=== PATIENT | female | born 1940 | race Caucasian/White ===

== ENCOUNTER → 2020-06-26 11:37 | Outpatient (BNVA) | payer MEDICARE, SELFPAY | PROVIDERS: PCP Internal Medicine; Referring Provider Internal Medicine; Visit Provider Nurse Practitioner | DX: K58.0 Irritable bowel syndrome with diarrhea (principal); K21.9 Gastro-esophageal reflux disease without esophagitis; K80.20 Calculus of gallbladder without cholecystitis without obstruction; Z79.899 Other long term (current) drug therapy | CPT/HCPCS: 99213 ==

== ENCOUNTER → 2020-07-02 09:11 | Outpatient (BNVA) | payer MEDICARE, SELFPAY | PROVIDERS: PCP Internal Medicine; Referring Provider Internal Medicine; Visit Provider Internal Medicine | DX: J44.9 Chronic obstructive pulmonary disease, unspecified (principal); E66.9 Obesity, unspecified; Z68.41 Body mass index [BMI] 40.0-44.9, adult; Z79.899 Other long term (current) drug therapy | CPT/HCPCS: 99213 ==

== ENCOUNTER 2020-08-20 16:17 | Outpatient (REF) | payer MEDICARE, SELFPAY ==
[2020-08-20 17:27] LABS: Alanine Aminotransferase 16 U/L (0-31); Albumin Level 3.9 g/dL (3.5-5.0); Alkaline Phosphatase 97 U/L (39-117); Anion Gap 13 (12-20); Aspartate Amino Transferase 26 U/L (5-31); Bilirubin Total 0.5 mg/dL (0.0-1.0); Blood Urea Nitrogen 18 mg/dL (9-16); Calcium 9.8 mg/dL (8.4-10.2); Carbon Dioxide 29 mmol/L (22-29); Chloride 105 mmol/L (96-108); Estimated Glomerular Filt Rate 37; Glucose Random 116 mg/dL (60-115); Potassium 4.2 mmol/l (3.3-5.1); Sodium 143 mmol/L (135-145); Total Protein 7.4 g/dL (6.5-8.0)
[2020-08-20 17:48] LABS: Free T4 (Free Thyroxine) 0.99 ng/dL (0.71-1.85); Thyroid Stimulating Hormone 3.31 uIU/mL (0.32-4.0); Vitamin D 25-OH Total 64.8 ng/mL (>30)
== END 2020-08-20 16:18 | disposition home or self-care (01) ==
LOC: HO.LAB 16:17
PROVIDERS: PCP Internal Medicine; Visit Provider Internal Medicine
DX: J44.9 Chronic obstructive pulmonary disease, unspecified (principal); N18.9 Chronic kidney disease, unspecified; E03.9 Hypothyroidism, unspecified; M85.89 Other specified disorders of bone density and structure, multiple sites
CPT/HCPCS: 80053; 82306; 84439; 84443

== ENCOUNTER 2020-10-09 11:24 | Outpatient (REF) | payer MEDICARE, SELFPAY ==
--- NOTE | 2020-10-09 | MM_ITS ---
EXAMINATION: MM SCREENING DIGITAL BREAST TOMOSYNTHESIS, BILATERAL CLINICAL INFORMATION: Screening. Asymptomatic. Prior history left lumpectomy for breast cancer 2014. COMPARISON: Mammography: 09/28/2018, 02/22/2018, 02/07/2017, 02/04/2016 TECHNIQUE: Digital breast tomosynthesis is performed in both the craniocaudal and mediolateral oblique views along with computer-aided detection (CAD). Synthesized 2D images are generated from the tomosynthesis. Additional exaggerated left CC view is provided. FINDINGS: There are scattered areas of fibroglandular density (ACR BI-RADS breast composition Category b). There are post therapy changes on left with mild reduced breast size and old scarring upper outer quadrant. Neither breast shows interval mass or architectural abnormality or abnormal calcifications. There are no significant changes. MM/MM tomosynthesis screening BI IMPRESSION: No mammographic evidence of malignancy. Post therapy changes left breast. ASSESSMENT: BI-RADS 2: Benign RECOMMENDATION: Routine annual mammography screening. This patient's information was entered into a reminder system with a target due date for their next mammogram.
== END 2020-10-09 11:25 | disposition home or self-care (01) ==
LOC: HO.MAMMO 11:24
PROVIDERS: Visit Provider Internal Medicine
DX: Z12.31 Encounter for screening mammogram for malignant neoplasm of breast (principal)
CPT/HCPCS: 77063; 77067

== ENCOUNTER 2020-10-21 16:49 | Outpatient (REF) | payer MEDICARE, SELFPAY ==
[2020-10-21 18:25] LABS: Anion Gap 14 (12-20); Blood Urea Nitrogen 21 mg/dL (9-16); Carbon Dioxide 30 mmol/L (22-29); Chloride 103 mmol/L (96-108); Estimated Glomerular Filt Rate 37; Potassium 4.6 mmol/L (3.3-5.1); Sodium 142 mmol/L (135-145)
== END 2020-10-21 16:50 | disposition home or self-care (01) ==
LOC: HO.LAB 16:49
PROVIDERS: PCP Internal Medicine; Visit Provider Internal Medicine Hypertension Specialist
DX: R31.9 Hematuria, unspecified (principal); I12.9 Hypertensive chronic kidney disease with stage 1 through stage 4 chronic kidney disease, or unspecified chronic kidney disease; N18.9 Chronic kidney disease, unspecified
CPT/HCPCS: 36415; 80051; 82565; 84520

== ENCOUNTER → 2020-11-04 09:32 | Outpatient (BNVA) | payer MEDICARE, SELFPAY | PROVIDERS: Visit Provider Internal Medicine | DX: E66.9 Obesity, unspecified (principal); J45.909 Unspecified asthma, uncomplicated; J44.9 Chronic obstructive pulmonary disease, unspecified | CPT/HCPCS: 99212 ==

== ENCOUNTER → 2020-11-23 08:04 | Outpatient (BNV) | payer MEDICARE, SELFPAY | PROVIDERS: PCP Internal Medicine; Visit Provider Internal Medicine | DX: R92.1 Mammographic calcification found on diagnostic imaging of breast (principal); Z85.3 Personal history of malignant neoplasm of breast; M81.0 Age-related osteoporosis without current pathological fracture | CPT/HCPCS: 99213; 99214 ==

== ENCOUNTER → 2020-12-02 08:46 | Outpatient (BNVA) | payer MEDICARE, SELFPAY | PROVIDERS: PCP Internal Medicine; Visit Provider Surgery | DX: C50.919 Malignant neoplasm of unspecified site of unspecified female breast (principal) | CPT/HCPCS: 99212 ==

== ENCOUNTER 2020-12-02 11:04 | Outpatient (REF) | payer MEDICARE, SELFPAY ==
--- NOTE | ~2020-12-02 | XR_ITS ---
EXAMINATION: XR CERVICAL SPINE CLINICAL INFORMATION: Pain. COMPARISON: None TECHNIQUE: 3 views of the cervical spine FINDINGS: There is curvature of the mid cervical spine to the left and lower cervical and upper thoracic spine to the right. Bone alignment is otherwise normal. There is degenerative spondylosis and degenerative disc disease at C4-C5 C5-C6 and C6-C7. Prevertebral soft tissues are normal. XR/XR cervical spine min 6V IMPRESSION: Degenerative spondylosis and degenerative disc disease from C4-C5 to C6-C7.
[2020-12-02 13:52] LABS: MANUAL DIFF FLAG NO
[2020-12-02 14:12] LABS: Basophils Absolute Auto 0.1 X10*3/uL (0.0-0.2); Basophils Percent Auto 1.1 % (0-2); Eosinophils Absolute Auto 0.3 X10*3/uL (0.0-0.4); Eosinophils Percent Auto 4.4 % (0-4); Hematocrit 39.5 % (37-47); Hemoglobin 12.6 g/dl (12.0-16.0); Imm Gran Abs Auto 0.03 X10*3/uL (0.00-0.03); Imm Gran Pct Auto 0.4 % (0.0-0.4); Lymphocytes Absolute Auto 2.2 X10*3/uL (1.2-4.9); Lymphocytes Percent Auto 30.8 % (20-40); Mean Corpuscular HGB Conc 31.9 g/dl (31.0-35.0); Mean Corpuscular Hemoglobin 32.1 pg (27.0-33.0); Mean Corpuscular Volume 100.5 fL (80-98); Mean Platelet Volume 10.5 fL (9.4-12.3); Monocytes Absolute Auto 0.7 X10*3/uL (0.1-1.2); Monocytes Percent Auto 10.2 % (2-11); Neutrophils Absolute Auto 3.8 X10*3/uL (2.0-8.3); Neutrophils Percent Auto 53.1 % (45-73); Platelet Count 249 X10*3/uL (160-400); Red Blood Count 3.93 X10*6/uL (4.20-5.50); Red Cell Distribution Width 12.7 % (11.0-16.0); White Blood Count 7.2 X10*3/uL (4.8-10.8)
[2020-12-02 14:26] LABS: Alanine Aminotransferase 13 U/L (0-31); Albumin Level 3.8 g/dL (3.5-5.0); Alkaline Phosphatase 76 U/L (39-117); Anion Gap 14 (12-20); Aspartate Amino Transferase 22 U/L (5-31); Bilirubin Total 0.8 mg/dL (0.0-1.0); Blood Urea Nitrogen 23 mg/dL (9-16); C Reactive Protein 0.32 mg/dL (< or = 0.50); Calcium 9.7 mg/dL (8.4-10.2); Carbon Dioxide 28 mmol/L (22-29); Chloride 104 mmol/L (96-108); Estimated Glomerular Filt Rate 42; Glucose Random 87 mg/dL (60-115); Potassium 3.7 mmol/L (3.3-5.1); Sodium 142 mmol/L (135-145); Total Protein 7.2 g/dL (6.5-8.0)
[2020-12-02 14:43] LABS: Free T4 (Free Thyroxine) 0.84 ng/dL (0.71-1.85); Thyroid Stimulating Hormone 2.02 uIU/mL (0.32-4.0)
== END 2020-12-02 11:05 | disposition home or self-care (01) ==
LOC: HO.10HDL 11:04
PROVIDERS: Visit Provider Internal Medicine
DX: M54.2 Cervicalgia (principal); I12.9 Hypertensive chronic kidney disease with stage 1 through stage 4 chronic kidney disease, or unspecified chronic kidney disease; N18.9 Chronic kidney disease, unspecified; E03.9 Hypothyroidism, unspecified
CPT/HCPCS: 36415; 72052; 80053; 84439; 84443; 85025; 86140; 99212

== ENCOUNTER 2020-12-08 10:14 | Outpatient (REF) | payer MEDICARE, SELFPAY ==
--- NOTE | ~2020-12-08 | MR_ITS ---
EXAMINATION: MR CERVICAL SPINE WITHOUT CONTRAST CLINICAL INFORMATION: 80-year-old with neck pain and right arm radiculopathy. COMPARISON: 12/02/2020 x-rays showed degenerative changes. TECHNIQUE: MRI of the cervical spine was obtained using routine sequences without contrast. FINDINGS: Alignment: There is lordotic loss with straightening of the cervical spine which is nonspecific but could be partly positional in nature. Minimal anterolisthesis at T2-T3 and T3-T4 is noted with trace anterolisthesis at C3-C4. Craniocervical Junction/C1-C2 Articulations:?Intact and aligned. Visualized Intracranial Structures: Mild diffuse generalized volume loss. 5 mm patchy T2 hyperintensity noted in the left peritrigonal white matter, likely chronic ischemic change. Vertebral Bodies: Normal height. Bone Marrow: Degenerative endplate changes at C4-C5 and C5-C6. Otherwise, no suspicious marrow replacing process or focally aggressive osseous lesion. Paraspinal Soft Tissues: There are bilateral parotid masses involving the superficial lobes of both parotid glands, which measure approximately 2.5 cm in maximum dimension on the right and 1.9 cm maximum dimension on the left. The bilaterality suggests the possibility of Warthin's tumors. No obvious cervical lymphadenopathy. C2-C3: Disc space height is well maintained without disc herniation, spondylosis, DJD, canal or neural foraminal stenosis. C3-C4: Disc space height is well maintained with minimal anterolisthesis and a tiny central disc protrusion with minimal indentation of the ventral thecal sac without cord impingement. There is minor facet arthrosis bilaterally without significant canal or neural foraminal stenosis. C4-C5: Moderate loss of disc space height is noted with disc desiccation and degenerative marrow signal changes along the endplates with moderate anterior marginal spondylosis. There is broad-based posterior disc osteophyte complex, with flattening of the dural sac without cord compression. There is ksij-li-odfecupc central spinal canal stenosis, and there is bilateral uncovertebral spurring with facet hypertrophic change, with moderate right-sided and mild left-sided neural foraminal stenosis. C5-C6: Moderate loss of disc space height and disc desiccation are noted with degenerative marrow signal changes along the endplates and moderate anterior marginal spondylosis. Posterior disc osteophyte complex is noted with effacement of the dural sac asymmetric to the left, with flattening of the ventral aspect of the spinal cord on the left associated with cord impingement. Some degree of spinal cord volume loss is suspected suggesting some degree of spondylitic myelomalacia. There is bilateral uncovertebral spurring with moderate right-sided and mild left-sided neural foraminal stenosis, and there is moderate central spinal canal stenosis asymmetric to the left. C6-C7: Moderate loss of disc space height is noted with anterior marginal spondylosis and disc desiccation. Mild posterior disc osteophyte complex is noted with mild flattening of the dural sac without cord impingement. There is mild spinal canal stenosis. There is bilateral uncovertebral spurring, left more than right, with moderate left-sided neural foraminal stenosis. C7-T1: Disc space height is well maintained. Minor spondylosis noted. No disc herniation, significant DJD, canal or neural foraminal stenosis. The cervical and visualized upper thoracic spinal cord is normal in signal intensity throughout, without focal lesion, edema or syrinx formation. Possible mild spinal cord volume loss at C5-C6. MR/MR cervical spine wo con IMPRESSION: 1. Lordotic loss, with multilevel subluxations. Multilevel DDD, spondylosis and DJD with posterior disc osteophyte complexes are noted. 2. 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 3. Multilevel bilateral neural foraminal stenosis, mostly [id number] in degree, as detailed above. 4. BILATERAL PAROTID MASSES ARE SUSPECTED. THIS COULD REFLECT WARTHIN'S TUMORS. CT OF THE NECK WITH CONTRAST IS RECOMMENDED TO FURTHER ASSESS. 5. Small patchy zone of T2 hyperintensity in the left peritrigonal white matter is noted likely reflecting minimal chronic microvascular ischemic white matter change. The [facility] staff will call to confirm receipt of this report with acknowledgment of the findings and recommendations.
== END 2020-12-08 10:15 | disposition home or self-care (01) ==
LOC: HO.MRI 10:14
PROVIDERS: Visit Provider Internal Medicine
DX: M54.12 Radiculopathy, cervical region (principal); M54.9 Dorsalgia, unspecified; R93.7 Abnormal findings on diagnostic imaging of other parts of musculoskeletal system
CPT/HCPCS: 72141

== ENCOUNTER → 2021-01-14 11:12 | Outpatient (BNVA) | payer MEDICARE, SELFPAY | PROVIDERS: PCP Internal Medicine; Visit Provider Nurse Practitioner | DX: Z13.89 Encounter for screening for other disorder (principal) | CPT/HCPCS: Q3014 ==

== ENCOUNTER 2021-03-11 05:15 | Emergency (ER) | payer MEDICARE, SELFPAY ==
--- NOTE | ~2021-03-11 | XR_ITS ---
EXAMINATION: XR CHEST CLINICAL INFORMATION: Cough. COMPARISON: None TECHNIQUE: Frontal view of the chest was obtained. FINDINGS: The lungs are hypoexpanded without acute pneumonic process. Heart size is enlarged. The pulmonary vascularity is normal. No gross bony abnormality seen. XR/XR chest 1V IMPRESSION: Mild cardiomegaly. No acute process seen
--- NOTE | ~2021-03-11 | CT_ITS ---
EXAMINATION: CT SOFT TISSUE NECK WITHOUT CONTRAST CLINICAL INFORMATION: Evaluate abscess right side. COMPARISON: CT scan of the thoracic spine 09/19/2019. TECHNIQUE: Helical imaging was performed in the axial plane with generation of coronal and sagittal reformatted images. This CT examination was performed using dose optimization techniques as appropriate, variously including the following: *Automated exposure control *Adjustment of mA and/or kV according to patient size (this includes techniques or standardized protocols for targeted exams where dose is matched to indication/reason for exam; i.e. extremities or head) *Use of iterative reconstruction technique DLP: 815 mGy-cm FINDINGS: The diagnostic accuracy of this examination is limited due to the absence of intravenous contrast. At the site of the palpable tissue marker placed over the right parotid gland and there is a well marginated intraparotid mass that measures up to 2.2 cm in maximal transaxial dimension. A similar soft tissue mass is visualized within the tail of the left parotid gland. No pathologically enlarged cervical lymph nodes. No mediastinal or axillary adenopathy is visualized within the [id number]-mydl of this examination. Pharyngeal mucosal spaces are symmetric. Parapharyngeal and retromaxillary fat is preserved. Business Executive spaces are symmetric. Submandibular glands are normal. The tongue base and epiglottis are normal. Preepiglottic fat is preserved. Glottic and subglottic airways are widely patent. Scattered atherosclerotic calcification involves the aortic arch apex. Carotid spaces are unremarkable. Visualized lung apices are clear. There is a stable compression deformity of the T7 vertebral body that is included within the fnkrg-[id number]-umhl of this examination with impaction of the lower endplate resulting in approximately 40% vertebral height loss centrally and slight anterior wedging. Otherwise no acute osseous finding. CT/CT soft tissue neck wo con IMPRESSION: There are well marginated soft tissue masses involving both parotid glands. Given the bilaterality, these findings may represent Warthin's tumors or perhaps pleomorphic adenomas. The possibility of enlarged intraparotid lymph nodes can also be considered. No worrisome soft tissue mass or adenopathy is visualized elsewhere within the [id number] of this examination. A compression deformity of the T7 vertebral body has remained stable when compared to CT imaging from 09/19/2019.
[2021-03-11 05:55] VITALS: BP 197/91; RESP 20; TEMP 35.7; O2SAT 96; BMI 30.2
--- NOTE | 2021-03-11 07:05 | ED_ITS ---
HPI - General Adult General Chief complaint: General Medical Stated complaint: swollen neck/face Time Seen by Provider: 03/11/21 07:04 Source: patient Mode of arrival: ambulatory Limitations: no limitations History of Present Illness HPI narrative: 80 yo female with hx of COPD, chronic pain issues, IBS, GERD, breast cancer comes in with 2 days of overall feeling unwell as well as swelling and redness of her parotid gland areas post biopsy 03/01 she is not on antibiotics, tried tramadol and oxycodone without relief, worried they are infected, from waiting room to treatment room the walk also triggered her COPD a nd she is wheezing MD complaint: facial pain Onset (ago): day(s) (2) Location: face Severity: severe Quality: aching, crushing and dull Pain Consistency: constant Relieving factors: none Exacerbating factors: none Associated symptoms: cough, headaches, loss of appetite, malaise and shortness of breath Treatments prior to arrival: other (tried oxycodone and tramadol without relief) Related Data Home Medications Medication Instructions Recorded Confirmed alprazolam 0.25 mg tablet 0.25 mg PO BID 06/15/20 03/11/21 cholecalciferol (vitamin D3) 25 25 mcg PO DAILY 06/15/20 03/11/21 mcg (1,000 unit) capsule hydrochlorothiazide 25 mg tablet 25 mg PO DAILY 06/15/20 03/11/21 levothyroxine 50 mcg tablet 50 mcg PO DAILY 06/15/20 03/11/21 metoprolol succinate 50 mg 50 mg PO DAILY 06/15/20 03/11/21 tablet,extended release 24 hr omeprazole 40 mg capsule,delayed 40 mg PO DAILY 06/15/20 03/11/21 release oxycodone 5 mg tablet 5 mg PO QID PRN 06/15/20 03/11/21 tiotropium bromide 18 mcg capsule 18 mcg INHALATION DAILY 06/15/20 03/11/21 with inhalation device tramadol 50 mg tablet 50 mg PO BID PRN 06/15/20 03/11/21 albuterol sulfate 2.5 mg INHALATION Q4H PRN 03/11/21 03/11/21 aspirin [Aspir-81] 81 mg PO DAILY 03/11/21 03/11/21 fluticasone propion-salmeterol 1 inh INHALATION BID 03/11/21 03/11/21 [Advair Diskus] Previous Rx's Medication Instructions Recorded Ventolin HFA 90 mcg/actuation 2 puff INHALATION Q6H PRN #18 g NS 07/30/20 aerosol inhaler imipramine HCl 10 mg tablet 10 mg PO BEDTIME #90 tab 11/24/20 doxycycline hyclate 100 mg PO BID 7 Days #14 cap 03/11/21 prednisone 40 mg PO DAILY 5 Days #10 tab 03/11/21 Allergies Allergy/AdvReac Type Severity Reaction Status Date / Time adhesive [ADHESIVE] Allergy Unknown UNKNOWN Verified 03/11/21 05:55 codeine [CODEINE] Allergy Unknown UNKNOWN, Verified 03/11/21 05:55 rash fish derived [FISH] Allergy Unknown HIVES Verified 03/11/21 05:55 gabapentin Allergy Unknown severe Verified 03/11/21 05:55 urinary incont. hydrocodone [Vicodin] Allergy Unknown Unknown Verified 03/11/21 05:55 Iodinated Contrast Media Allergy Unknown HIVES Verified 03/11/21 05:55 [IV Dye, Iodine Containing] nitrofurantoin Allergy Unknown HIVES Verified 03/11/21 05:55 [Nitrofurantoin] Penicillins [PENICILLINS] Allergy Unknown RASH Verified 03/11/21 05:55 Sulfa (Sulfonamide Allergy Unknown RASH Verified 03/11/21 05:55 Antibiotics) [SULFA (SULFONAMIDE ANTIBIOTICS)] valsartan [From DIOVAN] Allergy Unknown HIVES Verified 03/11/21 05:55 vancomycin [VANCOMYCIN] Allergy Unknown RASH Verified 03/11/21 05:55 ibuprofen [IBUPROFEN] AdvReac Unknown UNKNOWN Verified 03/11/21 05:55 Review of Systems Review of Systems: Constitutional : No Weight loss, No Fever, pos Chills, pos Fatigue, No Malaise ENT/Mouth : No sore throat, No Rhinorrhea Eyes: No Eye Pain, No Swelling, No Redness Cardiovascular : No Chest Pain, pos SOB, No Dyspnea on Exertion, No Orthopnea, No Edema, No Palpitations Respiratory : No Cough, No Sputum, No Wheezing Gastrointestinal : No Nausea, No Vomiting, No Diarrhea, No Constipation, No abdominal Pain, No Hematochezia, No Melena Genitourinary : No Dysuria, No Urinary Frequency, No Hematuria, Musculoskeletal : pos joint pain, pos Myalgias, No Joint Swelling Skin : pos Skin Lesions, No rash Neuro : pos Weakness, No Numbness, No Dizziness, No Headache Psych : No Anxiety/Panic, No Depression Heme/Lymph: No Bruising, No Bleeding,No Lymphadenopathy Endocrine : No Polyuria, No Polydipsia All other systems reviewed and are negative [facility] Past Medical History Attestation statement: The following information was validated with the patient. Medical History Asthma Breast cancer C. difficile colitis COPD (chronic obstructive pulmonary disease) Fusion of toes of right foot Obesity Ovarian cancer Right humeral fracture Surgical History H/O colonoscopy H/O hysterectomy for benign disease H/O kyphoplasty H/O lymph node biopsy History of tonsillectomy and adenoidectomy History of total bilateral knee replacement Hx of cataract surgery Family History Family History Father No problems noted. Mother Breast cancer Sister Breast cancer Social History Social History (Updated 03/11/21 @ 07:20 by Jacey Thomason DO) Alcohol intake: never Patient Tobacco Use Status: Former Tobacco user Smoked in Last 30 Days: No Use of substances other than those prescribed or required for medical reasons: No Substance Use Type: Marijuana Advance Directives: No Advance Directives Information Provided: No Physical Exam Vital Signs: Vital Signs: Last Vital Signs Temp 96.3 F L 03/11/21 05:55 Pulse 88 03/11/21 12:36 Resp 18 03/11/21 12:36 BP 162/76 H 03/11/21 12:36 Pulse Ox 96 03/11/21 12:36 Body Mass Index 30.2 Appearance: Alert. Oriented X3. anxious in pain mild acute distress. Eyes: Pupils equal, round and reactive to light. ENT: Pharynx normal R bilateral mild swelling, warmth, erythema over mandibles no submandibular swelling noted, no swelling into the neck Neck: Normal inspection. Neck supple. CVS: Normal heart rate and rhythm. Pulses normal. Respiratory: No respiratory distress. Breath sounds audible diffuse end exp wheezes Abdomen: Soft and nontender. Skin: Skin warm and dry. Normal skin color. Normal skin turgor. Extremities: No lower extremity edema. No calf ttp Neuro: Oriented X 3. No motor deficit. No sensory deficit. Course Course Course Narrative: feels much better, resp status improved, R gland is more swollen now but she feels better - CT scan for abscess ordered no discrete abscess will refer to her ENT and start on doxy for possible infection - NO PROGRESSION OF SWELLING AT THIS TIME ON RECHECK Medical Decision Making MDM Narrative Medical decision making narrative: 80 yo female with hx of COPD, chronic pain issues, IBS, GERD, breast cancer comes in with 2 days of overall feeling unwell as well as swelling and redness of her parotid gland areas post biopsy 03/01 she is not on antibiotics, tried tramadol and oxycodone without relief, worried they are infected, from waiting room to treatment room the walk also triggered her COPD and she is wheezing she will need nebs, steroids for her COPD flare but given her swelling in the area of biopsy which appears newly infected - labs, cultures, IV morphine for pain, start levofloxacin given her sig allergies to medications, dispo per results and findings, swelling is not severe at the biopsy sites they are soft doubt abscess Lab Data Result diagrams: 03/11/21 07:35 03/11/21 07:35 Labs: Lab Results 03/11/21 03/11/21 03/11/21 Range/Units 07:35 07:35 07:35 WBC 10.9 H (4.8-10.8) X10*3/uL RBC 4.22 (4.20-5.50) X10*6/uL Hgb 13.8 (12.0-16.0) g/dl Hct 41.4 (37-47) % MCV 98.1 H (80-98) fL MCH 32.7 (27.0-33.0) pg MCHC 33.3 (31.0-35.0) g/dl RDW 12.4 (11.0-16.0) % Plt Count 262 (160-400) X10*3/uL MPV 10.1 (9.4-12.3) fL Immature Gran % (Auto) 0.5 H (0.0-0.4) % Neut % (Auto) 69.7 (45-73) % Lymph % (Auto) 19.1 L (20-40) % [place] % (Auto) 8.1 (2-11) % Eos % (Auto) 2.1 (0-4) % Baso % (Auto) 0.5 (0-2) % Lymph # (Auto) 2.1 (1.2-4.9) X10*3/uL [place] # (Auto) 0.9 (0.1-1.2) X10*3/uL Eos # (Auto) 0.2 (0.0-0.4) X10*3/uL Baso # (Auto) 0.1 (0.0-0.2) X10*3/uL Abs Immat Gran (auto) 0.06 H (0.00-0.03) X10*3/uL Absolute Neuts (auto) 7.6 (2.0-8.3) X10*3/uL Absolute Nucleated RBC 0.000 (0.0-0.012) X10*3/uL Nucleated RBC % (auto) 0.0 (0.0-0.2) /100WBC Sodium 138 (135-145) mmol/L Potassium 3.8 (3.3-5.1) mmol/L Chloride 102 (96-108) mmol/L Carbon Dioxide 28 (22-29) mmol/L Anion Gap 12 (12-20) BUN 13 (9-16) mg/dL Creatinine 1.21 (0.5-1.4) mg/dL Estim Creat Clear Calc 31.0 Estimated GFR 43 Random Glucose 110 (60-115) mg/dL Lactic Acid (0.5-2.0) mmol/L Calcium 10.3 H D (8.4-10.2) mg/dL Magnesium 1.4 L* (1.6-2.6) mg/dL Total Bilirubin 1.0 (0.0-1.0) mg/dL Direct Bilirubin 0.5 (0.0-0.5) mg/dL AST 24 (5-31) U/L ALT 13 (0-31) U/L Alkaline Phosphatase 74 (39-117) U/L Total Protein 7.6 (6.5-8.0) g/dL Albumin 4.0 (3.5-5.0) g/dL COVID-19 ([facility]) Negative (Negative) COVID-19 Clin Com See Note 03/11/21 Range/Units 07:35 WBC (4.8-10.8) X10*3/uL RBC (4.20-5.50) X10*6/uL Hgb (12.0-16.0) g/dl Hct (37-47) % MCV (80-98) fL MCH (27.0-33.0) pg MCHC (31.0-35.0) g/dl RDW (11.0-16.0) % Plt Count (160-400) X10*3/uL MPV (9.4-12.3) fL Immature Gran % (Auto) (0.0-0.4) % Neut % (Auto) (45-73) % Lymph % (Auto) (20-40) % [place] % (Auto) (2-11) % Eos % (Auto) (0-4) % Baso % (Auto) (0-2) % Lymph # (Auto) (1.2-4.9) X10*3/uL [place] # (Auto) (0.1-1.2) X10*3/uL Eos # (Auto) (0.0-0.4) X10*3/uL Baso # (Auto) (0.0-0.2) X10*3/uL Abs Immat Gran (auto) (0.00-0.03) X10*3/uL Absolute Neuts (auto) (2.0-8.3) X10*3/uL Absolute Nucleated RBC (0.0-0.012) X10*3/uL Nucleated RBC % (auto) (0.0-0.2) /100WBC Sodium (135-145) mmol/L Potassium (3.3-5.1) mmol/L Chloride (96-108) mmol/L Carbon Dioxide (22-29) mmol/L Anion Gap (12-20) BUN (9-16) mg/dL Creatinine (0.5-1.4) mg/dL Estim Creat Clear Calc Estimated GFR Random Glucose (60-115) mg/dL Lactic Acid 1.7 (0.5-2.0) mmol/L Calcium (8.4-10.2) mg/dL Magnesium (1.6-2.6) mg/dL Total Bilirubin (0.0-1.0) mg/dL Direct Bilirubin (0.0-0.5) mg/dL AST (5-31) U/L ALT (0-31) U/L Alkaline Phosphatase (39-117) U/L Total Protein (6.5-8.0) g/dL Albumin (3.5-5.0) g/dL COVID-19 ([facility]) (Negative) COVID-19 Clin Com ECG Data Attestation: I personally reviewed and interpreted this ECG as follows: Interpretation: Rate: 87 Rhythm: NSR [place]: normal Normal P waves. Normal BRAD. Normal QRS complex. ST T wave : nonspecific, no NAA, q waves inf leads qTC: normal prior studies: no acute ischemia The study has been interpreted contemporaneously by me. . Discharge Plan Discharge Clinical Impression: Hypomagnesemia COPD (chronic obstructive pulmonary disease) Qualifiers: COPD type: COPD with acute exacerbation Qualified Code(s): J44.1 - Chronic obstructive pulmonary disease with (acute) exacerbation Cellulitis Qualifiers: Site of cellulitis: face Qualified Code(s): L03.211 - Cellulitis of face Patient Disposition: Home, Self-Care Instructions: COPD (Chronic Obstructive Pulmonary Disease) (ED), Hypomagnesemia (ED) Additional Instructions: return to ED for any worsening symptoms or concerns PLEASE CALL YOUR ENT DOCTOR TODAY Prescriptions: New doxycycline hyclate 100 mg capsule 100 mg PO BID 7 Days Qty: 14 RF: 0 prednisone 20 mg tablet 40 mg PO DAILY 5 Days Qty: 10 RF: 0 No Action albuterol sulfate [Ventolin HFA] 90 mcg/actuation HFA aerosol inhaler 2 puff inhalation Q6H PRN (Reason: shortness of breath or wheezing) Qty: 18 RF: 3 imipramine HCl 10 mg tablet 10 mg PO BEDTIME Qty: 90 RF: 3 aspirin [Aspir-81] 81 mg Tablet,Delayed Release (Dr/Ec) 81 mg PO DAILY RF: 0 albuterol sulfate 2.5 mg /3 mL (0.083 %) Solution For Nebulization 2.5 mg INHALATION Q4H PRN (Reason: Wheezing) RF: 0 fluticasone propion-salmeterol [Advair Diskus] 500-50 mcg/dose Blister With Device 1 inh INHALATION BID RF: 0 oxycodone 5 mg tablet 5 mg PO QID PRN (Reason: Pain) RF: 0 Spiriva with HandiHaler 18 mcg capsule, w/inhalation device 18 mcg inhalation DAILY RF: 0 tramadol 50 mg tablet 50 mg PO BID PRN (Reason: Pain) RF: 0 alprazolam 0.25 mg tablet 0.25 mg PO BID RF: 0 metoprolol succinate 50 mg tablet extended release 24 hr 50 mg PO DAILY RF: 0 hydrochlorothiazide 25 mg tablet 25 mg PO DAILY RF: 0 levothyroxine 50 mcg tablet 50 mcg PO DAILY RF: 0 omeprazole 40 mg capsule,delayed release(DR/EC) 40 mg PO DAILY RF: 0 cholecalciferol (vitamin D3) 25 mcg (1,000 unit) capsule 25 mcg PO DAILY RF: 0 Interventions: ED Discharge Assessment Last Done: 03/11/21 12:33 Discharge Date/Time: 03/11/21 12:36
--- NOTE | 2021-03-11 07:14 | ECG_ITS ---
Test Reason : SHORT OF BREATH Blood Pressure : / mmHG Vent. Rate : 087 BPM Atrial Rate : 087 BPM P-R Int : 162 ms QRS Dur : 082 ms QT Int : 376 ms P-R-T Axes : 062 021 066 degrees QTc Int : 452 ms Normal sinus rhythm Inferior infarct (cited on or before 25-AUG-2019) Abnormal ECG When compared with ECG of 25-AUG-2019 03:51, Nonspecific T wave abnormality, worse in Anterior leads Referred By: Jacey Thomason Electronically Signed By:Star Jama
[2021-03-11] MEDS: Albuterol Sulfate (0.083%) 2.5 MG/3 ML VIAL.NEB 5 MG INHALE (07:17)
[2021-03-11 07:18] VITALS: PULSE 78; O2SAT 98
[2021-03-11] MEDS: ondansetron HCL 4 MG/2 ML VIAL IVPUSH (07:42)
[2021-03-11] MEDS: methylPREDNISolone Sod Succ 125 MG/2 ML VIAL IVPUSH (07:42)
[2021-03-11] MEDS: levoFLOXacin/D5W 500 MG/100 ML PIGGYBACK 100 MG IV (07:42)
[2021-03-11] MEDS: Morphine Sulfate 4 MG/ML CARTRIDGE IVPUSH ×2 (07:42→10:56)
[2021-03-11 07:43] LABS: MANUAL DIFF FLAG NO
[2021-03-11 07:45] LABS: Basophils Absolute Auto 0.1 X10*3/uL (0.0-0.2); Basophils Percent Auto 0.5 % (0-2); Eosinophils Absolute Auto 0.2 X10*3/uL (0.0-0.4); Eosinophils Percent Auto 2.1 % (0-4); Hematocrit 41.4 % (37-47); Hemoglobin 13.8 g/dl (12.0-16.0); Imm Gran Abs Auto 0.06 X10*3/uL (0.00-0.03); Imm Gran Pct Auto 0.5 % (0.0-0.4); Lymphocytes Absolute Auto 2.1 X10*3/uL (1.2-4.9); Lymphocytes Percent Auto 19.1 % (20-40); Mean Corpuscular HGB Conc 33.3 g/dl (31.0-35.0); Mean Corpuscular Hemoglobin 32.7 pg (27.0-33.0); Mean Corpuscular Volume 98.1 fL (80-98); Mean Platelet Volume 10.1 fL (9.4-12.3); Monocytes Absolute Auto 0.9 X10*3/uL (0.1-1.2); Monocytes Percent Auto 8.1 % (2-11); Neutrophils Absolute Auto 7.6 X10*3/uL (2.0-8.3); Neutrophils Percent Auto 69.7 % (45-73); Platelet Count 262 X10*3/uL (160-400); Red Blood Count 4.22 X10*6/uL (4.20-5.50); Red Cell Distribution Width 12.4 % (11.0-16.0); White Blood Count 10.9 X10*3/uL (4.8-10.8)
[2021-03-11 08:00] LABS: COVID-19 Test Negative (Negative)
[2021-03-11 08:02] LABS: Lactic Acid 1.7 mmol/L (0.5-2.0)
--- NOTE | 2021-03-11 08:08 | PHA.MEDREC ---
Pharmacy Consult ? Medication Reconciliation Pharmacy has completed the medication reconciliation. Patient reports a new inhaler that was recently prescribed that is purple and is 500 and 50. This description match Advair Diskus 500-50, however patient has no claim history for this medication. Glo Oleary, PharmD
[2021-03-11 08:27] LABS: Alanine Aminotransferase 13 U/L (0-31); Alkaline Phosphatase 74 U/L (39-117); Anion Gap 12 (12-20); Aspartate Amino Transferase 24 U/L (5-31); Bilirubin Direct 0.5 mg/dL (0.0-0.5); Blood Urea Nitrogen 13 mg/dL (9-16); Carbon Dioxide 28 mmol/L (22-29); Chloride 102 mmol/L (96-108); Estimated Glomerular Filt Rate 43; Glucose Random 110 mg/dL (60-115); Magnesium 1.4 mg/dL (1.6-2.6); Potassium 3.8 mmol/L (3.3-5.1); Sodium 138 mmol/L (135-145); Total Protein 7.6 g/dL (6.5-8.0)
[2021-03-11 08:32] LABS: Calcium 10.3 mg/dL (8.4-10.2)
[2021-03-11] MEDS: Magnesium Sulfate/H2O 2 GM/50 ML PIGGYBACK IV (08:59)
[2021-03-11 09:01] VITALS: BP 136/77; PULSE 93; RESP 20; O2SAT 97
[2021-03-11 10:57] VITALS: BP 164/88; PULSE 97; RESP 18; O2SAT 96
[2021-03-11 12:36] VITALS: BP 162/76; PULSE 88; RESP 18; O2SAT 96
== END 2021-03-11 12:36 | disposition home or self-care (01) ==
PROVIDERS: Emergency Provider Emergency Medicine; PCP Internal Medicine
DX: L03.211 Cellulitis of face (principal); J44.1 Chronic obstructive pulmonary disease with (acute) exacerbation; E83.42 Hypomagnesemia; Z79.899 Other long term (current) drug therapy; Z20.822 Contact with and (suspected) exposure to COVID-19
CPT/HCPCS: 36415; 70490; 71045; 80048; 80076; 83605; 83735; 85025; 87040; 87635; 93005; 94640; 96365; 96366; 96368; 96375; 99284; 99285; J1956; J2270; J2405; J2930; J3475

== ENCOUNTER → 2021-03-17 09:39 | Outpatient (BNVA) | payer MEDICARE, SELFPAY | PROVIDERS: PCP Internal Medicine; Visit Provider Internal Medicine | DX: J45.909 Unspecified asthma, uncomplicated (principal); J44.1 Chronic obstructive pulmonary disease with (acute) exacerbation; E66.9 Obesity, unspecified; R59.0 Localized enlarged lymph nodes | CPT/HCPCS: 99212 ==

== ENCOUNTER → 2021-04-05 09:22 | Outpatient (BNVA) | payer MEDICARE, SELFPAY | PROVIDERS: PCP Internal Medicine; Visit Provider Internal Medicine | DX: J45.909 Unspecified asthma, uncomplicated (principal); J44.1 Chronic obstructive pulmonary disease with (acute) exacerbation; R59.0 Localized enlarged lymph nodes | CPT/HCPCS: 99212 ==

== ENCOUNTER 2021-05-11 16:36 | Outpatient (REF) | payer MEDICARE, SELFPAY ==
[2021-05-11 17:41] LABS: Estimated Average Glucose 97 mg/dL
[2021-05-11 17:45] LABS: Alanine Aminotransferase 14 U/L (0-31); Albumin Level 3.9 g/dL (3.5-5.0); Alkaline Phosphatase 81 U/L (39-117); Anion Gap 15 (12-20); Aspartate Amino Transferase 26 U/L (5-31); Bilirubin Total 0.7 mg/dL (0.0-1.0); Blood Urea Nitrogen 14 mg/dL (9-16); Calcium 10.1 mg/dL (8.4-10.2); Carbon Dioxide 27 mmol/L (22-29); Chloride 104 mmol/L (96-108); Estimated Glomerular Filt Rate 39; Glucose Random 94 mg/dL (60-115); Iron 54 mcg/dL (30-160); Potassium 3.9 mmol/L (3.3-5.1); Sodium 142 mmol/L (135-145)
[2021-05-12 14:58] LABS: Percent Iron Saturation 15 % (15-50); Total Iron Binding Capacity 363 mcg/dL (228-428); Unsaturated Iron Binding 309 ug/dL
== END 2021-05-11 16:37 | disposition home or self-care (01) ==
LOC: HO.LAB 16:36
PROVIDERS: PCP Internal Medicine; Visit Provider Internal Medicine Hypertension Specialist
DX: I12.9 Hypertensive chronic kidney disease with stage 1 through stage 4 chronic kidney disease, or unspecified chronic kidney disease (principal); N18.31 Chronic kidney disease, stage 3a
CPT/HCPCS: 36415; 80053; 83036; 83540

== ENCOUNTER 2021-05-31 04:37 | Emergency (ER) | payer MEDICARE, SELFPAY ==
--- NOTE | ~2021-05-31 | XR_ITS ---
EXAMINATION: XR CHEST CLINICAL INFORMATION: Dyspnea COMPARISON: 03/11/2021 TECHNIQUE: Frontal view of the chest was obtained. FINDINGS: Left lower lobe streaky opacity. Right lung clear. No large pleural effusion. No pneumothorax. Normal heart size and pulmonary vascularity. No acute or suspicious osseous abnormalities. XR/XR chest 1V IMPRESSION: Left lower lobe streaky opacity could represent subsegmental atelectasis or infiltrate.
--- NOTE | ~2021-05-31 | US_ITS ---
EXAMINATION: US VENOUS ULTRASOUND WITH DOPPLER LOWER EXTREMITY, LEFT CLINICAL INFORMATION: Pain left lower extremity. Assess for occult DVT. COMPARISON: None TECHNIQUE: Ultrasound of the deep veins is performed from the hip to the calf with compression sonography and color and pulse Doppler assessment. Spectral analysis with color-flow imaging is performed. FINDINGS: There is normal venous compression and respiratory variation and augmented flow. The visualized common femoral vein, superficial femoral vein, profunda femoral vein, popliteal vein, and the trifurcation region shows no evidence of deep venous thrombosis. No popliteal fossa cyst. US/US venous duplex LE LT IMPRESSION: No DVT demonstrated in the left lower extremity.
[2021-05-31 05:03] VITALS: BP 123/69; BP 190/100; PULSE 82; PULSE 89; RESP 22; TEMP 36.6; O2SAT 96; O2SAT 97; BMI 35.3
--- NOTE | 2021-05-31 05:42 | ECG_ITS ---
Test Reason : WEAKNESS Blood Pressure : / mmHG Vent. Rate : 088 BPM Atrial Rate : 088 BPM P-R Int : 166 ms QRS Dur : 078 ms QT Int : 360 ms P-R-T Axes : 068 021 056 degrees QTc Int : 435 ms Normal sinus rhythm Possible Inferior infarct (cited on or before 25-AUG-2019) Abnormal ECG When compared with ECG of 11-MAR-2021 08:12, Nonspecific T wave abnormality no longer evident in Anterior leads Referred By: Generic ED Physician Electronically Signed By:GLORIA PETER
[2021-05-31 06:07] LABS: MANUAL DIFF FLAG NO
[2021-05-31 06:08] LABS: Basophils Absolute Auto 0.1 X10*3/uL (0.0-0.2); Basophils Percent Auto 0.7 % (0-2); Eosinophils Absolute Auto 0.2 X10*3/uL (0.0-0.4); Eosinophils Percent Auto 1.9 % (0-4); Hematocrit 40.9 % (37-47); Hemoglobin 13.4 g/dl (12.0-16.0); Imm Gran Abs Auto 0.08 X10*3/uL (0.00-0.03); Imm Gran Pct Auto 0.8 % (0.0-0.4); Lymphocytes Absolute Auto 1.9 X10*3/uL (1.2-4.9); Lymphocytes Percent Auto 18.2 % (20-40); Mean Corpuscular HGB Conc 32.8 g/dl (31.0-35.0); Mean Corpuscular Volume 97.6 fL (80-98); Mean Platelet Volume 10.3 fL (9.4-12.3); Monocytes Percent Auto 9.7 % (2-11); Neutrophils Absolute Auto 7.1 X10*3/uL (2.0-8.3); Neutrophils Percent Auto 68.7 % (45-73); Platelet Count 254 X10*3/uL (160-400); Red Blood Count 4.19 X10*6/uL (4.20-5.50); Red Cell Distribution Width 13.2 % (11.0-16.0); White Blood Count 10.3 X10*3/uL (4.8-10.8)
--- NOTE | 2021-05-31 06:11 | PC.NURSE ---
20 gauge IV inserted into PT's left forearm. Labs draw. PT is complaining of 10/10 leg pain.
[2021-05-31 06:36] LABS: Anion Gap 14 (12-20); Blood Urea Nitrogen 16 mg/dL (9-16); Calcium 10.4 mg/dL (8.4-10.2); Carbon Dioxide 29 mmol/L (22-29); Chloride 101 mmol/L (96-108); Creatinine Clr Calc Pharmacy 31.1; Estimated Glomerular Filt Rate 39; Glucose Random 104 mg/dL (60-115); Potassium 3.9 mmol/L (3.3-5.1); Sodium 140 mmol/L (135-145)
[2021-05-31 06:41] LABS: B Type Natriuretic Peptide 79 pg/mL (<100); Troponin-I High Sensitivity 4.3 ng/L (<3.5-17.0)
[2021-05-31 06:49] VITALS: BP 161/74; PULSE 97; RESP 16; O2SAT 95
--- NOTE | 2021-05-31 07:30 | ED.GENADULT ---
HPI - General Adult General Chief complaint: General Medical Stated complaint: BILLOW LEG SWELLING,HIGH BP 190/100 Time Seen by Provider: 05/31/21 07:17 Source: patient Mode of arrival: ambulatory Limitations: no limitations History of Present Illness HPI narrative: Patient comes to the emergency room complaining of left lower extremity pain and swelling especially in the dorsum of the foot. Patient denies any trauma. The redness has been present for approximately 3 days. Patient states that the pain radiates from her foot all the way up to her groin area. Patient denies fever or chills. Related Data Home Medications Medication Instructions Recorded Confirmed alprazolam 0.25 mg tablet 0.25 mg PO BID 06/15/20 03/11/21 cholecalciferol (vitamin D3) 25 25 mcg PO DAILY 06/15/20 03/11/21 mcg (1,000 unit) capsule hydrochlorothiazide 25 mg tablet 25 mg PO DAILY 06/15/20 03/11/21 levothyroxine 50 mcg tablet 50 mcg PO DAILY 06/15/20 03/11/21 metoprolol succinate 50 mg 50 mg PO DAILY 06/15/20 03/11/21 tablet,extended release 24 hr omeprazole 40 mg capsule,delayed 40 mg PO DAILY 06/15/20 03/11/21 release oxycodone 5 mg tablet 5 mg PO QID PRN 06/15/20 03/11/21 tiotropium bromide 18 mcg capsule 18 mcg INHALATION DAILY 06/15/20 03/11/21 with inhalation device tramadol 50 mg tablet 50 mg PO BID PRN 06/15/20 03/11/21 albuterol sulfate 2.5 mg INHALATION Q4H PRN 03/11/21 03/11/21 aspirin 81 mg tablet,delayed 81 mg PO DAILY 03/11/21 03/11/21 release fluticasone 500 mcg-salmeterol 50 1 inh INHALATION BID 03/11/21 03/11/21 mcg/dose blistr powdr for inhalation (Advair Diskus) Previous Rx's Medication Instructions Recorded imipramine HCl 10 mg tablet 10 mg PO BEDTIME #90 tab 05/25/21 cephalexin 750 mg capsule (Keflex) 750 mg PO BID #14 cap 05/31/21 doxycycline hyclate 100 mg capsule 100 mg PO BID #14 cap 05/31/21 Allergies Allergy/AdvReac Type Severity Reaction Status Date / Time adhesive [ADHESIVE] Allergy Unknown UNKNOWN Verified 04/05/21 09:45 codeine [CODEINE] Allergy Unknown UNKNOWN, Verified 04/05/21 09:45 rash fish derived [FISH] Allergy Unknown HIVES Verified 04/05/21 09:45 gabapentin Allergy Unknown severe Verified 04/05/21 09:45 urinary incont. hydrocodone [Vicodin] Allergy Unknown Unknown Verified 04/05/21 09:45 Iodinated Contrast Media Allergy Unknown HIVES Verified 04/05/21 09:45 [IV Dye, Iodine Containing] nitrofurantoin Allergy Unknown HIVES Verified 04/05/21 09:45 [Nitrofurantoin] Penicillins [PENICILLINS] Allergy Unknown RASH Verified 04/05/21 09:45 Sulfa (Sulfonamide Allergy Unknown RASH Verified 04/05/21 09:45 Antibiotics) [SULFA (SULFONAMIDE ANTIBIOTICS)] valsartan [From DIOVAN] Allergy Unknown HIVES Verified 04/05/21 09:45 vancomycin [VANCOMYCIN] Allergy Unknown RASH Verified 04/05/21 09:45 ibuprofen [IBUPROFEN] AdvReac Unknown UNKNOWN Verified 04/05/21 09:45 Review of Systems Review of Systems: Constitutional : No Weight loss, No Fever, No Chills, No Night Sweats, No Fatigue, No Malaise ENT/Mouth : No Hearing loss, No Ear Pain, No Nasal Congestion, No Sinus Pain, No Hoarseness, No sore throat, No Rhinorrhea, No Swallowing Difficulty Eyes: No Eye Pain, No Swelling, No Redness, No Foreign Body, No Discharge, No Vision Changes Cardiovascular : No Chest Pain, No SOB, No Dyspnea on Exertion, No Orthopnea, no palpitations Respiratory : No Cough, No Sputum, No Wheezing, No Smoke Exposure, No Dyspnea Gastrointestinal : No Nausea, No Vomiting, No Diarrhea, No Constipation, No abdominal Pain, No Hematochezia, No Melena Genitourinary : no irregular bleeding, No Dysuria, No Urinary Frequency, No Hematuria, No Urinary Incontinence, No Urgency, No Flank Pain, No Urinary Flow Changes, No Hesitancy Musculoskeletal : No joint pain, No Myalgias, No Joint Swelling, complaining of lower extremity swelling and redness Skin : No Skin Lesions, No rash, redness in the dorsum of the left foot Neuro : No Weakness, No Numbness, No Paresthesias, No Loss of Consciousness, No Dizziness, No Headache Psych : No Anxiety/Panic, No Depression, No SI/HI/AH/VH, No Social Issues, Heme/Lymph: No Bruising, No Bleeding,No Lymphadenopathy Endocrine : No Polyuria, No Polydipsia, No Temperature Intolerance [facility] Past Medical History Medical History Asthma Breast cancer C. difficile colitis COPD (chronic obstructive pulmonary disease) Fusion of toes of right foot Lymphadenopathy, cervical Obesity Ovarian cancer Right humeral fracture Surgical History H/O colonoscopy H/O hysterectomy for benign disease H/O kyphoplasty H/O lymph node biopsy History of tonsillectomy and adenoidectomy History of total bilateral knee replacement Hx of cataract surgery Family History Family History Father No problems noted. Mother Breast cancer Sister Breast cancer Social History Social History Alcohol intake: never Patient Tobacco Use Status: Former Tobacco user Substance Use Type: Marijuana Advance Directives: No Physical Exam Vital Signs: Vital Signs: Last Vital Signs Temp 97.8 F 05/31/21 05:03 Pulse 97 05/31/21 06:49 Resp 16 05/31/21 06:49 BP 161/74 H 05/31/21 06:49 Pulse Ox 95 05/31/21 06:49 Body Mass Index 35.3 Const: Other: Appearance: Alert. Oriented X3. No acute distress. Eyes: Pupils equal, round and reactive to light. ENT: Pharynx normal. Neck: Normal inspection. Neck supple. No lymph nodes noted. No crepitus CVS: Normal heart rate and rhythm. Pulses normal. Normal S1 and S2 Respiratory: No respiratory distress. Breath sounds normal. No Wheezing. No rales Abdomen: Soft and nontender. No rigidity. No distention. good BS x4 Skin: Skin warm and dry. Erythema over the dorsum of the left foot, additional warmth, painful to palpation, mild swelling up to the ankle Extremities: Trace nonpitting edema No Lacerations. No Rash Neuro: Oriented X 3. No motor deficit. No sensory deficit. Moving all extermities. No slurred speech. Course Course Course Narrative: Patient's white blood cell count within normal limits, BNP normal, ultrasound negative. Patient's finding consistent with cellulitis. Medical Decision Making Lab Data Result diagrams: 05/31/21 05:48 05/31/21 05:48 Labs: Lab Results 05/31/21 05/31/21 05/31/21 Range/Units 05:48 05:48 05:48 WBC 10.3 (4.8-10.8) X10*3/uL RBC 4.19 L (4.20-5.50) X10*6/uL Hgb 13.4 (12.0-16.0) g/dl Hct 40.9 (37-47) % MCV 97.6 (80-98) fL MCH 32.0 (27.0-33.0) pg MCHC 32.8 (31.0-35.0) g/dl RDW 13.2 (11.0-16.0) % Plt Count 254 (160-400) X10*3/uL MPV 10.3 (9.4-12.3) fL Immature Gran % (Auto) 0.8 H (0.0-0.4) % Neut % (Auto) 68.7 (45-73) % Lymph % (Auto) 18.2 L (20-40) % [place] % (Auto) 9.7 (2-11) % Eos % (Auto) 1.9 (0-4) % Baso % (Auto) 0.7 (0-2) % Lymph # (Auto) 1.9 (1.2-4.9) X10*3/uL [place] # (Auto) 1.0 (0.1-1.2) X10*3/uL Eos # (Auto) 0.2 (0.0-0.4) X10*3/uL Baso # (Auto) 0.1 (0.0-0.2) X10*3/uL Abs Immat Gran (auto) 0.08 H (0.00-0.03) X10*3/uL Absolute Neuts (auto) 7.1 (2.0-8.3) X10*3/uL Absolute Nucleated RBC 0.000 (0.0-0.012) X10*3/uL Nucleated RBC % (auto) 0.0 (0.0-0.2) /100WBC Sodium 140 (135-145) mmol/L Potassium 3.9 (3.3-5.1) mmol/L Chloride 101 (96-108) mmol/L Carbon Dioxide 29 (22-29) mmol/L Anion Gap 14 (12-20) BUN 16 (9-16) mg/dL Creatinine 1.31 (0.5-1.4) mg/dL Estim Creat Clear Calc 31.1 Estimated GFR 39 Random Glucose 104 (60-115) mg/dL Calcium 10.4 H (8.4-10.2) mg/dL Troponin I High Sens 4.3 (<3.5-17.0) ng/L B-Natriuretic Peptide 79 (<100) pg/mL Urine Color Urine Appearance Urine pH (5.0-8.0) Ur Specific [place] (1.005-1.025) Urine Protein (NEG-TRACE) MG/DL Urine Glucose (UA) (NEG) MG/DL Urine Ketones (NEG) MG/DL Urine Blood (NEG) Urine Nitrite (NEG) Ur Leukocyte Esterase (NEG) 05/31/21 Range/Units 07:06 WBC (4.8-10.8) X10*3/uL RBC (4.20-5.50) X10*6/uL Hgb (12.0-16.0) g/dl Hct (37-47) % MCV (80-98) fL MCH (27.0-33.0) pg MCHC (31.0-35.0) g/dl RDW (11.0-16.0) % Plt Count (160-400) X10*3/uL MPV (9.4-12.3) fL Immature Gran % (Auto) (0.0-0.4) % Neut % (Auto) (45-73) % Lymph % (Auto) (20-40) % [place] % (Auto) (2-11) % Eos % (Auto) (0-4) % Baso % (Auto) (0-2) % Lymph # (Auto) (1.2-4.9) X10*3/uL [place] # (Auto) (0.1-1.2) X10*3/uL Eos # (Auto) (0.0-0.4) X10*3/uL Baso # (Auto) (0.0-0.2) X10*3/uL Abs Immat Gran (auto) (0.00-0.03) X10*3/uL Absolute Neuts (auto) (2.0-8.3) X10*3/uL Absolute Nucleated RBC (0.0-0.012) X10*3/uL Nucleated RBC % (auto) (0.0-0.2) /100WBC Sodium (135-145) mmol/L Potassium (3.3-5.1) mmol/L Chloride (96-108) mmol/L Carbon Dioxide (22-29) mmol/L Anion Gap (12-20) BUN (9-16) mg/dL Creatinine (0.5-1.4) mg/dL Estim Creat Clear Calc Estimated GFR Random Glucose (60-115) mg/dL Calcium (8.4-10.2) mg/dL Troponin I High Sens (<3.5-17.0) ng/L B-Natriuretic Peptide (<100) pg/mL Urine Color YELLOW Urine Appearance CLEAR Urine pH 6.0 (5.0-8.0) Ur Specific [place] 1.010 (1.005-1.025) Urine Protein NEG (NEG-TRACE) MG/DL Urine Glucose (UA) NEG (NEG) MG/DL Urine Ketones NEG (NEG) MG/DL Urine Blood NEG (NEG) Urine Nitrite NEG (NEG) Ur Leukocyte Esterase NEG (NEG) Imaging Data Lower extremity ultrasound: Radiologist's impression: TECHNIQUE: Ultrasound of the deep veins is performed from the hip to the calf with compression sonography and color and pulse Doppler assessment. Spectral analysis with color-flow imaging is performed. FINDINGS: There is normal venous compression and respiratory variation and augmented flow. The visualized common femoral vein, superficial femoral vein, profunda femoral vein, popliteal vein, and the trifurcation region shows no evidence of deep venous thrombosis. ? No popliteal fossa cyst. US/US venous duplex LE IMPRESSION: No DVT demonstrated in the left lower extremity. Discharge Plan Discharge Clinical Impression: Cellulitis Patient Disposition: Home, Self-Care Instructions: Cellulitis (ED) Additional Instructions: Please follow-up with your primary care physician tomorrow. If you have any worsening or new symptoms, please return to the emergency room or call 911 Prescriptions: New cephalexin [Keflex] 750 mg capsule 750 mg PO BID Qty: 14 RF: 0 doxycycline hyclate 100 mg capsule 100 mg PO BID Qty: 14 RF: 0 No Action imipramine HCl 10 mg tablet 10 mg PO BEDTIME Qty: 90 RF: 1 aspirin [Aspir-81] 81 mg Tablet,Delayed Release (Dr/Ec) 81 mg PO DAILY RF: 0 albuterol sulfate 2.5 mg /3 mL (0.083 %) Solution For Nebulization 2.5 mg INHALATION Q4H PRN (Reason: Wheezing) RF: 0 fluticasone propion-salmeterol [Advair Diskus] 500-50 mcg/dose Blister With Device 1 inh INHALATION BID RF: 0 oxycodone 5 mg tablet 5 mg PO QID PRN (Reason: Pain) RF: 0 Spiriva with HandiHaler 18 mcg capsule, w/inhalation device 18 mcg inhalation DAILY RF: 0 tramadol 50 mg tablet 50 mg PO BID PRN (Reason: Pain) RF: 0 alprazolam 0.25 mg tablet 0.25 mg PO BID RF: 0 metoprolol succinate 50 mg tablet extended release 24 hr 50 mg PO DAILY RF: 0 hydrochlorothiazide 25 mg tablet 25 mg PO DAILY RF: 0 levothyroxine 50 mcg tablet 50 mcg PO DAILY RF: 0 omeprazole 40 mg capsule,delayed release(DR/EC) 40 mg PO DAILY RF: 0 cholecalciferol (vitamin D3) 25 mcg (1,000 unit) capsule 25 mcg PO DAILY RF: 0
[2021-05-31 07:32] LABS: Appearance Urine CLEAR; Color Urine YELLOW; Glucose Urine UA NEG (NEG); Leukocyte Esterase Urine NEG (NEG); Nitrite Urine NEG (NEG); Urine Blood NEG (NEG); Urine Ketones NEG (NEG); Urine Protein NEG (NEG-TRACE)
[2021-05-31] MEDS: traMADoL HCL 50 MG TABLET PO (07:47)
[2021-05-31] MEDS: cephALEXin 500 MG CAPSULE PO (09:52)
== END 2021-05-31 11:09 | disposition home or self-care (01) ==
PROVIDERS: Emergency Provider Emergency Medicine; PCP Internal Medicine
DX: L03.116 Cellulitis of left lower limb (principal); R10.30 Lower abdominal pain, unspecified; R60.0 Localized edema; R06.02 Shortness of breath; Z79.899 Other long term (current) drug therapy
CPT/HCPCS: 36415; 71045; 80048; 81003; 83880; 84484; 85025; 93005; 93971; 99284

== ENCOUNTER → 2021-07-19 10:02 | Outpatient (BNVA) | payer MEDICARE, SELFPAY | PROVIDERS: PCP Internal Medicine; Referring Provider Internal Medicine; Visit Provider Nurse Practitioner | DX: J44.1 Chronic obstructive pulmonary disease with (acute) exacerbation (principal); J45.909 Unspecified asthma, uncomplicated; E66.9 Obesity, unspecified; R59.0 Localized enlarged lymph nodes | CPT/HCPCS: 99212 ==

== ENCOUNTER → 2021-09-16 10:16 | Outpatient (BNVA) | payer MEDICARE, SELFPAY | PROVIDERS: PCP Internal Medicine; Referring Provider Internal Medicine; Visit Provider Surgery | DX: Z85.3 Personal history of malignant neoplasm of breast (principal) | CPT/HCPCS: 99212 ==

== ENCOUNTER 2021-10-11 10:52 | Outpatient (REF) | payer MEDICARE, SELFPAY ==
--- NOTE | ~2021-10-11 | MM_ITS ---
EXAMINATION: MM SCREENING DIGITAL BREAST TOMOSYNTHESIS, BILATERAL CLINICAL INFORMATION: Left lumpectomy for breast cancer, 2015. Due for yearly. COMPARISON: Mammography: 10/09/2020, 03/28/2019, 02/22/2018 TECHNIQUE: Digital breast tomosynthesis is performed in both the craniocaudal and mediolateral oblique views along with computer-aided detection (CAD). Synthesized 2D images are generated from the tomosynthesis. FINDINGS: There are scattered areas of fibroglandular density (ACR BI-RADS breast composition Category b). Left breast post therapy changes are present with old scarring and mild reduced breast size. There is some interval dystrophic benign calcification in the scar. Neither breast shows interval mass or architectural abnormality or abnormal calcifications. Right breast unremarkable. The axilla are unremarkable. No significant changes. MM/MM tomosynthesis screening BI IMPRESSION: No significant changes from prior studies. ASSESSMENT: BI-RADS 2: Benign RECOMMENDATION: Routine annual mammography screening. This patient's information was entered into a reminder system with a target due date for their next mammogram.
== END 2021-10-11 10:53 | disposition home or self-care (01) ==
LOC: HO.MAMMO 10:52
PROVIDERS: Visit Provider Internal Medicine
DX: Z12.31 Encounter for screening mammogram for malignant neoplasm of breast (principal)
CPT/HCPCS: 77063; 77067

== ENCOUNTER → 2021-11-16 10:07 | Outpatient (BNVA) | payer MEDICARE, SELFPAY | PROVIDERS: PCP Internal Medicine; Visit Provider Internal Medicine | DX: J44.1 Chronic obstructive pulmonary disease with (acute) exacerbation (principal); J45.909 Unspecified asthma, uncomplicated; Z79.899 Other long term (current) drug therapy | CPT/HCPCS: 99212 ==

== ENCOUNTER 2021-11-26 09:36 | Outpatient (REF) | payer MEDICARE, SELFPAY ==
[2021-11-26 11:05] LABS: Hematocrit 44.8 % (37.0-47.0); Hemoglobin 14.1 g/dl (12.0-16.0); Mean Corpuscular HGB Conc 31.5 g/dl (31.0-35.0); Mean Corpuscular Hemoglobin 30.5 pg (27.0-33.0); Mean Platelet Volume 10.2 fL (9.4-12.3); Platelet Count 295 X10*3/uL (160-400); Red Blood Count 4.62 X10*6/uL (4.20-5.50); Red Cell Distribution Width 13.6 % (11.0-16.0); White Blood Count 8.6 X10*3/uL (4.8-10.8)
[2021-11-26 11:39] LABS: Anion Gap 13 (12-20); Blood Urea Nitrogen 22 mg/dL (9-16); Calcium 10.9 mg/dL (8.4-10.2); Carbon Dioxide 31 mmol/L (22-29); Chloride 101 mmol/L (96-108); Estimated Glomerular Filt Rate 39; Glucose Random 91 mg/dL (60-115); Potassium 4.1 mmol/L (3.3-5.1); Sodium 141 mmol/L (135-145)
[2021-11-29 16:41] LABS: Calcium (PTHI) 10.8 mg/dL (8.6-10.4); PTHI 18 pg/mL (14-64)
== END 2021-11-26 09:37 | disposition home or self-care (01) ==
LOC: HO.LAB 09:36
PROVIDERS: PCP Internal Medicine; Visit Provider Internal Medicine Hypertension Specialist
DX: I12.9 Hypertensive chronic kidney disease with stage 1 through stage 4 chronic kidney disease, or unspecified chronic kidney disease (principal); N18.9 Chronic kidney disease, unspecified
CPT/HCPCS: 36415; 80048; 83970; 85027

== ENCOUNTER 2021-12-16 13:25 | Outpatient (REF) | payer MEDICARE, SELFPAY ==
[2021-12-16 14:07] LABS: Appearance Urine CLEAR; Color Urine YELLOW; Glucose Urine UA NEG (NEG); Leukocyte Esterase Urine 1+ (NEG); Nitrite Urine NEG (NEG); PH 5.5 (5.0-8.0); Specific Gravity - Urine 1.025 (1.005-1.025); Urine Blood NEG (NEG); Urine Ketones NEG (NEG); Urine Protein TRACE MG/DL (NEG-TRACE)
[2021-12-16 14:33] LABS: RBC Urine 0 /HPF (0); Squamous Epithelial Cell Urine TRACE /LPF
[2021-12-16 14:34] LABS: Bacteria Urine 3+ /LPF
== END 2021-12-16 13:26 | disposition home or self-care (01) ==
LOC: HO.LAB 13:25
PROVIDERS: PCP Internal Medicine; Visit Provider Internal Medicine Hypertension Specialist
DX: N18.32 Chronic kidney disease, stage 3b (principal); N39.0 Urinary tract infection, site not specified
CPT/HCPCS: 81001; 87086; 87088

== ENCOUNTER 2022-01-13 09:42 | Outpatient (REF) | payer MEDICARE, SELFPAY ==
--- NOTE | ~2022-01-13 | US_ITS ---
EXAMINATION: US RETROPERITONEAL LIMITED (RENAL ONLY) CLINICAL INFORMATION: Chronic kidney disease. COMPARISON: CT abdomen pelvis 02/06/2019 TECHNIQUE: Real-time imaging of the kidneys. FINDINGS: RIGHT KIDNEY: 10.0 x 4.4 x 5.0 cm (SAG x AP x TRV). The kidney is normal in size, contour, and echogenicity. Renal cortical thickness is normal. No renal calculi or hydronephrosis. Benign-appearing renal cysts measuring up to 5.2 cm, no routine imaging follow-up recommended. LEFT KIDNEY: 10.6 x 4.4 x 4.1 cm (SAG x AP x TRV). The kidney is normal in size, contour, and echogenicity. Renal cortical thickness is normal. No renal calculi or hydronephrosis. Benign-appearing 1.5 cm renal cyst, no routine imaging follow-up recommended. US/US renal BI IMPRESSION: Benign-appearing bilateral renal cysts measuring up to 5.2 cm for which no routine follow up imaging is recommended. Otherwise unremarkable renal ultrasound.
== END 2022-01-13 09:43 | disposition home or self-care (01) ==
LOC: HO.US 09:42
PROVIDERS: Visit Provider Internal Medicine Hypertension Specialist
DX: N18.32 Chronic kidney disease, stage 3b (principal)
CPT/HCPCS: 76775

== ENCOUNTER → 2022-01-18 09:56 | Outpatient (BNVA) | payer MEDICARE, SELFPAY | PROVIDERS: PCP Internal Medicine; Referring Provider Internal Medicine; Visit Provider Nurse Practitioner | DX: K58.0 Irritable bowel syndrome with diarrhea (principal); K21.9 Gastro-esophageal reflux disease without esophagitis; K80.20 Calculus of gallbladder without cholecystitis without obstruction | CPT/HCPCS: 99212 ==

== ENCOUNTER 2022-01-31 10:44 | Outpatient (REF) | payer MEDICARE, SELFPAY ==
[2022-01-31 10:57] LABS: MANUAL DIFF FLAG NO
[2022-01-31 11:17] LABS: Basophils Absolute Auto 0.1 X10*3/uL (0.0-0.2); Basophils Percent Auto 0.9 % (0-2); Eosinophils Absolute Auto 0.2 X10*3/uL (0.0-0.4); Hematocrit 43.5 % (37.0-47.0); Imm Gran Abs Auto 0.04 X10*3/uL (0.00-0.03); Imm Gran Pct Auto 0.5 % (0.0-0.4); Lymphocytes Absolute Auto 1.9 X10*3/uL (1.2-4.9); Lymphocytes Percent Auto 24.3 % (20-40); Mean Corpuscular HGB Conc 32.2 g/dl (31.0-35.0); Mean Corpuscular Hemoglobin 30.6 pg (27.0-33.0); Mean Corpuscular Volume 95.2 fL (80.0-98.0); Mean Platelet Volume 10.6 fL (9.4-12.3); Monocytes Absolute Auto 0.7 X10*3/uL (0.1-1.2); Monocytes Percent Auto 8.8 % (2-11); Neutrophils Percent Auto 62.5 % (45-73); Platelet Count 132 X10*3/uL (160-400); Red Blood Count 4.57 X10*6/uL (4.20-5.50); Red Cell Distribution Width 13.3 % (11.0-16.0); White Blood Count 7.9 X10*3/uL (4.8-10.8)
[2022-01-31 11:30] LABS: Alanine Aminotransferase 16 U/L (0-31); Albumin Level 3.8 g/dL (3.5-5.0); Alkaline Phosphatase 86 U/L (39-117); Anion Gap 13 (12-20); Aspartate Amino Transferase 21 U/L (5-31); Bilirubin Total 0.8 mg/dL (0.0-1.0); Blood Urea Nitrogen 20 mg/dL (9-16); Calcium 10.3 mg/dL (8.4-10.2); Carbon Dioxide 29 mmol/L (22-29); Chloride 102 mmol/L (96-108); Cholesterol 170 mg/dL; Estimated Glomerular Filt Rate 39; Glucose Random 109 mg/dL (60-115); Potassium 4.1 mmol/L (3.3-5.1); Sodium 140 mmol/L (135-145); Total Protein 7.3 g/dL (6.5-8.0)
[2022-01-31 11:54] LABS: Free T4 (Free Thyroxine) 1.07 ng/dL (0.71-1.85); Thyroid Stimulating Hormone 1.09 uIU/mL (0.32-4.0); Vitamin D 25-OH Total 49.1 ng/mL (>30)
[2022-01-31 11:59] LABS: Appearance Urine HAZY; Color Urine YELLOW; Glucose Urine UA NEG (NEG); Leukocyte Esterase Urine 1+ (NEG); Nitrite Urine POS (NEG); Specific Gravity - Urine 1.025 (1.005-1.025); UACC Culture Trigger YES; Urine Blood NEG (NEG); Urine Ketones NEG (NEG); Urine Protein TRACE MG/DL (NEG-TRACE)
[2022-01-31 13:24] LABS: Bacteria Urine 4+ /LPF; Squamous Epithelial Cell Urine 3+ /LPF
== END 2022-01-31 10:45 | disposition home or self-care (01) ==
LOC: HO.LAB 10:44
PROVIDERS: PCP Internal Medicine; Visit Provider Internal Medicine
DX: J44.9 Chronic obstructive pulmonary disease, unspecified (principal); N18.9 Chronic kidney disease, unspecified; E03.9 Hypothyroidism, unspecified; R30.0 Dysuria; M81.0 Age-related osteoporosis without current pathological fracture
CPT/HCPCS: 36415; 80053; 81001; 81003; 82306; 82465; 84439; 84443; 85025; 87086; 87088

== ENCOUNTER → 2022-03-17 10:10 | Outpatient (BNVA) | payer MEDICARE, SELFPAY | PROVIDERS: PCP Internal Medicine; Visit Provider Surgery | DX: Z85.3 Personal history of malignant neoplasm of breast (principal); Z92.3 Personal history of irradiation | CPT/HCPCS: 99212 ==

== ENCOUNTER → 2022-03-31 11:28 | Outpatient (BNVA) | payer MEDICARE, SELFPAY | PROVIDERS: PCP Internal Medicine; Visit Provider Internal Medicine | DX: J44.1 Chronic obstructive pulmonary disease with (acute) exacerbation (principal); J45.909 Unspecified asthma, uncomplicated; E66.9 Obesity, unspecified; Z68.37 Body mass index [BMI] 37.0-37.9, adult | CPT/HCPCS: 99212 ==

== ENCOUNTER 2022-05-09 10:54 | Outpatient (REF) | payer MEDICARE, SELFPAY ==
[2022-05-09 13:34] LABS: MANUAL DIFF FLAG NO
[2022-05-09 13:36] LABS: Basophils Absolute Auto 0.1 X10*3/uL (0.0-0.2); Basophils Percent Auto 1.2 % (0-2); Eosinophils Absolute Auto 0.4 X10*3/uL (0.0-0.4); Eosinophils Percent Auto 5.4 % (0-4); Hematocrit 42.8 % (37.0-47.0); Hemoglobin 13.9 g/dl (12.0-16.0); Imm Gran Abs Auto 0.04 X10*3/uL (0.00-0.03); Imm Gran Pct Auto 0.5 % (0.0-0.4); Lymphocytes Absolute Auto 2.2 X10*3/uL (1.2-4.9); Lymphocytes Percent Auto 28.5 % (20-40); Mean Corpuscular HGB Conc 32.5 g/dl (31.0-35.0); Mean Corpuscular Hemoglobin 31.9 pg (27.0-33.0); Mean Corpuscular Volume 98.2 fL (80.0-98.0); Mean Platelet Volume 10.8 fL (9.4-12.3); Monocytes Absolute Auto 0.8 X10*3/uL (0.1-1.2); Monocytes Percent Auto 10.8 % (2-11); Neutrophils Absolute Auto 4.2 x10*3/uL (2.0-8.3); Neutrophils Percent Auto 53.6 % (45-73); Platelet Count 278 X10*3/uL (160-400); Red Blood Count 4.36 X10*6/uL (4.20-5.50); Red Cell Distribution Width 13.4 % (11.0-16.0); White Blood Count 7.8 X10*3/uL (4.8-10.8)
[2022-05-09 13:51] LABS: Alanine Aminotransferase 13 U/L (0-31); Albumin Level 3.9 g/dL (3.5-5.0); Alkaline Phosphatase 83 U/L (39-117); Anion Gap 16 (12-20); Aspartate Amino Transferase 22 U/L (5-31); Bilirubin Total 0.8 mg/dL (0.0-1.0); Blood Urea Nitrogen 24 mg/dL (9-16); Carbon Dioxide 28 mmol/L (22-29); Chloride 99 mmol/L (96-108); Estimated Glomerular Filt Rate 33; Glucose Random 74 mg/dL (60-115); Magnesium 1.7 mg/dL (1.6-2.6); Potassium 4.3 mmol/L (3.3-5.1); Sodium 139 mmol/L (135-145); Total Protein 7.6 g/dL (6.5-8.0)
[2022-05-09 14:12] LABS: Free T4 (Free Thyroxine) 0.98 ng/dL (0.71-1.85); Thyroid Stimulating Hormone 4.67 uIU/mL (0.32-4.0)
== END 2022-05-09 10:55 | disposition home or self-care (01) ==
LOC: HO.10HDL 10:54
PROVIDERS: Visit Provider Internal Medicine
DX: I12.9 Hypertensive chronic kidney disease with stage 1 through stage 4 chronic kidney disease, or unspecified chronic kidney disease (principal); J44.9 Chronic obstructive pulmonary disease, unspecified; N18.9 Chronic kidney disease, unspecified; E03.9 Hypothyroidism, unspecified; R25.2 Cramp and spasm
CPT/HCPCS: 36415; 80053; 83735; 84439; 84443; 85025

== ENCOUNTER → 2022-07-28 08:10 | Outpatient (BNVA) | payer MEDICARE, SELFPAY | PROVIDERS: PCP Internal Medicine; Visit Provider Nurse Practitioner | DX: K58.0 Irritable bowel syndrome with diarrhea (principal); K21.9 Gastro-esophageal reflux disease without esophagitis; K80.20 Calculus of gallbladder without cholecystitis without obstruction | CPT/HCPCS: 99212 ==

== ENCOUNTER 2022-08-15 09:58 | Outpatient (REF) | payer MEDICARE, SELFPAY ==
[2022-08-15 11:16] LABS: MANUAL DIFF FLAG NO
[2022-08-15 11:24] LABS: Basophils Absolute Auto 0.1 X10*3/uL (0.0-0.2); Basophils Percent Auto 0.9 % (0-2); Eosinophils Absolute Auto 0.4 X10*3/uL (0.0-0.4); Eosinophils Percent Auto 4.6 % (0-4); Hematocrit 43.1 % (37.0-47.0); Hemoglobin 13.8 g/dl (12.0-16.0); Imm Gran Abs Auto 0.03 X10*3/uL (0.00-0.03); Imm Gran Pct Auto 0.4 % (0.0-0.4); Lymphocytes Absolute Auto 2.1 X10*3/uL (1.2-4.9); Lymphocytes Percent Auto 25.2 % (20-40); Mean Corpuscular Hemoglobin 31.9 pg (27.0-33.0); Mean Corpuscular Volume 99.5 fL (80.0-98.0); Mean Platelet Volume 10.7 fL (9.4-12.3); Monocytes Absolute Auto 0.7 X10*3/uL (0.1-1.2); Neutrophils Percent Auto 60.9 % (45-73); Platelet Count 245 X10*3/uL (160-400); Red Blood Count 4.33 X10*6/uL (4.20-5.50); White Blood Count 8.2 X10*3/uL (4.8-10.8)
[2022-08-15 13:07] LABS: Alanine Aminotransferase 14 U/L (0-31); Albumin Level 3.8 g/dL (3.5-5.0); Alkaline Phosphatase 96 U/L (39-117); Anion Gap 13 (12-20); Aspartate Amino Transferase 19 U/L (5-31); Bilirubin Total 0.7 mg/dL (0.0-1.0); Blood Urea Nitrogen 25 mg/dL (9-16); Calcium 10.3 mg/dL (8.4-10.2); Carbon Dioxide 28 mmol/L (22-29); Chloride 101 mmol/L (96-108); Estimated Glomerular Filt Rate 41; Glucose Random 95 mg/dL (60-115); Potassium 4.1 mmol/L (3.3-5.1); Sodium 138 mmol/L (135-145); Thyroid Stimulating Hormone 5.38 uIU/mL (0.32-4.0); Total Protein 7.3 g/dL (6.5-8.0)
== END 2022-08-15 09:59 | disposition home or self-care (01) ==
LOC: HO.10HDL 09:58
PROVIDERS: Visit Provider Internal Medicine
DX: J44.9 Chronic obstructive pulmonary disease, unspecified (principal); I12.9 Hypertensive chronic kidney disease with stage 1 through stage 4 chronic kidney disease, or unspecified chronic kidney disease; N18.9 Chronic kidney disease, unspecified; E03.9 Hypothyroidism, unspecified
CPT/HCPCS: 36415; 80053; 84439; 84443; 85025

== ENCOUNTER → 2022-09-15 10:40 | Outpatient (BNVA) | payer MEDICARE, SELFPAY | PROVIDERS: PCP Internal Medicine; Visit Provider Internal Medicine | DX: J44.9 Chronic obstructive pulmonary disease, unspecified (principal) | CPT/HCPCS: 99212 ==

== ENCOUNTER → 2022-10-06 09:54 | Outpatient (BNVA) | payer MEDICARE, SELFPAY | PROVIDERS: PCP Internal Medicine; Visit Provider Surgery | DX: R59.1 Generalized enlarged lymph nodes (principal); C50.412 Malignant neoplasm of upper-outer quadrant of left female breast; Z17.0 Estrogen receptor positive status [ER+]; Z79.810 Long term (current) use of selective estrogen receptor modulators (SERMs) | CPT/HCPCS: 99212 ==

== ENCOUNTER 2022-10-19 07:56 | Outpatient (REF) | payer MEDICARE, SELFPAY ==
--- NOTE | ~2022-10-19 | MM_ITS ---
EXAMINATION: MM DIAGNOSTIC DIGITAL BREAST TOMOSYNTHESIS, BILATERAL US DIAGNOSTIC ULTRASOUND BREAST, RIGHT CLINICAL INFORMATION: Palpable nodule noted by patient right axilla. History left lumpectomy for breast cancer, 2015. Due for yearly. COMPARISON: Mammography: 10/11/2021, 10/09/2020, 03/28/2019 TECHNIQUE: Digital breast tomosynthesis is performed in both the craniocaudal and mediolateral oblique views along with computer-aided detection (CAD). Synthesized 2D images are generated from the tomosynthesis. Additional left MLO view is provided. Ultrasound right breast/axilla is targeted to the area of patient's clinical concern. Patient is able to point to the area time of imaging. Grayscale imaging and color Doppler are performed without and with harmonics. FINDINGS: There are scattered areas of fibroglandular density (ACR BI-RADS breast composition Category b). There are post therapy changes on the left with mild reduced breast size and stable scarring. Neither breast shows interval mass or architectural abnormality or abnormal calcifications. No visible axillary adenopathy. The skin contours are smooth. No significant changes. Ultrasound demonstrates no cystic or solid mass, architectural abnormality, or lymphadenopathy. There are a few incidental axillary nodes seen with normal gian architecture. No skin thickening or edema. The right axillary vein is compressible and shows intraluminal flow on color Doppler. Results are discussed with the patient at time of visit. MM/MM tomosynthesis diagnostic BI IMPRESSION: 1. No mammographic evidence of malignancy or inflammatory changes. 2. Unremarkable right breast/axillary ultrasound. ASSESSMENT: BI-RADS 2: Benign RECOMMENDATION: 1. Patient should be managed based on the clinical impression. 2. Otherwise, routine annual screening mammography. This patient's information was entered into a reminder system with a target due date for their next mammogram.
== END 2022-10-19 07:57 | disposition home or self-care (01) ==
LOC: HO.MAMMO 07:56
PROVIDERS: Visit Provider Internal Medicine
DX: N63.31 Unspecified lump in axillary tail of the right breast (principal); R59.1 Generalized enlarged lymph nodes; Z85.3 Personal history of malignant neoplasm of breast; Z98.890 Other specified postprocedural states
CPT/HCPCS: 76642; 77062; 77066

== ENCOUNTER → 2023-01-12 09:54 | Outpatient (BNVA) | payer MEDICARE, SELFPAY | PROVIDERS: PCP Internal Medicine; Visit Provider Internal Medicine | DX: J44.9 Chronic obstructive pulmonary disease, unspecified (principal); G89.29 Other chronic pain; M54.50 Low back pain, unspecified; M25.562 Pain in left knee; M25.561 Pain in right knee; E66.9 Obesity, unspecified; Z68.39 Body mass index [BMI] 39.0-39.9, adult; Z96.653 Presence of artificial knee joint, bilateral; Z79.82 Long term (current) use of aspirin; Z79.891 Long term (current) use of opiate analgesic; Z79.899 Other long term (current) drug therapy | CPT/HCPCS: 99212 ==

== ENCOUNTER 2023-01-26 11:17 | Outpatient (REF) | payer MEDICARE, SELFPAY ==
[2023-01-26 14:31] LABS: Creatinine Urine 101.01 mg/dL; Microalbum/Creatinine Ratio Ur 112.8 ug/mg cr
== END 2023-01-26 11:18 | disposition home or self-care (01) ==
LOC: HO.10HDL 11:17
PROVIDERS: Visit Provider Internal Medicine
DX: J44.9 Chronic obstructive pulmonary disease, unspecified (principal); E78.00 Pure hypercholesterolemia, unspecified; N18.9 Chronic kidney disease, unspecified; E03.9 Hypothyroidism, unspecified; M81.0 Age-related osteoporosis without current pathological fracture
CPT/HCPCS: 82043

== ENCOUNTER 2023-01-28 08:29 | Outpatient (REF) | payer MEDICARE, SELFPAY ==
[2023-01-28 09:00] LABS: MANUAL DIFF FLAG NO
[2023-01-28 10:33] LABS: Basophils Absolute Auto 0.1 X10*3/uL (0.0-0.2); Basophils Percent Auto 0.9 % (0-2); Eosinophils Absolute Auto 0.4 X10*3/uL (0.0-0.4); Eosinophils Percent Auto 4.1 % (0-4); Hematocrit 43.5 % (37.0-47.0); Hemoglobin 13.9 g/dl (12.0-16.0); Imm Gran Abs Auto 0.05 X10*3/uL (0.00-0.03); Imm Gran Pct Auto 0.6 % (0.0-0.4); Lymphocytes Absolute Auto 2.2 X10*3/uL (1.2-4.9); Lymphocytes Percent Auto 25.5 % (20-40); Mean Corpuscular Hemoglobin 31.3 pg (27.0-33.0); Mean Platelet Volume 10.5 fL (9.4-12.3); Monocytes Absolute Auto 0.8 X10*3/uL (0.1-1.2); Monocytes Percent Auto 9.1 % (2-11); Neutrophils Absolute Auto 5.2 x10*3/uL (2.0-8.3); Neutrophils Percent Auto 59.8 % (45-73); Platelet Count 269 X10*3/uL (160-400); Red Blood Count 4.44 X10*6/uL (4.20-5.50); Red Cell Distribution Width 13.3 % (11.0-16.0); White Blood Count 8.7 X10*3/uL (4.8-10.8)
[2023-01-28 11:31] LABS: Alanine Aminotransferase 15 U/L (0-31); Albumin Level 3.8 g/dL (3.5-5.0); Alkaline Phosphatase 88 U/L (39-117); Anion Gap 16 (12-20); Aspartate Amino Transferase 18 U/L (5-31); Bilirubin Total 0.9 mg/dL (0.0-1.0); Blood Urea Nitrogen 23 mg/dL (9-16); Calcium 10.1 mg/dL (8.4-10.2); Carbon Dioxide 28 mmol/L (22-29); Chloride 103 mmol/L (96-108); Cholesterol 167 mg/dL; Estimated Glomerular Filt Rate 34; Glucose Fasting 88 mg/dL (60-99); HDL Cholesterol 33 mg/dL; LDL Cholesterol Calculated 110 mg/dl; Potassium 4.4 mmol/L (3.3-5.1); Sodium 143 mmol/L (135-145); Triglycerides 123 mg/dL
[2023-01-28 11:40] LABS: Free T4 (Free Thyroxine) 0.98 ng/dL (0.71-1.85); Thyroid Stimulating Hormone 2.94 uIU/mL (0.32-4.0)
== END 2023-01-28 08:30 | disposition home or self-care (01) ==
LOC: HO.LAB 08:29
PROVIDERS: PCP Internal Medicine; Visit Provider Internal Medicine
DX: J44.9 Chronic obstructive pulmonary disease, unspecified (principal); N18.9 Chronic kidney disease, unspecified; E78.00 Pure hypercholesterolemia, unspecified; M10.9 Gout, unspecified; M81.0 Age-related osteoporosis without current pathological fracture; E03.9 Hypothyroidism, unspecified
CPT/HCPCS: 36415; 80053; 80061; 82306; 84439; 84443; 85025

== ENCOUNTER 2023-02-07 16:42 | Outpatient (REF) | payer MEDICARE, SELFPAY ==
[2023-02-07 19:07] LABS: Anion Gap 13 (12-20); Blood Urea Nitrogen 20 mg/dL (9-16); Carbon Dioxide 29 mmol/L (22-29); Chloride 102 mmol/L (96-108); Estimated Glomerular Filt Rate 39; Glucose Random 84 mg/dL (60-115); Potassium 4.8 mmol/L (3.3-5.1); Sodium 139 mmol/L (135-145)
== END 2023-02-07 16:43 | disposition home or self-care (01) ==
LOC: HO.LAB 16:42
PROVIDERS: PCP Internal Medicine; Visit Provider Internal Medicine Hypertension Specialist
DX: N18.31 Chronic kidney disease, stage 3a (principal)
CPT/HCPCS: 36415; 80048

== ENCOUNTER 2023-02-14 05:28 | Emergency (ER) | payer MEDICARE, SELFPAY ==
--- NOTE | 2023-02-14 | ECG_ITS ---
Test Reason : SOB Blood Pressure : / mmHG Vent. Rate : 069 BPM Atrial Rate : 069 BPM P-R Int : 164 ms QRS Dur : 082 ms QT Int : 416 ms P-R-T Axes : 069 027 065 degrees QTc Int : 445 ms Normal sinus rhythm Cannot rule out Inferior infarct (cited on or before 25-AUG-2019) Abnormal ECG When compared with ECG of 31-MAY-2021 05:52, No significant change was found Referred By: Omero Bey Electronically Signed By:JOSE M GONZALEZ MD
--- NOTE | ~2023-02-14 | XR_ITS ---
EXAMINATION: XR LUMBOSACRAL SPINE CLINICAL INFORMATION: Low back pain COMPARISON: 09/19/2019 TECHNIQUE: Three views of the lumbosacral spine. FINDINGS: There is grade 1 anterolisthesis of L3 on L4 and L4 on L5 which appears similar to prior. Redemonstrated vertebral body cement in L3. Moderate compression deformity of L4 appears similar to prior. Remaining vertebral body heights are relatively well-preserved. No acute fracture is seen. Moderate disc space narrowing at L5-S1. Mild disc space narrowing at the remaining intervertebral levels. There is extensive lower lumbar facet arthropathy. Sacroiliac joints appear intact. There is extensive calcification along the aorta. XR/XR lumbar spine 2-3V IMPRESSION: No acute findings identified. Chronic/degenerative changes as described above.
[2023-02-14 05:34] VITALS: BP 119/96; PULSE 77; RESP 16; TEMP 36.4; O2SAT 95; BMI 36.4
[2023-02-14 05:46] VITALS: BP 119/96; PULSE 77; RESP 16; TEMP 36.4; O2SAT 95
--- NOTE | 2023-02-14 05:48 | PC.NURSE ---
Pt presents to ER complaining of pain in the low back, right hip, knee, shoulder starting Monday. Pt also reports N/V/D on Monday that has resolved at this time. Pt takes 5mg oxycodone and 50 mg tramadol for pain with brief relief. Last dose was oxycodone at 1:30 AM today. Pt is A&Ox4, GCS 15, with warm, dry skin. Pt states she has some numbness in her toes, but the numbness is normally there. Pt normally walks with a cane. Pt has increased trouble breathing on exertion since the pain has began.
--- NOTE | 2023-02-14 05:55 | ED.GENADULT ---
HPI - General Adult General Chief complaint: Back Pain/Injury Stated complaint: Shoulder/Back/Hip/Leg pain -No Inj Time Seen by Provider: 02/14/23 05:54 Source: patient Mode of arrival: ambulatory Limitations: no limitations History of Present Illness HPI narrative: Patient chronic low back pain secondary to lumbar spinal stenosis on oxycodone and tramadol comes here for increased pain for last 3 days in spite of taking her medication no recent trauma or fall no bladder or bowel incontinence no loss of sensation to the back Related Data Home Medications Medication Instructions Recorded Confirmed alprazolam 0.25 mg tablet 0.25 mg PO BID 06/15/20 11/28/22 cholecalciferol (vitamin D3) 25 25 mcg PO DAILY 06/15/20 11/28/22 mcg (1,000 unit) capsule hydrochlorothiazide 25 mg tablet 25 mg PO DAILY 06/15/20 11/28/22 levothyroxine 50 mcg tablet 50 mcg PO DAILY 06/15/20 11/28/22 metoprolol succinate 50 mg 50 mg PO DAILY 06/15/20 11/28/22 tablet,extended release 24 hr tiotropium bromide 18 mcg capsule 18 mcg inhalation DAILY 06/15/20 11/28/22 with inhalation device aspirin 81 mg tablet,delayed 81 mg PO DAILY 03/11/21 11/28/22 release oxycodone 5 mg tablet 5 mg PO QID PRN Pain 11/16/21 11/28/22 tramadol 50 mg tablet 50 mg PO BID PRN Pain 11/16/21 11/28/22 Previous Rx's Medication Instructions Recorded fluticasone 250 mcg-salmeterol 50 1 inh inhalation BID sob AND 03/31/22 mcg/dose blistr powdr for wheezing 30 days #60 ea inhalation (Advair Diskus) Ventolin HFA 90 mcg/actuation 2 puff inhalation Q6H PRN 06/20/22 aerosol inhaler (albuterol sulfate) shortness of breath or wheezing #18 grams albuterol sulfate 2.5 mg/3 mL 4.1667 mg (5 mL) inhalation Q4H 07/26/22 (0.083 %) solution for nebulization PRN for wheezing #150 mL imipramine HCl 10 mg tablet 20 mg PO DAILY #60 tabs 07/28/22 omeprazole 40 mg capsule,delayed 40 mg PO DAILY #30 caps 07/28/22 release sucralfate 1 gram tablet 1 g PO BID #60 tabs 07/28/22 Allergies Allergy/AdvReac Type Severity Reaction Status Date / Time adhesive [ADHESIVE] Allergy Unknown UNKNOWN Verified 01/12/23 11:10 codeine [CODEINE] Allergy Unknown UNKNOWN, Verified 01/12/23 11:10 rash fish derived [FISH] Allergy Unknown HIVES Verified 01/12/23 11:10 gabapentin Allergy Unknown severe Verified 01/12/23 11:10 urinary incont. hydrocodone [Vicodin] Allergy Unknown Unknown Verified 01/12/23 11:10 Iodinated Contrast Media Allergy Unknown HIVES Verified 01/12/23 11:10 [IV Dye, Iodine Containing] nitrofurantoin Allergy Unknown HIVES Verified 01/12/23 11:10 [Nitrofurantoin] Penicillins [PENICILLINS] Allergy Unknown RASH Verified 01/12/23 11:10 Sulfa (Sulfonamide Allergy Unknown RASH Verified 01/12/23 11:10 Antibiotics) [SULFA (SULFONAMIDE ANTIBIOTICS)] valsartan [From DIOVAN] Allergy Unknown HIVES Verified 01/12/23 11:10 vancomycin [VANCOMYCIN] Allergy Unknown RASH Verified 01/12/23 11:10 ibuprofen [IBUPROFEN] AdvReac Unknown UNKNOWN Verified 01/12/23 11:10 Review of Systems Review of Systems: Yes all other systems are reviewed and are negative PMFSH Past Medical History Medical History Asthma Asthma-COPD overlap syndrome Breast cancer C. difficile colitis COPD (chronic obstructive pulmonary disease) Fusion of toes of right foot Gout attack Lymphadenopathy, cervical Obesity Ovarian cancer Right humeral fracture Surgical History H/O colonoscopy H/O hysterectomy for benign disease H/O kyphoplasty H/O lymph node biopsy History of tonsillectomy and adenoidectomy History of total bilateral knee replacement Hx of cataract surgery Family History Family History Father No problems noted. Mother Breast cancer Sister Breast cancer Social History Social History Household Members: Children Housing: House Alcohol intake: never Patient Tobacco Use Status: Former Tobacco user Smoked in Last 30 Days: No Use of substances other than those prescribed or required for medical reasons: No Substance Use Type: Marijuana Advance Directives: No Advance Directives Information Provided: Yes service: No Current occupational status: retired Physical Exam ED Vital Signs: Vital Signs - 24 hr 02/14/23 05:34 02/14/23 05:46 02/14/23 06:23 Temperature 97.5 F 97.5 F Pulse Rate 77 77 77 Respiratory Rate 16 16 16 Blood Pressure 119/96 H 119/96 H Pulse Oximetry 95 95 Oxygen Delivery Method Room Air Room Air BMI result Body Mass Index 36.4 Appearance: Alert. Oriented X3. In moderate distress. Eyes: PERRLA, No Nystagmus ENT: Pharynx normal. Oral Mucosa moist Neck: Normal inspection. Neck supple. CVS: Normal heart rate and rhythm. Pulses normal. Respiratory: No respiratory distress. Bilateral prolonged expiration with wheezing, Abdomen: Soft and nontender. Bowel sounds are present, no mass palpable, no CVA tenderness back diffuse tenderness lower back SLR negative bilaterally sacral sensation intact Skin: Skin warm and dry. Normal skin color. Normal skin turgor. Extremities: No lower extremity edema. No calf tenderness Neuro: Oriented X 3. No motor deficit. Medications Administered Discontinued Medications Generic Name Dose Route Start Last Admin Trade Name Freq PRN Reason Stop Dose Admin Albuterol Sulfate 2.5 mg/ 0 mg 02/14/23 06:02 02/14/23 06:19 Albuterol/Ipratropium 3 ml INHALE 02/14/23 06:03 1 each ONCE ONE Administration Dexamethasone 10 mg 02/14/23 06:03 02/14/23 06:18 Dexamethasone 2 Mg Tablet PO 02/14/23 06:04 10 mg ONCE ONE Administration Morphine Sulfate 4 mg 02/14/23 06:02 02/14/23 06:18 Morphine Sulfate 4 Mg/Ml Cartridge IM 02/14/23 06:03 4 mg ONCE ONE Administration Protocol Medical Decision Making Independent Interpretation I performed an independent interpretation of an: EKG Interpretation: Normal sinus rhythm with heart rate 69 beats per minute normal interval normal axis no acute ST changes no acute ischemia Discharge Plan Discharge Clinical Impression: Lumbar spinal stenosis, Compression fracture of lumbar vertebra Patient Disposition: Home, Self-Care Instructions: Vertebral Compression Fracture (ED), Lumbar Spinal Stenosis (ED) Additional Instructions: Continue pain medication and follow with radiologist for possible vertebroplasty Prescriptions: No Action albuterol sulfate [Ventolin HFA] 90 mcg/actuation HFA aerosol inhaler 2 puff inhalation Q6H PRN (Reason: shortness of breath or wheezing) Qty: 18 3RF albuterol sulfate 2.5 mg /3 mL (0.083 %) solution for nebulization 4.1667 mg inhalation Q4H PRN (Reason: for wheezing) Qty: 150 0RF aspirin [Aspir-81] 81 mg Tablet,Delayed Release (Dr/Ec) 81 mg PO DAILY Spiriva with HandiHaler 18 mcg capsule, w/inhalation device 18 mcg inhalation DAILY alprazolam 0.25 mg tablet 0.25 mg PO BID metoprolol succinate 50 mg tablet extended release 24 hr 50 mg PO DAILY hydrochlorothiazide 25 mg tablet 25 mg PO DAILY levothyroxine 50 mcg tablet 50 mcg PO DAILY cholecalciferol (vitamin D3) 25 mcg (1,000 unit) capsule 25 mcg PO DAILY oxycodone 5 mg tablet 5 mg PO QID PRN (Reason: Pain) tramadol 50 mg tablet 50 mg PO BID PRN (Reason: Pain) imipramine HCl 10 mg tablet 20 mg PO DAILY Qty: 60 6RF sucralfate 1 gram tablet 1 g PO BID Qty: 60 6RF omeprazole 40 mg capsule,delayed release(DR/EC) 40 mg PO DAILY Qty: 30 6RF fluticasone propion-salmeterol [Advair Diskus] 250-50 mcg/dose blister with device 1 inh inhalation BID MDD SOB AND WJEEZING 30 Days Qty: 60 5RF Referrals: Kanu Aldridge MD [Physician] - 1 week (Lumbar compression fracture for vertebroplasty)
[2023-02-14] MEDS: Morphine Sulfate 4 MG/ML CARTRIDGE IM (06:18)
[2023-02-14] MEDS: dexAMETHasone 2 MG TABLET 10 MG PO (06:18)
[2023-02-14 06:23] VITALS: PULSE 77; RESP 16; O2SAT 95
== END 2023-02-14 06:58 | disposition home or self-care (01) ==
PROVIDERS: Emergency Provider Internal Medicine; PCP Internal Medicine
DX: M48.061 Spinal stenosis, lumbar region without neurogenic claudication (principal); M48.56XA Collapsed vertebra, not elsewhere classified, lumbar region, initial encounter for fracture; Z87.891 Personal history of nicotine dependence; Z79.899 Other long term (current) drug therapy
CPT/HCPCS: 72100; 93005; 94640; 99284; 99285; J2270; J8540

== ENCOUNTER 2023-02-16 13:49 | Emergency (ER) | payer MEDICARE, SELFPAY ==
[2023-02-16 13:57] VITALS: BP 152/90; PULSE 80; O2SAT 99
[2023-02-16 14:00] VITALS: BP 189/84; PULSE 59; RESP 16; TEMP 36.8; O2SAT 98
[2023-02-16 14:11] VITALS: BP 189/84; PULSE 59; RESP 20; TEMP 36.9; O2SAT 96; BMI 38.2
--- NOTE | 2023-02-16 14:39 | ED_ITS ---
HPI - General Adult General Chief complaint: General Medical Stated complaint: FLU LIKE SYMPTOMS PER EMS Time Seen by Provider: 02/16/23 14:39 History of Present Illness HPI narrative: Patient complains of diarrhea with 15+ episodes of very watery loose stool every day for past week, she has diarrhea after everything she eats, she is able to drink she has no nausea or vomiting no abdominal pain She has no dizziness no confusion she denies any dysuria Related Data Home Medications Medication Instructions Recorded Confirmed alprazolam 0.25 mg tablet 0.25 mg PO BID 06/15/20 11/28/22 cholecalciferol (vitamin D3) 25 25 mcg PO DAILY 06/15/20 11/28/22 mcg (1,000 unit) capsule hydrochlorothiazide 25 mg tablet 25 mg PO DAILY 06/15/20 11/28/22 levothyroxine 50 mcg tablet 50 mcg PO DAILY 06/15/20 11/28/22 metoprolol succinate 50 mg 50 mg PO DAILY 06/15/20 11/28/22 tablet,extended release 24 hr tiotropium bromide 18 mcg capsule 18 mcg inhalation DAILY 06/15/20 11/28/22 with inhalation device aspirin 81 mg tablet,delayed 81 mg PO DAILY 03/11/21 11/28/22 release oxycodone 5 mg tablet 5 mg PO QID PRN Pain 11/16/21 11/28/22 tramadol 50 mg tablet 50 mg PO BID PRN Pain 11/16/21 11/28/22 Previous Rx's Medication Instructions Recorded fluticasone 250 mcg-salmeterol 50 1 inh inhalation BID sob AND 03/31/22 mcg/dose blistr powdr for wheezing 30 days #60 ea inhalation (Advair Diskus) Ventolin HFA 90 mcg/actuation 2 puff inhalation Q6H PRN 06/20/22 aerosol inhaler (albuterol sulfate) shortness of breath or wheezing #18 grams albuterol sulfate 2.5 mg/3 mL 4.1667 mg (5 mL) inhalation Q4H 07/26/22 (0.083 %) solution for nebulization PRN for wheezing #150 mL imipramine HCl 10 mg tablet 20 mg PO DAILY #60 tabs 07/28/22 omeprazole 40 mg capsule,delayed 40 mg PO DAILY #30 caps 07/28/22 release sucralfate 1 gram tablet 1 g PO BID #60 tabs 07/28/22 metronidazole 500 mg tablet 500 mg PO BID 7 days #14 tabs 02/16/23 Allergies Allergy/AdvReac Type Severity Reaction Status Date / Time adhesive [ADHESIVE] Allergy Unknown UNKNOWN Verified 01/12/23 11:10 codeine [CODEINE] Allergy Unknown UNKNOWN, Verified 01/12/23 11:10 rash fish derived [FISH] Allergy Unknown HIVES Verified 01/12/23 11:10 gabapentin Allergy Unknown severe Verified 01/12/23 11:10 urinary incont. hydrocodone [Vicodin] Allergy Unknown Unknown Verified 01/12/23 11:10 Iodinated Contrast Media Allergy Unknown HIVES Verified 01/12/23 11:10 [IV Dye, Iodine Containing] nitrofurantoin Allergy Unknown HIVES Verified 01/12/23 11:10 [Nitrofurantoin] Penicillins [PENICILLINS] Allergy Unknown RASH Verified 01/12/23 11:10 Sulfa (Sulfonamide Allergy Unknown RASH Verified 01/12/23 11:10 Antibiotics) [SULFA (SULFONAMIDE ANTIBIOTICS)] valsartan [From DIOVAN] Allergy Unknown HIVES Verified 01/12/23 11:10 vancomycin [VANCOMYCIN] Allergy Unknown RASH Verified 01/12/23 11:10 ibuprofen [IBUPROFEN] AdvReac Unknown UNKNOWN Verified 01/12/23 11:10 [facility] Past Medical History Source: nursing notes reviewed Medical History Asthma Asthma-COPD overlap syndrome Breast cancer C. difficile colitis COPD (chronic obstructive pulmonary disease) Fusion of toes of right foot Gout attack Lymphadenopathy, cervical Obesity Ovarian cancer Right humeral fracture Surgical History H/O colonoscopy H/O hysterectomy for benign disease H/O kyphoplasty H/O lymph node biopsy History of tonsillectomy and adenoidectomy History of total bilateral knee replacement Hx of cataract surgery Family History Family History Father No problems noted. Mother Breast cancer Sister Breast cancer Social History Social History Household Members: Children Housing: House Alcohol intake: never Patient Tobacco Use Status: Former Tobacco user Substance Use Type: Marijuana service: No Current occupational status: retired Physical Exam ED Vital Signs: Vital Signs - 24 hr 02/16/23 14:00 02/16/23 14:11 Temperature 98.2 F 98.4 F Pulse Rate 59 59 Respiratory Rate 16 20 Blood Pressure 189/84 H 189/84 H Pulse Oximetry 98 96 Oxygen Delivery Method Room Air Room Air BMI result Body Mass Index 38.2 General appearance no acute distress The pharynx is clear with moist mucous membranes Neck is supple Respiratory no distress Chest clear to auscultation bilateral Heart no murmur Abdomen soft nontender The skin had normal turgor Gait and balance were normal, interaction comprehension and expression were normal Course Course Course Narrative: Patient had normal CBC Chemistry showed BUN creatinine 30/1.58, likely from mild dehydration and was treated with a L of fluids COVID testing was negative Patient could not provide a stool sample here so was advised to follow with her doctor She was tolerating p.o. easily and remained comfortable throughout her visit and patient was discharged from the ER stable comfortable to follow with her doctor Medications Administered Discontinued Medications Generic Name Dose Route Start Last Admin Trade Name Freq PRN Reason Stop Dose Admin Sodium Chloride 1,000 mls @ 999 mls/hr 02/16/23 17:30 02/16/23 18:50 Ns IVCONT 02/16/23 18:30 Infused .Q1H1M DEVANG Infusion Metronidazole 500 mg 02/16/23 19:00 02/16/23 19:08 Metronidazole 500 Mg Tablet PO 02/16/23 19:01 500 mg ONCE ONE Administration Medical Decision Making Lab Data [facility] Lab Attestation statement: I reviewed the patient's lab results. 02/16/23 16:41 02/16/23 16:41 Labs: Lab Results 02/16/23 02/16/23 Range/Units 16:41 16:41 WBC 12.3 H (4.8-10.8) X10*3/uL RBC 4.84 (4.20-5.50) X10*6/uL Hgb 15.2 (12.0-16.0) g/dl Hct 46.8 (37.0-47.0) % MCV 96.7 (80.0-98.0) fL MCH 31.4 (27.0-33.0) pg MCHC 32.5 (31.0-35.0) g/dl RDW 13.5 (11.0-16.0) % Plt Count 307 (160-400) X10*3/uL MPV 10.1 (9.4-12.3) fL Immature Gran % (Auto) 0.8 H (0.0-0.4) % Neut % (Auto) 63.4 (45-73) % Lymph % (Auto) 25.1 (20-40) % Harper % (Auto) 8.8 (2-11) % Eos % (Auto) 1.4 (0-4) % Baso % (Auto) 0.5 (0-2) % Lymph # (Auto) 3.1 (1.2-4.9) X10*3/uL Harper # (Auto) 1.1 (0.1-1.2) X10*3/uL Eos # (Auto) 0.2 (0.0-0.4) X10*3/uL Baso # (Auto) 0.1 (0.0-0.2) X10*3/uL Abs Immat Gran (auto) 0.10 H (0.00-0.03) X10*3/uL Absolute Neuts (auto) 7.8 (2.0-8.3) x10*3/uL Absolute Nucleated RBC 0.000 (0.0-0.012) X10*3/uL Nucleated RBC % (auto) 0.0 (0.0-0.2) /100WBC Sodium 138 (135-145) mmol/L Potassium 3.7 D (3.3-5.1) mmol/L Chloride 99 (96-108) mmol/L Carbon Dioxide 28 (22-29) mmol/L Anion Gap 15 (12-20) BUN 30 H (9-16) mg/dL Creatinine 1.58 H (0.5-1.4) mg/dL Estim Creat Clear Calc 26.0 Estimated GFR 31 Random Glucose 91 (60-115) mg/dL Calcium 10.7 H D (8.4-10.2) mg/dL Magnesium 1.6 (1.6-2.6) mg/dL Total Bilirubin 0.9 (0.0-1.0) mg/dL Direct Bilirubin 0.3 (0.0-0.5) mg/dL AST 24 (5-31) U/L ALT 15 (0-31) U/L Alkaline Phosphatase 93 (39-117) U/L Total Protein 8.2 H (6.5-8.0) g/dL Albumin 4.3 (3.5-5.0) g/dL Discharge Plan Discharge Clinical Impression: Diarrhea Patient Disposition: Home, Self-Care Additional Instructions: As you have had diarrhea 15 times a day for a week and it is not improving we are starting Flagyl antibiotic which covers some types but not all of diarrhea Best plan would be to get a stool sample but you were not able to give us 1 today So call your primary doctor's office tomorrow to both make an appointment and to get them to order a stool sample a specially to check for C difficile, which can sometimes happen to people who use omeprazole Even if you can see the doctor try to get what you need to get a stool sample for the lab from her doctor's office and you could follow-up with an appointment Return to ER any time for dizziness weakness dehydration, passing blood, fever, , vomiting, abdominal pain, any worse condition or concerns Prescriptions: New metronidazole 500 mg tablet 500 mg PO BID 7 Days Qty: 14 0RF No Action albuterol sulfate [Ventolin HFA] 90 mcg/actuation HFA aerosol inhaler 2 puff inhalation Q6H PRN (Reason: shortness of breath or wheezing) Qty: 18 3RF albuterol sulfate 2.5 mg /3 mL (0.083 %) solution for nebulization 4.1667 mg inhalation Q4H PRN (Reason: for wheezing) Qty: 150 0RF aspirin [Aspir-81] 81 mg Tablet,Delayed Release (Dr/Ec) 81 mg PO DAILY Spiriva with HandiHaler 18 mcg capsule, w/inhalation device 18 mcg inhalation DAILY alprazolam 0.25 mg tablet 0.25 mg PO BID metoprolol succinate 50 mg tablet extended release 24 hr 50 mg PO DAILY hydrochlorothiazide 25 mg tablet 25 mg PO DAILY levothyroxine 50 mcg tablet 50 mcg PO DAILY cholecalciferol (vitamin D3) 25 mcg (1,000 unit) capsule 25 mcg PO DAILY oxycodone 5 mg tablet 5 mg PO QID PRN (Reason: Pain) tramadol 50 mg tablet 50 mg PO BID PRN (Reason: Pain) imipramine HCl 10 mg tablet 20 mg PO DAILY Qty: 60 6RF sucralfate 1 gram tablet 1 g PO BID Qty: 60 6RF omeprazole 40 mg capsule,delayed release(DR/EC) 40 mg PO DAILY Qty: 30 6RF fluticasone propion-salmeterol [Advair Diskus] 250-50 mcg/dose blister with device 1 inh inhalation BID MDD SOB AND WJEEZING 30 Days Qty: 60 5RF Interventions: ED Discharge Assessment Last Done: 02/16/23 19:12 Discharge Date/Time: 02/16/23 19:28
[2023-02-16 16:45] LABS: MANUAL DIFF FLAG NO
[2023-02-16 16:47] LABS: Basophils Absolute Auto 0.1 X10*3/uL (0.0-0.2); Basophils Percent Auto 0.5 % (0-2); Eosinophils Absolute Auto 0.2 X10*3/uL (0.0-0.4); Eosinophils Percent Auto 1.4 % (0-4); Hematocrit 46.8 % (37.0-47.0); Hemoglobin 15.2 g/dl (12.0-16.0); Imm Gran Pct Auto 0.8 % (0.0-0.4); Lymphocytes Absolute Auto 3.1 X10*3/uL (1.2-4.9); Lymphocytes Percent Auto 25.1 % (20-40); Mean Corpuscular HGB Conc 32.5 g/dl (31.0-35.0); Mean Corpuscular Hemoglobin 31.4 pg (27.0-33.0); Mean Corpuscular Volume 96.7 fL (80.0-98.0); Mean Platelet Volume 10.1 fL (9.4-12.3); Monocytes Absolute Auto 1.1 X10*3/uL (0.1-1.2); Monocytes Percent Auto 8.8 % (2-11); Neutrophils Absolute Auto 7.8 x10*3/uL (2.0-8.3); Neutrophils Percent Auto 63.4 % (45-73); Platelet Count 307 X10*3/uL (160-400); Red Blood Count 4.84 X10*6/uL (4.20-5.50); Red Cell Distribution Width 13.5 % (11.0-16.0); White Blood Count 12.3 X10*3/uL (4.8-10.8)
[2023-02-16 16:58] VITALS: BP 153/89; PULSE 68; RESP 14; TEMP 36.9; O2SAT 94
[2023-02-16 17:09] LABS: Alanine Aminotransferase 15 U/L (0-31); Albumin Level 4.3 g/dL (3.5-5.0); Alkaline Phosphatase 93 U/L (39-117); Anion Gap 15 (12-20); Aspartate Amino Transferase 24 U/L (5-31); Bilirubin Direct 0.3 mg/dL (0.0-0.5); Bilirubin Total 0.9 mg/dL (0.0-1.0); Blood Urea Nitrogen 30 mg/dL (9-16); Calcium 10.7 mg/dL (8.4-10.2); Carbon Dioxide 28 mmol/L (22-29); Chloride 99 mmol/L (96-108); Estimated Glomerular Filt Rate 31; Glucose Random 91 mg/dL (60-115); Magnesium 1.6 mg/dL (1.6-2.6); Potassium 3.7 mmol/L (3.3-5.1); Sodium 138 mmol/L (135-145); Total Protein 8.2 g/dL (6.5-8.0)
[2023-02-16] MEDS: 0.9 % Sodium Chloride 1,000 ML 999 ML IVCONT (17:33)
[2023-02-16] MEDS: metroNIDAZOLE 500 MG TABLET PO (19:08)
== END 2023-02-16 19:28 | disposition home or self-care (01) ==
PROVIDERS: Physician Assistant Medical; Emergency Provider Emergency Medicine; PCP Internal Medicine
DX: R19.7 Diarrhea, unspecified (principal); Z79.899 Other long term (current) drug therapy; Z87.891 Personal history of nicotine dependence
CPT/HCPCS: 36415; 80048; 80076; 83735; 85025; 96360; 99284

== ENCOUNTER 2023-02-17 12:28 | Outpatient (REF) | payer MEDICARE, SELFPAY | END 2023-02-17 12:29 | disposition home or self-care (01) | LOC: HO.LNP 12:28 | PROVIDERS: Visit Provider Internal Medicine | DX: Z13.89 Encounter for screening for other disorder (principal) | CPT/HCPCS: 87507 ==

== ENCOUNTER 2023-03-30 08:46 | Outpatient (AMB) | payer MEDICARE, SELFPAY ==
--- NOTE | 2023-03-30 08:57 | MHC.OFFVIS ---
Intake Vital Signs 03/30/23 08:59 Height 4 ft 11 in Weight 195 lb 6 oz BMI 39.5 BP 190/81 H Blood Pressure Location Lt brachial Position Sitting Pulse 76 Intake Visit Reasons: Breast exam, 6 month follow up Intake Note: Patient is seen in office for 6 month follow up visit, breast exam. Patient c/o: continued sore and tender in the right breast near the axilla Comic Artist Required: No Rental Counter Clerk: Rental Counter Clerk Present Accompanied by: Self / Same As Patient Allergies adhesive [ADHESIVE] Allergy (Unknown, Verified 03/30/23 08:58) UNKNOWN codeine [CODEINE] Allergy (Unknown, Verified 03/30/23 08:58) UNKNOWN, rash fish derived [FISH] Allergy (Unknown, Verified 03/30/23 08:58) HIVES gabapentin Allergy (Unknown, Verified 03/30/23 08:58) severe urinary incont. hydrocodone [Vicodin] Allergy (Unknown, Verified 03/30/23 08:58) Unknown Iodinated Contrast Media [IV Dye, Iodine Containing] Allergy (Unknown, Verified 03/30/23 08:58) HIVES nitrofurantoin [Nitrofurantoin] Allergy (Unknown, Verified 03/30/23 08:58) HIVES Penicillins [PENICILLINS] Allergy (Unknown, Verified 03/30/23 08:58) RASH Sulfa (Sulfonamide Antibiotics) [SULFA (SULFONAMIDE ANTIBIOTICS)] Allergy (Unknown, Verified 03/30/23 08:58) RASH valsartan [From DIOVAN] Allergy (Unknown, Verified 03/30/23 08:58) HIVES vancomycin [VANCOMYCIN] Allergy (Unknown, Verified 03/30/23 08:58) RASH ibuprofen [IBUPROFEN] Adverse Reaction (Unknown, Verified 03/30/23 08:58) UNKNOWN HPI HPI Comments History of Present Illness Details Joelle Keller returns today for follow-up visit following an invasive ductal carcinoma of the left breast. 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 She subsequently underwent a lumpectomy with needle localization on 06/01/2015, the results of which revealed a 1.2 cm invasive ductal carcinoma with a single focus of invasive tumor, grade 1, ER/MN positive, HER2 Nancy inconclusive, with DCIS, negative margins. A sentinel node biopsy on 06/26/2015 was then performed which produced two lymph nodes negative for carcinoma ([id number]). She completed radiation therapy in August 2015 and took 5 years of tamoxifen.? She stopped her tamoxifen in September 2020. ? She reports right neck pain extending down the shoulder into the fingers. 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 This is being watched as she is not considered a good candidate for surgery.? She denies any right breast symptoms or discharge.? Routine mammography obtained on 10/11/2021 revealed no new suspicious findings, (BI-RADS 2: benign). She reported a mass in the right axilla which is painful to the touch there for a diagnostic mammogram and ultrasound was performed. This revealed no mammographic or sonographic evidence of malignancy (BI-RADS 2). [facility] Medical History Asthma Asthma-COPD overlap syndrome Breast cancer C. difficile colitis COPD (chronic obstructive pulmonary disease) Fusion of toes of right foot Gout attack Lymphadenopathy, cervical Obesity Ovarian cancer Right humeral fracture Surgical History H/O colonoscopy H/O hysterectomy for benign disease H/O kyphoplasty H/O lymph node biopsy History of tonsillectomy and adenoidectomy History of total bilateral knee replacement Hx of cataract surgery Family History Father No problems noted. Mother Breast cancer Sister Breast cancer Social History Household Members: Children Housing: House Alcohol intake: never Patient Tobacco Use Status: Former Tobacco user Substance Use Type: Marijuana service: No Current occupational status: retired Review of Systems Const All systems reviewed & are unremarkable except as noted in HPI and below Eyes Reports no additional complaints ENT Reports no additional complaints Card Denies chest pain, Denies irregular heart rhythm and Denies leg edema Resp Reports as per HPI GI Reports no additional complaints Reports no additional complaints and Denies nipple discharge Musc Details: Shoulder pain as noted in HPI Reports abnormal gait (Needs the walker to ambulate) and Reports back pain Skin/Breast Reports system reviewed and no additional complaints, except as documented, Denies breast swelling, Denies breast skin changes, Denies breast pain, Denies breast mass and Denies nipple discharge Neuro Reports abnormal gait (Needs the walker to ambulate) Psych Reports no additional complaints Endo Reports no additional complaints Physical Exam Const General: cooperative, healthy appearing, comfortable, no acute distress, well developed, alert and awake HEENT Head: Yes normocephalic and Yes atraumatic Chest Other: Left breast: No skin change, well-healed incision in the upper outer quadrant, no nipple retraction, no nipple discharge, no palpable mass, no enlarged lymph nodes. Right breast: No skin change, no nipple retraction, no nipple discharge, no palpable mass, no enlarged lymph nodes Chest/axillae images: 1. Left breast incision 2. Left axillary incision 3. Possible mild lymphedema, no palpable mass or nodes appreciated in right axilla Resp Effort & Inspection: normal respiratory effort, no cough and no stridor GI Inspection: Yes normal to inspection Skin General skin exam: no rashes or lesions noted Extrem Other: No arm edema Assessment & Plan Assessment & Plan (1) Breast cancer: Code(s): C50.919 - Malignant neoplasm of unspecified site of unspecified female breast Plan: 82-year-old female patient with a previous history of left breast lumpectomy and sentinel node biopsy for invasive ductal carcinoma, P T1 a N0 M0, ER/MN positive, now with 7.5 years following surgery. Examination today revealed no new suspicious findings in either breast with no evidence of recurrent disease. Her most recent mammogram of 10/19/2022 revealed no mammographic evidence of malignancy (BI-RADS 2). I recommended follow-up examination in 1 year and yearly mammogram in October 2023. She is welcome to call sooner for any new concerns. Coding Level of Care Code Est Pt Level 3 (44081) Diagnoses Breast cancer C50.919
[2023-03-30 08:59] VITALS: BP 190/81; PULSE 76; BMI 39.5
== END 2023-03-30 09:14 | disposition home or self-care (01) ==
PROVIDERS: PCP Internal Medicine; Visit Provider Surgery
DX: Z85.3 Personal history of malignant neoplasm of breast (principal)
CPT/HCPCS: 99213

== ENCOUNTER → 2023-03-30 08:46 | Outpatient (BNVA) | payer MEDICARE, SELFPAY | PROVIDERS: PCP Internal Medicine; Visit Provider Surgery | DX: C50.919 Malignant neoplasm of unspecified site of unspecified female breast (principal) | CPT/HCPCS: 99212 ==

== ENCOUNTER 2023-04-04 09:28 | Outpatient (AMB) | payer MEDICARE, SELFPAY ==
--- NOTE | 2023-04-04 09:32 | A.OFFVIS_ITS ---
Intake Vital Signs 04/04/23 09:48 Height 4 ft 11 in Weight 194 lb 0.108 oz BMI 39.2 BP 143/71 H Blood Pressure Location Rt brachial Position Sitting Pulse 80 Intake Visit Reasons: 6 months follow up Intake Note: Patient presents to in office visit today in 6 months follow up of IBS. CC: Patient states she has been doing not too great . She states she stopped the Sucralfate tablets because it was causing her constipation. She states she was having rectal irritation and is now going every 4-5 days. She states when she goes it comes out without control . Also reports occasional abdominal pain, and nausea in the morning. Washroom Cleaner Required: No Accompanied by: Self / Same As Patient Allergies adhesive [ADHESIVE] Allergy (Unknown, Verified 04/04/23 09:53) UNKNOWN codeine [CODEINE] Allergy (Unknown, Verified 04/04/23 09:53) UNKNOWN, rash fish derived [FISH] Allergy (Unknown, Verified 04/04/23 09:53) HIVES gabapentin Allergy (Unknown, Verified 04/04/23 09:53) severe urinary incont. hydrocodone [Vicodin] Allergy (Unknown, Verified 04/04/23 09:53) Unknown Iodinated Contrast Media [IV Dye, Iodine Containing] Allergy (Unknown, Verified 04/04/23 09:53) HIVES nitrofurantoin [Nitrofurantoin] Allergy (Unknown, Verified 04/04/23 09:53) HIVES Penicillins [PENICILLINS] Allergy (Unknown, Verified 04/04/23 09:53) RASH Sulfa (Sulfonamide Antibiotics) [SULFA (SULFONAMIDE ANTIBIOTICS)] Allergy (Unknown, Verified 04/04/23 09:53) RASH valsartan [From DIOVAN] Allergy (Unknown, Verified 04/04/23 09:53) HIVES vancomycin [VANCOMYCIN] Allergy (Unknown, Verified 04/04/23 09:53) RASH ibuprofen [IBUPROFEN] Adverse Reaction (Unknown, Verified 04/04/23 09:53) UNKNOWN HPI 6 months follow up HPI Details Assessment & Plan (1) Irritable bowel syndrome with diarrhea: ?Code(s): K58.0 - Irritable bowel syndrome with diarrhea ?Plan: She is now doing well!! She has had no accidents, and she credits the imipramine. She also continues her carafate 1 tab bid and her omeprazole and now feels her GI conditions are controlled. She is having a very dry mouth and this sometimes causes trouble swallowing. She will be seeing an ENT about this - she also had a very severe reaction to the COVID vaccine with facial swelling and swollen area behind the ears. ROV 6 mos. (2) GERD (gastroesophageal reflux disease): ?Code(s): K21.9 - Gastro-esophageal reflux disease without esophagitis (3) Gallstones: ?Comment: ?negative HIDA scan ?Code(s): K80.20 - Calculus of gallbladder without cholecystitis without obstruction ? ? ? Medications: New sucralfate 1 g PO BID 60 tabs 6RF ? ? Refilled imipramine HCl 20 mg (2 x 10 mg) PO DAILY 60 tabs 6 RF K58.0 - Irritable bowel syndrome wit h diarrhea ? omeprazole 40 mg PO DAILY 30 caps 6RF K58.0 - Irritable bowel syndrome wit h diarrhea ? TODAY'S VISIT She does not want any more pills, she does not want the sucralfate anymore and stopped it. She is very frustrated with the lack of progress in her bowel condition and many of her other medical conditions. She feels that none of the problems are getting solved, and she is tired of taking medications. She has a poor understanding of the fact that we can not reverse the process of aging and there are many disorders that need to be treated with chronic mediations. She thinks that all her doctors should get together in a room and discuss my conditions to find out what is wrong. Which is not a practical approach. She also has problems with chronic pain and is frustrated that her opioid medications can not be increased. So, I will have her follow with her PCP for all further care and refills of her omeprazole and she can return to our service if she wishes. [facility], [facility] Medical History Asthma Asthma-COPD overlap syndrome Breast cancer C. difficile colitis COPD (chronic obstructive pulmonary disease) Fusion of toes of right foot Gout attack Lymphadenopathy, cervical Obesity Ovarian cancer Right humeral fracture Surgical History H/O colonoscopy H/O hysterectomy for benign disease H/O kyphoplasty H/O lymph node biopsy History of tonsillectomy and adenoidectomy History of total bilateral knee replacement Hx of cataract surgery Family History Father No problems noted. Mother Breast cancer Sister Breast cancer Social History Household Members: Children Housing: House Alcohol intake: never Patient Tobacco Use Status: Former Tobacco user Substance Use Type: Marijuana service: No Current occupational status: retired Review of Systems Const Denies fatigue, Denies fever(s), Denies night sweats, Denies poor appetite and Denies weight loss Eyes Details: glasses Reports requires corrective lenses ENT Reports Normal hearing present, Denies dental pain, Denies dysphagia, Denies hearing loss, Denies mouth pain, Denies odynophagia, Denies throat swelling, Denies tongue swelling and Reports other (Dentition adequate) Card Reports no additional complaints Resp Reports no additional complaints GI Denies abdominal pain, Denies melena, Denies bloating, Denies hematochezia, Denies constipation, Denies GI cramping, Denies dysphagia, Denies excessive flatus, Denies early satiety, Reports heartburn, Reports diarrhea, Denies nausea, Denies odynophagia, Denies vomiting and Denies hematemesis Skin/Breast Denies pruritus, Denies lesions, Denies rash and Denies jaundice Neuro Reports Normal hearing present and Denies Abnormal speech present Endo Denies fatigue Aller/Immun Denies throat swelling and Denies tongue swelling Physical Exam Vital Signs: Last Vital Signs Pulse 80 04/04/23 09:48 BP 143/71 H 04/04/23 09:48 BMI result Body Mass Index 39.2 Const General: cooperative, no acute distress, well developed and well groomed Nutritional Appearance: well nourished and obese Orientation/consciousness: oriented to person, oriented to place and oriented to time Limitations: No language barrier and ambulation with walker HEENT Head: Yes normocephalic and Yes atraumatic Eyes General: appearance normal, both eyes and all related structures Pupils: Equal, round and reactive pupils present Neck Neck: Yes normal visual inspection and Yes no lymphadenopathy Thyroid: Thyroid normal Resp Effort & Inspection: normal respiratory effort and able to speak in complete sentences Auscultation: clear to auscultation bilaterally Cardio Rate: regular rate Rhythm: regular rhythm Heart sounds: Normal, physiologic split S2 sound present Peripheral pulses: radial pulses present and posterior tibial pulses present GI Inspection: No distended, Yes Abdominal panniculus present and Yes obesity Palpation (GI): Soft to palpation, nontender, no guarding, not rigid and No hepatosplenomegaly present Percussion: Yes normal to percussion Auscultation: normal bowel sounds Rectal Exam - Female: deferred Skin General skin exam: no rashes or lesions noted, turgor normal, skin not dry, no jaundice, No spider nevi and no striae Rashes: no rashes Nails: normal Neuro General: oriented to person, oriented to place and oriented to time Cranial nerves: Yes Equal, round and reactive pupils present and Yes Normal hearing present Speech: No Abnormal speech present Extrem General: Yes normal to inspection, No clubbing, No cyanosis and No edema Psych Appearance: grossly normal and well kempt Mental Status: mental status grossly normal Speech and movement: Normal speech and movement present Affect: normal affect Attitude: cooperative Thought process: Normal thought process present and not confabulating Thought content: Normal thought content present Insight: Poor insight present (Psych) Judgement: Poor judgement present (Psych) Assessment & Plan Assessment & Plan (1) Irritable bowel syndrome with diarrhea: Code(s): K58.0 - Irritable bowel syndrome with diarrhea Plan: She does not want any more pills, she does not want the sucralfate anymore and stopped it. She is very frustrated with the lack of progress in her bowel condition and many of her other medical conditions. She feels that none of the problems are getting solved, and she is tired of taking medications. She has a poor understanding of the fact that we can not reverse the process of aging and there are many disorders that need to be treated with chronic mediations. She thinks that all her doctors should get together in a room and discuss my conditions to find out what is wrong. Which is not a practical approach. She also has problems with chronic pain and is frustrated that her opioid medications can not be increased. So, I will have her follow with her PCP for all further care and refills of her omeprazole and she can return to our service if she wishes. (2) GERD (gastroesophageal reflux disease): Code(s): K21.9 - Gastro-esophageal reflux disease without esophagitis (3) Gallstones: Comment: negative HIDA scan Code(s): K80.20 - Calculus of gallbladder without cholecystitis without obstruction Coding Level of Care Code Est Pt Level 3 (98602) Diagnoses Irritable bowel syndrome with diarrhea K58.0 GERD (gastroesophageal reflux disease) K21.9 Gallstones K80.20
[2023-04-04 09:48] VITALS: BP 143/71; PULSE 80; BMI 39.2
== END 2023-04-04 10:18 | disposition home or self-care (01) ==
PROVIDERS: PCP Internal Medicine; Visit Provider Nurse Practitioner
DX: K58.0 Irritable bowel syndrome with diarrhea (principal); K21.9 Gastro-esophageal reflux disease without esophagitis; K80.20 Calculus of gallbladder without cholecystitis without obstruction
CPT/HCPCS: 99213

== ENCOUNTER → 2023-04-04 09:28 | Outpatient (BNVA) | payer MEDICARE, SELFPAY | PROVIDERS: PCP Internal Medicine; Visit Provider Nurse Practitioner | DX: K58.0 Irritable bowel syndrome with diarrhea (principal); K21.9 Gastro-esophageal reflux disease without esophagitis; K80.20 Calculus of gallbladder without cholecystitis without obstruction | CPT/HCPCS: 99212 ==

== ENCOUNTER 2023-04-27 10:39 | Outpatient (REF) | payer MEDICARE, SELFPAY ==
--- NOTE | ~2023-04-27 | US_ITS ---
EXAMINATION: US VENOUS WITH DOPPLER UPPER EXTREMITY, RIGHT CLINICAL INFORMATION: Right arm swelling and edema COMPARISON: None available. TECHNIQUE: Ultrasound of the upper extremity is performed using compression sonography and color and pulse Doppler flow with assessment of augmentation of flow. There is also imaging and Doppler assessment of the jugular and subclavian veins. Spectral analysis with color-flow imaging is performed. FINDINGS: Respiratory variation, normal compression, and augmented flow are noted throughout the upper extremity including the axillary, brachial, cubital, and radial and ulnar veins. There is normal flow in the internal jugular and subclavian veins. There is no visible deep or superficial thrombophlebitis. If the patient's symptoms progress, a followup ultrasound in 5 -7 days might be of value to exclude proximal propagation from a nonvisualized distal arm vein. US/US venous duplex UE RT IMPRESSION: No DVT demonstrated in the right upper extremity
== END 2023-04-27 10:40 | disposition home or self-care (01) ==
LOC: HO.US 10:39
PROVIDERS: PCP Internal Medicine; Visit Provider Internal Medicine
DX: R22.31 Localized swelling, mass and lump, right upper limb (principal); Z86.718 Personal history of other venous thrombosis and embolism
CPT/HCPCS: 93971

== ENCOUNTER 2023-05-18 10:07 | Outpatient (AMB) | payer MEDICARE, SELFPAY ==
[2023-05-18 10:25] VITALS: BP 146/72; PULSE 80; O2SAT 96
--- NOTE | 2023-05-18 10:25 | A.OFFVIS_ITS ---
Intake Vital Signs 05/18/23 10:25 Height 4 ft 11 in BMI Reason not done Patient refused/unable BP 146/72 H Blood Pressure Location Lt brachial Position Sitting Pulse 80 Pulse Source Pulse Oximeter Pulse Oximetry (%) 96 Oxygen Delivery Method Room Air Intake Visit Reasons: COPD Claim Professional Required: No Accompanied by: Self / Same As Patient Allergies adhesive [ADHESIVE] Allergy (Unknown, Verified 05/18/23 10:35) UNKNOWN codeine [CODEINE] Allergy (Unknown, Verified 05/18/23 10:35) UNKNOWN, rash fish derived [FISH] Allergy (Unknown, Verified 05/18/23 10:35) HIVES gabapentin Allergy (Unknown, Verified 05/18/23 10:35) severe urinary incont. hydrocodone [Vicodin] Allergy (Unknown, Verified 05/18/23 10:35) Unknown Iodinated Contrast Media [IV Dye, Iodine Containing] Allergy (Unknown, Verified 05/18/23 10:35) HIVES nitrofurantoin [Nitrofurantoin] Allergy (Unknown, Verified 05/18/23 10:35) HIVES Penicillins [PENICILLINS] Allergy (Unknown, Verified 05/18/23 10:35) RASH Sulfa (Sulfonamide Antibiotics) [SULFA (SULFONAMIDE ANTIBIOTICS)] Allergy (Unknown, Verified 05/18/23 10:35) RASH valsartan [From DIOVAN] Allergy (Unknown, Verified 05/18/23 10:35) HIVES vancomycin [VANCOMYCIN] Allergy (Unknown, Verified 05/18/23 10:35) RASH ibuprofen [IBUPROFEN] Adverse Reaction (Unknown, Verified 05/18/23 10:35) UNKNOWN Medication List - Last Reconciled 05/18/23 by Caro Dobson MD albuterol sulfate 4.1667 mg (5 mL) inhalation Q4H PRN alprazolam 0.25 mg PO BID aspirin 81 mg PO DAILY cholecalciferol (vitamin D3) 25 mcg PO DAILY fluticasone propion-salmeterol 250-50 mcg/dose (Advair Diskus) 1 inh inhalation BID 30 days MDD SOB AND WJEEZING hydrochlorothiazide 25 mg PO DAILY imipramine HCl 20 mg (2 x 10 mg) PO DAILY levothyroxine 50 mcg PO DAILY metoprolol succinate ER 50 mg PO DAILY omeprazole 40 mg PO DAILY oxycodone 5 mg PO QID PRN tiotropium bromide 18 mcg inhalation DAILY tramadol 50 mg PO BID PRN Ventolin HFA 90 mcg/actuation (albuterol sulfate) 2 puffs inhalation Q6H PRN NS Do you need a note to return to daycare/school/sports/work: No HPI COPD HPI Details TELLO, 82 YEARS OLD VERY PLEASANT FEMALE IS HERE FOR HER 4 MONTHS FOLLOW-UP. BREATHING SPARKS HAS BEEN VERY STABLE. SHE HAS HAD NO ACUTE EXACERBATIONS. GETS SHORT OF BREATH ON WALKING AROUND EVEN WITH THE WALKER AND HAS TO SIT DOWN FREQUENTLY. SHE HAS ONLY OCCASIONAL COUGH AND WHEEZING REQUIRING USE OF THE ALBUTEROL INHALER OR UPDRAFTS. THESE ACUTE SYMPTOMS ARE ONLY WHEN IT IS HOT AND HUMID, OR IF SHE HAS ACUTE VIRAL ILLNESS. MAINLY USING HER ADVAIR B.I.D. AND SPIRIVA HANDIHALER ONCE A DAY. [facility] Medical History Asthma Asthma-COPD overlap syndrome Breast cancer C. difficile colitis COPD (chronic obstructive pulmonary disease) Fusion of toes of right foot Gout attack Lymphadenopathy, cervical Obesity Ovarian cancer Right humeral fracture Surgical History H/O colonoscopy H/O hysterectomy for benign disease H/O kyphoplasty H/O lymph node biopsy History of tonsillectomy and adenoidectomy History of total bilateral knee replacement Hx of cataract surgery Family History Father No problems noted. Mother Breast cancer Sister Breast cancer Social History Household Members: Children Housing: House Alcohol intake: never Patient Tobacco Use Status: Former Tobacco user Substance Use Type: Marijuana service: No Current occupational status: retired Review of Systems Const All systems reviewed & are unremarkable except as noted in HPI and below Eyes Reports no additional complaints ENT Reports no additional complaints Card Denies chest pain, Denies irregular heart rhythm and Denies leg edema Resp Reports as per HPI GI Reports no additional complaints Reports no additional complaints Musc Reports abnormal gait (Needs the walker to ambulate) and Reports back pain Skin/Breast Reports system reviewed and no additional complaints, except as documented Neuro Reports abnormal gait (Needs the walker to ambulate) Psych Reports no additional complaints Endo Reports no additional complaints Physical Exam Vital Signs: Last Vital Signs Pulse 80 05/18/23 10:25 BP 146/72 H 05/18/23 10:25 Pulse Ox 96 05/18/23 10:25 Oxygen Delivery Method Room Air 05/18/23 10:25 Const Other: Grossly overweight General: comfortable, no acute distress, alert and awake Orientation/consciousness: patient oriented x3 HEENT Head: Yes normal to inspection General nose exam: No nasal polyps present and No nasal discharge present Face and sinus: Yes sinuses nontender Mouth: oropharynx normal Throat: Yes posterior oropharynx normal Eyes General: appearance normal, both eyes and all related structures Neck Neck: Yes normal visual inspection, Yes no lymphadenopathy (And no submandibular adenitis), Yes trachea midline and Yes no JVD Thyroid: Thyroid normal Chest Chest palpation & inspection: normal inspection of the chest, normal palpation of entire chest wall and no tenderness Resp Other: Percussion note is resonant, breath sounds are very distant with prolonged expiratory phase. No active wheezes or crepitations are heard today. Cardio Palpation: normal PMI Rate: regular rate Rhythm: regular rhythm Heart sounds: no gallops and no murmurs GI Palpation (GI): Soft to palpation, Tenderness to palpation present (GI), No hepatosplenomegaly present, Palpable mass present and Other GI palpation findings present (Abdomen is obese and somewhat protuberant) Auscultation: normal bowel sounds Back/Spine/Pelvis Thoracic/Lumbar Spine: thoracic and lumbar spine normal to inspection and thoraco-lumbar ROM limited Skin General skin exam: no rashes or lesions noted Neuro General: patient oriented x3, No gait normal (Gait unstable ,uses walker) and no focal motor deficits Cranial nerves: Yes CN's II-XII intact bilaterally Extrem General: Yes normal to inspection, Yes no clubbing, cyanosis or edema and Yes no calf tenderness Psych Appearance: grossly normal and well kempt Speech and movement: Normal speech and movement present Assessment & Plan Assessment & Plan (1) Asthma-COPD overlap syndrome: Comment: She is doing very well on the current regimen and will continue the same. Advair 250-50 1 inhalation b.i.d. Spiriva Handi Haler 18 mcg 1 inhalation daily Albuterol solution why a nebulizer Q 4-6 hours p.r.n.. For outdoors she can use Ventolin HFA 2 puffs Q 4-6 hours p.r.n. Code(s): J44.9 - Chronic obstructive pulmonary disease, unspecified (2) Obesity: Comment: SHE IS AWARE OF THE FACT THAT SHE IS QUITE OVERWEIGHT. SHE WOULD TRY TO RESTRICT THE CALORIES INTAKE AND CONTINUE WALKING OUTDOORS MUCH SHE CAN. Code(s): E66.9 - Obesity, unspecified Coding Level of Care Code Est Pt Level 3 (17503) Diagnoses Asthma-COPD overlap syndrome J44.9 Obesity E66.9
== END 2023-05-18 10:47 | disposition home or self-care (01) ==
PROVIDERS: PCP Internal Medicine; Visit Provider Internal Medicine
DX: J44.9 Chronic obstructive pulmonary disease, unspecified (principal); E66.9 Obesity, unspecified
CPT/HCPCS: 99213

== ENCOUNTER → 2023-05-18 10:07 | Outpatient (BNVA) | payer MEDICARE, SELFPAY | PROVIDERS: PCP Internal Medicine; Visit Provider Internal Medicine | DX: J44.9 Chronic obstructive pulmonary disease, unspecified (principal); E66.9 Obesity, unspecified | CPT/HCPCS: 99212 ==

== ENCOUNTER 2023-06-29 12:36 | Outpatient (REF) | payer MEDICARE, SELFPAY ==
[2023-06-29 13:14] LABS: MANUAL DIFF FLAG NO
[2023-06-29 13:22] LABS: Basophils Absolute Auto 0.1 X10*3/uL (0.0-0.2); Basophils Percent Auto 0.9 % (0-2); Eosinophils Absolute Auto 0.4 X10*3/uL (0.0-0.4); Eosinophils Percent Auto 3.8 % (0-4); Hematocrit 43.7 % (37.0-47.0); Hemoglobin 13.9 g/dl (12.0-16.0); Imm Gran Abs Auto 0.08 X10*3/uL (0.00-0.03); Imm Gran Pct Auto 0.8 % (0.0-0.4); Lymphocytes Absolute Auto 2.3 X10*3/uL (1.2-4.9); Lymphocytes Percent Auto 22.7 % (20-40); Mean Corpuscular HGB Conc 31.8 g/dl (31.0-35.0); Mean Corpuscular Hemoglobin 31.7 pg (27.0-33.0); Mean Corpuscular Volume 99.8 fL (80.0-98.0); Mean Platelet Volume 10.2 fL (9.4-12.3); Monocytes Absolute Auto 0.9 X10*3/uL (0.1-1.2); Neutrophils Absolute Auto 6.4 x10*3/uL (2.0-8.3); Neutrophils Percent Auto 62.8 % (45-73); Platelet Count 293 X10*3/uL (160-400); Red Blood Count 4.38 X10*6/uL (4.20-5.50); Red Cell Distribution Width 13.2 % (11.0-16.0); White Blood Count 10.1 X10*3/uL (4.8-10.8)
[2023-06-29 14:25] LABS: Alanine Aminotransferase 12 U/L (0-31); Alkaline Phosphatase 91 U/L (39-117); Anion Gap 15 (12-20); Aspartate Amino Transferase 19 U/L (5-31); Bilirubin Total 0.5 mg/dL (0.0-1.0); Blood Urea Nitrogen 23 mg/dL (9-16); Calcium 10.6 mg/dL (8.4-10.2); Carbon Dioxide 28 mmol/L (22-29); Chloride 102 mmol/L (96-108); Estimated Glomerular Filt Rate 39; Free T4 (Free Thyroxine) 0.89 ng/dL (0.71-1.85); Glucose Random 89 mg/dL (60-115); Potassium 3.9 mmol/L (3.3-5.1); Sodium 141 mmol/L (135-145); Total Protein 7.9 g/dL (6.5-8.0)
== END 2023-06-29 12:37 | disposition home or self-care (01) ==
LOC: HO.10HDL 12:36
PROVIDERS: Visit Provider Internal Medicine
DX: I12.9 Hypertensive chronic kidney disease with stage 1 through stage 4 chronic kidney disease, or unspecified chronic kidney disease (principal); J44.9 Chronic obstructive pulmonary disease, unspecified; N18.9 Chronic kidney disease, unspecified; E03.9 Hypothyroidism, unspecified
CPT/HCPCS: 36415; 80053; 84439; 84443; 85025

== ENCOUNTER 2023-09-04 10:23 | Outpatient (AMB) | payer MEDICARE, SELFPAY ==
[2023-09-04 10:23] VITALS: BMI 38.4
--- NOTE | 2023-09-04 10:23 | HO.NEPHOV ---
HPI HPI Comments History of Present Illness Details Elderly woman with a history of longstanding hypertension and CKD along with COPD. She continues have shortness or breath and uses inhalers. PFSH Medical History Asthma-COPD overlap syndrome Gout attack Lymphadenopathy, cervical Obesity Asthma COPD (chronic obstructive pulmonary disease) Fusion of toes of right foot Right humeral fracture Ovarian cancer C. difficile colitis Breast cancer Surgical History H/O colonoscopy H/O lymph node biopsy Hx of cataract surgery History of tonsillectomy and adenoidectomy H/O hysterectomy for benign disease History of total bilateral knee replacement H/O kyphoplasty Family History Father No problems noted. Mother Breast cancer Sister Breast cancer Social History Household Members: Children Housing: House Alcohol intake: never Patient Tobacco Use Status: Former Tobacco user Substance Use Type: Marijuana service: No Current occupational status: retired Vital Signs 09/04/23 10:23 Height 4 ft 11 in Weight 190 lb BMI 38.4 Physical Exam Vital Signs: BMI result Body Mass Index 38.4 Assessment & Plan Assessment & Plan (1) CKD (chronic kidney disease): Code(s): N18.9 - Chronic kidney disease, unspecified Plan: CKD in a setting of longstanding hypertension. Repeat renal panel ordered. (2) Asthma-COPD overlap syndrome: Code(s): J44.9 - Chronic obstructive pulmonary disease, unspecified Plan: Follow-up with Pulmonary (3) Hypertension: Code(s): I10 - Essential (primary) hypertension Plan: Blood pressure has been acceptable. Increase her to check blood pressure at home if possible. Continue with low-salt diet. (4) Hypercalcemia: Code(s): E83.52 - Hypercalcemia Plan: Repeat calcium moderate along with intact PTH and SPEP Orders: Orders Blood Urea Nitrogen Today I10 - Essential (primary) hypertension, N18.9 - Chronic kidney disease, unspecified Complete Blood Count no Diff Today I10 - Essential (primary) hypertension, N18.9 - Chronic kidney disease, unspecified Immunofixation Pnl, Serum Today E83.52 - Hypercalcemia, N18.9 - Chronic kidney disease, unspecified Protein Electrophoresis, Serum Today E83.52 - Hypercalcemia, N18.9 - Chronic kidney disease, unspecified Electrolytes Today I10 - Essential (primary) hypertension, N18.9 - Chronic kidney disease, unspecified Creatinine Today I10 - Essential (primary) hypertension, N18.9 - Chronic kidney disease, unspecified Calcium Today I10 - Essential (primary) hypertension, N18.9 - Chronic kidney disease, unspecified UA and rflx microscopic Today I10 - Essential (primary) hypertension, N18.9 - Chronic kidney disease, unspecified Phosphorus Today E83.52 - Hypercalcemia, N18.9 - Chronic kidney disease, unspecified Parathyroid Hormone Intact Today E83.52 - Hypercalcemia, N18.9 - Chronic kidney disease, unspecified Telehealth Telehealth Location of provider rendering services: practice address Location of patient: address on file Patient Identification confirmed using: Name, : Yes Telehealth method: voice only Patient verbally consented to treatment: Yes Minutes spent on Phone/Video with Pt.: 13 Coding Level of Care Code Tele Est Pt Level 2 (26101) Diagnoses CKD (chronic kidney disease) N18.9 Asthma-COPD overlap syndrome J44.9 Hypertension I10 Hypercalcemia E83.52 Results Reviewed Nephrology Results: Hgb 13.9 g/dl (12.0-16.0) 06/29/23 WBC 10.1 X10*3/uL (4.8-10.8) 06/29/23 Plt Count 293 X10*3/uL (160-400) 06/29/23 Sodium 141 mmol/L (135-145) 06/29/23 Potassium 3.9 mmol/L (3.3-5.1) 06/29/23 Chloride 102 mmol/L (96-108) 06/29/23 Carbon Dioxide 28 mmol/L (22-29) 06/29/23 BUN 23 mg/dL (9-16) H 06/29/23 Creatinine 1.32 mg/dL (0.5-1.4) 06/29/23 Calcium 10.6 mg/dL (8.4-10.2) H 06/29/23
== END 2023-09-05 09:57 | disposition home or self-care (01) ==
PROVIDERS: PCP Internal Medicine; Visit Provider Internal Medicine Hypertension Specialist
DX: I12.9 Hypertensive chronic kidney disease with stage 1 through stage 4 chronic kidney disease, or unspecified chronic kidney disease (principal); N18.9 Chronic kidney disease, unspecified; J44.9 Chronic obstructive pulmonary disease, unspecified; E83.52 Hypercalcemia
CPT/HCPCS: 99442

== ENCOUNTER → 2023-09-04 10:23 | Outpatient (BNVA) | payer MEDICARE, SELFPAY | PROVIDERS: PCP Internal Medicine; Visit Provider Internal Medicine Hypertension Specialist ==

== ENCOUNTER 2023-09-26 09:16 | Outpatient (REF) | payer MEDICARE, SELFPAY ==
[2023-09-26 10:53] LABS: Hematocrit 43.5 % (37.0-47.0); Hemoglobin 13.6 g/dl (12.0-16.0); Mean Corpuscular HGB Conc 31.3 g/dl (31.0-35.0); Mean Corpuscular Hemoglobin 31.6 pg (27.0-33.0); Mean Corpuscular Volume 100.9 fL (80.0-98.0); Mean Platelet Volume 10.8 fL (9.4-12.3); Platelet Count 294 X10*3/uL (160-400); Red Blood Count 4.31 X10*6/uL (4.20-5.50); Red Cell Distribution Width 13.3 % (11.0-16.0)
[2023-09-26 11:26] LABS: Appearance Urine Cloudy; Color Urine Yellow; Glucose Urine UA Negative (Negative); Leukocyte Esterase Urine Small (1+) (Negative); Nitrite Urine Negative (Negative); PH 6.5 (5.0-9.0); UMIC TRIGGER UA YES; Urine Blood Negative (Negative); Urine Ketones Negative (Negative); Urine Protein 30 (1+) mg/dL (Neg-Trace)
[2023-09-26 11:37] LABS: Parathyroid Hormone Intact 55.7 pg/mL (8.7-77.1)
[2023-09-26 11:49] LABS: Anion Gap 13 (12-20); Blood Urea Nitrogen 24 mg/dL (9-16); Calcium 10.6 mg/dL (8.4-10.2); Carbon Dioxide 29 mmol/L (22-29); Chloride 104 mmol/L (96-108); Estimated Glomerular Filt Rate 40; Phosphorus 2.3 mg/dL (2.7-4.5); Sodium 142 mmol/L (135-145)
[2023-09-26 11:49] LABS: Bacteria Urine 1+ (None Seen); Hyaline Casts Urine 0-2 /LPF (0-2); RBC Urine 0-2 /HPF (0-2); Squamous Epithelial Cell Urine >20 /HPF (0-2)
[2023-09-28 11:03] LABS: Prot Elec - Albumin 3.6 g/dL (3.8-4.8); Prot Elec - Alpha1 0.3 g/dL (0.2-0.3); Prot Elec - Alpha2 0.9 g/dL (0.5-0.9); Prot Elec - Beta 1 0.5 g/dL (0.4-0.6); Prot Elec - Beta 2 0.5 g/dL (0.2-0.5); Prot Elec - Gamma 1.3 g/dL (0.8-1.7); Prot Elec - Total Protein 7.1 g/dL (6.1-8.1)
[2023-09-29 10:34] LABS: IgA 349 mg/dL (70-320); IgG 1332 mg/dL (600-1540); IgM 274 mg/dL (50-300)
== END 2023-09-26 09:17 | disposition home or self-care (01) ==
LOC: HO.LAB 09:16
PROVIDERS: PCP Internal Medicine; Visit Provider Internal Medicine Hypertension Specialist
DX: I12.9 Hypertensive chronic kidney disease with stage 1 through stage 4 chronic kidney disease, or unspecified chronic kidney disease (principal); N18.9 Chronic kidney disease, unspecified; E83.52 Hypercalcemia
CPT/HCPCS: 36415; 80051; 81001; 81003; 82310; 82565; 82784; 83970; 84100; 84165; 84520; 85027; 86334

== ENCOUNTER 2023-09-29 10:47 | Outpatient (REF) | payer MEDICARE, SELFPAY ==
[2023-09-29 14:09] LABS: Alanine Aminotransferase 16 U/L (0-31); Albumin Level 3.9 g/dL (3.5-5.0); Alkaline Phosphatase 93 U/L (39-117); Anion Gap 13 (12-20); Aspartate Amino Transferase 19 U/L (5-31); Bilirubin Total 0.5 mg/dL (0.0-1.0); Blood Urea Nitrogen 26 mg/dL (9-16); Calcium 10.3 mg/dL (8.4-10.2); Carbon Dioxide 28 mmol/L (22-29); Chloride 104 mmol/L (96-108); Estimated Glomerular Filt Rate 42; Glucose Random 90 mg/dL (60-115); Potassium 4.5 mmol/L (3.3-5.1); Sodium 140 mmol/L (135-145); Total Protein 7.8 g/dL (6.5-8.0)
[2023-09-29 14:13] LABS: Thyroid Stimulating Hormone 2.81 uIU/mL (0.32-4.0); Vitamin D 25-OH Total 47.3 ng/mL (>30)
== END 2023-09-29 10:48 | disposition home or self-care (01) ==
LOC: HO.10HDL 10:47
PROVIDERS: Visit Provider Internal Medicine
DX: J44.9 Chronic obstructive pulmonary disease, unspecified (principal); N18.9 Chronic kidney disease, unspecified; E03.9 Hypothyroidism, unspecified; M81.0 Age-related osteoporosis without current pathological fracture
CPT/HCPCS: 36415; 80053; 82306; 84439; 84443

== ENCOUNTER 2023-10-03 10:15 | Outpatient (AMB) | payer MEDICARE, SELFPAY ==
[2023-10-03 10:41] VITALS: BP 142/78; PULSE 75; O2SAT 97; BMI 39.9
--- NOTE | 2023-10-03 10:41 | HO.NEPHOV ---
HPI HPI Comments History of Present Illness Details Elderly woman with a history of longstanding hypertension and CKD along with COPD. She continues have shortness or breath and uses inhalers. 10/03/23; Has increased urine output PFSH Medical History Asthma-COPD overlap syndrome Gout attack Lymphadenopathy, cervical Obesity Asthma COPD (chronic obstructive pulmonary disease) Fusion of toes of right foot Right humeral fracture Ovarian cancer C. difficile colitis Breast cancer Surgical History H/O colonoscopy H/O lymph node biopsy Hx of cataract surgery History of tonsillectomy and adenoidectomy H/O hysterectomy for benign disease History of total bilateral knee replacement H/O kyphoplasty Family History Father No problems noted. Mother Breast cancer Sister Breast cancer Social History Household Members: Children Housing: House Alcohol intake: never Patient Tobacco Use Status: Former Tobacco user Substance Use Type: Marijuana service: No Current occupational status: retired Vital Signs 10/03/23 10:41 Height 4 ft 11 in Weight 197 lb 8 oz BMI 39.9 BP 142/78 H Blood Pressure Location Lt brachial Position Sitting Pulse 75 Pulse Source Pulse Oximeter Pulse Oximetry (%) 97 Oxygen Delivery Method Room Air Physical Exam Vital Signs: Last Vital Signs Pulse 75 10/03/23 10:41 BP 142/78 H 10/03/23 10:41 Pulse Ox 97 10/03/23 10:41 Oxygen Delivery Method Room Air 10/03/23 10:41 BMI result Body Mass Index 39.9 Const General: comfortable Nutritional Appearance: well nourished Orientation/consciousness: patient oriented x3 HEENT Head: No normal to inspection Mouth: moist mucous membranes Neck Neck: Yes supple and Yes no JVD Resp Auscultation: clear to auscultation bilaterally, no rales and rub present Cardio Jugular venous distension: no JVD Palpation: no palpable S3 and no palpable S4 Heart sounds: no rubs GI Palpation (GI): Soft to palpation and nontender Percussion: No Fluid wave present General: Yes no CVA tenderness Back/Spine/Pelvis Back: no CVA tenderness Skin General skin exam: no rashes or lesions noted Neuro General: patient oriented x3 Extrem General: Yes no pedal edema and No clubbing Assessment & Plan Assessment & Plan (1) CKD (chronic kidney disease): Code(s): N18.9 - Chronic kidney disease, unspecified Plan: CKD in a setting of longstanding hypertension. Cr is better at 1.23 (2) Hypercalcemia: Code(s): E83.52 - Hypercalcemia Plan: Repeat calcium is better SPEP - NO MCGP DC Vit D supplement (3) Hypertension: Code(s): I10 - Essential (primary) hypertension Plan: Blood pressure has been acceptable. check blood pressure at home if possible. Continue with low-salt diet. (4) Asthma-COPD overlap syndrome: Code(s): J44.9 - Chronic obstructive pulmonary disease, unspecified Plan: Follow-up with Pulmonary Coding Level of Care Code Est Pt Level 3 (83406) Diagnoses CKD (chronic kidney disease) N18.9 Hypercalcemia E83.52 Hypertension I10 Asthma-COPD overlap syndrome J44.9 Results Reviewed Nephrology Results: Hgb 13.6 g/dl (12.0-16.0) 09/26/23 WBC 9.0 X10*3/uL (4.8-10.8) 09/26/23 Plt Count 294 X10*3/uL (160-400) 09/26/23 Sodium 140 mmol/L (135-145) 09/29/23 Potassium 4.5 mmol/L (3.3-5.1) 09/29/23 Chloride 104 mmol/L (96-108) 09/29/23 Carbon Dioxide 28 mmol/L (22-29) 09/29/23 BUN 26 mg/dL (9-16) H 09/29/23 Creatinine 1.23 mg/dL (0.5-1.4) 09/29/23 Calcium 10.3 mg/dL (8.4-10.2) H 09/29/23 Phosphorus 2.3 mg/dL (2.7-4.5) L 09/26/23 PTH Intact 55.7 pg/mL (8.7-77.1) 09/26/23 Urine Protein 30 (1+) mg/dL (Neg-Trace) H 09/26/23
== END 2023-10-03 11:02 | disposition home or self-care (01) ==
PROVIDERS: PCP Internal Medicine; Visit Provider Internal Medicine Hypertension Specialist
DX: I12.9 Hypertensive chronic kidney disease with stage 1 through stage 4 chronic kidney disease, or unspecified chronic kidney disease (principal); N18.9 Chronic kidney disease, unspecified; E83.52 Hypercalcemia; J44.9 Chronic obstructive pulmonary disease, unspecified
CPT/HCPCS: 99213

== ENCOUNTER → 2023-10-03 10:15 | Outpatient (BNVA) | payer MEDICARE, SELFPAY | PROVIDERS: PCP Internal Medicine; Visit Provider Internal Medicine Hypertension Specialist | DX: I12.9 Hypertensive chronic kidney disease with stage 1 through stage 4 chronic kidney disease, or unspecified chronic kidney disease (principal); N18.9 Chronic kidney disease, unspecified; E83.52 Hypercalcemia; J44.9 Chronic obstructive pulmonary disease, unspecified | CPT/HCPCS: 99212 ==

== ENCOUNTER → 2023-10-25 08:15 | Outpatient (BNV) | payer MEDICARE, SELFPAY | PROVIDERS: PCP Internal Medicine; Visit Provider Radiology Diagnostic Radiology | DX: Z12.31 Encounter for screening mammogram for malignant neoplasm of breast (principal) | CPT/HCPCS: 77063; 77067 ==

== ENCOUNTER 2023-10-25 08:22 | Outpatient (REF) | payer MEDICARE, SELFPAY ==
--- NOTE | ~2023-10-25 | MM_ITS ---
EXAMINATION: MM SCREENING DIGITAL BREAST TOMOSYNTHESIS, BILATERAL CLINICAL INFORMATION: Screening. Asymptomatic. The patient has a history of conservatively treated left breast cancer. COMPARISON: Mammography: This study is compared with prior exams dating back to 2019. TECHNIQUE: Digital breast tomosynthesis is performed in both the craniocaudal and mediolateral oblique views along with computer-aided detection (CAD). Synthesized 2D images are generated from the tomosynthesis. FINDINGS: There are scattered areas of fibroglandular density (ACR BI-RADS breast composition Category b). There are architectural changes in the upper outer quadrant of the left breast from prior surgery for cancer. There are associated coarse, dystrophic calcifications in the surgical bed. There are some additional calcifications which are smaller and in the same region as the coarse calcifications. Additional mammographic imaging of the upper outer quadrant of the left breast with magnification is advised. In the right breast, there are no significant masses, abnormal calcifications, or other abnormalities. There are a few, unchanged, benign secretory calcifications in the right breast. MM/MM tomosynthesis screening BI IMPRESSION: Calcifications in the upper outer quadrant of the left breast warrant additional mammographic imaging with magnification. No mammographic signs of malignancy right breast. ASSESSMENT: BI-RADS BI-RADS 0 - Incomplete: Needs additional Imaging. RECOMMENDATION: Additional views of the left breast. Radiology department staff will contact the patient for additional imaging. Additional Imaging required This examination should not preclude the clinical evaluation of a suspicious palpable abnormality. This patient's information was entered into a reminder system with a target due date for their next mammogram.
== END 2023-10-25 08:23 | disposition home or self-care (01) ==
LOC: HO.MAMMO 08:22
PROVIDERS: PCP Internal Medicine; Visit Provider Internal Medicine
DX: Z12.31 Encounter for screening mammogram for malignant neoplasm of breast (principal)
CPT/HCPCS: 77063; 77067

== ENCOUNTER 2023-11-23 09:33 | Outpatient (AMB) | payer MEDICARE, SELFPAY ==
--- NOTE | 2023-11-23 09:36 | A.OFFVIS_ITS ---
Intake Vital Signs 11/23/23 09:39 Height 4 ft 11 in Weight 198 lb BMI 40.0 BP 136/67 Blood Pressure Location Lt brachial Position Sitting Pulse 85 Pulse Source Doppler Pulse Oximetry (%) 95 Oxygen Delivery Method Room Air Intake Visit Reasons: COPD Allergies adhesive [ADHESIVE] Allergy (Unknown, Verified 11/23/23 12:10) UNKNOWN codeine [CODEINE] Allergy (Unknown, Verified 11/23/23 12:10) UNKNOWN, rash fish derived [FISH] Allergy (Unknown, Verified 11/23/23 12:10) HIVES gabapentin Allergy (Unknown, Verified 11/23/23 12:10) severe urinary incont. hydrocodone [Vicodin] Allergy (Unknown, Verified 11/23/23 12:10) Unknown Iodinated Contrast Media [IV Dye, Iodine Containing] Allergy (Unknown, Verified 11/23/23 12:10) HIVES nitrofurantoin [Nitrofurantoin] Allergy (Unknown, Verified 11/23/23 12:10) HIVES Penicillins [PENICILLINS] Allergy (Unknown, Verified 11/23/23 12:10) RASH Sulfa (Sulfonamide Antibiotics) [SULFA (SULFONAMIDE ANTIBIOTICS)] Allergy (Unknown, Verified 11/23/23 12:10) RASH valsartan [From DIOVAN] Allergy (Unknown, Verified 11/23/23 12:10) HIVES vancomycin [VANCOMYCIN] Allergy (Unknown, Verified 11/23/23 12:10) RASH ibuprofen [IBUPROFEN] Adverse Reaction (Unknown, Verified 11/23/23 12:10) UNKNOWN Medication List - Last Reconciled 11/23/23 by Caro Dobson MD albuterol sulfate 4.1667 mg (5 mL) inhalation Q4H PRN alprazolam 0.25 mg PO BID aspirin 81 mg PO DAILY fluticasone propion-salmeterol 250-50 mcg/dose (Advair Diskus) 1 inh inhalation BID 30 days MDD SOB AND WJEEZING hydrochlorothiazide 25 mg PO DAILY imipramine HCl 20 mg (2 x 10 mg) PO DAILY levothyroxine 50 mcg PO DAILY metoprolol succinate ER 50 mg PO DAILY omeprazole 40 mg PO DAILY oxycodone 5 mg PO QID PRN tiotropium bromide 18 mcg inhalation DAILY tramadol 50 mg PO BID PRN Ventolin HFA 90 mcg/actuation (albuterol sulfate) 2 puffs inhalation Q6H PRN NS Do you need a note to return to daycare/school/sports/work: No HPI COPD HPI Details Joelle is 83 years old female morbidly obese , with chronic obstructive pulmonary disease , She is being treated with combination of Spiriva HandiHaler and Advair 250-50 . Breathing francis has been well except that she gets short of breath on minimal exertion., . With mild intermittent cough She is ex smoker, claims that she did not improve as much as she expected after quitting smoking. Anyway she does get around with Rollator walker, Does not have much need to use the rescue inhaler. And also she does not need to use any oxygen. Her main problem is that she is having difficulty in using Spiriva device , still using 1 capsule a day but the dispensation with the crushing device ( LUPION ) is difficult. It was easy for her to use Spiriva in the HandiHaler, device. [facility] Medical History Asthma-COPD overlap syndrome Gout attack Lymphadenopathy, cervical Obesity Asthma COPD (chronic obstructive pulmonary disease) Fusion of toes of right foot Right humeral fracture Ovarian cancer C. difficile colitis Breast cancer Surgical History H/O colonoscopy H/O lymph node biopsy Hx of cataract surgery History of tonsillectomy and adenoidectomy H/O hysterectomy for benign disease History of total bilateral knee replacement H/O kyphoplasty Family History Father No problems noted. Mother Breast cancer Sister Breast cancer Social History Household Members: Children Housing: House Alcohol intake: never Patient Tobacco Use Status: Former Tobacco user Substance Use Type: Marijuana service: No Current occupational status: retired Review of Systems Const All systems reviewed & are unremarkable except as noted in HPI and below Eyes Reports no additional complaints ENT Reports no additional complaints Card Denies chest pain, Denies irregular heart rhythm and Denies leg edema Resp Reports as per HPI GI Reports no additional complaints Reports no additional complaints Musc Reports abnormal gait (Needs the walker to ambulate) and Reports back pain Skin/Breast Reports system reviewed and no additional complaints, except as documented Neuro Reports abnormal gait (Needs the walker to ambulate) Psych Reports no additional complaints Endo Reports no additional complaints Physical Exam Vital Signs: Last Vital Signs Pulse 85 11/23/23 09:39 BP 136/67 11/23/23 09:39 Pulse Ox 95 11/23/23 09:39 Oxygen Delivery Method Room Air 11/23/23 09:39 BMI result Body Mass Index 40.0 Const Other: Grossly overweight General: comfortable, no acute distress, alert and awake Orientation/consciousness: patient oriented x3 HEENT Head: Yes normal to inspection General nose exam: No nasal polyps present and No nasal discharge present Face and sinus: Yes sinuses nontender Mouth: oropharynx normal Throat: Yes posterior oropharynx normal Eyes General: appearance normal, both eyes and all related structures Neck Neck: Yes normal visual inspection, Yes no lymphadenopathy (And no submandibular adenitis), Yes trachea midline and Yes no JVD Thyroid: Thyroid normal Chest Chest palpation & inspection: normal inspection of the chest, normal palpation of entire chest wall and no tenderness Resp Other: Percussion note is resonant, breath sounds are very distant with prolonged expiratory phase. No active wheezes or crepitations are heard today. Cardio Palpation: normal PMI Rate: regular rate Rhythm: regular rhythm Heart sounds: no gallops and no murmurs GI Palpation (GI): Soft to palpation, Tenderness to palpation present (GI), No hepatosplenomegaly present, Palpable mass present and Other GI palpation findings present (Abdomen is obese and somewhat protuberant) Auscultation: normal bowel sounds Back/Spine/Pelvis Thoracic/Lumbar Spine: thoracic and lumbar spine normal to inspection and thoraco-lumbar ROM limited Skin General skin exam: no rashes or lesions noted Neuro General: patient oriented x3, No gait normal (Gait unstable ,uses walker) and no focal motor deficits Cranial nerves: Yes CN's II-XII intact bilaterally Extrem General: Yes normal to inspection, Yes no clubbing, cyanosis or edema and Yes no calf tenderness Psych Appearance: grossly normal and well kempt Speech and movement: Normal speech and movement present Assessment & Plan Assessment & Plan (1) COPD (chronic obstructive pulmonary disease): Comment: KNOWN CASE OF ADVANCED CHRONIC OBSTRUCTIVE PULMONARY DISEASE WITH ASTHMATIC COMPONENT, ( ACOS ) STAYING STABLE AND WELL CONTROLLED. Code(s): J44.9 - Chronic obstructive pulmonary disease, unspecified Qualifiers: COPD type: COPD with acute exacerbation Qualified Code(s): J44.1 - Chronic obstructive pulmonary disease with (acute) exacerbation Plan: [place] ADVAIR 250 -50 ONE INH BID SPIRIVA HANDIHALER ONE INH DAILY VENTOLIN 2 PUFFS Q 4-6 HRS PRN * will send a note to pharmacy to provide her HANDIHALOR device instead of LUPION , for spiriva (2) Asthma: Comment: PATIENT HAS ACOS( OVERLAP SYNDROME ) STABLE AND CONTROLLED . TREATMENT DESCRIBED ABOVE UNDER COPD. Code(s): J45.909 - Unspecified asthma, uncomplicated Plan: as under COPD (3) Obesity: Comment: SHE IS AWARE OF THE FACT THAT SHE IS QUITE OVERWEIGHT. SHE WOULD TRY TO RESTRICT THE CALORIES INTAKE AND CONTINUE WALKING OUTDOORS MUCH SHE CAN. Code(s): E66.9 - Obesity, unspecified Plan: as above Coding Level of Care Code Est Pt Level 3 (96457) Diagnoses COPD (chronic obstructive pulmonary disease) J44.1 COPD type: COPD with acute exacerbation Asthma J45.909 Obesity E66.9
[2023-11-23 09:39] VITALS: BP 136/67; PULSE 85; O2SAT 95; BMI 40.0
== END 2023-11-23 10:07 | disposition home or self-care (01) ==
PROVIDERS: PCP Internal Medicine; Visit Provider Internal Medicine
DX: J44.1 Chronic obstructive pulmonary disease with (acute) exacerbation (principal); J45.909 Unspecified asthma, uncomplicated; E66.9 Obesity, unspecified
CPT/HCPCS: 99213

== ENCOUNTER → 2023-11-23 09:33 | Outpatient (BNVA) | payer MEDICARE, SELFPAY | PROVIDERS: PCP Internal Medicine; Visit Provider Internal Medicine | DX: J44.1 Chronic obstructive pulmonary disease with (acute) exacerbation (principal); J45.909 Unspecified asthma, uncomplicated; E66.9 Obesity, unspecified; Z68.41 Body mass index [BMI] 40.0-44.9, adult | CPT/HCPCS: 99212 ==

== ENCOUNTER 2023-12-05 12:32 | Outpatient (REF) | payer MEDICARE, SELFPAY ==
--- NOTE | ~2023-12-05 | MM_ITS ---
EXAMINATION: MM DIAGNOSTIC DIGITAL MAMMOGRAPHY, LEFT CLINICAL INFORMATION: Diagnostic for follow-up and evaluate new left breast calcifications at the upper outer lumpectomy site left breast abutting the most anterior dystrophic calcification. History left lumpectomy for breast cancer, 2014. COMPARISON: Mammography: 10/25/2023, 10/19/2022, 10/11/2021, 10/09/2020, and exams dating back to 2013. TECHNIQUE: Digital mammography is performed in the following views: 2-D spot magnification views left CC x2 and left ML x2. FINDINGS: There are scattered areas of fibroglandular density (ACR BI-RADS breast composition Category b). There are approximately 5 calcifications abutting the most anterior dystrophic calcification, which are minimally pleomorphic, however mostly similar size and morphology. There location and appearance abutting a large dystrophic calcification favors them to be the same etiology. These are probably benign, and six-month interval follow-up recommended to ensure stability. Results are provided to the patient at time of visit by the technologist. MM/MM added views LT IMPRESSION: Probably benign calcifications abutting the most anterior large dystrophic calcification at the lumpectomy site left breast upper outer quadrant. Recommend six-month interval follow-up left diagnostic mammography to include standard magnification views to ensure stability, and assess for expected evolution. ASSESSMENT: BI-RADS BI-RADS 3 - Probably benign finding(s) - 12 month follow-up suggested RECOMMENDATION: 6 Month F/U This patient's information was entered into a reminder system with a target due date for their next mammogram.
== END 2023-12-05 12:33 | disposition home or self-care (01) ==
LOC: HO.MAMMO 12:32
PROVIDERS: PCP Internal Medicine; Visit Provider Internal Medicine
DX: R92.1 Mammographic calcification found on diagnostic imaging of breast (principal)
CPT/HCPCS: 77065

== ENCOUNTER → 2023-12-05 13:00 | Outpatient (BNV) | payer MEDICARE, SELFPAY | PROVIDERS: PCP Internal Medicine; Visit Provider Radiology Diagnostic Radiology | DX: R92.1 Mammographic calcification found on diagnostic imaging of breast (principal) | CPT/HCPCS: 77065 ==

== ENCOUNTER 2023-12-21 09:34 | Outpatient (REF) | payer MEDICARE, SELFPAY | END 2023-12-21 09:35 | disposition home or self-care (01) | LOC: HO.XRAY 09:34 | PROVIDERS: PCP Internal Medicine; Visit Provider Otolaryngology | DX: Z13.89 Encounter for screening for other disorder (principal) ==

== ENCOUNTER 2024-02-19 08:38 | Outpatient (REF) | payer MEDICARE, SELFPAY ==
--- NOTE | ~2024-02-19 | FL_ITS ---
EXAMINATION: XR FLUOROSCOPY UPPER GI WITH AIR CLINICAL INFORMATION: Dysphagia COMPARISON: None TECHNIQUE: Fluoroscopic air contrast upper GI examination was performed utilizing standard techniques with thin and thick barium and effervescent granules. Numerous spot images were obtained. FINDINGS: Lateral cine images of the oropharynx and hypopharynx demonstrate normal swallow mechanism with normal epiglottic inversion and soft palate elevation. No tracheal penetration, glottic or subglottic aspiration identified. No nasopharyngeal reflux present. Hypopharyngeal structures appear normal without evidence of mass or diverticulum. 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 Dual and single contrast images of the esophagus demonstrate a corkscrew appearance. No masses or ulcerations are seen. Esophageal peristalsis is highly disorganized. There is mild narrowing of the GE junction. No evidence of hiatus hernia identified. No significant gastroesophageal reflux was seen during the course of the examination and on reflux views. Dual contrast and single contrast images of the stomach demonstrated a normal contour. Evaluation of the gastric mucosa is limited due to lack of distention from poor tolerance of the effervescent granules. No obvious masses or ulcerations are seen. Contrast freely passed into the gastric antrum and duodenal bulb without delay. Single and air-contrast images of the duodenal bulb demonstrate no abnormality. The duodenal sweep has a normal appearance, course, and mucosal fold appearance. The imaged proximal jejunum has a normal fold pattern and caliber. FLUOROSCOPY TIME: 4 minutes 5 seconds Number of Spot Images: 7 Number of Cine: 13 DOSE AREA PRODUCT: 1928 uGy-m2 (microgray-meter squared) FL/FL barium swallow with air IMPRESSION: 1. Moderate severe cricopharyngeal achalasia 2. 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 3. Corkscrew appearance of the esophagus with highly disorganized esophageal peristalsis consistent with severe esophageal dysmotility. 4. Mild narrowing of the GE junction likely due to achalasia or a benign stricture. Recommend correlation with EGD. 5. Limited evaluation of the gastric mucosa due to lack of distention of the stomach from poor tolerance of the effervescent granules. This procedure was performed by Emeterio Garrett PA-C, and supervised by Dr. Palm
== END 2024-02-19 08:39 | disposition home or self-care (01) ==
LOC: HO.XRAY 08:38
PROVIDERS: PCP Internal Medicine; Visit Provider Otolaryngology
DX: R13.13 Dysphagia, pharyngeal phase (principal)
CPT/HCPCS: 74221

== ENCOUNTER → 2024-02-19 08:45 | Outpatient (BNV) | payer MEDICARE, SELFPAY | PROVIDERS: PCP Internal Medicine; Visit Provider Physician Assistant Surgical | DX: R13.10 Dysphagia, unspecified (principal) | CPT/HCPCS: 74246 ==

== ENCOUNTER 2024-02-26 08:10 | Outpatient (REF) | payer MEDICARE, SELFPAY ==
[2024-02-26 09:16] LABS: Appearance Urine Cloudy; Color Urine Yellow; Glucose Urine UA Negative (Negative); Leukocyte Esterase Urine Small (1+) (Negative); Nitrite Urine Negative (Negative); UMIC TRIGGER UA YES; Urine Blood Negative (Negative); Urine Ketones Trace mg/dL (Negative); Urine Protein Trace mg/dL (Neg-Trace)
[2024-02-26 09:19] LABS: Bacteria Urine 2+ (None Seen); Hyaline Casts Urine 0-2 /LPF (0-2); RBC Urine 0-2 /HPF (0-2); Squamous Epithelial Cell Urine >20 /HPF (0-2)
== END 2024-02-26 08:11 | disposition home or self-care (01) ==
LOC: HO.LAB 08:10
PROVIDERS: PCP Internal Medicine; Visit Provider Internal Medicine Hypertension Specialist
DX: I12.9 Hypertensive chronic kidney disease with stage 1 through stage 4 chronic kidney disease, or unspecified chronic kidney disease (principal); N18.9 Chronic kidney disease, unspecified
CPT/HCPCS: 81001

== ENCOUNTER 2024-03-04 10:36 | Outpatient (AMB) | payer MEDICARE, SELFPAY ==
[2024-03-04 10:35] VITALS: BP 122/72; PULSE 86; O2SAT 92; BMI 39.6
--- NOTE | 2024-03-04 10:35 | HO.NEPHOV ---
Vital Signs 03/04/24 10:35 Height 4 ft 11 in Weight 196 lb BMI 39.6 BP 122/72 Blood Pressure Location Lt brachial Position Sitting Pulse 86 Pulse Source Pulse Oximeter Pulse Oximetry (%) 92 Oxygen Delivery Method Room Air Intake Visit Reasons: COPD follow-up/ Conf Shadow Graph Weight Operator Required: No Accompanied by: Self / Same As Patient Allergies adhesive [ADHESIVE] Allergy (Unknown, Verified 03/04/24 10:36) UNKNOWN codeine [CODEINE] Allergy (Unknown, Verified 03/04/24 10:36) UNKNOWN, rash fish derived [FISH] Allergy (Unknown, Verified 03/04/24 10:36) HIVES gabapentin Allergy (Unknown, Verified 03/04/24 10:36) severe urinary incont. hydrocodone [Vicodin] Allergy (Unknown, Verified 03/04/24 10:36) Unknown Iodinated Contrast Media [IV Dye, Iodine Containing] Allergy (Unknown, Verified 03/04/24 10:36) HIVES nitrofurantoin [Nitrofurantoin] Allergy (Unknown, Verified 03/04/24 10:36) HIVES Penicillins [PENICILLINS] Allergy (Unknown, Verified 03/04/24 10:36) RASH Sulfa (Sulfonamide Antibiotics) [SULFA (SULFONAMIDE ANTIBIOTICS)] Allergy (Unknown, Verified 03/04/24 10:36) RASH valsartan [From DIOVAN] Allergy (Unknown, Verified 03/04/24 10:36) HIVES vancomycin [VANCOMYCIN] Allergy (Unknown, Verified 03/04/24 10:36) RASH ibuprofen [IBUPROFEN] Adverse Reaction (Unknown, Verified 03/04/24 10:36) UNKNOWN Medication List - Last Reconciled 03/04/24 by Nicolas Powell MD albuterol sulfate 4.1667 mg (5 mL) inhalation Q4H PRN alprazolam 0.25 mg PO BID aspirin 81 mg PO DAILY fluticasone propion-salmeterol 250-50 mcg/dose (Advair Diskus) 1 inh inhalation BID 30 days MDD SOB AND WJEEZING hydrochlorothiazide 25 mg PO DAILY imipramine HCl 20 mg (2 x 10 mg) PO DAILY levothyroxine 50 mcg PO DAILY metoprolol succinate ER 50 mg PO DAILY omeprazole 40 mg PO Q OTHER DAY oxycodone 5 mg PO QID PRN tiotropium bromide 18 mcg inhalation DAILY 30 days tramadol 50 mg PO BID PRN Ventolin HFA 90 mcg/actuation (albuterol sulfate) 2 puffs inhalation Q6H PRN NS HPI Comments Details: Elderly woman with a history of longstanding hypertension and CKD along with COPD. She continues have shortness or breath and uses inhalers. 10/03/23; Has increased urine output 03/04/2024. No new renal issues today. She has had difficulty swallowing and underwent barium swallow. [facility] Medical History Asthma-COPD overlap syndrome Gout attack Lymphadenopathy, cervical Obesity Asthma COPD (chronic obstructive pulmonary disease) Fusion of toes of right foot Right humeral fracture Ovarian cancer C. difficile colitis Breast cancer Surgical History H/O colonoscopy H/O lymph node biopsy Hx of cataract surgery History of tonsillectomy and adenoidectomy H/O hysterectomy for benign disease History of total bilateral knee replacement H/O kyphoplasty Family History Father No problems noted. Mother Breast cancer Sister Breast cancer Social History Household Members: Children Housing: House Alcohol intake: never Patient Tobacco Use Status: Former Tobacco user Substance Use Type: Marijuana service: No Current occupational status: retired Physical Exam Vital Signs: Last Vital Signs Pulse 86 03/04/24 10:35 BP 122/72 03/04/24 10:35 Pulse Ox 92 03/04/24 10:35 Oxygen Delivery Method Room Air 03/04/24 10:35 BMI result Body Mass Index 39.6 Const General: comfortable; No acute distress Orientation/consciousness: patient oriented x3 Eyes General: appearance normal, both eyes and all related structures Visual Dukes: normal visual dukes by confrontation Neck Neck: Yes supple and Yes no JVD Resp Effort & Inspection: normal respiratory effort and respiratory effort not decreased Auscultation: rhonchi Cardio Palpation: no palpable S3 and no palpable S4 Heart sounds: no rubs GI Inspection: Yes normal to inspection Palpation (GI): Soft to palpation Percussion: Yes normal to percussion Auscultation: normal bowel sounds General: Yes no CVA tenderness Back/Spine/Pelvis Back: no CVA tenderness Skin General skin exam: no petechiae and no purpura Neuro General: patient oriented x3 and no focal motor deficits Extrem General: No clubbing and No edema Results Reviewed Nephrology Results: Hgb 12.8 g/dl (12.0-16.0) 11/23/20 WBC 7.1 X10*3/uL (4.8-10.8) 11/23/20 Plt Count 239 X10*3/uL (160-400) 11/23/20 Sodium 140 mmol/L (135-145) 11/23/20 Potassium 4.1 mmol/L (3.3-5.1) 11/23/20 Chloride 104 mmol/L (96-108) 11/23/20 Carbon Dioxide 29 mmol/L (22-29) 11/23/20 BUN 22 mg/dL (9-16) H 11/23/20 Creatinine 1.58 mg/dL (0.5-1.4) H 11/23/20 Calcium 9.2 mg/dL (8.4-10.2) 11/23/20 Urine Protein Trace mg/dL (Neg-Trace) 02/26/24 Assessment & Plan Assessment & Plan (1) CKD (chronic kidney disease): Code(s): N18.9 - Chronic kidney disease, unspecified Category: Medical Plan: CKD in a setting of longstanding hypertension. Cr is better at 1.23 Renal function remains stable (2) Hypercalcemia: Code(s): E83.52 - Hypercalcemia Category: Medical Plan: Repeat calcium is better SPEP - NO MCGP DC Vit D supplement (3) Hypertension: Code(s): I10 - Essential (primary) hypertension Category: Medical Plan: Blood pressure has been acceptable. check blood pressure at home if possible. Continue with low-salt diet. (4) Asthma-COPD overlap syndrome: Code(s): J44.9 - Chronic obstructive pulmonary disease, unspecified Category: Medical Plan: Follow-up with Pulmonary Plan Dysphagia. Is GI follow-up Orders: Orders Complete Blood Count no Diff Today E83.52 - Hypercalcemia, N18.9 - Chronic kidney disease, unspecified Urine Culture Today E83.52 - Hypercalcemia, N18.9 - Chronic kidney disease, unspecified Parathyroid Hormone Intact Today E83.52 - Hypercalcemia Comprehensive Met. Panel Today E83.52 - Hypercalcemia, N18.9 - Chronic kidney disease, unspecified Coding Level of Care Code Est Pt Level 4 (56378) Diagnoses CKD (chronic kidney disease) N18.9 Hypercalcemia E83.52 Hypertension I10 Asthma-COPD overlap syndrome J44.9
== END 2024-03-04 11:03 | disposition home or self-care (01) ==
PROVIDERS: PCP Internal Medicine; Visit Provider Internal Medicine Hypertension Specialist
DX: I12.9 Hypertensive chronic kidney disease with stage 1 through stage 4 chronic kidney disease, or unspecified chronic kidney disease (principal); N18.9 Chronic kidney disease, unspecified; E83.52 Hypercalcemia; J44.9 Chronic obstructive pulmonary disease, unspecified
CPT/HCPCS: 99214

== ENCOUNTER → 2024-03-04 10:36 | Outpatient (BNVA) | payer MEDICARE, SELFPAY | PROVIDERS: PCP Internal Medicine; Visit Provider Internal Medicine Hypertension Specialist | DX: I12.9 Hypertensive chronic kidney disease with stage 1 through stage 4 chronic kidney disease, or unspecified chronic kidney disease (principal); N18.9 Chronic kidney disease, unspecified; E83.52 Hypercalcemia; J44.9 Chronic obstructive pulmonary disease, unspecified | CPT/HCPCS: 99212 ==

== ENCOUNTER 2024-03-13 11:55 | Outpatient (AMB) | payer MEDICARE, SELFPAY ==
[2024-03-13 12:05] VITALS: BP 147/89; PULSE 83; BMI 38.7
--- NOTE | 2024-03-13 12:05 | A.OFFVIS_ITS ---
Vital Signs 3 03/13/24 12:05 Height 4 ft 11 in Weight 191 lb 12.835 oz BMI 38.7 BP 147/89 H Blood Pressure Location Lt brachial Position Sitting Pulse 83 Intake Visit Reasons: follow up Allergies adhesive [ADHESIVE] Allergy (Unknown, Verified 04/12/24 11:06) UNKNOWN codeine [CODEINE] Allergy (Unknown, Verified 04/12/24 11:06) UNKNOWN, rash fish derived [FISH] Allergy (Unknown, Verified 04/12/24 11:06) HIVES gabapentin Allergy (Unknown, Verified 04/12/24 11:06) severe urinary incont. hydrocodone [Vicodin] Allergy (Unknown, Verified 04/12/24 11:06) Unknown Iodinated Contrast Media [IV Dye, Iodine Containing] Allergy (Unknown, Verified 04/12/24 11:06) HIVES nitrofurantoin [Nitrofurantoin] Allergy (Unknown, Verified 04/12/24 11:06) HIVES Penicillins [PENICILLINS] Allergy (Unknown, Verified 04/12/24 11:06) RASH Sulfa (Sulfonamide Antibiotics) [SULFA (SULFONAMIDE ANTIBIOTICS)] Allergy (Unknown, Verified 04/12/24 11:06) RASH valsartan [From DIOVAN] Allergy (Unknown, Verified 04/12/24 11:06) HIVES vancomycin [VANCOMYCIN] Allergy (Unknown, Verified 04/12/24 11:06) RASH ibuprofen [IBUPROFEN] Adverse Reaction (Unknown, Verified 04/12/24 11:06) UNKNOWN HPI HPI follow up: Details: Assessment & Plan (1) Irritable bowel syndrome with diarrhea: Code(s): K58.0 - Irritable bowel syndrome with diarrhea Plan: She does not want any more pills, she does not want the sucralfate anymore and stopped it. She is very frustrated with the lack of progress in her bowel condition and many of her other medical conditions. She feels that none of the problems are getting solved, and she is tired of taking medications. She has a poor understanding of the fact that we can not reverse the process of aging and there are many disorders that need to be treated with chronic mediations. She thinks that all her doctors should get together in a room and discuss my conditions to find out what is wrong. Which is not a practical approach. She also has problems with chronic pain and is frustrated that her opioid medications can not be increased. So, I will have her follow with her PCP for all further care and refills of her omeprazole and she can return to our service if she wishes. (2) GERD (gastroesophageal reflux disease): Code(s): K21.9 - Gastro-esophageal reflux disease without esophagitis (3) Gallstones: Comment: negative HIDA scan Code(s): K80.20 - Calculus of gallbladder without cholecystitis without obstruction TODAY'S VISIT She is here today with her son, Mehdi who is supportive. She is having a lot of issues. Her bowel irritability continues although it has not as bad as it was in the past. She is to have to wear a full diaper now she can get away with a pad although she still has episodes of diarrhea and fecal urgency. She really does not want to take a bunch of pills, and she has no longer taking the imipramine. She continues to have abdominal pain across the upper abdomen that is sometimes relieved with defecation but sometimes not. 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 This really does point towards under controlled GERD. Her primary care provider had reduced her to 1 omeprazole every other day, and I disagree with this treatment since she is obviously showing sequelae of poorly treated GERD and could be at risk for esophageal cancer. Because of the bowel problems I am going to switch her to pantoprazole to get away from the possible diarrheal class affective omeprazole. We are going to get an EGD since she likely needs dilation although it also shows very disorganized peristalsis on the barium swallow. It is hard to say if this is a primary dysfunction or whether this is secondary to poorly controlled GERD that is driving the disorganization. We will certainly find out if better control of the GERD improves her swallowing. She does have a lot of trouble with nausea and belching up gas. She is taking prochlorperazine right now for this. She also has a very dry mouth and throat, likely r/t medication s/e. Will get an EGD to see if dilation will help and for further diagnostic reasons. I will see her after the EGD. [facility] Medical History Asthma-COPD overlap syndrome Gout attack Lymphadenopathy, cervical Obesity Asthma COPD (chronic obstructive pulmonary disease) Fusion of toes of right foot Right humeral fracture Ovarian cancer C. difficile colitis Breast cancer Surgical History H/O colonoscopy H/O lymph node biopsy Hx of cataract surgery History of tonsillectomy and adenoidectomy H/O hysterectomy for benign disease History of total bilateral knee replacement H/O kyphoplasty Family History Father No problems noted. Mother Breast cancer Sister Breast cancer Social History Household Members: Children Housing: House Alcohol intake: never Patient Tobacco Use Status: Former Tobacco user Substance Use Type: Marijuana service: No Current occupational status: retired Review of Systems Const Denies fatigue, Denies fever(s), Denies night sweats, Denies poor appetite and Denies weight loss ENT Reports Normal hearing present, Reports dysphagia, Denies odynophagia, Denies throat swelling and Denies tongue swelling Card Reports no additional complaints Resp Reports no additional complaints GI Details: Reports abdominal pain, Denies melena, Denies bloating, Denies hematochezia, Denies constipation, Denies GI cramping, Reports dysphagia, Denies excessive flatus, Denies early satiety, Reports heartburn, Reports diarrhea, Denies nausea, Denies odynophagia, Denies vomiting and Denies hematemesis Musc Reports abnormal gait and Reports back pain Skin/Breast Denies pruritus, Denies lesions, Denies rash and Denies jaundice Neuro Reports Normal hearing present, Denies Abnormal speech present and Reports abnormal gait Psych Reports anxiety Endo Denies fatigue Aller/Immun Denies throat swelling and Denies tongue swelling Physical Exam Vital Signs: Last Vital Signs Pulse 83 03/13/24 12:05 BP 147/89 H 03/13/24 12:05 BMI result Body Mass Index 38.7 Const General: cooperative, no acute distress, well developed and well groomed Nutritional Appearance: well nourished and obese Orientation/consciousness: oriented to person, oriented to place and oriented to time Limitations: No language barrier and ambulation with walker HEENT Head: Yes normocephalic and Yes atraumatic Eyes General: appearance normal, both eyes and all related structures Pupils: Equal, round and reactive pupils present Neck Neck: Yes normal visual inspection and Yes no lymphadenopathy Thyroid: Thyroid normal Resp Effort & Inspection: normal respiratory effort and able to speak in complete sentences Auscultation: clear to auscultation bilaterally Cardio Rate: regular rate Rhythm: regular rhythm Heart sounds: Normal, physiologic split S2 sound present Peripheral pulses: radial pulses present and posterior tibial pulses present GI Inspection: No distended, Yes Abdominal panniculus present and Yes obesity Palpation (GI): Soft to palpation, nontender, no guarding, not rigid and No hepatosplenomegaly present Percussion: Yes normal to percussion Auscultation: normal bowel sounds Rectal Exam - Female: deferred Abdomen image: 2 1. surgical scar Skin General skin exam: no rashes or lesions noted, turgor normal, dry skin, no jaundice, No spider nevi and no striae Rashes: no rashes Nails: normal Neuro General: oriented to person, oriented to place and oriented to time Cranial nerves: Yes Equal, round and reactive pupils present and Yes Normal hearing present Speech: No Abnormal speech present Extrem General: Yes normal to inspection, No clubbing, No cyanosis and No edema Psych Appearance: grossly normal and well kempt Mental Status: mental status grossly normal Speech and movement: Normal speech and movement present Affect: normal affect Attitude: cooperative Thought process: Normal thought process present and not confabulating Thought content: Normal thought content present Insight: Limited insight present (Psych) Judgement: Limited judgement present (Psych) Results Reviewed Results Reviewed: Laboratory Tests 09/26/23 03/25/24 09:36 11:15 WBC 9.0 Hgb 13.6 Hct 43.5 MCV 100.9 H MCH 31.6 MCHC 31.3 Plt Count 294 Estimated GFR 32 Total Bilirubin 0.5 AST 20 ALT 15 Alkaline Phosphatase 93 TSH 2.21 Assessment & Plan Assessment & Plan (1) GERD (gastroesophageal reflux disease): Code(s): K21.9 - Gastro-esophageal reflux disease without esophagitis Category: Medical (2) Dysphagia: Code(s): R13.10 - Dysphagia, unspecified Category: Medical Plan She is here today with her son, Mehdi who is supportive. She is having a lot of issues. Her bowel irritability continues although it has not as bad as it was in the past. She is to have to wear a full diaper now she can get away with a pad although she still has episodes of diarrhea and fecal urgency. She really does not want to take a bunch of pills, and she has no longer taking the imipramine. She continues to have abdominal pain across the upper abdomen that is sometimes relieved with defecation but sometimes not. 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 This really does point towards under controlled GERD. Her primary care provider had reduced her to 1 omeprazole every other day, and I disagree with this treatment since she is obviously showing sequelae of poorly treated GERD and could be at risk for esophageal cancer. Because of the bowel problems I am going to switch her to pantoprazole to get away from the possible diarrheal class affective omeprazole. We are going to get an EGD since she likely needs dilation although it also shows very disorganized peristalsis on the barium swallow. It is hard to say if this is a primary dysfunction or whether this is secondary to poorly controlled GERD that is driving the disorganization. We will certainly find out if better control of the GERD improves her swallowing. She does have a lot of trouble with nausea and belching up gas. She is taking prochlorperazine right now for this. She also has a very dry mouth and throat, likely r/t medication s/e. Will get an EGD to see if dilation will help and for further diagnostic reasons. I will see her after the EGD. Orders: Orders 2 EGD with Yee - GI Use Only 03/13/24 R13.10 - Dysphagia, unspecified, K21.9 - Gastro-esophageal reflux disease without esophagitis Medications: New 2 pantoprazole (Protonix) 40 mg PO DAILY 30 tabs 6RF 30 days Discontinued 2 imipramine HCl Discontinued Reason: Doctor's Order 20 mg (2 x 10 mg) PO DAILY 60 tabs 6RF K58.0 - Irritable bowel syndrome with diarrhea Coding Level of Care Code Est Pt Level 3 (78522) Diagnoses GERD (gastroesophageal reflux disease) K21.9 Dysphagia R13.10
--- NOTE | 2024-03-13 12:05 | MHC.OFFVIS ---
Vital Signs 03/13/24 12:05 Height 4 ft 11 in Weight 191 lb 12.835 oz BMI 38.7 BP 147/89 H Blood Pressure Location Lt brachial Position Sitting Pulse 83 Intake Visit Reasons: follow up Intake Note: Joelle presents to in office visit today in follow up of IBS. CC: Patient states that she is having a hard time swallowing and her breathing. She also c/o nausea, gagging, chocking on water, dry throat. Per patient she sometimes gets abd pain when she needs to moves her BM. Also she reports heartburn, she is taking Omeprazole every other day and a Tums with it to alleviate symptoms. Per patient there are sometimes traces of blood when she wipes. Allergies adhesive [ADHESIVE] Allergy (Unknown, Verified 03/13/24 12:11) UNKNOWN codeine [CODEINE] Allergy (Unknown, Verified 03/13/24 12:11) UNKNOWN, rash fish derived [FISH] Allergy (Unknown, Verified 03/13/24 12:11) HIVES gabapentin Allergy (Unknown, Verified 03/13/24 12:11) severe urinary incont. hydrocodone [Vicodin] Allergy (Unknown, Verified 03/13/24 12:11) Unknown Iodinated Contrast Media [IV Dye, Iodine Containing] Allergy (Unknown, Verified 03/13/24 12:11) HIVES nitrofurantoin [Nitrofurantoin] Allergy (Unknown, Verified 03/13/24 12:11) HIVES Penicillins [PENICILLINS] Allergy (Unknown, Verified 03/13/24 12:11) RASH Sulfa (Sulfonamide Antibiotics) [SULFA (SULFONAMIDE ANTIBIOTICS)] Allergy (Unknown, Verified 03/13/24 12:11) RASH valsartan [From DIOVAN] Allergy (Unknown, Verified 03/13/24 12:11) HIVES vancomycin [VANCOMYCIN] Allergy (Unknown, Verified 03/13/24 12:11) RASH ibuprofen [IBUPROFEN] Adverse Reaction (Unknown, Verified 03/13/24 12:11) UNKNOWN [facility] Medical History Asthma-COPD overlap syndrome Gout attack Lymphadenopathy, cervical Obesity Asthma COPD (chronic obstructive pulmonary disease) Fusion of toes of right foot Right humeral fracture Ovarian cancer C. difficile colitis Breast cancer Surgical History H/O colonoscopy H/O lymph node biopsy Hx of cataract surgery History of tonsillectomy and adenoidectomy H/O hysterectomy for benign disease History of total bilateral knee replacement H/O kyphoplasty Family History Father No problems noted. Mother Breast cancer Sister Breast cancer Social History Household Members: Children Housing: House Alcohol intake: never Patient Tobacco Use Status: Former Tobacco user Substance Use Type: Marijuana service: No Current occupational status: retired Physical Exam Vital Signs: Last Vital Signs Pulse 83 03/13/24 12:05 BP 147/89 H 03/13/24 12:05 BMI result Body Mass Index 38.7 Coding
== END 2024-03-13 12:55 | disposition home or self-care (01) ==
PROVIDERS: PCP Internal Medicine; Visit Provider Nurse Practitioner
DX: K21.9 Gastro-esophageal reflux disease without esophagitis (principal); R13.10 Dysphagia, unspecified
CPT/HCPCS: 99213

== ENCOUNTER → 2024-03-13 11:55 | Outpatient (BNVA) | payer MEDICARE, SELFPAY | PROVIDERS: PCP Internal Medicine; Visit Provider Nurse Practitioner | DX: K21.9 Gastro-esophageal reflux disease without esophagitis (principal); R13.10 Dysphagia, unspecified | CPT/HCPCS: 99212 ==

== ENCOUNTER 2024-03-20 10:52 | Outpatient (REF) | payer MEDICARE, SELFPAY ==
[2024-03-20 13:02] LABS: C Reactive Protein 0.46 mg/dL (< or = 0.50)
[2024-03-30 19:33] LABS: Calprotectin, Fecal 412 mcg/g
== END 2024-03-20 10:53 | disposition home or self-care (01) ==
LOC: HO.LAB 10:52
PROVIDERS: PCP Internal Medicine; Visit Provider Nurse Practitioner
DX: R13.10 Dysphagia, unspecified (principal); K21.9 Gastro-esophageal reflux disease without esophagitis; K22.10 Ulcer of esophagus without bleeding; K52.9 Noninfective gastroenteritis and colitis, unspecified
CPT/HCPCS: 36415; 83993; 86140; 99212

== ENCOUNTER 2024-03-20 10:52 | Outpatient (AMB) | payer MEDICARE, SELFPAY ==
--- NOTE | 2024-03-20 10:54 | MHC.OFFVIS ---
Vital Signs 03/20/24 11:02 Height 4 ft 11 in Weight 194 lb 0.108 oz BMI 39.2 BP 144/83 H Blood Pressure Location Rt brachial Position Sitting Intake Visit Reasons: Discuss EGD Intake Note: Joelle returns to in office visit today to discuss EGD. CC: Patient states that she has some questions before the EGD about medications and some other concerns. She c/o heartburn and nausea. Director Surface Transportation Required: No Accompanied by: Self / Same As Patient Allergies adhesive [ADHESIVE] Allergy (Unknown, Verified 03/20/24 11:08) UNKNOWN codeine [CODEINE] Allergy (Unknown, Verified 03/20/24 11:08) UNKNOWN, rash fish derived [FISH] Allergy (Unknown, Verified 03/20/24 11:08) HIVES gabapentin Allergy (Unknown, Verified 03/20/24 11:08) severe urinary incont. hydrocodone [Vicodin] Allergy (Unknown, Verified 03/20/24 11:08) Unknown Iodinated Contrast Media [IV Dye, Iodine Containing] Allergy (Unknown, Verified 03/20/24 11:08) HIVES nitrofurantoin [Nitrofurantoin] Allergy (Unknown, Verified 03/20/24 11:08) HIVES Penicillins [PENICILLINS] Allergy (Unknown, Verified 03/20/24 11:08) RASH Sulfa (Sulfonamide Antibiotics) [SULFA (SULFONAMIDE ANTIBIOTICS)] Allergy (Unknown, Verified 03/20/24 11:08) RASH valsartan [From DIOVAN] Allergy (Unknown, Verified 03/20/24 11:08) HIVES vancomycin [VANCOMYCIN] Allergy (Unknown, Verified 03/20/24 11:08) RASH ibuprofen [IBUPROFEN] Adverse Reaction (Unknown, Verified 03/20/24 11:08) UNKNOWN HPI HPI Discuss EGD: Details: Assessment & Plan (1) Irritable bowel syndrome with diarrhea: Code(s): K58.0 - Irritable bowel syndrome with diarrhea Plan: She does not want any more pills, she does not want the sucralfate anymore and stopped it. She is very frustrated with the lack of progress in her bowel condition and many of her other medical conditions. She feels that none of the problems are getting solved, and she is tired of taking medications. She has a poor understanding of the fact that we can not reverse the process of aging and there are many disorders that need to be treated with chronic mediations. She thinks that all her doctors should get together in a room and discuss my conditions to find out what is wrong. Which is not a practical approach. She also has problems with chronic pain and is frustrated that her opioid medications can not be increased. So, I will have her follow with her PCP for all further care and refills of her omeprazole and she can return to our service if she wishes. (2) GERD (gastroesophageal reflux disease): Code(s): K21.9 - Gastro-esophageal reflux disease without esophagitis (3) Gallstones: Comment: negative HIDA scan Code(s): K80.20 - Calculus of gallbladder without cholecystitis without obstruction TODAY'S VISIT Pt here to discuss EGD that was ordered for dysphagia, cervical web and cricopharyngeal narrowing. She is not having sufficient HB relief with pantoprazole 4mg qd, but her diarrhea and fecal incontinence is improved. she still has some rectal leakage. 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 So far she has pleased with the resolution of the rectal incontinence so now we need to strike a balance to get her heartburn better controlled. Because she does have a history of right-sided colitis of indeterminate origin at her last colonoscopy done by Dr. Harper, with an inconclusive biopsy, I think will get a CT enterography to see if this any reason to suspect inflammatory bowel disease. She did have C diff at that time, but I am uncertain whether this may have just represented colonization since we were not the service treating her at this time many years ago. Return office visit in 6 weeks [facility] Medical History Asthma-COPD overlap syndrome Gout attack Lymphadenopathy, cervical Obesity Asthma COPD (chronic obstructive pulmonary disease) Fusion of toes of right foot Right humeral fracture Ovarian cancer C. difficile colitis Breast cancer Surgical History H/O colonoscopy H/O lymph node biopsy Hx of cataract surgery History of tonsillectomy and adenoidectomy H/O hysterectomy for benign disease History of total bilateral knee replacement H/O kyphoplasty Family History Father No problems noted. Mother Breast cancer Sister Breast cancer Social History Household Members: Children Housing: House Alcohol intake: never Patient Tobacco Use Status: Former Tobacco user Substance Use Type: Marijuana service: No Current occupational status: retired Review of Systems Const Denies fatigue, Denies fever(s), Denies night sweats, Denies poor appetite and Denies weight loss Eyes Details: glasses Reports requires corrective lenses ENT Reports Normal hearing present, Denies dental pain, Reports dysphagia, Denies hearing loss, Denies mouth pain, Denies odynophagia, Denies throat swelling, Denies tongue swelling and Reports other (Dentition adequate) Card Reports no additional complaints and Reports dyspnea on exertion Resp Reports dyspnea on exertion GI Details: Denies abdominal pain, Denies melena, Reports bloating, Denies hematochezia, Denies constipation, Reports GI cramping, Reports dysphagia, Denies excessive flatus, Denies early satiety, Reports heartburn, Reports diarrhea, Denies nausea, Denies odynophagia, Denies vomiting and Denies hematemesis Reports urinary incontinence and Reports urinary urgency Musc Reports abnormal gait and Reports arthralgias Skin/Breast Denies pruritus, Denies lesions, Denies rash and Denies jaundice Neuro Reports Normal hearing present, Denies Abnormal speech present and Reports abnormal gait Psych Reports anxiety Endo Denies fatigue Aller/Immun Denies throat swelling and Denies tongue swelling Physical Exam Vital Signs: Last Vital Signs BP 144/83 H 03/20/24 11:02 BMI result Body Mass Index 39.2 Const General: cooperative, no acute distress, well developed and well groomed Nutritional Appearance: well nourished and obese Orientation/consciousness: oriented to person, oriented to place and oriented to time Limitations: No language barrier, ambulation with cane and ambulation with walker HEENT Head: Yes normocephalic and Yes atraumatic Eyes General: appearance normal, both eyes and all related structures Pupils: Equal, round and reactive pupils present Neck Neck: Yes normal visual inspection and Yes no lymphadenopathy Thyroid: Thyroid normal Resp Effort & Inspection: normal respiratory effort and able to speak in complete sentences Auscultation: clear to auscultation bilaterally Cardio Rate: regular rate Rhythm: regular rhythm Heart sounds: Normal, physiologic split S2 sound present Peripheral pulses: radial pulses present and posterior tibial pulses present GI Inspection: No distended, Yes Abdominal panniculus present and Yes obesity Palpation (GI): Soft to palpation, nontender, no guarding, not rigid and No hepatosplenomegaly present Percussion: Yes normal to percussion Auscultation: normal bowel sounds Rectal Exam - Female: deferred Skin General skin exam: no rashes or lesions noted, turgor normal, skin not dry, no jaundice, No spider nevi and no striae Rashes: no rashes Nails: normal Neuro General: oriented to person, oriented to place and oriented to time Cranial nerves: Yes Equal, round and reactive pupils present and Yes Normal hearing present Speech: No Abnormal speech present Extrem General: Yes normal to inspection, No clubbing, No cyanosis and No edema Psych Appearance: grossly normal and well kempt Mental Status: mental status grossly normal Speech and movement: Normal speech and movement present Affect: normal affect Attitude: cooperative Thought process: Normal thought process present and not confabulating Thought content: Normal thought content present Insight: Limited insight present (Psych) and Poor insight present (Psych) Judgement: Limited judgement present (Psych) and Poor judgement present (Psych) Assessment & Plan Assessment & Plan (1) Dysphagia: Code(s): R13.10 - Dysphagia, unspecified Category: Medical (2) GERD (gastroesophageal reflux disease): Code(s): K21.9 - Gastro-esophageal reflux disease without esophagitis Category: Medical (3) Erosive esophagitis: Code(s): K22.10 - Ulcer of esophagus without bleeding Category: Medical (4) Diarrhea: Code(s): R19.7 - Diarrhea, unspecified Category: Medical (5) Colitis: Code(s): K52.9 - Noninfective gastroenteritis and colitis, unspecified Category: Medical Plan Pt here to discuss EGD that was ordered for dysphagia, cervical web and cricopharyngeal narrowing. She is not having sufficient HB relief with pantoprazole 4mg qd, but her diarrhea and fecal incontinence is improved. she still has some rectal leakage. 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 So far she has pleased with the resolution of the rectal incontinence so now we need to strike a balance to get her heartburn better controlled. Because she does have a history of right-sided colitis of indeterminate origin at her last colonoscopy done by Dr. Harper, with an inconclusive biopsy, I think will get a CT enterography to see if this any reason to suspect inflammatory bowel disease. She did have C diff at that time, but I am uncertain whether this may have just represented colonization since we were not the service treating her at this time many years ago. Return office visit in 6 weeks Orders: Orders Calprotectin, Fecal Today K52.9 - Noninfective gastroenteritis and colitis, unspecified, R19.7 - Diarrhea, unspecified CT enterography Today K52.9 - Noninfective gastroenteritis and colitis, unspecified, R19.7 - Diarrhea, unspecified C Reactive Protein Today K52.9 - Noninfective gastroenteritis and colitis, unspecified, R19.7 - Diarrhea, unspecified Medications: New rabeprazole (AcipHex) 20 mg PO DAILY 30 tabs 6RF K21.9 - Gastro-esophageal reflux disease without esophagitis, K22.10 - Ulcer of esophagus without bleeding, R13.10 - Dysphagia, unspecified Discontinued pantoprazole (Protonix) Discontinued Reason: Doctor's Order 40 mg PO DAILY 30 days 30 tabs 6RF Coding Level of Care Code Est Pt Level 3 (83295) Diagnoses Dysphagia R13.10 GERD (gastroesophageal reflux disease) K21.9 Erosive esophagitis K22.10 Diarrhea R19.7 Colitis K52.9
[2024-03-20 11:02] VITALS: BP 144/83; BMI 39.2
== END 2024-03-20 11:51 | disposition home or self-care (01) ==
PROVIDERS: PCP Internal Medicine; Visit Provider Nurse Practitioner
DX: R13.10 Dysphagia, unspecified (principal); K21.9 Gastro-esophageal reflux disease without esophagitis; K22.10 Ulcer of esophagus without bleeding; K52.9 Noninfective gastroenteritis and colitis, unspecified
CPT/HCPCS: 99213

== ENCOUNTER 2024-03-25 09:50 | Outpatient (REF) | payer MEDICARE, SELFPAY ==
[2024-03-25 12:42] LABS: Alanine Aminotransferase 15 U/L (0-31); Albumin Level 3.9 g/dL (3.5-5.0); Alkaline Phosphatase 93 U/L (39-117); Anion Gap 14 (12-20); Aspartate Amino Transferase 20 U/L (5-31); Bilirubin Total 0.5 mg/dL (0.0-1.0); Blood Urea Nitrogen 25 mg/dL (9-16); C Reactive Protein 0.52 mg/dL (< or = 0.50); Calcium 10.3 mg/dL (8.4-10.2); Carbon Dioxide 30 mmol/L (22-29); Chloride 100 mmol/L (96-108); Estimated Glomerular Filt Rate 32; Glucose Random 117 mg/dL (60-115); Potassium 4.2 mmol/L (3.3-5.1); Sodium 140 mmol/L (135-145)
[2024-03-25 13:05] LABS: Free T4 (Free Thyroxine) 0.99 ng/dL (0.71-1.85); Thyroid Stimulating Hormone 2.21 uIU/mL (0.32-4.0)
== END 2024-03-25 09:51 | disposition home or self-care (01) ==
LOC: HO.LAB 09:50
PROVIDERS: Absent Provider Internal Medicine; PCP Internal Medicine; Visit Provider Internal Medicine
DX: J44.9 Chronic obstructive pulmonary disease, unspecified (principal); I12.9 Hypertensive chronic kidney disease with stage 1 through stage 4 chronic kidney disease, or unspecified chronic kidney disease; N18.9 Chronic kidney disease, unspecified; E03.9 Hypothyroidism, unspecified
CPT/HCPCS: 36415; 80053; 84439; 84443; 86140; 94010; 99212

== ENCOUNTER 2024-03-25 09:50 | Outpatient (AMB) | payer MEDICARE, SELFPAY ==
--- NOTE | 2024-03-25 10:03 | MHC.OFFVIS ---
Vital Signs 03/25/24 10:04 Height 4 ft 11 in Weight 195 lb 1.745 oz BMI 39.4 BP 130/78 Blood Pressure Location Lt brachial Position Sitting Pulse 83 Pulse Source Pulse Oximeter Pulse Oximetry (%) 95 Oxygen Delivery Method Room Air Intake Visit Reasons: COPD Intake Note: pt is here for follow up and states she is statng she is having a lot of problems, will be having upper endoscopy on , please note if cleared. she is coughing. Undercoat Sprayer Required: No Allergies adhesive [ADHESIVE] Allergy (Unknown, Verified 03/25/24 10:11) UNKNOWN codeine [CODEINE] Allergy (Unknown, Verified 03/25/24 10:11) UNKNOWN, rash fish derived [FISH] Allergy (Unknown, Verified 03/25/24 10:11) HIVES gabapentin Allergy (Unknown, Verified 03/25/24 10:11) severe urinary incont. hydrocodone [Vicodin] Allergy (Unknown, Verified 03/25/24 10:11) Unknown Iodinated Contrast Media [IV Dye, Iodine Containing] Allergy (Unknown, Verified 03/25/24 10:11) HIVES nitrofurantoin [Nitrofurantoin] Allergy (Unknown, Verified 03/25/24 10:11) HIVES Penicillins [PENICILLINS] Allergy (Unknown, Verified 03/25/24 10:11) RASH Sulfa (Sulfonamide Antibiotics) [SULFA (SULFONAMIDE ANTIBIOTICS)] Allergy (Unknown, Verified 03/25/24 10:11) RASH valsartan [From DIOVAN] Allergy (Unknown, Verified 03/25/24 10:11) HIVES vancomycin [VANCOMYCIN] Allergy (Unknown, Verified 03/25/24 10:11) RASH ibuprofen [IBUPROFEN] Adverse Reaction (Unknown, Verified 03/25/24 10:11) UNKNOWN Medication List - Last Reconciled 03/25/24 by Caro Dobson MD albuterol sulfate 2.5 mg inhalation Q4H PRN aspirin 81 mg PO DAILY fluticasone propion-salmeterol 250-50 mcg/dose (Advair Diskus) 1 inh inhalation BID 30 days MDD SOB AND WJEEZING hydrochlorothiazide 25 mg PO DAILY levothyroxine 50 mcg PO DAILY metoprolol succinate ER 50 mg PO DAILY oxycodone 5 mg PO QID PRN prochlorperazine maleate mg PO rabeprazole (AcipHex) 20 mg PO DAILY tiotropium bromide 18 mcg inhalation DAILY 30 days tramadol 50 mg PO BID PRN Ventolin HFA 90 mcg/actuation (albuterol sulfate) 2 puffs inhalation Q6H PRN NS Do you need a note to return to daycare/school/sports/work: No HPI HPI COPD: Details: TELLO IS 83 YEARS OLD FEMALE, COMES AFTER 4 MONTHS FOR FOLLOW-UP FOR HER ASTHMA/COPD OVERLAP SYNDROME. SHE HAS BEEN DOING VERY WELL IN THE LAST 4 MONTHS WITHOUT ANY ACUTE INFECTION OR EXACERBATION. SHE CAN USE THE SPIRIVA HANDIHALER VERY EASILY NOW WITHOUT ANY PROBLEM. ALSO USES ADVAIR TWICE A DAY. SHE HARDLY NEEDS TO USE. THE RESCUE INHALER WALKS WITH A WALKER SO HER GAIT IS SLOW AND SHE DENIES ANY SHORTNESS OF BREATH ON WALKING. ON LICENSE OF [facility] Medical History Asthma-COPD overlap syndrome Gout attack Lymphadenopathy, cervical Obesity Asthma COPD (chronic obstructive pulmonary disease) Fusion of toes of right foot Right humeral fracture Ovarian cancer C. difficile colitis Breast cancer Surgical History H/O colonoscopy H/O lymph node biopsy Hx of cataract surgery History of tonsillectomy and adenoidectomy H/O hysterectomy for benign disease History of total bilateral knee replacement H/O kyphoplasty Family History Father No problems noted. Mother Breast cancer Sister Breast cancer Social History Household Members: Children Housing: House Alcohol intake: never Patient Tobacco Use Status: Former Tobacco user Substance Use Type: Marijuana service: No Current occupational status: retired Review of Systems Const All systems reviewed & are unremarkable except as noted in HPI and below Eyes Reports no additional complaints ENT Reports no additional complaints Card Denies chest pain, Denies irregular heart rhythm and Denies leg edema Resp Reports as per HPI GI Reports no additional complaints Reports no additional complaints Musc Reports abnormal gait (Needs the walker to ambulate) and Reports back pain Skin/Breast Reports system reviewed and no additional complaints, except as documented Neuro Reports abnormal gait (Needs the walker to ambulate) Psych Reports no additional complaints Endo Reports no additional complaints Physical Exam Vital Signs: Last Vital Signs Pulse 83 03/25/24 10:04 BP 130/78 03/25/24 10:04 Pulse Ox 95 03/25/24 10:04 Oxygen Delivery Method Room Air 03/25/24 10:04 BMI result Body Mass Index 39.4 Const Other: Grossly overweight General: comfortable, no acute distress, alert and awake Orientation/consciousness: patient oriented x3 HEENT Head: Yes normal to inspection General nose exam: No nasal polyps present and No nasal discharge present Face and sinus: Yes sinuses nontender Mouth: oropharynx normal Throat: Yes posterior oropharynx normal Eyes General: appearance normal, both eyes and all related structures Neck Neck: Yes normal visual inspection, Yes no lymphadenopathy (And no submandibular adenitis), Yes trachea midline and Yes no JVD Thyroid: Thyroid normal Chest Chest palpation & inspection: normal inspection of the chest, normal palpation of entire chest wall and no tenderness Resp Other: Percussion note is resonant, breath sounds are very distant with prolonged expiratory phase. No active wheezes or crepitations are heard today. Cardio Palpation: normal PMI Rate: regular rate Rhythm: regular rhythm Heart sounds: no gallops and no murmurs GI Palpation (GI): Soft to palpation, Tenderness to palpation present (GI), No hepatosplenomegaly present, Palpable mass present and Other GI palpation findings present (Abdomen is obese and somewhat protuberant) Auscultation: normal bowel sounds Back/Spine/Pelvis Thoracic/Lumbar Spine: thoracic and lumbar spine normal to inspection and thoraco-lumbar ROM limited Skin General skin exam: no rashes or lesions noted Neuro General: patient oriented x3, No gait normal (Gait unstable ,uses walker) and no focal motor deficits Cranial nerves: Yes CN's II-XII intact bilaterally Extrem General: Yes normal to inspection, Yes no clubbing, cyanosis or edema and Yes no calf tenderness Psych Appearance: grossly normal and well kempt Speech and movement: Normal speech and movement present Office Procedures Spirometry Testing Spirometry Comments: Spirometry done in the office, Dr. Dobson has the results results scanned to her chart. 55796- Spirometry Results Reviewed Results Reviewed: SPIROMETRY FVC= 54 % FEV1= 43 % FEV1/FVC= 60 FEF 25-75 = 20 % C/W SEVERE OBSTRUCTIVE AIRWAYS DISORDER Assessment & Plan Assessment & Plan (1) Asthma-COPD overlap syndrome: Comment: 83 YEARS OLD FEMALE IS A KNOWN CASE OF ADVANCED CHRONIC OBSTRUCTIVE PULMONARY DISEASE, WITH ELEMENT OF REVERSIBLE COMPONENT. PER SPIROMETRY IT IS QUITE SEVERE, BUT CLINICALLY IT IS REMAINING STABLE. THE GOAL IS TO KEEP IT STABLE AND FREE OF ANY ACUTE EXACERBATIONS. Code(s): J44.9 - Chronic obstructive pulmonary disease, unspecified Category: Medical Plan: CONTINUE ADVAIR 250-51 INHALATION B.I.D. SPIRIVA HANDIHALER 1 INHALATION DAILY ALBUTEROL HFA 2 PUFFS Q 4-6 HOURS P.R.N. AND ALTERNATIVELY ALBUTEROL 2.5 MG SOLUTION INHALATION Q 4-6 HOURS P.R.N.. DO DEEP BREATHING EXERCISES WITH PURSED LIP TECHNIQUE AT LEAST 3 TIMES A DAY. (2) Obesity: Comment: SHE IS AWARE OF THE FACT THAT SHE IS QUITE OVERWEIGHT. SHE WOULD TRY TO RESTRICT THE CALORIES INTAKE AND CONTINUE WALKING OUTDOORS MUCH SHE CAN. Code(s): E66.9 - Obesity, unspecified Category: Medical Plan: HER PAST SLEEP STUDY HAS BEEN NEGATIVE FOR SLEEP APNEA. STILL ADVISED TO KEEP HER WEIGHT UNDER CONTROL MUCH POSSIBLE. Plan * NOTE : PATIENT TOLD ME THAT SHE WOULD BE UNDERGOING UPPER ENDOSCOPIC EXAMINATION AND IF IT IS OKAY. EVEN THOUGH SHE DOES HAVE SEVERE COPD IT IS QUITE STABLE AT THIS TIME AND THERE IS NO CONTRAINDICATION TO UNDERGOING ENDOSCOPIC PROCEDURE. Orders: Orders AMB Spirometry Testing Today J44.9 - Chronic obstructive pulmonary disease, unspecified Medications: Changed From albuterol sulfate 4.1667 mg (5 mL) inhalation Q4H PRN 150 mL 0RF for wheezing J44.9 - Chronic obstructive pulmonary disease, unspecified To albuterol sulfate 2.5 mg inhalation Q4H PRN for wheezing J44.9 - Chronic obstructive pulmonary disease, unspecified Coding Level of Care Code Est Pt Level 3 (67196) Diagnoses Asthma-COPD overlap syndrome J44.9 Obesity E66.9 CPT Codes Spirometry - CPT: 86844- Spirometry ([id number])
[2024-03-25 10:04] VITALS: BP 130/78; PULSE 83; O2SAT 95; BMI 39.4
== END 2024-03-25 10:34 | disposition home or self-care (01) ==
PROVIDERS: PCP Internal Medicine; Visit Provider Internal Medicine
DX: J44.9 Chronic obstructive pulmonary disease, unspecified (principal); E66.9 Obesity, unspecified
CPT/HCPCS: 94010; 99213

== ENCOUNTER 2024-04-03 09:47 | Outpatient (REF) | payer MEDICARE, SELFPAY ==
--- NOTE | ~2024-04-03 | XR_ITS ---
EXAMINATION: X-RAY CERVICAL SPINE X-RAY RIGHT SHOULDER CLINICAL INFORMATION: Patient states neck pain, no injury, chronic pain for years, neck and right shoulder pain. COMPARISON: MR cervical spine of 12/08/2020. X-ray cervical spine 12/02/2020. Right shoulder of 05/13/2015. TECHNIQUE: 4 views of the right shoulder. 6 views of the cervical spine. FINDINGS: Cervical spine: Diffuse demineralization. Degenerative changes between the anterior arch of C1 and the odontoid. Marked degenerative changes with hypertrophic change and loss of disc space height at C4-C5, C5-C6, and C6-C7. Straightening of the normal cervical lordosis. Bilateral facet hypertrophy with neural foraminal encroachment most notable at C5-C6 levels. Right shoulder: Diffuse demineralization. Degenerative changes with possible thoracic vertebral body compression deformity on the views of the upper thoracic spine. Severe degenerative changes with subchondral sclerosis and remodeling in the glenohumeral joint. Mild degenerative changes in the acromioclavicular joint. Severe deformity and angulation of right humeral head is compatible with healing of proximal right humeral fracture noted on 05/13/2015, 04/01/2015 and 03/02/2015. Narrowing of the subacromial space with subacromial spur formation. XR/XR cervical spine 5V IMPRESSION: 1. Marked degenerative changes at C4-C7. 2. Severe degenerative changes right glenohumeral joint. 3. Severe deformity and angulation of right humeral head is compatible with healing of proximal right humeral fracture noted on 05/13/2015, 04/01/2015 and 03/02/2015. 4. Degenerative changes with possible thoracic vertebral body compression deformity on the views of the upper thoracic spine. Dedicated views of the thoracic spine recommended. This study was presented today April 03, 2024 for interpretation. Stat results provided at this time as requested by referring provider.
--- NOTE | ~2024-04-03 | XR_ITS ---
EXAMINATION: X-RAY CERVICAL SPINE X-RAY RIGHT SHOULDER CLINICAL INFORMATION: Patient states neck pain, no injury, chronic pain for years, neck and right shoulder pain. COMPARISON: MR cervical spine of 12/08/2020. X-ray cervical spine 12/02/2020. Right shoulder of 05/13/2015. TECHNIQUE: 4 views of the right shoulder. 6 views of the cervical spine. FINDINGS: Cervical spine: Diffuse demineralization. Degenerative changes between the anterior arch of C1 and the odontoid. Marked degenerative changes with hypertrophic change and loss of disc space height at C4-C5, C5-C6, and C6-C7. Straightening of the normal cervical lordosis. Bilateral facet hypertrophy with neural foraminal encroachment most notable at C5-C6 levels. Right shoulder: Diffuse demineralization. Degenerative changes with possible thoracic vertebral body compression deformity on the views of the upper thoracic spine. Severe degenerative changes with subchondral sclerosis and remodeling in the glenohumeral joint. Mild degenerative changes in the acromioclavicular joint. Severe deformity and angulation of right humeral head is compatible with healing of proximal right humeral fracture noted on 05/13/2015, 04/01/2015 and 03/02/2015. Narrowing of the subacromial space with subacromial spur formation. XR/XR shoulder RT min 2V IMPRESSION: 1. Marked degenerative changes at C4-C7. 2. Severe degenerative changes right glenohumeral joint. 3. Severe deformity and angulation of right humeral head is compatible with healing of proximal right humeral fracture noted on 05/13/2015, 04/01/2015 and 03/02/2015. 4. Degenerative changes with possible thoracic vertebral body compression deformity on the views of the upper thoracic spine. Dedicated views of the thoracic spine recommended. This study was presented today April 03, 2024 for interpretation. Stat results provided at this time as requested by referring provider.
== END 2024-04-03 09:48 | disposition home or self-care (01) ==
LOC: HO.XRAY 09:47
PROVIDERS: PCP Internal Medicine; Visit Provider Internal Medicine
DX: M54.2 Cervicalgia (principal); M25.511 Pain in right shoulder
CPT/HCPCS: 72050; 73030

== ENCOUNTER 2024-04-12 11:04 | Outpatient (AMB) | payer MEDICARE, SELFPAY ==
--- NOTE | 2024-04-12 11:05 | A.OFFVIS_ITS ---
Vital Signs 3 04/12/24 11:14 Height 4 ft 11 in Weight 195 lb 5.273 oz BMI 39.4 Pulse 80 Intake Visit Reasons: yearly breast exam Intake Note: Patient is seen in office for 6 month follow up visit, breast exam. Patient c/o:continued left breast discharge, no pain, lump or redness,on the right side had xrays due to neck lump causes pain all the way down to the left axilla, has upcoming surgery planned for 05/2024 stomach surgery mm:12/05/23 Cloth Picker Required: No Workcell Operator: Workcell Operator Present Accompanied by: Self / Same As Patient Allergies adhesive [ADHESIVE] Allergy (Unknown, Verified 04/12/24 11:06) UNKNOWN codeine [CODEINE] Allergy (Unknown, Verified 04/12/24 11:06) UNKNOWN, rash fish derived [FISH] Allergy (Unknown, Verified 04/12/24 11:06) HIVES gabapentin Allergy (Unknown, Verified 04/12/24 11:06) severe urinary incont. hydrocodone [Vicodin] Allergy (Unknown, Verified 04/12/24 11:06) Unknown Iodinated Contrast Media [IV Dye, Iodine Containing] Allergy (Unknown, Verified 04/12/24 11:06) HIVES nitrofurantoin [Nitrofurantoin] Allergy (Unknown, Verified 04/12/24 11:06) HIVES Penicillins [PENICILLINS] Allergy (Unknown, Verified 04/12/24 11:06) RASH Sulfa (Sulfonamide Antibiotics) [SULFA (SULFONAMIDE ANTIBIOTICS)] Allergy (Unknown, Verified 04/12/24 11:06) RASH valsartan [From DIOVAN] Allergy (Unknown, Verified 04/12/24 11:06) HIVES vancomycin [VANCOMYCIN] Allergy (Unknown, Verified 04/12/24 11:06) RASH ibuprofen [IBUPROFEN] Adverse Reaction (Unknown, Verified 04/12/24 11:06) UNKNOWN Medication List - Last Reconciled 04/12/24 by Shon Marmolejo MD albuterol sulfate 2.5 mg inhalation Q4H PRN aspirin 81 mg PO DAILY fluticasone propion-salmeterol 250-50 mcg/dose (Advair Diskus) 1 inh inhalation BID 30 days MDD SOB AND WJEEZING hydrochlorothiazide 25 mg PO DAILY levothyroxine 50 mcg PO DAILY metoprolol succinate ER 50 mg PO DAILY oxycodone 5 mg PO QID PRN prochlorperazine maleate mg PO rabeprazole (AcipHex) 20 mg PO DAILY tiotropium bromide 18 mcg inhalation DAILY 30 days tramadol 50 mg PO BID PRN Ventolin HFA 90 mcg/actuation (albuterol sulfate) 2 puffs inhalation Q6H PRN NS HPI Comments Details: Joelle Keller returns today for follow-up visit following an invasive ductal carcinoma of the left breast. 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 She subsequently underwent a lumpectomy with needle localization on 06/01/2015, the results of which revealed a 1.2 cm invasive ductal carcinoma with a single focus of invasive tumor, grade 1, ER/NC positive, HER2 Nancy inconclusive, with DCIS, negative margins. A sentinel node biopsy on 06/26/2015 was then performed which produced two lymph nodes negative for carcinoma ([id number]). She completed radiation therapy in August 2015 and took 5 years of tamoxifen.? She stopped her tamoxifen in September 2020. ? She reports right neck pain extending down the shoulder into the fingers. 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 This is being watched as she is not considered a good candidate for surgery.? Screening mammogram of 10/25/2023 with additional images of the left breast on 12/05/2023 revealed probably benign calcifications at the lumpectomy site left breast (BI-RADS 3). Follow-up mammogram in 6 months was recommended and [facility]. [facility] Medical History Asthma-COPD overlap syndrome Gout attack Lymphadenopathy, cervical Obesity Asthma COPD (chronic obstructive pulmonary disease) Fusion of toes of right foot Right humeral fracture Ovarian cancer C. difficile colitis Breast cancer Surgical History H/O colonoscopy H/O lymph node biopsy Hx of cataract surgery History of tonsillectomy and adenoidectomy H/O hysterectomy for benign disease History of total bilateral knee replacement H/O kyphoplasty Family History Father No problems noted. Mother Breast cancer Sister Breast cancer Social History Household Members: Children Housing: House Alcohol intake: never Patient Tobacco Use Status: Former Tobacco user Substance Use Type: Marijuana service: No Current occupational status: retired Review of Systems Const All systems reviewed & are unremarkable except as noted in HPI and below Eyes Reports no additional complaints ENT Reports no additional complaints Card Denies chest pain, Denies irregular heart rhythm and Denies leg edema Resp Reports as per HPI GI Reports no additional complaints Reports no additional complaints and Denies nipple discharge Musc Details: Shoulder pain as noted in HPI Reports abnormal gait (Needs the walker to ambulate) and Reports back pain Skin/Breast Reports system reviewed and no additional complaints, except as documented, Denies breast swelling, Denies breast skin changes, Denies breast pain, Denies breast mass and Denies nipple discharge Neuro Reports abnormal gait (Needs the walker to ambulate) Psych Reports no additional complaints Endo Reports no additional complaints Physical Exam Vital Signs: Last Vital Signs Pulse 80 04/12/24 11:14 BMI result Body Mass Index 39.4 Const General: cooperative, healthy appearing, comfortable, no acute distress, well developed, alert and awake HEENT Head: Yes normocephalic and Yes atraumatic Chest Other: Left breast: No skin change, well-healed incision in the upper outer quadrant, no nipple retraction, no nipple discharge, no palpable mass, no enlarged lymph nodes. Right breast: No skin change, no nipple retraction, no nipple discharge, no palpable mass, no enlarged lymph nodes Chest/axillae images: 2 1. Residual scar tissue upper outer quadrant left breast, no palpable mass and no enlarged lymph nodes Resp Effort & Inspection: normal respiratory effort, no cough and no stridor GI Inspection: Yes normal to inspection Skin General skin exam: no rashes or lesions noted Extrem Other: No arm edema Assessment & Plan Assessment & Plan (1) Breast cancer: Code(s): C50.919 - Malignant neoplasm of unspecified site of unspecified female breast Category: Medical Qualifiers: Breast location: upper outer quadrant of breast Estrogen receptor status: positive Laterality: left Patient sex: female Qualified Code(s): C 50.412 - Malignant neoplasm of upper-outer quadrant of left female breast; Z17.0 - Estrogen receptor positive status [ER+] Plan: 83-year-old female patient with a previous history of left breast lumpectomy and sentinel node biopsy for invasive ductal carcinoma, P T1 a N0 M0, ER/NC positive, now with 9 years following surgery. Examination today revealed no new suspicious findings in either breast with no evidence of recurrent disease. 10/25/2023 with additional images of the left breast on 12/05/2023 revealed several new calcifications near the previous biopsy site in the left breast. These were felt to be probably benign calcifications and repeat images in 6 months was recommended (BI-RADS 3). She is scheduled for the follow-up mammogram on 06/03/2024. I recommended follow-up examination in 1 year sooner p.r.n.. Coding Level of Care Code Est Pt Level 3 (29656) Diagnoses Malignant neoplasm of upper-outer quadrant of left breast in female, estrogen receptor positive C50.412; Z17.0 Breast location: upper outer quadrant of breast Estrogen receptor status: positive Laterality: left Patient sex: female
[2024-04-12 11:14] VITALS: PULSE 80; BMI 39.4
== END 2024-04-12 11:32 | disposition home or self-care (01) ==
PROVIDERS: PCP Internal Medicine; Visit Provider Surgery
DX: R92.1 Mammographic calcification found on diagnostic imaging of breast (principal); Z17.0 Estrogen receptor positive status [ER+]
CPT/HCPCS: 99213

== ENCOUNTER → 2024-04-12 11:04 | Outpatient (BNVA) | payer MEDICARE, SELFPAY | PROVIDERS: PCP Internal Medicine; Visit Provider Surgery | DX: Z85.3 Personal history of malignant neoplasm of breast (principal); Z17.0 Estrogen receptor positive status [ER+]; Z92.3 Personal history of irradiation | CPT/HCPCS: 99212 ==

== ENCOUNTER 2024-05-01 09:11 | Outpatient (REF) | payer MEDICARE, SELFPAY ==
--- NOTE | ~2024-05-01 | XR_ITS ---
EXAMINATION: XR THORACIC SPINE CLINICAL INFORMATION: Back pain. COMPARISON: Radiographs of cervical spine from 04/03/2024 and lumbar spine from 02/14/2023. CT images of the spine from 09/19/2019. TECHNIQUE: 3 views of the thoracic spine were obtained. FINDINGS: Bone density is diffusely decreased from osteopenia or osteoporosis. Chronic multilevel degenerative loss of disc heights and multilevel osteophyte formation of the visualized cervical and thoracic spine. Chronic mild hyperkyphosis of the degenerated thoracic spine. Old T7 anterior compression fracture resulting in approximately 35% anterior vertebral body height loss, similar compared to 09/19/2019. No new compression fractures. The alignment of the thoracic vertebra is well preserved. There is chronic mild dextroscoliosis of the thoracic spine. No radiographic evidence of paraspinal soft tissue mass. There is atherosclerotic calcification of the aorta. XR/XR thoracic spine 3V IMPRESSION: * Chronic multilevel discovertebral degenerative change of the visualized cervical and thoracic spine. * Chronic hyperkyphosis and mild dextroscoliosis of the thoracic spine. * There is an old compression fracture of the T7 vertebral body. No new fractures.
[2024-05-01 10:49] LABS: Hematocrit 42.3 % (37.0-47.0); Hemoglobin 13.8 g/dl (12.0-16.0); Mean Corpuscular HGB Conc 32.6 g/dl (31.0-35.0); Mean Corpuscular Hemoglobin 31.7 pg (27.0-33.0); Mean Platelet Volume 9.9 fL (9.4-12.3); Platelet Count 286 X10*3/uL (160-400); Red Blood Count 4.36 X10*6/uL (4.20-5.50); Red Cell Distribution Width 13.4 % (11.0-16.0); White Blood Count 8.1 X10*3/uL (4.8-10.8)
[2024-05-01 11:19] LABS: Alanine Aminotransferase 11 U/L (0-31); Albumin Level 3.8 g/dL (3.5-5.0); Alkaline Phosphatase 81 U/L (39-117); Anion Gap 11 (12-20); Aspartate Amino Transferase 19 U/L (5-31); Bilirubin Total 0.7 mg/dL (0.0-1.0); Blood Urea Nitrogen 22 mg/dL (9-16); Calcium 9.8 mg/dL (8.4-10.2); Carbon Dioxide 29 mmol/L (22-29); Chloride 101 mmol/L (96-108); Estimated Glomerular Filt Rate 36; Glucose Random 97 mg/dL (60-115); Potassium 3.8 mmol/L (3.3-5.1); Sodium 137 mmol/L (135-145); Total Protein 7.7 g/dL (6.5-8.0)
[2024-05-01 11:20] LABS: Parathyroid Hormone Intact 103.4 pg/mL (8.7-77.1)
[2024-05-01 11:25] LABS: Blood Urea Nitrogen 22 mg/dL (9-16); Estimated Glomerular Filt Rate 34
== END 2024-05-01 09:12 | disposition home or self-care (01) ==
LOC: HO.XRAY 09:11
PROVIDERS: Absent Provider Nurse Practitioner; PCP Internal Medicine; Referring Provider Internal Medicine Hypertension Specialist; Visit Provider Internal Medicine
DX: M54.6 Pain in thoracic spine (principal); R19.5 Other fecal abnormalities; R79.82 Elevated C-reactive protein (CRP); K52.9 Noninfective gastroenteritis and colitis, unspecified; N18.9 Chronic kidney disease, unspecified; E83.52 Hypercalcemia; Z91.09 Other allergy status, other than to drugs and biological substances; R19.7 Diarrhea, unspecified
CPT/HCPCS: 36415; 72072; 80053; 81335; 81405; 81479; 82397; 82565; 83520; 83970; 84520; 85027; 86003; 86140; 88346; 88350; 99212

== ENCOUNTER 2024-05-01 09:21 | Outpatient (AMB) | payer MEDICARE, SELFPAY ==
--- NOTE | 2024-05-01 09:30 | A.OFFVIS_ITS ---
Intake Visit Reasons: 6 week follow up Allergies adhesive [ADHESIVE] Allergy (Unknown, Verified 04/12/24 11:06) UNKNOWN codeine [CODEINE] Allergy (Unknown, Verified 04/12/24 11:06) UNKNOWN, rash fish derived [FISH] Allergy (Unknown, Verified 04/12/24 11:06) HIVES gabapentin Allergy (Unknown, Verified 04/12/24 11:06) severe urinary incont. hydrocodone [Vicodin] Allergy (Unknown, Verified 04/12/24 11:06) Unknown Iodinated Contrast Media [IV Dye, Iodine Containing] Allergy (Unknown, Verified 04/12/24 11:06) HIVES nitrofurantoin [Nitrofurantoin] Allergy (Unknown, Verified 04/12/24 11:06) HIVES Penicillins [PENICILLINS] Allergy (Unknown, Verified 04/12/24 11:06) RASH Sulfa (Sulfonamide Antibiotics) [SULFA (SULFONAMIDE ANTIBIOTICS)] Allergy (Unknown, Verified 04/12/24 11:06) RASH valsartan [From DIOVAN] Allergy (Unknown, Verified 04/12/24 11:06) HIVES vancomycin [VANCOMYCIN] Allergy (Unknown, Verified 04/12/24 11:06) RASH ibuprofen [IBUPROFEN] Adverse Reaction (Unknown, Verified 04/12/24 11:06) UNKNOWN HPI HPI 6 week follow up: Details: Assessment & Plan (1) Dysphagia: Code(s): R13.10 - Dysphagia, unspecified Category: Medical (2) GERD (gastroesophageal reflux disease): Code(s): K21.9 - Gastro-esophageal reflux disease without esophagitis Category: Medical (3) Erosive esophagitis: Code(s): K22.10 - Ulcer of esophagus without bleeding Category: Medical (4) Diarrhea: Code(s): R19.7 - Diarrhea, unspecified Category: Medical (5) Colitis: Code(s): K52.9 - Noninfective gastroenteritis and colitis, unspecified Category: Medical Plan Pt here to discuss EGD that was ordered for dysphagia, cervical web and cricopharyngeal narrowing. She is not having sufficient HB relief with pantoprazole 4mg qd, but her diarrhea and fecal incontinence is improved. she still has some rectal leakage. 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 So far she has pleased with the resolution of the rectal incontinence so now we need to strike a balance to get her heartburn better controlled. Because she does have a history of right-sided colitis of indeterminate origin at her last colonoscopy done by Dr. Harper, with an inconclusive biopsy, I think will get a CT enterography to see if this any reason to suspect inflammatory bowel disease. She did have C diff at that time, but I am uncertain whether this may have just represented colonization since we were not the service treating her at this time many years ago. Return office visit in 6 weeks Orders: Orders Calprotectin, Fecal Today K52.9 - Noninfective gastroenteritis and colitis, unspecified, R19.7 - Diarrhea, unspecified CT enterography Today K52.9 - Noninfective gastroenteritis and colitis, unspecified, R19.7 - Diarrhea, unspecified C Reactive Protein Today K52.9 - Noninfective gastroenteritis and colitis, unspecified, R19.7 - Diarrhea, unspecified Medications: New rabeprazole (AcipHex) 20 mg PO DAILY 30 tabs 6RF K21.9 - Gastro-esophageal reflux disease without esophagitis, K22.10 - Ulcer of esophagus without bleeding, R13.10 - Dysphagia, unspecified Discontinued pantoprazole (Protonix) Discontinued Reason: Doctor's Order 40 mg PO DAILY 30 days 30 tabs 6RF LABS: Laboratory Tests 03/20/24 03/25/24 20:30 11:15 C-Reactive Protein 0.52 H Stool Calprotectin [address] ENTEROGRAPHY 05/15/2024 CORRESPONDENCE On 03/20/24 @ 11:39 Russell Kellogg Wrote To [place] Per pharmacist the medications is covered by insurance. On 03/20/24 @ 11:33 AreliTara Wrote To Russell Kellogg She has failed omeprazole, famotidine, pantoprazole please see if PA needed for rabeprazole 20mg qd TODAY'S VISIT DDX ? IBD vs food allergies vs micrscopic colitis. Get genetic labs start Etocort at 6mg qam ROV 5 weeks - has CT enterogram upcoming. last scope [place] [facility] [place] records if possible; but I am unable to find any record of a colonoscopy in the past 5 years in [facility] record system. All the results were explained to the patient Return office visit in 5 weeks to go over labs and evaluate her response to Entocort. At that time we should probably consider scheduling a repeat colonoscopy for diagnostic purposes. I am also looking forward to see what the CT and tear g shows. This may help if we feel like she has to differentiate between Crohn's disease and ulcerative colitis. [facility] Medical History Asthma-COPD overlap syndrome Gout attack Lymphadenopathy, cervical Obesity Asthma COPD (chronic obstructive pulmonary disease) Fusion of toes of right foot Right humeral fracture Ovarian cancer C. difficile colitis Breast cancer Surgical History H/O colonoscopy H/O lymph node biopsy Hx of cataract surgery History of tonsillectomy and adenoidectomy H/O hysterectomy for benign disease History of total bilateral knee replacement H/O kyphoplasty Family History Father No problems noted. Mother Breast cancer Sister Breast cancer Social History Household Members: Children Housing: House Alcohol intake: never Patient Tobacco Use Status: Former Tobacco user Substance Use Type: Marijuana service: No Current occupational status: retired Review of Systems Const Denies fatigue, Denies fever(s), Denies night sweats, Denies poor appetite and Denies weight loss ENT Reports Normal hearing present, Denies dysphagia, Denies odynophagia, Denies throat swelling and Denies tongue swelling Card Reports no additional complaints Resp Reports no additional complaints GI Details: Denies abdominal pain, Denies melena, Denies bloating, Denies hematochezia, Denies constipation, Denies GI cramping, Denies dysphagia, Denies excessive fla tus, Denies early satiety, Reports heartburn, Reports diarrhea, Denies nausea, Denies odynophagia, Denies vomiting and Denies hematemesis Musc Reports abnormal gait and Reports back pain Skin/Breast Denies pruritus, Denies lesions, Denies rash and Denies jaundice Neuro Reports Normal hearing present, Denies Abnormal speech present and Reports abnormal gait Endo Denies fatigue Aller/Immun Denies throat swelling and Denies tongue swelling Physical Exam Const General: cooperative, no acute distress, well developed and well groomed Nutritional Appearance: well nourished and obese Orientation/consciousness: oriented to person, oriented to place and oriented to time Limitations: No language barrier and ambulation with walker HEENT Head: Yes normocephalic and Yes atraumatic Eyes General: appearance normal, both eyes and all related structures Pupils: Equal, round and reactive pupils present Neck Neck: Yes normal visual inspection and Yes no lymphadenopathy Thyroid: Thyroid normal Resp Effort & Inspection: normal respiratory effort and able to speak in complete sentences Auscultation: clear to auscultation bilaterally Cardio Rate: regular rate Rhythm: regular rhythm Heart sounds: Normal, physiologic split S2 sound present Peripheral pulses: radial pulses present and posterior tibial pulses present GI Inspection: No distended, No Abdominal panniculus present and Yes obesity Palpation (GI): Soft to palpation, nontender, no guarding, not rigid and No he patosplenomegaly present Percussion: Yes normal to percussion Auscultation: normal bowel sounds Rectal Exam - Female: deferred Skin General skin exam: no rashes or lesions noted, turgor normal, skin not dry, no jaundice, No spider nevi and no striae Rashes: no rashes Nails: normal Neuro General: oriented to person, oriented to place and oriented to time Cranial nerves: Yes Equal, round and reactive pupils present and Yes Normal hearing present Speech: No Abnormal speech present Extrem General: Yes normal to inspection, No clubbing, No cyanosis and No edema Psych Appearance: grossly normal and well kempt Mental Status: mental status grossly normal Speech and movement: Normal speech and movement present Affect: normal affect Attitude: cooperative Thought process: Normal thought process present and not confabulating Thought content: Normal thought content present Insight: Fair insight present (Psych) Judgement: Fair judgement present (Psych) Assessment & Plan Assessment & Plan (1) Colitis: Code(s): K52.9 - Noninfective gastroenteritis and colitis, unspecified Category: Medical (2) Elevated C-reactive protein (CRP): Code(s): R79.82 - Elevated C-reactive protein (CRP) Category: Medical (3) Elevated fecal calprotectin: Code(s): R19.5 - Other fecal abnormalities Category: Medical Plan DDX ? IBD vs food allergies vs micrscopic colitis. Get genetic labs start Etocort at 6mg qam ROV 5 weeks - has CT enterogram upcoming. last scope [place] [facility] [place] records if possible; but I am unable to find any record of a colonoscopy in the past 5 years in [facility] record system. All the results were explained to the patient Return office visit in 5 weeks to go over labs and evaluate her response to Entocort. At that time we should probably consider scheduling a repeat colonoscopy for diagnostic purposes. I am also looking forward to see what the CT and tear g shows. This may help if we feel like she has to differentiate between Crohn's disease and ulcerative colitis. Orders: Orders Rast Allergen Today K52.9 - Noninfective gastroenteritis and colitis, unspecified, R19.5 - Other fecal abnormalities, R79.82 - Elevated C-reactive protein (CRP) [facility] [employer] Today K52.9 - Noninfective gastroenteritis and colitis, unspecified, R19.5 - Other fecal abnormalities, R79.82 - Elevated C- reactive protein (CRP) [facility] IBD SGI Today K52.9 - Noninfective gastroenteritis and colitis, unspecified, R19.5 - Other fecal abnormalities, R79.82 - Elevated C-reactive protein (CRP) Medications: New budesonide DR-ER 6 mg (2 x 3 mg) PO QAM 60 ea 6RF K52.9 - Noninfective gastroenteritis and colitis, unspecified, R19.5 - Other fecal abnormalities, R79.82 - Elevated C-reactive protein (CRP) Coding Level of Care Code Est Pt Level 3 (50462) Diagnoses Colitis K52.9 Elevated C-reactive protein (CRP) R79.82 Elevated fecal calprotectin R19.5
== END 2024-05-01 09:55 | disposition home or self-care (01) ==
PROVIDERS: PCP Internal Medicine; Visit Provider Nurse Practitioner
DX: K52.9 Noninfective gastroenteritis and colitis, unspecified (principal); R79.82 Elevated C-reactive protein (CRP); R19.5 Other fecal abnormalities
CPT/HCPCS: 99213

== ENCOUNTER 2024-05-15 09:24 | Outpatient (REF) | payer MEDICARE, SELFPAY | END 2024-05-15 09:25 | disposition home or self-care (01) | LOC: HO.CT 09:24 | PROVIDERS: PCP Internal Medicine; Visit Provider Nurse Practitioner | DX: Z13.89 Encounter for screening for other disorder (principal) ==

== ENCOUNTER 2024-05-28 10:17 | Outpatient (REF) | payer MEDICARE, SELFPAY ==
--- NOTE | ~2024-05-28 | CT_ITS ---
EXAMINATION: CT ENTEROGRAPHY ABDOMEN AND PELVIS WITH CONTRAST CLINICAL INFORMATION: Noninfective gastroenteritis and colitis, unspecified. COMPARISON: CT abdomen and pelvis dated February 06, 2019. TECHNIQUE: Study performed with oral VoLumen (1500 mL) and 480 mL of water to distend the abdomen. The patient was injected with 85 mL Omnipaque 350 intravenous contrast which was administered without adverse effect. Coronal and sagittal reformatted images were obtained at the technologist's workstation. This CT examination was performed using dose optimization techniques as appropriate, variously including the following: *Automated exposure control *Adjustment of mA and/or kV according to patient size (this includes techniques or standardized protocols for targeted exams where dose is matched to indication/reason for exam; i.e. extremities or head) *Use of iterative reconstruction technique DLP: 666 mGy-cm FINDINGS: Submitted for interpretation on August 19, 2024. GASTROINTESTINAL FINDINGS: Stomach: Well-distended. No gross soft tissue lesion. There is likely peristalsis at the antrum of the stomach. Small intestine: Poorly distended degenerative lobes. Segmental areas of peristalsis versus lack of distention. Duodenum diverticula, second portion and third portion. Large intestine: Abundant stool. Numerous diverticula in the sigmoid colon and to a lesser extent descending colon. No pericolonic edema pattern. No intestinal obstruction pattern. No pneumatosis intestinalis. I do not see the appendix. No pericecal edema pattern. Additional findings: No abnormal enhancement of the vasa recta or significant mesenteric or retroperitoneal lymphadenopathy is seen. No abdominal abscess or fistulous tract demonstrated. ABDOMINAL AND PELVIC CT FINDINGS: Liver, gallbladder, biliary tract: Liver measures 13 cm. Nodular surface. Prominent caudate lobe. Portal veins and hepatic veins are patent. No intrahepatic biliary ductal dilatation. Intraluminal hyperdensity within the gallbladder. No pericholecystic fluid collection or gallbladder wall thickening. Common bile duct measures 5 m. Pancreas: Fatty density throughout the body, head and uncinate process. No focal mass. No main pancreatic ductal dilatation. No peripancreatic fluid collection. Spleen: 8 cm. No focal mass. Adrenal glands and kidneys: No nodular lesions in the adrenal glands. Multifocal, different sizes exophytic and corticomedullary junction nonenhancing fluid density lesions throughout the kidneys, the largest measures 5.7 cm on the right kidney. No hydronephrosis in either kidney. No focal renal mass. Ureters and bladder: Fluid-filled bladder. Nondistended ureters. Lymphovascular structures: No lymphadenopathy. Calcified plaques throughout the descending thoracic aorta, abdominal aorta, iliac arteries, mesenteric arteries, origin of the main renal arteries. Descending thoracic aorta diameter is 3.6 cm. No dissection in the abdominal aorta. Small fat-containing umbilical hernia and diastases abdominal rectus muscles. Bones: Old compression deformities of the vertebral bodies in the lumbar spine the most conspicuous at L4 resulting in 70% volume loss. Status post kyphoplasty/vertebroplasty procedure at L3. Multilevel thoracolumbar spondylosis. Grade 1 anterolisthesis L3-4, L4-5 and L5-S1 levels on a degenerative basis and most conspicuous at L3-4. Sclerotic abnormality in the right femoral head. Degenerative changes in the sacroiliac joints. Lung bases: No acute airspace disease in the included lung bases. CT/CT enterography IMPRESSION: No gross inflammatory bowel disease. Diverticular disease, sigmoid colon. Concerning cirrhosis without ascites. Cholelithiasis. Bilateral renal cysts. Atherosclerosis disease. 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 Pancreatic lipomatosis. Osteopenia versus osteoporosis. Multilevel thoracolumbar spondylosis. Electronically signed by: Price Hyde MD 08/19/2024 12:46 PM EST
[2024-05-28] MEDS: iohexoL 350 MG/ML 100 ML INFUS..BTL 85 ML IV (12:37)
[2024-05-28] MEDS: Sorbitol/Mannit/Xanth Imaging 500 ML LIQUID 1500 ML PO (12:39)
== END 2024-05-28 10:18 | disposition home or self-care (01) ==
LOC: HO.CT 10:17
PROVIDERS: PCP Internal Medicine; Visit Provider Nurse Practitioner
DX: K52.9 Noninfective gastroenteritis and colitis, unspecified (principal)
CPT/HCPCS: 74177; Q9967

== ENCOUNTER → 2024-05-28 10:22 | Outpatient (BNV) | payer MEDICARE, SELFPAY | PROVIDERS: PCP Internal Medicine; Visit Provider Radiology Diagnostic Radiology | DX: K52.9 Noninfective gastroenteritis and colitis, unspecified (principal) | CPT/HCPCS: 74177 ==

== ENCOUNTER 2024-06-03 10:11 | Outpatient (REF) | payer MEDICARE, SELFPAY ==
--- NOTE | ~2024-06-03 | MM_ITS ---
EXAMINATION: MM DIAGNOSTIC DIGITAL MAMMOGRAPHY, LEFT CLINICAL INFORMATION: 6 month follow-up (first) for probably benign, probably dystrophic calcifications upper outer left breast, middle one third, subjacent to lumpectomy scarring. COMPARISON: Mammography: 12/05/2023, 10/25/2023 (BI-RADS 0), 10/19/2022, 10/11/2021, 10/09/2020, and exams dating back to 2013. TECHNIQUE: Digital mammography is performed in the following views: 2-D Spot magnification left CC x2 and MLO x1 views. Computer-aided diagnosis was used for this study. FINDINGS: There are scattered areas of fibroglandular density (ACR BI-RADS breast composition Category b). Once again, there are several calcifications abutting and just inferior to the most anterior large dystrophic calcification along the lumpectomy scar, which have undergone interval evolution as would be expected for dystrophic calcification. There are a few more calcifications, appearing coarse and starting to blend with the other calcifications. These remain probably benign, and if they continue to evolve in this manner, one more follow-up would be sufficient to ensure stability. No additional suspicious findings in the upper outer left breast. MM/MM diagnostic mammo unilat LT IMPRESSION: No findings suspicious for malignancy left breast. Expected evolution of calcifications as detailed upper outer quadrant, abutting large dystrophic calcification, also likely dystrophic. 6 month interval follow-up magnification views recommended when the patient is due for bilateral screening. ASSESSMENT: BI-RADS BI-RADS 3 - Probably benign finding(s) - 6 month follow-up suggested RECOMMENDATION: 6 Month F/U This patient's information was entered into a reminder system with a target due date for their next mammogram. Electronically signed by: Michael Palm MD 06/03/2024 11:59 AM EDT
== END 2024-06-03 10:12 | disposition home or self-care (01) ==
LOC: HO.MAMMO 10:11
PROVIDERS: PCP Internal Medicine; Visit Provider Internal Medicine
DX: R92.1 Mammographic calcification found on diagnostic imaging of breast (principal)
CPT/HCPCS: 77062; 77065

== ENCOUNTER → 2024-06-03 11:00 | Outpatient (BNV) | payer MEDICARE, SELFPAY | PROVIDERS: PCP Internal Medicine; Visit Provider Radiology Diagnostic Radiology | DX: R92.1 Mammographic calcification found on diagnostic imaging of breast (principal) | CPT/HCPCS: 77065 ==

== ENCOUNTER 2024-06-05 09:53 | Outpatient (AMB) | payer MEDICARE, SELFPAY ==
[2024-06-05 11:22] VITALS: BP 141/67; BMI 38.3
--- NOTE | 2024-06-05 11:22 | MHC.OFFVIS ---
Vital Signs 06/05/24 11:22 Height 4 ft 11 in Weight 189 lb 9.561 oz BMI 38.3 BP 141/67 H Blood Pressure Location Lt brachial Position Sitting Intake Visit Reasons: 5 week follow up Intake Note: Joelle presents to in office follow up of labs. CC: Patient states that her acid reflux and heartburn is excruciating almost that she feel like she is having a heart attack. Per patient she is not sure why she is not taking the budesonide and also states that Dr. Thao added Omeprazole 20 mg every other day. Data Processor Required: No Accompanied by: Self / Same As Patient Allergies gabapentin Allergy (Severe, Verified 06/10/24 14:57) severe urinary incont. codeine [CODEINE] Allergy (Intermediate, Verified 06/10/24 14:57) Rash fish derived [FISH] Allergy (Intermediate, Verified 06/10/24 14:57) HIVES Iodinated Contrast Media [IV Dye, Iodine Containing] Allergy (Intermediate, Verified 06/10/24 14:57) HIVES nitrofurantoin [Nitrofurantoin] Allergy (Intermediate, Verified 06/10/24 14:57) HIVES Sulfa (Sulfonamide Antibiotics) [SULFA (SULFONAMIDE ANTIBIOTICS)] Allergy (Intermediate, Verified 06/10/24 14:57) RASH valsartan [From DIOVAN] Allergy (Intermediate, Verified 06/10/24 14:57) HIVES vancomycin [VANCOMYCIN] Allergy (Intermediate, Verified 06/10/24 14:57) RASH Penicillins [PENICILLINS] Allergy (Mild, Verified 06/10/24 14:57) RASH adhesive [ADHESIVE] Allergy (Unknown, Verified 06/05/24 11:28) UNKNOWN hydrocodone [Vicodin] Allergy (Unknown, Verified 06/05/24 11:28) Unknown ibuprofen [IBUPROFEN] Adverse Reaction (Unknown, Verified 06/05/24 11:28) UNKNOWN HPI HPI 5 week follow up: Details: Assessment & Plan (1) Colitis: Code(s): K52.9 - Noninfective gastroenteritis and colitis, unspecified Category: Medical (2) Elevated C-reactive protein (CRP): Code(s): R79.82 - Elevated C-reactive protein (CRP) Category: Medical (3) Elevated fecal calprotectin: Code(s): R19.5 - Other fecal abnormalities Category: Medical Plan DDX ? IBD vs food allergies vs micrscopic colitis. Get genetic labs start Etocort at 6mg qam ROV 5 weeks - has CT enterogram upcoming. last scope Pleet [facility] should get records if possible; but I am unable to find any record of a colonoscopy in the past 5 years in [facility] record system. All the results were explained to the patient Return office visit in 5 weeks to go over labs and evaluate her response to Entocort. At that time we should probably consider scheduling a repeat colonoscopy for diagnostic purposes. I am also looking forward to see what the CT and tear g shows. This may help if we feel like she has to differentiate between Crohn's disease and ulcerative colitis. Orders: Orders Rast Allergen Today K52.9 - Noninfective gastroenteritis and colitis, unspecified, R19.5 - Other fecal abnormalities, R79.82 - Elevated C-reactive protein (CRP) [facility] Today K52.9 - Noninfective gastroenteritis and colitis, unspecified, R19.5 - Other fecal abnormalities, R79.82 - Elevated C-reactive protein (CRP) [facility] Today K52.9 - Noninfective gastroenteritis and colitis, unspecified, R19.5 - Other fecal abnormalities, R79.82 - Elevated C-reactive protein (CRP) Medications: New budesonide DR-ER 6 mg (2 x 3 mg) PO QAM 60 ea 6RF K52.9 - Noninfective gastroenteritis and colitis, unspecified, R19.5 - Other fecal abnormalities, R79.82 - Elevated C-reactive protein (CRP) LABS [facility] is C/W CROHNS RAST shows food allergies to Egg whites, cows milk, wheat, shrimp, and sesame seeds CT ENTEROGRAM not read at time of this note. TODAYS VISIT There was confusion because the budesonide does not appear on her list and she is uncertain if she was told to stop taking it. She says the same of her rabeprazole saying she thinks someone told her there was an interaction with her other medications, but this is not so. Also adding to the confusion her primary care provider told her to take omeprazole every other day and clearly is not cognizant of the fact that this condition is being managed by Gastroenterology. With too many cooks in the kitchen it is no wonder that the patient is confused. She has an EGD upcoming next week and a follow up with me 06/26/2024 She has a LOT of medical confusion. She thought someone told her there was a shadow on her intestine, and that she had a hole in her esophagus. These things are not so. Her last colonoscopy was with Dr. Raygoza in the [facility] system - but I can't find the record - it was in the . Will decide if colonoscopy is needed depending on the CT enterogram. She is having worse GERD and dysphagia with pills sticking at the GE jxn. Her diarrhea has been somewhat better recently but she still has to wear a pad for incontinence. Tanya is C/W CROHNS RAST shows food allergies to Egg whites, cows milk, wheat, shrimp, and sesame seeds At point she will keep her 07/06 appointment after the EGD [facility] Medical History Asthma-COPD overlap syndrome Gout attack Lymphadenopathy, cervical Obesity Asthma COPD (chronic obstructive pulmonary disease) Fusion of toes of right foot Right humeral fracture Ovarian cancer C. difficile colitis Breast cancer Surgical History H/O colonoscopy H/O lymph node biopsy Hx of cataract surgery History of tonsillectomy and adenoidectomy H/O hysterectomy for benign disease History of total bilateral knee replacement H/O kyphoplasty Family History Father No problems noted. Mother Breast cancer Sister Breast cancer Social History Household Members: Children Housing: House Are you a primary medicare sales executive to a significant other at home: No Do you presently have visiting nurse or other home services: No Alcohol intake: never Patient Tobacco Use Status: Former Tobacco user Substance Use Type: Marijuana service: No Current occupational status: retired Review of Systems Const Denies fatigue, Denies fever(s), Denies night sweats, Denies poor appetite and Denies weight loss ENT Reports Normal hearing present, Denies dental pain, Reports dysphagia, Denies hearing loss, Denies mouth pain, Denies odynophagia, Denies throat swelling, Denies tongue swelling and Reports other (Dentition adequate) Card Reports no additional complaints Resp Reports no additional complaints GI Details: Fecal incontinence Denies abdominal pain, Denies melena, Reports bloating, Denies hematochezia, Denies constipation, Denies GI cramping, Reports dysphagia, Denies excessive flatus, Denies early satiety, Reports heartburn, Reports diarrhea, Denies nausea, Denies odynophagia, Denies vomiting and Denies hematemesis Musc Reports abnormal gait, Reports back pain, Reports joint swelling and Reports muscle weakness Skin/Breast Denies pruritus, Denies lesions, Denies rash and Denies jaundice Neuro Reports Normal hearing present, Denies Abnormal speech present, Reports abnormal gait and Reports memory loss Psych Reports memory loss Endo Denies fatigue Aller/Immun Denies throat swelling and Denies tongue swelling Physical Exam Vital Signs: Last Vital Signs BP 141/67 H 06/05/24 11:22 BMI result Body Mass Index 38.3 Const General: cooperative, no acute distress, well developed and well groomed Nutritional Appearance: well nourished and obese Orientation/consciousness: oriented to person, oriented to place and oriented to time Limitations: No language barrier and ambulation with walker HEENT Head: Yes normocephalic and Yes atraumatic Eyes General: appearance normal, both eyes and all related structures Pupils: Equal, round and reactive pupils present Neck Neck: Yes normal visual inspection and Yes no lymphadenopathy Thyroid: Thyroid normal Resp Effort & Inspection: normal respiratory effort and able to speak in complete sentences Auscultation: clear to auscultation bilaterally Cardio Rate: regular rate Rhythm: regular rhythm Heart sounds: Normal, physiologic split S2 sound present Peripheral pulses: radial pulses present and posterior tibial pulses present GI Inspection: No distended, Yes Abdominal panniculus present and Yes obesity Palpation (GI): Soft to palpation, nontender, no guarding, not rigid and No hepatosplenomegaly present Percussion: Yes normal to percussion Auscultation: normal bowel sounds Rectal Exam - Female: deferred Skin General skin exam: no rashes or lesions noted, turgor normal, skin not dry, no jaundice, No spider nevi and no striae Rashes: no rashes Nails: normal Neuro General: oriented to person, oriented to place and oriented to time Cranial nerves: Yes Equal, round and reactive pupils present and Yes Normal hearing present Speech: No Abnormal speech present Extrem General: Yes normal to inspection, No clubbing, No cyanosis and No edema Psych Appearance: grossly normal and well kempt Mental Status: mental status grossly normal Speech and movement: Normal speech and movement present Affect: normal affect Attitude: cooperative Thought process: Circumstantial thought process present and not confabulating Thought content: Normal thought content present Insight: Limited insight present (Psych) and Poor insight present (Psych) Judgement: Limited judgement present (Psych) and Poor judgement present (Psych) Assessment & Plan Assessment & Plan (1) Elevated C-reactive protein (CRP): Code(s): R79.82 - Elevated C-reactive protein (CRP) Category: Medical (2) Elevated fecal calprotectin: Code(s): R19.5 - Other fecal abnormalities Category: Medical (3) Colitis: Code(s): K52.9 - Noninfective gastroenteritis and colitis, unspecified Category: Medical (4) Multiple food allergies: Comment: RAST shows food allergies to Egg whites, cows milk, wheat, shrimp, and sesame seeds Code(s): Z91.018 - Allergy to other foods Category: Medical (5) GERD (gastroesophageal reflux disease): Code(s): K21.9 - Gastro-esophageal reflux disease without esophagitis Category: Medical (6) Dysphagia: Code(s): R13.10 - Dysphagia, unspecified Category: Medical (7) Erosive esophagitis: Code(s): K22.10 - Ulcer of esophagus without bleeding Category: Medical Plan There was confusion because the budesonide does not appear on her list and she is uncertain if she was told to stop taking it. She says the same of her rabeprazole saying she thinks someone told her there was an interaction with her other medications, but this is not so. Also adding to the confusion her primary care provider told her to take omeprazole every other day and clearly is not cognizant of the fact that this condition is being managed by Gastroenterology. (also omeprazole can cause/worsened diarrhea as a class affect) With too many cooks in the kitchen it is no wonder that the patient is confused. She has an EGD upcoming next week and a follow up with me 06/26/2024 She has a LOT of medical confusion. She thought someone told her there was a shadow on her intestine, and that she had a hole in her esophagus. These things are not so. Her last colonoscopy was with Dr. Raygoza in the [facility] system - but I can't find the record - it was in the 1989's. Will decide if colonoscopy is needed depending on the CT enterogram. She is having worse GERD and dysphagia with pills sticking at the GE jxn. Her diarrhea has been somewhat better recently but she still has to wear a pad for incontinence. Tanya is C/W CROHNS RAST shows food allergies to Egg whites, cows milk, wheat, shrimp, and sesame seeds At point she will keep her 07/06 appointment after the EGD Coding Level of Care Code Est Pt Level 4 (47179) Diagnoses Elevated C-reactive protein (CRP) R79.82 Elevated fecal calprotectin R19.5 Colitis K52.9 Multiple food allergies Z91.018 GERD (gastroesophageal reflux disease) K21.9 Dysphagia R13.10 Erosive esophagitis K22.10 Time Spent (min) 41
== END 2024-06-05 12:33 | disposition home or self-care (01) ==
PROVIDERS: PCP Internal Medicine; Visit Provider Nurse Practitioner
DX: R79.82 Elevated C-reactive protein (CRP) (principal); R19.5 Other fecal abnormalities; K52.9 Noninfective gastroenteritis and colitis, unspecified; Z91.018 Allergy to other foods; K21.9 Gastro-esophageal reflux disease without esophagitis; R13.10 Dysphagia, unspecified; K22.10 Ulcer of esophagus without bleeding
CPT/HCPCS: 99214

== ENCOUNTER → 2024-06-05 09:53 | Outpatient (BNVA) | payer MEDICARE, SELFPAY | PROVIDERS: PCP Internal Medicine; Visit Provider Nurse Practitioner | DX: K21.9 Gastro-esophageal reflux disease without esophagitis (principal); K22.10 Ulcer of esophagus without bleeding; R79.82 Elevated C-reactive protein (CRP); K52.9 Noninfective gastroenteritis and colitis, unspecified; R19.5 Other fecal abnormalities; R13.10 Dysphagia, unspecified; Z91.018 Allergy to other foods | CPT/HCPCS: 99212 ==

== ENCOUNTER 2024-06-12 06:59 | Day surgery (SDC) | payer MEDICARE, SELFPAY ==
[2024-06-10 14:49] VITALS: BMI 38.3
--- NOTE | 2024-06-11 09:00 | P.CONAN_ITS ---
Documented by User: Tomasa Cooper NP 06/11/24 09:01 HPI - Anesthesia Eval Consult details Narrative: 83yo F for Upper Endoscopy PMFSH Active Problems Active Problems: All Active Problems Multiple food allergies (Acute) Contrast media allergy (Acute) Elevated fecal calprotectin (Acute) Elevated C-reactive protein (CRP) (Acute) Colitis (Acute) Erosive esophagitis (Acute) Dysphagia (Acute) Hypercalcemia (Acute) CKD (chronic kidney disease) (Acute) Lymphadenopathy (Acute) Asthma-COPD overlap syndrome (Acute) Lymphadenopathy, cervical (Acute) Breast cancer (Chronic) Obesity (Acute) Asthma (Acute) COPD (chronic obstructive pulmonary disease) (Acute) 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 (Acute) Compression fracture of C1 vertebra (Acute) 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 difficile colitis Breast cancer Family History Family History Father No problems noted. Mother Breast cancer Sister Breast cancer Surgical History Surgical History H/O colonoscopy H/O lymph node biopsy Hx of cataract surgery History of tonsillectomy and adenoidectomy H/O hysterectomy for benign disease History of total bilateral knee replacement H/O kyphoplasty Social History Social History Household Members: Children Housing: House Are you a primary daytime caregiver to a significant other at home: No Do you presently have visiting nurse or other home services: No Alcohol intake: never Patient Tobacco Use Status: Former Tobacco user Use of substances other than those prescribed or required for medical reasons: No Substance Use Type: Marijuana Have you been hit, kicked, punched, or otherwise hurt by someone within the past year? If so, by whom?: No Are you DNR?: No Advance Directives: No Advance Directives Information Provided: Yes Recently lost weight without trying: No Nutrition Risks: No Nutritional Risk service: No Current occupational status: retired Meds Allergies Allergy/AdvReac Type Severity Reaction Status Date / Time gabapentin Allergy Severe severe Verified 06/10/24 14:57 urinary incont. codeine [CODEINE] Allergy Intermediate Rash Verified 06/10/24 14:57 fish derived [FISH] Allergy Intermediate HIVES Verified 06/10/24 14:57 Iodinated Contrast Media Allergy Intermediate HIVES Verified 06/10/24 14:57 [IV Dye, Iodine Containing] nitrofurantoin Allergy Intermediate HIVES Verified 06/10/24 14:57 [Nitrofurantoin] Sulfa (Sulfonamide Allergy Intermediate RASH Verified 06/10/24 14:57 Antibiotics) [SULFA (SULFONAMIDE ANTIBIOTICS)] valsartan [From DIOVAN] Allergy Intermediate HIVES Verified 06/10/24 14:57 vancomycin [VANCOMYCIN] Allergy Intermediate RASH Verified 06/10/24 14:57 Penicillins [PENICILLINS] Allergy Mild RASH Verified 06/10/24 14:57 adhesive [ADHESIVE] Allergy Unknown UNKNOWN Verified 06/05/24 11:28 hydrocodone [Vicodin] Allergy Unknown Unknown Verified 06/05/24 11:28 ibuprofen [IBUPROFEN] AdvReac Unknown UNKNOWN Verified 06/05/24 11:28 Home Medications ?Medication ?Instructions ?Recorded ?Confirmed ?Last Taken ?Type hydrochlorothiazide 25 mg tablet 25 mg PO DAILY 06/15/20 06/10/24 03/10/21 History levothyroxine 50 mcg tablet 50 mcg PO DAILY 06/15/20 06/10/24 03/10/21 History metoprolol succinate 50 mg 50 mg PO DAILY 06/15/20 06/10/24 03/10/21 History tablet,extended release 24 hr aspirin 81 mg tablet,delayed 81 mg PO DAILY 03/11/21 06/12/24 06/08/24 History release oxycodone 5 mg tablet 5 mg PO QID PRN Pain 11/16/21 06/10/24 Unknown History tramadol 50 mg tablet 50 mg PO BID PRN Pain 11/16/21 06/12/24 06/12/24 06:30 History prochlorperazine maleate 10 mg 10 mg PO BID PRN Nausea And 03/13/24 06/10/24 Unknown History tablet Vomiting albuterol sulfate 2.5 mg/3 mL 2.5 mg inhalation Q4H PRN for 03/25/24 06/10/24 Unknown History (0.083 %) solution for nebulization wheezing acetaminophen 500 mg tablet 1,000 mg PO ONCE PRN pain 06/05/24 06/10/24 Unknown History (Tylenol Extra Strength) albuterol sulfate 90 mcg/actuation 2 puff inhalation Q6H PRN 06/05/24 06/10/24 Unknown History aerosol inhaler Shortness Of Breath Or Wheezing fluticasone 250 mcg-salmeterol 50 1 inh inhalation BID 06/05/24 06/10/24 Unknown History mcg/dose blistr powdr for inhalation (Wixela Inhub) imipramine HCl 10 mg tablet 10 mg PO DAILY 06/05/24 06/10/24 Unknown History Exam Height,Weight and Vital Signs: Height 4 ft 11 in Weight 86 kg Assessment and Plan Assessment Anesthesia Assessment: Chart Reviewed Documented by User: Amparo Henriquez MD 06/12/24 08:18 PMFSH Past Medical History Medical History Asthma-COPD overlap syndrome Gout attack Lymphadenopathy, cervical Obesity Asthma COPD (chronic obstructive pulmonary disease) Fusion of toes of right foot Right humeral fracture Ovarian cancer C. difficile colitis Breast cancer Family History Family History Father No problems noted. Mother Breast cancer Sister Breast cancer Surgical History Surgical History H/O colonoscopy H/O lymph node biopsy Hx of cataract surgery History of tonsillectomy and adenoidectomy H/O hysterectomy for benign disease History of total bilateral knee replacement H/O kyphoplasty History of Problems with Anesthesia: No Social History Social History Household Members: Children Housing: House Are you a primary daytime caregiver to a significant other at home: No Do you presently have visiting nurse or other home services: No Alcohol intake: never Patient Tobacco Use Status: Former Tobacco user Use of substances other than those prescribed or required for medical reasons: No Substance Use Type: Marijuana Have you been hit, kicked, punched, or otherwise hurt by someone within the past year? If so, by whom?: No Are you DNR?: No Advance Directives: No Advance Directives Information Provided: Yes Recently lost weight without trying: No Nutrition Risks: No Nutritional Risk service: No Current occupational status: retired Meds Allergies Allergy/AdvReac Type Severity Reaction Status Date / Time gabapentin Allergy Severe severe Verified 06/10/24 14:57 urinary incont. codeine [CODEINE] Allergy Intermediate Rash Verified 06/10/24 14:57 fish derived [FISH] Allergy Intermediate HIVES Verified 06/10/24 14:57 Iodinated Contrast Media Allergy Intermediate HIVES Verified 06/10/24 14:57 [IV Dye, Iodine Containing] nitrofurantoin Allergy Intermediate HIVES Verified 06/10/24 14:57 [Nitrofurantoin] Sulfa (Sulfonamide Allergy Intermediate RASH Verified 06/10/24 14:57 Antibiotics) [SULFA (SULFONAMIDE ANTIBIOTICS)] valsartan [From DIOVAN] Allergy Intermediate HIVES Verified 06/10/24 14:57 vancomycin [VANCOMYCIN] Allergy Intermediate RASH Verified 06/10/24 14:57 Penicillins [PENICILLINS] Allergy Mild RASH Verified 06/10/24 14:57 adhesive [ADHESIVE] Allergy Unknown UNKNOWN Verified 06/05/24 11:28 hydrocodone [Vicodin] Allergy Unknown Unknown Verified 06/05/24 11:28 ibuprofen [IBUPROFEN] AdvReac Unknown UNKNOWN Verified 06/05/24 11:28 Home Medications ?Medication ?Instructions ?Recorded ?Confirmed ?Last Taken ?Type hydrochlorothiazide 25 mg tablet 25 mg PO DAILY 06/15/20 06/10/24 03/10/21 History levothyroxine 50 mcg tablet 50 mcg PO DAILY 06/15/20 06/10/24 03/10/21 History metoprolol succinate 50 mg 50 mg PO DAILY 06/15/20 06/10/24 03/10/21 History tablet,extended release 24 hr aspirin 81 mg tablet,delayed 81 mg PO DAILY 03/11/21 06/12/24 06/08/24 History release oxycodone 5 mg tablet 5 mg PO QID PRN Pain 11/16/21 06/10/24 Unknown History tramadol 50 mg tablet 50 mg PO BID PRN Pain 11/16/21 06/12/24 06/12/24 06:30 History prochlorperazine maleate 10 mg 10 mg PO BID PRN Nausea And 03/13/24 06/10/24 Unknown History tablet Vomiting albuterol sulfate 2.5 mg/3 mL 2.5 mg inhalation Q4H PRN for 03/25/24 06/10/24 Unknown History (0.083 %) solution for nebulization wheezing acetaminophen 500 mg tablet 1,000 mg PO ONCE PRN pain 06/05/24 06/10/24 Unknown History (Tylenol Extra Strength) albuterol sulfate 90 mcg/actuation 2 puff inhalation Q6H PRN 06/05/24 06/10/24 Unknown History aerosol inhaler Shortness Of Breath Or Wheezing fluticasone 250 mcg-salmeterol 50 1 inh inhalation BID 06/05/24 06/10/24 Unknown History mcg/dose blistr powdr for inhalation (Wixela Inhub) imipramine HCl 10 mg tablet 10 mg PO DAILY 06/05/24 06/10/24 Unknown History Exam Airway Mallampati Class: III (edentulous) TM Dist: >3cm Neck ROM: Limited Denture: Upper and Lower Loose/Missing/Broken Teeth: Yes, Upper and Lower Heart: RRR Lungs: CTA Assessment and Plan Assessment Anesthesia Assessment: Anesthesia Plan Discussed Final Anesthetic Review History of Problems with Anesthesia: No NPO: Yes ASA Class: III Final Preanesthetic Review: Meds/Allgs Chart Reviewed, Consent Obtained/Reviewed and Anes Risks/Benef Reviewed Patient Risk: Intermediate Procedure Risk: Intermediate Anesthetic Plan Anesthetic Plan: MAC: Disposition: Standard PACU
[2024-06-12] VITALS (8 sets, daily range): BP systolic 101–173; BP diastolic 61–89; PULSE 70–82; RESP 15–18; TEMP 36.3–36.4; O2SAT 97–100; BMI 40.0
--- NOTE | 2024-06-12 07:39 | MHC.SHP ---
Pre-Procedural Eval Section A - 24 Hr Update-Section A only Date of Service: 06/12/24 Section B - Complete if H&P > 30 days Chief Complaint: dysphagia,gerd, Relevant Family History (Specify if Yes): No Relevant Social History: None Present Medications: see Short Stay Collaborative assessment Medical History: Significant History (Asthma-COPD overlap syndrome Gout attack Lymphadenopathy, cervical Obesity Asthma COPD (chronic obstructive pulmonary disease) Fusion of toes of right foot Right humeral fracture Ovarian cancer C. difficile colitis Breast cancer) History of Previous Operations: Relevant previous surgery/procedure and date(s) (H/O colonoscopy H/O lymph node biopsy Hx of cataract surgery History of tonsillectomy and adenoidectomy H/O hysterectomy for benign disease History of total bilateral knee replacement H/O kyphoplasty) Allergies: Allergies Allergy/AdvReac Type Severity Reaction Status Date / Time gabapentin Allergy Severe severe Verified 06/10/24 14:57 urinary incont. codeine [CODEINE] Allergy Intermediate Rash Verified 06/10/24 14:57 fish derived [FISH] Allergy Intermediate HIVES Verified 06/10/24 14:57 Iodinated Contrast Media Allergy Intermediate HIVES Verified 06/10/24 14:57 [IV Dye, Iodine Containing] nitrofurantoin Allergy Intermediate HIVES Verified 06/10/24 14:57 [Nitrofurantoin] Sulfa (Sulfonamide Allergy Intermediate RASH Verified 06/10/24 14:57 Antibiotics) [SULFA (SULFONAMIDE ANTIBIOTICS)] valsartan [From DIOVAN] Allergy Intermediate HIVES Verified 06/10/24 14:57 vancomycin [VANCOMYCIN] Allergy Intermediate RASH Verified 06/10/24 14:57 Penicillins [PENICILLINS] Allergy Mild RASH Verified 06/10/24 14:57 adhesive [ADHESIVE] Allergy Unknown UNKNOWN Verified 06/05/24 11:28 hydrocodone [Vicodin] Allergy Unknown Unknown Verified 06/05/24 11:28 ibuprofen [IBUPROFEN] AdvReac Unknown UNKNOWN Verified 06/05/24 11:28 Review of Systems Sugical H&P ROS: Negative: Constitution, Cardiovascular, Respiratory, Neurological, Psychiatric, Hem-Onc, Allergic/Immunologic, Gastrointestinal, Genitourinary, Musculoskeletal, Integumentary, Endocrine and Eyes/Ears/Nose/Throat Exam Surgical H&P Exam: Normal: HEENT, Normal: Heart, Normal: Lungs, Normal: Extremities, Normal: Abdomen, Normal: Skin and Normal: Neurological Plan Diagnosis/Plan: Unchanged I have reviewed the history and physical and performed a pertinent physical examination on my patient. No changes have occurred unless specified. Time Spent With Patient Time: Total time managing care of this patient today ____ minutes.
[2024-06-12] MEDS: Lactated Ringers 1,000 ML 100 ML IVCONT (07:41)
--- NOTE | 2024-06-12 08:55 | W.PM.OPN ---
Operative Note Operative Note Date of Service: 06/12/24 Narrative: Procedure Description: EGD Indication: dysphagia Anesthesia: MAC FLEXIBLE TRANSORAL UPPER GASTROINTESTINAL ENDOSCOPY UPPER ENDOSCOPY Consent: Indications for the procedure and potential complications of bleeding, perforation, reaction to medications and missed diagnosis were discussed with the patient and informed consent was obtained. Instrument: Olympus GIF H 190 J mid size upper endoscope Monitoring: Vital signs and clinical assessment, continuous EKG monitoring, Pulse oximetry, Carbon Dioxide monitoring and blood pressure monitoring were done throughout the procedure. Procedure: The patient was placed in the left lateral decubitis position and pre-procedure medications were administered and a bite block was placed. The endoscope was inserted into the mouth and advanced under direct vision to the third part of duodenum. A careful inspection was made as the upper endoscope was withdrawn including a retroflexed examination of the proximal stomach; Findings and interventions are described below. Findings: Larynx:normal Esophagus: GE junction at 37 cm, diaphragm hiatus at 37 cm, balloon dilation to 20 mm at LES , no tear, then 19 mm dilation at UES with tear noted, bx taken from distal and proximal esophagus , tertiary contractions noted Stomach: Patchy erythema . Biopsies were obtained. Grade 2 flap valve on retroflexed examination of the cardia. Duodenum: Normal bulb and descending duodenum, Intervention: Biopsies as noted above, balloon dilation Impression/Findings: gastritis esophageal stricture tertiary contractions PLAN: soft diet today -advance as tolerated tomorrow magic mouthwash and tylenol as needed GERD precautions
[2024-06-12] MEDS: Acetaminophen 325 MG TABLET 975 MG PO (09:17)
[2024-06-12] MEDS: Mag&Al/Sim/Diphenhyd/Lidocaine 10 ML ORAL.SUSP PO (09:19)
--- NOTE | 2024-06-12 09:31 | PC.NURSE ---
Patient having difficulty swallowing tylenol. States she feels as if pill is stuck. Spitting up small amount of blood. Dr. Perkins made aware.
== END 2024-06-12 11:00 | disposition home or self-care (01) ==
PROVIDERS: PCP Internal Medicine; Visit Provider Internal Medicine Gastroenterology
PROC: 0DJ08ZZ Inspection of Upper Intestinal Tract, Via Natural or Artificial Opening Endoscopic (ICD-10-PCS; CPT 43235; principal; 2024-06-12 08:30)
DX: R13.10 Dysphagia, unspecified (principal); K21.9 Gastro-esophageal reflux disease without esophagitis; K22.2 Esophageal obstruction; K29.50 Unspecified chronic gastritis without bleeding; K22.4 Dyskinesia of esophagus; K44.9 Diaphragmatic hernia without obstruction or gangrene; K52.9 Noninfective gastroenteritis and colitis, unspecified; R19.5 Other fecal abnormalities; R79.82 Elevated C-reactive protein (CRP); J44.9 Chronic obstructive pulmonary disease, unspecified; Z79.899 Other long term (current) drug therapy; L23.1 Allergic contact dermatitis due to adhesives; Z88.0 Allergy status to penicillin; Z88.2 Allergy status to sulfonamides; Z88.5 Allergy status to narcotic agent; Z88.8 Allergy status to other drugs, medicaments and biological substances; Z91.018 Allergy to other foods; Z91.041 Radiographic dye allergy status; Z87.891 Personal history of nicotine dependence
CPT/HCPCS: 43249; 43239; 88305; 88313; 88342; C1726; J1596; J2704

== ENCOUNTER → 2024-06-12 06:59 | Outpatient (BNV) | payer MEDICARE, SELFPAY | PROVIDERS: PCP Internal Medicine; Visit Provider Internal Medicine Gastroenterology | DX: K22.2 Esophageal obstruction (principal); K29.70 Gastritis, unspecified, without bleeding; K22.4 Dyskinesia of esophagus | CPT/HCPCS: 43239; 43249 ==

== ENCOUNTER 2024-06-26 10:36 | Outpatient (AMB) | payer MEDICARE, SELFPAY ==
[2024-06-26 10:38] VITALS: BP 146/73; PULSE 82; BMI 39.2
--- NOTE | 2024-06-26 10:38 | MHC.OFFVIS ---
Vital Signs 06/26/24 10:38 Height 4 ft 11 in Weight 194 lb 0.108 oz BMI 39.2 BP 146/73 H Blood Pressure Location Lt brachial Position Sitting Pulse 82 Intake Visit Reasons: s/p egd dilation Intake Note: Joelle returns to in office follow up s/p EGD with dilation. CC: Patient reports doing well and denies having any GI concern today. 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 codeine [CODEINE] Allergy (Intermediate, Verified 06/26/24 10:43) Rash fish derived [FISH] Allergy (Intermediate, Verified 06/26/24 10:43) HIVES Iodinated Contrast Media [IV Dye, Iodine Containing] Allergy (Intermediate, Verified 06/26/24 10:43) HIVES nitrofurantoin [Nitrofurantoin] Allergy (Intermediate, Verified 06/26/24 10:43) HIVES Sulfa (Sulfonamide Antibiotics) [SULFA (SULFONAMIDE ANTIBIOTICS)] Allergy (Intermediate, Verified 06/26/24 10:43) RASH valsartan [From DIOVAN] Allergy (Intermediate, Verified 06/26/24 10:43) HIVES vancomycin [VANCOMYCIN] Allergy (Intermediate, Verified 06/26/24 10:43) RASH Penicillins [PENICILLINS] Allergy (Mild, Verified 06/26/24 10:43) RASH adhesive [ADHESIVE] Allergy (Unknown, Verified 06/26/24 10:43) UNKNOWN hydrocodone [Vicodin] Allergy (Unknown, Verified 06/26/24 10:43) Unknown ibuprofen [IBUPROFEN] Adverse Reaction (Unknown, Verified 06/26/24 10:43) UNKNOWN HPI HPI s/p egd dilation: Details: Assessment & Plan (1) Elevated C-reactive protein (CRP): Code(s): R79.82 - Elevated C-reactive protein (CRP) Category: Medical (2) Elevated fecal calprotectin: Code(s): R19.5 - Other fecal abnormalities Category: Medical (3) Colitis: Code(s): K52.9 - Noninfective gastroenteritis and colitis, unspecified Category: Medical (4) Multiple food allergies: Comment: RAST shows food allergies to Egg whites, cows milk, wheat, shrimp, and sesame seeds Code(s): Z91.018 - Allergy to other foods Category: Medical (5) GERD (gastroesophageal reflux disease): Code(s): K21.9 - Gastro-esophageal reflux disease without esophagitis Category: Medical (6) Dysphagia: Code(s): R13.10 - Dysphagia, unspecified Category: Medical (7) Erosive esophagitis: Code(s): K22.10 - Ulcer of esophagus without bleeding Category: Medical Plan There was confusion because the budesonide does not appear on her list and she is uncertain if she was told to stop taking it. She says the same of her rabeprazole saying she thinks someone told her there was an interaction with her other medications, but this is not so. Also adding to the confusion her primary care provider told her to take omeprazole every other day and clearly is not cognizant of the fact that this condition is being managed by Gastroenterology. (also omeprazole can cause/worsened diarrhea as a class affect) With too many cooks in the kitchen it is no wonder that the patient is confused. She has an EGD upcoming next week and a follow up with me 06/26/2024 She has a LOT of medical confusion. She thought someone told her there was a shadow on her intestine, and that she had a hole in her esophagus. These things are not so. Her last colonoscopy was with Dr. Raygoza in the [facility] system - but I can't find the record - it was in the 1989's. Will decide if colonoscopy is needed depending on the CT enterogram. She is having worse GERD and dysphagia with pills sticking at the GE jxn. Her diarrhea has been somewhat better recently but she still has to wear a pad for incontinence. Tanya is C/W CR[employer] RAST shows food allergies to Egg whites, cows milk, wheat, shrimp, and sesame seeds At point she will keep her 07/06 appointment after the EGD CT ENTEROGRAPHY EGD/COLONOSCOPY 06/12/24 Findings: Larynx:normal Esophagus: GE junction at 37 cm, diaphragm hiatus at 37 cm, balloon dilation to 20 mm at LES , no tear, then 19 mm dilation at UES with tear noted, bx taken from distal and proximal esophagus , tertiary contractions noted Stomach: Patchy erythema . Biopsies were obtained. Grade 2 flap valve on retroflexed examination of the cardia. Duodenum: Normal bulb and descending duodenum, Intervention: Biopsies as noted above, balloon dilation BIOPSY Received: 06/12/24 Diagnosis A. Stomach, biopsy: Gastric antral mucosa with mild chronic inactive gastritis and intestinal metaplasia; negative for Helicobacter pylori and dysplasia. B. Esophagus, distal, biopsy: Squamous mucosa within normal limits; negative for inflammation (including intraepithelial eosinophils), fungal organisms, intestinal metaplasia and dysplasia. C. Esophagus, proximal, biopsy: Squamous mucosa within normal limits; negative for inflammation (including intraepithelial eosinophils), fungal organisms, intestinal metaplasia and dysplasia TODAY'S VISIT She is here today with her son who is supportive. She did have an improvement in her swallowing with the dilation. She still has some diarrhea breakthrough, but we are still waiting for her CT enterogram to see if IBD is in the ddx. She is taking the budesonide 2 caps a day. However, her diarrhea has improved since we started working on it as well as HB. She DOES have multiple food allergies. SHe continues on rabeprazole, imipramine 20mg and budesonide. 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 difficile colitis Breast cancer Surgical History History of esophagogastroduodenoscopy (EGD) H/O colonoscopy H/O lymph node biopsy Hx of cataract surgery History of tonsillectomy and adenoidectomy H/O hysterectomy for benign disease History of total bilateral knee replacement H/O kyphoplasty Family History Father No problems noted. Mother Breast cancer Sister Breast cancer Social History Household Members: Children Housing: House Are you a primary rn home care to a significant other at home: No Do you presently have visiting nurse or other home services: No Alcohol intake: never Patient Tobacco Use Status: Former Tobacco user Substance Use Type: Marijuana service: No Current occupational status: retired Review of Systems Const Denies fatigue, Denies fever(s), Denies night sweats, Denies poor appetite and Denies weight loss ENT Reports Normal hearing present, Denies dental pain, Denies dysphagia, Denies hearing loss, Denies mouth pain, Denies odynophagia, Denies throat swelling, Denies tongue swelling and Reports other (Dentition adequate) Card Reports no additional complaints Resp Reports no additional complaints GI Details: Denies abdominal pain, Denies melena, Denies bloating, Denies hematochezia, Denies constipation, Denies GI cramping, Denies dysphagia, Denies excessive flatus, Denies early satiety, Reports heartburn, Reports diarrhea, Denies nausea, Denies odynophagia, Denies vomiting and Denies hematemesis Musc Reports abnormal gait, Reports back pain and Reports arthralgias Skin/Breast Denies pruritus, Denies lesions, Denies rash and Denies jaundice Neuro Reports Normal hearing present, Denies Abnormal speech present and Reports abnormal gait Endo Denies fatigue Aller/Immun Denies throat swelling and Denies tongue swelling Physical Exam Vital Signs: Last Vital Signs Pulse 82 06/26/24 10:38 BP 146/73 H 06/26/24 10:38 BMI result Body Mass Index 39.2 Const General: cooperative, no acute distress, well developed and well groomed Nutritional Appearance: well nourished and obese Orientation/consciousness: oriented to person, oriented to place and oriented to time Limitations: No language barrier and ambulation with walker HEENT Head: Yes normocephalic and Yes atraumatic Eyes General: appearance normal, both eyes and all related structures Pupils: Equal, round and reactive pupils present Neck Neck: Yes normal visual inspection and Yes no lymphadenopathy Thyroid: Thyroid normal Resp Effort & Inspection: normal respiratory effort and able to speak in complete sentences Auscultation: clear to auscultation bilaterally Cardio Rate: regular rate Rhythm: regular rhythm Heart sounds: Normal, physiologic split S2 sound present Peripheral pulses: radial pulses present and posterior tibial pulses present GI Inspection: No distended, Yes Abdominal panniculus present and Yes obesity Palpation (GI): Soft to palpation, nontender, no guarding, not rigid and No hepatosplenomegaly present Percussion: Yes normal to percussion Auscultation: normal bowel sounds Rectal Exam - Female: deferred Skin General skin exam: no rashes or lesions noted, turgor normal, skin not dry, no jaundice, No spider nevi and no striae Rashes: no rashes Nails: normal Neuro General: oriented to person, oriented to place and oriented to time Cranial nerves: Yes Equal, round and reactive pupils present and Yes Normal hearing present Speech: No Abnormal speech present Extrem General: Yes normal to inspection, No clubbing, No cyanosis and No edema Psych Appearance: grossly normal and well kempt Mental Status: mental status grossly normal Speech and movement: Normal speech and movement present Affect: normal affect Attitude: cooperative Thought process: Normal thought process present and not confabulating Thought content: Normal thought content present Insight: Limited insight present (Psych) Judgement: Limited judgement present (Psych) Assessment & Plan Assessment & Plan (1) Dysphagia: Code(s): R13.10 - Dysphagia, unspecified Category: Medical (2) Multiple food allergies: Comment: RAST shows food allergies to Egg whites, cows milk, wheat, shrimp, and sesame seeds Code(s): Z91.018 - Allergy to other foods Category: Medical (3) Erosive esophagitis: Code(s): K22.10 - Ulcer of esophagus without bleeding Category: Medical (4) Elevated fecal calprotectin: Code(s): R19.5 - Other fecal abnormalities Category: Medical (5) Colitis: Code(s): K52.9 - Noninfective gastroenteritis and colitis, unspecified Category: Medical Plan She is here today with her son who is supportive. She did have an improvement in her swallowing with the dilation. She still has some diarrhea breakthrough, but we are still waiting for her CT enterogram to see if IBD is in the ddx. She is taking the budesonide 2 caps a day. However, her diarrhea has improved since we started working on it as well as HB. She DOES have multiple food allergies. SHe continues on rabeprazole, imipramine 20mg and budesonide. ROV 3 mos Medications: Changed From imipramine HCl 10 mg PO DAILY To imipramine HCl 20 mg (2 x 10 mg) PO DAILY 60 tabs 6RF Refilled rabeprazole (AcipHex) 20 mg PO DAILY 90 tabs 3RF K21.9 - Gastro-esophageal reflux disease without esophagitis, K22.10 - Ulcer of esophagus without bleeding, R13.10 - Dysphagia, unspecified Coding Level of Care Code Est Pt Level 3 (70298) Diagnoses Dysphagia R13.10 Multiple food allergies Z91.018 Erosive esophagitis K22.10 Elevated fecal calprotectin R19.5 Colitis K52.9
== END 2024-06-26 11:14 | disposition home or self-care (01) ==
PROVIDERS: PCP Internal Medicine; Visit Provider Nurse Practitioner
DX: R13.10 Dysphagia, unspecified (principal); Z91.018 Allergy to other foods; K22.10 Ulcer of esophagus without bleeding; R19.5 Other fecal abnormalities; K52.9 Noninfective gastroenteritis and colitis, unspecified
CPT/HCPCS: 99213

== ENCOUNTER → 2024-06-26 10:36 | Outpatient (BNVA) | payer MEDICARE, SELFPAY | PROVIDERS: PCP Internal Medicine; Visit Provider Nurse Practitioner | DX: K52.9 Noninfective gastroenteritis and colitis, unspecified (principal); K22.10 Ulcer of esophagus without bleeding; K21.9 Gastro-esophageal reflux disease without esophagitis; R13.10 Dysphagia, unspecified; R19.5 Other fecal abnormalities; Z91.018 Allergy to other foods; Z79.899 Other long term (current) drug therapy | CPT/HCPCS: 99212 ==

== ENCOUNTER 2024-06-27 09:40 | Outpatient (REF) | payer MEDICARE, SELFPAY ==
[2024-06-27 10:48] LABS: MANUAL DIFF FLAG NO
[2024-06-27 10:57] LABS: Appearance Urine Cloudy; Color Urine Yellow; Glucose Urine UA Negative (Negative); Leukocyte Esterase Urine Trace (Negative); Nitrite Urine Negative (Negative); Specific Gravity - Urine 1.015 (1.005-1.025); UMIC TRIGGER UACC YES; Urine Blood Negative (Negative); Urine Ketones Negative (Negative); Urine Protein 30 (1+) mg/dL (Neg-Trace)
[2024-06-27 11:01] LABS: Basophils Absolute Auto 0.1 X10*3/uL (0.0-0.2); Basophils Percent Auto 0.8 % (0-2); Eosinophils Absolute Auto 0.3 X10*3/uL (0.0-0.4); Hematocrit 44.7 % (37.0-47.0); Hemoglobin 14.2 g/dl (12.0-16.0); Lymphocytes Absolute Auto 2.2 X10*3/uL (1.2-4.9); Lymphocytes Percent Auto 21.1 % (20-40); Mean Corpuscular HGB Conc 31.8 g/dl (31.0-35.0); Mean Corpuscular Hemoglobin 31.4 pg (27.0-33.0); Mean Corpuscular Volume 98.9 fL (80.0-98.0); Mean Platelet Volume 9.9 fL (9.4-12.3); Monocytes Percent Auto 9.2 % (2-11); Neutrophils Absolute Auto 6.8 x10*3/uL (2.0-8.3); Neutrophils Percent Auto 64.9 % (45-73); Platelet Count 311 X10*3/uL (160-400); Red Blood Count 4.52 X10*6/uL (4.20-5.50); Red Cell Distribution Width 13.2 % (11.0-16.0); White Blood Count 10.5 X10*3/uL (4.8-10.8)
[2024-06-27 11:13] LABS: Alanine Aminotransferase 13 U/L (0-31); Albumin Level 3.9 g/dL (3.5-5.0); Alkaline Phosphatase 93 U/L (39-117); Anion Gap 13 (12-20); Aspartate Amino Transferase 19 U/L (5-31); Bilirubin Total 0.6 mg/dL (0.0-1.0); Blood Urea Nitrogen 19 mg/dL (9-16); Calcium 10.8 mg/dL (8.4-10.2); Carbon Dioxide 30 mmol/L (22-29); Chloride 101 mmol/L (96-108); Estimated Glomerular Filt Rate 37; Glucose Random 108 mg/dL (60-115); Potassium 3.8 mmol/L (3.3-5.1); Sodium 140 mmol/L (135-145); Total Protein 7.8 g/dL (6.5-8.0)
[2024-06-27 11:15] LABS: Estimated Average Glucose 108 mg/dL; Hemoglobin A1C 129.4033 umol/L; Hemoglobin A1c % 5.4 % (<6.0); Total Hemoglobin (HGBA1C) 3684.1233 umol/L
[2024-06-27 11:29] LABS: Bacteria Urine 1+ (None Seen); Hyaline Casts Urine 0-2 /LPF (0-2); RBC Urine 0-2 /HPF (0-2); Squamous Epithelial Cell Urine >20 /HPF (0-2); WBC Urine 0-5 /HPF (0-5)
== END 2024-06-27 09:41 | disposition home or self-care (01) ==
LOC: HO.10HDL 09:40
PROVIDERS: Visit Provider Internal Medicine
DX: J44.9 Chronic obstructive pulmonary disease, unspecified (principal); I12.9 Hypertensive chronic kidney disease with stage 1 through stage 4 chronic kidney disease, or unspecified chronic kidney disease; N18.9 Chronic kidney disease, unspecified; R73.03 Prediabetes
CPT/HCPCS: 36415; 80053; 81001; 83036; 85025; 87086

== ENCOUNTER 2024-08-01 09:44 | Outpatient (AMB) | payer MEDICARE, SELFPAY ==
--- NOTE | 2024-08-01 09:50 | A.OFFVIS_ITS ---
Vital Signs 08/01/24 09:51 Height 4 ft 11 in Weight 192 lb 14.472 oz BMI 39.0 BP 130/70 Blood Pressure Location Lt brachial Position Sitting Pulse 80 Pulse Source Pulse Oximeter Pulse Oximetry (%) 96 Oxygen Delivery Method Room Air Intake Visit Reasons: COPD Intake Note: pt is here for follow up and states her breathing has good days and bad days, distance is always an issue. 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 codeine [CODEINE] Allergy (Intermediate, Verified 08/01/24 10:07) Rash fish derived [FISH] Allergy (Intermediate, Verified 08/01/24 10:07) HIVES Iodinated Contrast Media [IV Dye, Iodine Containing] Allergy (Intermediate, Verified 08/01/24 10:07) HIVES nitrofurantoin [Nitrofurantoin] Allergy (Intermediate, Verified 08/01/24 10:07) HIVES Sulfa (Sulfonamide Antibiotics) [SULFA (SULFONAMIDE ANTIBIOTICS)] Allergy (Inter mediate, Verified 08/01/24 10:07) RASH valsartan [From DIOVAN] Allergy (Intermediate, Verified 08/01/24 10:07) HIVES vancomycin [VANCOMYCIN] Allergy (Intermediate, Verified 08/01/24 10:07) RASH Penicillins [PENICILLINS] Allergy (Mild, Verified 08/01/24 10:07) RASH adhesive [ADHESIVE] Allergy (Unknown, Verified 08/01/24 10:07) UNKNOWN hydrocodone [Vicodin] Allergy (Unknown, Verified 08/01/24 10:07) Unknown ibuprofen [IBUPROFEN] Adverse Reaction (Unknown, Verified 08/01/24 10:07) UNKNOWN Medication List - Last Reconciled 08/01/24 by Caro Dobson MD acetaminophen (Tylenol Extra Strength) 1,000 mg PO ONCE PRN albuterol sulfate 90 mcg/actuation 2 puffs inhalation Q6H PRN albuterol sulfate 2.5 mg inhalation Q4H PRN aspirin 81 mg PO DAILY budesonide DR-ER 6 mg (2 x 3 mg) PO QAM fluticasone propion-salmeterol 250-50 mcg/dose (Wixela Inhub) 1 inh inhalation BID hydrochlorothiazide 25 mg PO DAILY imipramine HCl 20 mg (2 x 10 mg) PO DAILY levothyroxine 50 mcg PO DAILY metoprolol succinate ER 50 mg PO DAILY oxycodone 5 mg PO QID PRN prochlorperazine maleate 10 mg PO BID PRN rabeprazole (AcipHex) 20 mg PO DAILY tiotropium bromide 18 mcg inhalation DAILY 90 days tramadol 50 mg PO BID PRN Do you need a note to return to daycare/school/sports/work: No HPI HPI COPD: Details: This 84 years old very pleasant female, grossly obese , with history of asthma/COPD overlap syndrome, and multiple other comorbidities, Is here today for 4 months follow-up. Since her last visit she underwent upper endoscopy without any complications. Breathing has been stable except for the fact that she gets short of breath on minimal walking. She uses wheeled walker and her gait is slow. Luckily she has had no respiratory infections. Has very little cough or wheezing. 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 difficile colitis Breast cancer Surgical History History of esophagogastroduodenoscopy (EGD) H/O colonoscopy H/O lymph node biopsy Hx of cataract surgery History of tonsillectomy and adenoidectomy H/O hysterectomy for benign disease History of total bilateral knee replacement H/O kyphoplasty Family History Father No problems noted. Mother Breast cancer Sister Breast cancer Social History Household Members: Children Housing: House Are you a primary ocular care technician to a significant other at home: No Do you presently have visiting nurse or other home services: No Alcohol intake: never Patient Tobacco Use Status: Former Tobacco user Substance Use Type: Marijuana service: No Current occupational status: retired Review of Systems Const All systems reviewed & are unremarkable except as noted in HPI and below Eyes Reports no additional complaints ENT Reports no additional complaints Card Denies chest pain, Denies irregular heart rhythm and Denies leg edema Resp Reports as per HPI GI Reports no additional complaints Reports no additional complaints Musc Reports abnormal gait (Needs the walker to ambulate) and Reports back pain Skin/Breast Reports system reviewed and no additional complaints, except as documented Neuro Reports abnormal gait (Needs the walker to ambulate) Psych Reports no additional complaints Endo Reports no additional complaints Physical Exam Const Other: Grossly overweight General: comfortable, no acute distress, alert and awake Orientation/consciousness: patient oriented x3 HEENT Head: Yes normal to inspection General nose exam: No nasal polyps present and No nasal discharge present Face and sinus: Yes sinuses nontender Mouth: oropharynx normal Throat: Yes posterior oropharynx normal Eyes General: appearance normal, both eyes and all related structures Neck Neck: Yes normal visual inspection, Yes no lymphadenopathy (And no submandibular adenitis), Yes trachea midline and Yes no JVD Thyroid: Thyroid normal Chest Chest palpation & inspection: normal inspection of the chest, normal palpation of entire chest wall and no tenderness Resp Other: Percussion note is resonant, breath sounds are very distant with prolonged expiratory phase. No active wheezes or crepitations are heard today. Cardio Palpation: normal PMI Rate: regular rate Rhythm: regular rhythm Heart sounds: no gallops and no murmurs GI Palpation (GI): Soft to palpation, Tenderness to palpation present (GI), No hepatosplenomegaly present, Palpable mass present and Other GI palpation findings present (Abdomen is obese and somewhat protuberant) Auscultation: normal bowel sounds Back/Spine/Pelvis Thoracic/Lumbar Spine: thoracic and lumbar spine normal to inspection and thoraco-lumbar ROM limited Skin General skin exam: no rashes or lesions noted Neuro General: patient oriented x3, No gait normal (Gait unstable ,uses walker) and no focal motor deficits Cranial nerves: Yes CN's II-XII intact bilaterally Extrem General: Yes normal to inspection, Yes no clubbing, cyanosis or edema and Yes no calf tenderness Psych Appearance: grossly normal and well kempt Speech and movement: Normal speech and movement present Assessment & Plan Assessment & Plan (1) Asthma-COPD overlap syndrome: Comment: 84 YEARS OLD FEMALE IS A KNOWN CASE OF ADVANCED CHRONIC OBSTRUCTIVE PULMONARY DISEASE, WITH ELEMENT OF REVERSIBLE COMPONENT. SHE HAS BEEN DOING WELL WITHOUT ANY ACUTE INFECTION OR EXACERBATION. SHE HAS CONSIDERABLE DYSPNEA ON EXERTION EXPECTED, BUT USUALLY NO DISTRESS AT REST. THE GOAL IS TO KEEP IT STABLE AND FREE OF ANY ACUTE EXACERBATIONS. Code(s): J44.9 - Chronic obstructive pulmonary disease, unspecified Category: Medical Plan: CONTINUE WIXELA 250-51 INHALATION B.I.D. AN SPIRIVA HANDIHALER 1 INHALATION DAILY. ALBUTEROL HFA 2 PUFFS Q 6 HOURS P.R.N. WHEN OUTDOORS. AT HOME SHE MAY USE ALBUTEROL SOLUTION IN THE NEBULIZER AND USE Q 6 HOURS P.R.N. FOR ACUTE DISTRESS. (2) Obesity: Comment: SHE IS AWARE OF THE FACT THAT SHE IS QUITE OVERWEIGHT. IT IS DIFFICULT FOR HER TO LOSE ANY WEIGHT. Code(s): E66.9 - Obesity, unspecified Category: Medical Plan: ONCE AGAIN DISCUSSED ABOUT KEEPING THE CALORIES INTAKE IN CONTROLLED. JUST IN THE HOUSE TRY TO BE PHYSICALLY ACTIVE MUCH POSSIBLE. Coding Level of Care Code Est Pt Level 3 (74138) Diagnoses Asthma-COPD overlap syndrome J44.9 Obesity E66.9
[2024-08-01 09:51] VITALS: BP 130/70; PULSE 80; O2SAT 96; BMI 39.0
== END 2024-08-01 10:08 | disposition home or self-care (01) ==
PROVIDERS: PCP Internal Medicine; Visit Provider Internal Medicine
DX: J44.9 Chronic obstructive pulmonary disease, unspecified (principal); E66.9 Obesity, unspecified
CPT/HCPCS: 99213

== ENCOUNTER → 2024-08-01 09:44 | Outpatient (BNVA) | payer MEDICARE, SELFPAY | PROVIDERS: PCP Internal Medicine; Visit Provider Internal Medicine | DX: J44.9 Chronic obstructive pulmonary disease, unspecified (principal); E66.09 Other obesity due to excess calories; Z68.39 Body mass index [BMI] 39.0-39.9, adult | CPT/HCPCS: 99212 ==

== ENCOUNTER 2024-09-16 12:59 | Outpatient (AMB) | payer MEDICARE, SELFPAY ==
[2024-09-16 13:06] VITALS: BP 150/90; BMI 39.5
--- NOTE | 2024-09-16 13:06 | HO.NEPHOV_ITS ---
Vital Signs 09/16/24 13:06 Height 4 ft 11 in Weight 195 lb 8 oz BMI 39.5 BP 150/90 H Blood Pressure Location Lt brachial Position Sitting Intake Visit Reasons: 6 mon follow up/ Conf Breast Trimmer Required: No Accompanied by: Self / Same As Patient Allergies gabapentin Allergy (Severe, Verified 09/16/24 13:06) severe urinary incont. codeine [CODEINE] Allergy (Intermediate, Verified 09/16/24 13:06) Rash fish derived [FISH] Allergy (Intermediate, Verified 09/16/24 13:06) HIVES Iodinated Contrast Media [IV Dye, Iodine Containing] Allergy (Intermediate, Verified 09/16/24 13:06) HIVES nitrofurantoin [Nitrofurantoin] Allergy (Intermediate, Verified 09/16/24 13:06) HIVES Sulfa (Sulfonamide Antibiotics) [SULFA (SULFONAMIDE ANTIBIOTICS)] Allergy (Intermediate, Verified 09/16/24 13:06) RASH valsartan [From DIOVAN] Allergy (Intermediate, Verified 09/16/24 13:06) HIVES vancomycin [VANCOMYCIN] Allergy (Intermediate, Verified 09/16/24 13:06) RASH Penicillins [PENICILLINS] Allergy (Mild, Verified 09/16/24 13:06) RASH adhesive [ADHESIVE] Allergy (Unknown, Verified 09/16/24 13:06) UNKNOWN hydrocodone [Vicodin] Allergy (Unknown, Verified 09/16/24 13:06) Unknown ibuprofen [IBUPROFEN] Adverse Reaction (Unknown, Verified 09/16/24 13:06) UNKNOWN Medication List - Last Reconciled 09/16/24 by Nicolas Powell MD acetaminophen (Tylenol Extra Strength) 1,000 mg PO ONCE PRN albuterol sulfate 90 mcg/actuation 2 puffs inhalation Q6H PRN albuterol sulfate 2.5 mg inhalation Q4H PRN aspirin 81 mg PO DAILY budesonide DR-ER 6 mg (2 x 3 mg) PO QAM fluticasone propion-salmeterol 250-50 mcg/dose (Wixela Inhub) 1 inh inhalation BID hydrochlorothiazide 25 mg PO DAILY imipramine HCl 20 mg (2 x 10 mg) PO DAILY levothyroxine 50 mcg PO DAILY metoprolol succinate ER 50 mg PO DAILY oxycodone 5 mg PO QID PRN prochlorperazine maleate 10 mg PO BID PRN rabeprazole (AcipHex) 20 mg PO DAILY tiotropium bromide 18 mcg inhalation DAILY 90 days tramadol 50 mg PO BID PRN HPI Comments Details: Elderly woman with a history of longstanding hypertension and CKD along with COPD. She continues have shortness or breath and uses inhalers. 10/03/23; Has increased urine output 03/04/2024. No new renal issues today. She has had difficulty swallowing and underwent barium swallow. 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 difficile colitis Breast cancer Surgical History History of esophagogastroduodenoscopy (EGD) H/O colonoscopy H/O lymph node biopsy Hx of cataract surgery History of tonsillectomy and adenoidectomy H/O hysterectomy for benign disease History of total bilateral knee replacement H/O kyphoplasty Family History Father No problems noted. Mother Breast cancer Sister Breast cancer Social History Household Members: Children Housing: House Are you a primary acute care physical therapist to a significant other at home: No Do you presently have visiting nurse or other home services: No Alcohol intake: never Patient Tobacco Use Status: Former Tobacco user Substance Use Type: Marijuana service: No Current occupational status: retired Physical Exam Vital Signs: Last Vital Signs BP 150/90 H 09/16/24 13:06 BMI result Body Mass Index 39.5 Const General: comfortable; No acute distress Orientation/consciousness: patient oriented x3 Eyes General: appearance normal, both eyes and all related structures Visual Dukes: normal visual dukes by confrontation Neck Neck: Yes supple and Yes no JVD Resp Effort & Inspection: normal respiratory effort and respiratory effort not de creased Auscultation: rhonchi Cardio Palpation: no palpable S3 and no palpable S4 Heart sounds: no rubs GI Inspection: Yes normal to inspection Palpation (GI): Soft to palpation Percussion: Yes normal to percussion Auscultation: normal bowel sounds General: Yes no CVA tenderness Back/Spine/Pelvis Back: no CVA tenderness Skin General skin exam: no petechiae and no purpura Neuro General: patient oriented x3 and no focal motor deficits Extrem General: No clubbing and No edema Results Reviewed Nephrology Results: Hgb 14.2 g/dl (12.0-16.0) 06/27/24 WBC 10.5 X10*3/uL (4.8-10.8) 06/27/24 Plt Count 311 X10*3/uL (160-400) 06/27/24 Sodium 140 mmol/L (135-145) 06/27/24 Potassium 3.8 mmol/L (3.3-5.1) 06/27/24 Chloride 101 mmol/L (96-108) 06/27/24 Carbon Dioxide 30 mmol/L (22-29) H 06/27/24 BUN 19 mg/dL (9-16) H 06/27/24 Creatinine 1.35 mg/dL (0.5-1.4) 06/27/24 Calcium 10.8 mg/dL (8.4-10.2) H 06/27/24 Urine Protein 30 (1+) mg/dL (Neg-Trace) H 06/27/24 Assessment & Plan Assessment & Plan (1) CKD (chronic kidney disease): Code(s): N18.9 - Chronic kidney disease, unspecified Category: Medical Plan: CKD in a setting of longstanding hypertension. Cr is better at 1.23 Renal function remains stable (2) Hypercalcemia: Code(s): E83.52 - Hypercalcemia Category: Medical Plan: Repeat calcium is better SPEP - NO MCGP DC Vit D supplement (3) Hypertension: Code(s): I10 - Essential (primary) hypertension Category: Medical Plan: Blood pressure has been acceptable. check blood pressure at home if possible. Continue with low-salt diet. (4) Asthma-COPD overlap syndrome: Code(s): J44.9 - Chronic obstructive pulmonary disease, unspecified Category: Medical Plan: Follow-up with Pulmonary Plan Dysphagia. Diarrhea Has GI follow-up Coding Level of Care Code Est Pt Level 4 (70434) Diagnoses CKD (chronic kidney disease) N18.9 Hypercalcemia E83.52 Hypertension I10 Asthma-COPD overlap syndrome J44.9
== END 2024-09-16 13:21 | disposition home or self-care (01) ==
PROVIDERS: PCP Internal Medicine; Visit Provider Internal Medicine Hypertension Specialist
DX: I12.9 Hypertensive chronic kidney disease with stage 1 through stage 4 chronic kidney disease, or unspecified chronic kidney disease (principal); N18.9 Chronic kidney disease, unspecified; E83.52 Hypercalcemia; J44.9 Chronic obstructive pulmonary disease, unspecified
CPT/HCPCS: 99214

== ENCOUNTER → 2024-09-16 12:59 | Outpatient (BNVA) | payer MEDICARE, SELFPAY | PROVIDERS: PCP Internal Medicine; Visit Provider Internal Medicine Hypertension Specialist | DX: I12.9 Hypertensive chronic kidney disease with stage 1 through stage 4 chronic kidney disease, or unspecified chronic kidney disease (principal); N18.9 Chronic kidney disease, unspecified; E83.52 Hypercalcemia; J44.9 Chronic obstructive pulmonary disease, unspecified | CPT/HCPCS: 99212 ==

== ENCOUNTER 2024-09-23 10:42 | Outpatient (REF) | payer MEDICARE, SELFPAY ==
[2024-09-23 12:58] LABS: MANUAL DIFF FLAG NO
[2024-09-23 13:06] LABS: Basophils Absolute Auto 0.1 X10*3/uL (0.0-0.2); Basophils Percent Auto 0.6 % (0-2); Eosinophils Absolute Auto 0.1 X10*3/uL (0.0-0.4); Eosinophils Percent Auto 1.3 % (0-4); Hematocrit 43.4 % (37.0-47.0); Hemoglobin 13.8 g/dl (12.0-16.0); Imm Gran Abs Auto 0.06 X10*3/uL (0.00-0.03); Imm Gran Pct Auto 0.6 % (0.0-0.4); Lymphocytes Absolute Auto 1.3 X10*3/uL (1.2-4.9); Lymphocytes Percent Auto 12.9 % (20-40); Mean Corpuscular HGB Conc 31.8 g/dl (31.0-35.0); Mean Corpuscular Hemoglobin 31.6 pg (27.0-33.0); Mean Corpuscular Volume 99.3 fL (80.0-98.0); Mean Platelet Volume 10.2 fL (9.4-12.3); Monocytes Absolute Auto 0.8 X10*3/uL (0.1-1.2); Monocytes Percent Auto 8.1 % (2-11); Neutrophils Absolute Auto 7.9 x10*3/uL (2.0-8.3); Neutrophils Percent Auto 76.5 % (45-73); Platelet Count 294 X10*3/uL (160-400); Red Blood Count 4.37 X10*6/uL (4.20-5.50); Red Cell Distribution Width 13.1 % (11.0-16.0); White Blood Count 10.3 X10*3/uL (4.8-10.8)
[2024-09-23 13:32] LABS: Alanine Aminotransferase 12 U/L (0-31); Albumin Level 3.8 g/dL (3.5-5.0); Alkaline Phosphatase 94 U/L (39-117); Anion Gap 9 (12-20); Aspartate Amino Transferase 20 U/L (5-31); Bilirubin Total 0.5 mg/dL (0.0-1.0); Blood Urea Nitrogen 21 mg/dL (9-16); Calcium 10.1 mg/dL (8.4-10.2); Carbon Dioxide 29 mmol/L (22-29); Chloride 105 mmol/L (96-108); Estimated Glomerular Filt Rate 38; Glucose Random 83 mg/dL (60-115); Lipase 14 U/L (8-78); Potassium 3.4 mmol/L (3.3-5.1); Sodium 140 mmol/L (135-145); Total Protein 7.4 g/dL (6.5-8.0)
== END 2024-09-23 10:43 | disposition home or self-care (01) ==
LOC: HO.10HDL 10:42
PROVIDERS: Visit Provider Internal Medicine
DX: J44.9 Chronic obstructive pulmonary disease, unspecified (principal); K21.9 Gastro-esophageal reflux disease without esophagitis; N18.9 Chronic kidney disease, unspecified
CPT/HCPCS: 36415; 80053; 83690; 85025

== ENCOUNTER 2024-09-25 01:59 | Emergency (ER) | payer MEDICARE, SELFPAY ==
--- NOTE | 2024-09-25 | ECG_ITS ---
Test Reason : SOB Blood Pressure : */* mmHG Vent. 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
--- NOTE | ~2024-09-25 | XR_ITS ---
CLINICAL HISTORY: sob 1 view chest x-ray Comparison: CR - XR CHEST 1V - 05/31/21 05:58 EDT Findings: Streaky basilar subsegmental atelectasis or infiltrates. Heart size is normal. No acute fracture. IMPRESSION: Streaky basilar subsegmental atelectasis or infiltrates. This document has been electronically signed by: Ervin Sorenson MD, PHD on 09/25/2024 03:36:47
[2024-09-25 02:07] VITALS: PULSE 70; RESP 20; TEMP 36.3; O2SAT 95; BMI 38.8
[2024-09-25 02:16] VITALS: BP 194/77; PULSE 69; RESP 20; O2SAT 95
[2024-09-25 02:22] LABS: VBG Base Excess 4.6 mmol/L; VBG HCO3 29 mmol/L (22-26); VBG pCO2 41 mmHg; VBG pH 7.45 (7.32-7.43); VBG pO2 34 mmHg
[2024-09-25 02:24] LABS: MANUAL DIFF FLAG NO
--- NOTE | 2024-09-25 02:26 | MHC.EDTECH ---
Patient BIBA,changed into hospital attire,vitals taken,BP is elevated,RN at bedside,EKG taken per order,signed by provider,labs/sars/flu/rsv obtained and sent to lab,call sanchez in reach
[2024-09-25 02:27] LABS: Basophils Percent Auto 0.5 % (0-2); Eosinophils Absolute Auto 0.1 X10*3/uL (0.0-0.4); Eosinophils Percent Auto 1.6 % (0-4); Imm Gran Abs Auto 0.06 X10*3/uL (0.00-0.03); Imm Gran Pct Auto 0.8 % (0.0-0.4); Lymphocytes Absolute Auto 0.7 X10*3/uL (1.2-4.9); Lymphocytes Percent Auto 8.9 % (20-40); Mean Corpuscular HGB Conc 33.3 g/dl (31.0-35.0); Mean Corpuscular Hemoglobin 31.5 pg (27.0-33.0); Mean Corpuscular Volume 94.6 fL (80.0-98.0); Mean Platelet Volume 9.7 fL (9.4-12.3); Monocytes Absolute Auto 0.8 X10*3/uL (0.1-1.2); Monocytes Percent Auto 9.5 % (2-11); Neutrophils Absolute Auto 6.3 x10*3/uL (2.0-8.3); Neutrophils Percent Auto 78.7 % (45-73); Platelet Count 268 X10*3/uL (160-400); Red Blood Count 4.44 X10*6/uL (4.20-5.50)
[2024-09-25 02:47] LABS: Venous Blood Gas Refer to POC result
[2024-09-25 02:48] LABS: Troponin-I High Sensitivity 9.3 ng/L (<3.5-17.0)
[2024-09-25 02:50] LABS: Alanine Aminotransferase 18 U/L (0-31); Albumin Level 3.7 g/dL (3.5-5.0); Anion Gap 12 (12-20); Aspartate Amino Transferase 25 U/L (5-31); Bilirubin Direct 0.3 mg/dL (0.0-0.5); Bilirubin Total 0.9 mg/dL (0.0-1.0); Blood Urea Nitrogen 18 mg/dL (9-16); Calcium 10.4 mg/dL (8.4-10.2); Carbon Dioxide 26 mmol/L (22-29); Chloride 101 mmol/L (96-108); Creatinine Clr Calc Pharmacy 31.4; Estimated Glomerular Filt Rate 40; Glucose Random 122 mg/dL (60-115); Magnesium 1.5 mg/dL (1.6-2.6); Potassium 3.9 mmol/L (3.3-5.1); Sodium 135 mmol/L (135-145); Total Protein 7.6 g/dL (6.5-8.0)
--- NOTE | 2024-09-25 03:00 | ED_ITS ---
HPI - General Adult General Chief complaint: General Medical Stated complaint: Nausea/Headache Time Seen by Provider: 09/25/24 03:00 Source: patient Mode of arrival: ambulatory Limitations: no limitations History of Present Illness ED Provider: HPI narrative: Patient's history of COPD not on home oxygen been sick for last 1 week with nausea and cough and diarrhea patient has resolved seen PCP swabs were done which was negative was given Zofran for the nausea comes here for increased weakness and nausea and weakness overall saturating 95% at room air Related Data Home Medications ?Medication ?Instructions ?Recorded ?Confirmed hydrochlorothiazide 25 mg tablet 25 mg PO DAILY 06/15/20 09/16/24 levothyroxine 50 mcg tablet 50 mcg PO DAILY 06/15/20 09/16/24 metoprolol succinate 50 mg 50 mg PO DAILY 06/15/20 09/16/24 tablet,extended release 24 hr aspirin 81 mg tablet,delayed 81 mg PO DAILY 03/11/21 09/16/24 release oxycodone 5 mg tablet 5 mg PO QID PRN Pain 11/16/21 09/16/24 tramadol 50 mg tablet 50 mg PO BID PRN Pain 11/16/21 09/16/24 prochlorperazine maleate 10 mg 10 mg PO BID PRN Nausea And 03/13/24 09/16/24 tablet Vomiting albuterol sulfate 2.5 mg/3 mL 2.5 mg inhalation Q4H PRN for 03/25/24 09/16/24 (0.083 %) solution for nebulization wheezing acetaminophen 500 mg tablet 1,000 mg PO ONCE PRN pain 06/05/24 09/16/24 (Tylenol Extra Strength) albuterol sulfate 90 mcg/actuation 2 puff inhalation Q6H PRN 06/05/24 09/16/24 aerosol inhaler Shortness Of Breath Or Wheezing fluticasone 250 mcg-salmeterol 50 1 inh inhalation BID 06/05/24 09/16/24 mcg/dose blistr powdr for inhalation (Wixela Inhub) Previous Rx's ?Medication ?Instructions ?Recorded budesonide 3 mg 6 mg (2 x 3 mg) PO QAM #180 ea 06/04/24 capsule,delayed,extended release imipramine HCl 10 mg tablet 20 mg (2 x 10 mg) PO DAILY #60 tabs 06/26/24 rabeprazole 20 mg tablet,delayed 20 mg PO DAILY #90 tabs 06/26/24 release (AcipHex) tiotropium bromide 18 mcg capsule 18 mcg inhalation DAILY copd 90 07/15/24 with inhalation device days #90 inhalations benzonatate 200 mg capsule 200 mg PO TID PRN cough #30 caps 09/25/24 prednisone 20 mg tablet 40 mg (2 x 20 mg) PO DAILY #10 tabs 09/25/24 Allergies Allergy/AdvReac Type Severity Reaction Status Date / Time gabapentin Allergy Severe severe Verified 09/25/24 02:09 urinary incont. codeine [CODEINE] Allergy Intermediate Rash Verified 09/25/24 02:09 fish derived [FISH] Allergy Intermediate HIVES Verified 09/25/24 02:09 Iodinated Contrast Media Allergy Intermediate HIVES Verified 09/25/24 02:09 [IV Dye, Iodine Containing] nitrofurantoin Allergy Intermediate HIVES Verified 09/25/24 02:09 [Nitrofurantoin] Sulfa (Sulfonamide Allergy Intermediate RASH Verified 09/25/24 02:09 Antibiotics) [SULFA (SULFONAMIDE ANTIBIOTICS)] valsartan [From DIOVAN] Allergy Intermediate HIVES Verified 09/25/24 02:09 vancomycin [VANCOMYCIN] Allergy Intermediate RASH Verified 09/25/24 02:09 Penicillins [PENICILLINS] Allergy Mild RASH Verified 09/25/24 02:09 adhesive [ADHESIVE] Allergy Unknown UNKNOWN Verified 09/25/24 02:09 hydrocodone [Vicodin] Allergy Unknown Unknown Verified 09/25/24 02:09 ibuprofen [IBUPROFEN] AdvReac Unknown UNKNOWN Verified 09/25/24 02:09 Review of Systems 2 Review of Systems: Yes all other systems are reviewed and are negative [facility] Past Medical History Medical History Neuropathy of left ulnar nerve at wrist Compression fracture of C1 vertebra 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 difficile colitis Breast cancer Surgical History History of esophagogastroduodenoscopy (EGD) H/O colonoscopy H/O lymph node biopsy Hx of cataract surgery History of tonsillectomy and adenoidectomy H/O hysterectomy for benign disease History of total bilateral knee replacement H/O kyphoplasty Family History Family History Father No problems noted. Mother Breast cancer Sister Breast cancer Social History Social History Household Members: Children Housing: House Are you a primary healthcare administration intern to a significant other at home: No Do you presently have visiting nurse or other home services: No Alcohol intake: never Patient Tobacco Use Status: Former Tobacco user Smoked in Last 30 Days: No Use of substances other than those prescribed or required for medical reasons: No Substance Use Type: Marijuana Advance Directives: No Advance Directives Information Provided: Yes Do you have a plan to hurt others: No Plan service: No Current occupational status: retired Physical Exam ED Vital Signs: Vital Signs - 24 hr 09/25/24 02:07 09/25/24 02:16 09/25/24 03:14 Temperature 97.4 F 97.5 F Pulse Rate 70 69 65 Respiratory Rate 20 20 20 Blood Pressure 194/77 H 167/68 H Pulse Oximetry 95 95 97 Oxygen Delivery Method Room Air Room Air Room Air BMI result Body Mass Index 38.8 Appearance: Alert. Oriented X3. No acute distress. Eyes: PERRLA, No Nystagmus ENT: Pharynx normal. Oral Mucosa moist Neck: Normal inspection. Neck supple. CVS: Normal heart rate and rhythm. Pulses normal. Respiratory: No respiratory distress. Equal air entry bilateral, bilateral wheezing Abdomen: Soft and nontender. Bowel sounds are present, no mass palpable, no CVA tenderness Skin: Skin warm and dry. Normal skin color. Normal skin turgor. Extremities: No lower extremity edema. No calf tenderness Neuro: Oriented X 3. No motor deficit. No sensory deficit.No cerebellar signs , cranial nerves II-XII intact Medications Administered Discontinued Medications Generic Name Dose Route Start Last Admin Trade Name Freq PRN Reason Stop Dose Admin Albuterol Sulfate 2.5 mg/ 0 mg 09/25/24 05:32 09/25/24 05:58 Albuterol/Ipratropium 3 ml INHALE 09/25/24 05:33 1 dose ONCE ONE Administration Magnesium Sulfate 2 gm in 50 mls @ 150 mls/hr 09/25/24 03:14 09/25/24 03:45 Magnesium Sulfate/H2o IV 09/25/24 03:33 Infused ONCE ONE Infusion Sodium Chloride 1,000 mls @ 999 mls/hr 09/25/24 03:19 09/25/24 04:49 Ns IV 09/25/24 04:19 Infused .Q1H1M ONE Infusion Methylprednisolone Sodium Succinate 125 mg 09/25/24 05:34 09/25/24 06:16 Methylprednisolone Sod Succ 125 Mg/2 Ml Vial IVPUSH 09/25/24 05:35 125 mg ONCE ONE Administration Morphine Sulfate 4 mg 09/25/24 03:19 09/25/24 03:25 Morphine Sulfate 4 Mg/Ml Cartridge IVPUSH 09/25/24 03:20 4 mg ONCE ONE Administration Protocol Ondansetron HCl 4 mg 09/25/24 03:19 09/25/24 03:25 Ondansetron Hcl 4 Mg/2 Ml Vial IVPUSH 09/25/24 03:20 4 mg ONCE ONE Administration Medical Decision Making Medical Decision Making MDM Narrative: Patient's COPD stable vitals noted to be positive for COVID likely the cause for increased weakness and nausea patient has received patient has received IV fluids DuoNeb treatment magnesium and prednisone feeling much better will discharge patient home advised to follow with PCP Differential Diagnosis Differential Diagnoses: The differential diagnosis associated with the presentation includes Admission/Observation Consideration of admission/observation: Escalation of care including admission/observation considered Lab Data [facility] Lab Attestation statement: I reviewed the patient's lab results. 09/25/24 02:15 09/25/24 02:16 Labs: Lab Results 09/25/24 09/25/24 09/25/24 Range/Units 02:15 02:16 02:17 WBC 8.0 (4.8-10.8) X10*3/uL RBC 4.44 (4.20-5.50) X10*6/uL Hgb 14.0 (12.0-16.0) g/dl Hct 42.0 (37.0-47.0) % MCV 94.6 (80.0-98.0) fL MCH 31.5 (27.0-33.0) pg MCHC 33.3 (31.0-35.0) g/dl RDW 13.0 (11.0-16.0) % Plt Count 268 (160-400) X10*3/uL MPV 9.7 (9.4-12.3) fL Immature Gran % (Auto) 0.8 H (0.0-0.4) % Neut % (Auto) 78.7 H (45-73) % Lymph % (Auto) 8.9 L (20-40) % [place] % (Auto) 9.5 (2-11) % Eos % (Auto) 1.6 (0-4) % Baso % (Auto) 0.5 (0-2) % Lymph # (Auto) 0.7 L (1.2-4.9) X10*3/uL [place] # (Auto) 0.8 (0.1-1.2) X10*3/uL Eos # (Auto) 0.1 (0.0-0.4) X10*3/uL Baso # (Auto) 0.0 (0.0-0.2) X10*3/uL Abs Immat Gran (auto) 0.06 H (0.00-0.03) X10*3/uL Absolute Neuts (auto) 6.3 (2.0-8.3) x10*3/uL Absolute Nucleated RBC 0.000 (0.0-0.012) X10*3/uL Nucleated RBC % (auto) 0.0 (0.0-0.2) /100WBC Hold Purple Top SEE NOTE VBG pH 7.45 H (7.32-7.43) VBG pCO2 41 mmHg VBG pO2 34 mmHg VBG HCO3 29 H (22-26) mmol/L VBG O2 Saturation 61.0 % VBG Base Excess 4.6 mmol/L Sodium 135 (135-145) mmol/L Potassium 3.9 (3.3-5.1) mmol/L Chloride 101 (96-108) mmol/L Carbon Dioxide 26 (22-29) mmol/L Anion Gap 12 (12-20) BUN 18 H (9-16) mg/dL Creatinine 1.28 (0.5-1.4) mg/dL Estim Creat Clear Calc 31.4 Estimated GFR 40 Random Glucose 122 H (60-115) mg/dL Calcium 10.4 H (8.4-10.2) mg/dL Magnesium 1.5 L (1.6-2.6) mg/dL Total Bilirubin 0.9 (0.0-1.0) mg/dL Direct Bilirubin 0.3 (0.0-0.5) mg/dL AST 25 (5-31) U/L ALT 18 (0-31) U/L Alkaline Phosphatase 90 (39-117) U/L Troponin I High Sens 9.3 (<3.5-17.0) ng/L Total Protein 7.6 (6.5-8.0) g/dL Albumin 3.7 (3.5-5.0) g/dL Influenza Type A (PCR) NEGATIVE (Negative) Influenza Type B (PCR) NEGATIVE (Negative) RSV RNA Qual (PCR) NEGATIVE (Negative) SARS-CoV-2 RNA (RT-PCR) POSITIVE A (Negative) Independent Interpretation I performed an independent interpretation of an: Plain X-Ray Interpretation: No acute Radiology Impression Discussion of test interpretation with radiology: I have reviewed the radiologist's reading. Discharge Plan Discharge Clinical Impression: COVID-19, COPD (chronic obstructive pulmonary disease) Patient Disposition: Home, Self-Care Instructions: COPD (Chronic Obstructive Pulmonary Disease) (DC), COVID-19 (Coronavirus Disease 2019) (ED) Additional Instructions: Continue your nebulizer and inhaler and other medications Cough drops as prescribed Take the course of prednisone as prescribed Eat and drink well Report to the ER if increased shortness a breath Prescriptions: New benzonatate 200 mg capsule 200 mg PO TID PRN (Reason: cough) Qty: 30 0RF prednisone 20 mg tablet 40 mg PO DAILY Qty: 10 0RF No Action budesonide 3 mg capsule,delayed,extend.release 6 mg PO QAM Qty: 180 1RF tiotropium bromide 18 mcg capsule, w/inhalation device 18 mcg inhalation DAILY 90 Days Qty: 90 3RF Rx Instructions: pt. needs the inhalation device used for Handihalor aspirin [Aspir-81] 81 mg Tablet,Delayed Release (Dr/Ec) 81 mg PO DAILY metoprolol succinate 50 mg tablet extended release 24 hr 50 mg PO DAILY hydrochlorothiazide 25 mg tablet 25 mg PO DAILY levothyroxine 50 mcg tablet 50 mcg PO DAILY oxycodone 5 mg tablet 5 mg PO QID PRN (Reason: Pain) tramadol 50 mg tablet 50 mg PO BID PRN (Reason: Pain) prochlorperazine maleate 10 mg tablet 10 mg PO BID PRN (Reason: Nausea And Vomiting) fluticasone propion-salmeterol [Wixela Inhub] 250-50 mcg/dose blister with device 1 inh inhalation BID acetaminophen [Tylenol Extra Strength] 500 mg tablet 1,000 mg PO ONCE PRN (Reason: pain) albuterol sulfate 90 mcg/actuation HFA aerosol inhaler 2 puff inhalation Q6H PRN (Reason: Shortness Of Breath Or Wheezing) albuterol sulfate 2.5 mg /3 mL (0.083 %) solution for nebulization 2.5 mg inhalation Q4H PRN (Reason: for wheezing) imipramine HCl 10 mg tablet 20 mg PO DAILY Qty: 60 6RF rabeprazole [AcipHex] 20 mg tablet,delayed release (DR/EC) 20 mg PO DAILY Qty: 90 3RF Interventions: ED Discharge Assessment Last Done: 09/25/24 06:34 Discharge Date/Time: 09/25/24 06:36 Print Language: Belgian
[2024-09-25 03:03] LABS: Influenza A PCR NEGATIVE (Negative); Influenza B PCR NEGATIVE (Negative); Resp Syncy Virus RNA Qual PCR NEGATIVE (Negative); SARS COV2 PCR INHOUSE POSITIVE (Negative)
[2024-09-25 03:09] LABS: Alkaline Phosphatase 90 U/L (39-117)
[2024-09-25 03:14] VITALS: BP 167/68; PULSE 65; RESP 20; TEMP 36.4; O2SAT 97
[2024-09-25] MEDS: ondansetron HCL 4 MG/2 ML VIAL IVPUSH (03:25)
[2024-09-25] MEDS: Magnesium Sulfate/H2O 2 GM/50 ML PIGGYBACK IV (03:25)
[2024-09-25] MEDS: Morphine Sulfate 4 MG/ML CARTRIDGE IVPUSH (03:25)
[2024-09-25] MEDS: 0.9 % Sodium Chloride 1,000 ML 999 ML IV (03:26)
[2024-09-25 05:36] VITALS: BP 155/72; PULSE 77; RESP 16; TEMP 36.6; O2SAT 97
--- NOTE | 2024-09-25 05:36 | MHC.EDTECH ---
Rounds and vitals completed,patient is resting quietly,call sanchez in reach
[2024-09-25] MEDS: Albuterol Sulfate 2.5 MG, Albuterol/Iprat 2.5/0.5MG 3 ML 3 ML INHALE (05:58)
[2024-09-25 06:02] VITALS: PULSE 73; RESP 16; O2SAT 95
[2024-09-25] MEDS: methylPREDNISolone Sod Succ 125 MG/2 ML VIAL IVPUSH (06:16)
--- NOTE | 2024-09-25 06:22 | PC.NURSE ---
PT AMBULATED WITH THIS RN TO AND FROM BATHROOM
[2024-09-25 06:34] VITALS: BP 147/63; PULSE 73; RESP 16; TEMP 36.6; O2SAT 96
== END 2024-09-25 06:36 | disposition home or self-care (01) ==
PROVIDERS: Emergency Provider Internal Medicine
DX: U07.1 COVID-19 (principal); J44.9 Chronic obstructive pulmonary disease, unspecified; R11.2 Nausea with vomiting, unspecified; R06.02 Shortness of breath; R94.31 Abnormal electrocardiogram [ECG] [EKG]; R05.9 Cough, unspecified; R51.9 Headache, unspecified; Z87.891 Personal history of nicotine dependence; Z79.899 Other long term (current) drug therapy
CPT/HCPCS: 0241U; 36415; 71045; 80053; 80076; 82248; 82803; 83735; 84484; 85025; 93005; 94640; 96361; 96365; 96375; 99284; 99285; J2270; J2405; J2919; J3475

== ENCOUNTER → 2024-09-25 02:21 | Outpatient (BNV) | payer MEDICARE, SELFPAY | PROVIDERS: Emergency Provider Internal Medicine; Visit Provider Internal Medicine | DX: R06.02 Shortness of breath (principal); R94.31 Abnormal electrocardiogram [ECG] [EKG] | CPT/HCPCS: 93010 ==

== ENCOUNTER → 2024-09-25 02:25 | Outpatient (BNV) | payer MEDICARE, SELFPAY | PROVIDERS: Emergency Provider Internal Medicine; Visit Provider General Practice | DX: R06.02 Shortness of breath (principal) | CPT/HCPCS: 71045 ==

== ENCOUNTER 2024-11-11 06:54 | Emergency (ER) | payer MEDICARE, SELFPAY ==
--- NOTE | ~2024-11-11 | XR_ITS ---
EXAMINATION: XR CHEST CLINICAL INFORMATION: SOB COMPARISON: 09/25/2024. TECHNIQUE: 2 views of the chest were obtained. FINDINGS: The cardiac, hilar, and mediastinal contours are normal. The lungs are diffusely hyperaerated, however clear bilaterally. There is no pneumothorax or pleural effusion. No soft tissue abnormality aside from vascular calcification. Osteopenia. Old fracture right proximal humerus. Chronic appearing wedge compression deformity mid thoracic spine. XR/XR chest 2V IMPRESSION: 1. COPD, with no active pulmonary disease. Electronically signed by: Michael Palm MD 11/11/2024 08:19 AM EST
--- NOTE | 2024-11-11 07:21 | ECG_ITS ---
Test Reason : cp Blood Pressure : */* mmHG Vent. Rate : 63 BPM Atrial Rate : 63 BPM P-R Int : 158 ms QRS Dur : 72 ms QT Int : 430 ms P-R-T Axes : 58 22 84 degrees QTcB Int : 440 ms Normal sinus rhythm Possible Inferior infarct (cited on or before 25-Aug-2019) Abnormal ECG When compared with ECG of 25-Sep-2024 02:21, No significant change was found Referred By: [place] Electronically Signed By: BREE PAIGE
[2024-11-11 07:23] VITALS: BP 124/75; PULSE 66; RESP 12; TEMP 36.7; O2SAT 94; BMI 39.3
--- NOTE | 2024-11-11 07:25 | ED_ITS ---
HPI - SOB/Dyspnea General Chief Complaint: Dyspnea Stated Complaint: COPD Time Seen by Provider: 11/11/24 07:11 Source: patient Mode of arrival: ambulatory Limitations: no limitations History of Present Illness HPI Narrative: This is a shira 84 years old patient with a history of COPD presented to the emergency department ambulatory with a chief complaint of shortness of breath for about a week. Denies any fever chills. Says she feels congested. MD elicited complaint: shortness of breath Pertinent past history: COPD Onset (ago): week(s) (1) Timing: intermittent Severity: moderate Exacerbating factors: nothing Relieving factors: nothing Known history of: COPD Associated symptoms: denies other symptoms Related Data Home oxygen amount: none Home Medications ?Medication ?Instructions ?Recorded ?Confirmed hydrochlorothiazide 25 mg tablet 25 mg PO DAILY 06/15/20 09/16/24 levothyroxine 50 mcg tablet 50 mcg PO DAILY 06/15/20 09/16/24 metoprolol succinate 50 mg 50 mg PO DAILY 06/15/20 09/16/24 tablet,extended release 24 hr aspirin 81 mg tablet,delayed 81 mg PO DAILY 03/11/21 09/16/24 release oxycodone 5 mg tablet 5 mg PO QID PRN Pain 11/16/21 09/16/24 tramadol 50 mg tablet 50 mg PO BID PRN Pain 11/16/21 09/16/24 prochlorperazine maleate 10 mg 10 mg PO BID PRN Nausea And 03/13/24 09/16/24 tablet Vomiting albuterol sulfate 2.5 mg/3 mL 2.5 mg inhalation Q4H PRN for 03/25/24 09/16/24 (0.083 %) solution for nebulization wheezing acetaminophen 500 mg tablet 1,000 mg PO ONCE PRN pain 06/05/24 09/16/24 (Tylenol Extra Strength) albuterol sulfate 90 mcg/actuation 2 puff inhalation Q6H PRN 06/05/24 09/16/24 aerosol inhaler Shortness Of Breath Or Wheezing fluticasone 250 mcg-salmeterol 50 1 inh inhalation BID 06/05/24 09/16/24 mcg/dose blistr powdr for inhalation (Wixela Inhub) Previous Rx's ?Medication ?Instructions ?Recorded budesonide 3 mg 6 mg (2 x 3 mg) PO QAM #180 ea 06/04/24 capsule,delayed,extended release imipramine HCl 10 mg tablet 20 mg (2 x 10 mg) PO DAILY #60 tabs 06/26/24 rabeprazole 20 mg tablet,delayed 20 mg PO DAILY #90 tabs 06/26/24 release (AcipHex) tiotropium bromide 18 mcg capsule 18 mcg inhalation DAILY copd 90 07/15/24 with inhalation device days #90 inhalations benzonatate 200 mg capsule 200 mg PO TID PRN cough #30 caps 09/25/24 prednisone 20 mg tablet 40 mg (2 x 20 mg) PO DAILY #10 tabs 09/25/24 prednisone 20 mg tablet 60 mg (3 x 20 mg) PO DAILY #12 tabs 11/11/24 Allergies Allergy/AdvReac Type Severity Reaction Status Date / Time gabapentin Allergy Severe severe Verified 11/11/24 07:24 urinary incont. codeine [CODEINE] Allergy Intermediate Rash Verified 11/11/24 07:24 fish derived [FISH] Allergy Intermediate HIVES Verified 11/11/24 07:24 Iodinated Contrast Media Allergy Intermediate HIVES Verified 11/11/24 07:24 [IV Dye, Iodine Containing] nitrofurantoin Allergy Intermediate HIVES Verified 11/11/24 07:24 [Nitrofurantoin] Sulfa (Sulfonamide Allergy Intermediate RASH Verified 11/11/24 07:24 Antibiotics) [SULFA (SULFONAMIDE ANTIBIOTICS)] valsartan [From DIOVAN] Allergy Intermediate HIVES Verified 11/11/24 07:24 vancomycin [VANCOMYCIN] Allergy Intermediate RASH Verified 11/11/24 07:24 Penicillins [PENICILLINS] Allergy Mild RASH Verified 11/11/24 07:24 adhesive [ADHESIVE] Allergy Unknown UNKNOWN Verified 11/11/24 07:24 hydrocodone [Vicodin] Allergy Unknown Unknown Verified 11/11/24 07:24 ibuprofen [IBUPROFEN] AdvReac Unknown UNKNOWN Verified 11/11/24 07:24 Review of Systems 2 Cardiovascular: Cardiovascular: Reports no additional cardiovascular complaints and Reports dyspnea Respiratory: Respiratory: Reports dyspnea PMFSH Past Medical History Attestation statement: The following information was validated with the patient. 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 difficile colitis Breast cancer Surgical History History of esophagogastroduodenoscopy (EGD) H/O colonoscopy H/O lymph node biopsy Hx of cataract surgery History of tonsillectomy and adenoidectomy H/O hysterectomy for benign disease History of total bilateral knee replacement H/O kyphoplasty Family History Family History Father No problems noted. Mother Breast cancer Sister Breast cancer Social History Social History Household Members: Children Housing: House Are you a primary caregiver services home to a significant other at home: No Do you presently have visiting nurse or other home services: No Alcohol intake: never Patient Tobacco Use Status: Former Tobacco user Substance Use Type: Marijuana Advance Directives: No Advance Directives Information Provided: Yes service: No Current occupational status: retired Physical Exam 2 Vital Signs: Vital Signs: Last Vital Signs Temp 98.1 F 11/11/24 07:23 Pulse 72 11/11/24 08:25 Resp 18 11/11/24 08:25 BP 160/76 H 11/11/24 08:25 Pulse Ox 96 11/11/24 08:25 O2 Del Method Room Air 11/11/24 08:25 BMI result Body Mass Index 39.3 No acute distress Const: General: cooperative Nutritional Appearance: well nourished O rientation/consciousness: patient oriented x3 HEENT: Head: Yes normal to inspection Mouth: Normal oral and palatal mucosa present Neck: Neck: Yes normal visual inspection, Yes full ROM and Yes no lymphadenopathy Chest: Chest palpation & inspection: normal inspection of the chest Resp: Auscultation: rhonchi Cardio: Jugular venous distension: no JVD Rate: regular rate Rhythm: r egular rhythm GI: Inspection: Yes normal to inspection Palpation (GI): Soft to palpation, not firm, nontender and no guarding Skin: General skin exam: no rashes or lesions noted and elasticity normal L esions: no lesions Rashes: no rashes Neuro: General: patient oriented x3 Cranial nerves: Yes CN's II-XII intact bilaterally Course Reevaluation(s) Reevaluation #1: Re-examination she is feeling better, chest x-ray normal, labs okay anticipate discharge Medications Administered Discontinued Medications Generic Name Dose Route Start Last Admin Trade Name Freq PRN Reason Stop Dose Admin Albuterol Sulfate 2.5 mg/ 0 mg 11/11/24 07:30 11/11/24 07:35 Albuterol/Ipratropium 3 ml INHALE 11/11/24 07:31 5 dose ONCE ONE Administration Methylprednisolone Sodium Succinate 125 mg 11/11/24 07:22 11/11/24 07:38 Methylprednisolone Sod Succ 125 Mg/2 Ml Vial IVPUSH 11/11/24 07:23 125 mg ONCE ONE Administration Medical Decision Making Medical Decision Making [facility] Narrative: Patient presented to the emergency department with shortness of breath we will obtain a chest x-ray labs Differential Diagnosis Differential Diagnoses: The differential diagnosis associated with the presentation includes COPD exacerbation/pneumonia/CHF Admission/Observation Consideration of admission/observation: Escalation of care including admission/observation considered Lab Data [facility] Lab Attestation statement: I reviewed the patient's lab results. 11/11/24 07:34 11/11/24 08:30 Labs: Lab Results 11/11/24 11/11/24 11/11/24 Range/Units 07:34 07:42 08:30 WBC 9.8 (4.8-10.8) X10*3/uL RBC 4.54 (4.20-5.50) X10*6/uL Hgb 14.3 (12.0-16.0) g/dl Hct 43.4 (37.0-47.0) % MCV 95.6 (80.0-98.0) fL MCH 31.5 (27.0-33.0) pg MCHC 32.9 (31.0-35.0) g/dl RDW 13.6 (11.0-16.0) % Plt Count 311 (160-400) X10*3/uL MPV 9.9 (9.4-12.3) fL Immature Gran % (Auto) 0.9 H (0.0-0.4) % Neut % (Auto) 73.4 H (45-73) % Lymph % (Auto) 15.4 L (20-40) % Lares % (Auto) 7.1 (2-11) % Eos % (Auto) 2.5 (0-4) % Baso % (Auto) 0.7 (0-2) % Lymph # (Auto) 1.5 (1.2-4.9) X10*3/uL Lares # (Auto) 0.7 (0.1-1.2) X10*3/uL Eos # (Auto) 0.2 (0.0-0.4) X10*3/uL Baso # (Auto) 0.1 (0.0-0.2) X10*3/uL Abs Immat Gran (auto) 0.09 H (0.00-0.03) X10*3/uL Absolute Neuts (auto) 7.2 (2.0-8.3) x10*3/uL Absolute Nucleated RBC 0.000 (0.0-0.012) X10*3/uL Nucleated RBC % (auto) 0.0 (0.0-0.2) /100WBC Sodium 140 (135-145) mmol/L Potassium 3.7 (3.3-5.1) mmol/L Chloride 103 (96-108) mmol/L Carbon Dioxide 27 (22-29) mmol/L Anion Gap 14 (12-20) BUN 26 H (9-16) mg/dL Creatinine 1.35 (0.5-1.4) mg/dL Estim Creat Clear Calc 29.9 Estimated GFR 37 Random Glucose 103 (60-115) mg/dL Calcium 10.3 H (8.4-10.2) mg/dL Total Bilirubin 0.7 (0.0-1.0) mg/dL AST 31 (5-31) U/L ALT 16 (0-31) U/L Alkaline Phosphatase 87 (39-117) U/L Troponin I High Sens 5.0 (<3.5-17.0) ng/L B-Natriuretic Peptide 98 (<100) pg/mL Total Protein 8.2 H (6.5-8.0) g/dL Albumin 3.9 (3.5-5.0) g/dL Influenza Type A (PCR) NEGATIVE (Negative) Influenza Type B (PCR) NEGATIVE (Negative) RSV RNA Qual (PCR) NEGATIVE (Negative) SARS-CoV-2 RNA (RT-PCR) NEGATIVE (Negative) Independent Interpretation I performed an independent interpretation of an: Plain X-Ray Interpretation: NAD Radiology Impression Discussion of test interpretation with radiology: I have reviewed the radiologist's reading. Radiologist Impression: COPD NAD External Record Review External record reviewed: Inpatient record Chronic Conditions Patient?s care impacted by: Other (copd) Discharge Plan Discharge Clinical Impression: Chronic obstructive pulmonary disease with (acute) exacerbation Patient Disposition: Home, Self-Care Instructions: COPD (Chronic Obstructive Pulmonary Disease) (DC) Additional Instructions: Follow-up with your primary care physician return to the emergency room if you worse your chest x-ray was normal no pneumonia viral panel negative including negative flu ,negative COVID Prescriptions: New prednisone 20 mg tablet 60 mg PO DAILY Qty: 12 0RF Rx Instructions: start tomorrow No Action budesonide 3 mg capsule,delayed,extend.release 6 mg PO QAM Qty: 180 1RF tiotropium bromide 18 mcg capsule, w/inhalation device 18 mcg inhalation DAILY 90 Days Qty: 90 3RF Rx Instructions: pt. needs the inhalation device used for Handihalor aspirin [Aspir-81] 81 mg Tablet,Delayed Release (Dr/Ec) 81 mg PO DAILY benzonatate 200 mg capsule 200 mg PO TID PRN (Reason: cough) Qty: 30 0RF prednisone 20 mg tablet 40 mg PO DAILY Qty: 10 0RF metoprolol succinate 50 mg tablet extended release 24 hr 50 mg PO DAILY hydrochlorothiazide 25 mg tablet 25 mg PO DAILY levothyroxine 50 mcg tablet 50 mcg PO DAILY oxycodone 5 mg tablet 5 mg PO QID PRN (Reason: Pain) tramadol 50 mg tablet 50 mg PO BID PRN (Reason: Pain) prochlorperazine maleate 10 mg tablet 10 mg PO BID PRN (Reason: Nausea And Vomiting) fluticasone propion-salmeterol [Wixela Inhub] 250-50 mcg/dose blister with device 1 inh inhalation BID acetaminophen [Tylenol Extra Strength] 500 mg tablet 1,000 mg PO ONCE PRN (Reason: pain) albuterol sulfate 90 mcg/actuation HFA aerosol inhaler 2 puff inhalation Q6H PRN (Reason: Shortness Of Breath Or Wheezing) albuterol sulfate 2.5 mg /3 mL (0.083 %) solution for nebulization 2.5 mg inhalation Q4H PRN (Reason: for wheezing) imipramine HCl 10 mg tablet 20 mg PO DAILY Qty: 60 6RF rabeprazole [AcipHex] 20 mg tablet,delayed release (DR/EC) 20 mg PO DAILY Qty: 90 3RF Referrals: John Thao MD [Primary Care Provider] - 2 days Print Language: Paraguayan
[2024-11-11 07:30] VITALS: PULSE 76; RESP 21; O2SAT 95
[2024-11-11] MEDS: Albuterol Sulfate 2.5 MG, Albuterol/Iprat 2.5/0.5MG 3 ML 3 ML INHALE (07:35)
[2024-11-11] MEDS: methylPREDNISolone Sod Succ 125 MG/2 ML VIAL IVPUSH (07:38)
[2024-11-11 07:45] LABS: MANUAL DIFF FLAG NO
[2024-11-11 07:50] LABS: Basophils Absolute Auto 0.1 X10*3/uL (0.0-0.2); Basophils Percent Auto 0.7 % (0-2); Eosinophils Absolute Auto 0.2 X10*3/uL (0.0-0.4); Eosinophils Percent Auto 2.5 % (0-4); Hematocrit 43.4 % (37.0-47.0); Hemoglobin 14.3 g/dl (12.0-16.0); Imm Gran Abs Auto 0.09 X10*3/uL (0.00-0.03); Imm Gran Pct Auto 0.9 % (0.0-0.4); Lymphocytes Absolute Auto 1.5 X10*3/uL (1.2-4.9); Lymphocytes Percent Auto 15.4 % (20-40); Mean Corpuscular HGB Conc 32.9 g/dl (31.0-35.0); Mean Corpuscular Hemoglobin 31.5 pg (27.0-33.0); Mean Corpuscular Volume 95.6 fL (80.0-98.0); Mean Platelet Volume 9.9 fL (9.4-12.3); Monocytes Absolute Auto 0.7 X10*3/uL (0.1-1.2); Monocytes Percent Auto 7.1 % (2-11); Neutrophils Absolute Auto 7.2 x10*3/uL (2.0-8.3); Neutrophils Percent Auto 73.4 % (45-73); Platelet Count 311 X10*3/uL (160-400); Red Blood Count 4.54 X10*6/uL (4.20-5.50); Red Cell Distribution Width 13.6 % (11.0-16.0); White Blood Count 9.8 X10*3/uL (4.8-10.8)
--- OUTSIDE RECORDS SUMMARY | 2024-11-11 07:56 | XMS_ITS | Clinical Summary ---
Author Organization [facility] Address [address] [place] [address] Phone Care Team Providers Care [employer] As[employer]er [employer] Gluer Name Role Phone John Thao MD Primary Care Provider [phone] Allergies Active Allergy Reactions Criticality Noted Date Comments Penicillins 07/14/2022 Sulfa Antibiotics 07/14/2022 Valsartan 07/14/2022 Vancomycin 07/14/2022 Medications aspirin (ST STEVEN) 81 MG EC tablet Take 1 tablet by mouth 1 (one) time each day Active fluticasone-anais meterol (ADVAIR DISKUS) 500-50 MCG/DOSE diskus inhaler Active hydroCHLOROthia zide (HYDRODIURIL) 25 MG tablet Comments: Filled Date: May 24 2018 1:29PM Patient Notes: TAKE 1 TABLET BY MOUTH EVERY DAY Duration: 30 8 Active levothyroxine (SYNTHROID, LEVOTHROID) 50 MCG tablet Take 1 tablet by mouth 1 (one) time each day Active omeprazole (PriLOSEC) [address] capsule Take 1 capsule by mouth 1 (one) time each day Active oxyCODONE (OXY-IR) 5 MG immediate release capsule Comments: Patient Notes: prn Active traMADol (ULTRAM) 50 MG tablet Take 1 tablet by mouth 2 (two) times a day Active imipramine (TOFRANIL) 10 MG tablet Take 10 mg by mouth at bed time 1 Active Spiriva HandiHaler 18 MCG per inhalation capsule INHALE 1 PUFF BY MOUTH VIA HANDIHANDLER DAILY 1 Active D3-1000 25 MCG (1000 UT) capsule Take 1,000 Units by mouth 1 (one) time each day 2 Active metoprolol succinate XL (TOPROL XL) 50 MG 24 hr tablet Take 50 mg by mouth 1 (one) time each day 3 Active Active Problems Problem Noted Date Diagnosed Date Hypertensive chronic kidney disease, unspecified, with chronic kidney disease stage I through stage IV, or unspecified 10/29/2020 Stage 3a chronic kidney disease 10/29/2020 Blood in urine 10/28/2020 Resolved Problems Problem Noted Date Diagnosed Date Resolved Date Chronic kidney disease stage 1 10/28/2020 10/29/2020 Immunizations Name Administration Dates Next Due Influenza, Recombinant, Quadrivalent, Pf 020 Pfizer SARS-COV-2 11/24/2020,11/03/2020 Pneumococcal Conjugate 13-Valent 09/07/2017 Family History Medical History Relation Comments Diabetes Father Heart disease Father Hypertension Father Cancer Mother lung Hypertension Mother Cancer Sibling 1 Heart disease Sibling 2 Relation Status Comments Father Mother Sibling 1 Sibling 2 Social History Tobacco Use Types Packs/Day Years Used Date Smoking Tobacco: Former Smokeless Tobacco: Never Tobacco Cessation:Counseling Given: Not Answered Alcohol Use Standard Drinks/Week Comments Yes 0 (1 standard drink = 0.6 oz pure alcohol) Alcoholic Drinks/day: Occasional social drink Comments Unknown Sex and Gender Information Value Date Recorded Sex Assigned at Not on file Legal Sex Female 5:12 PM EST Gender Identity Not on file Sexual Orientation Not on file Last Filed Vital Signs Vital Sign Reading Time Taken Comments Blood Pressure 132/82 05/15/2023 1:42 PM EDT Pulse 89 05/15/2023 1:42 PM EDT Temperature - - Respiratory Rate - - Oxygen Saturation 97% 05/15/2023 1:42 PM EDT Inhaled Oxygen Concentration - - Weight 88.5 kg (195 lb) 05/15/2023 1:42 PM EDT Height 149.9 cm (4' 11 ) 11/21/2019 12:00 PM EST Body Mass Index 39.39 11/21/2019 12:00 PM EST Plan of Treatment Health Maintenance Due Date Last Done Comments Pneumococcal Vaccine: 65+ Ye ars (2 of 2 - PPSV23 or PCV20) 11/02/2017 09/07/2017 Influenza Vaccine (#1) 2024 06/15/2020 Hepatitis B Vaccine Aged Out No longe r eligible based on patient's age to complete this topic Insurance [facility] MEDICARE MEDICAID [place] [facility] [place] Care Teams [employer]inated [employer]er And Gluer Relationship Specialty Start Date End Date John Thao MD [address] [place] PCP - General 09/28/20
--- OUTSIDE RECORDS SUMMARY | 2024-11-11 07:56 | XMS_ITS | Clinical Summary ---
Author Organization [facility] Address [id number] [place] [id number] Care Team Providers Care Senior Medical Billing Specialist Name Role Phone John Thao MD Primary Care Provider [phone] Social History Tobacco Use Types Packs/Day Years Used Date Smoking Tobacco: Never Assessed Comments Unknown Sex and Gender Information Value Date Recorded Sex Assigned at Not on file Legal Sex Female 4:24 PM EST Gender Identity Not on file Sexual Orientation Not on file Plan of Treatment Health Maintenance Due Date Last Done Comments DTaP,Tdap,and Td Vaccines (1 - Tdap) 1959 Pneumococcal Vaccine: 50+ Ye ars (1 of 1 - PCV) 1990 Zoster Vaccines (1 of 2) 1990 RSV Immunization Patients 60 + Years Old (1 - 1-dose 75+ series) 2015 COVID-19 Vaccine (2023-2 5 season) 2024 Influenza Vaccine (#1) 2024 HIB Vaccines Aged Out No longer eligi ble based on patient's age to complete this topic HPV Vaccines Aged Out No longer eligi ble based on patient's age to complete this topic Hepatitis A Vaccines Aged Out No long er eligible based on patient's age to complete this topic Hepatitis B Vaccines Aged Out No long er eligible based on patient's age to complete this topic IPV Vaccines Aged Out No longer eligi ble based on patient's age to complete this topic MMR Vaccines Aged Out No longer eligi ble based on patient's age to complete this topic Meningococcal ACWY Vaccine Aged Out N o longer eligible based on patient's age to complete this topic Meningococcal B Vacine Aged Out No lo nger eligible based on patient's age to complete this topic RSV Immunization Patients Un earl 20 months Aged Out No longer eligible b ased on patient's age to complete this topic Varicella Vaccines Aged Out No longer eligible based on patient's age to complete this topic Care Teams Senior Medical Billing Specialist Relationship Specialty Start Date End Date John Thao MD [address] [place] [address] [place] PCP - [employer] 10/31/18
[2024-11-11 08:11] LABS: B Type Natriuretic Peptide 98 pg/mL (<100)
[2024-11-11 08:24] LABS: Influenza A PCR NEGATIVE (Negative); Influenza B PCR NEGATIVE (Negative); Resp Syncy Virus RNA Qual PCR NEGATIVE (Negative); SARS COV2 PCR INHOUSE NEGATIVE (Negative)
[2024-11-11 08:25] VITALS: BP 160/76; PULSE 72; RESP 18; O2SAT 96
[2024-11-11 08:59] LABS: Anion Gap 14 (12-20)
[2024-11-11 09:08] LABS: Alanine Aminotransferase 16 U/L (0-31); Albumin Level 3.9 g/dL (3.5-5.0); Alkaline Phosphatase 87 U/L (39-117); Aspartate Amino Transferase 31 U/L (5-31); Bilirubin Total 0.7 mg/dL (0.0-1.0); Blood Urea Nitrogen 26 mg/dL (9-16); Calcium 10.3 mg/dL (8.4-10.2); Carbon Dioxide 27 mmol/L (22-29); Chloride 103 mmol/L (96-108); Creatinine Clr Calc Pharmacy 29.9; Estimated Glomerular Filt Rate 37; Glucose Random 103 mg/dL (60-115); Potassium 3.7 mmol/L (3.3-5.1); Sodium 140 mmol/L (135-145); Total Protein 8.2 g/dL (6.5-8.0)
[2024-11-11 09:35] VITALS: BP 160/76; PULSE 72; RESP 18; TEMP 36.7; O2SAT 96
== END 2024-11-11 09:36 | disposition home or self-care (01) ==
PROVIDERS: Emergency Provider Emergency Medicine; PCP Internal Medicine
DX: J44.1 Chronic obstructive pulmonary disease with (acute) exacerbation (principal); R06.02 Shortness of breath; R07.89 Other chest pain; R94.31 Abnormal electrocardiogram [ECG] [EKG]; Z79.899 Other long term (current) drug therapy; Z03.818 Encounter for observation for suspected exposure to other biological agents ruled out
CPT/HCPCS: 0241U; 71046; 80053; 83880; 84484; 85025; 93005; 94640; 96374; 99284; J2919

== ENCOUNTER → 2024-11-11 07:21 | Outpatient (BNV) | payer MEDICARE, SELFPAY | PROVIDERS: Emergency Provider Emergency Medicine; PCP Internal Medicine; Visit Provider Internal Medicine | DX: R07.9 Chest pain, unspecified (principal); R94.31 Abnormal electrocardiogram [ECG] [EKG] | CPT/HCPCS: 93010 ==

== ENCOUNTER → 2024-11-11 07:24 | Outpatient (BNV) | payer MEDICARE, SELFPAY | PROVIDERS: Emergency Provider Emergency Medicine; PCP Internal Medicine; Visit Provider Radiology Diagnostic Radiology | DX: J44.9 Chronic obstructive pulmonary disease, unspecified (principal) | CPT/HCPCS: 71046 ==

== ENCOUNTER 2024-11-13 10:03 | Outpatient (AMB) | payer MEDICARE, SELFPAY ==
[2024-11-13 10:16] VITALS: BP 130/84; PULSE 87; O2SAT 96; BMI 39.0
--- NOTE | 2024-11-13 10:16 | MHC.OFFVIS ---
Vital Signs 11/13/24 10:16 Height 4 ft 11 in Weight 192 lb 14.472 oz BMI 39.0 BP 130/84 Blood Pressure Location Lt brachial Position Sitting Pulse 87 Pulse Source Pulse Oximeter Pulse Oximetry (%) 96 Oxygen Delivery Method Room Air Intake Visit Reasons: copd Intake Note: pt is here for follow up of ER and states she is still short of breath exertion and with speaking, heavy in chest and unable to breath in nose, and she has nose bleeds. 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 codeine [CODEINE] Allergy (Intermediate, Verified 11/13/24 10:34) Rash fish derived [FISH] Allergy (Intermediate, Verified 11/13/24 10:34) HIVES Iodinated Contrast Media [IV Dye, Iodine Containing] Allergy (Intermediate, Verified 11/13/24 10:34) HIVES nitrofurantoin [Nitrofurantoin] Allergy (Intermediate, Verified 11/13/24 10:34) HIVES Sulfa (Sulfonamide Antibiotics) [SULFA (SULFONAMIDE ANTIBIOTICS)] Allergy (Intermediate, Verified 11/13/24 10:34) RASH valsartan [From DIOVAN] Allergy (Intermediate, Verified 11/13/24 10:34) HIVES vancomycin [VANCOMYCIN] Allergy (Intermediate, Verified 11/13/24 10:34) RASH Penicillins [PENICILLINS] Allergy (Mild, Verified 11/13/24 10:34) RASH adhesive [ADHESIVE] Allergy (Unknown, Verified 11/13/24 10:34) UNKNOWN hydrocodone [Vicodin] Allergy (Unknown, Verified 11/13/24 10:34) Unknown ibuprofen [IBUPROFEN] Adverse Reaction (Unknown, Verified 11/13/24 10:34) UNKNOWN Medication List - Last Reconciled 11/13/24 by Caro Dobson MD acetaminophen (Tylenol Extra Strength) 1,000 mg PO ONCE PRN albuterol sulfate 90 mcg/actuation 2 puffs inhalation Q6H PRN albuterol sulfate 2.5 mg inhalation Q4H PRN aspirin 81 mg PO DAILY benzonatate 200 mg PO TID PRN budesonide DR-ER 6 mg (2 x 3 mg) PO QAM fluticasone propion-salmeterol 250-50 mcg/dose (Wixela Inhub) 1 inh inhalation BID hydrochlorothiazide 25 mg PO DAILY imipramine HCl 20 mg (2 x 10 mg) PO DAILY levothyroxine 50 mcg PO DAILY metoprolol succinate ER 50 mg PO DAILY oxycodone 5 mg PO QID PRN prednisone 60 mg (3 x 20 mg) PO DAILY prochlorperazine maleate 10 mg PO BID PRN rabeprazole (AcipHex) 20 mg PO DAILY tiotropium bromide 18 mcg inhalation DAILY 90 days tramadol 50 mg PO BID PRN Do you need a note to return to daycare/school/sports/work: No HPI HPI copd: Details: TELLO IS 84 YEARS OLD FEMALE WITH MODERATELY ADVANCED CHRONIC OBSTRUCTIVE PULMONARY DISEASE, SHE WAS SEEN IN THE EMERGENCY ROOM ABOUT 6 WEEKS AGO AND THEN 2 DAYS AGO, WITH THE CHIEF COMPLAINT OF HAVING DIFFICULTY IN BREATHING. SHE DENIES ANY FEVER OR CHILLS. .HAS BEEN MORE ANXIOUS THAN USUAL FEELS MORE CONGESTED IN THE NOSE AND SINUSES . WHEN SEEN IN THE EMERGENCY ROOM ON 11/11, JUST 2 DAYS AGO, SHE DID NOT HAVE ANY EVIDENCE OF CHEST INFECTION, CHEST X-RAY WAS UNREMARKABLE. SHE WAS STARTED ON PREDNISONE 20 MG T.I.D. TO BE TAKEN FOR 3 DAYS, AND ADVISED TO CONTINUE HER PREVIOUS INHALERS, SHE ALSO HAS NEBULIZER AT HOME BUT HAS NOT USED IT FOR QUITE A FEW YEARS. TODAY DURING CONVERSATION, IT SEEMS THAT SHE IS QUITE ANXIOUS AND AFRAID THAT SHE MAY LOSE HER BREATH. I THINK IT SEEMS TO BE MORE ANXIETY THAN ANYTHING ELSE . 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 difficile colitis Breast cancer Surgical History History of esophagogastroduodenoscopy (EGD) H/O colonoscopy H/O lymph node biopsy Hx of cataract surgery History of tonsillectomy and adenoidectomy H/O hysterectomy for benign disease History of total bilateral knee replacement H/O kyphoplasty Family History Father No problems noted. Mother Breast cancer Sister Breast cancer Social History Household Members: Children Housing: House Are you a primary respiratory care practitioner to a significant other at home: No Do you presently have visiting nurse or other home services: No Alcohol intake: never Patient Tobacco Use Status: Former Tobacco user Substance Use Type: Marijuana service: No Current occupational status: retired Review of Systems Const All systems reviewed & are unremarkable except as noted in HPI and below Eyes Reports no additional complaints ENT Reports no additional complaints Card Denies chest pain, Denies irregular heart rhythm and Denies leg edema Resp Reports as per HPI GI Reports no additional complaints Reports no additional complaints Musc Reports abnormal gait (Needs the walker to ambulate) and Reports back pain Skin/Breast Reports system reviewed and no additional complaints, except as documented Neuro Reports abnormal gait (Needs the walker to ambulate) Psych Reports no additional complaints Endo Reports no additional complaints Physical Exam Vital Signs: Last Vital Signs Pulse 87 11/13/24 10:16 BP 130/84 11/13/24 10:16 Pulse Ox 96 11/13/24 10:16 Oxygen Delivery Method Room Air 11/13/24 10:16 BMI result Body Mass Index 39.0 Const Other: Grossly overweight General: comfortable, no acute distress, alert and awake Orientation/consciousness: patient oriented x3 HEENT Head: Yes normal to inspection General nose exam: No nasal polyps present and No nasal discharge present Face and sinus: Yes sinuses nontender Mouth: oropharynx normal Throat: Yes posterior oropharynx normal Eyes General: appearance normal, both eyes and all related structures Neck Neck: Yes normal visual inspection, Yes no lymphadenopathy (And no submandibular adenitis), Yes trachea midline and Yes no JVD Thyroid: Thyroid normal Chest Chest palpation & inspection: normal inspection of the chest, normal palpation of entire chest wall and no tenderness Resp Other: Percussion note is resonant, breath sounds are very distant with prolonged expiratory phase. No active wheezes or crepitations are heard today. Cardio Palpation: normal PMI Rate: regular rate Rhythm: regular rhythm Heart sounds: no gallops and no murmurs GI Palpation (GI): Soft to palpation, Tenderness to palpation present (GI), No hepatosplenomegaly present, Palpable mass present and Other GI palpation findings present (Abdomen is obese and somewhat protuberant) Auscultation: normal bowel sounds Back/Spine/Pelvis Thoracic/Lumbar Spine: thoracic and lumbar spine normal to inspection and thoraco-lumbar ROM limited Skin General skin exam: no rashes or lesions noted Neuro General: patient oriented x3, No gait normal (Gait unstable ,uses walker) and no focal motor deficits Cranial nerves: Yes CN's II-XII intact bilaterally Extrem General: Yes normal to inspection, Yes no clubbing, cyanosis or edema and Yes no calf tenderness Psych Appearance: grossly normal and well kempt Speech and movement: Normal speech and movement present Assessment & Plan Assessment & Plan (1) Asthma-COPD overlap syndrome: Comment: PATIENT DOES HAVE MODERATELY ADVANCED ASTHMA COPD SYNDROME, IT HAS BEEN STABLE AND CONTROLLED WITH HER CURRENT REGIMEN. HER FEELING OF MORE SHORT OF BREATH AND, CHEST CONGESTION SEEMS TO BE AGGRAVATED BY ANXIETY. Code(s): J44.9 - Chronic obstructive pulmonary disease, unspecified Category: Medical Plan: I TRY TO REASSURE HER AND TOLD HER THAT HER RESPIRATORY STATUS IS STABLE EXPECTED. HER SYMPTOMS MAINLY BECAUSE OF SOME NASAL CONGESTION, AND AGGRAVATED BY ANXIETY. ADVISED HER TO CONTINUE USING WIXELA 250-51 INHALATION B.I.D. AND SPIRIVA HANDIHALER 1 INHALATION DAILY, ALONG WITH ALBUTEROL 2 PUFFS Q 6 HOURS P.R.N.. PREDNISONE 20 MG B.I.D. FOR 2 DAYS THEN ONCE A DAY FOR 2 MORE DAYS. (2) Acute anxiety: Comment: PATIENT LIVES ALONE, HER LOCOMOTION IS SOMEWHAT IMPAIRED. SHE GETS VERY AND SHE WAS SENT PANICKY WHEN SHE HAS INCREASED SHORTNESS OF BREATH. THAT IS WHAT SEEMS TO BE GOING ON NOW. Code(s): F41.9 - Anxiety disorder, unspecified Category: Medical Plan: I HAVE TALKED TO HER IN DETAIL AND TRY TO REASSURE HER. ADVISE HER TO DO DEEP BREATHING EXERCISES WITH BREATH HOLDING AND PURSED LIP BREATHING TECHNIQUE TO OVERCOME ANY ACUTE ANXIETY. SHE WAS ASKING FOR AND ANXIOLYTIC MED OR FOR A SLEEP MED BUT I HAVE TRIED TO EXPLAINED TO HER THAT SHE CAN DO WITHOUT THEM FOR HER CONTINUED REASSURANCE I WOULD SEE HER BACK IN ABOUT 10 DAYS. Coding Level of Care Code Est Pt Level 3 (05774) Diagnoses Asthma-COPD overlap syndrome J44.9 Acute anxiety F41.9
--- OUTSIDE RECORDS SUMMARY | 2024-11-13 12:04 | XMS_ITS | Clinical Summary ---
Author Organization [facility] Address [address] [place] [address] Phone Care Team Providers Care Book Trimmer Name Role Phone John Thao MD Primary Care Provider [phone] Allergies Active Allergy Reactions Criticality Noted Date [...] patient's age to complete this topic Insurance [facility] MEDICARE [place] [facility] [place] Care Teams Book Trimmer Relationship Specialty Start Date End Date John Thao MD [id number] [place] PCP - General 09/28/20
--- OUTSIDE RECORDS SUMMARY | 2024-11-13 12:04 | XMS_ITS | Clinical Summary ---
Author Organization [facility] it[facility] Address [id number] [place] [id number] Care Team Providers Care Application Specialist Name Role Phone John Thao MD Primary Care Provider [phone] Social History Tobacco Use Types Packs/Day Years [...] age to complete this topic Care Teams Application Specialist Relationship Specialty Start Date End Date John Thao MD [address] [place] [address] Dr [place] PCP - General Box Blank Machine Operator 10/31/18
== END 2024-11-13 10:35 | disposition home or self-care (01) ==
PROVIDERS: PCP Internal Medicine; Visit Provider Internal Medicine
DX: J44.9 Chronic obstructive pulmonary disease, unspecified (principal); F41.9 Anxiety disorder, unspecified
CPT/HCPCS: 99213

== ENCOUNTER → 2024-11-13 10:03 | Outpatient (BNVA) | payer MEDICARE, SELFPAY | PROVIDERS: PCP Internal Medicine; Visit Provider Internal Medicine | DX: J44.9 Chronic obstructive pulmonary disease, unspecified (principal); F41.9 Anxiety disorder, unspecified | CPT/HCPCS: 99212 ==

== ENCOUNTER 2024-11-18 19:20 | Emergency (ER) | payer MEDICARE, SELFPAY ==
--- NOTE | 2024-11-18 | ECG_ITS ---
Test Reason : CP Blood Pressure : */* mmHG Vent. 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
--- NOTE | ~2024-11-18 | XR_ITS ---
CLINICAL HISTORY: chest pain, shortness of breath 1 view chest x-ray Comparison: 11/11/2024 Findings: Lungs are clear without acute infiltrates. Stable chronic bibasilar scarring. No pneumothorax. Heart size enlarged. No acute bony abnormalities. Impression: No acute processes This document has been electronically signed by: Mike Hilliard MD on 11/18/2024 22:02:39
[2024-11-18 19:39] VITALS: BP 140/91; BP 142/73; PULSE 71; PULSE 80; RESP 20; TEMP 36.3; O2SAT 98; BMI 41.8
--- NOTE | 2024-11-18 19:40 | ED_ITS ---
HPI - Chest Pain General Chief Complaint: Chest Pain Stated Complaint: hypertension 194/105, chest pain Time Seen by Provider: 11/18/24 19:27 Source: patient and EMS Mode of arrival: EMS Limitations: no limitations History of Present Illness ED Provider: Kellen Henderson NP HPI narrative: patient is an 84-year-old female with past medical history of asthma - COPD overlap, gout, obesity, breast cancer, ovarian cancer, lumbar spinal stenosis, hypothyroidism, hypertension who presents emergency department for evaluation of shortness of breath and chest pain. Reports that she awoke this morning feeling short of breath with chest pain described as a heaviness in the middle of her chest. She states that she thought things would get better throughout the day, she took her regular medication, she tried drinking some cranberry juice, she even applied her son's oxygen all of which provided her with no relief. Ultimately this evening she decided to call EMS for transport to the ED. the pain has been constant with varying intensity. Over the past couple of hours has developed nausea but no vomiting. She denies radiation of the pain. Related Data Home Medications ?Medication ?Instructions ?Recorded ?Confirmed hydrochlorothiazide 25 mg tablet 25 mg PO DAILY 06/15/20 11/13/24 levothyroxine 50 mcg tablet 50 mcg PO DAILY 06/15/20 11/13/24 metoprolol succinate 50 mg 50 mg PO DAILY 06/15/20 11/13/24 tablet,extended release 24 hr aspirin 81 mg tablet,delayed 81 mg PO DAILY 03/11/21 11/13/24 release oxycodone 5 mg tablet 5 mg PO QID PRN Pain 11/16/21 11/13/24 tramadol 50 mg tablet 50 mg PO BID PRN Pain 11/16/21 11/13/24 prochlorperazine maleate 10 mg 10 mg PO BID PRN Nausea And 03/13/24 11/13/24 tablet Vomiting albuterol sulfate 2.5 mg/3 mL 2.5 mg inhalation Q4H PRN for 03/25/24 11/13/24 (0.083 %) solution for nebulization wheezing acetaminophen 500 mg tablet 1,000 mg PO ONCE PRN pain 06/05/24 11/13/24 (Tylenol Extra Strength) albuterol sulfate 90 mcg/actuation 2 puff inhalation Q6H PRN 06/05/24 11/13/24 aerosol inhaler Shortness Of Breath Or Wheezing fluticasone 250 mcg-salmeterol 50 1 inh inhalation BID 06/05/24 11/13/24 mcg/dose blistr powdr for inhalation (Hasmukh Armasub) Previous Rx's ?Medication ?Instructions ?Recorded budesonide 3 mg 6 mg (2 x 3 mg) PO QAM #180 ea 06/04/24 capsule,delayed,extended release imipramine HCl 10 mg tablet 20 mg (2 x 10 mg) PO DAILY #60 tabs 06/26/24 rabeprazole 20 mg tablet,delayed 20 mg PO DAILY #90 tabs 06/26/24 release (AcipHex) tiotropium bromide 18 mcg capsule 18 mcg inhalation DAILY copd 90 07/15/24 with inhalation device days #90 inhalations benzonatate 200 mg capsule 200 mg PO TID PRN cough #30 caps 09/25/24 prednisone 20 mg tablet 60 mg (3 x 20 mg) PO DAILY #12 tabs 11/11/24 Allergies Allergy/AdvReac Type Severity Reaction Status Date / Time gabapentin Allergy Severe severe Verified 11/18/24 19:44 urinary incont. codeine [CODEINE] Allergy Intermediate Rash Verified 11/18/24 19:44 fish derived [FISH] Allergy Intermediate HIVES Verified 11/18/24 19:44 Iodinated Contrast Media Allergy Intermediate HIVES Verified 11/18/24 19:44 [IV Dye, Iodine Containing] nitrofurantoin Allergy Intermediate HIVES Verified 11/18/24 19:44 [Nitrofurantoin] Sulfa (Sulfonamide Allergy Intermediate RASH Verified 11/18/24 19:44 Antibiotics) [SULFA (SULFONAMIDE ANTIBIOTICS)] valsartan [From DIOVAN] Allergy Intermediate HIVES Verified 11/18/24 19:44 vancomycin [VANCOMYCIN] Allergy Intermediate RASH Verified 11/18/24 19:44 Penicillins [PENICILLINS] Allergy Mild RASH Verified 11/18/24 19:44 adhesive [ADHESIVE] Allergy Unknown UNKNOWN Verified 11/18/24 19:44 hydrocodone [Vicodin] Allergy Unknown Unknown Verified 11/13/24 10:34 ibuprofen [IBUPROFEN] AdvReac Unknown UNKNOWN Verified 11/13/24 10:34 Review of Systems 2 Review of Systems: Yes all other systems are reviewed and are negative PMFSH Past Medical History Attestation statement: The following information was validated with the patient. 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 difficile colitis Breast cancer Surgical History History of esophagogastroduodenoscopy (EGD) H/O colonoscopy H/O lymph node biopsy Hx of cataract surgery History of tonsillectomy and adenoidectomy H/O hysterectomy for benign disease History of total bilateral knee replacement H/O kyphoplasty Family History Family History Father No problems noted. Mother Breast cancer Sister Breast cancer Social History Social History Household Members: Children Housing: House Are you a primary manager wound care to a significant other at home: No Do you presently have visiting nurse or other home services: No Alcohol intake: never Patient Tobacco Use Status: Former Tobacco user Substance Use Type: Marijuana Advance Directives: No Advance Directives Information Provided: Yes Do you have a plan to hurt others: No Plan service: No Current occupational status: retired Physical Exam 2 Vital Signs: Vital Signs: Last Vital Signs Temp 97.4 F 11/18/24 19:39 Pulse 74 11/18/24 23:02 Resp 18 11/18/24 23:02 BP 156/100 H 11/18/24 23:02 Pulse Ox 95 11/18/24 23:02 O2 Del Method Room Air 11/18/24 23:02 BMI result Body Mass Index 41.8 Appearance: Alert.?Oriented to person, place and time. No acute distress.?Normal affect. Eyes: Pupils equal, round and reactive to light.? ENT: Pharynx normal.?? Neck: Normal inspection.? Neck supple.??No JVD. CVS: Heart sounds normal. Normal heart rate and rhythm.? Pulses normal.?? Chest: Tenderness upon palpation over the lower midsternal region pain reproducible to palpation Respiratory: No respiratory distress.? Lung sounds Mild expiratory wheezing, no hypoxia. Abdomen: Soft and non-tender. Normoactive bowel sounds. No pulsatile mass.?? Skin: Skin warm and dry.? Normal skin color.? ?? Extremities: No lower extremity edema.? No calf ttp? Neuro: Moves all extremities spontaneously. Sensation intact bilaterally. CN II- XII intact. No focal neuro deficits. Ambulates with normal steady gait. Course Reevaluation(s) Reevaluation #1: CBC reveals leukocytosis of 14,400 with left shift, no anemia or thrombocytopenia. No electrolyte derangement. LFTs unremarkable. High sensitive troponin within normal range, EKG nonischemic, given age and risk factors will obtain delta troponin.. BNP 65 clinically without signs of volume overload/CHF. Viral serologies are negative. Reevaluation #2: delta troponin is negative. About 30 minutes after arrival to emergency department pain had resolved and has remained pain-free over the past 5 hours. Patient states that she had leaves her symptoms were due to anxiety, she states it felt different than her COPD that she has experienced in the past. She is ambulatory with a steady gait, no shortness of breath or dyspnea on exertion. At this time feel that she is stable for discharge home, discussed strict return precautions. All questions answered Medications Administered Discontinued Medications Generic Name Dose Route Start Last Admin Trade Name Freq PRN Reason Stop Dose Admin Albuterol/Ipratropium 3 ml 11/18/24 20:09 11/18/24 22:04 Albuterol/Iprat 2.5/0.5mg 3 Ml Ampul.Neb INHALE 11/18/24 20:10 3 ml ONCE ONE Administration Aspirin 243 mg 11/18/24 20:00 11/18/24 20:08 Aspirin 81 Mg Tab.Chew PO 11/18/24 20:01 243 mg ONCE ONE Administration Methylprednisolone Sodium Succinate 80 mg 11/18/24 20:09 11/18/24 20:45 Methylprednisolone Sod Succ 125 Mg/2 Ml Vial IVPUSH 11/18/24 20:10 80 mg ONCE ONE Administration Medical Decision Making Medical Decision Making MDM Narrative: patient is an 84-year-old female with past medical history of asthma - COPD overlap, gout, obesity, breast cancer, ovarian cancer, lumbar spinal stenosis, hypothyroidism, hypertension who presents emergency department for evaluation of chest pain and shortness of breath as per HPI. She appears a bit anxious at the time of my evaluation but is easily calmed with verbal redirection. Her pain to the lower midsternal region is reproducible to palpation. EKG reveals normal sinus rhythm with ventricular rate of 77, QTC 475, normal BRAD, no ST elevation, no ST depression. lower suspicion for pulmonary embolism, will score low risk, no tachypnea hypoxia or tachycardia. Recent trauma or injury, unlikely pneumothorax. Denies recent URI symptoms to suggest viral illness /pneumonia. No associated abdominal tenderness to suggest acute hepatobiliary etiology or pancreatitis. Denies GERD symptoms, lower suspicion for gastritis, and no hematemesis to favor PUD. Overall, ACS is being considered given higher risk features. Will obtain CBC to evaluate for leukocytosis/ anemia, CMP and lipase to evaluate for abnormal electrolytes /abnormal renal function/ abnormal hepatic/biliary function, EKG and troponin to evaluate for ischemia/ACS. Chest x-ray to evaluate for consolidation/ infiltrate/ mass/ pulmonary congestion, ASA, pain control and reassessment. she received 2 of nitro pre-hospital. At this time she does endorse improvement in her pain, currently 2/10. Differential Diagnosis Differential Diagnoses: The differential diagnosis associated with the presentation includes (See narrative above) Admission/Observation Consideration of admission/observation: Escalation of care including admission/observation considered (See narrative above and course narrative for further detail) Lab Data MDM Lab Attestation statement: I reviewed the patient's lab results. 11/18/24 20:14 11/18/24 20:15 Labs: Lab Results 11/18/24 11/18/24 11/18/24 Range/Units 20:14 20:15 23:02 WBC 14.4 H (4.8-10.8) X10*3/uL RBC 4.78 (4.20-5.50) X10*6/uL Hgb 14.9 (12.0-16.0) g/dl Hct 46.0 (37.0-47.0) % MCV 96.2 (80.0-98.0) fL MCH 31.2 (27.0-33.0) pg MCHC 32.4 (31.0-35.0) g/dl RDW 13.6 (11.0-16.0) % Plt Count 304 (160-400) X10*3/uL MPV 10.1 (9.4-12.3) fL Immature Gran % (Auto) 3.7 H (0.0-0.4) % Neut % (Auto) 70.5 (45-73) % Lymph % (Auto) 17.3 L (20-40) % [place] % (Auto) 6.4 (2-11) % Eos % (Auto) 1.7 (0-4) % Baso % (Auto) 0.4 (0-2) % Lymph # (Auto) 2.5 (1.2-4.9) X10*3/uL [place] # (Auto) 0.9 (0.1-1.2) X10*3/uL Eos # (Auto) 0.3 (0.0-0.4) X10*3/uL Baso # (Auto) 0.1 (0.0-0.2) X10*3/uL Abs Immat Gran (auto) 0.53 H (0.00-0.03) X10*3/uL Absolute Neuts (auto) 10.1 H (2.0-8.3) x10*3/uL Absolute Nucleated RBC 0.000 (0.0-0.012) X10*3/uL Nucleated RBC % (auto) 0.0 (0.0-0.2) /100WBC PT 11.4 (10.9-12.4) SEC INR 1.0 (0.9-1.1) Sodium 140 (135-145) mmol/L Potassium 3.5 (3.3-5.1) mmol/L Chloride 101 (96-108) mmol/L Carbon Dioxide 28 (22-29) mmol/L Anion Gap 15 (12-20) BUN 36 H (9-16) mg/dL Creatinine 1.49 H (0.5-1.4) mg/dL Estim Creat Clear Calc 28.1 Estimated GFR 33 Random Glucose 182 H (60-115) mg/dL Calcium 9.4 D (8.4-10.2) mg/dL Magnesium 1.8 (1.6-2.6) mg/dL Total Bilirubin 0.5 (0.0-1.0) mg/dL AST 18 (5-31) U/L ALT 14 (0-31) U/L Alkaline Phosphatase 101 (39-117) U/L Troponin I High Sens 5.6 8.4 (<3.5-17.0) ng/L B-Natriuretic Peptide 65 (<100) pg/mL Total Protein 7.1 (6.5-8.0) g/dL Albumin 3.5 (3.5-5.0) g/dL Lipase 24 (8-78) U/L Influenza Type A (PCR) NEGATIVE (Negative) Influenza Type B (PCR) NEGATIVE (Negative) RSV RNA Qual (PCR) NEGATIVE (Negative) SARS-CoV-2 RNA (RT-PCR) NEGATIVE (Negative) Independent Interpretation I performed an independent interpretation of an: EKG ( See narrative above) Radiology Impression Discussion of test interpretation with radiology: I have reviewed the radiologist's reading. Radiologist Impression: 1 view chest x-ray Comparison: 11/11/2024 Findings: Lungs are clear without acute infiltrates. Stable chronic bibasilar scarring. No pneumothorax. Heart size enlarged. No acute bony abnormalities. Impression: No acute processes Independent Historian Clinical information obtained from an independent historian. History obtained from or confirmed by: EMS External Record Review External record reviewed: Outpatient record Chronic Conditions Patient?s care impacted by: Other ( see narrative above) Discharge Plan Discharge Clinical Impression: Atypical chest pain Patient Disposition: Home, Self-Care Additional Instructions: as discussed, your workup today was very reassuring, no signs of pneumonia on your x-ray, viral tests are negative, her breathing has been normal, your chest pain had resolved. Please follow-up closely with your primary care doctor. Return with any new or worsening symptoms or concerns Prescriptions: No Action budesonide 3 mg capsule,delayed,extend.release 6 mg PO QAM Qty: 180 1RF tiotropium bromide 18 mcg capsule, w/inhalation device 18 mcg inhalation DAILY 90 Days Qty: 90 3RF Rx Instructions: pt. needs the inhalation device used for Handihalor aspirin [Aspir-81] 81 mg Tablet,Delayed Release (Dr/Ec) 81 mg PO DAILY benzonatate 200 mg capsule 200 mg PO TID PRN (Reason: cough) Qty: 30 0RF prednisone 20 mg tablet 60 mg PO DAILY Qty: 12 0RF Rx Instructions: start tomorrow metoprolol succinate 50 mg tablet extended release 24 hr 50 mg PO DAILY hydrochlorothiazide 25 mg tablet 25 mg PO DAILY levothyroxine 50 mcg tablet 50 mcg PO DAILY oxycodone 5 mg tablet 5 mg PO QID PRN (Reason: Pain) tramadol 50 mg tablet 50 mg PO BID PRN (Reason: Pain) prochlorperazine maleate 10 mg tablet 10 mg PO BID PRN (Reason: Nausea And Vomiting) fluticasone propion-salmeterol [Wixela Inhub] 250-50 mcg/dose blister with device 1 inh inhalation BID acetaminophen [Tylenol Extra Strength] 500 mg tablet 1,000 mg PO ONCE PRN (Reason: pain) albuterol sulfate 90 mcg/actuation HFA aerosol inhaler 2 puff inhalation Q6H PRN (Reason: Shortness Of Breath Or Wheezing) albuterol sulfate 2.5 mg /3 mL (0.083 %) solution for nebulization 2.5 mg inhalation Q4H PRN (Reason: for wheezing) imipramine HCl 10 mg tablet 20 mg PO DAILY Qty: 60 6RF rabeprazole [AcipHex] 20 mg tablet,delayed release (DR/EC) 20 mg PO DAILY Qty: 90 3RF Referrals: John Thao MD [Primary Care Provider] - Print Language: [place]
[2024-11-18] MEDS: Aspirin 81 MG TAB.CHEW 243 MG PO (20:08)
[2024-11-18 20:21] LABS: MANUAL DIFF FLAG NO
--- OUTSIDE RECORDS SUMMARY | 2024-11-18 20:23 | XMS_ITS | Clinical Summary ---
Author Organization [facility] ity Address [id number] [place] [id number] Care Team Providers Care Armor Reconnaissance Vehicle Crewman Name Role Phone John Thao MD Primary Care Provider [phone] Social History Tobacco Use Types Packs/Day Years [...] age to complete this topic Care Teams Armor Reconnaissance Vehicle Crewman Relationship Specialty Start Date End Date John Thao MD [address] [place] [address] Dr Vernon MA PCP - General Boring Machine Operator Vertical 10/31/18
[2024-11-18 20:30] LABS: Basophils Absolute Auto 0.1 X10*3/uL (0.0-0.2); Basophils Percent Auto 0.4 % (0-2); Eosinophils Absolute Auto 0.3 X10*3/uL (0.0-0.4); Eosinophils Percent Auto 1.7 % (0-4); Hemoglobin 14.9 g/dl (12.0-16.0); Imm Gran Abs Auto 0.53 X10*3/uL (0.00-0.03); Imm Gran Pct Auto 3.7 % (0.0-0.4); Lymphocytes Absolute Auto 2.5 X10*3/uL (1.2-4.9); Lymphocytes Percent Auto 17.3 % (20-40); Mean Corpuscular HGB Conc 32.4 g/dl (31.0-35.0); Mean Corpuscular Hemoglobin 31.2 pg (27.0-33.0); Mean Corpuscular Volume 96.2 fL (80.0-98.0); Mean Platelet Volume 10.1 fL (9.4-12.3); Monocytes Absolute Auto 0.9 X10*3/uL (0.1-1.2); Monocytes Percent Auto 6.4 % (2-11); Neutrophils Absolute Auto 10.1 x10*3/uL (2.0-8.3); Neutrophils Percent Auto 70.5 % (45-73); Platelet Count 304 X10*3/uL (160-400); Red Blood Count 4.78 X10*6/uL (4.20-5.50); Red Cell Distribution Width 13.6 % (11.0-16.0); White Blood Count 14.4 X10*3/uL (4.8-10.8)
[2024-11-18 20:38] LABS: Prothrombin Time 11.4 SEC (10.9-12.4)
[2024-11-18] MEDS: methylPREDNISolone Sod Succ 125 MG/2 ML VIAL 80 MG IVPUSH (20:45)
[2024-11-18 20:46] LABS: Alanine Aminotransferase 14 U/L (0-31); Albumin Level 3.5 g/dL (3.5-5.0); Alkaline Phosphatase 101 U/L (39-117); Anion Gap 15 (12-20); Aspartate Amino Transferase 18 U/L (5-31); Bilirubin Total 0.5 mg/dL (0.0-1.0); Blood Urea Nitrogen 36 mg/dL (9-16); Calcium 9.4 mg/dL (8.4-10.2); Carbon Dioxide 28 mmol/L (22-29); Chloride 101 mmol/L (96-108); Creatinine Clr Calc Pharmacy 28.1; Estimated Glomerular Filt Rate 33; Glucose Random 182 mg/dL (60-115); Lipase 24 U/L (8-78); Magnesium 1.8 mg/dL (1.6-2.6); Potassium 3.5 mmol/L (3.3-5.1); Sodium 140 mmol/L (135-145); Total Protein 7.1 g/dL (6.5-8.0)
[2024-11-18 20:46] LABS: Troponin-I High Sensitivity 5.6 ng/L (<3.5-17.0)
[2024-11-18 20:51] LABS: B Type Natriuretic Peptide 65 pg/mL (<100)
[2024-11-18 21:01] LABS: Influenza A PCR NEGATIVE (Negative); Influenza B PCR NEGATIVE (Negative); Resp Syncy Virus RNA Qual PCR NEGATIVE (Negative); SARS COV2 PCR INHOUSE NEGATIVE (Negative)
[2024-11-18] MEDS: Albuterol/Iprat 2.5/0.5MG 3 ML AMPUL.NEB INHALE (22:04)
[2024-11-18 22:06] VITALS: PULSE 64; RESP 18; O2SAT 97
[2024-11-18 23:02] VITALS: BP 156/100; PULSE 74; RESP 18; O2SAT 95
[2024-11-18 23:28] LABS: Troponin-I High Sensitivity 8.4 ng/L (<3.5-17.0)
== END 2024-11-19 06:23 | disposition home or self-care (01) ==
PROVIDERS: Nurse Practitioner Family; Emergency Provider Emergency Medicine Emergency Medical Services; PCP Internal Medicine
DX: R07.89 Other chest pain (principal); R06.02 Shortness of breath; J44.9 Chronic obstructive pulmonary disease, unspecified; I10 Essential (primary) hypertension
CPT/HCPCS: 0241U; 36415; 71045; 80053; 83690; 83735; 83880; 84484; 85025; 85610; 93005; 94640; 96374; 99284; J2919

== ENCOUNTER → 2024-11-18 19:27 | Outpatient (BNV) | payer MEDICARE, SELFPAY | PROVIDERS: Emergency Provider Emergency Medicine Emergency Medical Services; PCP Internal Medicine; Visit Provider Internal Medicine Cardiovascular Disease | DX: R07.9 Chest pain, unspecified (principal); R94.31 Abnormal electrocardiogram [ECG] [EKG] | CPT/HCPCS: 93010 ==

== ENCOUNTER → 2024-11-18 20:01 | Outpatient (BNV) | payer MEDICARE, SELFPAY | PROVIDERS: Emergency Provider Emergency Medicine Emergency Medical Services; PCP Internal Medicine; Visit Provider Radiology Diagnostic Radiology | DX: R07.9 Chest pain, unspecified (principal); R06.02 Shortness of breath | CPT/HCPCS: 71045 ==

== ENCOUNTER 2024-11-28 09:18 | Outpatient (AMB) | payer MEDICARE, SELFPAY ==
[2024-11-28 09:25] VITALS: BP 130/70; PULSE 74; O2SAT 97; BMI 39.8
--- NOTE | 2024-11-28 09:25 | MHC.OFFVIS ---
Vital Signs 11/28/24 09:25 Height 4 ft 11 in Weight 197 lb 5.019 oz BMI 39.8 BP 130/70 Blood Pressure Location Lt brachial Position Sitting Pulse 74 Pulse Source Pulse Oximeter Pulse Oximetry (%) 97 Oxygen Delivery Method Room Air Intake Visit Reasons: COPD Intake Note: pt is here for follow up of ER and states her breathing is not back to baseline, still weak, copd exh. 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 codeine [CODEINE] Allergy (Intermediate, Verified 11/28/24 11:56) Rash fish derived [FISH] Allergy (Intermediate, Verified 11/28/24 11:56) HIVES Iodinated Contrast Media [IV Dye, Iodine Containing] Allergy (Intermediate, Verified 11/28/24 11:56) HIVES nitrofurantoin [Nitrofurantoin] Allergy (Intermediate, Verified 11/28/24 11:56) HIVES Sulfa (Sulfonamide Antibiotics) [SULFA (SULFONAMIDE ANTIBIOTICS)] Allergy (Intermediate, Verified 11/28/24 11:56) RASH valsartan [From DIOVAN] Allergy (Intermediate, Verified 11/28/24 11:56) HIVES vancomycin [VANCOMYCIN] Allergy (Intermediate, Verified 11/28/24 11:56) RASH Penicillins [PENICILLINS] Allergy (Mild, Verified 11/28/24 11:56) RASH adhesive [ADHESIVE] Allergy (Unknown, Verified 11/28/24 11:56) UNKNOWN hydrocodone [Vicodin] Allergy (Unknown, Verified 11/28/24 11:56) Unknown ibuprofen [IBUPROFEN] Adverse Reaction (Unknown, Verified 11/28/24 11:56) UNKNOWN Medication List - Last Reconciled 11/28/24 by Caro Dobson MD acetaminophen (Tylenol Extra Strength) 1,000 mg PO ONCE PRN albuterol sulfate 90 mcg/actuation 2 puffs inhalation Q6H PRN albuterol sulfate 2.5 mg inhalation Q4H PRN aspirin 81 mg PO DAILY benzonatate 200 mg PO TID PRN budesonide DR-ER 6 mg (2 x 3 mg) PO QAM fluticasone propion-salmeterol 250-50 mcg/dose (Wixela Inhub) 1 inh inhalation BID hydrochlorothiazide 25 mg PO DAILY imipramine HCl 20 mg (2 x 10 mg) PO DAILY levothyroxine 50 mcg PO DAILY metoprolol succinate ER 50 mg PO DAILY oxycodone 5 mg PO QID PRN prochlorperazine maleate 10 mg PO BID PRN rabeprazole (AcipHex) 20 mg PO DAILY tiotropium bromide 18 mcg inhalation DAILY 90 days tramadol 50 mg PO BID PRN Do you need a note to return to daycare/school/sports/work: No HPI HPI COPD: Details: TELLO IS HERE FOR FOLLOW-UP AFTER A SHORT PERIOD. CONTINUES TO HAVE INTERMITTENT CHEST CONGESTION AND SOME WHEEZING. SHE HAS HAD NO ACUTE RESPIRATORY INFECTION . AFTER HER LAST VISIT 6 WEEKS AGO SHE ENDED UP IN THE EMERGENCY ROOM WITH NONSPECIFIC CHEST PAIN AND IT WAS RELIEVED JUST WITH 1 SUBLINGUAL NITROGLYCERIN TABLET. SHE REMAINS ANXIOUS, AND AGAIN STATES THAT SHE HAS HARD TIME IN FALLING ASLEEP. SO SHE WAKES UP TIRED. AT PRESENT SHE DOES NOT HAVE ANY ACUTE INFECTION. 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 difficile colitis Breast cancer Surgical History History of esophagogastroduodenoscopy (EGD) H/O colonoscopy H/O lymph node biopsy Hx of cataract surgery History of tonsillectomy and adenoidectomy H/O hysterectomy for benign disease History of total bilateral knee replacement H/O kyphoplasty Family History Father No problems noted. Mother Breast cancer Sister Breast cancer Social History Household Members: Children Housing: House Are you a primary care center manager to a significant other at home: No Do you presently have visiting nurse or other home services: No Alcohol intake: never Patient Tobacco Use Status: Former Tobacco user Substance Use Type: Marijuana service: No Current occupational status: retired Review of Systems Const All systems reviewed & are unremarkable except as noted in HPI and below Eyes Reports no additional complaints ENT Reports no additional complaints Card Denies chest pain, Denies irregular heart rhythm and Denies leg edema Resp Reports as per HPI GI Reports no additional complaints Reports no additional complaints Musc Reports abnormal gait (Needs the walker to ambulate) and Reports back pain Skin/Breast Reports system reviewed and no additional complaints, except as documented Neuro Reports abnormal gait (Needs the walker to ambulate) Psych Reports no additional complaints Endo Reports no additional complaints Physical Exam Vital Signs: Last Vital Signs Pulse 74 11/28/24 09:25 BP 130/70 11/28/24 09:25 Pulse Ox 97 11/28/24 09:25 Oxygen Delivery Method Room Air 11/28/24 09:25 BMI result Body Mass Index 39.8 Const Other: Grossly overweight General: comfortable, no acute distress, alert and awake Orientation/consciousness: patient oriented x3 HEENT Head: Yes normal to inspection General nose exam: No nasal polyps present and No nasal discharge present Face and sinus: Yes sinuses nontender Mouth: oropharynx normal Throat: Yes posterior oropharynx normal Eyes General: appearance normal, both eyes and all related structures Neck Neck: Yes normal visual inspection, Yes no lymphadenopathy (And no submandibular adenitis), Yes trachea midline and Yes no JVD Thyroid: Thyroid normal Chest Chest palpation & inspection: normal inspection of the chest, normal palpation of entire chest wall and no tenderness Resp Other: Percussion note is resonant, breath sounds are very distant with prolonged expiratory phase. No active wheezes or crepitations are heard today. Cardio Palpation: normal PMI Rate: regular rate Rhythm: regular rhythm Heart sounds: no gallops and no murmurs GI Palpation (GI): Soft to palpation, Tenderness to palpation present (GI), No hepatosplenomegaly present, Palpable mass present and Other GI palpation findings present (Abdomen is obese and somewhat protuberant) Auscultation: normal bowel sounds Back/Spine/Pelvis Thoracic/Lumbar Spine: thoracic and lumbar spine normal to inspection and thoraco-lumbar ROM limited Skin General skin exam: no rashes or lesions noted Neuro General: patient oriented x3, No gait normal (Gait unstable ,uses walker) and no focal motor deficits Cranial nerves: Yes CN's II-XII intact bilaterally Extrem General: Yes normal to inspection, Yes no clubbing, cyanosis or edema and Yes no calf tenderness Psych Appearance: grossly normal and well kempt Speech and movement: Normal speech and movement present Assessment & Plan Assessment & Plan (1) Asthma-COPD overlap syndrome: Comment: PATIENT DOES HAVE MODERATELY ADVANCED ASTHMA COPD SYNDROME, IT HAS BEEN STABLE AND CONTROLLED WITH HER CURRENT REGIMEN. SHE CONTINUES WITH THE FEELING OF MORE SHORT OF BREATH AND CHEST CONGESTION . THIS MAY BE DUE TO CONTINUED ANXIETY/PANIC SYNDROME, AND ALSO INCREASED LOAD OF ALLERGIES Code(s): J44.9 - Chronic obstructive pulmonary disease, unspecified Category: Medical Plan: REASSURED. SIMPLIFIED HER REGIMEN FOLLOWS. JUST USE BUDESONIDE 0.5 MG SOLUTION IN THE NEBULIZER B.I.D.. AND USE IPRATROPIUM-ALBUTEROL 3 MALE SOLUTION IN THE NEBULIZER T.I.D. REGULARLY. USE ALBUTEROL HFA 2 PUFFS Q 6 HOURS P.R.N. WHEN OUTDOORS. STOP USING WIXELA AND SPIRIVA. (2) Acute anxiety: Comment: PATIENT LIVES ALONE, HER LOCOMOTION IS SOMEWHAT IMPAIRED. SHE GETS VERY PANICKY WHEN SHE HAS INCREASED SHORTNESS OF BREATH. THAT IS WHAT SEEMS TO BE GOING ON NOW. SHE IS NOT ABLE TO FALL ASLEEP AT NIGHT, AND IS NOT GETTING GOOD AMOUNT OF SLEEP. WE HAVE TRIED TO NURSING PROJECT COORDINATOR HER ADVISE DOING DEEP BREATHING EXERCISES BEFORE SLEEP, BUT IT HAS NOT WORK Code(s): F41.9 - Anxiety disorder, unspecified Category: Medical Plan: A MILD DOSE OF LORAZEPAM TO TAKE AT BEDTIME ( 0.5 MG) IS PRESCRIBED, AND SHE IS ADVISED TO TAKE IT CAUTIOUSLY. SHE WILL BE SEEN WITHIN 1 MONTH TO, MONITOR THE FACT OF THIS MEDICINE. Medications: New lorazepam (Ativan) 0.5 mg PO BEDTIME 30 days PRN 30 tabs 2RF anxiety/INSOMNIA ipratropium-albuterol 0.5 mg-3 mg(2.5 mg base)/3 mL 3 mL inhalation Q6H 30 days PRN 360 mL 3RF wheezing/COPD Coding Level of Care Code Est Pt Level 3 (79705) Diagnoses Asthma-COPD overlap syndrome J44.9 Acute anxiety F41.9
--- OUTSIDE RECORDS SUMMARY | 2024-11-28 10:51 | XMS_ITS | Clinical Summary ---
Author Organization [facility] ity Address [id number] [place] [id number] Care Team Providers Care Baseball Glove Shaper Name Role Phone John Thao MD Primary Care Provider [phone] Social History Tobacco Use Types Packs/Day Years [...] age to complete this topic Care Teams Baseball Glove Shaper Relationship Specialty Start Date End Date John Thao MD [address] [place] [address] Dr Vernon MA PCP - General Commercial Administrator 10/31/18
== END 2024-11-28 09:44 | disposition home or self-care (01) ==
LOC: HO.HPS 09:19
PROVIDERS: PCP Internal Medicine; Visit Provider Internal Medicine
DX: J44.9 Chronic obstructive pulmonary disease, unspecified (principal); F41.9 Anxiety disorder, unspecified
CPT/HCPCS: 99213

== ENCOUNTER → 2024-11-28 09:18 | Outpatient (BNVA) | payer MEDICARE, SELFPAY | PROVIDERS: PCP Internal Medicine; Visit Provider Internal Medicine | DX: J44.9 Chronic obstructive pulmonary disease, unspecified (principal); F41.9 Anxiety disorder, unspecified | CPT/HCPCS: 99212 ==

== ENCOUNTER 2024-12-11 12:03 | Outpatient (REF) | payer MEDICARE, SELFPAY ==
--- NOTE | ~2024-12-11 | MM_ITS ---
EXAMINATION: MM DIAGNOSTIC DIGITAL BREAST TOMOSYNTHESIS, BILATERAL CLINICAL INFORMATION: 1 year follow-up for grouped calcifications in the upper outer left breast. History of left breast cancer status post lumpectomy. COMPARISON: Mammography: Comparison is made with relevant prior exams. TECHNIQUE: Digital breast mammography with tomosynthesis is performed in both the craniocaudal and mediolateral oblique views along with computer-aided detection (CAD). FINDINGS: There are scattered areas of fibroglandular density (ACR BI-RADS breast composition Category b). There are a few punctate calcifications in the upper outer quadrant with surrounding dystrophic calcifications which are unchanged on magnification views dating back for one year. No suspicious masses or other abnormal findings. Post lumpectomy changes are stable. Results are provided to the patient at time of visit by the technologist. MM/MM tomosynthesis diagnostic BI IMPRESSION: Status post left lumpectomy changes are stable. Grouped punctate calcifications in the upper outer quadrant are not significantly changed from magnification views dating back for one year. Recommend one-year follow-up with magnification views when the patient is due for bilateral mammography to demonstrate 2 years of stability. ASSESSMENT: BI-RADS BI-RADS 3 - Probably benign finding(s) - 12 month follow-up suggested RECOMMENDATION: 12 month diagnostic follow up This patient's information was entered into a reminder system with a target due date for their next mammogram. Electronically signed by: Greer Ricketts DO 12/11/2024 01:09 PM EDT Workstation: [id number]
--- OUTSIDE RECORDS SUMMARY | 2024-12-11 14:28 | XMS_ITS | Clinical Summary ---
Author Organization [facility] ity Address [id number] [place] [id number] Care Team Providers Care Cpr Ambulance Driver Name Role Phone John Thao MD Primary Care Provider [phone] Social History Tobacco Use Types Packs/Day Years [...] age to complete this topic Care Teams Cpr Ambulance Driver Relationship Specialty Start Date End Date John Thao MD [address] [place] [address] Dr Vernon [place] PCP - General Hat And Cap Drying Room Attendant 10/31/18
--- OUTSIDE RECORDS SUMMARY | 2024-12-11 14:28 | XMS_ITS | Clinical Summary ---
Author Organization [facility] Address [address] [place] [phone] Phone Care Team Providers Care Product Applications Engineer Name Role Phone John Thao MD Primary Care Provider [phone] Allergies Active Allergy Reactions Criticality Noted Date [...] patient's age to complete this topic Insurance [facility] MEDICARE MEDICAID [place] [facility] [place] Care Teams Product Applications Engineer Relationship Specialty Start Date End Date John Thao MD [id number] [place] PCP - General 09/28/20
== END 2024-12-11 12:04 | disposition home or self-care (01) ==
LOC: HO.MAMMO 12:03
PROVIDERS: Visit Provider Internal Medicine
DX: R92.1 Mammographic calcification found on diagnostic imaging of breast (principal)
CPT/HCPCS: 77062; 77066

== ENCOUNTER → 2024-12-11 13:00 | Outpatient (BNV) | payer MEDICARE, SELFPAY | PROVIDERS: Visit Provider Internal Medicine | DX: R92.1 Mammographic calcification found on diagnostic imaging of breast (principal) | CPT/HCPCS: 77066; G0279 ==

== ENCOUNTER 2024-12-25 10:07 | Outpatient (AMB) | payer MEDICARE, SELFPAY ==
[2024-12-25 10:24] VITALS: BP 128/74; PULSE 83; TEMP 36.6; O2SAT 99; BMI 39.6
--- NOTE | 2024-12-25 10:24 | A.OFFPC_ITS ---
Vital Signs 12/25/24 10:24 Height 4 ft 11 in Weight 196 lb BMI 39.6 BP 128/74 Blood Pressure Location Lt brachial Position Sitting Pulse 83 Pulse Source Pulse Oximeter Temp 97.8 F Temp Source Axillary Pulse Oximetry (%) 99 Oxygen Delivery Method Room Air Intake Visit Reasons: Routine Automation Engineering Manager Required: No Accompanied by: Self / Same As Patient Allergies gabapentin Allergy (Severe, Verified 12/25/24 10:25) severe urinary incont. codeine [CODEINE] Allergy (Intermediate, Verified 12/25/24 10:25) Rash fish derived [FISH] Allergy (Intermediate, Verified 12/25/24 10:25) HIVES Iodinated Contrast Media [IV Dye, Iodine Containing] Allergy (Intermediate, Verified 12/25/24 10:25) HIVES nitrofurantoin [Nitrofurantoin] Allergy (Intermediate, Verified 12/25/24 10:25) HIVES Sulfa (Sulfonamide Antibiotics) [SULFA (SULFONAMIDE ANTIBIOTICS)] Allergy (Intermediate, Verified 12/25/24 10:25) RASH valsartan [From DIOVAN] Allergy (Intermediate, Verified 12/25/24 10:25) HIVES vancomycin [VANCOMYCIN] Allergy (Intermediate, Verified 12/25/24 10:25) RASH Penicillins [PENICILLINS] Allergy (Mild, Verified 12/25/24 10:25) RASH adhesive [ADHESIVE] Allergy (Unknown, Verified 12/25/24 10:25) UNKNOWN hydrocodone [Vicodin] Allergy (Unknown, Verified 12/25/24 10:25) Unknown ibuprofen [IBUPROFEN] Adverse Reaction (Unknown, Verified 12/25/24 10:25) UNKNOWN Tobacco use date assessed: 12/25/24 Fall risk assessment: 1 Fall in past year Last assessed Fall Risk: 12/25/24 Dental Screening Dental Screen Date: 12/25/24 Did you have a dental visit in the last 12 months?: No Did you have a dental problem in the last 6 months where you did not have access to dental care?: No [facility] History Acute anxiety Neuropathy of left ulnar nerve at wrist Compression fracture of C1 vertebra 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 difficile colitis Breast cancer Surgical History History of esophagogastroduodenoscopy (EGD) H/O colonoscopy H/O lymph node biopsy Hx of cataract surgery History of tonsillectomy and adenoidectomy H/O hysterectomy for benign disease History of total bilateral knee replacement H/O kyphoplasty Family History Father No problems noted. Mother Breast cancer Sister Breast cancer Social History Household Members: Children Housing: House Are you a primary primary health care nurse to a significant other at home: No Do you presently have visiting nurse or other home services: No Alcohol intake: never Patient Tobacco Use Status: Former Tobacco user Substance Use Type: Marijuana service: No Current occupational status: retired Cognitive needs: No Hearing needs: No Vision needs: Yes (rx glasses) Questionnaire PHQ-9 Over the last 2 weeks, how often have you been bothered by any of the following problems? 1. Little interest or pleasure in doing things: several days 2. Feeling down, depressed, or hopeless: not at all 3. Trouble falling or staying asleep, or sleeping too much: not at all 4. Feeling tired or having little energy: not at all 5. Poor appetite or overeating: not at all 6. Feeling bad about yourself - or that you are a failure or have let yourself or your family down: not at all 7. Trouble concentrating on things, such as reading the newspaper or watching television: not at all 8. Moving or speaking so slowly that other people could have noticed. Or the opposite - being so fidgety or restless that you have been moving around a lot more than usual: not at all 9. Thoughts that you would be better off or of hurting yourself in some way: not at all Total score: 1 Source: Developed by Drs. Julian Martinez, Daya Jose, Jossue Izaguirre and colleagues, with an educational venkatesh from [employer]. Thrive Questionnaire Date Thrive assessed: 12/25/24 I am a: Patient Within the past 12 months, did the food you bought not last and you didn't have the money to get more?: Never true Within the past 12 months, did you worry whether your food would run out before you got money to buy more?: Never true Do you have trouble paying for medicines?: No Do you have trouble getting transportation to medical appointments?: No Do you have trouble paying your heating and electricity bill?: No Do you have trouble taking care of your child, family member or friend?: No Do you have trouble with day-to-day activities such as bathing, preparing meals, shopping, managing finances, etc.?: No Are you currently unemployed and looking for a job?: No Are you interested in more education?: No THRIVE Score: 0 AUDIT C Alcohol Use Questionnaire (AUDIT-C) 1. How often do you have a drink containing alcohol?: Never 3. How often do you have six or more drinks on one occasion?: Never Total Score: 0 ALLI-7 AMB Questionnaire ALLI-7 Date ALLI - 7 assessed: 12/25/24 Feeling nervous, anxious, or on edge: 0 = Not at all Not being able to stop or control worryin = Not at all Worrying too much about different things: 0 = Not at all Trouble relaxin = Not at all Being so restless that it is hard to sit still: 0 = Not at all Becoming easily annoyed or irritable: 0 = Not at all Feeling afraid as if something awful might happen: 0 = Not at all Total ALLI-7 score (0-4 normal; 5-9 mild; 10-14 moderate; 15-21 severe): 0 Source: Developed by Drs. Julian Martinez, Daya Jose, Jossue Izaguirre and colleagues, with an educational venkatesh from [employer]. Physical exam (Primary Care) Vital Signs: Last Vital Signs Temp 97.8 F 12/25/24 10:24 Pulse 83 12/25/24 10:24 BP 128/74 12/25/24 10:24 Pulse Ox 99 12/25/24 10:24 Oxygen Delivery Method Room Air 12/25/24 10:24 BMI result Body Mass Index 39.6 Tobacco/Smoking Status: Tobacco use Status Tobacco use date assessed 04/09/25 04/09/25 10:27 Patient Tobacco Use Status Former Tobacco user 12/25/24 10:27 PHQ-9: PHQ-9 Score PHQ-9: Total score 1 12/25/24 10:57 Thrive Assessment: Date of Thrive Assessment Date Thrive assessed 12/25/24 12/25/24 10:27 Coding Level of Care Code New Pt Level 4 (65758) Complex EM visit Add On G2211 Diagnoses 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 Patient has chronic pain and symptoms are reasonable controlled on the current dosage of opiates. In addtion to these she gets benzodiazepines from her lung doctor. Will discuss the case with pain management. (2) Asthma-COPD overlap syndrome: Comment: PATIENT DOES HAVE MODERATELY ADVANCED ASTHMA COPD SYNDROME, IT HAS BEEN STABLE AND CONTROLLED WITH HER CURRENT REGIMEN. SHE CONTINUES WITH THE FEELING OF MORE SHORT OF BREATH AND CHEST CONGESTION . THIS MAY BE DUE TO CONTINUED ANXIETY/PANIC SYNDROME, AND ALSO INCREASED LOAD OF ALLERGIES Code(s): J44.9 - Chronic obstructive pulmonary disease, unspecified Category: Medical Plan: Continue current management. Plan History of Present Illness The patient is an 84-year-old female presenting for medication management related to chronic pain and COPD. She has endured debilitating back pain for over five years, which significantly restricts her movement. Despite evaluations by other medical sociologist, such as the [facility] at [facility], no surgical options could resolve her condition, cementing her dependency on pharmacological solutions. She has been consistently using oxycodone and tramadol daily for over five years to manage her back pain and is reluctant to alter the current regimen due to its effectiveness. A lapse in tramadol use led to exacerbated pain in her hip and back, prompting her to increase her consumption of oxycodone. Despite this, she encounters challenges in maintaining a consistent medication supply, impacting her pain levels. Her history of COPD has seen varying degrees of management success, with exacerbations prompting hospital admissions. While on prednisone intermittently in the past, she has ongoing cough issues attributed to COPD. She is concurrently under the care of Dr. Dobson, who has prescribed alprazolam for sleep disturbances. The patient understands the potential dangers of her medication regimen but relies on its efficacy. Social History - Lives with her son. - Transported to visits by van. - Stopped smoking 15-20 years ago. Review of Systems - Respiratory: Reports chronic cough, worsening in absence of medication. - Musculoskeletal: Reports chronic back pain with radiation to the hip. - Neurological: Reports no current symptoms. Physical Exam General: Cooperative and healthy appearing Nutritional Appearance: Well nourished Orientation/consciousness: Patient oriented x3 Limitations: No limitations Head: Normal to inspection General: Appearance normal, both eyes and all related structures Neck: Normal visual inspection Chest: Normal palpation of entire chest wall Respiratory: COPD ormal respiratory effort Neurology: Patient oriented x3 Results Plan The patient?s existing long-standing medication regimen for chronic pain will be continued to ensure effective management, given recent exacerbations. A prednisone course is prescribed as part of her COPD management strategy to reduce inflammation and cough symptoms. Ongoing monitoring of her medication use is emphasized, with a follow-up scheduled to reassess her situation and medication effectiveness. Patient was informed and verbally consented to the use of an ambient scribe for clinic note documentation during this visit. Discussion Notes The patient and I discussed the continuation of her existing pain management regimen due to its current efficacy. We reviewed the risks associated with her long-term use of opioids and the interconnections with her COPD management. I informed her of the plan to resume prednisone to address worsening cough symptoms and potentially facilitate better respiratory health. Concerns regarding payment continuity, potential dependency issues, and managing exacerbations were explicitly discussed, aligning with her ongoing care plan. I advised timing, refills, and monitoring her condition with future assessments. Patient Instructions - Continue taking your current medications as discussed. - Start the course of prednisone as instructed to manage cough symptoms. - Notice any exacerbation in symptoms or side-effects and contact us if they occur. - Follow up in three months for detailed medication and health review. - Keep maintaining appointments with healthcare providers involved in your care management. Medications: New oxycodone 5 mg PO QID PRN 120 tabs 0RF Pain Changed From tramadol Take 1 tab by mouth twice a day 50 mg PO BEDTIME To tramadol Take 1 tab by mouth twice a day 50 mg PO BID 60 tabs 0RF
--- OUTSIDE RECORDS SUMMARY | 2024-12-25 11:23 | XMS_ITS | Clinical Summary ---
Author Organization [facility] Address [address] [place] [phone] Phone Care Team Providers Care Top Screw Name Role Phone John Thao MD Primary Care Provider [phone] Allergies Active Allergy Reactions Criticality Noted Date [...] PPSV23 or PCV20) 11/02/2017 09/07/2017 Influenza Vaccine (Season Ended) 2025 06/15/20 20 Hepatitis B Vaccine Aged Out No longe r eligible based on patient's age to complete this topic Insurance [facility] MEDICARE [place]ICAID [place] MEDICARE [facility] [place] Care Teams Top Screw Relationship Specialty Start Date End Date John Thao MD [address] [place], [place] PCP - General 09/28/20
--- OUTSIDE RECORDS SUMMARY | 2024-12-25 11:23 | XMS_ITS | Clinical Summary ---
Author Organization [facility] ity Address [address] [place] [phone] Care Team Providers Care Middleware Solutions Architect Name Role Phone John Thao MD Primary Care Provider Social History Tobacco Use Types Packs/Day Years [...] Vaccines (1 of 2) 1990 RSV Immunization Adult Patie nts (1 - 1-dose 75+ series) 2015 COVID-19 [...] age to complete this topic Meningococcal B Vaccine Aged Out No l onger eligible based on patient's age to complete this topic RSV Immunization Patients Un earl 20 months Aged Out No longer eligible b ased on patient's age to complete this topic Varicella Vaccines Aged Out No longer eligible based on patient's age to complete this topic Care Teams Middleware Solutions Architect Relationship Specialty Start Date End Date John Thao MD [address] [place] [address] Dr Vernon [place] PCP - General Gem Setter 10/31/18
== END 2024-12-25 11:14 | disposition home or self-care (01) ==
LOC: HO.HMCHD 10:08
PROVIDERS: PCP Internal Medicine; Visit Provider Internal Medicine
DX: M47.816 Spondylosis without myelopathy or radiculopathy, lumbar region (principal); J44.9 Chronic obstructive pulmonary disease, unspecified

== ENCOUNTER → 2024-12-25 10:07 | Outpatient (BNVA) | payer MEDICARE, SELFPAY | PROVIDERS: PCP Internal Medicine; Visit Provider Internal Medicine | DX: M47.816 Spondylosis without myelopathy or radiculopathy, lumbar region (principal); J44.9 Chronic obstructive pulmonary disease, unspecified; G89.29 Other chronic pain | CPT/HCPCS: 96127; 99202 ==

== ENCOUNTER 2025-01-02 08:37 | Outpatient (AMB) | payer MEDICARE, SELFPAY ==
--- OUTSIDE RECORDS SUMMARY | 2025-01-02 09:09 | XMS_ITS | Clinical Summary ---
Author Organization [facility] Address [address] [address] Phone Care Team Providers Care Software Configuration Engineer Name Role Phone John Thao MD Primary Care Provider [phone] Allergies Active Allergy Reactions Criticality Noted Date [...] kidney disease stage 1 10/28/2020 10/29/2020 Immunizations Immunization Administration Dates Next Due Influenza, Recombinant, Quadrivalent, [...] Due Date Last Done Comments Pneumococcal Vaccine: 50+ Ye ars (2 of 2 - PPSV23) 11/02/2017 09/07/2017 Influenza Vaccine (Season Ended) 2025 06/15/20 20 Pneumococcal Vaccine: Peds ( 0 to 5 Years) and At-Risk Patients (6 to 49 Years) Discontinued 09/07/2017 Hepatitis B Vaccine Aged Out No longe r eligible based on patient's age to complete this topic Insurance [facility] Medicare Medicaid [place] Medicare [facility] Medicaid [place] Care Teams Software Configuration Engineer Relationship Specialty Start Date End Date John Thao MD [address] [place], [place] PCP - General 09/28/20
--- OUTSIDE RECORDS SUMMARY | 2025-01-02 09:09 | XMS_ITS | Clinical Summary ---
Author Organization [facility] ity Address [address] [place] [phone] Care Team Providers Care Ocular Care Technician Name Role Phone John Thao MD Primary Care Provider [phone] Social History Tobacco Use Types Packs/Day Years [...] Vaccine (2023-2 5 season) 2024 Influenza Vaccine (Season Ended) 2025 HIB Vaccines Aged Out No longer eligi [...] age to complete this topic Care Teams Ocular Care Technician Relationship Specialty Start Date End Date John Thao MD [address] [place] [address] Dr Vernon [place] PCP - General [place] Wheeler 10/31/18
[2025-01-02 09:10] VITALS: BP 148/80; PULSE 72; O2SAT 95; BMI 40.2
--- NOTE | 2025-01-02 09:10 | MHC.OFFVIS ---
Vital Signs 01/02/25 09:10 Height 4 ft 11 in Weight 199 lb BMI 40.2 BP 148/80 H Blood Pressure Location Lt brachial Position Sitting Pulse 72 Pulse Source Doppler Pulse Oximetry (%) 95 Oxygen Delivery Method Room Air Intake Visit Reasons: COPD Intake Note: Patient is here for a follow up on COPD, no complaints Allergies gabapentin Allergy (Severe, Verified 01/02/25 09:23) severe urinary incont. codeine [CODEINE] Allergy (Intermediate, Verified 01/02/25 09:23) Rash fish derived [FISH] Allergy (Intermediate, Verified 01/02/25 09:23) HIVES Iodinated Contrast Media [IV Dye, Iodine Containing] Allergy (Intermediate, Verified 01/02/25 09:23) HIVES nitrofurantoin [Nitrofurantoin] Allergy (Intermediate, Verified 01/02/25 09:23) HIVES Sulfa (Sulfonamide Antibiotics) [SULFA (SULFONAMIDE ANTIBIOTICS)] Allergy (Intermediate, Verified 01/02/25 09:23) RASH valsartan [From DIOVAN] Allergy (Intermediate, Verified 01/02/25 09:23) HIVES vancomycin [VANCOMYCIN] Allergy (Intermediate, Verified 01/02/25 09:23) RASH Penicillins [PENICILLINS] Allergy (Mild, Verified 01/02/25 09:23) RASH adhesive [ADHESIVE] Allergy (Unknown, Verified 01/02/25 09:23) UNKNOWN hydrocodone [Vicodin] Allergy (Unknown, Verified 01/02/25 09:23) Unknown ibuprofen [IBUPROFEN] Adverse Reaction (Unknown, Verified 01/02/25 09:23) UNKNOWN Medication List - Last Reconciled 01/02/25 by Caro Dobson MD albuterol sulfate 90 mcg/actuation 2 puffs inhalation Q6H PRN albuterol sulfate 2.5 mg inhalation Q4H PRN benzonatate 200 mg PO TID PRN budesonide DR-ER 6 mg (2 x 3 mg) PO QAM hydrochlorothiazide 25 mg PO DAILY ipratropium-albuterol 0.5 mg-3 mg(2.5 mg base)/3 mL 3 mL inhalation Q6H PRN 30 days levothyroxine 50 mcg PO DAILY lorazepam (Ativan) 0.5 mg PO BEDTIME PRN 30 days metoprolol succinate ER 50 mg PO DAILY ondansetron HCl 4 mg PO DAILY PRN oxycodone 5 mg PO QID PRN rabeprazole (AcipHex) 20 mg PO DAILY tramadol 50 mg PO BID Do you need a note to return to daycare/school/sports/work: No HPI HPI COPD: Details: This 84 years old very pleasant female is here for a short-term follow-up, as on her last visit I had prescribed lorazepam 0.5 mg to take at bedtime. As far as COPD is concerned it has remained very well controlled and stable with the current medical regimen. Her medical regimen has been made simple by just using the DuoNeb updrafts and budesonide, and no inhalers. Her main issue was that she was unable to sleep and was becoming anxious and panicky . Lorazepam 0.5 mg at bedtime has helped her a lot. She claims that she never had such a good sleep before. She wakes up without any mental fog, and also during the daytime she remains alert. 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 difficile colitis Breast cancer Surgical History History of esophagogastroduodenoscopy (EGD) H/O colonoscopy H/O lymph node biopsy Hx of cataract surgery History of tonsillectomy and adenoidectomy H/O hysterectomy for benign disease History of total bilateral knee replacement H/O kyphoplasty Family History Father No problems noted. Mother Breast cancer Sister Breast cancer Social History Household Members: Children Housing: House Are you a primary critical care physician to a significant other at home: No Do you presently have visiting nurse or other home services: No Alcohol intake: never Patient Tobacco Use Status: Former Tobacco user Substance Use Type: Marijuana service: No Current occupational status: retired Cognitive needs: No Hearing needs: No Vision needs: Yes (rx glasses) Review of Systems Const All systems reviewed & are unremarkable except as noted in HPI and below Eyes Reports no additional complaints ENT Reports no additional complaints Card Denies chest pain, Denies irregular heart rhythm and Denies leg edema Resp Reports as per HPI GI Reports no additional complaints Reports no additional complaints Musc Reports abnormal gait (Needs the walker to ambulate) and Reports back pain Skin/Breast Reports system reviewed and no additional complaints, except as documented Neuro Reports abnormal gait (Needs the walker to ambulate) Psych Reports no additional complaints Endo Reports no additional complaints Physical Exam Vital Signs: BMI result Body Mass Index 40.2 Const Other: Grossly overweight General: comfortable, no acute distress, alert and awake Orientation/consciousness: patient oriented x3 HEENT Head: Yes normal to inspection General nose exam: No nasal polyps present and No nasal discharge present Face and sinus: Yes sinuses nontender Mouth: oropharynx normal Throat: Yes posterior oropharynx normal Eyes General: appearance normal, both eyes and all related structures Neck Neck: Yes normal visual inspection, Yes no lymphadenopathy (And no submandibular adenitis), Yes trachea midline and Yes no JVD Thyroid: Thyroid normal Chest Chest palpation & inspection: normal inspection of the chest, normal palpation of entire chest wall and no tenderness Resp Other: Percussion note is resonant, breath sounds are very distant with prolonged expiratory phase. No active wheezes or crepitations are heard today. Cardio Palpation: normal PMI Rate: regular rate Rhythm: regular rhythm Heart sounds: no gallops and no murmurs GI Palpation (GI): Soft to palpation, Tenderness to palpation present (GI), No hepatosplenomegaly present, Palpable mass present and Other GI palpation findings present (Abdomen is obese and somewhat protuberant) Auscultation: normal bowel sounds Back/Spine/Pelvis Thoracic/Lumbar Spine: thoracic and lumbar spine normal to inspection and thoraco-lumbar ROM limited Skin General skin exam: no rashes or lesions noted Neuro General: patient oriented x3, No gait normal (Gait unstable ,uses walker) and no focal motor deficits Cranial nerves: Yes CN's II-XII intact bilaterally Extrem General: Yes normal to inspection, Yes no clubbing, cyanosis or edema and Yes no calf tenderness Psych Appearance: grossly normal and well kempt Speech and movement: Normal speech and movement present Assessment & Plan Assessment & Plan (1) Asthma-COPD overlap syndrome: Comment: PATIENT DOES HAVE MODERATELY ADVANCED ASTHMA COPD SYNDROME, IT HAS BEEN STABLE AND CONTROLLED WITH HER CURRENT REGIMEN. THE FEELING OF CHEST CONGESTION AND INCREASED SHORTNESS OF BREATH, WAS MAINLY RELATED BY ANXIETY ESPECIALLY AT NIGHT. THAT HAS MUCH IMPROVED , AND ALSO SIMPLIFICATION OF HER MEDICAL REGIMEN HAS HELPED. Code(s): J44.9 - Chronic obstructive pulmonary disease, unspecified Category: Medical Plan: IPRATROPIUM-ALBUTEROL SOLUTION IN THE NEBULIZER Q 6 HOURS WHILE AWAKE BUDESONIDE 0.5 MG SOLUTION IN THE NEBULIZER B.I.D. (2) Acute anxiety: Comment: PATIENT LIVES ALONE, HER LOCOMOTION IS SOMEWHAT IMPAIRED. SHE GETS VERY PANICKY WHEN SHE HAS INCREASED SHORTNESS OF BREATH. THAT IS WHAT SEEMS TO BE GOING ON NOW. NOW WITH THE USE OF LORAZEPAM 0.5 MG AT BEDTIME, SHE IS HAVING VERY GOOD SLEEP. SHE DENIES ANY ON TO WORD EFFECTS . SHE ALWAYS USES HER WALKER TO WALK AROUND SO THERE HAS BEEN NO PROBLEM WITH THE BALANCE. Code(s): F41.9 - Anxiety disorder, unspecified Category: Medical Plan: IS OKAY TO CONTINUE USING LORAZEPAM 0.5 MG AT BEDTIME. ME TRY TO CUT DOWN THAT TO HALF PILL AND SEE IF SHE CAN SLEEP GOOD. ADVISED TO BE VERY CAUTIOUS WHEN MOVING AROUND. Coding Level of Care Code Est Pt Level 3 (16486) Diagnoses Asthma-COPD overlap syndrome J44.9 Acute anxiety F41.9
== END 2025-01-02 09:24 | disposition home or self-care (01) ==
LOC: HO.HPS 08:37
PROVIDERS: PCP Internal Medicine; Visit Provider Internal Medicine
DX: J44.9 Chronic obstructive pulmonary disease, unspecified (principal); F41.9 Anxiety disorder, unspecified
CPT/HCPCS: 99213

== ENCOUNTER → 2025-01-02 08:37 | Outpatient (BNVA) | payer MEDICARE, SELFPAY | PROVIDERS: PCP Internal Medicine; Visit Provider Internal Medicine | DX: J44.9 Chronic obstructive pulmonary disease, unspecified (principal); F41.9 Anxiety disorder, unspecified | CPT/HCPCS: 99212 ==

== ENCOUNTER 2025-02-03 07:06 | Emergency (ER) | payer MEDICARE, SELFPAY ==
--- NOTE | ~2025-02-03 | CT_ITS ---
EXAMINATION: CT ABDOMEN AND PELVIS WITH CONTRAST CLINICAL INFORMATION: Right lower quadrant abdominal pain COMPARISON: May 28, 2024. TECHNIQUE: Multidetector volumetric images were obtained from the superior aspect of the liver through the pubic symphysis following administration 85 mL of Omnipaque 350 intravenous contrast. Sagittal and coronal reformatted images were obtained on the technologist's workstation. Oral contrast: No This CT examination was performed using dose optimization techniques as appropriate, variously including the following: *Automated exposure control *Adjustment of mA and/or kV according to patient size (this includes techniques or standardized protocols for targeted exams where dose is matched to indication/reason for exam; i.e. extremities or head) *Use of iterative reconstruction technique DLP: 751 mGy centimeter. FINDINGS: LUNG BASES: No gross acute airspace disease. Subcentimeter broad-based noncalcified nodules, left lower hemithorax and posteriorly on the right lung base. LIVER, GALLBLADDER, AND BILIARY TREE: Liver measures 15 cm with nodular surface. Subcentimeter hypodensity too small to be fully characterized. No gross focal mass. Portal veins and hepatic veins and intrahepatic portion of the IVC are grossly patent. Hyperdensities within the gallbladder lumen. No pericholecystic fluid collection or gallbladder wall thickening. Common bile duct measures 8 mm tapers at the junction with the duodenum. PANCREAS: Decrease volume without focal mass. No peripancreatic fluid collection. No main pancreatic ductal dilatation. SPLEEN: 8 cm. No focal mass. ADRENAL GLANDS: No nodular lesions. KIDNEYS AND URETERS: No gross hydronephrosis or nephrolithiasis. Multifocal exophytic and cortical medullary junction hypodensities throughout the renal parenchyma, the largest measures 6.4 cm in the right kidney. BLADDER: Fluid-filled GASTROINTESTINAL TRACT: I do not see the appendix. Numerous diverticula, left hemicolon mostly in the sigmoid colon. Abundant stool throughout the large intestine. Subsegmental areas of wall thickening in the mid transverse colon with a narrowed lumen. Fecal appearance of the distal ileal loops. No intestinal obstruction pattern. Scattered diverticula in the distal ileal loops. Probable diverticula in the second portion of the third portion of the duodenum. No pneumatosis intestinalis. No pneumoperitoneum. No ascites. No peripheral enhancing fluid collection in the peritoneal cavity. ABDOMINAL WALL: Fat-containing umbilical hernia and diastases abdominal rectus muscles in the periumbilical region. LYMPH NODES: Not enlarged lymph nodes in the mesenteric or retroperitoneal. VASCULAR: There is an thoracic aorta caliber 3.6 cm with a mixed plaques. Irregular shaped mixed plaques throughout the abdominal aorta and iliac arteries without aneurysm or dissection. PELVIC VISCERA: Multiple vascular clips in the presacral region. The uterus is absent. OSSEOUS STRUCTURES: Status post kyphoplasty/vertebroplasty procedure at L3. Old compression deformity, L4 and representing 80% volume loss. Grade 1 anterolisthesis L3-4 and L4-5 on a degenerative basis resulting in bilateral neuroforamina stenosis and central spinal canal stenosis. 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 CT/CT abdomen pelvis w IV con IMPRESSION: Diverticular disease versus diverticulosis and questionable superimposed noncomplicated diverticulitis in the sigmoid colon. Subsegmental wall thickening transverse colon suggesting acute to subacute inflammatory process/colitis. Hepatocellular disease/cirrhosis. Cholelithiasis. Stricture at the sphincter of Oddi should be considered. Atherosclerosis disease. Ectatic descending thoracic aorta. Bilateral renal cysts. Fat-containing umbilical hernia. Osteoporosis. Grade 1 anterolisthesis L3-4 and L4-5 resulting in central spinal canal and bilateral neuroforamina stenosis. Fleischner guidelines were followed. Electronically signed by: Price Hyde MD 02/03/2025 09:41 AM EDT
[2025-02-03 07:17] VITALS: BP 159/80; PULSE 72; RESP 18; TEMP 36; O2SAT 96; BMI 38.8
--- OUTSIDE RECORDS SUMMARY | 2025-02-03 07:32 | XMS_ITS | Clinical Summary ---
Author Organization [facility] Address [address] [place] [id number] Phone Care Team Providers Care Carbon Setter Name Role Phone John Thao MD Primary Care Provider [phone] Allergies Active Allergy Reactions Criticality Noted Date [...] 50+ Ye ars (2 of 2 - PPSV23, PCV20, or PCV21) 11/02/2017 09/07/2017 Influenza Vaccine (Season Ended) 2025 06/15/20 20 Pneumococcal Vaccine: Peds ( 0 to 5 Years) and At-Risk Patients (6 to 49 Years) Discontinued 09/07/2017 Hepatitis B Vaccine Aged Out No longe r eligible based on patient's age to complete this topic Insurance [facility] Medicare Medicaid [place] Medicare [facility] Medicaid [place] Care Teams Carbon Setter Relationship Specialty Start Date End Date John Thao MD [address] [place] [address] [id number] [place], [place] PCP - General 09/28/20
--- OUTSIDE RECORDS SUMMARY | 2025-02-03 07:32 | XMS_ITS | Clinical Summary ---
Author Organization [facility] it[facility] Address [address] [place] [id number] Care Team Providers Care Set Decorator Name Role Phone John Thao MD Primary Care Provider [phone] Social History Tobacco Use Types Packs/Day Years [...] age to complete this topic Care Teams Set Decorator Relationship Specialty Start Date End Date John Thao MD [address] [place] [address] Dr [place] PCP - General Mailroom Clerk 10/31/18
--- NOTE | 2025-02-03 07:40 | ED_ITS ---
HPI - General Adult General Chief complaint: Abdominal Pain Stated complaint: bowel obstruction Time Seen by Provider: 02/03/25 07:27 History of Present Illness ED Provider: Dr. Lunsford HPI narrative: 84 y/o F patient; PMH CKD, obesity, GERD, HTN, hypothyroidism, asthma/COPD overlap, HLD; presents from home with report of severe constipation. She states she has no had a normal bowel movement in approx 10 days. She has been trying manual disimpaction, OTC stool softeners, laxatives and prone juice without bowel movement. She reports associated right-side lower abdominal pain, nausea, and generalized non-focal headache. She has a history of hysterectomy and a tumor removal in her abdomen. Related Data Home Medications ?Medication ?Instructions ?Recorded ?Confirmed hydrochlorothiazide 25 mg tablet 25 mg PO DAILY 06/15/20 01/02/25 levothyroxine 50 mcg tablet 50 mcg PO DAILY 06/15/20 01/02/25 metoprolol succinate 50 mg 50 mg PO DAILY 06/15/20 01/02/25 tablet,extended release 24 hr albuterol sulfate 2.5 mg/3 mL 2.5 mg inhalation Q4H PRN for 03/25/24 01/02/25 (0.083 %) solution for nebulization wheezing ondansetron HCl 4 mg tablet 4 mg PO DAILY PRN 12/25/24 01/02/25 Previous Rx's ?Medication ?Instructions ?Recorded budesonide 3 mg 6 mg (2 x 3 mg) PO QAM #180 ea 06/04/24 capsule,delayed,extended release rabeprazole 20 mg tablet,delayed 20 mg PO DAILY #90 tabs 06/26/24 release (AcipHex) benzonatate 200 mg capsule 200 mg PO TID PRN cough #30 caps 09/25/24 lorazepam 0.5 mg tablet (Ativan) 0.5 mg PO BEDTIME PRN 11/28/24 anxiety/INSOMNIA 30 days #30 tabs ipratropium 0.5 mg-albuterol 3 mg 3 ml inhalation Q6H PRN 12/06/24 (2.5 mg base)/3 mL nebulization wheezing/COPD 30 days #360 mL soln albuterol sulfate 90 mcg/actuation 2 puff inhalation Q6H PRN 12/24/24 aerosol inhaler Shortness Of Breath Or Wheezing #1 ea oxycodone 5 mg tablet 5 mg PO QID PRN Pain #120 tabs 12/25/24 tramadol 50 mg tablet 50 mg PO BID #30 tabs 01/24/25 levofloxacin 500 mg tablet 500 mg PO DAILY 7 days #7 tabs 02/03/25 metronidazole 500 mg tablet 500 mg PO BID 7 days #14 tabs 02/03/25 Allergies Allergy/AdvReac Type Severity Reaction Status Date / Time gabapentin Allergy Severe severe Verified 02/03/25 07:23 urinary incont. codeine [CODEINE] Allergy Intermediate Rash Verified 02/03/25 07:23 fish derived [FISH] Allergy Intermediate HIVES Verified 02/03/25 07:23 Iodinated Contrast Media Allergy Intermediate HIVES Verified 02/03/25 07:23 [IV Dye, Iodine Containing] nitrofurantoin Allergy Intermediate HIVES Verified 02/03/25 07:23 [Nitrofurantoin] Sulfa (Sulfonamide Allergy Intermediate RASH Verified 02/03/25 07:23 Antibiotics) [SULFA (SULFONAMIDE ANTIBIOTICS)] valsartan [From DIOVAN] Allergy Intermediate HIVES Verified 02/03/25 07:23 vancomycin [VANCOMYCIN] Allergy Intermediate RASH Verified 02/03/25 07:23 Penicillins [PENICILLINS] Allergy Mild RASH Verified 02/03/25 07:23 adhesive [ADHESIVE] Allergy Unknown UNKNOWN Verified 02/03/25 07:23 hydrocodone [Vicodin] Allergy Unknown Unknown Verified 02/03/25 07:23 ibuprofen [IBUPROFEN] AdvReac Unknown UNKNOWN Verified 02/03/25 07:23 Review of Systems 2 Review of Systems: Yes all other systems are reviewed and are negative [facility] Past Medical History Attestation statement: The following information was validated with the patient. 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 difficile colitis Breast cancer Surgical History History of esophagogastroduodenoscopy (EGD) H/O colonoscopy H/O lymph node biopsy Hx of cataract surgery History of tonsillectomy and adenoidectomy H/O hysterectomy for benign disease History of total bilateral knee replacement H/O kyphoplasty Family History Family History Father No problems noted. Mother Breast cancer Sister Breast cancer Social History Social History Household Members: Children Housing: House Are you a primary care technician to a significant other at home: No Do you presently have visiting nurse or other home services: No Alcohol intake: never Patient Tobacco Use Status: Former Tobacco user Substance Use Type: Marijuana Advance Directives: Yes Advance Directives Information Provided: Yes Advance Directives on File: No service: No Current occupational status: retired Cognitive needs: No Hearing needs: No Vision needs: Yes (rx glasses) Physical Exam ED Vital Signs: Vital Signs - 24 hr 02/03/25 07:17 02/03/25 07:54 02/03/25 10:10 Temperature 96.8 F 96.7 F L Pulse Rate 72 65 71 Respiratory Rate 18 16 25 H Blood Pressure 159/80 H 126/67 149/74 H Pulse Oximetry 96 94 96 Oxygen Delivery Method Room Air Room Air Room Air Oxymizer BMI result Body Mass Index 38.8 Patient is afebrile and hemodynamically stable. Const General: cooperative Orientation/consciousness: patient oriented x3 HENMT Head: Yes normal to inspection and Yes atraumatic Eyes General: appearance normal, both eyes and all related structures Pupils: Equal, round and reactive pupils present EOM: EOMs intact bilaterally Neck Neck: Yes normal visual inspection, Yes full ROM, Yes supple and No tender Chest Chest palpation & inspection: normal inspection of the chest and normal palpation of entire chest wall Resp Effort & Inspection: normal respiratory effort, able to speak in complete sentences, no cough and no respiratory distress Auscultation: clear to auscultation bilaterally Cardio Rate: regular rate Rhythm: regular rhythm Peripheral pulses: Peripheral pulses 2+ throughout GI Other: No tenderness, distended and generally firm Inspection: Yes normal to inspection, No Abdominal wall edema and Yes distended Palpation (GI): Soft to palpation, Firmness to palpation present (GI), nontender, no guarding and not rigid Auscultation: normal bowel sounds Back/Spine/Pelvis Back: No back tenderness Neuro General: patient oriented x3 Cranial nerves: Yes Equal, round and reactive pupils present Course Course Course Narrative: Patient is afebrile and hemodynamically stable. Will obtain CT Abdomen/Pelvis, abdominal labs. Will provide 1L IVF and Zofran 4mg IV for antiemetic. Labs reviewed. No significant leukocytosis or anemia. Lipase 1.5. CT reviewed. Significant amount of stool noted in large and small intestine. Possible noncomplicated sigmoid diverticulitis. Will proceed with constipation management. Providing lactulose 20mL and glycerin suppository for hyperosmolar agents, provided 1L IVF, provided milk of magnesia for saline laxative. Plan for soap suds enema if needed 30min after glycerin suppository. Will treat diverticulitis with Flagyl and Levofloxacin due to PCN Allergy. Patient had a moderate bowel movement in the emergency department. I reviewed home management with her and her family at bedside. Recommended for daily Colace and Miralax with PRN 2-in-1 Colace with Senna. Plan: Discharge to home with PCP follow up Return precautions given Medications Administered Discontinued Medications Generic Name Dose Route Start Last Admin Trade Name Freq PRN Reason Stop Dose Admin Glycerin 1 supp 02/03/25 09:53 02/03/25 10:46 Glycerin Adult Supp.Rect PA 02/03/25 09:54 1 supp ONCE ONE Administration Sodium Chloride 1,000 mls @ 999 mls/hr 02/03/25 08:00 02/03/25 08:53 Ns IV 02/03/25 09:00 Infused .Q1H1M DEVANG Infusion Sodium Chloride 1,000 mls @ 999 mls/hr 02/03/25 10:00 02/03/25 11:06 Ns IV 02/03/25 11:00 Infused .Q1H1M DEVANG Infusion Iohexol 85 ml 02/03/25 09:21 02/03/25 09:22 Iohexol 350 Mg/Ml 100 Ml Infus..Btl IV 02/03/25 09:22 85 ml ONCE ONE Administration Lactulose 20 gm 02/03/25 09:51 02/03/25 10:05 Lactulose 20 Gm/30 Ml Solution PO 02/03/25 09:52 20 gm ONCE ONE Administration Levofloxacin 750 mg 02/03/25 10:05 02/03/25 10:46 Levofloxacin 750 Mg Tablet PO 02/03/25 10:06 750 mg ONCE ONE Administration Magnesium Hydroxide 30 ml 02/03/25 09:55 02/03/25 10:05 Milk Of Magnesia 30 Ml Oral.Susp PO 02/03/25 09:56 30 ml ONCE ONE Administration Metronidazole 500 mg 02/03/25 10:05 02/03/25 10:46 Metronidazole 500 Mg Tablet PO 02/03/25 10:06 500 mg ONCE ONE Administration Ondansetron HCl 4 mg 02/03/25 08:24 02/03/25 08:37 Ondansetron Hcl 4 Mg/2 Ml Vial IVPUSH 02/03/25 08:25 4 mg ONCE ONE Administration Ondansetron HCl 4 mg 02/03/25 11:09 02/03/25 11:33 Ondansetron Hcl 4 Mg/2 Ml Vial IVPUSH 02/03/25 11:10 4 mg ONCE ONE Administration Medical Decision Making Lab Data 02/03/25 07:44 02/03/25 07:44 Labs: Lab Results 02/03/25 02/03/25 Range/Units 07:44 08:21 WBC 10.4 (4.8-10.8) X10*3/uL RBC 4.36 (4.20-5.50) X10*6/uL Hgb 13.7 (12.0-16.0) g/dl Hct 41.4 (37.0-47.0) % MCV 95.0 (80.0-98.0) fL MCH 31.4 (27.0-33.0) pg MCHC 33.1 (31.0-35.0) g/dl RDW 13.7 (11.0-16.0) % Plt Count 301 (160-400) X10*3/uL MPV 9.6 (9.4-12.3) fL Immature Gran % (Auto) 0.7 H (0.0-0.4) % Neut % (Auto) 77.3 H (45-73) % Lymph % (Auto) 11.2 L (20-40) % Crane % (Auto) 6.9 (2-11) % Eos % (Auto) 3.3 (0-4) % Baso % (Auto) 0.6 (0-2) % Lymph # (Auto) 1.2 (1.2-4.9) X10*3/uL Crane # (Auto) 0.7 (0.1-1.2) X10*3/uL Eos # (Auto) 0.3 (0.0-0.4) X10*3/uL Baso # (Auto) 0.1 (0.0-0.2) X10*3/uL Abs Immat Gran (auto) 0.07 H (0.00-0.03) X10*3/uL Absolute Neuts (auto) 8.0 (2.0-8.3) x10*3/uL Absolute Nucleated RBC 0.000 (0.0-0.012) X10*3/uL Nucleated RBC % (auto) 0.0 (0.0-0.2) /100WBC Sodium 138 (135-145) mmol/L Potassium 3.9 (3.3-5.1) mmol/L Chloride 103 (96-108) mmol/L Carbon Dioxide 26 (22-29) mmol/L Anion Gap 13 (12-20) BUN 17 H (9-16) mg/dL Creatinine 1.30 (0.5-1.4) mg/dL Estim Creat Clear Calc 30.9 Estimated GFR 39 Random Glucose 87 (60-115) mg/dL Lactic Acid 1.5 (0.5-2.0) mmol/L Calcium 10.0 D (8.4-10.2) mg/dL Total Bilirubin 1.0 (0.0-1.0) mg/dL AST 20 (5-31) U/L ALT 16 (0-31) U/L Alkaline Phosphatase 95 (39-117) U/L Total Protein 7.5 (6.5-8.0) g/dL Albumin 3.8 (3.5-5.0) g/dL Lipase 13 (8-78) U/L Radiology Impression Discussion of test interpretation with radiology: I have reviewed the radiologist's reading. Radiologist Impression: Report Number: [id number]: Total DLP = 751.00 mGy-cm EXAMINATION: CT ABDOMEN AND PELVIS WITH CONTRAST CLINICAL INFORMATION: Right lower quadrant abdominal pain COMPARISON: May 28, 2024. TECHNIQUE: Multidetector volumetric images were obtained from the superior aspect of the liver through the pubic symphysis following administration 85 mL of Omnipaque 350 intravenous contrast. Sagittal and coronal reformatted images were obtained on the technologist's workstation. Oral contrast: No This CT examination was performed using dose optimization techniques as appropriate, variously including the following: *Automated exposure control *Adjustment of mA and/or kV according to patient size (this includes techniques or standardized protocols for targeted exams where dose is matched to indication/reason for exam; i.e. extremities or head) *Use of iterative reconstruction technique DLP: 751 mGy centimeter. FINDINGS: LUNG BASES: No gross acute airspace disease. Subcentimeter broad-based noncalcified nodules, left lower hemithorax and posteriorly on the right lung base. LIVER, GALLBLADDER, AND BILIARY TREE: Liver measures 15 cm with nodular surface. Subcentimeter hypodensity too small to be fully characterized. No gross focal mass. Portal veins and hepatic veins and intrahepatic portion of the IVC are grossly patent. Hyperdensities within the gallbladder lumen. No pericholecystic fluid collection or gallbladder wall thickening. Common bile duct measures 8 mm tapers at the junction with the duodenum. PANCREAS: Decrease volume without focal mass. No peripancreatic fluid collection. No main pancreatic ductal dilatation. SPLEEN: 8 cm. No focal mass. ADRENAL GLANDS: No nodular lesions. KIDNEYS AND URETERS: No gross hydronephrosis or nephrolithiasis. Multifocal exophytic and cortical medullary junction hypodensities throughout the renal parenchyma, the largest measures 6.4 cm in the right kidney. BLADDER: Fluid-filled GASTROINTESTINAL TRACT: I do not see the appendix. Numerous diverticula, left hemicolon mostly in the sigmoid colon. Abundant stool throughout the large intestine. Subsegmental areas of wall thickening in the mid transverse colon with a narrowed lumen. Fecal appearance of the distal ileal loops. No intestinal obstruction pattern. Scattered diverticula in the distal ileal loops. Probable diverticula in the second portion of the third portion of the duodenum. No pneumatosis intestinalis. No pneumoperitoneum. No ascites. No peripheral enhancing fluid collection in the peritoneal cavity. ABDOMINAL WALL: Fat-containing umbilical hernia and diastases abdominal rectus muscles in the periumbilical region. LYMPH NODES: Not enlarged lymph nodes in the mesenteric or retroperitoneal. VASCULAR: There is an thoracic aorta caliber 3.6 cm with a mixed plaques. Irregular shaped mixed plaques throughout the abdominal aorta and iliac arteries without aneurysm or dissection. PELVIC VISCERA: Multiple vascular clips in the presacral region. The uterus is absent. OSSEOUS STRUCTURES: Status post kyphoplasty/vertebroplasty procedure at L3. Old compression deformity, L4 and representing 80% volume loss. Grade 1 anterolisthesis L3-4 and L4-5 on a degenerative basis resulting in bilateral neuroforamina stenosis and central spinal canal stenosis. 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 CT/CT abdomen pelvis w IV con IMPRESSION: Diverticular disease versus diverticulosis and questionable superimposed noncomplicated diverticulitis in the sigmoid colon. Subsegmental wall thickening transverse colon suggesting acute to subacute inflammatory process/colitis. Hepatocellular disease/cirrhosis. Cholelithiasis. Stricture at the sphincter of Oddi should be considered. Atherosclerosis disease. Ectatic descending thoracic aorta. Bilateral renal cysts. Fat-containing umbilical hernia. Osteoporosis. Grade 1 anterolisthesis L3-4 and L4-5 resulting in central spinal canal and bilateral neuroforamina stenosis. Fleischner guidelines were followed. Electronically signed by: Price Hyde MD 02/03/2025 09:41 AM EDT Discharge Plan Discharge Clinical Impression: Diverticulitis, Constipation Patient Disposition: Home, Self-Care Instructions: Diverticulitis (DC), Constipation (DC) Additional Instructions: You were diagnosed with diverticulitis and constipation today. You are to completed 7 days of twice a day Flagyl/Metronidzole and once a day Levofloxacin. I want you to take Colace 2-in-1 twice a day for the next 3 days or until you're having multiple soft bowel movements in the day. Then change to the Colace and Miralax twice a day. Follow up with your PCP within the next 1 - 2 days for a re-evaluation and to discuss your recent emergency department visit. Return to the emergency department with any concerns! Prescriptions: New metronidazole 500 mg tablet 500 mg PO BID 7 Days Qty: 14 0RF levofloxacin 500 mg tablet 500 mg PO DAILY 7 Days Qty: 7 0RF No Action budesonide 3 mg capsule,delayed,extend.release 6 mg PO QAM Qty: 180 1RF ipratropium-albuterol 0.5 mg-3 mg(2.5 mg base)/3 mL solution for nebulization 3 ml inhalation Q6H PRN (Reason: wheezing/COPD) 30 Days Qty: 360 11RF albuterol sulfate 90 mcg/actuation HFA aerosol inhaler 2 puff inhalation Q6H PRN (Reason: Shortness Of Breath Or Wheezing) Qty: 1 3RF tramadol 50 mg tablet 50 mg PO BID Qty: 30 0RF benzonatate 200 mg capsule 200 mg PO TID PRN (Reason: cough) Qty: 30 0RF metoprolol succinate 50 mg tablet extended release 24 hr 50 mg PO DAILY hydrochlorothiazide 25 mg tablet 25 mg PO DAILY levothyroxine 50 mcg tablet 50 mcg PO DAILY albuterol sulfate 2.5 mg /3 mL (0.083 %) solution for nebulization 2.5 mg inhalation Q4H PRN (Reason: for wheezing) rabeprazole [AcipHex] 20 mg tablet,delayed release (DR/EC) 20 mg PO DAILY Qty: 90 3RF lorazepam [Ativan] 0.5 mg tablet 0.5 mg PO BEDTIME PRN (Reason: anxiety/INSOMNIA) 30 Days Qty: 30 2RF ondansetron HCl 4 mg tablet 4 mg PO DAILY PRN oxycodone 5 mg tablet 5 mg PO QID PRN (Reason: Pain) Qty: 120 0RF Print Language: Vietnamese
[2025-02-03 07:50] LABS: MANUAL DIFF FLAG NO
[2025-02-03 07:51] LABS: Basophils Absolute Auto 0.1 X10*3/uL (0.0-0.2); Basophils Percent Auto 0.6 % (0-2); Eosinophils Absolute Auto 0.3 X10*3/uL (0.0-0.4); Eosinophils Percent Auto 3.3 % (0-4); Hematocrit 41.4 % (37.0-47.0); Hemoglobin 13.7 g/dl (12.0-16.0); Imm Gran Abs Auto 0.07 X10*3/uL (0.00-0.03); Imm Gran Pct Auto 0.7 % (0.0-0.4); Lymphocytes Absolute Auto 1.2 X10*3/uL (1.2-4.9); Lymphocytes Percent Auto 11.2 % (20-40); Mean Corpuscular HGB Conc 33.1 g/dl (31.0-35.0); Mean Corpuscular Hemoglobin 31.4 pg (27.0-33.0); Mean Platelet Volume 9.6 fL (9.4-12.3); Monocytes Absolute Auto 0.7 X10*3/uL (0.1-1.2); Monocytes Percent Auto 6.9 % (2-11); Neutrophils Percent Auto 77.3 % (45-73); Platelet Count 301 X10*3/uL (160-400); Red Blood Count 4.36 X10*6/uL (4.20-5.50); Red Cell Distribution Width 13.7 % (11.0-16.0); White Blood Count 10.4 X10*3/uL (4.8-10.8)
[2025-02-03] MEDS: 0.9 % Sodium Chloride 1,000 ML 999 ML IV ×2 (07:53→10:05)
[2025-02-03 07:54] VITALS: BP 126/67; PULSE 65; RESP 16; O2SAT 94
[2025-02-03 08:08] LABS: Alanine Aminotransferase 16 U/L (0-31); Albumin Level 3.8 g/dL (3.5-5.0); Alkaline Phosphatase 95 U/L (39-117); Anion Gap 13 (12-20); Aspartate Amino Transferase 20 U/L (5-31); Blood Urea Nitrogen 17 mg/dL (9-16); Carbon Dioxide 26 mmol/L (22-29); Chloride 103 mmol/L (96-108); Creatinine Clr Calc Pharmacy 30.9; Estimated Glomerular Filt Rate 39; Glucose Random 87 mg/dL (60-115); Lipase 13 U/L (8-78); Potassium 3.9 mmol/L (3.3-5.1); Sodium 138 mmol/L (135-145); Total Protein 7.5 g/dL (6.5-8.0)
[2025-02-03] MEDS: ondansetron HCL 4 MG/2 ML VIAL IVPUSH ×2 (08:37→11:33)
[2025-02-03 08:48] LABS: Lactic Acid 1.5 mmol/L (0.5-2.0)
[2025-02-03] MEDS: iohexoL 350 MG/ML 100 ML INFUS..BTL 85 ML IV (09:22)
[2025-02-03] MEDS: Milk of Magnesia 30 ML ORAL.SUSP PO (10:05)
[2025-02-03] MEDS: Lactulose 20 GM/30 ML SOLUTION PO (10:05)
[2025-02-03 10:10] VITALS: BP 149/74; PULSE 71; RESP 25; TEMP 35.9; O2SAT 96
[2025-02-03] MEDS: metroNIDAZOLE 500 MG TABLET PO (10:46)
[2025-02-03] MEDS: levoFLOXacin 750 MG TABLET PO (10:46)
[2025-02-03] MEDS: Glycerin Adult SUPP.RECT 1 SUPP PR (10:46)
--- NOTE | 2025-02-03 12:11 | PC.NURSE ---
soap suds enema being administered at this time. patient tolerating well
--- NOTE | 2025-02-03 12:26 | PC.NURSE ---
attempting to have bowel movement on commode at this time
[2025-02-03 12:41] VITALS: BP 135/68; PULSE 64; RESP 16; TEMP 36.3; O2SAT 96
[2025-02-03 13:06] VITALS: BP 135/68; PULSE 64; RESP 16; TEMP 36.3; O2SAT 96
== END 2025-02-03 13:06 | disposition home or self-care (01) ==
PROVIDERS: Emergency Provider Emergency Medicine; PCP Internal Medicine
DX: K57.32 Diverticulitis of large intestine without perforation or abscess without bleeding (principal); K59.00 Constipation, unspecified; J45.909 Unspecified asthma, uncomplicated; I10 Essential (primary) hypertension; E78.5 Hyperlipidemia, unspecified; Z87.891 Personal history of nicotine dependence; Z79.899 Other long term (current) drug therapy
CPT/HCPCS: 36415; 74177; 80053; 83605; 83690; 85025; 96361; 96374; 96376; 99284; 99285; J2405; Q9967

== ENCOUNTER → 2025-02-03 07:45 | Outpatient (BNV) | payer MEDICARE, SELFPAY | PROVIDERS: Emergency Provider Emergency Medicine; PCP Internal Medicine; Visit Provider Radiology Diagnostic Radiology | DX: K80.21 Calculus of gallbladder without cholecystitis with obstruction (principal) | CPT/HCPCS: 74177 ==

== ENCOUNTER 2025-02-04 09:45 | Observation (INO) | payer MEDICARE, SELFPAY ==
[2025-02-04] VITALS (8 sets, daily range): BP systolic 121–167; BP diastolic 61–78; PULSE 68–88; RESP 16–25; TEMP 36.2–36.6; O2SAT 93–99; BMI 39.5
--- NOTE | ~2025-02-04 | XR_ITS ---
EXAMINATION: XR CHEST CLINICAL INFORMATION: wheezing COMPARISON: None available. TECHNIQUE: Frontal view of the chest was obtained. FINDINGS: Mild prominence of the interstitial markings. Haziness in the mid to lower hemithorax is. Decreased opacity shadow the left breast. Cardiomediastinal silhouette margins are indistinct. Calcified plaque aortic arch. Old traumatic deformity with volume loss, right humeral head and glenoid right scapula. Osteopenia versus osteoporosis. Patient's large body habitus. XR/XR chest 1V IMPRESSION: Probable mild interstitial lung edema with questionable bilateral small pleural effusions. Electronically signed by: Price Hyde MD 02/04/2025 12:22 PM EDT
--- NOTE | ~2025-02-04 | CT_ITS ---
EXAMINATION: CT SOFT TISSUE NECK WITH CONTRAST CLINICAL INFORMATION: Difficulty swallowing. Swelling uvula. COMPARISON: March 11, 2021. TECHNIQUE: Following the intravenous administration of 75 mL of Omnipaque 350 intravenous contrast, helical imaging was performed in the axial plane with generation of coronal and sagittal reformatted images. This CT examination was performed using dose optimization techniques as appropriate, variously including the following: *Automated exposure control *Adjustment of mA and/or kV according to patient size (this includes techniques or standardized protocols for targeted exams where dose is matched to indication/reason for exam; i.e. extremities or head) *Use of iterative reconstruction technique DLP: 383 mGy centimeter. FINDINGS: Skull base, nasopharynx, retropharynx, oropharynx, hypopharynx and larynx demonstrated nodularity and the lingual tonsils with secretions into the vallecula. There is retropharyngeal trajectory of the ICAs, bilaterally. Growth Hacker spaces, parapharyngeal spaces and carotid spaces demonstrated no gross masses or fluid collections. Salivary glands demonstrated a predominantly solid enhancing nodules, the largest measures 1.5 cm in the posterior inferior superficial right parotid gland. There is an heterogeneous nodular morphology of the submandibular glands with mild prominent ducts/ascini. No sialolithiasis. Calcified plaques in the carotid bulbs and proximal ICAs. There is normal patency of the vessels. Calcified plaques in the aortic arch and its main entities. The thyroid gland is not enlarged with a dominant right thyroid lobe. No gross lymphadenopathy. Edentulous. There is a large Nasal septum defect. No masses or fluid collections in the intraconal or extraconal compartments of the orbits. Pulmonary mosaic pattern, bilaterally. Tympanic cavities and mastoid cells are aerated. No air-fluid levels in the paranasal sinuses. Multilevel spondylosis, C4 C7.. 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 Inflammatory versus infectious processes versus autoimmune disorders versus immunocompromised disorders of the submandibular glands. Inflammatory versus infectious process, lingual tonsils. Electronically signed by: Price Hyde MD 02/04/2025 02:19 PM EDT
--- NOTE | 2025-02-04 10:47 | PC.NURSE ---
Pt is able to speak in full sentences. is SOB at rest in bed with diminished LS and exp wheeze. last updraft was last noc. Skin pwd. uvula is reddnes and only sligtly swollen but dry looking. pt states she's unable to handle secretions but appears to be doing so w/o diff. SNR on monitor. awaits provider. son at bedside.
[2025-02-04 10:51] LABS: Basophils Absolute Auto 0.1 X10*3/uL (0.0-0.2); Basophils Percent Auto 0.8 % (0-2); Eosinophils Absolute Auto 0.4 X10*3/uL (0.0-0.4); Eosinophils Percent Auto 4.5 % (0-4); Hematocrit 40.6 % (37.0-47.0); Hemoglobin 13.1 g/dl (12.0-16.0); Imm Gran Abs Auto 0.12 X10*3/uL (0.00-0.03); Imm Gran Pct Auto 1.3 % (0.0-0.4); Lymphocytes Absolute Auto 1.2 X10*3/uL (1.2-4.9); Lymphocytes Percent Auto 13.2 % (20-40); MANUAL DIFF FLAG NO; Mean Corpuscular HGB Conc 32.3 g/dl (31.0-35.0); Mean Platelet Volume 9.7 fL (9.4-12.3); Monocytes Absolute Auto 0.8 X10*3/uL (0.1-1.2); Monocytes Percent Auto 8.3 % (2-11); Neutrophils Absolute Auto 6.5 x10*3/uL (2.0-8.3); Neutrophils Percent Auto 71.9 % (45-73); Platelet Count 284 X10*3/uL (160-400); Red Blood Count 4.23 X10*6/uL (4.20-5.50); Red Cell Distribution Width 13.8 % (11.0-16.0); White Blood Count 9.1 X10*3/uL (4.8-10.8)
[2025-02-04 11:04] LABS: IDNOW Serial# 55D5AD1C; Strep A Nucleic Acid Negative (Negative)
[2025-02-04 11:06] LABS: Alanine Aminotransferase 16 U/L (0-31); Albumin Level 3.7 g/dL (3.5-5.0); Alkaline Phosphatase 87 U/L (39-117); Anion Gap 13 (12-20); Aspartate Amino Transferase 25 U/L (5-31); Blood Urea Nitrogen 13 mg/dL (9-16); C Reactive Protein 1.81 mg/dL (< or = 0.50); Carbon Dioxide 25 mmol/L (22-29); Chloride 104 mmol/L (96-108); Creatinine Clr Calc Pharmacy 31.5; Estimated Glomerular Filt Rate 39; Glucose Random 86 mg/dL (60-115); Magnesium 1.9 mg/dL (1.6-2.6); Potassium 4.1 mmol/L (3.3-5.1); Sodium 138 mmol/L (135-145); Total Protein 7.2 g/dL (6.5-8.0)
[2025-02-04 11:28] LABS: Erythrocyte Sedimentation Rate 49 MM/HR (0-20)
[2025-02-04 11:30] LABS: Influenza A PCR NEGATIVE (Negative); Influenza B PCR NEGATIVE (Negative); Resp Syncy Virus RNA Qual PCR NEGATIVE (Negative); SARS COV2 PCR INHOUSE NEGATIVE (Negative)
[2025-02-04] MEDS: dexAMETHasone sod phosphate 4 MG/ML VIAL 8 MG IVPUSH (11:47)
[2025-02-04] MEDS: diphenhydrAMINE HCL 50 MG/ML VIAL 25 MG IVPUSH (11:48)
--- OUTSIDE RECORDS SUMMARY | 2025-02-04 12:10 | XMS_ITS | Clinical Summary ---
Author Organization [facility] ity Address [id number] [place] [id number] Care Team Providers Care Hot Frame Tender Name Role Phone John Thao MD Primary Care Provider [phone] Social History Tobacco Use Types Packs/Day Years [...] age to complete this topic Care Teams Hot Frame Tender Relationship Specialty Start Date End Date John Thao MD [address] [place] [address] Dr [place] PCP - General Database Security Expert 10/31/18
--- OUTSIDE RECORDS SUMMARY | 2025-02-04 12:10 | XMS_ITS | Clinical Summary ---
Author Organization [facility] Address [address] [place] [id number] Phone Care Team Providers Care Esthetician Name Role Phone John Thao MD Primary Care Provider [phone] Allergies Active Allergy Reactions Criticality Noted Date [...] complete this topic Insurance [facility] [place] [facility] [place] Care Teams Esthetician Relationship Specialty Start Date End Date John Thao MD [address] [place] [address] [id number] [place], [place] PCP - General 09/28/20
--- NOTE | 2025-02-04 12:21 | ED.ALLEREA ---
HPI - Allergic Reaction General Chief complaint: Allergic Reaction Stated complaint: Reaction from meds Time Seen by Provider: 02/04/25 11:35 Source: patient, RN notes reviewed and old records reviewed Mode of arrival: ambulatory Limitations: no limitations History of Present Illness ED Provider: Reva Dean PA-C HPI narrative: 84 yo female with history of COPD/asthma, breast cancer, CKD, HLD, osteoporosis, irritable bowel syndrome, HTN, hx bilateral parotid tumors s/p resection, hx breast cancer, hx thyroid cancer who presents to the ER for evaluation of an allergic reaction. She was seen here yesterday and diagnosed with diverticulitis and constipation, discharged on levofloxacin and flagyl. She reports shortly after she took the antibiotics last night she developed sensation of throat closing and neck swelling. She states her throat feels dry and swollen. She feels difficultly swallowing. This also endorses SOB and wheezing that she reports were present prior to the antibiotics and she suffers from chronic SOB with her COPD. She denies any associated rashes. She reports with all of her other allergic reactions she got hives. She denies any associated fever, chills, vomiting, abdominal pain, or chest pain. Her abdominal pain is overall improved and she was having bowel movements after an enema last night. MD complaint: allergic reaction Onset (ago): hour(s) Exposure: medication Symptoms: difficulty swallowing, difficulty breathing and other (neck swelling) Treatment prior to arrival: none Previous Allergic Reaction History: prior ED visit(s) Related Data Home Medications ?Medication ?Instructions ?Recorded ?Confirmed hydrochlorothiazide 25 mg tablet 25 mg PO DAILY 06/15/20 01/02/25 levothyroxine 50 mcg tablet 50 mcg PO DAILY 06/15/20 01/02/25 metoprolol succinate 50 mg 50 mg PO DAILY 06/15/20 01/02/25 tablet,extended release 24 hr albuterol sulfate 2.5 mg/3 mL 2.5 mg inhalation Q4H PRN for 03/25/24 01/02/25 (0.083 %) solution for nebulization wheezing ondansetron HCl 4 mg tablet 4 mg PO DAILY PRN 12/25/24 01/02/25 fluticasone 250 mcg-salmeterol 50 inhalation BID 02/04/25 02/04/25 mcg/dose blistr powdr for inhalation (Wixela Inhub) Previous Rx's ?Medication ?Instructions ?Recorded budesonide 3 mg 6 mg (2 x 3 mg) PO QAM #180 ea 06/04/24 capsule,delayed,extended release rabeprazole 20 mg tablet,delayed 20 mg PO DAILY #90 tabs 06/26/24 release (AcipHex) benzonatate 200 mg capsule 200 mg PO TID PRN cough #30 caps 09/25/24 lorazepam 0.5 mg tablet (Ativan) 0.5 mg PO BEDTIME PRN 11/28/24 anxiety/INSOMNIA 30 days #30 tabs ipratropium 0.5 mg-albuterol 3 mg 3 ml inhalation Q6H PRN 12/06/24 (2.5 mg base)/3 mL nebulization wheezing/COPD 30 days #360 mL soln albuterol sulfate 90 mcg/actuation 2 puff inhalation Q6H PRN 12/24/24 aerosol inhaler Shortness Of Breath Or Wheezing #1 ea oxycodone 5 mg tablet 5 mg PO QID PRN Pain #120 tabs 12/25/24 tramadol 50 mg tablet 50 mg PO BID #30 tabs 01/24/25 levofloxacin 500 mg tablet 500 mg PO DAILY 7 days #7 tabs 02/03/25 metronidazole 500 mg tablet 500 mg PO BID 7 days #14 tabs 02/03/25 Allergies Allergy/AdvReac Type Severity Reaction Status Date / Time gabapentin Allergy Severe severe Verified 02/04/25 10:23 urinary incont. codeine [CODEINE] Allergy Intermediate Rash Verified 02/04/25 10:23 fish derived [FISH] Allergy Intermediate HIVES Verified 02/04/25 10:23 Iodinated Contrast Media Allergy Intermediate HIVES Verified 02/04/25 10:23 [IV Dye, Iodine Containing] nitrofurantoin Allergy Intermediate HIVES Verified 02/04/25 10:23 [Nitrofurantoin] Sulfa (Sulfonamide Allergy Intermediate RASH Verified 02/04/25 10:23 Antibiotics) [SULFA (SULFONAMIDE ANTIBIOTICS)] valsartan [From DIOVAN] Allergy Intermediate HIVES Verified 02/04/25 10:23 vancomycin [VANCOMYCIN] Allergy Intermediate RASH Verified 02/04/25 10:23 Penicillins [PENICILLINS] Allergy Mild RASH Verified 02/04/25 10:23 adhesive [ADHESIVE] Allergy Unknown UNKNOWN Verified 02/04/25 10:23 hydrocodone [Vicodin] Allergy Unknown Unknown Verified 02/04/25 10:23 ibuprofen [IBUPROFEN] AdvReac Unknown UNKNOWN Verified 02/04/25 10:23 Review of Systems Review of Systems: Yes all other systems are reviewed and are negative [facility] Past Medical History Medical History Acute anxiety Neuropathy of left ulnar nerve at wrist Compression fracture of C1 vertebra 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 difficile colitis Breast cancer Surgical History History of esophagogastroduodenoscopy (EGD) H/O colonoscopy H/O lymph node biopsy Hx of cataract surgery History of tonsillectomy and adenoidectomy H/O hysterectomy for benign disease History of total bilateral knee replacement H/O kyphoplasty Family History Family History Father No problems noted. Mother Breast cancer Sister Breast cancer Social History Social History Household Members: Children Housing: House Are you a primary restorative care technician to a significant other at home: No Do you presently have visiting nurse or other home services: No Alcohol intake: never Patient Tobacco Use Status: Former Tobacco user Smoked in Last 30 Days: No Use of substances other than those prescribed or required for medical reasons: No Substance Use Type: Marijuana Advance Directives: Yes Advance Directives Information Provided: No Advance Directives on File: No service: No Current occupational status: retired Cognitive needs: No Hearing needs: No Vision needs: Yes (rx glasses) Physical Exam ED Vital Signs: Vital Signs - 24 hr 02/04/25 10:22 02/04/25 10:45 02/04/25 12:38 Temperature 97.1 F Pulse Rate 71 68 70 Respiratory Rate 16 22 H 20 Blood Pressure 167/70 H 155/78 H Pulse Oximetry 96 99 Oxygen Delivery Method Room Air Room Air 02/04/25 15:11 02/04/25 15:24 02/04/25 15:48 Temperature 97.9 F Pulse Rate 88 84 Respiratory Rate 16 22 H 18 Blood Pressure 121/61 Pulse Oximetry 93 Oxygen Delivery Method Room Air BMI result Body Mass Index 39.5 Appearance: Alert. Oriented X3. Mild respiratory distress. Head: normocephalic, atraumatic. Eyes: Pupils equal, round and reactive to light. ENT: Pharynx with dry mucus membranes. Uvula edematous, erythematous and dry, touching the tongue. No tonsilar swelling or exudate. Neck: Normal inspection, difficult to assess for swelling. tender soft tissues in the submandibular areas bilaterally. CVS: Normal heart rate and rhythm. Pulses normal. Respiratory: No respiratory distress. Breath sounds normal. Abdomen: Soft and nontender. +BS x4 Skin: Skin warm and dry. Normal skin color. Normal skin turgor. No rashes. Extremities: No lower extremity edema. No joint swelling. Neuro/psych: Oriented X 3. No motor deficit. No sensory deficit. CN II-XII intact. Normal speech and cognition. Medications Administered Discontinued Medications Generic Name Dose Route Start Last Admin Trade Name Freq PRN Reason Stop Dose Admin Albuterol/Ipratropium 3 ml 02/04/25 15:00 02/04/25 15:46 Albuterol/Iprat 2.5/0.5mg 3 Ml Ampul.Neb INHALE 02/04/25 15:01 3 ml ONCE ONE Administration Ceftriaxone Sodium 1 gm 02/04/25 13:25 02/04/25 14:26 Ceftriaxone Sodium 1 Gm Vial IVPUSH 02/04/25 13:26 1 gm ONCE ONE Administration Albuterol Sulfate 2.5 mg/ 0 mg 02/04/25 12:32 02/04/25 12:36 Albuterol/Ipratropium 3 ml INHALE 02/04/25 12:33 5 dose ONCE ONE Administration Dexamethasone Sodium Phosphate 8 mg 02/04/25 11:35 02/04/25 11:47 Dexamethasone Sod Phosphate 4 Mg/Ml Vial IVPUSH 02/04/25 11:36 8 mg ONCE ONE Administration Diphenhydramine HCl 25 mg 02/04/25 11:35 02/04/25 11:48 Diphenhydramine Hcl 50 Mg/Ml Vial IVPUSH 02/04/25 11:36 25 mg ONCE ONE Administration Azithromycin 500 mg/ Sodium 250 mls @ 125 mls/hr 02/04/25 13:25 02/04/25 14:26 Chloride IV 02/04/25 15:24 125 mls/hr ONCE ONE Administration Iohexol 100 ml 02/04/25 14:00 02/04/25 14:00 Iohexol 350 Mg/Ml 100 Ml Infus..Btl IV 02/04/25 14:01 60 ml ONCE ONE Administration Morphine Sulfate 4 mg 02/04/25 15:00 02/04/25 15:24 Morphine Sulfate 4 Mg/Ml Cartridge IVPUSH 02/04/25 15:01 4 mg ONCE ONE Administration Protocol Ondansetron HCl 4 mg 02/04/25 15:00 02/04/25 15:24 Ondansetron Hcl 4 Mg/2 Ml Vial IVPUSH 02/04/25 15:01 4 mg ONCE ONE Administration Medical Decision Making Medical Decision Making MDM Narrative: 84 yo female with history of COPD/asthma, breast cancer, CKD, HLD, osteoporosis, irritable bowel syndrome, HTN, hx bilateral parotid tumors s/p resection, hx breast cancer, hx thyroid cancer who presents to the ER for evaluation of an allergic reaction. She has obvious uvula swelling. she is dyspneic and wheezing. IV established and given IV decadron and benadryl along with ED bronchodilator protocol labs showing no leukocytosis. CXR with interstitial edema and small effusions. BNP 148. no hx CHF 13:20 - patient reassessed after meds and nebs. she continues to be wheezy, SOB and c/o difficultly swallowing. CT soft tissue of the neck ordered. concern for possible viral vs bacterial cause of her swollen uvula and SOB. empiric azithromycin and rocephin ordered. 14:35 - CT scan with inflammed submandibular glands and lingual tonsils. 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 another neb ordered. will plan for admission, close airway monitoring. Differential Diagnosis Differential Diagnoses: The differential diagnosis associated with the presentation includes allergic reaction, uvulitis, COPD exacerbation, CHF exacerbation, anaphylaxis, epiglottitis Admission/Observation Consideration of admission/observation: Escalation of care including admission/observation considered Consult Healthcare Provider Management of the patient was discussed with: Hospitalist Dr. Brown Lab Data [facility] Lab Attestation statement: I reviewed the patient's lab results. 02/04/25 10:44 02/04/25 10:44 Labs: Lab Results 02/04/25 02/04/25 02/04/25 Range/Units 10:42 10:44 14:10 WBC 9.1 (4.8-10.8) X10*3/uL RBC 4.23 (4.20-5.50) X10*6/uL Hgb 13.1 (12.0-16.0) g/dl Hct 40.6 (37.0-47.0) % MCV 96.0 (80.0-98.0) fL MCH 31.0 (27.0-33.0) pg MCHC 32.3 (31.0-35.0) g/dl RDW 13.8 (11.0-16.0) % Plt Count 284 (160-400) X10*3/uL MPV 9.7 (9.4-12.3) fL Immature Gran % (Auto) 1.3 H (0.0-0.4) % Neut % (Auto) 71.9 (45-73) % Lymph % (Auto) 13.2 L (20-40) % [place] % (Auto) 8.3 (2-11) % Eos % (Auto) 4.5 H (0-4) % Baso % (Auto) 0.8 (0-2) % Lymph # (Auto) 1.2 (1.2-4.9) X10*3/uL [place] # (Auto) 0.8 (0.1-1.2) X10*3/uL Eos # (Auto) 0.4 (0.0-0.4) X10*3/uL Baso # (Auto) 0.1 (0.0-0.2) X10*3/uL Abs Immat Gran (auto) 0.12 H (0.00-0.03) X10*3/uL Absolute Neuts (auto) 6.5 (2.0-8.3) x10*3/uL Absolute Nucleated RBC 0.000 (0.0-0.012) X10*3/uL Nucleated RBC % (auto) 0.0 (0.0-0.2) /100WBC ESR 49 H (0-20) MM/HR Sodium 138 (135-145) mmol/L Potassium 4.1 (3.3-5.1) mmol/L Chloride 104 (96-108) mmol/L Carbon Dioxide 25 (22-29) mmol/L Anion Gap 13 (12-20) BUN 13 (9-16) mg/dL Creatinine 1.29 (0.5-1.4) mg/dL Estim Creat Clear Calc 31.5 Estimated GFR 39 Random Glucose 86 (60-115) mg/dL Lactic Acid 1.7 (0.5-2.0) mmol/L Calcium 10.0 (8.4-10.2) mg/dL Magnesium 1.9 (1.6-2.6) mg/dL Total Bilirubin 1.0 (0.0-1.0) mg/dL AST 25 (5-31) U/L ALT 16 (0-31) U/L Alkaline Phosphatase 87 (39-117) U/L C-Reactive Protein 1.81 H (< or = 0.50) mg/dL B-Natriuretic Peptide 148 H (<100) pg/mL Total Protein 7.2 (6.5-8.0) g/dL Albumin 3.7 (3.5-5.0) g/dL Influenza Type A (PCR) NEGATIVE (Negative) Influenza Type B (PCR) NEGATIVE (Negative) RSV RNA Qual (PCR) NEGATIVE (Negative) SARS-CoV-2 RNA (RT-PCR) NEGATIVE (Negative) S. pyogenes GrpA ABISAI Negative (Negative) Independent Interpretation I performed an independent interpretation of an: EKG, Plain X-Ray and CT Scan Interpretation: cxr with increased markings CT scan with airway narrowing below the cords, large uvula and inflammed LN ekg with normal sinus rhythm, HR 85 bpm, artifact present, no ST segment elevations Radiology Impression Discussion of test interpretation with radiology: I have reviewed the radiologist's reading. Independent Historian Clinical information obtained from an independent historian. History obtained from or confirmed by: Other (adult child at the bedside) External Record Review External record reviewed: Inpatient record, Office record, Outpatient record, Prior outpatient labs and Prior outpatient radiology Prescription Management I considered prescription management with: Pain Medication and Antibiotic Chronic Conditions Patient?s care impacted by: Other (COPD) Critical Care Time Critical Care Time Critical Care Time: Yes Total Critical Care Time: 45 Attestation: I have personally provided critical care time exclusive of time spent on separately billable procedures. Time includes review of lab data, radiology results, discussion with consultants, and monitoring for potential decompensation. Intervention performed as documented. Discharge Plan Discharge Clinical Impression: Uvulitis, COPD exacerbation Patient Disposition: Admitted As Inpatient Print Language: Portuguese
[2025-02-04] MEDS: Albuterol Sulfate 2.5 MG, Albuterol/Iprat 2.5/0.5MG 3 ML 3 ML INHALE (12:36)
[2025-02-04 12:59] LABS: B Type Natriuretic Peptide 148 pg/mL (<100)
[2025-02-04] MEDS: iohexoL 350 MG/ML 100 ML INFUS..BTL IV (14:00)
[2025-02-04] MEDS: Azithromycin 500 MG in 0.9 % Sodium Chloride 250 ML 125 MG IV (14:26)
[2025-02-04] MEDS: cefTRIAXone sodium 1 GM VIAL IVPUSH (14:26)
[2025-02-04 15:02] LABS: Lactic Acid 1.7 mmol/L (0.5-2.0)
[2025-02-04] MEDS: Morphine Sulfate 4 MG/ML CARTRIDGE IVPUSH (15:24)
[2025-02-04] MEDS: ondansetron HCL 4 MG/2 ML VIAL IVPUSH (15:24)
--- NOTE | 2025-02-04 15:28 | ECG_ITS ---
Test Reason : sob Blood Pressure : */* mmHG Vent. 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
[2025-02-04] MEDS: Albuterol/Iprat 2.5/0.5MG 3 ML AMPUL.NEB INHALE (15:46)
--- NOTE | 2025-02-04 15:47 | PM.IMHP ---
History of Present Illness Date of Service: 02/04/25 Chief Complaint: sore throate, swelling An 84 years old lady with PMH of COPD\Asthma, CKD, HLD, osteoporosis, irritable bowel syndrome, HTN, hx bilateral parotid tumors s/p resection, hx breast cancer, hx thyroid cancer presenting to ED with throat swelling. The patient was discharted on LEvaquin and Flagyl from ED yesterday for reported Diverticulitis. received the medicaitons in hospital prior to discharge with no reported issues. She took medicaitons last night at home and had this worsening feeling of swelling in neck and throat closing associated with wheezing and SOB this morning. no skin rash or hives. No chest pain, palpitations, SOB, nausea, vomiting, diarrhea or urinary symptoms, no fever or chills. Abdominal pain improved and she had bowel movement. In ED recieved steroids IV , Benadryl, Ceftriaxone and Azitrhomycin along with nebulizers with fair response. admit for further monitoring. 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 difficile colitis Breast cancer Family History Father No problems noted. Mother Breast cancer Sister Breast cancer Surgical History History of esophagogastroduodenoscopy (EGD) H/O colonoscopy H/O lymph node biopsy Hx of cataract surgery History of tonsillectomy and adenoidectomy H/O hysterectomy for benign disease History of total bilateral knee replacement H/O kyphoplasty Social History Household Members: Children Housing: House Are you a primary wound care nurse to a significant other at home: No Do you presently have visiting nurse or other home services: No Alcohol intake: never Patient Tobacco Use Status: Former Tobacco user Smoked in Last 30 Days: No Use of substances other than those prescribed or required for medical reasons: No Substance Use Type: Marijuana Advance Directives: Yes Advance Directives Information Provided: No Advance Directives on File: No service: No Current occupational status: retired Cognitive needs: No Hearing needs: No Vision needs: Yes (rx glasses) Meds Allergies Allergy/AdvReac Type Severity Reaction Status Date / Time gabapentin Allergy Severe severe Verified 02/04/25 10:23 urinary incont. codeine [CODEINE] Allergy Intermediate Rash Verified 02/04/25 10:23 fish derived [FISH] Allergy Intermediate HIVES Verified 02/04/25 10:23 Iodinated Contrast Media Allergy Intermediate HIVES Verified 02/04/25 10:23 [IV Dye, Iodine Containing] nitrofurantoin Allergy Intermediate HIVES Verified 02/04/25 10:23 [Nitrofurantoin] Sulfa (Sulfonamide Allergy Intermediate RASH Verified 02/04/25 10:23 Antibiotics) [SULFA (SULFONAMIDE ANTIBIOTICS)] valsartan [From DIOVAN] Allergy Intermediate HIVES Verified 02/04/25 10:23 vancomycin [VANCOMYCIN] Allergy Intermediate RASH Verified 02/04/25 10:23 Penicillins [PENICILLINS] Allergy Mild RASH Verified 02/04/25 10:23 adhesive [ADHESIVE] Allergy Unknown UNKNOWN Verified 02/04/25 10:23 hydrocodone [Vicodin] Allergy Unknown Unknown Verified 02/04/25 10:23 ibuprofen [IBUPROFEN] AdvReac Unknown UNKNOWN Verified 02/04/25 10:23 Home Medications ?Medication ?Instructions ?Recorded ?Confirmed ?Last Taken ?Type hydrochlorothiazide 25 mg tablet 25 mg PO DAILY 06/15/20 02/04/25 02/04/25 History levothyroxine 50 mcg tablet 50 mcg PO DAILY@0600 06/15/20 02/04/25 02/04/25 History metoprolol succinate 50 mg 50 mg PO DAILY 06/15/20 02/04/25 02/04/25 History tablet,extended release 24 hr albuterol sulfate 2.5 mg/3 mL 2.5 mg inhalation Q4H PRN for 03/25/24 02/04/25 Unknown History (0.083 %) solution for nebulization wheezing ondansetron HCl 4 mg tablet 4 mg PO DAILY PRN Nausea And 12/25/24 02/04/25 Unknown History Vomiting budesonide 3 mg 6 mg PO DAILY 02/04/25 02/04/25 02/04/25 History capsule,delayed,extended release Physical Exam Vital Signs and Narrative: Vital Signs: Last Vital Signs Temp 97.9 F 02/04/25 15:11 Pulse 88 02/04/25 15:11 Resp 22 H 02/04/25 15:24 BP 121/61 02/04/25 15:11 Pulse Ox 93 02/04/25 15:11 O2 Del Method Room Air 02/04/25 15:11 BMI result Body Mass Index 39.5 Const: Other: Constitutional : Awake, interactive, not in distress Neck : Normal inspection, Supple, throat clear with no significant swelling\erythema Cardiovascular : RRR, no JVP, no lower extremity edema Respiratory : good bilateral air entry, no crackles, wheezes or rhonchi Gastrointestinal: soft, lax, Normal bowel sounds, Non tender Skin : Warm, Dry Neurological : Alert & oriented x3, No focal deficit Results Labs 02/04/25 10:44 02/04/25 10:44 Labs: Laboratory Results - last 24 hr 02/04/25 02/04/25 02/04/25 10:42 10:44 14:10 MCV 96.0 MCH 31.0 MCHC 32.3 RDW 13.8 Plt Count 284 MPV 9.7 Immature Gran % (Auto) 1.3 H Neut % (Auto) 71.9 Lymph % (Auto) 13.2 L [place] % (Auto) 8.3 Eos % (Auto) 4.5 H Baso % (Auto) 0.8 Lymph # (Auto) 1.2 [place] # (Auto) 0.8 Eos # (Auto) 0.4 Baso # (Auto) 0.1 Abs Immat Gran (auto) 0.12 H Absolute Neuts (auto) 6.5 Absolute Nucleated RBC 0.000 Nucleated RBC % (auto) 0.0 ESR 49 H Anion Gap 13 Estim Creat Clear Calc 31.5 Estimated GFR 39 Random Glucose 86 Lactic Acid 1.7 Calcium 10.0 Magnesium 1.9 Total Bilirubin 1.0 AST 25 ALT 16 Alkaline Phosphatase 87 C-Reactive Protein 1.81 H B-Natriuretic Peptide 148 H Total Protein 7.2 Albumin 3.7 Influenza Type A (PCR) NEGATIVE Influenza Type B (PCR) NEGATIVE RSV RNA Qual (PCR) NEGATIVE SARS-CoV-2 RNA (RT-PCR) NEGATIVE S. pyogenes GrpA ABISAI Negative Imaging Radiologist's Impressions: Impressions Chest X-Ray 02/04/25 11:36 IMPRESSION: Probable mild interstitial lung edema with questionable bilateral small pleural effusions. Electronically signed by: Price Hyde MD 02/04/2025 12:22 PM EDT RP Soft Tissue Neck CT 02/04/25 13:18 IMPRESSION: Residual/recurrent benign mixed tumor versus markings tumor, right parotid gland. Inflammatory versus infectious processes versus autoimmune disorders versus immunocompromised disorders of the submandibular glands. Inflammatory versus infectious process, lingual tonsils. Electronically signed by: Price Hyde MD 02/04/2025 02:19 PM EDT RP Assessment and Plan (1) COPD exacerbation: Status: Acute (2) Colitis: Status: Acute (3) Allergic reaction: Status: Acute Plan An 84 years old lady with PMH of COPD\Asthma, CKD, HLD, osteoporosis, irritable bowel syndrome, HTN, hx bilateral parotid tumors s/p resection, hx breast cancer, hx thyroid cancer presenting to ED with throat swelling. Throat swelling likely allergic reaction\viral infection Steroids H1\H2 blockers Benadryl PRN monitoring colitis\Diverticulitis Ceftriaxone and Flagyl COPD exacerbation steroids NEbulizers pending med rec DVT PPx Lovenox Quality Stroke Does the patient have a stroke diagnosis?: No VTE Prior VTE?: No VTE Risk Level:: Medical - moderate - high VTE Device Contraindication: Treatment Not Indicated VTE Drug Contraindication: N/A - Med Ordered
--- NOTE | 2025-02-04 16:31 | PHA.MEDREC ---
Addendum entered by Ivette Alejandra [facility] 02/04/25 16:56: REVIEWED Original Note: Pharmacy Consult ? Medication Reconciliation Pharmacy has completed the medication reconciliation. Spoke to patient and at bedside to confirm med list. had a list of patient medications. Patient states she is no longer taking Wixela , spiriva. Patient states she is using her nebulizer.
[2025-02-04] MEDS: LORazepam 0.5 MG TABLET PO (21:11)
[2025-02-04] MEDS: Melatonin 3 MG TABLET 6 MG PO (21:11)
[2025-02-04] MEDS: traMADoL HCL 50 MG TABLET PO (21:11)
[2025-02-04] MEDS: Famotidine 20 MG TABLET PO (21:11)
[2025-02-04] MEDS: metroNIDAZOLE 250 MG TABLET PO (23:00)
--- NOTE | 2025-02-04 23:54 | PC.NURSE ---
took over care at 23:00, Admission report submitted prior to my shift.
[2025-02-05 00:37] VITALS: BMI 39.3
[2025-02-05] MEDS: 0.9 % Sodium Chloride Flush 3 ML SYRINGE IVFLUSH ×2 (00:44→07:37)
[2025-02-05] MEDS: oxyCODONE HCl Immed Release 5 MG TABLET PO ×3 (00:47→11:33)
[2025-02-05 00:53] VITALS: BP 146/68; PULSE 74; RESP 18; TEMP 36.2; O2SAT 98
[2025-02-05 04:00] VITALS: BP 133/70; PULSE 67; RESP 18; TEMP 36.3; O2SAT 96
[2025-02-05 06:39] LABS: MANUAL DIFF FLAG NO
[2025-02-05] MEDS: Levothyroxine Sodium 50 MCG TABLET PO (06:39)
[2025-02-05 07:02] LABS: Anion Gap 16 (12-20); Blood Urea Nitrogen 20 mg/dL (9-16); Calcium 10.1 mg/dL (8.4-10.2); Carbon Dioxide 25 mmol/L (22-29); Chloride 104 mmol/L (96-108); Creatinine Clr Calc Pharmacy 26.4; Estimated Glomerular Filt Rate 32; Glucose Random 106 mg/dL (60-115); Potassium 4.5 mmol/L (3.3-5.1); Sodium 140 mmol/L (135-145)
[2025-02-05 07:25] VITALS: BP 145/67; PULSE 72; RESP 16; TEMP 36.2; O2SAT 97
[2025-02-05 07:30] LABS: Basophils Absolute Auto 0.1 X10*3/uL (0.0-0.2); Basophils Percent Auto 0.5 % (0-2); Eosinophils Percent Auto 0.1 % (0-4); Hematocrit 38.7 % (37.0-47.0); Hemoglobin 12.5 g/dl (12.0-16.0); Imm Gran Pct Auto 1.1 % (0.0-0.4); Lymphocytes Absolute Auto 0.9 X10*3/uL (1.2-4.9); Lymphocytes Percent Auto 10.1 % (20-40); Mean Corpuscular HGB Conc 32.3 g/dl (31.0-35.0); Mean Corpuscular Hemoglobin 30.9 pg (27.0-33.0); Mean Corpuscular Volume 95.8 fL (80.0-98.0); Mean Platelet Volume 10.1 fL (9.4-12.3); Monocytes Absolute Auto 0.5 X10*3/uL (0.1-1.2); Monocytes Percent Auto 5.7 % (2-11); Neutrophils Absolute Auto 7.5 x10*3/uL (2.0-8.3); Neutrophils Percent Auto 82.5 % (45-73); Platelet Count 285 X10*3/uL (160-400); Red Blood Count 4.04 X10*6/uL (4.20-5.50); Red Cell Distribution Width 13.7 % (11.0-16.0); White Blood Count 9.1 X10*3/uL (4.8-10.8)
[2025-02-05] MEDS: hydroCHLOROthiazide 25 MG TABLET PO (07:37)
[2025-02-05] MEDS: methylPREDNISolone Sod Succ 40 MG/ML VIAL IVPUSH (07:37)
[2025-02-05] MEDS: Metoprolol Succinate ER 50 MG TAB.ER.24H PO (07:37)
[2025-02-05] MEDS: traMADoL HCL 50 MG TABLET PO (07:38)
[2025-02-05] MEDS: Famotidine 20 MG TABLET PO (07:38)
[2025-02-05] MEDS: Loratadine 10 MG TABLET PO (07:44)
[2025-02-05] MEDS: metroNIDAZOLE 250 MG TABLET PO (07:44)
[2025-02-05] MEDS: Budesonide DR 3 MG Capsule 6 MG PO (07:45)
--- NOTE | 2025-02-05 09:29 | MHC.CM.PN ---
Addendum entered by Brook Gil 02/05/25 10:43: Patient is medically cleared to discharge today. Home self care. She has arranged for her son to provide transportation home. Original Note: GARCÍA 02/05/25 Complaint: Sore throat + Ab pain DX COPD Exacerbation Patient's son lives with her. A HCP is on file. DME Cane/inside + Walker/outside DP Home self care. One of her sons will transport home.
--- NOTE | 2025-02-05 10:24 | P.DS_ITS ---
DS: Providers Provider Date of Service: 02/05/25 Date of admission: 02/04/25 15:43 Date of discharge: 02/05/25 Primary care physician: Nghia Jc MD DS: Diagnosis Discharge Diagnosis (1) COPD exacerbation: Status: Acute (2) Colitis: Status: Acute (3) Allergic reaction: Status: Acute DS: Summary Hospital Course Hospital Course: from initial hpi: 84 years old lady with PMH of COPD\Asthma, CKD, HLD, osteoporosis, irritable bowel syndrome, HTN, hx bilateral parotid tumors s/p resection, hx breast cancer, hx thyroid cancer presenting to ED with throat swelling. The patient was discharted on LEvaquin and Flagyl from ED yesterday for reported Diverticulitis. received the medicaitons in hospital prior to discharge with no reported issues. She took medicaitons last night at home and had this worsening feeling of swelling in neck and throat closing associated with wheezing and SOB this morning. no skin rash or hives. No chest pain, palpitations, SOB, nausea, vomiting, diarrhea or urinary symptoms, no fever or chills. Abdominal pain improved and she had bowel movement. In ED recieved steroids IV , Benadryl, Ceftriaxone and Azitrhomycin along with nebulizers with fair response. admit for further monitoring. hospital course: Patient was admitted for throat swelling/tonsillitis due to possible allergic reaction versus infection. Was treated with steroids, antihistamines and symptoms significantly improved. For recent colitis/diverticulitis was continued on ceftriaxone and Flagyl on discharge will continue 5 more days of Ceftin. For COPD with acute decompensation was started on IV steroids and we will continue 5 more days of prednisone. Also given nebulizers. Patient is feeling better will be discharged home. She should follow up with ENT. Time Attestation Discharge Coordination Time (in mins): 32 Quality: Safe Use of Opioids Does Pt have an Active Cancer Diagnosis on the Problem List?: No Quality: Stroke Does the patient have a stroke diagnosis?: No Physical Exam Vital Signs: Vital Signs: Last Vital Signs Temp 97.1 F 02/05/25 07:25 Pulse 72 02/05/25 07:25 Resp 16 02/05/25 07:25 BP 145/67 H 02/05/25 07:25 Pulse Ox 97 02/05/25 07:25 O2 Del Method Room Air 02/05/25 07:25 BMI result Body Mass Index 39.3 General: AO X 3, no acute distress Resp: CTA bilateral, no accessory muscles used CVS: S1,S2,RRR GI: soft, non tender, non distended Neuro: motor grossly intact, alert Psych: appropriate affect, appropriate insight DS: Data Data Completed and Pending Labs on day of discharge: Laboratory Results - last 24 hr 02/04/25 02/04/25 02/04/25 10:42 10:44 14:10 WBC 9.1 RBC 4.23 Hgb 13.1 Hct 40.6 MCV 96.0 MCH 31.0 MCHC 32.3 RDW 13.8 Plt Count 284 MPV 9.7 Immature Gran % (Auto) 1.3 H Neut % (Auto) 71.9 Lymph % (Auto) 13.2 L [place] % (Auto) 8.3 Eos % (Auto) 4.5 H Baso % (Auto) 0.8 Lymph # (Auto) 1.2 [place] # (Auto) 0.8 Eos # (Auto) 0.4 Baso # (Auto) 0.1 Abs Immat Gran (auto) 0.12 H Absolute Neuts (auto) 6.5 Absolute Nucleated RBC 0.000 Nucleated RBC % (auto) 0.0 ESR 49 H Sodium 138 Potassium 4.1 Chloride 104 Carbon Dioxide 25 Anion Gap 13 BUN 13 Creatinine 1.29 Estim Creat Clear Calc 31.5 Estimated GFR 39 Random Glucose 86 Lactic Acid 1.7 Calcium 10.0 Magnesium 1.9 Total Bilirubin 1.0 AST 25 ALT 16 Alkaline Phosphatase 87 C-Reactive Protein 1.81 H B-Natriuretic Peptide 148 H Total Protein 7.2 Albumin 3.7 Influenza Type A (PCR) NEGATIVE Influenza Type B (PCR) NEGATIVE RSV RNA Qual (PCR) NEGATIVE SARS-CoV-2 RNA (RT-PCR) NEGATIVE S. pyogenes GrpA ABISAI Negative 02/05/25 05:45 WBC 9.1 RBC 4.04 L Hgb 12.5 Hct 38.7 MCV 95.8 MCH 30.9 MCHC 32.3 RDW 13.7 Plt Count 285 MPV 10.1 Immature Gran % (Auto) 1.1 H Neut % (Auto) 82.5 H Lymph % (Auto) 10.1 L [place] % (Auto) 5.7 Eos % (Auto) 0.1 Baso % (Auto) 0.5 Lymph # (Auto) 0.9 L [place] # (Auto) 0.5 Eos # (Auto) 0.0 Baso # (Auto) 0.1 Abs Immat Gran (auto) 0.10 H Absolute Neuts (auto) 7.5 Absolute Nucleated RBC 0.000 Nucleated RBC % (auto) 0.0 ESR Sodium 140 Potassium 4.5 Chloride 104 Carbon Dioxide 25 Anion Gap 16 BUN 20 H Creatinine 1.53 H Estim Creat Clear Calc 26.4 Estimated GFR 32 Random Glucose 106 Lactic Acid Calcium 10.1 Magnesium Total Bilirubin AST ALT Alkaline Phosphatase C-Reactive Protein B-Natriuretic Peptide Total Protein Albumin Influenza Type A (PCR) Influenza Type B (PCR) RSV RNA Qual (PCR) SARS-CoV-2 RNA (RT-PCR) S. pyogenes GrpA ABISAI Discharge Plan Discharge Anticipated Discharge Date/Time: 02/05/25 10:21 Patient Disposition: Home, Self-Care Discharge Diagnosis: copd, allergy vs infection Referrals: Nghia Jc MD [Primary Care Provider] - 1 Week Discharge Medications: New cefuroxime axetil 500 mg tablet 500 mg PO BID Qty: 10 0RF prednisone 20 mg tablet 40 mg PO DAILY Qty: 10 0RF Continued ipratropium-albuterol 0.5 mg-3 mg(2.5 mg base)/3 mL solution for nebulization 3 ml inhalation Q6H PRN (Reason: wheezing/COPD) 30 Days Qty: 360 11RF albuterol sulfate 90 mcg/actuation HFA aerosol inhaler 2 puff inhalation Q6H PRN (Reason: Shortness Of Breath Or Wheezing) Qty: 1 3RF tramadol 50 mg tablet 50 mg PO BID Qty: 60 0RF budesonide 3 mg capsule,delayed,extend.release 6 mg PO DAILY metoprolol succinate 50 mg tablet extended release 24 hr 50 mg PO DAILY hydrochlorothiazide 25 mg tablet 25 mg PO DAILY levothyroxine 50 mcg tablet 50 mcg PO DAILY@0600 albuterol sulfate 2.5 mg /3 mL (0.083 %) solution for nebulization 2.5 mg inhalation Q4H PRN (Reason: for wheezing) rabeprazole [AcipHex] 20 mg tablet,delayed release (DR/EC) 20 mg PO DAILY Qty: 90 3RF lorazepam [Ativan] 0.5 mg tablet 0.5 mg PO BEDTIME PRN (Reason: anxiety/INSOMNIA) 30 Days Qty: 30 2RF ondansetron HCl 4 mg tablet 4 mg PO DAILY PRN (Reason: Nausea And Vomiting) oxycodone 5 mg tablet 5 mg PO QID PRN (Reason: Pain) Qty: 120 0RF Discharge Orders: Discharge Order (Routine); Ordered 02/05/25 Ordered By: Cedrick Peguero Diet: Advance to usual diet Activity on Discharge: As tolerated Stand Alone Forms: Patient Portal Discharge page Print Language: [place] Island[place] Care Plan Goals: recovery Health Concerns: tonsilitis, diverticulitis, copd Plan of Treatment: 5 days ceftin and prednisone follow up with ENT Assessment: see above
[2025-02-05 11:26] VITALS: BP 112/53; PULSE 76; RESP 16; TEMP 36.2; O2SAT 96
== END 2025-02-05 11:58 | disposition home or self-care (01) ==
LOC: HO.ED 14:10 → HO.EDOVER 16:25 → HO.S3 23:34
PROVIDERS: Physician Assistant; Physician Assistant Medical; Admitting Provider Student in an Organized Health Care Education/Training Program; Emergency Provider Emergency Medicine; PCP Internal Medicine; Visit Provider Internal Medicine
DX: J44.1 Chronic obstructive pulmonary disease with (acute) exacerbation (principal); K12.2 Cellulitis and abscess of mouth; I12.9 Hypertensive chronic kidney disease with stage 1 through stage 4 chronic kidney disease, or unspecified chronic kidney disease; N18.9 Chronic kidney disease, unspecified; R06.02 Shortness of breath; K52.9 Noninfective gastroenteritis and colitis, unspecified; K59.00 Constipation, unspecified; K57.92 Diverticulitis of intestine, part unspecified, without perforation or abscess without bleeding; R13.10 Dysphagia, unspecified; Z03.818 Encounter for observation for suspected exposure to other biological agents ruled out; Z79.899 Other long term (current) drug therapy
CPT/HCPCS: 0241U; 36415; 70491; 71045; 80048; 80053; 83605; 83735; 83880; 85025; 85652; 86140; 87040; 87651; 93005; 94640; 96365; 96366; 96375; 99221; 99285; J0456; J0696; J1100; J1200; J2270; J2405; J2919; Q9967

== ENCOUNTER → 2025-02-04 11:36 | Outpatient (BNV) | payer MEDICARE, SELFPAY | PROVIDERS: Emergency Provider Emergency Medicine; PCP Internal Medicine; Visit Provider Radiology Diagnostic Radiology | DX: R13.10 Dysphagia, unspecified (principal); K12.2 Cellulitis and abscess of mouth; R06.2 Wheezing | CPT/HCPCS: 70491; 71045 ==

== ENCOUNTER → 2025-02-04 15:43 | Outpatient (BNV) | payer MEDICARE, SELFPAY | PROVIDERS: Admitting Provider Student in an Organized Health Care Education/Training Program; Emergency Provider Emergency Medicine; PCP Internal Medicine; Visit Provider Student in an Organized Health Care Education/Training Program | DX: J44.1 Chronic obstructive pulmonary disease with (acute) exacerbation (principal); K52.9 Noninfective gastroenteritis and colitis, unspecified; T78.40XA Allergy, unspecified, initial encounter | CPT/HCPCS: 99222; 99239 ==

== ENCOUNTER 2025-02-17 10:27 | Outpatient (AMB) | payer MEDICARE, SELFPAY ==
--- NOTE | 2025-02-17 10:25 | A.OFFPC_ITS ---
Vital Signs 02/17/25 10:29 Height 4 ft 11 in Weight 87.997 kg BMI 39.2 BP 122/78 Respiration 20 Pulse 64 Pulse Source Pulse Oximeter Temp 97.4 F Temp Source Temporal Artery Scan Pulse Oximetry (%) 98 Oxygen Delivery Method Room Air Intake Visit Reasons: ED F/U Patient Safety Coordinator Required: No Accompanied by: Self / Same As Patient Allergies gabapentin Allergy (Severe, Verified 02/17/25 10:30) severe urinary incont. codeine [CODEINE] Allergy (Intermediate, Verified 02/17/25 10:30) Rash fish derived [FISH] Allergy (Intermediate, Verified 02/17/25 10:30) HIVES Iodinated Contrast Media [IV Dye, Iodine Containing] Allergy (Intermediate, Verified 02/17/25 10:30) HIVES nitrofurantoin [Nitrofurantoin] Allergy (Intermediate, Verified 02/17/25 10:30) HIVES Sulfa (Sulfonamide Antibiotics) [SULFA (SULFONAMIDE ANTIBIOTICS)] Allergy (Intermediate, Verified 02/17/25 10:30) RASH valsartan [From DIOVAN] Allergy (Intermediate, Verified 02/17/25 10:30) HIVES vancomycin [VANCOMYCIN] Allergy (Intermediate, Verified 02/17/25 10:30) RASH Penicillins [PENICILLINS] Allergy (Mild, Verified 02/17/25 10:30) RASH adhesive [ADHESIVE] Allergy (Unknown, Verified 02/17/25 10:30) UNKNOWN hydrocodone [Vicodin] Allergy (Unknown, Verified 02/17/25 10:30) Unknown ibuprofen [IBUPROFEN] Adverse Reaction (Unknown, Verified 02/17/25 10:30) UNKNOWN Tobacco use date assessed: 12/25/24 Dental Screening Dental Screen Date: 12/25/24 HPI HPI Comments History of Present Illness Details 84-year-old female with history of asthm a-COPD overlap, hypertension, breast cancer among others presents to the office today for hospital discharge follow- up. She initially had presented to [facility] ED on 02/03 with reports of severe constipation. CT of the abdomen/pelvis at that time showed questionable superimposed uncomplicated diverticulitis of the sigmoid colon as well as sub segmental wall thickening of the transverse colon suggestive of acute versus subacute inflammatory process such as colitis. She was discharged with stool softeners, ondansetron, Levaquin, and Flagyl. The following day, she returned to the ED as she began experiencing wheezing, difficulty breathing, and throat swelling. Soft tissue neck CT with relevant findings of inflammatory versus infectious processes versus autoimmune disorders of the submandibular glands as well as inflammatory versus infectious process of the lingual tonsils. She was subsequently received IV steroids, Benadryl, ceftriaxone and azithromycin as well as scheduled nebulizers with fair response and was admitted for further management. She was treated with ongoing steroids, antihistamines with significant improvement in symptoms. For the colitis/diverticulitis she was diagnosed with on the day prior to arrival she was given ceftriaxone and Flagyl and discharged on 5 more days of Ceftin. She was also continued on 5 additional days of prednisone. Despite this, the patient has continued with significant wheezing, dyspnea on exertion, and shortness of breath at rest. She has been using her nebulizers 3 times a daily with limited response. No cough, fevers, chills. She also tells me that she has also been experiencing nausea but no vomiting. She tells me that she has been using ?laxatives?. Appears she has been double dosing docusate as well as senna. She is now moving her bowels regularly but she reports fecal urgency. No ongoing abdominal pain. ROS: General: No fevers, malaise, unintentional weight loss HEENT: No blurred vision, diplopia. No sore throat, nasal congestion, rhinorrhea, sinus pain, ear pain Cardiovascular: No chest pain, palpitations, or leg edema Respiratory: +sob, +RUSSO, +wheezing. no cough GI: +nausea, ugency. No abdominal pain, vomiting, diarrhea, constipation MSK: +chronic diffuse pain Neuro: No headaches, weakness, paresthesias Skin: No rashes or lesions EXAM: Constitutional - Awake and Alert, No apparent distress Eyes - PERRLA, EOMI ENT- airway patent with mild erythema, but no tonsillar edema/exudate Cardiovascular - S1S2, RRR, No edema Respiratory - Normal lung expansion, increased WOB, mild respiratory distress, audible wheezing, diminished lung sounds Gastrointestinal - NT / ND; +BS; No rebound or guarding Extremities - no calf tenderness bilaterally, no swelling Skin - Warm/Dry Neurological - Alert & oriented x3 Psychological - Appropriate affect [facility] Medical History Acute anxiety Neuropathy of left ulnar nerve at wrist Compression fracture of C1 vertebra 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 difficile colitis Breast cancer Surgical History History of esophagogastroduodenoscopy (EGD) H/O colonoscopy H/O lymph node biopsy Hx of cataract surgery History of tonsillectomy and adenoidectomy H/O hysterectomy for benign disease History of total bilateral knee replacement H/O kyphoplasty Family History Father No problems noted. Mother Breast cancer Sister Breast cancer Social History Household Members: Children Housing: House Are you a primary career guidance technician to a significant other at home: No Do you presently have visiting nurse or other home services: No Alcohol intake: never Patient Tobacco Use Status: Former Tobacco user Substance Use Type: Marijuana Advance Directives Date on File: 02/05/25 service: No Current occupational status: retired Cognitive needs: No Hearing needs: No Vision needs: Yes (rx glasses) Questionnaire Thrive Questionnaire Date Thrive assessed: 02/05/25 ALLI-7 AMB Questionnaire ALLI-7 Date ALLI - 7 assessed: 12/25/24 Source: Developed by Drs. Julian Martinez, Daya Jose, Jossue Izaguirre and colleagues, with an educational venkatesh from [facility]. Physical exam (Primary Care) Vital Signs: Last Vital Signs Temp 97.4 F 02/17/25 10:29 Pulse 64 02/17/25 10:29 Resp 20 02/17/25 10:29 BP 122/78 02/17/25 10:29 Pulse Ox 98 02/17/25 10:29 Oxygen Delivery Method Room Air 02/17/25 10:29 BMI result Body Mass Index 39.2 Tobacco/Smoking Status: Tobacco use Status Tobacco use date assessed 12/25/24 02/17/25 10:33 Patient Tobacco Use Status Former Tobacco user 02/17/25 10:33 Thrive Assessment: Date of Thrive Assessment Date Thrive assessed 02/05/25 02/17/25 10:33 Coding Level of Care Code Est Pt Level 5 (86227) Diagnoses Wheezing R06.2 Hypertension I10 High cholesterol E78.00 Asthma-COPD overlap syndrome J44.9 Assessment & Plan Assessment & Plan (1) Wheezing: Code(s): R06.2 - Wheezing Category: Medical Plan: With associated increased work of breathing. There is no hypoxia. Given her distress, she is recommended to present to the ED for further evaluation and management. She is initially refusing transfer, but is educated on risk of respiratory failure or even and is agreeable. Patient is wheeled across the street to [facility] ED. expect call is placed to ED provider. Vital signs are stable. No fevers or hypoxia. (2) Hypertension: Code(s): I10 - Essential (primary) hypertension Category: Medical Plan: Controlled BP 122/78. Continue home medications (3) High cholesterol: Code(s): E78.00 - Pure hypercholesterolemia, unspecified Category: Medical (4) Asthma-COPD overlap syndrome: Comment: PATIENT DOES HAVE MODERATELY ADVANCED ASTHMA COPD SYNDROME, IT HAS BEEN STABLE AND CONTROLLED WITH HER CURRENT REGIMEN. THE FEELING OF CHEST CONGESTION AND INCREASED SHORTNESS OF BREATH, WAS MAINLY RELATED BY ANXIETY ESPECIALLY AT NIGHT. THAT HAS MUCH IMPROVED , AND ALSO SIMPLIFICATION OF HER MEDICAL REGIMEN HAS HELPED. Code(s): J44.9 - Chronic obstructive pulmonary disease, unspecified Category: Medical Plan: Uncontrolled with audible wheezing. Sent to the ER for further evaluation. Plan Presents to the ED for further evaluation.
[2025-02-17 10:29] VITALS: BP 122/78; PULSE 64; RESP 20; TEMP 36.3; O2SAT 98; BMI 39.2
--- OUTSIDE RECORDS SUMMARY | 2025-02-17 11:32 | XMS_ITS | Clinical Summary ---
Author Organization [facility] Address [address] [place] [address] Phone Care Team Providers Care Relief Pharmacist Name Role Phone John Thao MD Primary Care Provider [phone] Allergies Active Allergy Reactions Criticality Noted Date [...] [facility] Medicaid [place] Care Teams Relief Pharmacist Relationship Specialty Start Date End Date John Thao MD [address] [place] [address] [address] [place], [place] PCP - General 09/28/20
== END 2025-02-17 11:43 | disposition home or self-care (01) ==
LOC: HO.HMCHD 10:28
PROVIDERS: PCP Internal Medicine; Visit Provider Physician Assistant
DX: R06.2 Wheezing (principal); I10 Essential (primary) hypertension; E78.00 Pure hypercholesterolemia, unspecified; J44.9 Chronic obstructive pulmonary disease, unspecified

== ENCOUNTER → 2025-02-17 10:27 | Outpatient (BNVA) | payer MEDICARE, SELFPAY | PROVIDERS: PCP Internal Medicine; Visit Provider Physician Assistant ==

== ENCOUNTER 2025-02-17 11:21 | Emergency (ER) | payer MEDICARE, SELFPAY ==
[2025-02-17] VITALS (7 sets, daily range): BP systolic 130–147; BP diastolic 64–77; PULSE 56–77; RESP 17–26; TEMP 36.2–36.7; O2SAT 94–99; BMI 39.0
--- NOTE | ~2025-02-17 | XR_ITS ---
EXAMINATION: XR CHEST CLINICAL INFORMATION: SOB COMPARISON: None available. TECHNIQUE: 2 views of the chest were obtained. FINDINGS: There is cardiac enlargement. Mediastinal and hilar contours appear normal. Aortic mural calcifications. Lungs are diffusely hyperaerated, with mildly flattened hemidiaphragms, although otherwise clear. No consolidation or effusion. No evidence of interstitial edema. There is no pneumothorax. Severe arthrosis right glenohumeral joint, possibly posttraumatic. There is a compression deformity in the midthoracic spine, chronic. There are spinal degenerative changes. XR/XR chest 2V IMPRESSION: 1. COPD. 2. Cardiomegaly. 3. No active superimposed disease. Electronically signed by: Michael Palm MD 02/17/2025 12:39 PM EDT
--- NOTE | 2025-02-17 11:23 | ED_ITS ---
HPI - SOB/Dyspnea General Chief Complaint: Dyspnea Stated Complaint: SOB Time Seen by Provider: 02/17/25 12:04 Source: patient, RN notes reviewed and old records reviewed Mode of arrival: ambulatory History of Present Illness ED Provider: Vanessa Muir PA-C HPI Narrative: 84 years old lady with PMH of COPD/Asthma, CKD, HLD, osteoporosis, irritable bowel syndrome, HTN, hx bilateral parotid tumors s/p resection, hx breast cancer, hx thyroid cancer presenting to ED c/o worsening SOB x this morning. Patient was sent in by PCPs office. Patient was recently discharged from our facility on 02/05/2025 for COPD exacerbation/allergic reaction and colitis. Denies cough, chest pain, pedal edema, abdominal pain, nausea, vomiting, travel Related Data Home Medications ?Medication ?Instructions ?Recorded ?Confirmed hydrochlorothiazide 25 mg tablet 25 mg PO DAILY 06/15/20 02/06/25 levothyroxine 50 mcg tablet 50 mcg PO DAILY@0600 06/15/20 02/06/25 metoprolol succinate 50 mg 50 mg PO DAILY 06/15/20 02/06/25 tablet,extended release 24 hr albuterol sulfate 2.5 mg/3 mL 2.5 mg inhalation Q4H PRN for 03/25/24 02/06/25 (0.083 %) solution for nebulization wheezing ondansetron HCl 4 mg tablet 4 mg PO DAILY PRN Nausea And 12/25/24 02/06/25 Vomiting Previous Rx's ?Medication ?Instructions ?Recorded rabeprazole 20 mg tablet,delayed 20 mg PO DAILY #90 tabs 06/26/24 release (AcipHex) lorazepam 0.5 mg tablet (Ativan) 0.5 mg PO BEDTIME PRN 11/28/24 anxiety/INSOMNIA 30 days #30 tabs ipratropium 0.5 mg-albuterol 3 mg 3 ml inhalation Q6H PRN 12/06/24 (2.5 mg base)/3 mL nebulization wheezing/COPD 30 days #360 mL soln albuterol sulfate 90 mcg/actuation 2 puff inhalation Q6H PRN 12/24/24 aerosol inhaler Shortness Of Breath Or Wheezing #1 ea tramadol 50 mg tablet 50 mg PO BID #60 tabs 02/05/25 oxycodone 5 mg tablet 5 mg PO QID PRN Pain #120 tabs 02/11/25 budesonide 3 mg 6 mg (2 x 3 mg) PO DAILY #30 ea 02/13/25 capsule,delayed,extended release prednisone 20 mg tablet 40 mg (2 x 20 mg) PO DAILY 5 days 02/17/25 #10 tabs Allergies Allergy/AdvReac Type Severity Reaction Status Date / Time gabapentin Allergy Severe severe Verified 02/17/25 11:25 urinary incont. codeine [CODEINE] Allergy Intermediate Rash Verified 02/17/25 11:25 fish derived [FISH] Allergy Intermediate HIVES Verified 02/17/25 11:25 Iodinated Contrast Media Allergy Intermediate HIVES Verified 02/17/25 11:25 [IV Dye, Iodine Containing] nitrofurantoin Allergy Intermediate HIVES Verified 02/17/25 11:25 [Nitrofurantoin] Sulfa (Sulfonamide Allergy Intermediate RASH Verified 02/17/25 11:25 Antibiotics) [SULFA (SULFONAMIDE ANTIBIOTICS)] valsartan [From DIOVAN] Allergy Intermediate HIVES Verified 02/17/25 11:25 vancomycin [VANCOMYCIN] Allergy Intermediate RASH Verified 02/17/25 11:25 Penicillins [PENICILLINS] Allergy Mild RASH Verified 02/17/25 11:25 adhesive [ADHESIVE] Allergy Unknown UNKNOWN Verified 02/17/25 11:25 hydrocodone [Vicodin] Allergy Unknown Unknown Verified 02/17/25 11:25 ibuprofen [IBUPROFEN] AdvReac Unknown UNKNOWN Verified 02/17/25 11:25 Review of Systems 2 Review of Systems: Yes all other systems are reviewed and are negative Constitutional: Constitutional: Reports as per [facility] Past Medical History Attestation statement: The following information was validated with the patient. 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 difficile colitis Breast cancer Surgical History History of esophagogastroduodenoscopy (EGD) H/O colonoscopy H/O lymph node biopsy Hx of cataract surgery History of tonsillectomy and adenoidectomy H/O hysterectomy for benign disease History of total bilateral knee replacement H/O kyphoplasty Family History Family History Father No problems noted. Mother Breast cancer Sister Breast cancer Social History Social History Household Members: Children Housing: House Are you a primary anesthesiologist and critical care to a significant other at home: No Do you presently have visiting nurse or other home services: No Alcohol intake: never Patient Tobacco Use Status: Former Tobacco user Substance Use Type: Marijuana Advance Directives: Yes Advance Directives on File: Yes Advance Directives Date on File: 02/05/25 Do you have a plan to hurt others: No Plan service: No Current occupational status: retired Cognitive needs: No Hearing needs: No Vision needs: Yes (rx glasses) Physical Exam 2 Vital Signs: Vital Signs: Last Vital Signs Temp 98.1 F 02/17/25 16:37 Pulse 77 02/17/25 16:37 Resp 26 H 02/17/25 16:37 BP 147/77 H 02/17/25 16:37 Pulse Ox 97 02/17/25 16:37 O2 Del Method Room Air 02/17/25 16:37 BMI result Body Mass Index 39.0 Const: General: cooperative, healthy appearing and no acute distress O rientation/consciousness: patient oriented x3 Limitations: no limitations HEENT: Head: Yes normal to inspection and Yes atraumatic Ears: hearing grossly normal bilaterally General nose exam: Normal external nose present Face and sinus: Yes normal facial exam Eyes: General: appearance normal, both eyes and all related structures EOM: EOMs intact bilaterally Neck: Neck: Yes normal visual inspection and Yes no meningeal signs Resp: Effort & Inspection: labored, no respiratory distress, no stridor and tachypneic Auscultation: wheezes expiratory wheezes and inspiratory wheezes and diminished lung sounds diffuse Cardio: Rate: regular rate Heart sounds: S1 normal heart sound present and S2 normal heart sound present GI: Inspection: Yes normal to inspection Palpation (GI): Soft to palpation, nontender, no guarding and not rigid Skin: Rashes: no rashes Wounds: no wounds Neuro: General: patient oriented x3, tone normal and no meningeal signs C ranial nerves: Yes CN's II-XII intact bilaterally Gait exam (Neuro): Normal gait present Extrem: General: Yes normal to inspection and Yes no pedal edema Course Course Course Narrative: This is an RME: Additional HPI, ROS, PE not included below will be deferred to primary provider. RME assessment and note performed by: Ml Brown PA-C This is a 84 y/o F, with hx of PMH of COPD\Asthma, CKD, HLD, osteoporosis, irritable bowel syndrome, HTN, hx bilateral parotid tumors s/p resection, hx breast cancer, hx thyroid cancer presenting to ED with concerns for SOB since this morning. Pt sent in as an expect from PCP's office. Increased OSB this AM. audible wheezes and increased work of breathing. Tight, inspiratory and expiratory wheezes throughout all lung cyr. 2 word sentences Recently admitted to the ED on 02/04 due to ?allergic reaction to levaquin and flagyl for diverticulitis flare and COPD exacerbation. Pt to be brought back to the main ED for further eval. Plan: Labs, EKG, CXR, viral swabs, further ER eval needed -1430-- leukocytosis of 13.8 > likely from recent steroid use rather than severe sepsis. Renal function at patient's baseline. troponin negative. BNP 224 XR chest 2V IMPRESSION: 1. COPD. 2. Cardiomegaly. 3. No active superimposed disease. > 1623- on re-evaluation after multiple DuoNebs and IV Solu-Medrol patient reports symptomatic improvement. Lungs now CTA. Also ambulated patient with pulse ox and maintain saturation of 96% or greater on room air. Would like to be discharged home at this time. Plan to discharge home with p.o. prednisone and close PCP follow up. Patient comfortable with plan Results discussed with patient including worrisome signs and symptoms and strict return precautions, and when to return to the emergency department. They verbalized understanding and feel safe for discharge at this time. Medications Administered Discontinued Medications Generic Name Dose Route Start Last Admin Trade Name Freq PRN Reason Stop Dose Admin Albuterol Sulfate 5 mg/ 0 mg 02/17/25 11:54 02/17/25 12:06 Albuterol/Ipratropium 3 ml INHALE 02/17/25 11:55 1 each ONCE ONE Administration Albuterol Sulfate 2.5 mg/ 0 mg 02/17/25 15:56 02/17/25 15:58 Albuterol/Ipratropium 3 ml INHALE 02/17/25 15:57 1 dose ONCE ONE Administration Lidocaine/Diphenhydr/Alum/Mg/Simeth 10 ml 02/17/25 15:04 02/17/25 15:16 Mag&Al/Sim/Diphenhyd/Lidocaine 10 Ml Oral.Susp PO 02/17/25 15:05 10 ml ONCE ONE Administration Protocol Methylprednisolone Sodium Succinate 60 mg 02/17/25 12:23 02/17/25 12:42 Methylprednisolone Sod Succ 125 Mg Vial IVPUSH 02/17/25 12:24 60 mg ONCE ONE Administration Oxycodone HCl 5 mg 02/17/25 12:45 02/17/25 12:49 Oxycodone Hcl Immed Release 5 Mg Tablet PO 02/17/25 12:46 5 mg ONCE ONE Administration Medical Decision Making Medical Decision Making MDM Narrative: 84 years old lady with PMH of COPD/Asthma, CKD, HLD, osteoporosis, irritable bowel syndrome, HTN, hx bilateral parotid tumors s/p resection, hx breast cancer, hx thyroid cancer presenting to ED c/o worsening SOB x this morning. on exam tachypneic, talking in short sentences, diffuse inspiratory and expiratory wheezes appreciated with diminished lung sounds throughout. No appreciable pedal edema. Concern for COPD exacerbation. Rule out viral illness and pneumonia. Lower suspicion for acute CHF or ACS Plan: EKG, labs, CXR, viral testing, ED bronch protocol, IV Solu-Medrol, +/- admission Please refer to course for remaining clinical decision making, interpretation of labs/imaging results, and discussions with consultants and/or family members. Differential Diagnosis Differential Diagnoses: The differential diagnosis associated with the presentation includes As above Admission/Observation Consideration of admission/observation: Escalation of care including admission/observation considered Lab Data [facility] Lab Attestation statement: I reviewed the patient's lab results. 02/17/25 11:47 02/17/25 11:47 Labs: Lab Results 02/17/25 Range/Units 11:47 WBC 13.8 H (4.8-10.8) X10*3/uL RBC 4.44 (4.20-5.50) X10*6/uL Hgb 13.9 (12.0-16.0) g/dl Hct 42.2 (37.0-47.0) % MCV 95.0 (80.0-98.0) fL MCH 31.3 (27.0-33.0) pg MCHC 32.9 (31.0-35.0) g/dl RDW 13.5 (11.0-16.0) % Plt Count 295 (160-400) X10*3/uL MPV 9.8 (9.4-12.3) fL Immature Gran % (Auto) 1.2 H (0.0-0.4) % Neut % (Auto) 76.2 H (45-73) % Lymph % (Auto) 13.2 L (20-40) % [place] % (Auto) 6.7 (2-11) % Eos % (Auto) 2.1 (0-4) % Baso % (Auto) 0.6 (0-2) % Lymph # (Auto) 1.8 (1.2-4.9) X10*3/uL [place] # (Auto) 0.9 (0.1-1.2) X10*3/uL Eos # (Auto) 0.3 (0.0-0.4) X10*3/uL Baso # (Auto) 0.1 (0.0-0.2) X10*3/uL Abs Immat Gran (auto) 0.16 H (0.00-0.03) X10*3/uL Absolute Neuts (auto) 10.5 H (2.0-8.3) x10*3/uL Absolute Nucleated RBC 0.000 (0.0-0.012) X10*3/uL Nucleated RBC % (auto) 0.0 (0.0-0.2) /100WBC Sodium 140 (135-145) mmol/L Potassium 4.1 (3.3-5.1) mmol/L Chloride 103 (96-108) mmol/L Carbon Dioxide 28 (22-29) mmol/L Anion Gap 13 (12-20) BUN 28 H (9-16) mg/dL Creatinine 1.44 H (0.5-1.4) mg/dL Estim Creat Clear Calc 28.0 Estimated GFR 35 Random Glucose 92 (60-115) mg/dL Calcium 10.2 (8.4-10.2) mg/dL Magnesium 1.7 (1.6-2.6) mg/dL Total Bilirubin 1.0 (0.0-1.0) mg/dL Direct Bilirubin 0.4 (0.0-0.5) mg/dL AST 19 (5-31) U/L ALT 15 (0-31) U/L Alkaline Phosphatase 80 (39-117) U/L Troponin I High Sens < 2.7 D (<3.5-17.0) ng/L B-Natriuretic Peptide 224 H (<100) pg/mL Total Protein 7.3 (6.5-8.0) g/dL Albumin 3.9 (3.5-5.0) g/dL Influenza Type A (PCR) NEGATIVE (Negative) Influenza Type B (PCR) NEGATIVE (Negative) RSV RNA Qual (PCR) NEGATIVE (Negative) SARS-CoV-2 RNA (RT-PCR) NEGATIVE (Negative) Independent Interpretation I performed an independent interpretation of an: EKG and Plain X-Ray Radiology Impression Discussion of test interpretation with radiology: I have reviewed the radiologist's reading. External Record Review External record reviewed: Inpatient record, Office record, Outpatient record, Prior outpatient labs, Prior outpatient radiology, Primary care record and Outside ED record Tests considered The following testing was considered but not selected: As above Prescription Management I considered prescription management with: Other Chronic Conditions Patient?s care impacted by: Other ( COPD) Social Determinants Patient?s care significantly limited by Social Determinants of Health including: Other Social Determinant of Health Critical Care Time Critical Care Time Critical Care Time: Yes Total Critical Care Time: 45 Attestation: I have personally provided critical care time exclusive of time spent on separately billable procedures. Time includes review of lab data, radiology results, discussion with consultants, and monitoring for potential decompensation. Intervention performed as documented. Discharge Plan Discharge Clinical Impression: COPD exacerbation Patient Disposition: Home, Self-Care Instructions: COPD (Chronic Obstructive Pulmonary Disease) (DC) Additional Instructions: your blood work and chest x-ray are reassuring You tested negative for COVID, flu, RSV Continue to use your neb machine and inhalers at home In addition take prednisone as prescribed until completion If her symptoms persist or worsen you have constant worsening chest pain, shortness of breath, fever, swelling in your legs return to the emergency department Prescriptions: New prednisone 20 mg tablet 40 mg PO DAILY 5 Days Qty: 10 0RF No Action ipratropium-albuterol 0.5 mg-3 mg(2.5 mg base)/3 mL solution for nebulization 3 ml inhalation Q6H PRN (Reason: wheezing/COPD) 30 Days Qty: 360 11RF albuterol sulfate 90 mcg/actuation HFA aerosol inhaler 2 puff inhalation Q6H PRN (Reason: Shortness Of Breath Or Wheezing) Qty: 1 3RF tramadol 50 mg tablet 50 mg PO BID Qty: 60 0RF oxycodone 5 mg tablet 5 mg PO QID PRN (Reason: Pain) Qty: 120 0RF budesonide 3 mg capsule,delayed,extend.release 6 mg PO DAILY Qty: 30 6RF metoprolol succinate 50 mg tablet extended release 24 hr 50 mg PO DAILY hydrochlorothiazide 25 mg tablet 25 mg PO DAILY levothyroxine 50 mcg tablet 50 mcg PO DAILY@0600 albuterol sulfate 2.5 mg /3 mL (0.083 %) solution for nebulization 2.5 mg inhalation Q4H PRN (Reason: for wheezing) rabeprazole [AcipHex] 20 mg tablet,delayed release (DR/EC) 20 mg PO DAILY Qty: 90 3RF lorazepam [Ativan] 0.5 mg tablet 0.5 mg PO BEDTIME PRN (Reason: anxiety/INSOMNIA) 30 Days Qty: 30 2RF ondansetron HCl 4 mg tablet 4 mg PO DAILY PRN (Reason: Nausea And Vomiting) Referrals: Physician,Unknown J [Primary Care Provider] - 5 days Interventions: ED Discharge Assessment Last Done: 02/17/25 16:37 Discharge Date/Time: 02/17/25 16:38 Print Language: Austrian
--- NOTE | 2025-02-17 11:26 | ECG_ITS ---
Test Reason : SOB Blood Pressure : */* mmHG Vent. 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 rate has decreased by 31 bpm QT has shortened Referred By: Ml Brown Electronically Signed By: BREE PAIGE
[2025-02-17 11:55] LABS: MANUAL DIFF FLAG NO
[2025-02-17 11:57] LABS: Basophils Absolute Auto 0.1 X10*3/uL (0.0-0.2); Basophils Percent Auto 0.6 % (0-2); Eosinophils Absolute Auto 0.3 X10*3/uL (0.0-0.4); Eosinophils Percent Auto 2.1 % (0-4); Hematocrit 42.2 % (37.0-47.0); Hemoglobin 13.9 g/dl (12.0-16.0); Imm Gran Abs Auto 0.16 X10*3/uL (0.00-0.03); Imm Gran Pct Auto 1.2 % (0.0-0.4); Lymphocytes Absolute Auto 1.8 X10*3/uL (1.2-4.9); Lymphocytes Percent Auto 13.2 % (20-40); Mean Corpuscular HGB Conc 32.9 g/dl (31.0-35.0); Mean Corpuscular Hemoglobin 31.3 pg (27.0-33.0); Mean Platelet Volume 9.8 fL (9.4-12.3); Monocytes Absolute Auto 0.9 X10*3/uL (0.1-1.2); Monocytes Percent Auto 6.7 % (2-11); Neutrophils Absolute Auto 10.5 x10*3/uL (2.0-8.3); Neutrophils Percent Auto 76.2 % (45-73); Platelet Count 295 X10*3/uL (160-400); Red Blood Count 4.44 X10*6/uL (4.20-5.50); Red Cell Distribution Width 13.5 % (11.0-16.0); White Blood Count 13.8 X10*3/uL (4.8-10.8)
[2025-02-17] MEDS: Albuterol Sulfate 5 MG, Albuterol/Iprat 2.5/0.5MG 3 ML 3 ML INHALE (12:06)
[2025-02-17 12:11] LABS: Alanine Aminotransferase 15 U/L (0-31); Albumin Level 3.9 g/dL (3.5-5.0); Alkaline Phosphatase 80 U/L (39-117); Anion Gap 13 (12-20); Aspartate Amino Transferase 19 U/L (5-31); Bilirubin Direct 0.4 mg/dL (0.0-0.5); Blood Urea Nitrogen 28 mg/dL (9-16); Calcium 10.2 mg/dL (8.4-10.2); Carbon Dioxide 28 mmol/L (22-29); Chloride 103 mmol/L (96-108); Estimated Glomerular Filt Rate 35; Glucose Random 92 mg/dL (60-115); Magnesium 1.7 mg/dL (1.6-2.6); Potassium 4.1 mmol/L (3.3-5.1); Sodium 140 mmol/L (135-145); Total Protein 7.3 g/dL (6.5-8.0)
[2025-02-17 12:15] LABS: B Type Natriuretic Peptide 224 pg/mL (<100)
[2025-02-17 12:31] LABS: Troponin-I High Sensitivity < 2.7 ng/L (<3.5-17.0)
[2025-02-17 12:34] LABS: Influenza A PCR NEGATIVE (Negative); Influenza B PCR NEGATIVE (Negative); Resp Syncy Virus RNA Qual PCR NEGATIVE (Negative); SARS COV2 PCR INHOUSE NEGATIVE (Negative)
[2025-02-17] MEDS: oxyCODONE HCl Immed Release 5 MG TABLET PO (12:49)
--- NOTE | 2025-02-17 14:16 | PC.NURSE ---
patient reports improvements in symptoms. work of breathing has greatly improved, able to speak in full clear sentences at this time.
[2025-02-17] MEDS: Mag&Al/Sim/Diphenhyd/Lidocaine 10 ML ORAL.SUSP PO (15:16)
[2025-02-17] MEDS: Albuterol Sulfate 2.5 MG, Albuterol/Iprat 2.5/0.5MG 3 ML 3 ML INHALE (15:58)
== END 2025-02-17 16:38 | disposition home or self-care (01) ==
PROVIDERS: Physician Assistant Medical; Emergency Provider Emergency Medicine Emergency Medical Services
DX: J44.1 Chronic obstructive pulmonary disease with (acute) exacerbation (principal); R06.02 Shortness of breath; Z03.818 Encounter for observation for suspected exposure to other biological agents ruled out; Z79.899 Other long term (current) drug therapy
CPT/HCPCS: 0241U; 36415; 71046; 80048; 80076; 83735; 83880; 84484; 85025; 93005; 94640; 96374; 99212; 99284; 99285; J2919

== ENCOUNTER → 2025-02-17 11:26 | Outpatient (BNV) | payer MEDICARE, SELFPAY | PROVIDERS: Emergency Provider Emergency Medicine Emergency Medical Services; Visit Provider Internal Medicine | DX: R00.1 Bradycardia, unspecified (principal); I25.2 Old myocardial infarction | CPT/HCPCS: 93010 ==

== ENCOUNTER → 2025-02-17 11:26 | Outpatient (BNV) | payer MEDICARE, SELFPAY | PROVIDERS: Visit Provider Radiology Diagnostic Radiology | DX: J44.9 Chronic obstructive pulmonary disease, unspecified (principal) | CPT/HCPCS: 71046 ==

== ENCOUNTER 2025-02-24 12:58 | Outpatient (AMB) | payer MEDICARE, SELFPAY ==
--- NOTE | 2025-02-24 13:01 | MHC.PC.OV ---
Vital Signs 02/24/25 13:05 Height 4 ft 11 in Weight 88.451 kg BMI 39.4 BP 130/70 Respiration 20 Pulse 64 Pulse Source Pulse Oximeter Temp 98.0 F Temp Source Temporal Artery Scan Pulse Oximetry (%) 98 Oxygen Delivery Method Room Air Intake Visit Reasons: ED F/U [employer] Field Technician Required: No Accompanied by: Self / Same As Patient Allergies gabapentin Allergy (Severe, Verified 02/24/25 13:02) severe urinary incont. codeine [CODEINE] Allergy (Intermediate, Verified 02/24/25 13:02) Rash fish derived [FISH] Allergy (Intermediate, Verified 02/24/25 13:02) HIVES Iodinated Contrast Media [IV Dye, Iodine Containing] Allergy (Intermediate, Verified 02/24/25 13:02) HIVES nitrofurantoin [Nitrofurantoin] Allergy (Intermediate, Verified 02/24/25 13:02) HIVES Sulfa (Sulfonamide Antibiotics) [SULFA (SULFONAMIDE ANTIBIOTICS)] Allergy (Intermediate, Verified 02/24/25 13:02) RASH valsartan [From DIOVAN] Allergy (Intermediate, Verified 02/24/25 13:02) HIVES vancomycin [VANCOMYCIN] Allergy (Intermediate, Verified 02/24/25 13:02) RASH Penicillins [PENICILLINS] Allergy (Mild, Verified 02/24/25 13:02) RASH adhesive [ADHESIVE] Allergy (Unknown, Verified 02/24/25 13:02) UNKNOWN hydrocodone [Vicodin] Allergy (Unknown, Verified 02/24/25 13:02) Unknown ibuprofen [IBUPROFEN] Adverse Reaction (Unknown, Verified 02/24/25 13:02) UNKNOWN Tobacco use date assessed: 12/25/24 Dental Screening Dental Screen Date: 12/25/24 HPI HPI Comments History of Present Illness Details 84 year old female with history of asthma-copd overlap, htn, hypothyroidism presents to the office today for post ER evaluation. During last OV patient was noted to be tachyneic with mild distress and increased WOB. She was referred to the ED where CXR showed COPD, cardiomegaly but no acute cardiopulmonary abnormality. Mild leukocytosis likely 2/2 steroid use. Other labs unremarkable. Received IV steroids and nebulizers with good improvement in symptoms. Discharged on prednisone which she completed yesterday. Reports breathing efforts are baseliine. Has some swelling in the LE following prednisone use.Compliant with nebulizers as prescribed by pulm. Has upcoming appt in 2 weeks with them. She is concerned about her thyroid. Has hx of thyroid eye disease. Has enforcement officer and will schedule appt. No longer following with endocrinology. Reports itchy watery eyes and light sensitivity. She needs to use magnifying glass when reading. ROS: General: No fevers, malaise, unintentional weight loss HEENT: see hpi Cardiovascular: No chest pain, palpitations. see hpi Respiratory: No shortness of breath, wheezing, cough. see hpi Neuro: No headaches, weakness, paresthesias Skin: No rashes or lesions EXAM: Constitutional - Awake and Alert, No apparent distress Eyes - PERRL, no eyelid swelling noted Neck - no adenopathy, thyroid is symmetric without palpable nodules Cardiovascular - S1S2, RRR, No edema Respiratory - Normal lung expansion, Normal respiratory effort, No respiratory distress, audible wheezes, scattered expiratory wheezes on auscultation Extremities - no calf tenderness bilaterally, no swelling Skin - Warm/Dry Neurological - Alert & oriented x3 Psychological - Appropriate affect [facility] Medical History Acute anxiety Neuropathy of left ulnar nerve at wrist Compression fracture of C1 vertebra 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 difficile colitis Breast cancer Surgical History History of esophagogastroduodenoscopy (EGD) H/O colonoscopy H/O lymph node biopsy Hx of cataract surgery History of tonsillectomy and adenoidectomy H/O hysterectomy for benign disease History of total bilateral knee replacement H/O kyphoplasty Family History Father No problems noted. Mother Breast cancer Sister Breast cancer Social History Household Members: Children Housing: House Are you a primary hourly caregiver to a significant other at home: No Do you presently have visiting nurse or other home services: No Alcohol intake: never Patient Tobacco Use Status: Former Tobacco user Substance Use Type: Marijuana Advance Directives Date on File: 02/05/25 service: No Current occupational status: retired Cognitive needs: No Hearing needs: No Vision needs: Yes (rx glasses) Questionnaire Thrive Questionnaire Date Thrive assessed: 02/05/25 ALLI-7 AMB Questionnaire LALI-7 Date ALLI - 7 assessed: 12/25/24 Source: Developed by Drs. Julian Martinez, Daya Jose, Jossue Izaguirre and colleagues, with an educational venkatesh from [employer]. Physical exam (Primary Care) Tobacco/Smoking Status: Tobacco use Status Tobacco use date assessed 12/25/24 02/17/25 10:33 Patient Tobacco Use Status Former Tobacco user 02/17/25 12:10 Thrive Assessment: Date of Thrive Assessment Date Thrive assessed 02/05/25 02/17/25 10:33 Coding Level of Care Code Est Pt Level 4 (14015) Complex EM visit Add On G2211 Diagnoses COPD exacerbation J44.1 Hypothyroidism E03.9 Hypertension I10 Assessment & Plan Assessment & Plan (1) COPD exacerbation: Code(s): J44.1 - Chronic obstructive pulmonary disease with (acute) exacerbation Category: Medical Plan: ED provider notes, cxr, labs reviewed. COPD now controlled. Continue duonebs and budesonide nebs as prescribed. Albuterol inhaler prn. Reviewed last pulmnology report. Advised to schedule follow up with pulmonology given multiple exacerbations since OV with them (2) Hypothyroidism: Code(s): E03.9 - Hypothyroidism, unspecified Category: Medical Plan: TSH w reflex free t4 ordered. Continue levothyroxine. Schedule eye exam. Lubricating eye drops recommended. Can consider referral to endo (3) Hypertension: Code(s): I10 - Essential (primary) hypertension Category: Medical Plan: Controlled. Continue hctz, metoprolol. Low sodium diet. Reviewed last renal function and lytes which were normal. Plan Follow up next month as scheduled. TSH ordered for today Orders: Orders TSH reflex Free T4 Today E03.9 - Hypothyroidism, unspecified, I10 - Essential (primary) hypertension
[2025-02-24 13:05] VITALS: BP 130/70; PULSE 64; RESP 20; TEMP 36.7; O2SAT 98; BMI 39.4
--- OUTSIDE RECORDS SUMMARY | 2025-02-24 14:38 | XMS_ITS | Clinical Summary ---
Author Organization [facility] Address [address] [place] [address] Phone Care Team Providers Care Dinkey Motor Operator Name Role Phone John Thao MD Primary Care Provider [phone] Allergies Active Allergy Reactions Criticality Noted Date [...] patient's age to complete this topic Insurance [facility] Medicare Medicaid [place] Medicare [facility] Medicaid [place] Care Teams Dinkey Motor Operator Relationship Specialty Start Date End Date John Thao MD [address] [place] [address] [address] [place], [place] PCP - General 09/28/20
== END 2025-02-24 13:53 | disposition home or self-care (01) ==
LOC: HO.HMCHD 12:58
PROVIDERS: Visit Provider Physician Assistant
DX: J44.1 Chronic obstructive pulmonary disease with (acute) exacerbation (principal); E03.9 Hypothyroidism, unspecified; I10 Essential (primary) hypertension

== ENCOUNTER 2025-02-24 12:58 | Outpatient (REF) | payer MEDICARE, SELFPAY ==
[2025-02-24 14:37] LABS: Appearance Urine Clear; Color Urine Yellow; Glucose Urine UA Negative (Negative); Leukocyte Esterase Urine Trace (Negative); Nitrite Urine Negative (Negative); Specific Gravity - Urine 1.015 (1.005-1.025); UMIC TRIGGER UA YES; Urine Blood Negative (Negative); Urine Ketones Negative (Negative); Urine Protein Negative (Neg-Trace)
[2025-02-24 14:39] LABS: Bacteria Urine 1+ (None Seen); Hyaline Casts Urine 0-2 /LPF (0-2); RBC Urine 0-2 /HPF (0-2); Squamous Epithelial Cell Urine >20 /HPF (0-2)
[2025-02-24 14:43] LABS: Hematocrit 42.4 % (37.0-47.0); Hemoglobin 13.6 g/dl (12.0-16.0); Mean Corpuscular HGB Conc 32.1 g/dl (31.0-35.0); Mean Corpuscular Hemoglobin 31.2 pg (27.0-33.0); Mean Corpuscular Volume 97.2 fL (80.0-98.0); Mean Platelet Volume 10.2 fL (9.4-12.3); Platelet Count 278 X10*3/uL (160-400); Red Blood Count 4.36 X10*6/uL (4.20-5.50); Red Cell Distribution Width 13.8 % (11.0-16.0)
[2025-02-24 15:02] LABS: Anion Gap 15 (12-20); Blood Urea Nitrogen 33 mg/dL (9-16); Carbon Dioxide 31 mmol/L (22-29); Chloride 101 mmol/L (96-108); Estimated Glomerular Filt Rate 34; Glucose Random 106 mg/dL (60-115); Potassium 4.7 mmol/L (3.3-5.1); Sodium 142 mmol/L (135-145)
[2025-02-24 15:24] LABS: TSH reflex Free T4 2.12 uIU/mL (0.32-4.0)
== END 2025-02-24 12:59 | disposition home or self-care (01) ==
LOC: HO.LAB 12:58
PROVIDERS: Absent Provider Internal Medicine Hypertension Specialist; PCP Internal Medicine; Visit Provider Physician Assistant
DX: I12.9 Hypertensive chronic kidney disease with stage 1 through stage 4 chronic kidney disease, or unspecified chronic kidney disease (principal); N18.9 Chronic kidney disease, unspecified; E83.52 Hypercalcemia; E03.9 Hypothyroidism, unspecified; J44.1 Chronic obstructive pulmonary disease with (acute) exacerbation; R82.90 Unspecified abnormal findings in urine
CPT/HCPCS: 36415; 80048; 81001; 84443; 85027; 87086; 99212

== ENCOUNTER 2025-03-13 10:02 | Outpatient (AMB) | payer MEDICARE, SELFPAY ==
[2025-03-13 10:10] VITALS: BP 120/72; PULSE 76; O2SAT 97; BMI 39.8
--- NOTE | 2025-03-13 10:10 | MHC.OFFVIS ---
Vital Signs 03/13/25 10:10 Height 4 ft 11 in Weight 197 lb 5.019 oz BMI 39.8 BP 120/72 Blood Pressure Location Lt brachial Position Sitting Pulse 76 Pulse Source Pulse Oximeter Pulse Oximetry (%) 97 Oxygen Delivery Method Room Air Intake Visit Reasons: COPD Intake Note: pt is here for follow up and states she has been in the for copd exh 3 times, today she is feeling sick, not sure what it is, her stomach Supervisor Fiber Locking Required: No Allergies gabapentin Allergy (Severe, Verified 03/13/25 10:40) severe urinary incont. codeine (CODEINE) Allergy (Intermediate, Verified 03/13/25 10:40) Rash fish derived (FISH) Allergy (Intermediate, Verified 03/13/25 10:40) HIVES Iodinated Contrast Media (IV Dye, Iodine Containing) Allergy (Intermediate, Verified 03/13/25 10:40) HIVES nitrofurantoin (Nitrofurantoin) Allergy (Intermediate, Verified 03/13/25 10:40) HIVES Sulfa (Sulfonamide Antibiotics) (SULFA (SULFONAMIDE ANTIBIOTICS)) Allergy (Intermediate, Verified 03/13/25 10:40) RASH valsartan (From DIOVAN) Allergy (Intermediate, Verified 03/13/25 10:40) HIVES vancomycin (VANCOMYCIN) Allergy (Intermediate, Verified 03/13/25 10:40) RASH Penicillins (PENICILLINS) Allergy (Mild, Verified 03/13/25 10:40) RASH adhesive (ADHESIVE) Allergy (Unknown, Verified 03/13/25 10:40) UNKNOWN hydrocodone (Vicodin) Allergy (Unknown, Verified 03/13/25 10:40) Unknown ibuprofen (IBUPROFEN) Adverse Reaction (Unknown, Verified 03/13/25 10:40) UNKNOWN Do you need a note to return to daycare/school/sports/work: No HPI HPI COPD: Details: 84 YEARS OLD FEMALE WHO HAS ADVANCED CHRONIC OBSTRUCTIVE PULMONARY DISEASE, AND ALSO HAS GROSS OBESITY, WAS ADMITTED TO [facility] FROM 02/06 BECAUSE OF SWELLING OF THE NECK AND INCREASED SHORTNESS OF BREATH. IT WAS FELT THAT SHE HAD AN ALLERGIC REACTION TO FLAGYL WHICH WAS PRESCRIBED FOR POSSIBLE DIVERTICULITIS. SHE WAS ALSO TREATED FOR ACUTE EXACERBATION WITH A SHORT COURSE OF PREDNISONE. HE HAS COMES HERE TODAY FOR FOLLOW-UP, COMPLAINS OF SHORTNESS OF BREATH ON MINIMAL EXERTION BUT THIS IS SAME USUAL. SHE HAS MILD COUGH, DENIES ANY WHEEZING ATTACKS. SHE IS USING IPRATROPIUM-ALBUTEROL SOLUTION IN THE NEBULIZER 3 TIMES A DAY AND ALSO BUDESONIDE 0.5 MG SOLUTION B.I.D. HER ABDOMEN REMAINS BLOATING IT AND THIS IN TURN MAKES HER MORE SHORT OF BREATH. 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 difficile colitis Breast cancer Surgical History History of esophagogastroduodenoscopy (EGD) H/O colonoscopy H/O lymph node biopsy Hx of cataract surgery History of tonsillectomy and adenoidectomy H/O hysterectomy for benign disease History of total bilateral knee replacement H/O kyphoplasty Family History Father No problems noted. Mother Breast cancer Sister Breast cancer Social History Household Members: Children Housing: House Are you a primary lawn caretaker to a significant other at home: No Do you presently have visiting nurse or other home services: No Alcohol intake: never Patient Tobacco Use Status: Former Tobacco user Substance Use Type: Marijuana Advance Directives Date on File: 02/05/25 service: No Current occupational status: retired Cognitive needs: No Hearing needs: No Vision needs: Yes (rx glasses) Review of Systems Const All systems reviewed & are unremarkable except as noted in HPI and below Eyes Reports no additional complaints ENT Reports no additional complaints Card Denies chest pain, Denies irregular heart rhythm and Denies leg edema Resp Reports as per HPI GI Reports no additional complaints Reports no additional complaints Musc Reports abnormal gait (Needs the walker to ambulate) and Reports back pain Skin/Breast Reports system reviewed and no additional complaints, except as documented Neuro Reports abnormal gait (Needs the walker to ambulate) Psych Reports no additional complaints Endo Reports no additional complaints Physical Exam Vital Signs: Last Vital Signs Pulse 76 03/13/25 10:10 BP 120/72 03/13/25 10:10 Pulse Ox 97 03/13/25 10:10 Oxygen Delivery Method Room Air 03/13/25 10:10 BMI result Body Mass Index 39.8 Const Other: Grossly overweight General: comfortable, no acute distress, alert and awake Orientation/consciousness: patient oriented x3 HEENT Head: Yes normal to inspection General nose exam: No nasal polyps present and No nasal discharge present Face and sinus: Yes sinuses nontender Mouth: oropharynx normal Throat: Yes posterior oropharynx normal Eyes General: appearance normal, both eyes and all related structures Neck Neck: Yes normal visual inspection, Yes no lymphadenopathy (And no submandibular adenitis), Yes trachea midline and Yes no JVD Thyroid: Thyroid normal Chest Chest palpation & inspection: normal inspection of the chest, normal palpation of entire chest wall and no tenderness Resp Other: Percussion note is resonant, breath sounds are very distant with prolonged expiratory phase. No active wheezes or crepitations are heard today. Cardio Palpation: normal PMI Rate: regular rate Rhythm: regular rhythm Heart sounds: no gallops and no murmurs GI Palpation (GI): Soft to palpation, Tenderness to palpation present (GI), No hepatosplenomegaly present, Palpable mass present and Other GI palpation findings present (Abdomen is obese and protuberant) Auscultation: normal bowel sounds Back/Spine/Pelvis Thoracic/Lumbar Spine: thoracic and lumbar spine normal to inspection and thoraco-lumbar ROM limited Skin General skin exam: no rashes or lesions noted Neuro General: patient oriented x3, No gait normal (Gait unstable ,uses walker) and no focal motor deficits Cranial nerves: Yes CN's II-XII intact bilaterally Extrem General: Yes normal to inspection, Yes no clubbing, cyanosis or edema and Yes no calf tenderness Psych Appearance: grossly normal and well kempt Speech and movement: Normal speech and movement present Affect: Anxious affect present Assessment & Plan Assessment & Plan (1) Asthma-COPD overlap syndrome: Comment: PATIENT DOES HAVE MODERATELY ADVANCED ASTHMA COPD SYNDROME, IT HAS BEEN STABLE AND CONTROLLED WITH HER CURRENT REGIMEN. THE FEELING OF CHEST CONGESTION AND INCREASED SHORTNESS OF BREATH, WAS MAINLY RELATED TO ANXIETY ESPECIALLY AT NIGHT. THAT HAS MUCH IMPROVED , AND ALSO SIMPLIFICATION OF HER MEDICAL REGIMEN HAS HELPED. Code(s): J44.9 - Chronic obstructive pulmonary disease, unspecified Category: Medical Plan: SHE IS ADVISED TO USE IPRATROPIUM-ALBUTEROL SOLUTION 3 MALE IN THE NEBULIZER AND USE IT Q 6 HOURS WHILE AWAKE ( TID ) SHE IS ADVISED TO ADD BUDESONIDE 0.5 MG IN 3 MALE SOLUTION IN THE NEBULIZER B.I.D.. SHE MAY USE ALBUTEROL HFA 2 PUFFS Q 4-6 HOURS P.R.N. IN ADDITION TO ABOVE. PATIENT IS GIVEN AN INCENTIVE SPIROMETRY FROM THE OFFICE AND INSTRUCTED TO DO DEEP BREATHING EXERCISES EVERY 2 HOURS WHILE AWAKE. (2) Acute anxiety: Comment: PATIENT LIVES ALONE, HER LOCOMOTION IS QUITE IMPAIERD , TENDS TO GET VERY ANXIOUS, ESPECIALLY AT NIGHT. HE DOES DAY SOMEWHAT CONTROLLED WITH THE USE OF LORAZEPAM 0.5 MG AT BEDTIME. CURRENTLY NOT SLEEPING WELL AND REMAINS SOMEWHAT SLEEPY AND TIRED DURING THE DAYTIME. SHE ALWAYS USES HER WALKER TO WALK AROUND SO THERE HAS BEEN NO PROBLEM WITH THE BALANCE. Code(s): F41.9 - Anxiety disorder, unspecified Category: Medical Plan: HAD A GOOD TALK AND TRY TO REASSURE HER. MAY USE LORAZEPAM 0.5 MG AT BEDTIME (3) Obesity: Comment: SHE IS AWARE OF THE FACT THAT SHE IS QUITE OVERWEIGHT. IT DOES ADD TO HER GENERAL WEAKNESS AND SHORTNESS OF BREATH ON EXERTION. Code(s): E66.9 - Obesity, unspecified Category: Medical Plan: SHE DIFFICULT FOR HER TO LOSE ANY WEIGHT, SHE CAN NOT DO EXERCISE OR AMBULATE MUCH. Coding Level of Care Code Est Pt Level 3 (00239) Diagnoses Asthma-COPD overlap syndrome J44.9 Acute anxiety F41.9 Obesity E66.9
--- OUTSIDE RECORDS SUMMARY | 2025-03-13 11:34 | XMS_ITS | Clinical Summary ---
Author Organization [facility] Address [address] [place] [address] Phone Care Team Providers Care Poultry Picking Machine Tender Name Role Phone John Thao MD Primary Care Provider [phone] Allergies Active Allergy Reactions Criticality Noted Date [...] patient's age to complete this topic Insurance [facility] Medicare Medicaid [place] Medicare [facility] [place] Care Teams Poultry Picking Machine Tender Relationship Specialty Start Date End Date John Thao MD [address] [place] [address] [address] [place], [place] PCP - General 09/28/20
== END 2025-03-13 10:37 | disposition home or self-care (01) ==
LOC: HO.HPS 10:04
PROVIDERS: PCP Internal Medicine; Visit Provider Internal Medicine
DX: J44.9 Chronic obstructive pulmonary disease, unspecified (principal); F41.9 Anxiety disorder, unspecified; E66.9 Obesity, unspecified
CPT/HCPCS: 99213

== ENCOUNTER → 2025-03-13 10:02 | Outpatient (BNVA) | payer MEDICARE, SELFPAY | PROVIDERS: PCP Internal Medicine; Visit Provider Internal Medicine | DX: J44.89 Other specified chronic obstructive pulmonary disease (principal); F41.8 Other specified anxiety disorders; E66.9 Obesity, unspecified; Z68.39 Body mass index [BMI] 39.0-39.9, adult | CPT/HCPCS: 99212 ==

== ENCOUNTER 2025-03-17 09:43 | Outpatient (REF) | payer MEDICARE, SELFPAY ==
--- NOTE | ~2025-03-17 | XR_ITS ---
CLINICAL HISTORY: M25.559 - Pain in unspecified hip --- Additional Notes or Special Instructions: left hip pain x 2 weeks. 2 view left hip Comparison: None provided Findings: No acute fracture or dislocation. Mild DJD. The soft tissues are unremarkable. IMPRESSION: No acute findings. This document has been electronically signed by: Danilo Chua MD on 03/18/2025 20:04:31
== END 2025-03-17 09:44 | disposition home or self-care (01) ==
LOC: HO.XRAY 09:43
PROVIDERS: PCP Physician Assistant; Visit Provider Internal Medicine Hypertension Specialist
DX: M25.552 Pain in left hip (principal); I12.9 Hypertensive chronic kidney disease with stage 1 through stage 4 chronic kidney disease, or unspecified chronic kidney disease; N18.9 Chronic kidney disease, unspecified; E83.52 Hypercalcemia; J44.9 Chronic obstructive pulmonary disease, unspecified
CPT/HCPCS: 73502; 99212

== ENCOUNTER 2025-03-17 09:43 | Outpatient (AMB) | payer MEDICARE, SELFPAY ==
[2025-03-17 09:44] VITALS: BP 128/72; PULSE 96; O2SAT 97; BMI 39.8
--- NOTE | 2025-03-17 09:44 | HO.NEPHOV ---
Vital Signs 03/17/25 09:44 Height 4 ft 11 in Weight 197 lb BMI 39.8 BP 128/72 Blood Pressure Location Rt brachial Position Sitting Pulse 96 Pulse Source Pulse Oximeter Pulse Oximetry (%) 97 Oxygen Delivery Method Room Air Intake Visit Reasons: CKD/ Conf Supervisor Solder Making Required: No Accompanied by: Self / Same As Patient Allergies gabapentin Allergy (Severe, Verified 03/17/25 09:46) severe urinary incont. codeine (CODEINE) Allergy (Intermediate, Verified 03/17/25 09:46) Rash fish derived (FISH) Allergy (Intermediate, Verified 03/17/25 09:46) HIVES Iodinated Contrast Media (IV Dye, Iodine Containing) Allergy (Intermediate, Verified 03/17/25 09:46) HIVES nitrofurantoin (Nitrofurantoin) Allergy (Intermediate, Verified 03/17/25 09:46) HIVES Sulfa (Sulfonamide Antibiotics) (SULFA (SULFONAMIDE ANTIBIOTICS)) Allergy (Intermediate, Verified 03/17/25 09:46) RASH valsartan (From DIOVAN) Allergy (Intermediate, Verified 03/17/25 09:46) HIVES vancomycin (VANCOMYCIN) Allergy (Intermediate, Verified 03/17/25 09:46) RASH Penicillins (PENICILLINS) Allergy (Mild, Verified 03/17/25 09:46) RASH adhesive (ADHESIVE) Allergy (Unknown, Verified 03/17/25 09:46) UNKNOWN hydrocodone (Vicodin) Allergy (Unknown, Verified 03/17/25 09:46) Unknown ibuprofen (IBUPROFEN) Adverse Reaction (Unknown, Verified 03/17/25 09:46) UNKNOWN Medication List - Last Reconciled 03/17/25 by Nicolas Powell MD albuterol sulfate 90 mcg/actuation 2 puffs inhalation Q6H PRN albuterol sulfate 2.5 mg inhalation Q4H PRN budesonide DR-ER 6 mg (2 x 3 mg) PO DAILY hydrochlorothiazide 25 mg PO DAILY ipratropium-albuterol 0.5 mg-3 mg(2.5 mg base)/3 mL 3 mL inhalation Q6H PRN 30 days levothyroxine 50 mcg PO DAILY@0600 lorazepam (Ativan) 0.5 mg PO BEDTIME PRN 30 days metoprolol succinate ER 50 mg PO DAILY ondansetron HCl 4 mg PO DAILY PRN oxycodone 5 mg PO QID PRN rabeprazole (AcipHex) 20 mg PO DAILY tramadol 50 mg PO BID HPI Comments Details: Elderly woman with a history of longstanding hypertension and CKD along with COPD. She continues have shortness or breath and uses inhalers. 10/03/23; Has increased urine output 03/04/2024. No new renal issues today. She has had difficulty swallowing and underwent barium swallow. 03/17/25 The patient is an 84-year-old female presenting with management of Chronic Obstructive Pulmonary Disease (COPD). She has been hospitalized multiple times for COPD exacerbations and experienced an allergic reaction to an unspecified medication, resulting in throat and mouth swelling. The patient uses a nebulizer three times daily, which provides some relief, and has been on and off steroids for several months. The patient also reports a history of thyroid disorder and Graves' disease, which she believes may have been affected by her medication regimen. She has experienced constipation, with a recent episode lasting ten days, requiring hospitalization. The patient reports edema, described as swelling and puffiness, and is currently taking hydrochlorothiazide to manage this condition. She has been advised to monitor her salt intake to help control the edema. The patient experiences sharp pain in her cheek and buttock, persisting for two weeks, which occasionally disrupts her sleep. She takes oxycodone for back pain, which temporarily alleviates the cheek and buttock pain. An x-ray of the hip has been recommended to rule out any underlying issues, especially considering her long-term prednisone use - ? Avascular necrosis. 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 difficile colitis Breast cancer Surgical History History of esophagogastroduodenoscopy (EGD) H/O colonoscopy H/O lymph node biopsy Hx of cataract surgery History of tonsillectomy and adenoidectomy H/O hysterectomy for benign disease History of total bilateral knee replacement H/O kyphoplasty Family History Father No problems noted. Mother Breast cancer Sister Breast cancer Social History Household Members: Children Housing: House Are you a primary career technical counselor to a significant other at home: No Do you presently have visiting nurse or other home services: No Alcohol intake: never Patient Tobacco Use Status: Former Tobacco user Substance Use Type: Marijuana Advance Directives Date on File: 02/05/25 service: No Current occupational status: retired Cognitive needs: No Hearing needs: No Vision needs: Yes (rx glasses) Physical Exam Vital Signs: Last Vital Signs Pulse 96 03/17/25 09:44 BP 128/72 03/17/25 09:44 Pulse Ox 97 03/17/25 09:44 Oxygen Delivery Method Room Air 03/17/25 09:44 BMI result Body Mass Index 39.8 Const General: comfortable; No acute distress Orientation/consciousness: patient oriented x3 Eyes General: appearance normal, both eyes and all related structures Visual Dukes: normal visual dukes by confrontation Neck Neck: Yes supple and Yes no JVD Resp Effort & Inspection: normal respiratory effort and respiratory effort not decreased Auscultation: rhonchi Cardio Palpation: no palpable S3 and no palpable S4 Heart sounds: no rubs GI Inspection: Yes normal to inspection Palpation (GI): Soft to palpation Percussion: Yes normal to percussion Auscultation: normal bowel sounds General: Yes no CVA tenderness Back/Spine/Pelvis Back: no CVA tenderness Skin General skin exam: no petechiae and no purpura Neuro General: patient oriented x3 and no focal motor deficits Extrem General: No clubbing and No edema Results Reviewed Nephrology Results: Hgb, (12.0-16.0) 13.6 g/dl 02/24/25 WBC, (4.8-10.8) 12.0 X10*3/uL H 02/24/25 Plt Count, (160-400) 278 X10*3/uL 02/24/25 Sodium, (135-145) 142 mmol/L 02/24/25 Potassium, (3.3-5.1) 4.7 mmol/L 02/24/25 Chloride, (96-108) 101 mmol/L 02/24/25 Carbon Dioxide, (22-29) 31 mmol/L H 02/24/25 BUN, (9-16) 33 mg/dL H 02/24/25 Creatinine, (0.5-1.4) 1.45 mg/dL H 02/24/25 Calcium, (8.4-10.2) 10.0 mg/dL 02/24/25 Urine Protein, (Neg-Trace) Negative mg/dL 02/24/25 Renal US 01/13/22 Assessment & Plan Assessment & Plan (1) CKD (chronic kidney disease): Code(s): N18.9 - Chronic kidney disease, unspecified Category: Medical Plan: CKD in a setting of longstanding hypertension. Cr is better at 1.3 Renal function remains stable eGFR 32- 40 ml/mt (2) Hypercalcemia: Code(s): E83.52 - Hypercalcemia Category: Medical Plan: Repeat calcium is better SPEP - NO MCGP DC Vit D supplement (3) Hypertension: Code(s): I10 - Essential (primary) hypertension Category: Medical Plan: Blood pressure has been acceptable. check blood pressure at home if possible. Continue with low-salt diet. (4) Asthma-COPD overlap syndrome: Code(s): J44.9 - Chronic obstructive pulmonary disease, unspecified Category: Medical Plan: Follow-up with Pulmonary Plan - Continue using the nebulizer three times daily as prescribed. - Take hydrochlorothiazide as directed to manage swelling. - Monitor salt intake to help control edema. - Schedule an x-ray for hip evaluation ? Avascular necrosis and follow up with your primary care provider. Orders: Orders XR hip LT min 2V Today M25.559 - Pain in unspecified hip Coding Level of Care Code Est Pt Level 4 (52877) Diagnoses CKD (chronic kidney disease) N18.9 Hypercalcemia E83.52 Hypertension I10 Asthma-COPD overlap syndrome J44.9
--- OUTSIDE RECORDS SUMMARY | 2025-03-17 10:08 | XMS_ITS | Clinical Summary ---
Author Organization [facility] Address [address] [place] [address] Phone Care Team Providers Care Dress Cutter Name Role Phone John Thao MD Primary Care Provider [phone] Allergies Active Allergy Reactions Criticality Noted Date [...] patient's age to complete this topic Insurance [facility] Medicare Medicaid [place] Medicare [facility] Medicaid [place] Care Teams Dress Cutter Relationship Specialty Start Date End Date John Thao MD [address] [place] [address] [address] [place], [place] PCP - General 09/28/20
== END 2025-03-17 10:01 | disposition home or self-care (01) ==
LOC: HO.HKA 09:43
PROVIDERS: PCP Internal Medicine; Visit Provider Internal Medicine Hypertension Specialist
DX: I12.9 Hypertensive chronic kidney disease with stage 1 through stage 4 chronic kidney disease, or unspecified chronic kidney disease (principal); N18.9 Chronic kidney disease, unspecified; E83.52 Hypercalcemia; J44.9 Chronic obstructive pulmonary disease, unspecified
CPT/HCPCS: 99214

== ENCOUNTER → 2025-03-17 10:15 | Outpatient (BNV) | payer MEDICARE, SELFPAY | PROVIDERS: PCP Physician Assistant; Visit Provider Student in an Organized Health Care Education/Training Program | DX: M16.12 Unilateral primary osteoarthritis, left hip (principal) | CPT/HCPCS: 73502 ==

== ENCOUNTER 2025-04-03 11:46 | Outpatient (AMB) | payer MEDICARE, SELFPAY ==
--- NOTE | 2025-04-03 11:51 | MHC.OFFVIS ---
Vital Signs 04/03/25 11:53 Height 4 ft 11 in Weight 194 lb 0.108 oz BMI 39.2 BP 120/58 L Blood Pressure Location Lt radial Position Sitting Pulse 75 Intake Visit Reasons: Colitis Dysphagia Intake Note: Joelle presents in the office for colitis and dysphagia. CC: She states she feels crappy - she is having issues with her bowels. She was in our ED three times and just recently she had a CT scan and EGD w/ Dilation. She states that she ended up with an infection because she was unable to have a BM - she thinks she has something called fish hook She states that her stools are back to constipation and she has used a lot of medications to have a BM and in the ED they gave her an enema. Nothing seems to be helping her. Backroom Associate Required: No Allergies gabapentin Allergy (Severe, Verified 04/03/25 11:53) severe urinary incont. codeine (CODEINE) Allergy (Intermediate, Verified 04/03/25 11:53) Rash fish derived (FISH) Allergy (Intermediate, Verified 04/03/25 11:53) HIVES Iodinated Contrast Media (IV Dye, Iodine Containing) Allergy (Intermediate, Verified 04/03/25 11:53) HIVES nitrofurantoin (Nitrofurantoin) Allergy (Intermediate, Verified 04/03/25 11:53) HIVES Sulfa (Sulfonamide Antibiotics) (SULFA (SULFONAMIDE ANTIBIOTICS)) Allergy (Intermediate, Verified 04/03/25 11:53) RASH valsartan (From DIOVAN) Allergy (Intermediate, Verified 04/03/25 11:53) HIVES vancomycin (VANCOMYCIN) Allergy (Intermediate, Verified 04/03/25 11:53) RASH Penicillins (PENICILLINS) Allergy (Mild, Verified 04/03/25 11:53) RASH adhesive (ADHESIVE) Allergy (Unknown, Verified 04/03/25 11:53) UNKNOWN hydrocodone (Vicodin) Allergy (Unknown, Verified 04/03/25 11:53) Unknown ibuprofen (IBUPROFEN) Adverse Reaction (Unknown, Verified 04/03/25 11:53) UNKNOWN Medication List - Last Reconciled 04/03/25 by DEBBIE Najera albuterol sulfate 90 mcg/actuation 2 puffs inhalation Q6H PRN albuterol sulfate 2.5 mg inhalation Q4H PRN budesonide DR-ER 6 mg (2 x 3 mg) PO DAILY hydrochlorothiazide 25 mg PO DAILY ipratropium-albuterol 0.5 mg-3 mg(2.5 mg base)/3 mL 3 mL inhalation Q6H PRN 30 days levothyroxine 50 mcg PO DAILY@0600 lorazepam (Ativan) 0.5 mg PO BEDTIME PRN 30 days metoprolol succinate ER 50 mg PO DAILY ondansetron HCl 4 mg PO DAILY PRN oxycodone 5 mg PO QID PRN rabeprazole (AcipHex) 20 mg PO DAILY tramadol 50 mg PO BID wheat dextrin (Benefiber Clear Sugar Free(dextrin)) 1.5 grams PO BID HPI HPI Colitis Dysphagia: Details: Assessment & Plan (1) Dysphagia: Code(s): R13.10 - Dysphagia, unspecified Category: Medical (2) Multiple food allergies: Comment: RAST shows food allergies to Egg whites, cows milk, wheat, shrimp, and sesame seeds Code(s): Z91.018 - Allergy to other foods Category: Medical (3) Erosive esophagitis: Code(s): K22.10 - Ulcer of esophagus without bleeding Category: Medical (4) Elevated fecal calprotectin: Code(s): R19.5 - Other fecal abnormalities Category: Medical (5) Colitis: Code(s): K52.9 - Noninfective gastroenteritis and colitis, unspecified Category: Medical Plan She is here today with her son who is supportive. She did have an improvement in her swallowing with the dilation. She still has some diarrhea breakthrough, but we are still waiting for her CT enterogram to see if IBD is in the ddx. She is taking the budesonide 2 caps a day. However, her diarrhea has improved since we started working on it as well as HB. She DOES have multiple food allergies. SHe continues on rabeprazole, imipramine 20mg and budesonide. ROV 3 mos Medications: Changed From imipramine HCl 10 mg PO DAILY To imipramine HCl 20 mg (2 x 10 mg) PO DAILY 60 tabs 6RF Refilled rabeprazole (AcipHex) 20 mg PO DAILY 90 tabs 3RF K21.9 - Gastro-esophageal reflux disease without esophagitis, K22.10 - Ulcer of esophagus without bleeding, R13.10 - Dysphagia, unspecified REVIEW OF ER VISITS 02/03, 02/04 AND 03/07/202502/03 SHE ADMITTED FOR SEVERE CONSTIPATION and was treated with glycerin, lactulose and Mag citrate and was sent home with Levaquin and Flagyl because of a question of diverticulitis on CT read. She returned 02/04 with a complaint of feeling like her throat was closing it was diagnose that uveitis of uncertain cause, 03/07 she was seen for COPD exacerbation and discharged with prednisone. CT ABDOMEN AND PELVIS 02/03/2025 FINDINGS: LUNG BASES: No gross acute airspace disease. Subcentimeter broad-based noncalcified nodules, left lower hemithorax and posteriorly on the right lung base. LIVER, GALLBLADDER, AND BILIARY TREE: Liver measures 15 cm with nodular surface. Subcentimeter hypodensity too small to be fully characterized. No gross focal mass. Portal veins and hepatic veins and intrahepatic portion of the IVC are grossly patent. Hyperdensities within the gallbladder lumen. No pericholecystic fluid collection or gallbladder wall thickening. Common bile duct measures 8 mm tapers at the junction with the duodenum. PANCREAS: Decrease volume without focal mass. No peripancreatic fluid collection. No main pancreatic ductal dilatation. SPLEEN: 8 cm. No focal mass. ADRENAL GLANDS: No nodular lesions. KIDNEYS AND URETERS: No gross hydronephrosis or nephrolithiasis. Multifocal exophytic and cortical medullary junction hypodensities throughout the renal parenchyma, the largest measures 6.4 cm in the right kidney. BLADDER: Fluid-filled GASTROINTESTINAL TRACT: I do not see the appendix. Numerous diverticula, left hemicolon mostly in the sigmoid colon. Abundant stool throughout the large intestine. Subsegmental areas of wall thickening in the mid transverse colon with a narrowed lumen. Fecal appearance of the distal ileal loops. No intestinal obstruction pattern. Scattered diverticula in the distal ileal loops. Probable diverticula in the second portion of the third portion of the duodenum. No pneumatosis intestinalis. No pneumoperitoneum. No ascites. No peripheral enhancing fluid collection in the peritoneal cavity. ABDOMINAL WALL: Fat-containing umbilical hernia and diastases abdominal rectus muscles in the periumbilical region. LYMPH NODES: Not enlarged lymph nodes in the mesenteric or retroperitoneal. VASCULAR: There is an thoracic aorta caliber 3.6 cm with a mixed plaques. Irregular shaped mixed plaques throughout the abdominal aorta and iliac arteries without aneurysm or dissection. PELVIC VISCERA: Multiple vascular clips in the presacral region. The uterus is absent. OSSEOUS STRUCTURES: Status post kyphoplasty/vertebroplasty procedure at L3. Old compression deformity, L4 and representing 80% volume loss. Grade 1 anterolisthesis L3-4 and L4-5 on a degenerative basis resulting in bilateral neuroforamina stenosis and central spinal canal stenosis. 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 CT/CT abdomen pelvis w IV con IMPRESSION: Diverticular disease versus diverticulosis and questionable superimposed noncomplicated diverticulitis in the sigmoid colon. Subsegmental wall thickening transverse colon suggesting acute to subacute inflammatory process/colitis. Hepatocellular disease/cirrhosis. Cholelithiasis. Stricture at the sphincter of Oddi should be considered. Atherosclerosis disease. Ectatic descending thoracic aorta. Bilateral renal cysts. Fat-containing umbilical hernia. Osteoporosis. Grade 1 anterolisthesis L3-4 and L4-5 resulting in central spinal canal and bilateral neuroforamina stenosis. Laboratory Tests 02/03/25 02/04/25 02/05/25 07:44 10:44 05:45 WBC 10.4 9.1 Estimated GFR 32 Total Bilirubin Direct Bilirubin AST ALT Alkaline Phosphatase B-Natriuretic Peptide TSH 02/17/25 02/24/25 11:47 14:20 WBC Estimated GFR Total Bilirubin 1.0 Direct Bilirubin 0.4 AST 19 ALT 15 Alkaline Phosphatase 80 B-Natriuretic Peptide 224 H TSH 2.12 TODAY'S VISIT SHe continues on rabeprazole, imipramine 20mg and budesonide. She is no longer taking the budesonide. She has a complex set of symptoms over the past few months. I have not seen her since 06/2024, but in the interim she has been struggling more with constipation then her past diarrhea. Recently she presented to the ER and had a CAT scan, because she could not move her bowels after 10 days despite attempts at digital disimpaction, and it showed a large stool load with questionable diverticulitis without any amalia stranding or lymphadenopathy. They decided to treat her with Colace and lactulose after attempting lactulose and a soapsuds enema without return in the ER. She was also given Levaquin and Flagyl because of the question of diverticulitis. She presented the next day with the sensation of her throat closing. Uvulitis was confirmed on CT and she was admitted. She was treated with steroids with good resolution but this leaves on answered the question of whether or not this was an allergic reaction potentially to Levaquin or she fears to Colace, or whether this was a viral or bacterial infectious insult. She has a history of problems with her submandibular gland and this did show submandibular lymphadenopathy and/or inflammation on the subsequent CT of throat. She has an upcoming appointment with an ear nose throat specialist which is francis. Because of her history of fecal incontinence I am reluctant to give her too strong of a laxative agent. I am also reluctant to start Colace because we do not know if she had any kind of allergic reaction or to exactly what agent. She is taking Benefiber without good results. She is going to continue the Benefiber, I think she should add whole prunes, and because she is also having sustained constant nausea which makes me question gastroparesis interfering with peristalsis I am going to give her a trial of Reglan 5 mg 3 times a day. She was given Zofran in the past but I think Reglan is a better agent as it will address the nausea and if there is an underlying motility issue also will be beneficial for this. In the meantime her CAT scan of the abdomen and pelvis also showed gallstones so will get a HIDA scan. A gastric emptying study is also prudent given the symptoms set. I also think that we should order a colonoscopy as she has not had 1 since 2018. She did have a recent upper endoscopy for her nausea that was fairly unrevealing. Her primary care provider was Dr. Thao who is retired recently so she has not had good coordination of care in terms of all of her specialist and emergency room visits. 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 She denies any cardiac problems. There are no prior problems with anesthesia or sedation. There are no infectious disease problems. Return office 3 weeks. She has also been on levothyroxine with an unchanged dose for quite some time and her thyroids running in the high normal range so we may need to consider subclinical hypothyroidism. This is a very very long appointment as the patient really needs better coordination of care, I need to thoroughly review much of the background information, and she is at this time a bit frustrated and anxious about the entire situation. She needs frequent redirection to try to keep her on track in terms of the GI presentation because she is also having issues with recurrent asthma, and low back pain radiating to the buttock. 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 difficile colitis Breast cancer Surgical History History of esophagogastroduodenoscopy (EGD) H/O colonoscopy H/O lymph node biopsy Hx of cataract surgery History of tonsillectomy and adenoidectomy H/O hysterectomy for benign disease History of total bilateral knee replacement H/O kyphoplasty Family History Father No problems noted. Mother Breast cancer Sister Breast cancer Social History Household Members: Children Housing: House Are you a primary personal care aide to a significant other at home: No Do you presently have visiting nurse or other home services: No Alcohol intake: never Patient Tobacco Use Status: Former Tobacco user Substance Use Type: Marijuana Advance Directives Date on File: 02/05/25 service: No Current occupational status: retired Cognitive needs: No Hearing needs: No Vision needs: Yes (rx glasses) Review of Systems Const Denies fatigue, Denies fever(s), Denies night sweats, Denies poor appetite, Reports weight gain and Denies weight loss Eyes Details: glasses Reports requires corrective lenses ENT Reports Normal hearing present, Denies dental pain, Denies dysphagia, Denies hearing loss, Denies mouth pain, Denies odynophagia, Reports sore throat, Reports throat swelling, Denies tongue swelling and Reports other (Dentition adequate) Card Reports no additional complaints Resp Reports cough GI Details: Denies abdominal pain, Denies melena, Denies bloating, Reports hematochezia, Reports constipation, Denies GI cramping, Denies dysphagia, Denies excessive flatus, Denies early satiety, Reports heartburn, Reports diarrhea, Reports nausea, Denies odynophagia, Reports vomiting and Denies hematemesis Musc Reports back pain, Reports myalgias, Reports arthralgias and Reports radiating pain into limb Skin/Breast Denies pruritus, Denies lesions, Denies rash and Denies jaundice Neuro Reports Normal hearing present and Denies Abnormal speech present Psych Reports anxiety, Reports depression, Denies homicidal ideation and Denies suicidal ideation Endo Denies fatigue Aller/Immun Reports throat swelling and Denies tongue swelling Physical Exam Vital Signs: Last Vital Signs Pulse 75 04/03/25 11:53 BP 120/58 L 04/03/25 11:53 BMI result Body Mass Index 39.2 Const General: cooperative, no acute distress, well developed and well groomed Nutritional Appearance: well nourished and obese Orientation/consciousness: oriented to person, oriented to place and oriented to time Limitations: No language barrier HEENT Head: Yes normocephalic and Yes atraumatic Eyes General: appearance normal, both eyes and all related structures Pupils: Equal, round and reactive pupils present Neck Neck: Yes normal visual inspection and Yes no lymphadenopathy Thyroid: Thyroid normal Resp Effort & Inspection: normal respiratory effort and able to speak in complete sentences Auscultation: clear to auscultation bilaterally Cardio Rate: regular rate Rhythm: regular rhythm Heart sounds: Normal, physiologic split S2 sound present Peripheral pulses: radial pulses present and posterior tibial pulses present GI Inspection: No distended, Yes Abdominal panniculus present and Yes obesity Palpation (GI): Soft to palpation, nontender, no guarding, not rigid and No hepatosplenomegaly present Percussion: Yes normal to percussion Auscultation: normal bowel sounds Rectal Exam - Female: deferred Skin General skin exam: no rashes or lesions noted, turgor normal, skin not dry, no jaundice, No spider nevi and no striae Rashes: no rashes Nails: normal Neuro General: oriented to person, oriented to place and oriented to time Cranial nerves: Yes Equal, round and reactive pupils present and Yes Normal hearing present Speech: No Abnormal speech present Extrem General: Yes normal to inspection, No clubbing, No cyanosis and No edema Psych Appearance: grossly normal and well kempt Mental Status: mental status grossly normal Speech and movement: Pressured speech present Affect: Anxious affect present Attitude: cooperative Thought process: Circumstantial thought process present, not confabulating and Racing thoughts present Thought content: Normal thought content present Insight: Limited insight present (Psych) Judgement: Limited judgement present (Psych) Results Reviewed Results Reviewed: REVIEW OF ER VISITS 02/03, 02/04 AND 03/07/202502/03 SHE ADMITTED FOR SEVERE CONSTIPATION and was treated with glycerin, lactulose and Mag citrate and was sent home with Levaquin and Flagyl because of a question of diverticulitis on CT read. She returned 02/04 with a complaint of feeling like her throat was closing it was diagnose that uveitis of uncertain cause, 03/07 she was seen for COPD exacerbation and discharged with prednisone. CT ABDOMEN AND PELVIS 02/03/2025 FINDINGS: LUNG BASES: No gross acute airspace disease. Subcentimeter broad-based noncalcified nodules, left lower hemithorax and posteriorly on the right lung base. LIVER, GALLBLADDER, AND BILIARY TREE: Liver measures 15 cm with nodular surface. Subcentimeter hypodensity too small to be fully characterized. No gross focal mass. Portal veins and hepatic veins and intrahepatic portion of the IVC are grossly patent. Hyperdensities within the gallbladder lumen. No pericholecystic fluid collection or gallbladder wall thickening. Common bile duct measures 8 mm tapers at the junction with the duodenum. PANCREAS: Decrease volume without focal mass. No peripancreatic fluid collection. No main pancreatic ductal dilatation. SPLEEN: 8 cm. No focal mass. ADRENAL GLANDS: No nodular lesions. KIDNEYS AND URETERS: No gross hydronephrosis or nephrolithiasis. Multifocal exophytic and cortical medullary junction hypodensities throughout the renal parenchyma, the largest measures 6.4 cm in the right kidney. BLADDER: Fluid-filled GASTROINTESTINAL TRACT: I do not see the appendix. Numerous diverticula, left hemicolon mostly in the sigmoid colon. Abundant stool throughout the large intestine. Subsegmental areas of wall thickening in the mid transverse colon with a narrowed lumen. Fecal appearance of the distal ileal loops. No intestinal obstruction pattern. Scattered diverticula in the distal ileal loops. Probable diverticula in the second portion of the third portion of the duodenum. No pneumatosis intestinalis. No pneumoperitoneum. No ascites. No peripheral enhancing fluid collection in the peritoneal cavity. ABDOMINAL WALL: Fat-containing umbilical hernia and diastases abdominal rectus muscles in the periumbilical region. LYMPH NODES: Not enlarged lymph nodes in the mesenteric or retroperitoneal. VASCULAR: There is an thoracic aorta caliber 3.6 cm with a mixed plaques. Irregular shaped mixed plaques throughout the abdominal aorta and iliac arteries without aneurysm or dissection. PELVIC VISCERA: Multiple vascular clips in the presacral region. The uterus is absent. OSSEOUS STRUCTURES: Status post kyphoplasty/vertebroplasty procedure at L3. Old compression deformity, L4 and representing 80% volume loss. Grade 1 anterolisthesis L3-4 and L4-5 on a degenerative basis resulting in bilateral neuroforamina stenosis and central spinal canal stenosis. 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 CT/CT abdomen pelvis w IV con IMPRESSION: Diverticular disease versus diverticulosis and questionable superimposed noncomplicated diverticulitis in the sigmoid colon. Subsegmental wall thickening transverse colon suggesting acute to subacute inflammatory process/colitis. Hepatocellular disease/cirrhosis. Cholelithiasis. Stricture at the sphincter of Oddi should be considered. Atherosclerosis disease. Ectatic descending thoracic aorta. Bilateral renal cysts. Fat-containing umbilical hernia. Osteoporosis. Grade 1 anterolisthesis L3-4 and L4-5 resulting in central spinal canal and bilateral neuroforamina stenosis. Laboratory Tests 02/03/25 02/04/25 02/05/25 07:44 10:44 05:45 WBC 10.4 9.1 Estimated GFR 32 Total Bilirubin Direct Bilirubin AST ALT Alkaline Phosphatase B-Natriuretic Peptide TSH 02/17/25 02/24/25 11:47 14:20 WBC Estimated GFR Total Bilirubin 1.0 Direct Bilirubin 0.4 AST 19 ALT 15 Alkaline Phosphatase 80 B-Natriuretic Peptide 224 H TSH 2.12 Assessment & Plan Assessment & Plan (1) Nausea and vomiting: Code(s): R11.2 - Nausea with vomiting, unspecified Category: Medical (2) Gallstones: Comment: negative HIDA scan Code(s): K80.20 - Calculus of gallbladder without cholecystitis without obstruction Category: Medical (3) Constipation: Code(s): K59.00 - Constipation, unspecified Category: Medical (4) Colitis: Code(s): K52.9 - Noninfective gastroenteritis and colitis, unspecified Category: Medical Plan SHe continues on rabeprazole, <del>imipramine</del> <del>20mg</del> <del>and</del> <del>budesonide</del>. She is no longer taking the if her imipramine or budesonide. She has a complex set of symptoms over the past few months. I have not seen her since 06/2024, but in the interim she has been struggling more with constipation then her past diarrhea. Recently she presented to the ER and had a CAT scan, because she could not move her bowels after 10 days despite attempts at digital disimpaction, and it showed a large stool load with questionable diverticulitis without any amalia stranding or lymphadenopathy. They decided to treat her with Colace and lactulose after attempting lactulose and a soapsuds enema without return in the ER. She was also given Levaquin and Flagyl because of the question of diverticulitis. She presented the next day with the sensation of her throat closing. Uvulitis was confirmed on CT and she was admitted. She was treated with steroids with good resolution but this leaves on answered the question of whether or not this was an allergic reaction potentially to Levaquin or she fears to Colace, or whether this was a viral or bacterial infectious insult. She has a history of problems with her submandibular gland and this did show submandibular lymphadenopathy and/or inflammation on the subsequent CT of throat. She has an upcoming appointment with an ear nose throat specialist which is francis. Because of her history of fecal incontinence I am reluctant to give her too strong of a laxative agent. I am also reluctant to start Colace because we do not know if she had any kind of allergic reaction or to exactly what agent. She is taking Benefiber without good results. She is going to continue the Benefiber, I think she should add whole prunes, and because she is also having sustained constant nausea which makes me question gastroparesis interfering with peristalsis I am going to give her a trial of Reglan 5 mg 3 times a day. She was given Zofran in the past but I think Reglan is a better agent as it will address the nausea and if there is an underlying motility issue also will be beneficial for this. In the meantime her CAT scan of the abdomen and pelvis also showed gallstones so will get a HIDA scan. A gastric emptying study is also prudent given the symptoms set. I also think that we should order a colonoscopy as she has not had 1 since 2018. She did have a recent upper endoscopy for her nausea that was fairly unrevealing. Her primary care provider was Dr. Thao who is retired recently so she has not had good coordination of care in terms of all of her specialist and emergency room visits. 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 She denies any cardiac problems. There are no prior problems with anesthesia or sedation. There are no infectious disease problems. Return office 3 weeks. She has also been on levothyroxine with an unchanged dose for quite some time and her thyroids running in the high normal range so we may need to consider subclinical hypothyroidism. This is a very very long appointment as the patient really needs better coordination of care, I need to thoroughly review much of the background information, and she is at this time a bit frustrated and anxious about the entire situation. She needs frequent redirection to try to keep her on track in terms of the GI presentation because she is also having issues with recurrent asthma, and low back pain radiating to the buttock. Orders: Orders NM gastric emptying study Today K80.20 - Calculus of gallbladder without cholecystitis without obstruction, R11.2 - Nausea with vomiting, unspecified Colonoscopy - GI Use Only Today K52.9 - Noninfective gastroenteritis and colitis, unspecified NM hepatobiliary w pharm Today K80.20 - Calculus of gallbladder without cholecystitis without obstruction, R11.2 - Nausea with vomiting, unspecified Medications: New docusate sodium (Colace) 100 mg PO .DAILY WITH FOOD 30 caps 6RF 30 days K59.00 - Constipation, unspecified metoclopramide HCl (Reglan) 5 mg PO .TIDAC 90 tabs 3RF R11.2 - Nausea with vomiting, unspecified peg 3350-electrolytes 236-22.74-6.74 -5.86 gram (Golytely) until fecal effluent is clear; do not exceed a total volume of 2,000 mL 240 mL PO Q10M 4,000 mL 0RF 1 day Z12.11 - Encounter for screening for malignant neoplasm of colon Refilled rabeprazole (AcipHex) 20 mg PO DAILY 90 tabs 3RF K21.9 - Gastro-esophageal reflux disease without esophagitis, K22.10 - Ulcer of esophagus without bleeding, R13.10 - Dysphagia, unspecified Coding Level of Care Code Est Pt Level 4 (31411) Diagnoses Nausea and vomiting R11.2 Gallstones K80.20 Constipation K59.00 Colitis K52.9 Time Spent (min) 45
[2025-04-03 11:53] VITALS: BP 120/58; PULSE 75; BMI 39.2
--- OUTSIDE RECORDS SUMMARY | 2025-04-03 12:37 | XMS_ITS | Clinical Summary ---
Author Organization [facility] ity Address [address] [place] [address] Care Team Providers Care Linen Room Houseperson Name Role Phone John Thao MD Primary Care Provider [phone] Social History Tobacco Use Types Packs/Day Years [...] (2023-2 5 season) 2024 Influenza Vaccine (#1) 2025 HIB Vaccines Aged Out No longer [...] age to complete this topic Care Teams Linen Room Houseperson Relationship Specialty Start Date End Date John Thao MD [address] [place] [address] Dr Vernon [place] PCP - General Glass Rolling Machine Operator 10/31/18
--- OUTSIDE RECORDS SUMMARY | 2025-04-03 12:37 | XMS_ITS | Clinical Summary ---
Author Organization [facility] Address [address] [place] [address] Phone Care Team Providers Care Mental Health Nurse Name Role Phone John Thao MD Primary Care Provider [phone] Allergies Active Allergy Reactions Criticality Noted Date [...] PCV20, or PCV21) 11/02/2017 09/07/2017 Influenza Vaccine (#1) 2025 06/15/2020 Pneumococcal Vaccine: Peds ( 0 to 5 Years) and At-Risk Patients (6 to 49 Years) Discontinued 09/07/2017 Hepatitis B Vaccine Aged Out No longe r eligible based on patient's age to complete this topic Insurance [facility] Medicare Medicaid [place] Medicare [facility] Medicaid [place] Care Teams Mental Health Nurse Relationship Specialty Start Date End Date John Thao MD [address] [place] [address] [address] [place], [place] PCP - General 09/28/20
== END 2025-04-03 13:10 | disposition home or self-care (01) ==
LOC: HO.HGI 11:47
PROVIDERS: PCP Internal Medicine; Visit Provider Nurse Practitioner
DX: R11.2 Nausea with vomiting, unspecified (principal); K80.20 Calculus of gallbladder without cholecystitis without obstruction; K59.00 Constipation, unspecified; K52.9 Noninfective gastroenteritis and colitis, unspecified
CPT/HCPCS: 99214

== ENCOUNTER → 2025-04-03 11:46 | Outpatient (BNVA) | payer MEDICARE, SELFPAY | PROVIDERS: PCP Internal Medicine; Visit Provider Nurse Practitioner | DX: R19.5 Other fecal abnormalities (principal); K52.9 Noninfective gastroenteritis and colitis, unspecified; R13.10 Dysphagia, unspecified; K59.00 Constipation, unspecified; Z91.018 Allergy to other foods; K22.10 Ulcer of esophagus without bleeding; R11.2 Nausea with vomiting, unspecified; K80.20 Calculus of gallbladder without cholecystitis without obstruction; Z79.891 Long term (current) use of opiate analgesic; Z79.890 Hormone replacement therapy; Z79.899 Other long term (current) drug therapy | CPT/HCPCS: 99212 ==

== ENCOUNTER 2025-04-10 09:06 | Outpatient (AMB) | payer MEDICARE, SELFPAY ==
--- NOTE | 2025-04-10 09:08 | A.OFFVIS_ITS ---
Vital Signs 04/10/25 09:17 Height 4 ft 11 in Weight 194 lb 0.108 oz BMI 39.2 BP 136/81 Blood Pressure Location Lt brachial Position Sitting Pulse 79 Intake Visit Reasons: yearly breast exam Intake Note: Patient is seen in office for yearly breast exam. Pt c/o: right axilla sore at times, feels a lump mm:12/11/24 mm sched: 12/17/25 Nuclear Radiation Engineer Required: No High Density Press Operator: High Density Press Operator Present Accompanied by: Self / Same As Patient Allergies gabapentin Allergy (Severe, Verified 04/10/25 09:14) severe urinary incont. codeine (CODEINE) Allergy (Intermediate, Verified 04/10/25 09:14) Rash fish derived (FISH) Allergy (Intermediate, Verified 04/10/25 09:14) HIVES Iodinated Contrast Media (IV Dye, Iodine Containing) Allergy (Intermediate, Verified 04/10/25 09:14) HIVES nitrofurantoin (Nitrofurantoin) Allergy (Intermediate, Verified 04/10/25 09:14) HIVES Sulfa (Sulfonamide Antibiotics) (SULFA (SULFONAMIDE ANTIBIOTICS)) Allergy (Intermediate, Verified 04/10/25 09:14) RASH valsartan (From DIOVAN) Allergy (Intermediate, Verified 04/10/25 09:14) HIVES vancomycin (VANCOMYCIN) Allergy (Intermediate, Verified 04/10/25 09:14) RASH Penicillins (PENICILLINS) Allergy (Mild, Verified 04/10/25 09:14) RASH adhesive (ADHESIVE) Allergy (Unknown, Verified 04/10/25 09:14) UNKNOWN hydrocodone (Vicodin) Allergy (Unknown, Verified 04/10/25 09:14) Unknown ibuprofen (IBUPROFEN) Adverse Reaction (Unknown, Verified 04/10/25 09:14) UNKNOWN Medication List - Last Reconciled 04/10/25 by Shon Marmolejo MD albuterol sulfate 90 mcg/actuation 2 puffs inhalation Q6H PRN albuterol sulfate 2.5 mg inhalation Q4H PRN budesonide DR-ER 6 mg (2 x 3 mg) PO DAILY docusate sodium (Colace) 100 mg PO .DAILY WITH FOOD 30 days hydrochlorothiazide 25 mg PO DAILY ipratropium-albuterol 0.5 mg-3 mg(2.5 mg base)/3 mL 3 mL inhalation Q6H PRN 30 days levothyroxine 50 mcg PO DAILY@0600 lorazepam (Ativan) 0.5 mg PO BEDTIME PRN 30 days metoclopramide HCl (Reglan) 5 mg PO .TIDAC metoprolol succinate ER 50 mg PO DAILY ondansetron HCl 4 mg PO DAILY PRN oxycodone 5 mg PO QID PRN peg 3350-electrolytes 236-22.74-6.74 -5.86 gram (Golytely) 240 mL PO Q10M 1 day rabeprazole (AcipHex) 20 mg PO DAILY tramadol 50 mg PO BID wheat dextrin (Benefiber Clear Sugar Free(dextrin)) 1.5 grams PO BID HPI Comments Details: Joelle Keller returns today for follow-up visit following an invasive ductal carcinoma of the left breast. She was noted to have a suspicious density on a ro utine mammogram, and subsequently underwent stereotactic guided biopsy which revealed an area of atypical ductal hyperplasia bordering on DCIS. She subsequently underwent a lumpectomy with needle localization on 06/01/2015, the results of which revealed a 1.2 cm invasive ductal carcinoma with a single focus of invasive tumor, grade 1, ER/WY positive, HER2 Nancy inconclusive, with DCIS, negative margins. A sentinel node biopsy on 06/26/2015 was then performed which produced two lymph nodes negative for carcinoma ([id number]). She completed radiation therapy in August 2015 and took 5 years of tamoxifen.? She stopped her tamoxifen in September 2020. She continues to have right neck pain extending down into her arm and notes pain in the right breast. 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 She mainly complains of bowel changes with alternating constipation and diarrhea. She is being followed in the GI clinic for this. Her most recent mammogram of 12/11/2024 revealed grouped punctate calcifications in the left breast which are unchanged. Follow up in 1 year with a diagnostic mammogram was recommended. 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 difficile colitis Breast cancer Surgical History History of esophagogastroduodenoscopy (EGD) H/O colonoscopy H/O lymph node biopsy Hx of cataract surgery History of tonsillectomy and adenoidectomy H/O hysterectomy for benign disease History of total bilateral knee replacement H/O kyphoplasty Family History Father No problems noted. Mother Breast cancer Sister Breast cancer Social History Household Members: Children Housing: House Are you a primary acute care occupational therapist to a significant other at home: No Do you presently have visiting nurse or other home services: No Alcohol intake: never Patient Tobacco Use Status: Former Tobacco user Substance Use Type: Marijuana Advance Directives Date on File: 02/05/25 service: No Current occupational status: retired Cognitive needs: No Hearing needs: No Vision needs: Yes (rx glasses) Review of Systems Const All systems reviewed & are unremarkable except as noted in HPI and below Eyes Reports no additional complaints ENT Reports no additional complaints Card Denies chest pain, Denies irregular heart rhythm and Denies leg edema Resp Reports as per HPI GI Reports bloating, Reports change in bowel habits, Reports constipation and Reports diarrhea Reports no additional complaints and Denies nipple discharge Musc Details: Shoulder pain as noted in HPI Reports abnormal gait (Needs the walker to ambulate) and Reports back pain Skin/Breast Reports system reviewed and no additional complaints, except as documented, Denies breast swelling, Denies breast skin changes, Reports breast pain (Right breast at the upper outer quadrant), Denies breast mass and Denies nipple discharge Neuro Reports abnormal gait (Needs the walker to ambulate) Psych Reports no additional complaints Endo Reports no additional complaints Physical Exam Vital Signs: Last Vital Signs Pulse 79 04/10/25 09:17 BP 136/81 04/10/25 09:17 BMI result Body Mass Index 39.2 Const General: cooperative, healthy appearing, comfortable, no acute distress, well developed, alert and awake HEENT Head: Yes normocephalic and Yes atraumatic Chest Other: Left breast: No skin change, well-healed incision in the upper outer quadrant, no nipple retraction, no nipple discharge, no palpable mass, no enlarged lymph nodes. Right breast: No skin change, no nipple retraction, no nipple discharge, no palpable mass, palpable 2-3 cm enlarged lymph node noted in the right axilla, tender to palpation. Resp Effort & Inspection: normal respiratory effort, no cough and no stridor GI Inspection: Yes normal to inspection Skin General skin exam: no rashes or lesions noted Extrem Other: No arm edema Assessment & Plan Assessment & Plan (1) Breast cancer: Code(s): C50.919 - Malignant neoplasm of unspecified site of unspecified female breast Category: Medical Qualifiers: Breast location: upper outer quadrant of breast Estrogen receptor status: positive Laterality: left Patient sex: female Qualified Code(s): C50.412 - Malignant neoplasm of upper-outer quadrant of left female breast; Z17.0 - Estrogen receptor positive status [ER+] Plan: 84-year-old female patient with a previous history of left breast lumpectomy and sentinel node biopsy for invasive ductal carcinoma, P T1 a N0 M0, ER/WY positive, now with 9 years following surgery. Examination today revealed tenderness in the right breast at the upper outer quadrant and axilla with a palpable mass suggestive of lymphadenopathy. I recommended further evaluation with an ultrasound of the axilla. I will call her with the results of this study when available. No other suspicious findings were noted on examination. She will follow up in 1 year, sooner PRN. (2) Axillary lymphadenopathy: Code(s): R59.0 - Localized enlarged lymph nodes Category: Medical Plan: Ultrasound requested. Orders: Orders US breast RT limited Today C50.412 - Malignant neoplasm of upper-outer quadrant of left female breast, R59.0 - Localized enlarged lymph nodes, Z17.0 - Estrogen receptor positive status [ER+] Coding Level of Care Code Est Pt Level 3 (72951) Complex EM visit Add On G2211 Diagnoses Malignant neoplasm of upper-outer quadrant of left breast in female, estrogen receptor positive C50.412; Z17.0 Breast location: upper outer quadrant of breast Estrogen receptor status: positive Laterality: left Patient sex: female Axillary lymphadenopathy R59.0
[2025-04-10 09:17] VITALS: BP 136/81; PULSE 79; BMI 39.2
--- OUTSIDE RECORDS SUMMARY | 2025-04-10 09:33 | XMS_ITS | Clinical Summary ---
Author Organization [facility] it[facility] Address [address] [place] [id number] Care Team Providers Care Marketing Automation Specialist Name Role Phone John Thao MD Primary Care Provider [phone] Social History Tobacco Use Types Packs/Day Years [...] 2015 COVID-19 Vaccine (2023-2 5 season) 2024 Depression Screening 09/18/2024 Influenza Vaccine (#1) 2025 HIB Vaccines Aged [...] age to complete this topic Care Teams Marketing Automation Specialist Relationship Specialty Start Date End Date John Thao MD [address] [place] [address] Dr Vernon [place] PCP - General Reduction Furnace Operator Helper 10/31/18
--- OUTSIDE RECORDS SUMMARY | 2025-04-10 09:33 | XMS_ITS | Clinical Summary ---
Author Organization [facility] Address [address] [place] [address] Phone Care Team Providers Care Communication Center Operator Name Role Phone John Thao MD Primary Care Provider [phone] Allergies Active Allergy Reactions Criticality Noted Date [...] patient's age to complete this topic Insurance [facility] Medicare Medicaid [place] Medicare [facility] Medicaid [place] Care Teams Communication Center Operator Relationship Specialty Start Date End Date John Thao MD [address] [place] [address] [address] [place], [place] PCP - General 09/28/20
== END 2025-04-10 09:31 | disposition home or self-care (01) ==
LOC: HO.HGS 09:07
PROVIDERS: PCP Internal Medicine; Visit Provider Surgery
DX: C50.412 Malignant neoplasm of upper-outer quadrant of left female breast (principal); Z17.0 Estrogen receptor positive status [ER+]; R59.0 Localized enlarged lymph nodes
CPT/HCPCS: 99213; G2211

== ENCOUNTER → 2025-04-10 09:06 | Outpatient (BNVA) | payer MEDICARE, SELFPAY | PROVIDERS: PCP Internal Medicine; Visit Provider Surgery | DX: Z08 Encounter for follow-up examination after completed treatment for malignant neoplasm (principal); Z85.3 Personal history of malignant neoplasm of breast; R59.0 Localized enlarged lymph nodes | CPT/HCPCS: 99212 ==

== ENCOUNTER 2025-04-24 15:20 | Outpatient (AMB) | payer MEDICARE, SELFPAY ==
--- NOTE | 2025-04-24 15:21 | MHC.PC.OV ---
Vital Signs 04/24/25 15:48 04/24/25 15:56 Height 4 ft 11 in Weight 194 lb BP 156/78 H Blood Pressure Location Lt brachial Position Sitting Respiration 18 Pulse 69 Pulse Source Pulse Oximeter Temp 97.5 F Temp Source Temporal Artery Scan Pulse Oximetry (%) 98 Oxygen Delivery Method Room Air Intake Visit Reasons: infection, rt leg near foot Croke pt Log Rafter Required: No Accompanied by: Son Allergies gabapentin Allergy (Severe, Verified 04/24/25 15:22) severe urinary incont. codeine (CODEINE) Allergy (Intermediate, Verified 04/24/25 15:22) Rash fish derived (FISH) Allergy (Intermediate, Verified 04/24/25 15:22) HIVES Iodinated Contrast Media (IV Dye, Iodine Containing) Allergy (Intermediate, Verified 04/24/25 15:22) HIVES nitrofurantoin (Nitrofurantoin) Allergy (Intermediate, Verified 04/24/25 15:22) HIVES Sulfa (Sulfonamide Antibiotics) (SULFA (SULFONAMIDE ANTIBIOTICS)) Allergy (Intermediate, Verified 04/24/25 15:22) RASH valsartan (From DIOVAN) Allergy (Intermediate, Verified 04/24/25 15:22) HIVES vancomycin (VANCOMYCIN) Allergy (Intermediate, Verified 04/24/25 15:22) RASH Penicillins (PENICILLINS) Allergy (Mild, Verified 04/24/25 15:22) RASH adhesive (ADHESIVE) Allergy (Unknown, Verified 04/24/25 15:22) UNKNOWN hydrocodone (Vicodin) Allergy (Unknown, Verified 04/24/25 15:22) Unknown ibuprofen (IBUPROFEN) Adverse Reaction (Unknown, Verified 04/24/25 15:22) UNKNOWN Tobacco use date assessed: 12/25/24 Dental Screening Dental Screen Date: 12/25/24 HPI HPI Comments History of Present Illness Details 84 year old female with history of asthma-copd overlap, htn, hypothyroidism presenting for follow up CV: on hctz, metoprolol. BP 156/78. Denies chest pain, dyspnea Hypothyroid: on levothyroxine heme/onc: History of breast cancer. follows with Dr Beauchamp. 1.2 cm invasive ductal carcinoma with a single focus of invasive tumor, grade 1, ER/SD positive, HER2 Nancy inconclusive, with DCIS, negative margins. A sentinel node biopsy on 06/26/2015 was then performed which produced two lymph nodes negative for carcinoma ([id number]). She completed radiation therapy in August 2015 and took 5 years of tamoxifen ENT-benign parotid masses. Dysphagia GI: Dysphagia-on aciphex. Frequent nausea. Has both reglan and ondansetron. She believes the zofran is working more effectively. Has upcoming HIDA, gastric empyting, f/up with GI scheduled. : Endorses anxiety and depressive symptoms. She tried ativan prn but this was too sedating for her. COPD/Asthma-follows with pulm. Upcoming visit [facility] see HPI PHYSICAL EXAM: GENERAL: Alert and oriented x 3. NAD EYES: EOMI. Anicteric. HENT: Moist mucous membranes. No scleral icterus. No cervical lymphadenopathy. LUNGS: Clear to auscultation bilaterally. CARDIOVASCULAR: Regular rate and rhythm. No murmur. No JVD. ABDOMEN: Soft, non-tender +bs EXTREMITIES: No edema. Non-tender. SKIN: No rashes or lesions. Warm. NEUROLOGIC: No focal neurological deficits. CN II-XII grossly intact PSYCHIATRIC: Cooperative. 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 difficile colitis Breast cancer Surgical History History of esophagogastroduodenoscopy (EGD) H/O colonoscopy H/O lymph node biopsy Hx of cataract surgery History of tonsillectomy and adenoidectomy H/O hysterectomy for benign disease History of total bilateral knee replacement H/O kyphoplasty Family History Father No problems noted. Mother Breast cancer Sister Breast cancer Social History Household Members: Children Housing: House Are you a primary career resource technician to a significant other at home: No Do you presently have visiting nurse or other home services: No Alcohol intake: never Patient Tobacco Use Status: Former Tobacco user e-Cigarette/Vaping Use: Never Used Substance Use Type: Marijuana Advance Directives Date on File: 02/05/25 service: No Current occupational status: retired Cognitive needs: No Hearing needs: No Vision needs: Yes (rx glasses) Questionnaire Thrive Questionnaire Date Thrive assessed: 02/05/25 ALLI-7 AMB Questionnaire ALLI-7 Date ALLI - 7 assessed: 12/25/24 Source: Developed by Drs. Julian Martinez, Daya Jose, Jossue Izaguirre and colleagues, with an educational venkatesh from [employer]. Physical exam (Primary Care) Vital Signs: Last Vital Signs Temp 97.5 F 04/24/25 15:56 Pulse 69 04/24/25 15:56 Resp 18 04/24/25 15:56 BP 156/78 H 04/24/25 15:56 Pulse Ox 98 04/24/25 15:56 Oxygen Delivery Method Room Air 04/24/25 15:56 Tobacco/Smoking Status: Tobacco use Status Tobacco use date assessed 12/25/24 04/24/25 15:24 Patient Tobacco Use Status Former Tobacco user 04/24/25 15:24 e-Cigarette/Vaping Use Never Used 04/24/25 15:24 Thrive Assessment: Date of Thrive Assessment Date Thrive assessed 02/05/25 04/24/25 15:24 Coding Level of Care Code Est Pt Level 4 (19536) Diagnoses Primary hypertension I10 Hypertension type: primary hypertension High cholesterol E78.00 Hypothyroidism, unspecified type E03.9 Hypothyroidism type: unspecified Asthma-COPD overlap syndrome J44.9 Anxiety F41.9 Assessment & Plan Assessment & Plan (1) Hypertension: Code(s): I10 - Essential (primary) hypertension Category: Medical Qualifiers: Hypertension type: primary hypertension Qualified Code(s): I10 - Essential (primary) hypertension (2) High cholesterol: Code(s): E78.00 - Pure hypercholesterolemia, unspecified Category: Medical (3) Hypothyroidism: Code(s): E03.9 - Hypothyroidism, unspecified Category: Medical Qualifiers: Hypothyroidism type: unspecified Qualified Code(s): E03.9 - Hypothyroidism, unspecified (4) Asthma-COPD overlap syndrome: Code(s): J44.9 - Chronic obstructive pulmonary disease, unspecified Category: Medical (5) Anxiety: Code(s): F41.9 - Anxiety disorder, unspecified Category: Medical Plan 84 y/o complex medical history presenting for follow up Nausea, dyspepsia-upcoming GI follow up. She is confused by all her medications. Told her to hold reglan c/w zofran, aciphex Hypothyroid-stable on levothyroxine Anxiety is high. She has tried and did not tolerate fast acting anxiolytics. trial zoloft. Has f/up with pcp Medications: New sertraline 25 mg PO DAILY 45 tabs 1RF azithromycin For 250 mg dose pack: take 500 mg today (day 1), then 250 mg for 4 days (days 2-5) PO 6 tabs 0RF Changed From ondansetron HCl 4 mg PO DAILY PRN 30 tabs 0RF for nausea/vomiting To ondansetron HCl 4 mg PO Q8H PRN 90 tabs 3RF for nausea/vomiting Discontinued lorazepam (Ativan) Discontinued Reason: Doctor's Order 0.5 mg PO BEDTIME 30 days PRN 30 tabs 2RF anxiety/INSOMNIA metoclopramide HCl (Reglan) Discontinued Reason: Doctor's Order 5 mg PO .TIDAC 90 tabs 3RF R11.2 - Nausea with vomiting, unspecified
--- OUTSIDE RECORDS SUMMARY | 2025-04-24 15:22 | XMS_ITS | Clinical Summary ---
Author Organization [facility] Address [address] [place] [id number] Care Team Providers Care Roll Forming Machine Operator Name Role Phone John Thao MD Primary Care Provider [phone] Social History Tobacco Use Types Packs/Day Years [...] age to complete this topic Care Teams Roll Forming Machine Operator Relationship Specialty Start Date End Date John Thao MD [address] [place] [address] Dr Vernon [place] PCP - General Crate Builder 10/31/18
--- OUTSIDE RECORDS SUMMARY | 2025-04-24 15:22 | XMS_ITS | Clinical Summary ---
Author Organization [facility] Address [address] [place] [phone] Phone Care Team Providers Care Explosives Mixer Operator Name Role Phone John Thao MD Primary Care Provider [phone] Allergies Active Allergy Reactions Criticality Noted Date [...] complete this topic Insurance [facility] Medicare Medicaid [place] Medicare [facility] Medicaid [place] Care Teams Explosives Mixer Operator Relationship Specialty Start Date End Date John Thao MD [address] [place] [address] [address] [place], [place] PCP - General 09/28/20
[2025-04-24 15:56] VITALS: BP 156/78; PULSE 69; RESP 18; TEMP 36.4; O2SAT 98
== END 2025-04-24 16:29 | disposition home or self-care (01) ==
LOC: HO.HMCHD 15:20
PROVIDERS: Visit Provider Internal Medicine
DX: I10 Essential (primary) hypertension (principal); E78.00 Pure hypercholesterolemia, unspecified; E03.9 Hypothyroidism, unspecified; J44.9 Chronic obstructive pulmonary disease, unspecified; F41.9 Anxiety disorder, unspecified

== ENCOUNTER → 2025-04-24 15:20 | Outpatient (BNVA) | payer MEDICARE, SELFPAY | PROVIDERS: Visit Provider Internal Medicine | DX: I10 Essential (primary) hypertension (principal); E78.00 Pure hypercholesterolemia, unspecified; E03.9 Hypothyroidism, unspecified; J44.89 Other specified chronic obstructive pulmonary disease; F41.9 Anxiety disorder, unspecified; Z79.899 Other long term (current) drug therapy | CPT/HCPCS: 99212 ==

== ENCOUNTER 2025-05-01 10:43 | Outpatient (AMB) | payer MEDICARE, SELFPAY ==
--- NOTE | 2025-05-01 10:48 | MHC.OFFVIS ---
Vital Signs 05/01/25 10:52 Height 4 ft 11 in Weight 194 lb BMI 39.2 BP 152/69 H Blood Pressure Location Lt brachial Position Sitting Pulse 73 Intake Visit Reasons: eval reglan Intake Note: Joelle returns to in office in follow up to evaluate Reglan. CC: Patient states that she still is having nausea and trouble with her bowels. Rn Wound Care Required: No Accompanied by: Self / Same As Patient Allergies gabapentin Allergy (Severe, Verified 05/01/25 11:02) severe urinary incont. codeine (CODEINE) Allergy (Intermediate, Verified 05/01/25 11:02) Rash fish derived (FISH) Allergy (Intermediate, Verified 05/01/25 11:02) HIVES Iodinated Contrast Media (IV Dye, Iodine Containing) Allergy (Intermediate, Verified 05/01/25 11:02) HIVES nitrofurantoin (Nitrofurantoin) Allergy (Intermediate, Verified 05/01/25 11:02) HIVES Sulfa (Sulfonamide Antibiotics) (SULFA (SULFONAMIDE ANTIBIOTICS)) Allergy (Intermediate, Verified 05/01/25 11:02) RASH valsartan (From DIOVAN) Allergy (Intermediate, Verified 05/01/25 11:02) HIVES vancomycin (VANCOMYCIN) Allergy (Intermediate, Verified 05/01/25 11:02) RASH Penicillins (PENICILLINS) Allergy (Mild, Verified 05/01/25 11:02) RASH adhesive (ADHESIVE) Allergy (Unknown, Verified 05/01/25 11:02) UNKNOWN hydrocodone (Vicodin) Allergy (Unknown, Verified 05/01/25 11:02) Unknown ibuprofen (IBUPROFEN) Adverse Reaction (Unknown, Verified 05/01/25 11:02) UNKNOWN HPI HPI eval reglan: Details: Assessment & Plan (1) Nausea and vomiting: Code(s): R11.2 - Nausea with vomiting, unspecified Category: Medical (2) Gallstones: Comment: negative HIDA scan Code(s): K80.20 - Calculus of gallbladder without cholecystitis without obstruction Category: Medical (3) Constipation: Code(s): K59.00 - Constipation, unspecified Category: Medical (4) Colitis: Code(s): K52.9 - Noninfective gastroenteritis and colitis, unspecified Category: Medical Plan SHe continues on rabeprazole, imipramine 20mg and budesonide. She is no longer taking the if her imipramine or budesonide. She has a complex set of symptoms over the past few months. I have not seen her since 06/2024, but in the interim she has been struggling more with constipation then her past diarrhea. Recently she presented to the ER and had a CAT scan, because she could not move her bowels after 10 days despite attempts at digital disimpaction, and it showed a large stool load with questionable diverticulitis without any amalia stranding or lymphadenopathy. They decided to treat her with Colace and lactulose after attempting lactulose and a soapsuds enema without return in the ER. She was also given Levaquin and Flagyl because of the question of diverticulitis. She presented the next day with the sensation of her throat closing. Uvulitis was confirmed on CT and she was admitted. She was treated with steroids with good resolution but this leaves on answered the question of whether or not this was an allergic reaction potentially to Levaquin or she fears to Colace, or whether this was a viral or bacterial infectious insult. She has a history of problems with her submandibular gland and this did show submandibular lymphadenopathy and/or inflammation on the subsequent CT of throat. She has an upcoming appointment with an ear nose throat specialist which is francis. Because of her history of fecal incontinence I am reluctant to give her too strong of a laxative agent. I am also reluctant to start Colace because we do not know if she had any kind of allergic reaction or to exactly what agent. She is taking Benefiber without good results. She is going to continue the Benefiber, I think she should add whole prunes, and because she is also having sustained constant nausea which makes me question gastroparesis interfering with peristalsis I am going to give her a trial of Reglan 5 mg 3 times a day. She was given Zofran in the past but I think Reglan is a better agent as it will address the nausea and if there is an underlying motility issue also will be beneficial for this. In the meantime her CAT scan of the abdomen and pelvis also showed gallstones so will get a HIDA scan. A gastric emptying study is also prudent given the symptoms set. I also think that we should order a colonoscopy as she has not had 1 since 2017. She did have a recent upper endoscopy for her nausea that was fairly unrevealing. Her primary care provider was Dr. Thao who is retired recently so she has not had good coordination of care in terms of all of her specialist and emergency room visits. 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 She denies any cardiac problems. There are no prior problems with anesthesia or sedation. There are no infectious disease problems. Return office 3 weeks. She has also been on levothyroxine with an unchanged dose for quite some time and her thyroids running in the high normal range so we may need to consider subclinical hypothyroidism. This is a very very long appointment as the patient really needs better coordination of care, I need to thoroughly review much of the background information, and she is at this time a bit frustrated and anxious about the entire situation. She needs frequent redirection to try to keep her on track in terms of the GI presentation because she is also having issues with recurrent asthma, and low back pain radiating to the buttock. Orders: Orders NM gastric emptying study Today K80.20 - Calculus of gallbladder without cholecystitis without obstruction, R11.2 - Nausea with vomiting, unspecified Colonoscopy - GI Use Only Today K52.9 - Noninfective gastroenteritis and colitis, unspecified NM hepatobiliary w pharm Today K80.20 - Calculus of gallbladder without cholecystitis without obstruction, R11.2 - Nausea with vomiting, unspecified Medications: New docusate sodium (Colace) 100 mg PO .DAILY WITH FOOD 30 caps 6RF 30 days K59.00 - Constipation, unspecified metoclopramide HCl (Reglan) 5 mg PO .TIDAC 90 tabs 3RF R11.2 - Nausea with vomiting, unspecified peg 3350-electrolytes 236-22.74-6.74 -5.86 gram (Golytely) until fecal effluent is clear; do not exceed a total volume of 2,000 mL 240 mL PO Q10M 4,000 mL 0RF 1 day Z12.11 - Encounter for screening for malignant neoplasm of colon Refilled rabeprazole (AcipHex) 20 mg PO DAILY 90 tabs 3RF K21.9 - Gastro-esophageal reflux disease without esophagitis, K22.10 - Ulcer of esophagus without bleeding, R13.10 - Dysphagia, unspecified Assessment & Plan (1) Nausea and vomiting: Code(s): R11.2 - Nausea with vomiting, unspecified Category: Medical (2) Gallstones: Comment: negative HIDA scan Code(s): K80.20 - Calculus of gallbladder without cholecystitis without obstruction Category: Medical (3) Constipation: Code(s): K59.00 - Constipation, unspecified Category: Medical (4) Colitis: Code(s): K52.9 - Noninfective gastroenteritis and colitis, unspecified Category: Medical Plan SHe continues on rabeprazole, <del>imipramine</del> <del>20mg</del> <del>and</del> <del>budesonide</del>. She is no longer taking the if her imipramine or budesonide. She has a complex set of symptoms over the past few months. I have not seen her since 06/2024, but in the interim she has been struggling more with constipation then her past diarrhea. Recently she presented to the ER and had a CAT scan, because she could not move her bowels after 10 days despite attempts at digital disimpaction, and it showed a large stool load with questionable diverticulitis without any amalia stranding or lymphadenopathy. They decided to treat her with Colace and lactulose after attempting lactulose and a soapsuds enema without return in the ER. She was also given Levaquin and Flagyl because of the question of diverticulitis. She presented the next day with the sensation of her throat closing. Uvulitis was confirmed on CT and she was admitted. She was treated with steroids with good resolution but this leaves on answered the question of whether or not this was an allergic reaction potentially to Levaquin or she fears to Colace, or whether this was a viral or bacterial infectious insult. She has a history of problems with her submandibular gland and this did show submandibular lymphadenopathy and/or inflammation on the subsequent CT of throat. She has an upcoming appointment with an ear nose throat specialist which is francis. Because of her history of fecal incontinence I am reluctant to give her too strong of a laxative agent. I am also reluctant to start Colace because we do not know if she had any kind of allergic reaction or to exactly what agent. She is taking Benefiber without good results. She is going to continue the Benefiber, I think she should add whole prunes, and because she is also having sustained constant nausea which makes me question gastroparesis interfering with peristalsis I am going to give her a trial of Reglan 5 mg 3 times a day. She was given Zofran in the past but I think Reglan is a better agent as it will address the nausea and if there is an underlying motility issue also will be beneficial for this. In the meantime her CAT scan of the abdomen and pelvis also showed gallstones so will get a HIDA scan. A gastric emptying study is also prudent given the symptoms set. I also think that we should order a colonoscopy as she has not had 1 since 2018. She did have a recent upper endoscopy for her nausea that was fairly unrevealing. Her primary care provider was Dr. Thao who is retired recently so she has not had good coordination of care in terms of all of her specialist and emergency room visits. 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 She denies any cardiac problems. There are no prior problems with anesthesia or sedation. There are no infectious disease problems. Return office 3 weeks. She has also been on levothyroxine with an unchanged dose for quite some time and her thyroids running in the high normal range so we may need to consider subclinical hypothyroidism. This is a very very long appointment as the patient really needs better coordination of care, I need to thoroughly review much of the background information, and she is at this time a bit frustrated and anxious about the entire situation. She needs frequent redirection to try to keep her on track in terms of the GI presentation because she is also having issues with recurrent asthma, and low back pain radiating to the buttock. Orders: Orders NM gastric emptying study Today K80.20 - Calculus of gallbladder without cholecystitis without obstruction, R11.2 - Nausea with vomiting, unspecified Colonoscopy - GI Use Only Today K52.9 - Noninfective gastroenteritis and colitis, unspecified NM hepatobiliary w pharm Today K80.20 - Calculus of gallbladder without cholecystitis without obstruction, R11.2 - Nausea with vomiting, unspecified Medications: New docusate sodium (Colace) 100 mg PO .DAILY WITH FOOD 30 caps 6RF 30 days K59.00 - Constipation, unspecified metoclopramide HCl (Reglan) 5 mg PO .TIDAC 90 tabs 3RF R11.2 - Nausea with vomiting, unspecified peg 3350-electrolytes 236-22.74-6.74 -5.86 gram (Golytely) until fecal effluent is clear; do not exceed a total volume of 2,000 mL 240 mL PO Q10M 4,000 mL 0RF 1 day Z12.11 - Encounter for screening for malignant neoplasm of colon Refilled rabeprazole (AcipHex) 20 mg PO DAILY 90 tabs 3RF K21.9 - Gastro-esophageal reflux disease without esophagitis, K22.10 - Ulcer of esophagus without bleeding, R13.10 - Dysphagia, unspecified Gastric emptying study 05/02/2025 HIDA scan 05/07/2025 Colonoscopy Biopsy TODAY'S VISIT The patient is an 84-year-old female presenting with significant constipation, nausea, and vomiting. She has a known history of chronic Gastroesophageal Reflux Disease (GERD) and diarrhea-predominant Irritable Bowel Syndrome (IBS), historically managed with Imipramine and Budesonide, now discontinued. The constipation has become severe enough to require Emergency Room visits, And she is practicing self digital disimpaction. She reports increasing anxiety and memory problems. She does not remember if she started the metoclopramide or not and her primary care providers prescribing Zofran. it also appears that her primary care provider maybe prescribing PPIs and the patient is really uncertain of what GI medicine she is taking. She attempts to manage her constipation by consuming prunes and using Benefiber, though these have provided limited relief. Her current fluid intake is sufficient as she drinks around 9 6-8 oz glasses of water a day. today she is telling me that she occasionally has softer stools with a return of her fecal incontinence. This was not clear to me at the last visit. In the past there has been a question of whether she has some rectal insufficiency or even a rectocele contributing to her symptoms. She says she has been told in the past she has a fishhook which I think she means a fissure and does not make much sense to me. The patient's symptoms also include constant nausea, disrupted sleep, and restless legs, impacting her overall quality of life. The pain management includes Tramadol and Oxycodone, which might contribute to the constipation issue. She is under nephrology care for chronic kidney disease. A recent CAT scan discovered gallstones and we have a HIDA scan coming up to see if this is part of her symptom presentation. She also has an upcoming gastric emptying study. She has had multiple upper endoscopies in the past for this same problem over the years. She mentions that her cat scratched her and she is being treated with Zithromax for scratch scratch fever. I think she is probably being treated more for lower extremity cellulitis, she is complaining of weeping from a very small half a cm wound. This is located about 2 in above the ankle on the lateral side of the right lower leg. The patient reports a limited diet due to frequent nausea and vomiting. She eats cautiously due to the risk of exacerbating symptoms. She consumes prunes daily to help manage constipation, along with Benefiber. Fluid intake is reportedly adequate, as water increases her nausea; she estimates drinking approximately 8-12 ounces of water nine times a day. She supplements with occasional sips of Pedialyte. - Stop taking Metoclopramide immediately. - Continue Docusate daily for stool softening. - Eat three prunes every day. - Take Benefiber as directed. - Choose a magnesium supplement or milk of magnesia to help with constipation. - Stay as hydrated as possible; aim for consistent fluid intake. - Continue taking your prescribed nausea medication: Ondansetron. - Attend the scheduled HIDA scan and gastric emptying study. - Bring all prescription and [id number] medications to the next appointment. - Watch for worsening symptoms, and contact the office if diarrhea or severe pain occurs. 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 difficile colitis Breast cancer Surgical History History of esophagogastroduodenoscopy (EGD) H/O colonoscopy H/O lymph node biopsy Hx of cataract surgery History of tonsillectomy and adenoidectomy H/O hysterectomy for benign disease History of total bilateral knee replacement H/O kyphoplasty Family History Father No problems noted. Mother Breast cancer Sister Breast cancer Social History Household Members: Children Housing: House Are you a primary acute care surgeon to a significant other at home: No Do you presently have visiting nurse or other home services: No Alcohol intake: never Patient Tobacco Use Status: Former Tobacco user e-Cigarette/Vaping Use: Never Used Substance Use Type: Marijuana Advance Directives Date on File: 02/05/25 service: No Current occupational status: retired Cognitive needs: No Hearing needs: No Vision needs: Yes (rx glasses) Review of Systems Const Denies fatigue, Denies fever(s), Denies night sweats, Denies poor appetite and Denies weight loss Eyes Details: Glasses Reports requires corrective lenses ENT Reports Normal hearing present, Denies dental pain, Denies dysphagia, Denies hearing loss, Denies mouth pain, Denies odynophagia, Denies throat swelling, Denies tongue swelling and Reports other (Dentition adequate) Card Reports no additional complaints Resp Reports no additional complaints GI Details: Rectal incontinence with softer stools Denies abdominal pain, Denies melena, Denies bloating, Denies hematochezia, Reports constipation, Denies GI cramping, Denies dysphagia, Denies excessive flatus, Denies early satiety, Reports dyspepsia, Reports heartburn, Denies diarrhea, Reports loose stools, Denies nausea, Denies odynophagia, Denies vomiting and Denies hematemesis Musc Reports abnormal gait, Reports back pain, Reports myalgias, Reports arthralgias and Reports muscle cramps Skin/Breast Denies pruritus, Denies lesions, Denies rash, Reports wounds (Small cat scratch) and Denies jaundice Neuro Reports Normal hearing present, Denies Abnormal speech present, Reports abnormal gait, Reports memory loss and Reports restless legs Psych Reports anxiety, Reports depression, Reports irritability and Reports memory loss Endo Denies fatigue Aller/Immun Denies throat swelling and Denies tongue swelling Physical Exam Vital Signs: Last Vital Signs Pulse 73 05/01/25 10:52 BP 152/69 H 05/01/25 10:52 BMI result Body Mass Index 39.2 Const General: cooperative, healthy appearing and no acute distress Nutritional Appearance: well nourished and obese Orientation/consciousness: oriented to person, oriented to place and oriented to time Limitations: No language barrier, ambulation with cane and ambulation with walker HEENT Head: Yes normocephalic and Yes atraumatic Eyes General: appearance normal, both eyes and all related structures Pupils: Equal, round and reactive pupils present Neck Neck: Yes normal visual inspection and Yes no lymphadenopathy Thyroid: Thyroid normal Resp Effort & Inspection: normal respiratory effort and able to speak in complete sentences Auscultation: clear to auscultation bilaterally Cardio Rate: regular rate Rhythm: regular rhythm Heart sounds: Normal, physiologic split S2 sound present Peripheral pulses: radial pulses present and posterior tibial pulses present GI Inspection: No distended, Yes Abdominal panniculus present and Yes obesity Palpation (GI): Soft to palpation, nontender, no guarding, not rigid and No hepatosplenomegaly present Percussion: Yes normal to percussion Auscultation: Hyperactive bowel sounds present Rectal Exam - Female: deferred Skin Other: Mild weeping of clear fluid from lower extremity wound, no signs of warmth increased swelling or infection General skin exam: turgor normal, skin not dry, no jaundice, No spider nevi and no striae Rashes: no rashes Wounds: wounds noted (0.5 cm scratch right lower extremity 2 in above ankle lateral) Nails: normal Neuro General: oriented to person, oriented to place and oriented to time Cranial nerves: Yes Equal, round and reactive pupils present and Yes Normal hearing present Speech: No Abnormal speech present Extrem General: Yes normal to inspection, No clubbing, No cyanosis and Yes edema (Mild pitting bilateral ankles) Psych Appearance: grossly normal and well kempt Mental Status: mental status grossly normal Speech and movement: Normal speech and movement present Affect: Labile affect present, Sad affect present, Anxious affect present and Irritable affect present Attitude: cooperative Thought process: not confabulating, Perseverating thought process present, Tangential thought process present and Racing thoughts present Thought content: Normal thought content present Insight: Limited insight present (Psych) Judgement: Limited judgement present (Psych) Assessment & Plan Assessment & Plan (1) Gallstones: Comment: negative HIDA scan Code(s): K80.20 - Calculus of gallbladder without cholecystitis without obstruction Category: Medical (2) Constipation: Code(s): K59.00 - Constipation, unspecified Category: Medical (3) Erosive esophagitis: Code(s): K22.10 - Ulcer of esophagus without bleeding Category: Medical (4) GERD (gastroesophageal reflux disease): Code(s): K21.9 - Gastro-esophageal reflux disease without esophagitis Category: Medical (5) Nausea and vomiting: Code(s): R11.2 - Nausea with vomiting, unspecified Category: Medical Plan The patient is an 84-year-old female presenting with significant constipation, nausea, and vomiting. She has a known history of chronic Gastroesophageal Reflux Disease (GERD) and diarrhea-predominant Irritable Bowel Syndrome (IBS), historically managed with Imipramine and Budesonide, now discontinued. The constipation has become severe enough to require Emergency Room visits, And she is practicing self digital disimpaction. She reports increasing anxiety and memory problems. She does not remember if she started the metoclopramide or not and her primary care providers prescribing Zofran. it also appears that her primary care provider maybe prescribing PPIs and the patient is really uncertain of what GI medicine she is taking. She attempts to manage her constipation by consuming prunes and using Benefiber, though these have provided limited relief. Her current fluid intake is sufficient as she drinks around 9 6-8 oz glasses of water a day. today she is telling me that she occasionally has softer stools with a return of her fecal incontinence. This was not clear to me at the last visit. In the past there has been a question of whether she has some rectal insufficiency or even a rectocele contributing to her symptoms. She says she has been told in the past she has a fishhook which I think she means a fissure and does not make much sense to me. The patient's symptoms also include constant nausea, disrupted sleep, and restless legs, impacting her overall quality of life. The pain management includes Tramadol and Oxycodone, which might contribute to the constipation issue. She is under nephrology care for chronic kidney disease. A recent CAT scan discovered gallstones and we have a HIDA scan coming up to see if this is part of her symptom presentation. She also has an upcoming gastric emptying study. She has had multiple upper endoscopies in the past for this same problem over the years. She mentions that her cat scratched her and she is being treated with Zithromax for scratch scratch fever. I think she is probably being treated more for lower extremity cellulitis, she is complaining of weeping from a very small half a cm wound. This is located about 2 in above the ankle on the lateral side of the right lower leg. The patient reports a limited diet due to frequent nausea and vomiting. She eats cautiously due to the risk of exacerbating symptoms. She consumes prunes daily to help manage constipation, along with Benefiber. Fluid intake is reportedly adequate, as water increases her nausea; she estimates drinking approximately 8-12 ounces of water nine times a day. She supplements with occasional sips of Pedialyte. - Stop taking Metoclopramide immediately. - Continue Docusate daily for stool softening. - Eat three prunes every day. - Take Benefiber as directed. - Choose a magnesium supplement or milk of magnesia to help with constipation. - Stay as hydrated as possible; aim for consistent fluid intake. - Continue taking your prescribed nausea medication: Ondansetron. - Attend the scheduled HIDA scan and gastric emptying study. - Bring all prescription and [id number] medications to the next appointment. - Watch for worsening symptoms, and contact the office if diarrhea or severe pain occurs. Orders: Orders EGD/[place] Combo - GI Use Only Today R11.2 - Nausea with vomiting, unspecified Medications: On Hold budesonide DR-ER Hold Comment: Doctor's Order 6 mg (2 x 3 mg) PO DAILY 30 ea 6RF Coding Level of Care Code Est Pt Level 4 (87384) Diagnoses Gallstones K80.20 Constipation K59.00 Erosive esophagitis K22.10 GERD (gastroesophageal reflux disease) K21.9 Nausea and vomiting R11.2 Time Spent (min) 44
[2025-05-01 10:52] VITALS: BP 152/69; PULSE 73; BMI 39.2
--- OUTSIDE RECORDS SUMMARY | 2025-05-01 11:51 | XMS_ITS | Clinical Summary ---
Author Organization [facility] Address [address] [place] [address] Phone Care Team Providers Care Business Insurance Agent Name Role Phone John Thao MD Primary Care Provider [phone] Allergies Active Allergy Reactions Criticality Noted Date [...] patient's age to complete this topic Insurance [facility] Medicare Medicaid [place] Medicare [facility] Medicaid [place] Care Teams Business Insurance Agent Relationship Specialty Start Date End Date John Thao MD [address] [place] [address] DRIVE [address] [place], [place] PCP - General 09/28/20
--- OUTSIDE RECORDS SUMMARY | 2025-05-01 11:51 | XMS_ITS | Clinical Summary ---
Author Organization [facility] ity Address [address] [place] [phone] Care Team Providers Care Retail Loss Prevention Specialist Name Role Phone John Thao MD Primary Care Provider [phone] Social History Tobacco Use Types Packs/Day Years [...] age to complete this topic Care Teams Retail Loss Prevention Specialist Relationship Specialty Start Date End Date John Thao MD [address] [place] [address] Dr Vernon [place] PCP - General Summer Babysitter 10/31/18
== END 2025-05-01 12:14 | disposition home or self-care (01) ==
LOC: HO.HGI 10:44
PROVIDERS: PCP Internal Medicine; Visit Provider Nurse Practitioner
DX: K80.20 Calculus of gallbladder without cholecystitis without obstruction (principal); K59.00 Constipation, unspecified; K22.10 Ulcer of esophagus without bleeding; K21.9 Gastro-esophageal reflux disease without esophagitis; R11.2 Nausea with vomiting, unspecified
CPT/HCPCS: 99214

== ENCOUNTER → 2025-05-01 10:43 | Outpatient (BNVA) | payer MEDICARE, SELFPAY | PROVIDERS: PCP Internal Medicine; Visit Provider Nurse Practitioner | DX: R11.2 Nausea with vomiting, unspecified (principal); K21.9 Gastro-esophageal reflux disease without esophagitis; K22.10 Ulcer of esophagus without bleeding; K59.00 Constipation, unspecified; K80.20 Calculus of gallbladder without cholecystitis without obstruction | CPT/HCPCS: 99212 ==

== ENCOUNTER → 2025-05-02 10:45 | Outpatient (REF) | payer MEDICARE, SELFPAY ==
--- NOTE | ~2025-05-02 | NM_ITS ---
EXAMINATION: NM HEPATOBILIARY WITHOUT PHARM HISTORY: R11.2 - Nausea with vomiting, unspecified. TECHNIQUE: An hepatobiliary scan was performed following the intravenous administration of mCi technetium 99m-mebrofenin. Sequential images were obtained over 2 hours. The patient could not tolerate additional imaging and the study was terminated. No intravenous CCK was administered. COMPARISON: Correlation is made with a CT of the abdomen with contrast dated 02/03/2025. FINDINGS: There is normal uptake and excretion of the radiopharmaceutical by the liver. Gallbladder activity is noted at 100 minutes. Common bile duct activity is seen at 34 minutes. Small bowel activity is noted at 46 minutes. NM/NM hepatobiliary wo pharm IMPRESSION: No evidence of cystic duct obstruction. The patient could not tolerate additional imaging, including the administration of intravenous CCK for computation of the gallbladder ejection fraction. Electronically signed by: Julian Duke MD 05/02/2025 01:39 PM EDT
--- OUTSIDE RECORDS SUMMARY | 2025-05-02 10:54 | XMS_ITS | Clinical Summary ---
Author Organization [facility] ity Address [address] [place] [phone] Care Team Providers Care [employer] Name Role Phone John Thao MD Primary Care Provider [phone] Social History Tobacco Use Types Packs/Day Years [...] age to complete this topic Care Teams [employer] Relationship Specialty Start Date End Date John Thao MD [address] [place] [address] Dr Vernon [place] PCP - General Scribing Machine Operator 10/31/18
--- OUTSIDE RECORDS SUMMARY | 2025-05-02 10:54 | XMS_ITS | Clinical Summary ---
Author Organization [facility] Address [address] [place] [address] Phone Care Team Providers Care Luncheonette Manager Name Role Phone John Thao MD Primary Care Provider [phone] Allergies Active Allergy Reactions Criticality Noted Date [...] patient's age to complete this topic Insurance [facility] Medicare Medicaid [place] Medicare [facility] Medicaid [place] Care Teams Luncheonette Manager Relationship Specialty Start Date End Date John Thao MD [address] [place] [address] DRIVE [address] [place], [place] PCP - General 09/28/20
== END ==
LOC: HO.NUCMED 10:45
PROVIDERS: Visit Provider Nurse Practitioner
DX: R11.2 Nausea with vomiting, unspecified (principal); K80.20 Calculus of gallbladder without cholecystitis without obstruction
CPT/HCPCS: 78226; A9537

== ENCOUNTER → 2025-05-02 10:48 | Outpatient (BNV) | payer MEDICARE, SELFPAY | PROVIDERS: Visit Provider Radiology Diagnostic Radiology | DX: R11.2 Nausea with vomiting, unspecified (principal) | CPT/HCPCS: 78226 ==

== ENCOUNTER → 2025-05-07 08:29 | Outpatient (REF) | payer MEDICARE, SELFPAY ==
--- NOTE | ~2025-05-07 | NM_ITS ---
EXAMINATION: NM RADIONUCLIDE SOLID FOOD GASTRIC EMPTYING 4-HOUR STUDY CLINICAL INFORMATION: Nausea and vomiting. COMPARISON: None TECHNIQUE: A standard meal consisting of 4 oz of Egg Beaters brand tagged with 0.98 microcuries Tc-99m Sulfur Colloid, 6 oz water and 2 slices of the white toast with jelly was administered orally to the patient. Images were obtained using a dual head gamma camera in the anterior and posterior projections over of the stomach immediately post ingestion and at hourly intervals up to 4 hours post ingestion. The anterior and posterior counts at each time interval were averaged using the geometric mean and expressed as percentage of the immediate post ingestion counts. FINDINGS: There is good visualization of activity in the stomach immediately post ingestion. As the study progresses, there is good clearance of activity from the stomach and visualization of progressively increasing small bowel activity. By the end of the study, there is almost no retention noted in the stomach. Retention in the stomach at each time interval was: 1 hour 80% (normal 37%-90%) 2 hours 22% (normal 30%-60%) 3 hours 36% 4 hours 2% (normal 0%-10%) NM/UT gastric emptying study IMPRESSION: Normal 4-hour solid food gastric emptying study. For solid meal, rapid gastric emptying is less than 30% at 60 minutes. Delayed gastric emptying criteria is more than 60% remaining at 120 minutes or more than 10% at 240 minutes. The 4-hour value is the best discriminator of a normal or abnormal result). Gastric emptying study grading per JNMT Consensus Recommendations in 2008 (https://tech.snmjournals.org/content/3644) Grade 1 (mild retention): 11-20% at 4h Grade 2 (moderate retention): 21-35% at 4h Grade 3 (severe retention): 36-50% at 4h Grade 4 (very severe retention): >50% retention at 4h Electronically signed by: Kanu Aldridge MD 05/07/2025 02:44 PM EDT
--- OUTSIDE RECORDS SUMMARY | 2025-05-07 09:09 | XMS_ITS | Clinical Summary ---
Author Organization [facility] ity Address [address] [place] [phone] Care Team Providers Care Park Maintenance Technician Name Role Phone John Thao MD Primary Care Provider [phone] Social History Tobacco Use Types Packs/Day Years [...] age to complete this topic Care Teams Park Maintenance Technician Relationship Specialty Start Date End Date John Thao MD [address] [place] [address] Dr Vernon [place] PCP - General Hand Flesher 10/31/18
--- OUTSIDE RECORDS SUMMARY | 2025-05-07 09:09 | XMS_ITS | Clinical Summary ---
Author Organization [facility] Address [address] [place] [address] Phone Care Team Providers Care Digital Printer Name Role Phone John Thao MD Primary Care Provider [phone] Allergies Active Allergy Reactions Criticality Noted Date [...] age to complete this topic Insurance [facility] Medicare Medicaid [place] Medicare [facility] Medicaid [place] Care Teams Digital Printer Relationship Specialty Start Date End Date John Thao MD [address] [place] [address] [address] [place], [place] PCP - General 09/28/20
== END ==
LOC: HO.NUCMED 08:29
PROVIDERS: Visit Provider Nurse Practitioner
DX: K80.20 Calculus of gallbladder without cholecystitis without obstruction (principal); R11.2 Nausea with vomiting, unspecified
CPT/HCPCS: 78264; A9541

== ENCOUNTER → 2025-05-07 08:31 | Outpatient (BNV) | payer MEDICARE, SELFPAY | PROVIDERS: Visit Provider Radiology Diagnostic Radiology | DX: R11.10 Vomiting, unspecified (principal) | CPT/HCPCS: 78264 ==

== ENCOUNTER 2025-05-12 10:16 | Outpatient (AMB) | payer MEDICARE, SELFPAY ==
--- NOTE | 2025-05-12 10:31 | A.OFFPC_ITS ---
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 codeine (CODEINE) Allergy (Intermediate, Verified 05/12/25 10:31) Rash fish derived (FISH) Allergy (Intermediate, Verified 05/12/25 10:31) HIVES Iodinated Contrast Media (IV Dye, Iodine Containing) Allergy (Intermediate, Verified 05/12/25 10:31) HIVES nitrofurantoin (Nitrofurantoin) Allergy (Intermediate, Verified 05/12/25 10:31) HIVES Sulfa (Sulfonamide Antibiotics) (SULFA (SULFONAMIDE ANTIBIOTICS)) Allergy (Intermediate, Verified 05/12/25 10:31) RASH valsartan (From DIOVAN) Allergy (Intermediate, Verified 05/12/25 10:31) HIVES vancomycin (VANCOMYCIN) Allergy (Intermediate, Verified 05/12/25 10:31) RASH Penicillins (PENICILLINS) Allergy (Mild, Verified 05/12/25 10:31) RASH adhesive (ADHESIVE) Allergy (Unknown, Verified 05/12/25 10:31) UNKNOWN hydrocodone (Vicodin) Allergy (Unknown, Verified 05/12/25 10:31) Unknown ibuprofen (IBUPROFEN) Adverse Reaction (Unknown, Verified 05/12/25 10:31) UNKNOWN Medication List - Last Reconciled 05/12/25 by MYCHAL Mcarthur albuterol sulfate 90 mcg/actuation 2 puffs inhalation Q6H PRN albuterol sulfate 2.5 mg inhalation Q4H PRN budesonide DR-ER 6 mg (2 x 3 mg) PO DAILY Held on 05/01/25. Instructions: Doctor's Order docusate sodium (Colace) 100 mg PO .DAILY WITH FOOD 30 days hydrochlorothiazide 25 mg PO DAILY ipratropium-albuterol 0.5 mg-3 mg(2.5 mg base)/3 mL 3 mL inhalation Q6H PRN 30 days levothyroxine 50 mcg PO DAILY@0600 lorazepam 0.5 mg PO BEDTIME PRN metoprolol succinate ER 50 mg PO DAILY ondansetron HCl 4 mg PO Q8H PRN oxycodone 5 mg PO QID PRN peg 3350-electrolytes 236-22.74-6.74 -5.86 gram (Golytely) 240 mL PO Q10M 1 day rabeprazole (AcipHex) 20 mg PO DAILY sertraline 25 mg PO DAILY tramadol 50 mg PO BID wheat dextrin (Benefiber Clear Sugar Free(dextrin)) 1.5 grams PO BID Tobacco use date assessed: 12/25/24 Dental Screening Dental Screen Date: 12/25/24 HPI HPI Comments History of Present Illness Details 84 year old female with history of asthm a-copd overlap, htn, hypothyroidism presenting for follow up. Here today with her son HTN: on hctz, metoprolol. BP 142/86. Denies chest pain, dyspnea Hypothyroid: on levothyroxine. heme/onc: History of breast cancer. follows with Dr Beauchamp. 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 A sentinel node biopsy on 06/26/2015 was then performed which produced two lymph nodes negative for carcinoma ([id number]). She completed radiation therapy in August 2015 and took 5 years of tamoxifen ENT-benign parotid masses. Dysphagia GI: Dysphagia-on aciphex. Frequent nausea. Has both reglan and ondansetron. She believes the zofran is working more effectively. HIDA negative for obstruction, unable to tolerate some of the imaging. Gastric emptying. Alternating diarrhea and constipation ongoing years. Currently constipation, no BM in days. No severe pain or vomiting. : Endorses anxiety and depressive symptoms. Stopped lorazepam. Stopped sertraline, worsening anxiety issues with these. Does want to try other medications. COPD/Asthma-follows with pulm. Upcoming visit [facility]. Doing breathing exercises Concerns: GI issues as above ROS see HPI PHYSICAL EXAM: GENERAL: Alert and oriented x 3. NAD EYES: EOMI. Anicteric. HENT: Moist mucous membranes. No scleral icterus. No cervical lymphadenopathy. LUNGS: Clear to auscultation bilaterally though diminished. Mild distress CARDIOVASCULAR: Regular rate and rhythm. No murmur. No JVD. ABDOMEN: Soft, non-tender +bs EXTREMITIES: No edema. Non-tender. SKIN: No rashes or lesions. Warm. NEUROLOGIC: No focal neurological deficits. CN II-XII grossly intact PSYCHIATRIC: Cooperative. 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 difficile colitis Breast cancer Surgical History History of esophagogastroduodenoscopy (EGD) H/O colonoscopy H/O lymph node biopsy Hx of cataract surgery History of tonsillectomy and adenoidectomy H/O hysterectomy for benign disease History of total bilateral knee replacement H/O kyphoplasty Family History Father No problems noted. Mother Breast cancer Sister Breast cancer Social History Household Members: Children Housing: House Are you a primary summer child caregiver to a significant other at home: No Do you presently have visiting nurse or other home services: No Alcohol intake: never Patient Tobacco Use Status: Former Tobacco user e-Cigarette/Vaping Use: Never Used Substance Use Type: Marijuana Advance Directives Date on File: 02/05/25 service: No Current occupational status: retired Cognitive needs: No Hearing needs: No Vision needs: Yes (rx glasses) Questionnaire Thrive Questionnaire Date Thrive assessed: 02/05/25 ALLI-7 AMB Questionnaire ALLI-7 Date ALLI - 7 assessed: 12/25/24 Source: Developed by Drs. Julian Martinez, Daya Jose, Jossue Izaguirre and colleagues, with an educational venkatesh from [employer]. Physical exam (Primary Care) Vital Signs: Last Vital Signs Temp 98.6 F 05/12/25 10:43 Pulse 80 05/12/25 10:43 Resp 24 H 05/12/25 10:43 BP 142/86 H 05/12/25 10:43 Pulse Ox 96 05/12/25 10:43 Oxygen Delivery Method Room Air 05/12/25 10:43 BMI result Body Mass Index 39.6 Tobacco/Smoking Status: Tobacco use Status Tobacco use date assessed 12/25/24 05/12/25 10:32 Patient Tobacco Use Status Former Tobacco user 05/12/25 10:32 e-Cigarette/Vaping Use Never Used 05/12/25 10:32 Thrive Assessment: Date of Thrive Assessment Date Thrive assessed 02/05/25 05/12/25 10:32 Coding Level of Care Code Est Pt Level 4 (46316) Complex EM visit Add On G2211 Diagnoses Hypothyroidism, unspecified type E03.9 Hypothyroidism type: unspecified Primary hypertension I10 Hypertension type: primary hypertension Asthma-COPD overlap syndrome J44.9 Constipation K59.00 Degenerative joint disease (DJD) of lumbar spine M47.816 Anxiety F41.9 Assessment & Plan Assessment & Plan (1) Hypothyroidism: Code(s): E03.9 - Hypothyroidism, unspecified Category: Medical Qualifiers: Hypothyroidism type: unspecified Qualified Code(s): E03.9 - Hypothyroidism, unspecified Plan: TSH w reflex free t4 ordered. Continue levothyroxine. Schedule eye exam. Lubricating eye drops recommended. Can consider referral to endo (2) Hypertension: Code(s): I10 - Essential (primary) hypertension Category: Medical Qualifiers: Hypertension type: primary hypertension Qualified Code(s): I10 - Essential (primary) hypertension Plan: Controlled. Continue hctz, metoprolol. Low sodium diet (3) Asthma-COPD overlap syndrome: Code(s): J44.9 - Chronic obstructive pulmonary disease, unspecified Category: Medical Plan: Continue following with pulm. Recommend breathing exercises. Breathing currenlty baseline. Complicated by anxiety and likely narcotic use. Refusing further treatments for anxiety at this time. Unable to manage pain without tramadol and oxycodone. Continue therapies (4) Constipation: Code(s): K59.00 - Constipation, unspecified Category: Medical Plan: Continue following with GI. HIDA and gastric emptying scans reviewed. Continue stool softeners. Recommend high fiber diet and supplements. Unable to administer suppositories. Advised she can try mag citrate ONLY if no BM in 3-4 days. Advised can cause diarrhea. Discontinue if so. (5) Degenerative joint disease (DJD) of lumbar spine: Comment: with facet arthropathy and stenosis history of L3 compression fracture status post kyphoplasty Code(s): M47.816 - Spondylosis without myelopathy or radiculopathy, lumbar region Category: Medical Plan: Pain unmanaged without tramadol and oxycodone. Will continue. (6) Anxiety: Code(s): F41.9 - Anxiety disorder, unspecified Category: Medical Plan: Discontinue lorazepam and sertraline. Recommend buspirone but patient is not interested in any further medication therapy. It is possible that this is adversely affecting her GI symptoms, pain, and work of breathing. Advised to contact the office should she change her mind. Not interested in counseling/Psychiatry Plan Follow-up in the office in 3 months with labs completed prior to visit Orders: Orders Basic Metabolic Panel 3 Months E03.9 - Hypothyroidism, unspecified, E78.00 - Pure hypercholesterolemia, unspecified, F41.9 - Anxiety disorder, unspecified, I10 - Essential (primary) hypertension, K59.00 - Constipation, unspecified Liver Panel 3 Months E03.9 - Hypothyroidism, unspecified, E78.00 - Pure hypercholesterolemia, unspecified, F41.9 - Anxiety disorder, unspecified, I10 - Essential (primary) hypertension, K59.00 - Constipation, unspecified TSH reflex Free T4 3 Months E03.9 - Hypothyroidism, unspecified, E78.00 - Pure hypercholesterolemia, unspecified, F41.9 - Anxiety disorder, unspecified, I10 - Essential (primary) hypertension, K59.00 - Constipation, unspecified Medications: Refilled ondansetron HCl 4 mg PO Q8H PRN 90 tabs 3RF for nausea/vomiting oxycodone 5 mg PO QID PRN 120 tabs 0RF severe pain
[2025-05-12 10:43] VITALS: BP 142/86; PULSE 80; RESP 24; TEMP 37; O2SAT 96; BMI 39.6
--- OUTSIDE RECORDS SUMMARY | 2025-05-12 11:25 | XMS_ITS | Clinical Summary ---
Author Organization [facility] Address [address] [place] [phone] Phone Care Team Providers Care Knife Cutter Name Role Phone John Thao MD Primary Care Provider [phone] Allergies Active Allergy Reactions Criticality Noted Date [...] patient's age to complete this topic Insurance [facility] Medicare Medicaid [place] Medicare [facility] Medicaid [place] Care Teams Knife Cutter Relationship Specialty Start Date End Date John Thao MD [address] [place] [address] DRIVE [address] [place], [place] PCP - General 09/28/20
--- OUTSIDE RECORDS SUMMARY | 2025-05-12 11:25 | XMS_ITS | Clinical Summary ---
Author Organization [facility] ity Address [address] [place] [phone] Care Team Providers Care Trapper Animal Name Role Phone John Thao MD Primary [...] age to complete this topic Care Teams Trapper Animal Relationship Specialty Start Date End Date John Thao MD [address] [place] [address] Dr Vernon [place] PCP - General Tool Radial Drill Press Set Up Operator 10/31/18
[2025-05-12 11:43] VITALS: BP 138/82
== END 2025-05-12 11:09 | disposition home or self-care (01) ==
LOC: HO.HMCHD 10:17
PROVIDERS: PCP Internal Medicine; Visit Provider Physician Assistant
DX: E03.9 Hypothyroidism, unspecified (principal); I10 Essential (primary) hypertension; J44.9 Chronic obstructive pulmonary disease, unspecified; K59.00 Constipation, unspecified; M47.816 Spondylosis without myelopathy or radiculopathy, lumbar region; F41.9 Anxiety disorder, unspecified

== ENCOUNTER → 2025-05-12 10:16 | Outpatient (BNVA) | payer MEDICARE, SELFPAY | PROVIDERS: PCP Internal Medicine; Visit Provider Physician Assistant | DX: E03.9 Hypothyroidism, unspecified (principal); I10 Essential (primary) hypertension; J44.9 Chronic obstructive pulmonary disease, unspecified; K59.00 Constipation, unspecified; M47.816 Spondylosis without myelopathy or radiculopathy, lumbar region; F41.9 Anxiety disorder, unspecified | CPT/HCPCS: 99212 ==

== ENCOUNTER 2025-05-14 12:22 | Outpatient (REF) | payer MEDICARE, SELFPAY ==
--- NOTE | ~2025-05-14 | MM_ITS ---
EXAMINATION: MM DIAGNOSTIC DIGITAL MAMMOGRAPHY, RIGHT Limited right ultrasound. CLINICAL INFORMATION: Right palpable lump in the axilla. COMPARISON: Mammography: Priors on PACS. TECHNIQUE: Digital mammography is performed in craniocaudal and mediolateral oblique views along with computer-aided detection (CAD). FINDINGS: There are scattered areas of fibroglandular density (ACR BI-RADS breast composition Category b). BB marker in the right axilla area of patient's palpable lump without underlying abnormal finding. There are no significant masses, abnormal calcifications, or other abnormalities. Targeted color Doppler ultrasound scanning in the area the patient's palpable lump in the right axilla demonstrates an axillary lymph node which is probably benign with normal morphology cortex Limited imaging measures within normal limits. Due to the depth of the lymph node six-month follow-up recommended for further evaluation. Results are provided to the patient at time of visit by the technologist. MM/MM diagnostic mammo unilat RT IMPRESSION: Right axillary palpable lump correlates with a ill-defined lymph node in the right axilla with normal cortical thickness, due to the depth 6 month follow-up ultrasound recommended for further evaluation to confirm normal morphology. ASSESSMENT: BI-RADS BI-RADS 3 - Probably benign finding(s) - 6 month follow-up suggested RECOMMENDATION: 6 Month F/U This patient's information was entered into a reminder system with a target due date for their next mammogram. Electronically signed by: Greer Ricketts DO 05/14/2025 01:51 PM EDT
--- OUTSIDE RECORDS SUMMARY | 2025-05-14 12:57 | XMS_ITS | Clinical Summary ---
Author Organization [facility] ity Address [address] [place] [phone] Care Team Providers Care Telemetry Rn Name Role Phone John Thao MD Primary Care Provider [phone] Social History Tobacco Use Types Packs/Day Years [...] age to complete this topic Care Teams Telemetry Rn Relationship Specialty Start Date End Date John Thao MD [address] [place] [address] Dr Vernon [place] PCP - General Family Helper 10/31/18
--- OUTSIDE RECORDS SUMMARY | 2025-05-14 12:57 | XMS_ITS | Clinical Summary ---
Author Organization [facility] Address [address] [place] [phone] Phone Care Team Providers Care Theatre Director Name Role Phone John Thao MD Primary Care Provider Allergies Active Allergy Reactions Criticality Noted Date [...] [facility] Medicaid [place] Care Teams Theatre Director Relationship Specialty Start Date End Date John Thao MD [address] [place] [address] [address]IVE [address] [place], [place] PCP - General 09/28/20
== END 2025-05-14 12:23 | disposition home or self-care (01) ==
LOC: HO.MAMMO 12:22
PROVIDERS: PCP Internal Medicine; Visit Provider Surgery
DX: R59.0 Localized enlarged lymph nodes (principal); C50.412 Malignant neoplasm of upper-outer quadrant of left female breast; Z17.0 Estrogen receptor positive status [ER+]
CPT/HCPCS: 76642; 77062; 77065

== ENCOUNTER → 2025-05-14 12:30 | Outpatient (BNV) | payer MEDICARE, SELFPAY | PROVIDERS: PCP Internal Medicine; Visit Provider Internal Medicine | DX: N63.31 Unspecified lump in axillary tail of the right breast (principal) | CPT/HCPCS: 76642; 77065 ==

== ENCOUNTER 2025-05-16 06:48 | Inpatient (IN) | payer MEDICARE, SELFPAY ==
[2025-05-16] VITALS (21 sets, daily range): BP systolic 112–178; BP diastolic 45–83; PULSE 64–108; RESP 15–96; TEMP 36.6–37.9; O2SAT 91–99; BMI 39.6; BMI 44.6
--- NOTE | ~2025-05-16 | XR_ITS ---
EXAMINATION: XR CHEST 1 VIEW HISTORY: dyspnea COMPARISON: Comparison is made with the prior examination dated 02/17/2025. FINDINGS: A single AP portable view of the chest performed at 7:55 AM is submitted. The lungs remain hyperinflated, consistent with COPD. There are mild increased interstitial markings. No focal airspace opacity is identified. There is no pleural effusion, pneumothorax, or pulmonary vascular congestion. The heart is normal in size. The bones are intact. XR/XR chest 1V IMPRESSION: COPD. No acute cardiopulmonary abnormality. Electronically signed by: Julian Duke MD 05/16/2025 08:20 AM EDT
--- NOTE | ~2025-05-16 | CT_ITS ---
EXAMINATION: CT ANGIOGRAM CHEST CLINICAL INFORMATION: Hypoxia, patient on high flow oxygen. COMPARISON: No recent prior CT. Correlation made with remote CT chest 09/08/2018. Chest x-ray dated earlier same day. TECHNIQUE: Multiple axial images were obtained through the chest after the administration of 50 mL of Omnipaque 350 intravenous contrast. Extensive vascular post-processing including two-dimensional and three-dimensional reformatted images were created and reviewed on an independent workstation. This CT examination was performed using dose optimization techniques as appropriate, variously including the following: *Automated exposure control *Adjustment of mA and/or kV according to patient size (this includes techniques or standardized protocols for targeted exams where dose is matched to indication/reason for exam; i.e. extremities or head) *Use of iterative reconstruction technique FINDINGS: VASCULAR: Contrast opacification of the pulmonary arterial system is diagnostic. There is no pulmonary embolus identified. The main pulmonary artery is mildly prominent, suggesting possible increased ulnar artery pressures. There is mild cardiac enlargement. No pericardial effusion. There is moderate to heavy calcification of the aorta. There is mild ectasia without aneurysm. There is no acute aortic syndrome. The great vessels branch normally and are patent. There is no reflux of contrast into the IVC. There is no evidence of right heart strain. LUNGS: There is mild to moderate centrilobular emphysema present with hyperaeration of the lung parenchyma. There is mild dependent atelectasis bilaterally. There is linear type discoid atelectasis or scarring in both lower lobes, and within the lingula, and posterior left upper lobe. There is no pneumonic consolidation identified. A few patchy groundglass opacities are present in both lower lobes, likely infectious or inflammatory in etiology. The small airways are thickened, suggesting small airways inflammatory disease. There is no evidence of interstitial lung disease. There is no suspicious pulmonary nodule. Mild mosaic attenuation is present, likely on the basis of air trapping given the appearance of the trachea. There is no effusion or pneumothorax. MEDIASTINUM: Partially imaged thyroid is normal. The majority is not imaged. There is no lymphadenopathy or mass within the mediastinum. Central airways demonstrated partial expiratory appearance with an bowing of the posterior membranous trachea. Central airways are patent. Mildly patulous appearing esophagus is noted. Prominent epicardial fat pad present. CHEST WALL/AXILLA: There is scarring in the superolateral left breast with calcification. There is no adenopathy in the axillary regions. There is mass. IMAGED UPPER ABDOMEN: Mild hepatomegaly is present with no suspicious focal hepatic lesion. Remainder the imaged upper abdominal contents are unremarkable. OSSEOUS STRUCTURES: No suspicious lytic or blastic bone lesion. There are degenerative spinal changes present. There is a chronic appearing T7 compression deformity, approximately 50% loss of height. Severe degenerative arthrosis of the right shoulder joint. CT/CT angio chest PE protocol IMPRESSION: 1. There is no evidence of pulmonary embolus or acute aortic syndrome. There is no aneurysm. The aorta is moderately calcified and ectatic. 2. There is COPD present. There are subtle patchy groundglass opacities in both lower lobes, suggestive of infectious/inflammatory etiology. There is diffuse thickening of the small airways suggesting inflammatory airways disease. 3. There is discoid type atelectasis in both lower lobes, lingula, and posterior left upper lobe. 4. Enlarged main pulmonary artery suggesting pulmonary arterial hypertension. 5. There is mild cardiac enlargement present. No pericardial effusion. 6. There are additional ancillary findings as detailed in the body of the cord. Electronically signed by: Michael Palm MD 05/16/2025 12:36 PM EDT
--- NOTE | 2025-05-16 07:07 | ED_ITS ---
HPI - General Adult General Chief complaint: General Medical Stated complaint: cough, unable to use bathroom Time Seen by Provider: 05/16/25 07:07 Source: patient and EMS Mode of arrival: EMS Limitations: no limitations History of Present Illness ED Provider: HPI narrative: 84-year-old woman with fairly advanced COPD, not on home O2, presented with significant shortness of breath worse over the past 2 days, no fevers endorses cough, she has a history of chronic hoarseness patient has seen for this in the past, not nonsmoker. Related Data Home Medications ?Medication ?Instructions ?Recorded ?Confirmed metoprolol succinate 50 mg 50 mg PO DAILY 06/15/20 tablet,extended release 24 hr albuterol sulfate 2.5 mg/3 mL 2.5 mg inhalation Q4H [place] N for 03/25/24 05/16/25 (0.083 %) solution for nebulization wheezing docusate sodium 100 mg capsule 100 mg PO DAILY 5 05/16/25 (Colace) metoclopramide HCl 5 mg tablet 5 mg PO TID 05/16/25 Previous Rx's ?Medication ?Instructions ?Recorded budesonide 3 mg 6 mg (2 x 3 mg) PO DAILY #30 ea 02/13/25 capsule,delayed,extended release Held on 05/01/25. Instructions: Doctor's Order albuterol sulfate 90 mcg/actuation 2 puff inhalation Q 6H PRN 04/01/25 aerosol inhaler Shortness Of Breath Or Wheez ing #1 ea hydrochlorothiazide 25 mg tablet 25 mg PO DAILY #90 ta bs 04/03/25 levothyroxine 50 mcg tablet 50 mcg PO DAILY@0600 #90 t abs 04/03/25 rabeprazole 20 mg tablet,delayed 20 mg PO DAILY #90 ta bs 04/03/25 release (AcipHex) sertraline 25 mg tablet 25 mg PO DAILY #45 tabs 04/11 tramadol 50 mg tablet 50 mg PO BID moderate pain # 60 tabs 05/05/25 ondansetron HCl 4 mg tablet 4 mg PO Q8H PRN for nausea/vomiting #90 tabs oxycodone 5 mg tablet 5 mg PO QID PRN severe pain #120 05/12/25 tabs Allergies Allergy/AdvReac Type Severity Reaction Status Date / Time gabapentin Allergy Severe severe Verified 05/16/25 06:55 urinary incont. codeine (CODEINE) Allergy Intermediate Rash Verified 05/16/25 06:55 fish derived (FISH) Allergy Intermediate HIVES Verified 05/16/25 06:55 Iodinated Contrast Media (IV Allergy Intermediate HIVES Verified 05/16/25 06:55 Dye, Iodine Containing) nitrofurantoin Allergy Intermediate HIVES Verified 05/16/25 06:55 (Nitrofurantoin) Sulfa (Sulfonamide Allergy Intermediate RASH Verified 05/16/25 06:55 Antibiotics) (SULFA (SULFONAMIDE ANTIBIOTICS)) valsartan (From DIOVAN) Allergy Intermediate HIVES Verified 05/16/25 06:55 vancomycin (VANCOMYCIN) Allergy Intermediate RASH Verified 05/16/25 06:55 Penicillins (PENICILLINS) Allergy Mild RASH Verified 05/16/25 06:55 adhesive (ADHESIVE) Allergy Unknown UNKNOWN Verified 05/16/25 06:55 hydrocodone (Vicodin) Allergy Unknown Unknown Verified 05/16/25 06:55 ibuprofen (IBUPROFEN) AdvReac Unknown UNKNOWN Verified 05/16/25 06:55 Review of Systems 2 Constitutional: Constitutional: Reports as per HPI [facility] Past Medical History Medical History Hypothyroidism Acute anxiety Neuropathy of left ulnar nerve at wrist Compression fracture of C1 vertebra 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 difficile colitis Breast cancer Surgical History History of esophagogastroduodenoscopy (EGD) H/O colonoscopy H/O lymph node biopsy Hx of cataract surgery History of tonsillectomy and adenoidectomy H/O hysterectomy for benign disease History of total bilateral knee replacement H/O kyphoplasty Family History Family History Father No problems noted. Mother Breast cancer Sister Breast cancer Social History Social History (Reviewed 05/05/25 @ 09:15 by Ngoc Umaña Household Members: Children Housing: House Are you a primary day care home provider to a significant other at home: No Do you presently have visiting nurse or other home services: No Alcohol intake: never Patient Tobacco Use Status: Former Tobacco user Smoked in Last 30 Days: No e-Cigarette/Vaping Use: Never Used Use of substances other than those prescribed or required for medical reasons: No Substance Use Type: Marijuana Advance Directives: Yes Advance Directives Information Provided: Yes Advance Directives on File: No Advance Directives Date on File: 02/05/25 service: No Current occupational status: retired Cognitive needs: No Hearing needs: No Vision needs: Yes (rx glasses) Physical Exam ED Vital Signs: Vital Signs - 24 hr 05/16/25 06:53 05/16/25 07:33 05/16/25 07:36 Temperature 98.7 F 100.2 F Pulse Rate 72 65 64 Respiratory Rate 20 30 H 21 H Blood Pressure 178/81 H 138/76 Pulse Oximetry 97 98 Oxygen Delivery Method Room Air Room Air Oxygen Flow Rate Fraction of Inspired Oxygen 05/16/25 08:00 05/16/25 08:29 05/16/25 09:43 Temperature 98.4 F 98.8 F 100.0 F Pulse Rate 87 88 Respiratory Rate 35 H 25 H Blood Pressure 139/45 L 129/67 Pulse Oximetry 96 96 Oxygen Delivery Method Room Air Room Air Oxygen Flow Rate Fraction of Inspired Oxygen 05/16/25 09:46 05/16/25 10:05 05/16/25 10:19 Temperature 100.0 F 100 F Pulse Rate 85 83 Respiratory Rate 30 H 26 H 26 H Blood Pressure 118/83 117/74 Pulse Oximetry 97 99 Oxygen Delivery Method Room Air High Flow Nasal Cannula Oxygen Flow Rate 45 Fraction of Inspired Oxygen 05/16/25 10:20 05/16/25 10:24 05/16/25 11:43 Temperature Pulse Rate 83 87 Respiratory Rate 30 H 30 H 25 H Blood Pressure 124/68 114/55 L Pulse Oximetry 98 91 L Oxygen Delivery Method High Flow Nasal Cannula Room Air Oxygen Flow Rate 45 Fraction of Inspired Oxygen 34.4 05/16/25 12:00 Temperature 99 F Pulse Rate 87 Respiratory Rate 25 H Blood Pressure 160/81 H Pulse Oximetry 99 Oxygen Delivery Method Room Air Oxygen Flow Rate Fraction of Inspired Oxygen BMI result Body Mass Index 39.6 Const Other: * Gen: ?Overall well-appearing patient * HEENT: PERRLA, EOMI, MMM, * Neck: Supple, no LAD * CV: Tachypnea, wheezing * Resp: ?No wheezing rales rhonchi no stridor moving air well * Abd: ?Bowel sounds are present, no tenderness no rebound no rigidity * MSK: FROM, strength 5/5 all extremities * Skin: Warm, dry, intact, * Neuro: ?Alert and oriented x3, moving upper and lower extremities symmetrically, no obvious facial asymmetry noted Medications Administered Discontinued Medications Generic Name Dose Route Start Last Admin Trade Name Freq PRN Reason Stop Dose Admin Ceftriaxone Sodium 2 gm 05/16/25 08:21 05/16/25 08:28 Ceftriaxone Sodium 2 Gm Vial IVPUSH 05/16/25 08:22 2 gm ONCE ONE Administration Albuterol Sulfate 5 mg/ 0 mg 05/16/25 07:28 05/16/25 07:36 Albuterol/Ipratropium 3 ml INHALE 05/16/25 07:29 7.5 each ONCE ONE Administration Diphenhydramine HCl 12.5 mg 05/16/25 09:33 05/16/25 09:43 Diphenhydramine Hcl 50 Mg/Ml Vial IVPUSH 05/16/25 09:34 12.5 mg ONCE ONE Administration Fentanyl 50 mcg 05/16/25 09:44 05/16/25 10:20 Fentanyl Citrate/Pf 100 Mcg/2 Ml Vial IVPUSH 05/16/25 09:45 50 mcg ONCE ONE Administration Protocol Sodium Chloride 1,000 mls @ 999 mls/hr 05/16/25 07:30 05/16/25 09:37 Ns IV 05/16/25 08:30 Infused .Q1H1M DEVANG Infusion Acetaminophen 1,000 mg in 100 mls @ 400 mls/hr 05/16/25 08:30 05/16/25 09:43 Ofirmev IV 05/16/25 08:44 Infused ONCE ONE Infusion Sodium Chloride 2,667.12 mls @ 2,667.12 mls/hr 05/16/25 10:14 05/16/25 10:24 Ns 30 ml/kg infuse over 1 hr (2667.12 ml) 05/16/25 11:13 2,667.12 mls/hr IV Administration .Q1H STA Iohexol 100 ml 05/16/25 12:10 05/16/25 12:11 Iohexol 350 Mg/Ml 100 Ml Infus..Btl IV 05/16/25 12:11 65 ml ONCE ONE Administration Methylprednisolone Sodium Succinate 60 mg 05/16/25 07:25 05/16/25 07:38 Methylprednisolone Sod Succ 125 Mg/2 Ml Vial IVPUSH 05/16/25 07:26 60 mg ONCE ONE Administration Medical Decision Making Medical Decision Making MDM Narrative: Patient is presenting dyspnea, wheezy, tachypneic, considerations for workup as below, hemodynamically stable Eight hundred twenty patient has elevated lactic acid, she has leukocytosis, tachypnea, we will obtain blood cultures and administer antibiotics Differential Diagnosis Differential Diagnoses: The differential diagnosis associated with the presentation includes Admission/Observation Consideration of admission/observation: Escalation of care including admission/observation considered 2022 Emergency Medicine Coding Guide from [employer] on 05/16/2025 All calculations should be rechecked by clinician prior to use RESULT SUMMARY: 5 Estimated Level of Service Problems: High (5) Risk: High (5) Data: Extensive (5) NARRATIVE MDM: This patient's problem complexity is High as patient: with chronic illness(es) with severe exacerbation/progression/side effects. This patient's risk is High due to: overall presentation requiring evaluation for a potentially High-risk process. This patient's data complexity is Extensive due to: -multiple tests ordered/reviewed -external notes reviewed -independent interpretation of imaging or EKG -discussion of management/testing with external professional INPUTS: Number and Complexity ?> 1 = 5: chronic illness w/severe exacerbation (a) Risk level ?> 4 = High Tests ordered ?> 3 = >= Tests results reviewed (excluding labs) ?> 2 = 2 Prior external notes reviewed ?> 1 = 1 Assessment requiring and independent historian ?> 0 = No Independent interpretation of tests ?> 1 = Yes Discussed management/test interpretation w/external professional ?> 1 = Yes Consult Healthcare Provider Management of the patient was discussed with: Hospitalist Lab Data MDM Lab Attestation statement: I reviewed the patient's lab results. 05/16/25 07:30 05/16/25 07:30 Labs: Lab Results 05/16/25 05/16/25 05/16/25 Range/Units 07:29 07:30 07:32 WBC 12.4 H (4.8-10.8) X10*3/uL RBC 4.06 L (4.20-5.50) X10*6/uL Hgb 12.7 (12.0-16.0) g/dl Hct 37.9 (37.0-47.0) % MCV 93.3 (80.0-98.0) fL MCH 31.3 (27.0-33.0) pg MCHC 33.5 (31.0-35.0) g/dl RDW 13.8 (11.0-16.0) % Plt Count 289 (160-400) X10*3/uL MPV 9.8 (9.4-12.3) fL Immature Gran % (Auto) 0.8 H (0.0-0.4) % Neut % (Auto) 77.4 H (45-73) % Lymph % (Auto) 11.4 L (20-40) % [place] % (Auto) 7.2 (2-11) % Eos % (Auto) 2.7 (0-4) % Baso % (Auto) 0.5 (0-2) % Lymph # (Auto) 1.4 (1.2-4.9) X10*3/uL [place] # (Auto) 0.9 (0.1-1.2) X10*3/uL Eos # (Auto) 0.3 (0.0-0.4) X10*3/uL Baso # (Auto) 0.1 (0.0-0.2) X10*3/uL Abs Immat Gran (auto) 0.10 H (0.00-0.03) X10*3/uL Absolute Neuts (auto) 9.6 H (2.0-8.3) x10*3/uL Absolute Nucleated RBC 0.000 (0.0-0.012) X10*3/uL Nucleated RBC % (auto) 0.0 (0.0-0.2) /100WBC VBG pH (7.32-7.43) VBG pCO2 mmHg VBG pO2 mmHg VBG HCO3 (22-26) mmol/L VBG O2 Saturation % VBG Base Excess mmol/L Sodium 139 (135-145) mmol/L Potassium 3.5 D (3.3-5.1) mmol/L Chloride 101 (96-108) mmol/L Carbon Dioxide 27 (22-29) mmol/L Anion Gap 15 (12-20) BUN 22 H (9-16) mg/dL Creatinine 1.68 H (0.5-1.4) mg/dL Estim Creat Clear Calc 24.1 Estimated GFR 29 Random Glucose 99 (60-115) mg/dL Lactic Acid 2.4 H* (0.5-2.0) mmol/L Lactic Acid F/U @ 2Hr (0.5-2.0) mmol/L Calcium 10.3 H (8.4-10.2) mg/dL Total Bilirubin 0.9 (0.0-1.0) mg/dL AST 25 (5-31) U/L ALT 11 (0-31) U/L Alkaline Phosphatase 79 (39-117) U/L Troponin I High Sens (<3.5-17.0) ng/L B-Natriuretic Peptide 147 H (<100) pg/mL Total Protein 7.2 (6.5-8.0) g/dL Albumin 3.7 (3.5-5.0) g/dL Lipase 17 (8-78) U/L Influenza Type A (PCR) NEGATIVE (Negative) Influenza Type B (PCR) NEGATIVE (Negative) RSV RNA Qual (PCR) NEGATIVE (Negative) SARS-CoV-2 RNA (RT-PCR) NEGATIVE (Negative) 05/16/25 05/16/25 05/16/25 Range/Units 07:34 09:38 12:00 WBC (4.8-10.8) X10*3/uL RBC (4.20-5.50) X10*6/uL Hgb (12.0-16.0) g/dl Hct (37.0-47.0) % MCV (80.0-98.0) fL MCH (27.0-33.0) pg MCHC (31.0-35.0) g/dl RDW (11.0-16.0) % Plt Count (160-400) X10*3/uL MPV (9.4-12.3) fL Immature Gran % (Auto) (0.0-0.4) % Neut % (Auto) (45-73) % Lymph % (Auto) (20-40) % [place] % (Auto) (2-11) % Eos % (Auto) (0-4) % Baso % (Auto) (0-2) % Lymph # (Auto) (1.2-4.9) X10*3/uL [place] # (Auto) (0.1-1.2) X10*3/uL Eos # (Auto) (0.0-0.4) X10*3/uL Baso # (Auto) (0.0-0.2) X10*3/uL Abs Immat Gran (auto) (0.00-0.03) X10*3/uL Absolute Neuts (auto) (2.0-8.3) x10*3/uL Absolute Nucleated RBC (0.0-0.012) X10*3/uL Nucleated RBC % (auto) (0.0-0.2) /100WBC VBG pH (7.32-7.43) VBG pCO2 mmHg VBG pO2 mmHg VBG HCO3 (22-26) mmol/L VBG O2 Saturation % VBG Base Excess mmol/L Sodium (135-145) mmol/L Potassium (3.3-5.1) mmol/L Chloride (96-108) mmol/L Carbon Dioxide (22-29) mmol/L Anion Gap (12-20) BUN (9-16) mg/dL Creatinine (0.5-1.4) mg/dL Estim Creat Clear Calc Estimated GFR Random Glucose (60-115) mg/dL Lactic Acid 3.9 H* (0.5-2.0) mmol/L Lactic Acid F/U @ 2Hr 2.9 H* (0.5-2.0) mmol/L Calcium (8.4-10.2) mg/dL Total Bilirubin (0.0-1.0) mg/dL AST (5-31) U/L ALT (0-31) U/L Alkaline Phosphatase (39-117) U/L Troponin I High Sens 9.1 D (<3.5-17.0) ng/L B-Natriuretic Peptide (<100) pg/mL Total Protein (6.5-8.0) g/dL Albumin (3.5-5.0) g/dL Lipase (8-78) U/L Influenza Type A (PCR) (Negative) Influenza Type B (PCR) (Negative) RSV RNA Qual (PCR) (Negative) SARS-CoV-2 RNA (RT-PCR) (Negative) 05/16/25 Range/Units 12:48 WBC (4.8-10.8) X10*3/uL RBC (4.20-5.50) X10*6/uL Hgb (12.0-16.0) g/dl Hct (37.0-47.0) % MCV (80.0-98.0) fL MCH (27.0-33.0) pg MCHC (31.0-35.0) g/dl RDW (11.0-16.0) % Plt Count (160-400) X10*3/uL MPV (9.4-12.3) fL Immature Gran % (Auto) (0.0-0.4) % Neut % (Auto) (45-73) % Lymph % (Auto) (20-40) % [place] % (Auto) (2-11) % Eos % (Auto) (0-4) % Baso % (Auto) (0-2) % Lymph # (Auto) (1.2-4.9) X10*3/uL [place] # (Auto) (0.1-1.2) X10*3/uL Eos # (Auto) (0.0-0.4) X10*3/uL Baso # (Auto) (0.0-0.2) X10*3/uL Abs Immat Gran (auto) (0.00-0.03) X10*3/uL Absolute Neuts (auto) (2.0-8.3) x10*3/uL Absolute Nucleated RBC (0.0-0.012) X10*3/uL Nucleated RBC % (auto) (0.0-0.2) /100WBC VBG pH 7.44 H (7.32-7.43) VBG pCO2 31 mmHg VBG pO2 44 mmHg VBG HCO3 21 L (22-26) mmol/L VBG O2 Saturation 72.0 % VBG Base Excess -1.5 mmol/L Sodium (135-145) mmol/L Potassium (3.3-5.1) mmol/L Chloride (96-108) mmol/L Carbon Dioxide (22-29) mmol/L Anion Gap (12-20) BUN (9-16) mg/dL Creatinine (0.5-1.4) mg/dL Estim Creat Clear Calc Estimated GFR Random Glucose (60-115) mg/dL Lactic Acid (0.5-2.0) mmol/L Lactic Acid F/U @ 2Hr (0.5-2.0) mmol/L Calcium (8.4-10.2) mg/dL Total Bilirubin (0.0-1.0) mg/dL AST (5-31) U/L ALT (0-31) U/L Alkaline Phosphatase (39-117) U/L Troponin I High Sens (<3.5-17.0) ng/L B-Natriuretic Peptide (<100) pg/mL Total Protein (6.5-8.0) g/dL Albumin (3.5-5.0) g/dL Lipase (8-78) U/L Influenza Type A (PCR) (Negative) Influenza Type B (PCR) (Negative) RSV RNA Qual (PCR) (Negative) SARS-CoV-2 RNA (RT-PCR) (Negative) Independent Interpretation I performed an independent interpretation of an: EKG (74 beats per minute otherwise normal ECG without dysrhythmia, AV gian blocks or ST-T changes to suspect underlying ACS, my independent interpretation) Radiology Impression Discussion of test interpretation with radiology: I have reviewed the radiologist's reading. (RDER #: [id number] CT/CT angio chest PE protocol IMPRESSION: 1. There is no evidence of pulmonary embolus or acute aortic syndrome. There is no aneurysm. The aorta is moderately calcified and ectatic. 2. There is COPD present. There are subtle patchy groundglass opacities in both lower lobes, sugge) Prescription Management I considered prescription management with: Pain Medication Chronic Conditions Patient?s care impacted by: Hypertension Critical Care Time Critical Care Time Critical Care Time: Yes Total Critical Care Time: 45 Attestation: Time is exclusive of separately billable procedures. Time includes: direct patient care, patient reassessment, coordination of patient care, interpretation of data (laboratory data, pulse oximetry, arterial blood gases and chest xrays), review of patient's medical records, medical consultation and documentation of patient care. Procedures excluded from critical care time: central intravenous line placement and electrocardiography. Discharge Plan Discharge Clinical Impression: Acute exacerbation of chronic obstructive pulmonary disease Patient Disposition: Admitted As Inpatient Print Language: Serbian
--- NOTE | 2025-05-16 07:26 | ECG_ITS ---
Test Reason : sob Blood Pressure : */* mmHG Vent. Rate : 74 BPM Atrial Rate : 74 BPM P-R Int : 164 ms QRS Dur : 76 ms QT Int : 366 ms P-R-T Axes : 64 31 113 degrees QTcB Int : 406 ms Normal sinus rhythm Possible Inferior infarct (cited on or before 25-Aug-2019) ST & T wave abnormality, consider lateral ischemia Abnormal ECG When compared with ECG of 17-Feb-2025 11:49, T wave inversion now evident in Anterolateral leads Referred By: Julio Chan Electronically Signed By: BREE PAIGE
[2025-05-16] MEDS: Albuterol Sulfate 5 MG, Albuterol/Iprat 2.5/0.5MG 3 ML 3 ML INHALE (07:36)
[2025-05-16 07:43] LABS: Hematocrit 37.9 % (37.0-47.0); Hemoglobin 12.7 g/dl (12.0-16.0); Imm Gran Abs Auto 0.10 X10*3/uL (0.00-0.03); Imm Gran Pct Auto 0.8 % (0.0-0.4); Lymphocytes Absolute Auto 1.4 X10*3/uL (1.2-4.9); MANUAL DIFF FLAG NO; Mean Corpuscular HGB Conc 33.5 g/dl (31.0-35.0); Mean Corpuscular Hemoglobin 31.3 pg (27.0-33.0); Mean Corpuscular Volume 93.3 fL (80.0-98.0); NRBC Abs Auto 0.000 X10*3/uL (0.0-0.012); NRBC Pct Auto 0.0 /100WBC (0.0-0.2); Platelet Count 289 X10*3/uL (160-400); Red Blood Count 4.06 X10*6/uL (4.20-5.50); White Blood Count 12.4 X10*3/uL (4.8-10.8)
--- NOTE | 2025-05-16 07:55 | PC.NURSE ---
Pt brought to ED 7 by manager environmental services. This RN and allergist/md changed patient into hospital gown/placed on rn cardiac cath. Pt a/ox4, neuros intact. Pt noted to have inspiratory/expiratory wheezing bilaterally, continuous O2 prob placed on pt- O2 sats remained >92% on RA, RR >30 with a visible increase WOB/SOB. Pt unable to speak in full sentences- endorsing hx of COPD, was not able to do breathing tx at home this AM, does not wear O2 at baseline. Denies cardiac hx of CHF. Normal sinus on rn cardiac cath, HR 70s, BP Cycling q15 to monitor. Abdomen distended, non-tender on palpation. Pt states she hasn't had a BM in 2.5 days- recently took mag citrated/laxatives with no effect. Hx of constipation. 20g IV placed Left AC. Labs obtained by allergist/md and sent to lab, EKG obtained. Respiratory at bedside for breathing tx. Call sanchez within reach, all needs met at this time.
[2025-05-16 07:56] LABS: Alanine Aminotransferase 11 U/L (0-31); Albumin Level 3.7 g/dL (3.5-5.0); Alkaline Phosphatase 79 U/L (39-117); Anion Gap 15 (12-20); Aspartate Amino Transferase 25 U/L (5-31); Blood Urea Nitrogen 22 mg/dL (9-16); Calcium 10.3 mg/dL (8.4-10.2); Carbon Dioxide 27 mmol/L (22-29); Chloride 101 mmol/L (96-108); Creatinine Clr Calc Pharmacy 24.1; Estimated Glomerular Filt Rate 29; Lipase 17 U/L (8-78); Potassium 3.5 mmol/L (3.3-5.1); Sodium 139 mmol/L (135-145); Total Protein 7.2 g/dL (6.5-8.0)
--- OUTSIDE RECORDS SUMMARY | 2025-05-16 08:03 | XMS_ITS | Clinical Summary ---
Author Organization [facility] ity Address [address] [place] [id number] Care Team Providers Care Line Up Machine Operator Name Role Phone John Thao MD Primary Care Provider [phone] Social History Tobacco Use Types Packs/Day Years [...] age to complete this topic Care Teams Line Up Machine Operator Relationship Specialty Start Date End Date John Thao MD [address] [place] [address] Dr [place] PCP - General Auto Travel Counselor 10/31/18
--- OUTSIDE RECORDS SUMMARY | 2025-05-16 08:03 | XMS_ITS | Clinical Summary ---
Author Organization [facility] Address [address] [place] [phone] Phone Care Team Providers Care Gill Net Stringer Name Role Phone John Thao MD Primary [...] patient's age to complete this topic Insurance [facility] Medicare Medicaid [place] Medicare [facility] Medicaid [place] Care Teams Gill Net Stringer Relationship Specialty Start Date End Date John Thao MD [address] [place] [address] [id number] [place], [place] PCP - General 09/28/20
[2025-05-16 08:04] LABS: Troponin-I High Sensitivity 9.1 ng/L (<3.5-17.0)
[2025-05-16 08:13] LABS: B Type Natriuretic Peptide 147 pg/mL (<100)
[2025-05-16 08:18] LABS: Resp Syncy Virus RNA Qual PCR NEGATIVE (Negative); SARS COV2 PCR INHOUSE NEGATIVE (Negative)
--- NOTE | 2025-05-16 08:41 | PC.NURSE ---
Per - ok to give 1L fluids with elevated BNP.
[2025-05-16 09:38] LABS: Reflex Lactate? Lactic Acid Added
[2025-05-16] MEDS: SODIUM CHLORIDE 2667.12 ML IV (10:24)
--- NOTE | 2025-05-16 10:42 | PHA.MEDREC ---
Addendum entered by Ele Bowen RPh 05/16/25 10:45: reviewed by [facility]. Original Note: Pharmacy Consult ? Medication Reconciliation Pharmacy has completed the medication reconciliation. Patient was able to confirm all her medications. Patient states she no longer takes Impratropium 0.5 mg-Albuterol 3 mg, Lorazepam 0.5 mg ( stooped a few days ago). Patient last had Tramadol 50 mg, Oxycodone 5 mg and Ondansetron 4 mg today and everything else was last night.
[2025-05-16 11:41] LABS: Reflex Lactate? Lactic Acid Added
--- NOTE | 2025-05-16 11:44 | PC.NURSE ---
Per respiratory/MD- ok to remove pt from high flow for CT scan. Pt taken off high flow and transferred to CT scan at this time. O2 sat 90%-93% on RA.
[2025-05-16] MEDS: iohexoL 350 MG/ML 100 ML INFUS..BTL IV (12:11)
[2025-05-16 12:27] LABS: ~Lactic Acid-LAB USE ONLY 2.9 mmol/L (0.5-2.0)
[2025-05-16 12:54] LABS: VBG HCO3 21 mmol/L (22-26); VBG O2 % Saturation 72.0 %
[2025-05-16 12:55] LABS: Venous Blood Gas Refer to POC result
--- NOTE | 2025-05-16 13:25 | PM.IMHP ---
History of Present Illness Date of Service: 05/16/25 Attending physician on admission: Brandie Remy Chief Complaint: sob This is an 84-year-old female with history of asthma/COPD overlap, hypertension, hypothyroidism, anxiety who presented with shortness of breath. Patient reports 2 days of shortness of breath and dry cough. In the emergency department she was afebrile, she was not hypoxic but she was noted to be severely tachypneic. Initially required high-flow oxygen and opiates for increased work of breathing. She received multiple breathing treatments, steroids, pain medication as well as antibiotics in the emergency department. Chest x-ray was unremarkable. CTA was obtained which was negative for PE but did show patchy ground-glass opacities suggesting inflammatory or infectious etiology and diffuse thickening of the small airways suggesting inflammatory airway disease and enlarged main pulmonary artery suggesting pulmonary arterial hypertension. Patient also complained of significant component of anxiety. She was recently seen by her PCP and had stopped taking her sertraline and ativan and at that time she was not interested in any new medications or referral to psychiatry. Review of Systems Review of Systems: Yes all other systems are reviewed and are negative Constitutional: Constitutional: Denies chills and Denies fever(s) ENT: Denies dizziness Cardiovascular: Cardiovascular: Denies chest pain, Denies palpitations and Reports dyspnea Respiratory: Respiratory: Reports cough and Reports dyspnea Gastrointestinal: Gastrointestinal: Denies abdominal pain Neurologic: Denies dizziness Endocrine: Endocrine: Denies palpitations [facility] Medical History Hypothyroidism Acute anxiety Neuropathy of left ulnar nerve at wrist Compression fracture of C1 vertebra 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 difficile colitis Breast cancer Family History Father No problems noted. Mother Breast cancer Sister Breast cancer Surgical History History of esophagogastroduodenoscopy (EGD) H/O colonoscopy H/O lymph node biopsy Hx of cataract surgery History of tonsillectomy and adenoidectomy H/O hysterectomy for benign disease History of total bilateral knee replacement H/O kyphoplasty Social History Household Members: Children Housing: House Are you a primary critical care clinical nurse specialist to a significant other at home: No Do you presently have visiting nurse or other home services: No Alcohol intake: never Patient Tobacco Use Status: Former Tobacco user Smoked in Last 30 Days: No e-Cigarette/Vaping Use: Never Used Use of substances other than those prescribed or required for medical reasons: No Substance Use Type: Marijuana Advance Directives: Yes Advance Directives Information Provided: Yes Advance Directives on File: No Advance Directives Date on File: 02/05/25 Nutrition Risks: No Nutritional Risk service: No Current occupational status: retired Cognitive needs: No Hearing needs: No Vision needs: Yes (rx glasses) Meds Allergies Allergy/AdvReac Type Severity Reaction Status Date / Time gabapentin Allergy Severe severe Verified 05/16/25 06:55 urinary incont. codeine (CODEINE) Allergy Intermediate Rash Verified 05/16/25 06:55 fish derived (FISH) Allergy Intermediate HIVES Verified 05/16/25 06:55 Iodinated Contrast Media (IV Allergy Intermediate HIVES Verified 05/16/25 06:55 Dye, Iodine Containing) nitrofurantoin Allergy Intermediate HIVES Verified 05/16/25 06:55 (Nitrofurantoin) Sulfa (Sulfonamide Allergy Intermediate RASH Verified 05/16/25 06:55 Antibiotics) (SULFA (SULFONAMIDE ANTIBIOTICS)) valsartan (From DIOVAN) Allergy Intermediate HIVES Verified 05/16/25 06:55 vancomycin (VANCOMYCIN) Allergy Intermediate RASH Verified 05/16/25 06:55 Penicillins (PENICILLINS) Allergy Mild RASH Verified 05/16/25 06:55 adhesive (ADHESIVE) Allergy Unknown UNKNOWN Verified 05/16/25 06:55 hydrocodone (Vicodin) Allergy Unknown Unknown Verified 05/16/25 06:55 ibuprofen (IBUPROFEN) AdvReac Unknown UNKNOWN Verified 05/16/25 06:55 Active Medications: Current Medications Acetaminophen (Acetaminophen 325 Mg Tablet) 650 mg PO Q6H PRN PRN Reason: Pain, Mild 1-3,fever,headache Albuterol/Ipratropium (Albuterol/Iprat 2.5/0.5mg 3 Ml Ampul.Neb) 3 ml INHALE Q4H PRN PRN Reason: Shortness of Breath/Wheezing Calcium Carbonate (Calcium Carbonate 750 Mg Tab.Chew) 750 mg PO Q4H PRN PRN Reason: Heartburn Ceftriaxone Sodium (Ceftriaxone Sodium 1 Gm Vial) 1 gm IVPUSH Q24H [facility] Azithromycin 500 mg/ Sodium (Chloride) 250 mls @ 125 mls/hr IV Q24H [facility] Magnesium Hydroxide (Milk Of Magnesia 30 Ml Oral.Susp) 30 ml PO DAILY PRN PRN Reason: Constipation Melatonin (Melatonin 3 Mg Tablet) 6 mg PO BEDTIME PRN PRN Reason: Insomnia Methylprednisolone Sodium Succinate (Methylprednisolone Sod Succ 40 Mg/Ml Vial) 40 mg IVPUSH Q12H [facility] Sodium Chloride (0.9 % Sodium Chloride Flush 3 Ml Syringe) 3 ml IVFLUSH QSHIFT [facility] Home Medications ?Medication ?Instructions ?Recorded ?Confirmed ?Last Taken ?Type metoprolol succinate 50 mg 50 mg PO DAILY 06/15/20 05/16/25 05/14/25 History tablet,extended release 24 hr albuterol sulfate 2.5 mg/3 mL 2.5 mg inhalation Q4H PRN for 03/25/24 05/16/25 Unknown History (0.083 %) solution for nebulization wheezing docusate sodium 100 mg capsule 100 mg PO DAILY 05/16/25 05/16/25 05/14/25 History (Colace) metoclopramide HCl 5 mg tablet 5 mg PO TID 05/16/25 05/16/25 05/14/25 History Physical Exam Vital Signs and Narrative: Vital Signs: Last Vital Signs Temp 99 F 05/16/25 12:00 Pulse 87 05/16/25 12:00 Resp 25 H 05/16/25 12:00 BP 160/81 H 05/16/25 12:00 Pulse Ox 99 05/16/25 12:00 O2 Del Method Room Air 05/16/25 12:00 O2 Flow Rate 45 05/16/25 10:24 FiO2 34.4 05/16/25 10:24 BMI result Body Mass Index 39.6 Const: Other: appears anxious General: alert and awake Orientation/consciousness: patient oriented x3 Resp: Other: tachypneic; expiratory wheeze Cardio: Rate: regular rate GI: Inspection: No distended Palpation (GI): Soft to palpation Neuro: General: patient oriented x3, moves all extremities and CN's II-XI intact bilaterally Extrem: General: No pedal edema Results Labs 05/16/25 07:30 05/16/25 07:30 Labs: Laboratory Results - last 24 hr 05/16/25 05/16/25 05/16/25 07:29 07:30 07:32 MCV 93.3 MCH 31.3 MCHC 33.5 RDW 13.8 Plt Count 289 MPV 9.8 Immature Gran % (Auto) 0.8 H Neut % (Auto) 77.4 H Lymph % (Auto) 11.4 L [place] % (Auto) 7.2 Eos % (Auto) 2.7 Baso % (Auto) 0.5 Lymph # (Auto) 1.4 [place] # (Auto) 0.9 Eos # (Auto) 0.3 Baso # (Auto) 0.1 Abs Immat Gran (auto) 0.10 H Absolute Neuts (auto) 9.6 H Absolute Nucleated RBC 0.000 Nucleated RBC % (auto) 0.0 VBG pH VBG pCO2 VBG pO2 VBG HCO3 VBG O2 Saturation VBG Base Excess Anion Gap 15 Estim Creat Clear Calc 24.1 Estimated GFR 29 Random Glucose 99 Lactic Acid 2.4 H* Lactic Acid F/U @ 2Hr Calcium 10.3 H Total Bilirubin 0.9 AST 25 ALT 11 Alkaline Phosphatase 79 B-Natriuretic Peptide 147 H Total Protein 7.2 Albumin 3.7 Lipase 17 Influenza Type A (PCR) NEGATIVE Influenza Type B (PCR) NEGATIVE RSV RNA Qual (PCR) NEGATIVE SARS-CoV-2 RNA (RT-PCR) NEGATIVE 05/16/25 05/16/25 05/16/25 09:38 12:00 12:48 MCV MCH MCHC RDW Plt Count MPV Immature Gran % (Auto) Neut % (Auto) Lymph % (Auto) [place] % (Auto) Eos % (Auto) Baso % (Auto) Lymph # (Auto) [place] # (Auto) Eos # (Auto) Baso # (Auto) Abs Immat Gran (auto) Absolute Neuts (auto) Absolute Nucleated RBC Nucleated RBC % (auto) VBG pH 7.44 H VBG pCO2 31 VBG pO2 44 VBG HCO3 21 L VBG O2 Saturation 72.0 VBG Base Excess -1.5 Anion Gap Estim Creat Clear Calc Estimated GFR Random Glucose Lactic Acid 3.9 H* Lactic Acid F/U @ 2Hr 2.9 H* Calcium Total Bilirubin AST ALT Alkaline Phosphatase B-Natriuretic Peptide Total Protein Albumin Lipase Influenza Type A (PCR) Influenza Type B (PCR) RSV RNA Qual (PCR) SARS-CoV-2 RNA (RT-PCR) Imaging Radiologist's Impressions: Impressions Chest X-Ray 05/16/25 08:00 IMPRESSION: COPD. No acute cardiopulmonary abnormality. Electronically signed by: Julian Duke MD 05/16/2025 08:20 AM EDT RP Chest CTA 05/16/25 11:45 IMPRESSION: 1. There is no evidence of pulmonary embolus or acute aortic syndrome. There is no aneurysm. The aorta is moderately calcified and ectatic. 2. There is COPD present. There are subtle patchy groundglass opacities in both lower lobes, suggestive of infectious/inflammatory etiology. There is diffuse thickening of the small airways suggesting inflammatory airways disease. 3. There is discoid type atelectasis in both lower lobes, lingula, and posterior left upper lobe. 4. Enlarged main pulmonary artery suggesting pulmonary arterial hypertension. 5. There is mild cardiac enlargement present. No pericardial effusion. 6. There are additional ancillary findings as detailed in the body of the cord. Electronically signed by: Michael Palm MD 05/16/2025 12:36 PM EDT RP Assessment and Plan (1) Asthma-COPD overlap syndrome: Status: Acute (2) COPD exacerbation: Status: Acute Plan This is an 84-year-old female with history of asthma/COPD overlap, hypertension, hypothyroidism, chronic back pain, anxiety who presents to the emergency department with shortness of breath found to be significantly anxious with tachypnea and likely underlying COPD exacerbation Severe Sepsis due to Acute exacerbation of asthma/COPD Due to possible underlying pneumonia complicated by obesity, anxiety and chronic narcotic use met sepsis criteria with leukocytosis, tachypena, lactic acid was elevated at 3.9 got 30cc/kg bolus in ED, LA trending down CT showing patchy groundglass opacities no hypoxia check RPP will treat with IV ceftiraxone/azithromycin system steroids, breathing treatments, supportive treatment for cough Anxiety there seems to be component of anxiety; significant tachypnea without hypoxia stopped taking sertraline and ativan but didn't want alternative medications when seen by PCP last week (sertraline on meds list but no longer taking) would benefit from psych evaluation for medication adjustment pulm HTN check echo CTA negative for PE CKD3 creatinine near baseline follow BMP Hypothyroidism Continue Synthroid Hypertension Continue hydrochlorothiazide, metoprolol Gastroparesis Continue scheduled Reglan Chronic back pain Continue tramadol, oxycodone Morbid obesity BMI 39.6 Contributing to respiratory symptoms weight loss encouraged h/o BCA s/p radiation and 5 years of tamoxifen dvt ppx - lovenox Patient will likely require two midnight stay in the hospital for management of copd/asthma, possible pneumonia requiring IV antibiotics, IV steroids and new pulmonary hypertension requiring additional workup Quality Stroke Does the patient have a stroke diagnosis?: No VTE Prior VTE?: No VTE Risk Level:: Medical - moderate - high VTE Device Contraindication: N/A - Device Ordered VTE Drug Contraindication: N/A - Med Ordered
[2025-05-16 14:04] LABS: Reflex Lactate? 2 Y
[2025-05-16 14:06] LABS: Cancel Lactic Acid Canceled
[2025-05-16] MEDS: oxyCODONE HCl Immed Release 5 MG TABLET PO (14:36)
[2025-05-16] MEDS: Albuterol/Iprat 2.5/0.5MG 3 ML AMPUL.NEB INHALE ×2 (15:36→19:16)
[2025-05-16 16:10] LABS: Chlamydia pneumoniae PCR Not Detected (Not Detect.); Coronavirus 229E PCR Not Detected (Not Detect.); Coronavirus HKU1 PCR Not Detected (Not Detect.); Coronavirus NL63 PCR Not Detected (Not Detect.); Coronavirus OC43 PCR Not Detected (Not Detect.); RSV PCR Not Detected (Not Detect.); Rhino/Enterovirus PCR Not Detected (Not Detect.)
[2025-05-16 16:34] LABS: Influenza A H1 PCR Not Detected (Not Detect.); Influenza A H1-2009 PCR Not Detected (Not Detect.); Influenza A H3 PCR Not Detected (Not Detect.); SARS-CoV-2 PCR Not Detected (Not Detect.)
--- NOTE | 2025-05-16 17:00 | CA_ITS ---
Transthoracic Echocardiogram Patient (Last, First, Middle): Joelle Keller C Gender: Female Date of : 1940 Age: 84 Procedure Date: 05/16/2025 Procedure Type: Transthoracic Echocardiogram Location: ER Height: 149.86 cm Weight: 88.91 kg BSA: 1.83 m2 Heart Rate: bpm BP: 122 / 75 mmHg Gym Supervisor: Referring MD: Silvana HORTA Symptoms: pulm HTN Study Quality: Good ECG Rhythm: Sinus Conclusions: - The left ventricular systolic function is hyperdynamic. The visually estimated ejection fraction is >70%. - Aortic valve sclerosis but no significant stenosis. - There is no evidence of pulmonary hypertension. Findings Left Ventricle Normal left ventricular cavity size. There is mildly increased left ventricular wall thickness. The left ventricular systolic function is hyperdynamic. The visually estimated ejection fraction is >70%. There is no evidence of regional wall motion abnormalities. Diastolic function is normal for age. Right Ventricle Normal right ventricular cavity size and systolic function. Atria Both atria are normal in size. Aortic Valve There is mild calcification of the aortic valve. There is no aortic valve regurgitation. No significant aortic stenosis. Mitral Valve The mitral valve appears normal. There is no mitral valve regurgitation. There is no mitral valve stenosis. Pulmonic Valve The pulmonic valve is likely normal. Tricuspid Valve There is mild tricuspid valve regurgitation. There is no evidence of pulmonary hypertension. Great Vessels The asc aorta is normal in size. Venous The inferior vena cava is normal in size and collapses greater than 50% with inspiration. Pericardium/Pleural There is no evidence of pericardial effusion. Prior Study Comparison No significant change compared to prior study dated: 02/17/2018. Measurements 2D Linear Measurements IVSd: 1.23 0.6-0.9/0.6-1.0 cm LVIDd: 4.19 3.9-5.3/4.2-5.9 cm LVIDd Index: 2.29 2.4-3.2/2.2-3.1 cm/m2 LVIDs: 2.73 2.0-3.6 cm LVPWd: 1.25 0.7-1.1 cm Ao Root: 3.60 2.1-3.5 cm LA Diam: 3.50 2.7-3.8/3.0-4.0 cm LAIDs Index: 1.91 1.5-2.3 cm/m2 LV Mass: 232.11 67-162/88-224 g LV Mass Index: 126.84 43-95/49-115 g/m2 LVOT Diam: 2.10 3.0+(-)1.3 cm 2D Systolic Function EF 4C: 71.90 >55% EF 2C: 67.20 >55% EF BiP: 68.10 >55% Mitral Valve MV Pk E: 0.83 MV PK A: 1.25 MV Decel Time: 132.00 E/A: 0.70 E'Lateral: 8.05 E'Medial: 5.77 E/E' Med: 14.30 E/E' Lat: 10.30 PHT: 39.00 MVA PHT: 5.64 Decel Simpson: 6.26 Aortic Valve AoV Pk Mervin: 2.50 AoV Mn Mervin: 1.68 AoV VTI: 0.43 AoV Pk Grad: 25.00 Aov Mn Grad: 13.00 LEN Cont.VTI: 2.28 LVOT LVOT Pk Mervin: 1.43 LVOT Mn Mervin: 0.97 LVOT VTI: 0.29 LVOT Pk Grad: 8.00 LVOT Mn Grad: 5.00 LVOT Diam: 2.10 LVOT Area: 3.46 Diastolic Function MV Pk E: 0.83 MV Pk A: 1.25 E/A: 0.70 E'Medial: 5.77 E/E' Med: 14.30 E' Laterial: 8.05 E/E' Lat: 10.30 Right Ventricle TAPSE (mm): 26.00 TVS' Mervin: 15.00 Tricuspid Valve TR Pk Mervin: 2.79 TR Pk Grad: 31.00 RA Press: 3.00 RVSP: 34.00 Great Vessels Aorta Ao Root-2D: 3.60 2.0-3.7 cm Ao Asc: 3.50 2.1-3.4 cm Pulmonary Valve PV Pk Mervin: 1.17 Peak PV Grad: 5.00 Updated in Other Vendor System with Status of Final Deng Zapata MD electronically signed on 05/17/2025 9:40:45 AM with status of Final
[2025-05-16] MEDS: 0.9 % Sodium Chloride Flush 3 ML SYRINGE IVFLUSH (20:40)
[2025-05-17] VITALS (10 sets, daily range): BP systolic 122–150; BP diastolic 63–84; PULSE 94–107; RESP 18–22; TEMP 36.5–36.9; O2SAT 92–99
[2025-05-17] MEDS: Albuterol/Iprat 2.5/0.5MG 3 ML AMPUL.NEB INHALE ×4 (04:53→19:35)
[2025-05-17] MEDS: 0.9 % Sodium Chloride Flush 3 ML SYRINGE IVFLUSH ×3 (08:37→20:39)
[2025-05-17] MEDS: Metoprolol Succinate ER 50 MG TAB.ER.24H PO (08:38)
[2025-05-17] MEDS: Budesonide DR 3 MG Capsule 6 MG PO (08:40)
[2025-05-17 08:44] LABS: Anion Gap 16 (12-20); Blood Urea Nitrogen 22 mg/dL (9-16); Calcium 9.3 mg/dL (8.4-10.2); Carbon Dioxide 21 mmol/L (22-29); Chloride 108 mmol/L (96-108); Creatinine Clr Calc Pharmacy 33.0; Estimated Glomerular Filt Rate 38; Potassium 3.0 mmol/L (3.3-5.1); Sodium 142 mmol/L (135-145)
--- NOTE | 2025-05-17 11:01 | P.PNIM_ITS ---
Subjective Subjective Date of Service: 05/17/25 Review of Systems Follow up PNA, COPD still some wheezing, no sob Physical Exam 2 Exam: Exam: Appearing in no acute distress lung sounds are clear to auscultation heart regular rate rhythm, clear S1, S2 positive bowel sounds, abdomen is soft, nontender neuro patient is alert x3, no focal deficits Vital Signs: Vital Signs: Last Vital Signs Temp 98.0 F 05/17/25 07:58 Pulse 97 05/17/25 07:58 Resp 18 05/17/25 07:58 BP 133/65 05/17/25 07:58 Pulse Ox 95 05/17/25 07:58 O2 Del Method Room Air 05/17/25 07:58 O2 Flow Rate 2 05/16/25 23:30 FiO2 34.4 05/16/25 10:24 BMI result Body Mass Index 44.6 Objective Data Active Medications Acetaminophen (Acetaminophen 325 Mg Tablet) 650 mg PO Q6H PRN PRN Reason: Pain, Mild 1-3,fever,headache Last Admin: 05/16/25 18:08 Dose: 650 mg Documented By: RIKKI Albuterol/Ipratropium (Albuterol/Iprat 2.5/0.5mg 3 Ml Ampul.Neb) 3 ml INHALE Q4H PRN PRN Reason: Shortness of Breath/Wheezing Last Admin: 05/17/25 04:53 Dose: 3 ml Documented By: ALL Albuterol/Ipratropium (Albuterol/Iprat 2.5/0.5mg 3 Ml Ampul.Neb) 3 ml INHALE RQ6H WHILE AWAKE [facility] Last Admin: 05/17/25 07:44 Dose: 3 ml Documented By: JOSE Budesonide (Budesonide Dr 3 Mg Capsule) 6 mg PO DAILY [facility] Last Admin: 05/17/25 08:40 Dose: 6 mg Documented By: USMAN Calcium Carbonate (Calcium Carbonate 750 Mg Tab.Chew) 750 mg PO Q4H PRN PRN Reason: Heartburn Last Admin: 05/16/25 22:35 Dose: 750 mg Documented By: ALL Ceftriaxone Sodium (Ceftriaxone Sodium 1 Gm Vial) 1 gm IVPUSH Q24H [facility] Last Admin: 05/17/25 08:37 Dose: 1 gm Documented By: USMAN Docusate Sodium (Docusate Sodium 100 Mg Capsule) 100 mg PO DAILY [facility] Last Admin: 05/17/25 08:39 Dose: 100 mg Documented By: USMAN Docusate Sodium (Docusate Sodium 100 Mg Capsule) 100 mg PO BID PRN PRN Reason: Constipation Enoxaparin Sodium (Enoxaparin Sodium 40 Mg/0.4 Ml Syringe) 40 mg SUBCUT Q24H [facility] Hydrochlorothiazide (Hydrochlorothiazide 25 Mg Tablet) 25 mg PO DAILY [facility]; Protocol Last Admin: 05/17/25 08:44 Dose: 25 mg Documented By: USMAN Azithromycin 500 mg/ Sodium (Chloride) 250 mls @ 125 mls/hr IV Q24H [facility] Last Infusion: 05/16/25 18:03 Dose: Infused Documented By: RIKKI Levothyroxine Sodium (Levothyroxine Sodium 50 Mcg Tablet) 50 mcg PO DAILY@0600 [facility] Last Admin: 05/17/25 05:59 Dose: 50 mcg Documented By: ALL Magnesium Hydroxide (Milk Of Magnesia 30 Ml Oral.Susp) 30 ml PO DAILY PRN PRN Reason: Constipation Melatonin (Melatonin 3 Mg Tablet) 6 mg PO BEDTIME PRN PRN Reason: Insomnia Methylprednisolone Sodium Succinate (Methylprednisolone Sod Succ 40 Mg/Ml Vial) 40 mg IVPUSH Q12H [facility] Last Admin: 05/17/25 08:37 Dose: 40 mg Documented By: USMAN Metoclopramide HCl (Metoclopramide Hcl 5 Mg Tablet) 5 mg PO TID [facility] Last Admin: 05/17/25 08:45 Dose: 5 mg Documented By: USMAN Metoprolol Succinate (Metoprolol Succinate Er 50 Mg Tab.Er.24h) 50 mg PO DAILY [facility]; Protocol Last Admin: 05/17/25 08:38 Dose: 50 mg Documented By: USMAN Omeprazole (Omeprazole 20 Mg Capsule.) 20 mg PO DAILY@0630 [facility] Last Admin: 05/17/25 05:59 Dose: 20 mg Documented By: ALL Oxycodone HCl (Oxycodone Hcl Immed Release 5 Mg Tablet) 5 mg PO QID PRN PRN Reason: severe pain Last Admin: 05/16/25 14:36 Dose: 5 mg Documented By: HO.GENTILJ Polyethylene Glycol (Polyethylene Glycol 3350 17 Gm Powd.Pack) 17 gm PO DAILY PRN PRN Reason: Constipation Senna (Sennosides 8.6 Mg Tablet) 17.2 mg PO DAILY PRN PRN Reason: Constipation Sodium Chloride (0.9 % Sodium Chloride Flush 3 Ml Syringe) 3 ml IVFLUSH QSHIFT [facility] Last Admin: 05/17/25 08:37 Dose: 3 ml Documented By: USMAN Tramadol HCl (Tramadol Hcl 50 Mg Tablet) 50 mg PO BID [facility] Last Admin: 05/17/25 08:38 Dose: 50 mg Documented By: USMAN Labs 05/16/25 07:30 05/17/25 07:19 Labs: Laboratory Results - last 24 hr 05/16/25 05/16/25 05/16/25 12:00 12:48 14:26 Hold Purple Top VBG pH 7.44 H VBG pCO2 31 VBG pO2 44 VBG HCO3 21 L VBG O2 Saturation 72.0 VBG Base Excess -1.5 Anion Gap Estim Creat Clear Calc Estimated GFR Random Glucose Lactic Acid F/U @ 2Hr 2.9 H* Calcium Respiratory Panel [place] See Note Adenovirus (Rapid PCR) Not Detected B.pert (TEM-PCR) Not Detected B.parapertussis DNA PCR Not Detected C. pneumoniae DNA (PCR) Not Detected Coronavirus OC43 (PCR) Not Detected Coronavirus HKU1 (PCR) Not Detected Coronavirus 229E (PCR) Not Detected Coronavirus NL63 (PCR) Not Detected Human Metapneumovir PCR Not Detected Influenza A (RT-PCR) Not Detected Influenza A (H1) PCR Not Detected Influ A (H1/09) PCR Not Detected Influenza A (H3) PCR Not Detected Influenza B (RT-PCR) Not Detected M. pneumoniae (PCR) Not Detected Parainfluenza 1 (PCR) Not Detected Parainfluenza 2 (PCR) Not Detected Parainfluenza 3 (PCR) Not Detected Parainfluenza 4 (PCR) Not Detected RSV (PCR) Not Detected Entero/Rhino (PCR) Not Detected SARS-CoV-2 RNA (RT-PCR) Not Detected 05/17/25 07:19 Hold Purple Top SEE NOTE VBG pH VBG pCO2 VBG pO2 VBG HCO3 VBG O2 Saturation VBG Base Excess Anion Gap 16 Estim Creat Clear Calc 33.0 Estimated GFR 38 Random Glucose 127 H Lactic Acid F/U @ 2Hr Calcium 9.3 D Respiratory Panel [place] Adenovirus (Rapid PCR) B.pert (TEM-PCR) B.parapertussis DNA PCR C. pneumoniae DNA (PCR) Coronavirus OC43 (PCR) Coronavirus HKU1 (PCR) Coronavirus 229E (PCR) Coronavirus NL63 (PCR) Human Metapneumovir PCR Influenza A (RT-PCR) Influenza A (H1) PCR Influ A (H1/09) PCR Influenza A (H3) PCR Influenza B (RT-PCR) M. pneumoniae (PCR) Parainfluenza 1 (PCR) Parainfluenza 2 (PCR) Parainfluenza 3 (PCR) Parainfluenza 4 (PCR) RSV (PCR) Entero/Rhino (PCR) SARS-CoV-2 RNA (RT-PCR) Microbiology Microbiology Results: Microbiology 05/16/25 07:33 Blood Culture - Preliminary Blood - Venous No growth after 24 hours. 05/16/25 07:31 Blood Culture - Preliminary Blood - Venous No growth after 24 hours. Assessment and Plan (1) COPD exacerbation: Status: Acute Plan 84-year-old female with history of asthma/COPD overlap, hypertension, hypothyroidism, chronic back pain, anxiety who presented to the emergency department with shortness of breath found to be significantly anxious with tachypnea and likely underlying COPD exacerbation Severe Sepsis due to Acute exacerbation of asthma/COPD/Pneumonia. Sepsis resolved met sepsis criteria with leukocytosis, tachypena, lactic acid was elevated at 3.9, 30cc/kg bolus in ED CT showing patchy groundglass opacities no hypoxia neg RPP continue IV ceftiraxone/azithromycin system steroids, breathing treatments, supportive treatment for cough Anxiety there seems to be component of anxiety; significant tachypnea without hypoxia stopped taking sertraline and ativan but didn't want alternative medications when seen by PCP last week would benefit from psych evaluation for medication adjustment Hx Pulm HTN Echo with EF of 70%, aortic valve sclerosis but no significant stenosis, no evidence of pulmonary hypertension CTA negative for PE CKD3 creatinine near baseline follow BMP Hypothyroidism Continue Synthroid Hypertension Continue hydrochlorothiazide, metoprolol Gastroparesis Continue scheduled Reglan Chronic back pain Continue tramadol, oxycodone Morbid obesity BMI 44.6 Discussed importance of weight management as this may be contributing to worsening of other comorbidities h/o BCA s/p radiation and 5 years of tamoxifen dvt ppx - lovenox Full code Quality Stroke Does the patient have a stroke diagnosis?: No VTE Prior VTE?: No VTE Risk Level:: Medical - moderate - high VTE Device Contraindication: N/A - Device Ordered VTE Drug Contraindication: N/A - Med Ordered
[2025-05-17] MEDS: Potassium Chloride ER 20 MEQ TAB.ER.PRT 40 MEQ PO ×2 (12:55→20:39)
--- NOTE | 2025-05-17 14:21 | MHC.CM.PN ---
IMM 05/17/25, Pt. lives with her son, her PCP is: Ellie Marcos, HCP is her son, copy to be requested from PCP office. Pt. does not use home health services. For DME, she has a nebulizer, cane and walker. Her son will transport her home at [place]. DCP: home with services, CM to follow for [place] needs.
[2025-05-17] MEDS: Milk of Magnesia 30 ML ORAL.SUSP PO (15:19)
[2025-05-17] MEDS: oxyCODONE HCl Immed Release 5 MG TABLET PO (15:25)
[2025-05-18 03:38] VITALS: BP 148/77; PULSE 95; RESP 18; TEMP 36.4; O2SAT 94
[2025-05-18] MEDS: Albuterol/Iprat 2.5/0.5MG 3 ML AMPUL.NEB INHALE ×2 (05:03→07:36)
[2025-05-18 07:38] VITALS: PULSE 96; RESP 20; O2SAT 94
[2025-05-18 07:52] VITALS: BP 141/72; PULSE 97; RESP 22; TEMP 36.9; O2SAT 96
[2025-05-18] MEDS: Potassium Chloride ER 20 MEQ TAB.ER.PRT 40 MEQ PO (08:38)
[2025-05-18] MEDS: Budesonide DR 3 MG Capsule 6 MG PO (08:38)
[2025-05-18] MEDS: 0.9 % Sodium Chloride Flush 3 ML SYRINGE IVFLUSH (08:39)
[2025-05-18] MEDS: Metoprolol Succinate ER 50 MG TAB.ER.24H PO (08:39)
[2025-05-18 09:50] LABS: Potassium 4.2 mmol/L (3.3-5.1)
--- NOTE | 2025-05-18 09:50 | PM.DS ---
DS: Providers Provider Date of Service: 05/18/25 Date of admission: 05/16/25 13:27 Date of discharge: 05/18/25 Primary care physician: Unknown Physician Consults: 05/16/25 13:21 Consult to Psychiatry Routine Consulting Provider: [facility] Psych Covering Reason for consultation: anxiety,?med adjustment Has provider been notified: No DS: Diagnosis Discharge Diagnosis (1) COPD exacerbation: Status: Acute DS: Summary Hospital Course Hospital Course: History and physical as per admitting provider. This is an 84-year-old female with history of asthma/COPD overlap, hypertension, hypothyroidism, anxiety who presented with shortness of breath. Patient reports 2 days of shortness of breath and dry cough. In the emergency department she was afebrile, she was not hypoxic but she was noted to be severely tachypneic. Initially required high-flow oxygen and opiates for increased work of breathing. She received multiple breathing treatments, steroids, pain medication as well as antibiotics in the emergency department. Chest x-ray was unremarkable. CTA was obtained which was negative for PE but did show patchy ground-glass opacities suggesting inflammatory or infectious etiology and diffuse thickening of the small airways suggesting inflammatory airway disease and enlarged main pulmonary artery suggesting pulmonary arterial hypertension. Patient also complained of significant component of anxiety. She was recently seen by her PCP and had stopped taking her sertraline and ativan and at that time she was not interested in any new medications or referral to psychiatry. 84-year-old woman treated for severe sepsis secondary to acute COPD exacerbation and pneumonia. CT showed patchy ground-glass opacities, no hypoxia, negative respiratory pathogen panel. Treated with IV ceftriaxone azithromycin as well as IV steroids, scheduled breathing treatments. At this time patient is stable, not requiring oxygen. She will be sent home to complete antibiotic therapy and short prednisone taper. Anxiety. Currently not taking any medications, she should follow up with her primary care provider. History of pulmonary hypertension. Echo with EF of 70%, no evidence of pulmonary hypertension, CTA negative for PE CKD stage 3. At baseline Hypothyroidism. Continue levothyroxine Hypertension. As needed hydrochlorothiazide and metoprolol Gastroparesis. Continue scheduled Reglan Chronic back pain. Continue tramadol and oxycodone Morbid obesity. BMI 44.6 Discussed importance of weight management as this may be contributing to worsening of other comorbidities Time Attestation Discharge Coordination Time (in mins): 42 Quality: Safe Use of Opioids Does Pt have an Active Cancer Diagnosis on the Problem List?: No Quality: Stroke Does the patient have a stroke diagnosis?: No Physical Exam Exam: Exam: Appearing in no acute distress head is normocephalic atraumatic eyes pupils are PERRLA sclera is anicteric mouth throat mucous membranes are intact and moist neck is supple no lymphadenopathy, no JVD noted lung sounds are clear to auscultation heart regular rate rhythm, clear S1, S2 positive bowel sounds, abdomen is soft, nontender neuro patient is alert x3, no focal deficits Vital Signs: Vital Signs: Last Vital Signs Temp 98.4 F 05/18/25 07:52 Pulse 97 05/18/25 07:52 Resp 22 H 05/18/25 07:52 BP 141/72 H 05/18/25 07:52 Pulse Ox 96 05/18/25 07:52 O2 Del Method Room Air 05/18/25 07:52 O2 Flow Rate 2 05/16/25 23:30 FiO2 34.4 05/16/25 10:24 BMI result Body Mass Index 44.6 DS: Data Data Completed and Pending Labs on day of discharge: Laboratory Results - last 24 hr 05/18/25 08:34 Hold Purple Top SEE NOTE Preliminary micro results at discharge 05/16/25 07:33 Blood Culture - Preliminary Blood - Venous No growth after 48 hours. 05/16/25 07:31 Blood Culture - Preliminary Blood - Venous No growth after 48 hours. Discharge Plan Discharge Anticipated Discharge Date/Time: 05/18/25 09:45 Patient Disposition: Home, Self-Care Discharge Diagnosis: COPD exacerbation Discharge Medications: New cefuroxime axetil 500 mg tablet 500 mg PO Q12H Qty: 6 0RF azithromycin 500 mg tablet 500 mg PO DAILY 3 Days Qty: 3 0RF prednisone 10 mg tablet 40 mg PO DIRECTED Qty: 16 0RF Rx Instructions: Take 40 mg for 4 days Continued budesonide 3 mg capsule,delayed,extend.release 6 mg PO DAILY Qty: 30 6RF albuterol sulfate 90 mcg/actuation HFA aerosol inhaler 2 puff inhalation Q6H PRN (Reason: Shortness Of Breath Or Wheezing) Qty: 1 3RF levothyroxine 50 mcg tablet 50 mcg PO DAILY@0600 Qty: 90 1RF hydrochlorothiazide 25 mg tablet 25 mg PO DAILY Qty: 90 1RF tramadol 50 mg tablet 50 mg PO BID Qty: 60 0RF metoclopramide HCl 5 mg tablet 5 mg PO TID docusate sodium [Colace] 100 mg capsule 100 mg PO DAILY metoprolol succinate 50 mg tablet extended release 24 hr 50 mg PO DAILY oxycodone 5 mg tablet 5 mg PO QID PRN (Reason: severe pain) Qty: 120 0RF ondansetron HCl 4 mg tablet 4 mg PO Q8H PRN (Reason: for nausea/vomiting) Qty: 90 3RF albuterol sulfate 2.5 mg /3 mL (0.083 %) solution for nebulization 2.5 mg inhalation Q4H PRN (Reason: for wheezing) rabeprazole [AcipHex] 20 mg tablet,delayed release (DR/EC) 20 mg PO DAILY Qty: 90 3RF sertraline 25 mg tablet 25 mg PO DAILY Qty: 45 1RF Discharge Orders: Discharge Order (Routine); Ordered 05/18/25 Ordered By: Cinthia Gross Diet: Advance to usual diet Activity on Discharge: As tolerated Stand Alone Forms: Patient Portal Discharge page Print Language: Ethiopian Care Plan Goals: Complete antibiotic therapy Complete short prednisone taper Health Concerns: COPD exacerbation Plan of Treatment: Follow up with primary care provider as needed Take all medications as prescribed Assessment: See discharge summary
--- NOTE | 2025-05-18 10:04 | MHC.CM.PN ---
Pt. has been medically cleared to go home, her son will transport her home, plan is self care.
== END 2025-05-18 11:51 | disposition home or self-care (01) | DRG 871 ==
LOC: HO.ED 12:58 → HO.EDOVER 13:27 → HO.IMC 16:39
PROVIDERS: Admitting Provider Physician Assistant Medical; Emergency Provider Emergency Medicine; Visit Provider Nurse Practitioner Acute Care
DX: A41.9 Sepsis, unspecified organism (principal); J18.9 Pneumonia, unspecified organism; J44.1 Chronic obstructive pulmonary disease with (acute) exacerbation; J45.901 Unspecified asthma with (acute) exacerbation; J44.0 Chronic obstructive pulmonary disease with (acute) lower respiratory infection; E03.9 Hypothyroidism, unspecified; I27.20 Pulmonary hypertension, unspecified; F41.9 Anxiety disorder, unspecified; I12.9 Hypertensive chronic kidney disease with stage 1 through stage 4 chronic kidney disease, or unspecified chronic kidney disease; M54.9 Dorsalgia, unspecified; E66.01 Morbid (severe) obesity due to excess calories; Z68.39 Body mass index [BMI] 39.0-39.9, adult; Z71.3 Dietary counseling and surveillance; G89.29 Other chronic pain; R65.20 Severe sepsis without septic shock; N18.30 Chronic kidney disease, stage 3 unspecified; Z20.822 Contact with and (suspected) exposure to COVID-19; Z85.3 Personal history of malignant neoplasm of breast; Z92.3 Personal history of irradiation; Z87.891 Personal history of nicotine dependence; Z79.890 Hormone replacement therapy; Z79.899 Other long term (current) drug therapy
CPT/HCPCS: 36415; 71045; 71275; 80048; 80053; 82803; 83605; 83690; 83880; 84132; 84484; 85025; 87040; 87633; 87637; 93005; 93306; 94640; 99285; J0131; J0456; J0696; J1200; J1650; J2919; J3010; Q9967

== ENCOUNTER → 2025-05-16 07:26 | Outpatient (BNV) | payer MEDICARE, SELFPAY | PROVIDERS: Emergency Provider Emergency Medicine; Visit Provider Radiology Diagnostic Radiology | DX: R91.8 Other nonspecific abnormal finding of lung field (principal); J44.9 Chronic obstructive pulmonary disease, unspecified; J98.11 Atelectasis; I77.819 Aortic ectasia, unspecified site | CPT/HCPCS: 71045; 71275 ==

== ENCOUNTER → 2025-05-16 07:26 | Outpatient (BNV) | payer MEDICARE, SELFPAY | PROVIDERS: Admitting Provider Physician Assistant Medical; Emergency Provider Emergency Medicine; Visit Provider Internal Medicine | DX: R94.31 Abnormal electrocardiogram [ECG] [EKG] (principal); R06.02 Shortness of breath | CPT/HCPCS: 93010 ==

== ENCOUNTER → 2025-05-16 13:27 | Outpatient (BNV) | payer MEDICARE, SELFPAY | PROVIDERS: Admitting Provider Physician Assistant Medical; Emergency Provider Emergency Medicine; Visit Provider Physician Assistant Medical | DX: J44.1 Chronic obstructive pulmonary disease with (acute) exacerbation (principal) | CPT/HCPCS: 99223; 99232; 99239 ==

== ENCOUNTER 2025-05-23 15:18 | Outpatient (AMB) | payer MEDICARE, SELFPAY ==
[2025-05-23 15:21] VITALS: BP 133/76; PULSE 64; RESP 20; TEMP 36.2; O2SAT 96; BMI 38.8
--- NOTE | 2025-05-23 15:21 | A.OFFVIS_ITS ---
Vital Signs 05/23/25 15:21 Height 4 ft 11 in Weight 87.092 kg BMI 38.8 BP 133/76 Blood Pressure Location Lt brachial Position Sitting Respiration 20 Pulse 64 Pulse Source Pulse Oximeter Temp 97.1 F Temp Source Oral Pulse Oximetry (%) 96 Oxygen Delivery Method Room Air Intake Visit Reasons: ED follow up Intake Note: Patient presents for follow up on ED visit. Allergies gabapentin Allergy (Severe, Verified 05/16/25 06:55) severe urinary incont. codeine (CODEINE) Allergy (Intermediate, Verified 05/16/25 06:55) Rash fish derived (FISH) Allergy (Intermediate, Verified 05/16/25 06:55) HIVES Iodinated Contrast Media (IV Dye, Iodine Containing) Allergy (Intermediate, Verified 05/16/25 06:55) HIVES nitrofurantoin (Nitrofurantoin) Allergy (Intermediate, Verified 05/16/25 06:55) HIVES Sulfa (Sulfonamide Antibiotics) (SULFA (SULFONAMIDE ANTIBIOTICS)) Allergy (Intermediate, Verified 05/16/25 06:55) RASH valsartan (From DIOVAN) Allergy (Intermediate, Verified 05/16/25 06:55) HIVES vancomycin (VANCOMYCIN) Allergy (Intermediate, Verified 05/16/25 06:55) RASH Penicillins (PENICILLINS) Allergy (Mild, Verified 05/16/25 06:55) RASH adhesive (ADHESIVE) Allergy (Unknown, Verified 05/16/25 06:55) UNKNOWN hydrocodone (Vicodin) Allergy (Unknown, Verified 05/16/25 06:55) Unknown ibuprofen (IBUPROFEN) Adverse Reaction (Unknown, Verified 05/16/25 06:55) UNKNOWN Medication List - Last Reconciled 05/23/25 by MYCHAL Mcarthur albuterol sulfate 90 mcg/actuation 2 puffs inhalation Q6H PRN albuterol sulfate 2.5 mg inhalation Q4H PRN budesonide DR-ER 6 mg (2 x 3 mg) PO DAILY docusate sodium (Colace) 100 mg PO DAILY hydrochlorothiazide 25 mg PO DAILY levothyroxine 50 mcg PO DAILY@0600 metoprolol succinate ER 50 mg PO DAILY ondansetron HCl 4 mg PO Q8H PRN oxycodone 5 mg PO QID PRN polyethylene glycol 3350 (Miralax) 17 grams PO DAILY rabeprazole (AcipHex) 20 mg PO DAILY sertraline 25 mg PO DAILY tramadol 50 mg PO BID HPI Comments Details: 84-year-old female with history of asthma/COPD overlap, hypertension, hy pothyroidism, anxiety presenting to the office today for hospital discharge follow-up. She was admitted to [facility] from 05/16-04/20 due to COPD exacerbation. She was also found to have pneumonia. CT of the chest showed patchy ground-glass opacities. Respiratory pathogen panel was negative and she was not hypoxic. She was septic with leukocytosis of 12.4 with tachycardia however this resolved with IV ceftriaxone azithromycin as well as IV steroids and DuoNebs. She was discharged home on cefuroxime, azithromycin, and prednisone which she completed. She reports she is feeling much better. She states that her anxiety has also improved which is likely helping with her work of breathing. Concerns: None ROS: See HPI EXAM: Constitutional - Awake and Alert, No apparent distress Eyes - PERRL Cardiovascular - S1S2, RRR, No edema Respiratory - Normal lung expansion, Normal respiratory effort, No respiratory distress, scattered expiratory wheezes, otherwise clear to auscultation Extremities - no calf tenderness bilaterally, no swelling Skin - Warm/Dry Neurological - Alert & oriented x3 Psychological - Appropriate affect [facility] Medical History (Updated 05/23/25 @ 17:46 by MYCHAL Mcarthur) COPD (chronic obstructive pulmonary disease) Hypothyroidism Acute anxiety Neuropathy of left ulnar nerve at wrist Compression fracture of C1 vertebra 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 difficile colitis Breast cancer Surgical History History of esophagogastroduodenoscopy (EGD) H/O colonoscopy H/O lymph node biopsy Hx of cataract surgery History of tonsillectomy and adenoidectomy H/O hysterectomy for benign disease History of total bilateral knee replacement H/O kyphoplasty Family History Father No problems noted. Mother Breast cancer Sister Breast cancer Social History Household Members: Children Household Members Other:: Jeremy Jordan Housing: House Are you a primary long term care administrator to a significant other at home: No Do you presently have visiting nurse or other home services: No Alcohol intake: never Patient Tobacco Use Status: Former Tobacco user e-Cigarette/Vaping Use: Never Used Substance Use Type: Marijuana Advance Directives Date on File: 05/16/25 service: No Current occupational status: retired Cognitive needs: No Hearing needs: No Vision needs: Yes (rx glasses) Physical Exam Vital Signs: Last Vital Signs Temp 97.1 F 05/23/25 15:21 Pulse 64 05/23/25 15:21 Resp 20 05/23/25 15:21 BP 133/76 05/23/25 15:21 Pulse Ox 96 05/23/25 15:21 Oxygen Delivery Method Room Air 05/23/25 15:21 BMI result Body Mass Index 38.8 Assessment & Plan Assessment & Plan (1) Anxiety: Code(s): F41.9 - Anxiety disorder, unspecified Category: Medical Plan: Continue sertraline. Greatly improved. (2) COPD (chronic obstructive pulmonary disease): Code(s): J44.9 - Chronic obstructive pulmonary disease, unspecified Category: Medical Plan: Much improved. Pneumonia resolved. Completed antibiotic course as well as prednisone taper. She will continue on maintenance inhalers as well as albuterol as needed. Follow-up with pulmonology as scheduled. (3) Hospital discharge follow-up: Code(s): Z09 - Encounter for follow-up examination after completed treatment for conditions other than malignant neoplasm Plan: Hospital notes reviewed including ER provider note, H&P, discharge summary, CT of the chest, labs. Discharge medications reviewed and reconciled Plan Follow-up in the office for follow-up as scheduled Medications: New polyethylene glycol 3350 (Miralax) 17 grams PO DAILY 238 grams 1RF Discontinued prednisone Take 40 mg for 4 days Discontinued Reason: Doctor's Order 40 mg (4 x 10 mg) PO DIRECTED 16 tabs 0RF azithromycin Discontinued Reason: Doctor's Order 500 mg PO DAILY 3 days 3 tabs 0RF cefuroxime axetil Discontinued Reason: Doctor's Order 500 mg PO Q12H 6 tabs 0RF Coding Level of Care Code Est Pt Level 4 (52366) Diagnoses Anxiety F41.9 COPD (chronic obstructive pulmonary disease) J44.9 Hospital discharge follow-up Z09
--- OUTSIDE RECORDS SUMMARY | 2025-05-23 15:30 | XMS_ITS | Clinical Summary ---
Author Organization [facility] ity Address [id number] [place] [id number] Care Team Providers Care Data Examination Clerk Name Role Phone John Thao MD Primary Care Provider [phone] Social History Tobacco Use Types Packs/Day Years [...] age to complete this topic Care Teams Data Examination Clerk Relationship Specialty Start Date End Date John Thao MD [address] [place] [address] Dr [place] PCP - General Linux Architect 10/31/18
--- OUTSIDE RECORDS SUMMARY | 2025-05-23 15:30 | XMS_ITS | Clinical Summary ---
Author Organization [facility] Address [address] [place] [id number] Phone Care Team Providers Care Product Technician Name Role Phone John Thao MD [...] [facility] Medicaid [place] Care Teams Product Technician Relationship Specialty Start Date End Date John Thao MD [address] [place] [address] [id number] [place], [place] PCP - General 09/28/20
== END 2025-05-23 15:59 | disposition home or self-care (01) ==
LOC: HO.HMCHD 15:19
PROVIDERS: Visit Provider Physician Assistant
DX: F41.9 Anxiety disorder, unspecified (principal); J44.9 Chronic obstructive pulmonary disease, unspecified; Z09 Encounter for follow-up examination after completed treatment for conditions other than malignant neoplasm

== ENCOUNTER → 2025-05-23 15:18 | Outpatient (BNVA) | payer MEDICARE, SELFPAY | PROVIDERS: Visit Provider Physician Assistant | DX: J44.89 Other specified chronic obstructive pulmonary disease (principal); F41.9 Anxiety disorder, unspecified; Z87.09 Personal history of other diseases of the respiratory system | CPT/HCPCS: 99212 ==

== ENCOUNTER 2025-06-02 10:39 | Outpatient (REF) | payer MEDICARE, SELFPAY ==
--- NOTE | ~2025-06-02 | XR_ITS ---
EXAMINATION: XR CHEST 2 VIEWS HISTORY: J44.9 - Chronic obstructive pulmonary disease, unspecified COMPARISON: Comparison is made with the prior examination dated 05/16/2025. FINDINGS: PA and lateral views of the chest are submitted. The lungs remain hyperinflated, consistent with COPD. The lungs are clear. There is no pleural effusion, pneumothorax, or pulmonary vascular congestion. The heart is enlarged. There is degenerative disc disease of the spine. There is a mild chronic compression deformity of a midthoracic vertebral body. XR/XR chest 2V IMPRESSION: COPD. Cardiomegaly. No acute cardiopulmonary abnormality. Electronically signed by: Julian Duke MD 06/02/2025 12:18 PM EDT
== END 2025-06-02 10:40 | disposition home or self-care (01) ==
LOC: HO.XRAY 10:39
PROVIDERS: PCP Physician Assistant; Visit Provider Internal Medicine
DX: J44.1 Chronic obstructive pulmonary disease with (acute) exacerbation (principal); Z79.899 Other long term (current) drug therapy
CPT/HCPCS: 71046; 99212

== ENCOUNTER 2025-06-02 10:39 | Outpatient (AMB) | payer MEDICARE, SELFPAY ==
--- NOTE | 2025-06-02 10:59 | A.OFFVIS_ITS ---
Vital Signs 06/02/25 11:00 Height 4 ft 11 in Weight 194 lb 0.108 oz BMI 39.2 BP 130/70 Blood Pressure Location Lt brachial Position Sitting Pulse 81 Pulse Source Pulse Oximeter Pulse Oximetry (%) 95 Oxygen Delivery Method Room Air Intake Visit Reasons: copd Intake Note: pt is here for follow up and was in the HH for breathing, pneumonia, and anxiety. and today she feels like she has some pneumonia going on, coughing, fatigued, she just doesn't feel right. Operations Administrative Assistant Required: No Allergies gabapentin Allergy (Severe, Verified 06/02/25 12:16) severe urinary incont. codeine (CODEINE) Allergy (Intermediate, Verified 06/02/25 12:16) Rash fish derived (FISH) Allergy (Intermediate, Verified 06/02/25 12:16) HIVES Iodinated Contrast Media (IV Dye, Iodine Containing) Allergy (Intermediate, Verified 06/02/25 12:16) HIVES nitrofurantoin (Nitrofurantoin) Allergy (Intermediate, Verified 06/02/25 12:16) HIVES Sulfa (Sulfonamide Antibiotics) (SULFA (SULFONAMIDE ANTIBIOTICS)) Allergy (Intermediate, Verified 06/02/25 12:16) RASH valsartan (From DIOVAN) Allergy (Intermediate, Verified 06/02/25 12:16) HIVES vancomycin (VANCOMYCIN) Allergy (Intermediate, Verified 06/02/25 12:16) RASH Penicillins (PENICILLINS) Allergy (Mild, Verified 06/02/25 12:16) RASH adhesive (ADHESIVE) Allergy (Unknown, Verified 06/02/25 12:16) UNKNOWN hydrocodone (Vicodin) Allergy (Unknown, Verified 06/02/25 12:16) Unknown ibuprofen (IBUPROFEN) Adverse Reaction (Unknown, Verified 06/02/25 12:16) UNKNOWN Medication List - Last Reconciled 06/02/25 by Caro Dobson MD albuterol sulfate 90 mcg/actuation 2 puffs inhalation Q6H PRN albuterol sulfate 2.5 mg inhalation Q4H PRN budesonide DR-ER 6 mg (2 x 3 mg) PO DAILY docusate sodium (Colace) 100 mg PO DAILY hydrochlorothiazide 25 mg PO DAILY levothyroxine 50 mcg PO DAILY@0600 metoprolol succinate ER 50 mg PO DAILY ondansetron HCl 4 mg PO Q8H PRN oxycodone 5 mg PO QID PRN polyethylene glycol 3350 (Miralax) 17 grams PO DAILY rabeprazole (AcipHex) 20 mg PO DAILY sertraline 25 mg PO DAILY tramadol 50 mg PO BID Do you need a note to return to daycare/school/sports/work: No HPI HPI copd: Details: Joelle is 84 years old female grossly obese with chronic obstructive pulmonary disease. Comes here for follow-up . Just a few weeks ago from 05/16- , she was admitted to the hospital with what appeared to be acute exacerbation of COPD. She was discharged home after treatment. Today she comes to the office for follow-up claiming that she is not any better. She gets short of breath on minimal exertion. Has frequent cough and a feeling of chest congestion. While in the hospital she had a CTA of the chest which was negative for pulmonary embolism but did show some interstitial lung densities. Oxygenation was good, . So she did not require oxygen She was treated with a course of antibiotic. She has been using budesonide 6 mg daily, albuterol HFA 2 puffs Q 4-6 hours p.r.n.. He does not have inhaled steroid agent. Comes in today walking with her walker and is obviously short of breath. No fever or chills. Cough is mostly nonproductive. 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 difficile colitis Breast cancer Surgical History History of esophagogastroduodenoscopy (EGD) H/O colonoscopy H/O lymph node biopsy Hx of cataract surgery History of tonsillectomy and adenoidectomy H/O hysterectomy for benign disease History of total bilateral knee replacement H/O kyphoplasty Family History Father No problems noted. Mother Breast cancer Sister Breast cancer Social History Household Members: Children Household Members Other:: Jeremy Jordan Housing: House Are you a primary care taker to a significant other at home: No Do you presently have visiting nurse or other home services: No Alcohol intake: never Patient Tobacco Use Status: Former Tobacco user e-Cigarette/Vaping Use: Never Used Substance Use Type: Marijuana Advance Directives Date on File: 05/16/25 service: No Current occupational status: retired Cognitive needs: No Hearing needs: No Vision needs: Yes (rx glasses) Review of Systems Const All systems reviewed & are unremarkable except as noted in HPI and below Eyes Reports no additional complaints ENT Reports no additional complaints Card Denies chest pain, Denies irregular heart rhythm and Denies leg edema Resp Reports as per HPI GI Reports no additional complaints Reports no additional complaints Musc Reports abnormal gait (Needs the walker to ambulate) and Reports back pain Skin/Breast Reports system reviewed and no additional complaints, except as documented Neuro Reports abnormal gait (Needs the walker to ambulate) Psych Reports no additional complaints Endo Reports no additional complaints Physical Exam Vital Signs: Last Vital Signs Pulse 81 06/02/25 11:00 BP 130/70 06/02/25 11:00 Pulse Ox 95 06/02/25 11:00 Oxygen Delivery Method Room Air 06/02/25 11:00 BMI result Body Mass Index 39.2 Const Other: Grossly overweight General: comfortable, no acute distress, alert and awake Orientation/consciousness: patient oriented x3 HEENT Head: Yes normal to inspection General nose exam: No nasal polyps present and No nasal discharge present Face and sinus: Yes sinuses nontender Mouth: oropharynx normal Throat: Yes posterior oropharynx normal Eyes General: appearance normal, both eyes and all related structures Neck Neck: Yes normal visual inspection, Yes no lymphadenopathy (And no submandibular adenitis), Yes trachea midline and Yes no JVD Thyroid: Thyroid normal Chest Chest palpation & inspection: normal inspection of the chest, normal palpation of entire chest wall and no tenderness Resp Other: Percussion note is resonant, breath sounds are very distant with prolonged expiratory phase. No active wheezes or crepitations are heard today. Cardio Palpation: normal PMI Rate: regular rate Rhythm: regular rhythm Heart sounds: no gallops and no murmurs GI Palpation (GI): Soft to palpation, Tenderness to palpation present (GI), No hepatosplenomegaly present, Palpable mass present and Other GI palpation findings present (Abdomen is obese and somewhat protuberant) Auscultation: normal bowel sounds Back/Spine/Pelvis Thoracic/Lumbar Spine: thoracic and lumbar spine normal to inspection and thoraco-lumbar ROM limited Skin General skin exam: no rashes or lesions noted Neuro General: patient oriented x3, No gait normal (Gait unstable ,uses walker) and no focal motor deficits Cranial nerves: Yes CN's II-XII intact bilaterally Extrem General: Yes normal to inspection, Yes no clubbing, cyanosis or edema and Yes no calf tenderness Psych Appearance: grossly normal and well kempt Speech and movement: Normal speech and movement present Results Reviewed Results Reviewed: chest xray 06/02/2025 , COPD with poor aeration of the lungs and crowded bronchovascular marking. But there is no infiltrate . Assessment & Plan Assessment & Plan (1) COPD (chronic obstructive pulmonary disease): Comment: This patient does have restrictive and obstructive lung disease. Restrictive component is mainly because of her gross obesity. In the past to COPD has remained. relatively controlled Currently she has been treated for an acute exacerbation in the hospital and now still feels congested with cough and increased shortness of breath. Chest x-ray today does not show any infiltrates. Code(s): J44.9 - Chronic obstructive pulmonary disease, unspecified Category: Medical Plan: She is on budesonide 6 mg daily mainly for her bowel issue. But this should also provide the steroids effect to the respiratory system . Continue albuterol solution in the nebulizer Q 6 hours p.r.n. while awake. And when outdoors she can use albuterol HFA 2 puffs Q 6 hours p.r.n.. (2) COPD exacerbation: Comment: I think at present she continues to have low-grade COPD exacerbation. She is very short of breath on minimal exertion but her O2 sat is normal. Code(s): J44.1 - Chronic obstructive pulmonary disease with (acute) exacerbation Category: Medical Plan: I would prescribe doxycycline 100 b.i.d. for 10 days empirically, Because she is already on budesonide so I would not prescribe prednisone. Orders: Orders XR chest 2V Today J44.1 - Chronic obstructive pulmonary disease with (acute) exacerbation, J44.9 - Chronic obstructive pulmonary disease, unspecified Medications: New doxycycline hyclate 100 mg PO BID 20 tabs 0RF copd excerbation 10 days Coding Level of Care Code Est Pt Level 4 (00298) Diagnoses COPD (chronic obstructive pulmonary disease) J44.9 COPD exacerbation J44.1
[2025-06-02 11:00] VITALS: BP 130/70; PULSE 81; O2SAT 95; BMI 39.2
--- OUTSIDE RECORDS SUMMARY | 2025-06-02 13:50 | XMS_ITS | Clinical Summary ---
Author Organization [facility] Address [address] [place] [id number] Phone Care Team Providers Care Java Solutions Architect Name Role Phone John Thao MD Primary Care Provider [phone] Allergies Active Allergy Reactions Criticality Noted Date [...] patient's age to complete this topic Insurance [facility] Medicare Medicaid [place] Medicare [facility] [place] Care Teams Java Solutions Architect Relationship Specialty Start Date End Date John Thao MD [address] [place] [address] [id number] [place], [place] PCP - General 09/28/20
--- OUTSIDE RECORDS SUMMARY | 2025-06-02 13:50 | XMS_ITS | Clinical Summary ---
Author Organization [facility] ity Address [address] [place] [id number] Care Team Providers Care Hostess Party Sales Representative Name Role Phone John Thao MD Primary Care Provider [phone] Social History Tobacco Use Types Packs/Day Years [...] nts (1 - 1-dose 75+ series) 2015 Depression Screening 09/18/2024 COVID-19 Vaccine (1 - 2023-2 5 season) 2025 Influenza Vaccine (#1) 2025 HIB Vaccines Aged [...] age to complete this topic Care Teams Hostess Party Sales Representative Relationship Specialty Start Date End Date John Thao MD [address] [place] [address] Dr [place] PCP - General Email Developer 10/31/18
== END 2025-06-02 11:26 | disposition home or self-care (01) ==
PROVIDERS: Visit Provider Internal Medicine
DX: J44.9 Chronic obstructive pulmonary disease, unspecified (principal); J44.1 Chronic obstructive pulmonary disease with (acute) exacerbation
CPT/HCPCS: 99214

== ENCOUNTER → 2025-06-02 11:43 | Outpatient (BNV) | payer MEDICARE, SELFPAY | PROVIDERS: PCP Physician Assistant; Visit Provider Radiology Diagnostic Radiology | DX: J44.9 Chronic obstructive pulmonary disease, unspecified (principal) | CPT/HCPCS: 71046 ==

== ENCOUNTER 2025-06-05 10:43 | Outpatient (AMB) | payer MEDICARE, SELFPAY ==
--- NOTE | 2025-06-05 10:45 | A.OFFVIS_ITS ---
Vital Signs 06/05/25 10:46 Height 4 ft 11 in Weight 192 lb BMI 38.8 BP 125/79 Blood Pressure Location Rt radial Position Sitting Pulse Oximetry (%) 94 Intake Visit Reasons: Follow up gastric emptying, HIDA scan Intake Note: Joelle presents in office today in follow up of HIA scan and gastric emptying. CC: Patient continues to have constipation, nauseated in the mornings. She states that she woke up with her Rt foot swollen yesterday. PT seen in the ER on 05/16 with asthma. Allergies gabapentin Allergy (Severe, Verified 06/05/25 10:51) severe urinary incont. codeine (CODEINE) Allergy (Intermediate, Verified 06/05/25 10:51) Rash fish derived (FISH) Allergy (Intermediate, Verified 06/05/25 10:51) HIVES Iodinated Contrast Media (IV Dye, Iodine Containing) Allergy (Intermediate, Verified 06/05/25 10:51) HIVES nitrofurantoin (Nitrofurantoin) Allergy (Intermediate, Verified 06/05/25 10:51) HIVES Sulfa (Sulfonamide Antibiotics) (SULFA (SULFONAMIDE ANTIBIOTICS)) Allergy (Intermediate, Verified 06/05/25 10:51) RASH valsartan (From DIOVAN) Allergy (Intermediate, Verified 06/05/25 10:51) HIVES vancomycin (VANCOMYCIN) Allergy (Intermediate, Verified 06/05/25 10:51) RASH Penicillins (PENICILLINS) Allergy (Mild, Verified 06/05/25 10:51) RASH adhesive (ADHESIVE) Allergy (Unknown, Verified 06/05/25 10:51) UNKNOWN hydrocodone (Vicodin) Allergy (Unknown, Verified 06/05/25 10:51) Unknown ibuprofen (IBUPROFEN) Adverse Reaction (Unknown, Verified 06/05/25 10:51) UNKNOWN HPI HPI Follow up gastric emptying, HIDA scan: Details: Assessment & Plan (1) Gallstones: Comment: negative HIDA scan Code(s): K80.20 - Calculus of gallbladder without cholecystitis without obstruction Category: Medical (2) Constipation: Code(s): K59.00 - Constipation, unspecified Category: Medical (3) Erosive esophagitis: Code(s): K22.10 - Ulcer of esophagus without bleeding Category: Medical (4) GERD (gastroesophageal reflux disease): Code(s): K21.9 - Gastro-esophageal reflux disease without esophagitis Category: Medical (5) Nausea and vomiting: Code(s): R11.2 - Nausea with vomiting, unspecified Category: Medical Plan The patient is an 84-year-old female presenting with significant constipation, nausea, and vomiting. She has a known history of chronic Gastroesophageal Reflux Disease (GERD) and diarrhea-predominant Irritable Bowel Syndrome (IBS), historically managed with Imipramine and Budesonide, now discontinued. The constipation has become severe enough to require Emergency Room visits, And she is practicing self digital disimpaction. She reports increasing anxiety and memory problems. She does not remember if she started the metoclopramide or not and her primary care providers prescribing Zofran. it also appears that her primary care provider maybe prescribing PPIs and the patient is really uncertain of what GI medicine she is taking. She attempts to manage her constipation by consuming prunes and using Benefiber, though these have provided limited relief. Her current fluid intake is sufficient as she drinks around 9 6-8 oz glasses of water a day. today she is telling me that she occasionally has softer stools with a return of her fecal incontinence. This was not clear to me at the last visit. In the past there has been a question of whether she has some rectal insufficiency or even a rectocele contributing to her symptoms. She says she has been told in the past she has a fishhook which I think she means a fissure and does not make much sense to me. The patient's symptoms also include constant nausea, disrupted sleep, and restless legs, impacting her overall quality of life. The pain management includes Tramadol and Oxycodone, which might contribute to the constipation issue. She is under nephrology care for chronic kidney disease. A recent CAT scan discovered gallstones and we have a HIDA scan coming up to see if this is part of her symptom presentation. She also has an upcoming gastric emptying study. She has had multiple upper endoscopies in the past for this same problem over the years. She mentions that her cat scratched her and she is being treated with Zithromax for scratch scratch fever. I think she is probably being treated more for lower extremity cellulitis, she is complaining of weeping from a very small half a cm wound. This is located about 2 in above the ankle on the lateral side of the right lower leg. The patient reports a limited diet due to frequent nausea and vomiting. She eats cautiously due to the risk of exacerbating symptoms. She consumes prunes daily t o help manage constipation, along with Benefiber. Fluid intake is reportedly adequate, as water increases her nausea; she estimates drinking approximately 8- 12 ounces of water nine times a day. She supplements with occasional sips of Pedialyte. - Stop taking Metoclopramide immediately. - Continue Docusate daily for stool softening. - Eat three prunes every day. - Take Benefiber as directed. - Choose a magnesium supplement or milk of magnesia to help with constipation. - Stay as hydrated as possible; aim for consistent fluid intake. - Continue taking your prescribed nausea medication: Ondansetron. - Attend the scheduled HIDA scan and gastric emptying study. - Bring all prescription and [id number] medications to the next appointment. - Watch for worsening symptoms, and contact the office if diarrhea or severe pain occurs. Orders: Orders EGD/[place] Combo - GI Use Only Today R11.2 - Nausea with vomiting, unspecified Medications: On Hold budesonide DR-ER Hold Comment: Doctor's Order 6 mg (2 x 3 mg) PO DAILY 30 ea 6RF HIDA SCAN 05/03/2025 MPRESSION: No evidence of cystic duct obstruction. The patient could not tolerate additional imaging, including the administration of intravenous CCK for computation of the gallbladder ejection fraction. GeS 05/07/2025 IMPRESSION: Normal 4-hour solid food gastric emptying study. 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 difficile colitis Breast cancer Surgical History History of esophagogastroduodenoscopy (EGD) H/O colonoscopy H/O lymph node biopsy Hx of cataract surgery History of tonsillectomy and adenoidectomy H/O hysterectomy for benign disease History of total bilateral knee replacement H/O kyphoplasty Family History Father No problems noted. Mother Breast cancer Sister Breast cancer Social History Household Members: Children Household Members Other:: Jeremy Jordan Housing: House Are you a primary neonatal intensive care unit nurse to a significant other at home: No Do you presently have visiting nurse or other home services: No Alcohol intake: never Patient Tobacco Use Status: Former Tobacco user e-Cigarette/Vaping Use: Never Used Substance Use Type: Marijuana Advance Directives Date on File: 05/16/25 service: No Current occupational status: retired Cognitive needs: No Hearing needs: No Vision needs: Yes (rx glasses) Review of Systems Const Denies fatigue, Denies fever(s), Denies night sweats, Denies poor appetite and Denies weight loss Eyes Details: glasses Reports requires corrective lenses ENT Reports Normal hearing present, Denies dental pain, Denies dysphagia, Denies hearing loss, Denies mouth pain, Denies odynophagia, Denies throat swelling, Denies tongue swelling and Reports other (Dentition adequate) Card Reports no additional complaints and Reports dyspnea on exertion Resp Reports dyspnea on exertion GI Details: Denies abdominal pain, Denies melena, Denies bloating, Denies hematochezia, Reports constipation, Denies GI cramping, Denies dysphagia, Denies excessive flatus, Denies early satiety, Reports heartburn, Reports diarrhea, Reports nausea, Denies odynophagia, Denies vomiting and Denies hematemesis Musc Reports abnormal gait, Reports back pain and Reports myalgias Skin/Breast Denies pruritus, Denies lesions, Denies rash and Denies jaundice Neuro Reports Normal hearing present, Denies Abnormal speech present and Reports abnormal gait Psych Reports anxiety Endo Denies fatigue Aller/Immun Denies throat swelling and Denies tongue swelling Physical Exam Vital Signs: Last Vital Signs BP 125/79 06/05/25 10:46 Pulse Ox 94 06/05/25 10:46 BMI result Body Mass Index 38.8 Const General: cooperative, no acute distress, well developed and well groomed Nutritional Appearance: well nourished and obese Orientation/consciousness: oriented to person, oriented to place and oriented to time Limitations: No language barrier and ambulation with walker HEENT Head: Yes normocephalic and Yes atraumatic Eyes General: appearance normal, both eyes and all related structures Pupils: Equal, round and reactive pupils present Neck Neck: Yes normal visual inspection and Yes no lymphadenopathy Thyroid: Thyroid normal Resp Effort & Inspection: normal respiratory effort and able to speak in complete sentences Auscultation: clear to auscultation bilaterally Cardio Rate: regular rate Rhythm: regular rhythm Heart sounds: Normal, physiologic split S2 sound present Peripheral pulses: radial pulses present and posterior tibial pulses present GI Inspection: No distended, Yes Abdominal panniculus present and Yes obesity Palpation (GI): Soft to palpation, nontender, no guarding, not rigid and No hepatosplenomegaly present Percussion: Yes normal to percussion Auscultation: normal bowel sounds Rectal Exam - Female: deferred Skin General skin exam: no rashes or lesions noted, turgor normal, skin not dry, no jaundice, No spider nevi and no striae Rashes: no rashes Nails: normal Neuro General: oriented to person, oriented to place and oriented to time Cranial nerves: Yes Equal, round and reactive pupils present and Yes Normal hearing present Speech: No Abnormal speech present Extrem General: Yes normal to inspection, No clubbing, No cyanosis and No edema Psych Appearance: grossly normal and well kempt Mental Status: mental status grossly normal Speech and movement: Pressured speech present Affect: Labile affect present, Anxious affect present and Irritable affect present Attitude: Guarded attititude/behavior present Thought process: not confabulating and Impoverished thought process present Thought content: Normal thought content present Insight: Limited insight present (Psych) Judgement: Limited judgement present (Psych) Assessment & Plan Assessment & Plan (1) Nausea and vomiting: Code(s): R11.2 - Nausea with vomiting, unspecified Category: Medical (2) Irritable bowel syndrome with both constipation and diarrhea: Code(s): K58.2 - Mixed irritable bowel syndrome Category: Medical (3) GERD (gastroesophageal reflux disease): Code(s): K21.9 - Gastro-esophageal reflux disease without esophagitis Category: Medical (4) Dysphagia: Code(s): R13.10 - Dysphagia, unspecified Category: Medical (5) Erosive esophagitis: Code(s): K22.10 - Ulcer of esophagus without bleeding Category: Medical (6) Gallstones: Comment: negative HIDA scan, BUT PATIENT COULD NOT LAY AND TOLERATE CCK ADMISSION Code(s): K80.20 - Calculus of gallbladder without cholecystitis without obstruction Category: Medical (7) Elevated fecal calprotectin: Code(s): R19.5 - Other fecal abnormalities Category: Medical Plan Her current medication regimen is budesonide 2 tablets daily, Colace, MiraLax, and rabeprazole. However, Joelle is not well acquainted with her medications leading to some questions as to what she is actually takes. - The patient is an 84-year-old female presenting with constipation and bowel movement irregularity. - She has experienced ongoing stool passage irregularities for about seven years, marked by alternating stool consistency and incomplete evacuation. Frequently she has to practice digital disimpaction. - Despite management with MiraLax and Colace, her bowel habit remains erratic, progressing from hard to sometimes watery, before returning to firmness. - She has been hospitalized recently for bowel and respiratory issues, with inconsistent bowel outcomes from diarrhea in the past to current constipation. - Unresolved nausea, primarily nocturnal, is a concern, affecting overall well- being. - Pending a colonoscopy, delayed due to scheduling challenges, to assess underlying intestinal pathology. - A normal gastric emptying study has been noted, with an incomplete HIDA scan unable to evaluate gallbladder function completely. - Recently reported unilateral leg swelling is noted with no previous episodes, raising consideration for a vascular issue. Because she is frustrated I think the next appointment should be with a physician and then she can return to my care at any time. I think she would benefit from fresh advise on her problem. Medications: On Hold polyethylene glycol 3350 (Miralax) Hold Comment: Doctor's Order 17 grams PO DAILY 238 grams 1RF Coding Level of Care Code Est Pt Level 4 (65465) Diagnoses Nausea and vomiting R11.2 Irritable bowel syndrome with both constipation and diarrhea K58.2 GERD (gastroesophageal reflux disease) K21.9 Dysphagia R13.10 Erosive esophagitis K22.10 Gallstones K80.20 Elevated fecal calprotectin R19.5 Time Spent (min) 36
[2025-06-05 10:46] VITALS: BP 125/79; O2SAT 94; BMI 38.8
--- OUTSIDE RECORDS SUMMARY | 2025-06-05 12:51 | XMS_ITS | Clinical Summary ---
Author Organization [facility] Address [address] [place] [id number] Phone Care Team Providers Care Braided Rug Maker Name Role Phone John Thao MD Primary Care Provider [phone] Allergies Active Allergy Reactions Criticality Noted Date [...] Medicare [facility] Medicaid [place] Care Teams Braided Rug Maker Relationship Specialty Start Date End Date John Thao MD [address] [place] [address] [id number] [place], [place] PCP - General 09/28/20
--- OUTSIDE RECORDS SUMMARY | 2025-06-05 12:52 | XMS_ITS | Clinical Summary ---
Author Organization [facility] Address [id number] [place] [id number] Care Team Providers Care Group Home Paraprofessional Name Role Phone John Thao MD Primary [...] age to complete this topic Care Teams Group Home Paraprofessional Relationship Specialty Start Date End Date John Thao MD [address] [place] [address] Dr [place] PCP - General Rim Roller Setter 10/31/18
== END 2025-06-05 11:32 | disposition home or self-care (01) ==
LOC: HO.HGI 10:43
PROVIDERS: PCP Internal Medicine; Visit Provider Nurse Practitioner
DX: R11.2 Nausea with vomiting, unspecified (principal); K58.2 Mixed irritable bowel syndrome; K21.9 Gastro-esophageal reflux disease without esophagitis; R13.10 Dysphagia, unspecified; K22.10 Ulcer of esophagus without bleeding; K80.20 Calculus of gallbladder without cholecystitis without obstruction; R19.5 Other fecal abnormalities
CPT/HCPCS: 99214

== ENCOUNTER → 2025-06-05 10:43 | Outpatient (BNVA) | payer MEDICARE, SELFPAY | PROVIDERS: PCP Internal Medicine; Visit Provider Nurse Practitioner | DX: K58.2 Mixed irritable bowel syndrome (principal); K21.9 Gastro-esophageal reflux disease without esophagitis; K22.10 Ulcer of esophagus without bleeding; R11.2 Nausea with vomiting, unspecified; R13.10 Dysphagia, unspecified; R19.5 Other fecal abnormalities | CPT/HCPCS: 99212 ==

== ENCOUNTER 2025-06-14 10:24 | Inpatient (IN) | payer MEDICARE, SELFPAY ==
[2025-06-14] VITALS (7 sets, daily range): BP systolic 154–165; BP diastolic 69–83; PULSE 66–92; RESP 18–23; TEMP 36.2–36.7; O2SAT 94–99; BMI 35.7; BMI 35.1
--- NOTE | ~2025-06-14 | CT_ITS ---
CLINICAL HISTORY: abdominal pain, r o SBO, oral contrast only CT abdomen and pelvis with contrast Comparison: CT/REG/SR - CT ABDOMEN PELVIS W IV CON - 02/03/25 08:59 EDT, images only Findings: Atelectasis. Cirrhosis Cholelithiasis noted, without significant wall thickening or pericholecystic stranding. Bile ducts are unremarkable. Fatty atrophy of the pancreas. Large duodenal diverticulum redemonstrated of the junction of the 2nd and 3rd segments. There is prominent peridiverticular inflammatory changes with fatty/fluid stranding. There appears to be peripancreatic inflammatory changes as wall. Differentials include pancreatitis or duodenal diverticulitis and/or both. Nodular thickening of the adrenal glands, left more than right similar to prior. Left adrenal gland nodule measures up to 1.5 cm with an average Hounsfield unit of 29, indeterminate. This may be further evaluated with biochemical assay and adrenal protocol imaging if indicated. Bilateral perinephric stranding, nonspecific. Bilateral hypodense renal cysts. No urolithiasis. No bowel obstruction, pneumoperitoneum, or pneumatosis. 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 Scattered atheromatous plaques throughout the thoracoabdominal aorta and branch vessels. Post hysterectomy. Scattered colonic diverticulosis without diverticulitis or colitis. Normal appendix. Mildly distended bladder. Osteopenia with diffuse multilevel spondylosis. Similar compression deformities noted at L3 with kyphoplasty cement and L4. Grade 1 anterolisthesis at L3-L4 and L4-L5, similar to prior. IMPRESSION: Suspect pancreatitis versus duodenal diverticulitis and/or both, please see discussion above. Clinical correlation advised. Additional findings described, please see above. This document has been electronically signed by: Vega Gardner MD on 06/14/2025 17:25:13
--- NOTE | ~2025-06-14 | XR_ITS ---
CLINICAL HISTORY: SOB 2 view chest x-ray Comparison: CR/SR - XR CHEST 2 VIEWS - 06/02/25 12:08 EDT Findings: Unchanged opacity of the left lung base. Hyperinflation of the lungs. There is enlargement of the cardiopericardial silhouette. No acute fracture. Chronic fracture of the right proximal humerus. IMPRESSION: 1. No acute findings. This document has been electronically signed by: Onesimo Moore MD on 06/14/2025 13:32:07
--- NOTE | ~2025-06-14 | XR_ITS ---
CLINICAL HISTORY: constipation Exam: Supine abdominal radiographs. Comparison: Chest x-ray May 16, 2025. Findings: Air-filled loops of nondilated bowel are seen throughout the abdomen and pelvis. [id number] stool throughout the colon. Surgical clips project over the sacrum. No indirect evidence for free air on this supine exam. Poly methylmethacrylate is seen within the L3 vertebral body. Mild convex left thoracolumbar curvature. Bones are osteopenic. No infiltrates within the lung bases. Impression: No findings of bowel obstruction This document has been electronically signed by: Zana Roldan MD on 06/14/2025 12:17:28
[2025-06-14 11:06] LABS: MANUAL DIFF FLAG NO
[2025-06-14 11:08] LABS: Hematocrit 42.1 % (37.0-47.0); Hemoglobin 14.3 g/dl (12.0-16.0); Imm Gran Abs Auto 0.08 X10*3/uL (0.00-0.03); Imm Gran Pct Auto 0.7 % (0.0-0.4); Lymphocytes Absolute Auto 1.1 X10*3/uL (1.2-4.9); Mean Corpuscular HGB Conc 34.0 g/dl (31.0-35.0); Mean Corpuscular Hemoglobin 30.2 pg (27.0-33.0); Mean Corpuscular Volume 89.0 fL (80.0-98.0); NRBC Abs Auto 0.000 X10*3/uL (0.0-0.012); NRBC Pct Auto 0.0 /100WBC (0.0-0.2); Platelet Count 353 X10*3/uL (160-400); Red Blood Count 4.73 X10*6/uL (4.20-5.50); White Blood Count 12.2 X10*3/uL (4.8-10.8)
[2025-06-14 11:30] LABS: Alanine Aminotransferase 10 U/L (0-31); Albumin Level 3.9 g/dL (3.5-5.0); Alkaline Phosphatase 96 U/L (39-117); Anion Gap 16 (12-20); Aspartate Amino Transferase 26 U/L (5-31); Blood Urea Nitrogen 23 mg/dL (9-16); Calcium 10.3 mg/dL (8.4-10.2); Carbon Dioxide 25 mmol/L (22-29); Chloride 95 mmol/L (96-108); Creatinine Clr Calc Pharmacy 31.1; Estimated Glomerular Filt Rate 36; Potassium 3.0 mmol/L (3.3-5.1); Sodium 133 mmol/L (135-145); Total Protein 7.6 g/dL (6.5-8.0)
--- NOTE | 2025-06-14 11:39 | ECG_ITS ---
Test Reason : ABD PAIN Blood Pressure : */* mmHG Vent. Rate : 75 BPM Atrial Rate : 75 BPM P-R Int : 158 ms QRS Dur : 78 ms QT Int : 496 ms P-R-T Axes : 44 23 78 degrees QTcB Int : 553 ms Sinus rhythm with Premature atrial complexes Possible Inferior infarct (cited on or before 25-Aug-2019) Abnormal ECG When compared with ECG of 16-May-2025 07:50, Premature atrial complexes are now Present T wave inversion no longer evident in Lateral leads QT has lengthened Referred By: Danica De Leon Electronically Signed By: Star Jama
[2025-06-14 11:40] LABS: Lipase 700 U/L (8-78)
--- NOTE | 2025-06-14 11:45 | ED_ITS ---
HPI - Abdominal Pain General Chief Complaint: Abdominal Pain Stated Complaint: vomiting abd pain Time Seen by Provider: 06/14/25 11:20 Source: patient and family Mode of arrival: wheelchair Limitations: no limitations History of Present Illness ED Provider: Danica De Leon APRN HPI narrative: 84 years old lady with PMH of COPD/Asthma, CKD, HLD, osteoporosis, irritable bowel syndrome, HTN, hx bilateral parotid tumors s/p resection, hx breast cancer, hx thyroid cancer here with complaints of 3 days of generalized abdominal pain, vomiting. Last BM 3 days ago. Unable to tolerate PO. Also c/o cough/SOB with underlying history of COPD. No fever, chills, chest pain. Related Data Home Medications ?Medication ?Instructions ?Recorded ?Confirmed metoprolol succinate 50 mg 50 mg PO DAILY 06/15/20 tablet,extended release 24 hr albuterol sulfate 2.5 mg/3 mL 2.5 mg inhalation Q4H AK N for 03/25/24 06/02/25 (0.083 %) solution for nebulization wheezing docusate sodium 100 mg capsule 100 mg PO DAILY 5 06/02/25 (Colace) Previous Rx's ?Medication ?Instructions ?Recorded budesonide 3 mg 6 mg (2 x 3 mg) PO DAILY #30 ea 02/13/25 capsule,delayed,extended release albuterol sulfate 90 mcg/actuation 2 puff inhalation Q 6H PRN 04/01/25 aerosol inhaler Shortness Of Breath Or Wheez ing #1 ea hydrochlorothiazide 25 mg tablet 25 mg PO DAILY #90 ta bs 04/03/25 levothyroxine 50 mcg tablet 50 mcg PO DAILY@0600 #90 t abs 04/03/25 rabeprazole 20 mg tablet,delayed 20 mg PO DAILY #90 ta bs 04/03/25 release (AcipHex) sertraline 25 mg tablet 25 mg PO DAILY #45 tabs 04/11 ondansetron HCl 4 mg tablet 4 mg PO Q8H PRN for nausea/vomiting #90 tabs oxycodone 5 mg tablet 5 mg PO QID PRN severe pain #120 05/20/25 tabs polyethylene glycol 3350 17 17 g PO DAILY #238 grams 0 05/23/25 gram/dose oral powder (Miralax) Held on 06/05/25. Instructions: Doctor's Order doxycycline hyclate 100 mg tablet 100 mg PO BID copd e xcerbation 10 06/02/25 days #20 tabs tramadol 50 mg tablet 50 mg PO BID moderate pain # 60 tabs 06/11/25 Allergies Allergy/AdvReac Type Severity Reaction Status Date / Time gabapentin Allergy Severe severe Verified 06/14/25 10:42 urinary incont. codeine (CODEINE) Allergy Intermediate Rash Verified 06/14/25 10:42 fish derived (FISH) Allergy Intermediate HIVES Verified 06/14/25 10:42 Iodinated Contrast Media (IV Allergy Intermediate HIVES Verified 06/14/25 10:42 Dye, Iodine Containing) nitrofurantoin Allergy Intermediate HIVES Verified 06/14/25 10:42 (Nitrofurantoin) Sulfa (Sulfonamide Allergy Intermediate RASH Verified 06/14/25 10:42 Antibiotics) (SULFA (SULFONAMIDE ANTIBIOTICS)) valsartan (From DIOVAN) Allergy Intermediate HIVES Verified 06/14/25 10:42 vancomycin (VANCOMYCIN) Allergy Intermediate RASH Verified 06/14/25 10:42 Penicillins (PENICILLINS) Allergy Mild RASH Verified 06/14/25 10:42 adhesive (ADHESIVE) Allergy Unknown UNKNOWN Verified 06/14/25 10:42 hydrocodone (Vicodin) Allergy Unknown Unknown Verified 06/14/25 10:42 ibuprofen (IBUPROFEN) AdvReac Unknown UNKNOWN Verified 06/14/25 10:42 Review of Systems Review of Systems Yes all other systems are reviewed and are negative Constitutional: Reports no additional constitutional complaints, Denies body ache(s), Denies chills, Denies fever(s), Denies headache(s) and Denies weakness Eyes: Reports no additional eye complaints and Denies change in vision Reports system reviewed and no additional complaints, except as documented, Denies dizziness, Denies headache(s), Denies nasal congestion, Denies nasal discharge and Denies neck pain Cardiovascular: Reports no additional cardiovascular complaints, Denies chest pain, Denies leg edema and Reports dyspnea Respiratory: Reports no additional respiratory complaints, Reports cough and Reports dyspnea Gastrointestinal: Reports no additional gastrointestinal complaints, Reports abdominal pain, Denies diarrhea, Reports nausea and Reports vomiting Genitourinary: Reports no additional female genitourinary complaints and Denies urinary incontinence Musculoskeletal: Reports no additional musculoskeletal complaints, Denies back pain, Denies arthralgias, Denies joint swelling, Denies neck pain, Denies numbness and Denies tingling Skin/Breast: Reports system reviewed and no additional complaints, except as docu and Denies rash Reports system reviewed and no additional complaints, except as documented, Denies Abnormal speech present, Denies dizziness, Denies headache(s), Denies numbness, Denies tingling and Denies weakness PMFSH Past Medical History Attestation statement: The following information was validated with the patient. 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 difficile colitis Breast cancer Surgical History History of esophagogastroduodenoscopy (EGD) H/O colonoscopy H/O lymph node biopsy Hx of cataract surgery History of tonsillectomy and adenoidectomy H/O hysterectomy for benign disease History of total bilateral knee replacement H/O kyphoplasty Family History Family History Father No problems noted. Mother Breast cancer Sister Breast cancer Social History Social History Household Members: Children Household Members Other:: Jeremy Jordan Housing: House Are you a primary childcare aide to a significant other at home: No Do you presently have visiting nurse or other home services: No Alcohol intake: never Patient Tobacco Use Status: Former Tobacco user Smoked in Last 30 Days: No e-Cigarette/Vaping Use: Never Used Substance Use Type: Marijuana Advance Directives: Yes Advance Directives on File: Yes Advance Directives Date on File: 05/16/25 service: No Current occupational status: retired Cognitive needs: No Hearing needs: No Vision needs: Yes (rx glasses) Physical Exam ED Vital Signs: Vital Signs - 24 hr 06/14/25 10:40 06/14/25 11:55 06/14/25 12:54 Temperature 97.2 F 97.9 F Pulse Rate 70 66 86 Respiratory Rate 20 22 H 21 H Blood Pressure 165/69 H Pulse Oximetry 99 97 Oxygen Delivery Method Room Air Room Air 06/14/25 16:26 Temperature 98.1 F Pulse Rate 88 Respiratory Rate 23 H Blood Pressure 154/71 H Pulse Oximetry 97 Oxygen Delivery Method Room Air BMI result Body Mass Index 35.7 Const General: cooperative, healthy appearing, comfortable and no acute distress Orientation/consciousness: patient oriented x3 Limitations: no limitations HENMT Head: Yes normal to inspection Ears: hearing grossly normal bilaterally General nose exam: Normal external nose present Face and sinus: Yes normal facial exam Mouth: Normal oral and palatal mucosa present Throat: Yes posterior oropharynx normal Eyes General: appearance normal, both eyes and all related structures Pupils: Equal, round and reactive pupils present Neck Neck: Yes normal visual inspection Chest Chest palpation & inspection: normal inspection of the chest Resp Effort & Inspection: tachypneic Auscultation: wheezes Cardio Rate: regular rate Rhythm: regular rhythm Peripheral pulses: Peripheral pulses 2+ throughout GI Inspection: Yes normal to inspection Palpation (GI): Soft to palpation and nontender Auscultation: Hypoactive bowel sounds present Back/Spine/Pelvis Thoracic/Lumbar Spine: thoracic and lumbar spine normal to inspection Skin General skin exam: no rashes or lesions noted Neuro General: patient oriented x3, no focal motor deficits and normal sensation to monofilament Cranial nerves: Yes Equal, round and reactive pupils present Cognition (Neuro): normal cognition Speech: No Abnormal speech present Gait exam (Neuro): Normal gait present Motor exam (neuro): 5/5 motor strength present throughout Extrem General: Yes normal to inspection, Yes no calf tenderness and Yes normal gait Course Course Course Narrative: 1729-Ct shows IMPRESSION: Suspect pancreatitis versus duodenal diverticulitis and/or both, please see discussion above. Clinical correlation advised. Additional findings described, please see above. Lipase is elevated 700. More likely pancreatitis. Unknown cause. Patient denies alcohol use. Reviewed medications and can not find culprit. Patient has had history of diverticulitis in the past. At this time infection suspected. I spoke to the medicine team. They have agreed to order antibiotics on this patient. Labs show leukocytosis which is chronic. She has hypokalemia and elevated lactic acid which is likely secondary to vomiting and dehydration. She received IV fluids and p.o. potassium. Medical Decision Making Medical Decision Making [facility] Narrative: 84 years old lady with PMH of COPD/Asthma, CKD, HLD, osteoporosis, irritable bowel syndrome, HTN, hx bilateral parotid tumors s/p resection, hx breast cancer, hx thyroid cancer here with complaints of 3 days of generalized abdominal pain, vomiting. Last BM 3 days ago. Unable to tolerate PO. Also c/o cough/SOB with underlying history of COPD. No fever, chills, chest pain. On exam patient has wheezing/tachypnea. She has no focal abdominal pain, she has hypoactive BS. Will obtain labs, EKG, UA, chest x-ray, CT abdomen and pelvis Patient will receive IV fluids, famotidine, antiemetic, bronchodilator and methylprednisone Differential Diagnosis Differential Diagnoses: The differential diagnosis associated with the presentation includes viral syndrome, chronic lung disease low suspcician for PNA, PE, ACS pancreatitis, SBO Admission/Observation Consideration of admission/observation: Escalation of care including admission/observation considered Pancreatitis requiring IV medications and admision Consult Healthcare Provider Management of the patient was discussed with: Hospitalist Dr Dunbar (accepted 1730) Lab Data [facility] Lab Attestation statement: I reviewed the patient's lab results. 06/14/25 10:53 06/14/25 10:53 Labs: Lab Results 06/14/25 06/14/25 06/14/25 Range/Units 10:53 11:34 12:38 WBC 12.2 H (4.8-10.8) X10*3/uL RBC 4.73 (4.20-5.50) X10*6/uL Hgb 14.3 (12.0-16.0) g/dl Hct 42.1 (37.0-47.0) % MCV 89.0 (80.0-98.0) fL MCH 30.2 (27.0-33.0) pg MCHC 34.0 (31.0-35.0) g/dl RDW 13.4 (11.0-16.0) % Plt Count 353 (160-400) X10*3/uL MPV 10.0 (9.4-12.3) fL Immature Gran % (Auto) 0.7 H (0.0-0.4) % Neut % (Auto) 80.9 H (45-73) % Lymph % (Auto) 9.3 L (20-40) % [place] % (Auto) 8.2 (2-11) % Eos % (Auto) 0.7 (0-4) % Baso % (Auto) 0.2 (0-2) % Lymph # (Auto) 1.1 L (1.2-4.9) X10*3/uL [place] # (Auto) 1.0 (0.1-1.2) X10*3/uL Eos # (Auto) 0.1 (0.0-0.4) X10*3/uL Baso # (Auto) 0.0 (0.0-0.2) X10*3/uL Abs Immat Gran (auto) 0.08 H (0.00-0.03) X10*3/uL Absolute Neuts (auto) 9.9 H (2.0-8.3) x10*3/uL Absolute Nucleated RBC 0.000 (0.0-0.012) X10*3/uL Nucleated RBC % (auto) 0.0 (0.0-0.2) /100WBC Sodium 133 L (135-145) mmol/L Potassium 3.0 L D (3.3-5.1) mmol/L Chloride 95 L (96-108) mmol/L Carbon Dioxide 25 (22-29) mmol/L Anion Gap 16 (12-20) BUN 23 H (9-16) mg/dL Creatinine 1.39 (0.5-1.4) mg/dL Estim Creat Clear Calc 31.1 Estimated GFR 36 Random Glucose 92 (60-115) mg/dL Lactic Acid 2.3 H* (0.5-2.0) mmol/L Lactic Acid F/U @ 2Hr (0.5-2.0) mmol/L Calcium 10.3 H D (8.4-10.2) mg/dL Total Bilirubin 1.2 H (0.0-1.0) mg/dL AST 26 (5-31) U/L ALT 10 (0-31) U/L Alkaline Phosphatase 96 (39-117) U/L Troponin I High Sens 6.6 (<3.5-17.0) ng/L Total Protein 7.6 (6.5-8.0) g/dL Albumin 3.9 (3.5-5.0) g/dL Lipase 700 H (8-78) U/L Urine Color Yellow Urine Appearance Clear Urine pH 7.5 (5.0-9.0) Ur Specific [place] 1.010 (1.005-1.025) Urine Protein 30 (1+) H (Neg-Trace) mg/dL Urine Glucose (UA) Negative (Negative) mg/dL Urine Ketones Negative (Negative) mg/dL Urine Blood Negative (Negative) Urine Nitrite Negative (Negative) Ur Leukocyte Esterase Negative (Negative) Urine RBC 0-2 (0-2) /HPF Urine WBC 0-5 (0-5) /HPF Ur Squamous Epith Cells 6-10 (0-2) /HPF Urine Bacteria None Seen (None Seen) Hyaline Casts 0-2 (0-2) /LPF COVID-19 (PHOEBE) Negative (Negative) COVID-19 Clin Com See Note Influenza Type A (ABISAI) Negative (Negative) Influenza Type B (ABISAI) Negative (Negative) Influenza A & B Note See Note 06/14/25 Range/Units 14:56 WBC (4.8-10.8) X10*3/uL RBC (4.20-5.50) X10*6/uL Hgb (12.0-16.0) g/dl Hct (37.0-47.0) % MCV (80.0-98.0) fL MCH (27.0-33.0) pg MCHC (31.0-35.0) g/dl RDW (11.0-16.0) % Plt Count (160-400) X10*3/uL MPV (9.4-12.3) fL Immature Gran % (Auto) (0.0-0.4) % Neut % (Auto) (45-73) % Lymph % (Auto) (20-40) % [place] % (Auto) (2-11) % Eos % (Auto) (0-4) % Baso % (Auto) (0-2) % Lymph # (Auto) (1.2-4.9) X10*3/uL [place] # (Auto) (0.1-1.2) X10*3/uL Eos # (Auto) (0.0-0.4) X10*3/uL Baso # (Auto) (0.0-0.2) X10*3/uL Abs Immat Gran (auto) (0.00-0.03) X10*3/uL Absolute Neuts (auto) (2.0-8.3) x10*3/uL Absolute Nucleated RBC (0.0-0.012) X10*3/uL Nucleated RBC % (auto) (0.0-0.2) /100WBC Sodium (135-145) mmol/L Potassium (3.3-5.1) mmol/L Chloride (96-108) mmol/L Carbon Dioxide (22-29) mmol/L Anion Gap (12-20) BUN (9-16) mg/dL Creatinine (0.5-1.4) mg/dL Estim Creat Clear Calc Estimated GFR Random Glucose (60-115) mg/dL Lactic Acid (0.5-2.0) mmol/L Lactic Acid F/U @ 2Hr 1.7 (0.5-2.0) mmol/L Calcium (8.4-10.2) mg/dL Total Bilirubin (0.0-1.0) mg/dL AST (5-31) U/L ALT (0-31) U/L Alkaline Phosphatase (39-117) U/L Troponin I High Sens (<3.5-17.0) ng/L Total Protein (6.5-8.0) g/dL Albumin (3.5-5.0) g/dL Lipase (8-78) U/L Urine Color Urine Appearance Urine pH (5.0-9.0) Ur Specific [place] (1.005-1.025) Urine Protein (Neg-Trace) mg/dL Urine Glucose (UA) (Negative) mg/dL Urine Ketones (Negative) mg/dL Urine Blood (Negative) Urine Nitrite (Negative) Ur Leukocyte Esterase (Negative) Urine RBC (0-2) /HPF Urine WBC (0-5) /HPF Ur Squamous Epith Cells (0-2) /HPF Urine Bacteria (None Seen) Hyaline Casts (0-2) /LPF COVID-19 (PHOEBE) (Negative) COVID-19 Clin Com Influenza Type A (ABISAI) (Negative) Influenza Type B (ABISAI) (Negative) Influenza A & B Note Independent Interpretation I performed an independent interpretation of an: EKG, Plain X-Ray and CT Scan Interpretation: I independently viewed the x-ray/Ct scan and agree with the radiology report I independently reviewed the EKG which shows sinus rhythm with PACs Radiology Impression Discussion of test interpretation with radiology: I have reviewed the radiologist's reading. Radiologist Impression: [place] [address] XRay Report Signed Patient: Joelle Keller MR#: [id number] : 1940 Acct:[id number] Age/Sex: 84 / F ADM Date: 06/14/25 Loc: HO.ED Attending Dr: Ordering Physician: Danica De Leon NP Date of Service: 06/14/25 Procedure(s): XR chest 2V Accession Number(s): [id number] cc: Ellie Marcos; Danica De Leon NP~ Reason for Exam: SOB CLINICAL HISTORY: SOB 2 view chest x-ray Comparison: CR/SR - XR CHEST 2 VIEWS - 06/02/25 12:08 EDT Findings: Unchanged opacity of the left lung base. Hyperinflation of the lungs. There is enlargement of the cardiopericardial silhouette. No acute fracture. Chronic fracture of the right proximal humerus. IMPRESSION: 1. No acute findings. [address] [address] XRay Report Signed Patient: Joelle Keller MR#: [id number] : 1940 Acct:[id number] Age/Sex: 84 / F ADM Date: 06/14/25 Loc: HO.ED Attending Dr: Ordering Physician: Montez Lowe MD Date of Service: 06/14/25 Procedure(s): XR KUB Accession Number(s): [id number] cc: Ellie Marcos; Motnez Lowe MD~ Reason for Exam: constipation CLINICAL HISTORY: constipation Exam: Supine abdominal radiographs. Comparison: Chest x-ray May 16, 2025. Findings: Air-filled loops of nondilated bowel are seen throughout the abdomen and pelvis. [id number] stool throughout the colon. Surgical clips project over the sacrum. No indirect evidence for free air on this supine exam. Poly methylmethacrylate is seen within the L3 vertebral body. Mild convex left thoracolumbar curvature. Bones are osteopenic. No infiltrates within the lung bases. Impression: No findings of bowel obstruction This document has been electronically signed by: Zana Roldan MD on 06/14/2025 12:17:[address] [place] [address] [address] Scan Report Signed Patient: Joelle Keller MR#: [id number] : 1940 Acct:[id number] Age/Sex: 84 / F ADM Date: 06/14/25 Loc: HO.ED Attending Dr: Ordering Physician: Danica De Leon NP Date of Service: 06/14/25 Procedure(s): CT abdomen pelvis wo IV con Accession Number(s): [id number] cc: Ellie Marcos; Danica De Leon NP~ Report Number: [id number]: Total DLP = 875.00 mGy-cm Reason for Exam: abdominal pain, r/o SBO, oral contrast only CLINICAL HISTORY: abdominal pain, r o SBO, oral contrast only CT abdomen and pelvis with contrast Comparison: CT/REG/SR - CT ABDOMEN PELVIS W IV CON - 02/03/25 08:59 EDT, images only Findings: Atelectasis. Cirrhosis Cholelithiasis noted, without significant wall thickening or pericholecystic stranding. Bile ducts are unremarkable. Fatty atrophy of the pancreas. Large duodenal diverticulum redemonstrated of the junction of the 2nd and 3rd segments. There is prominent peridiverticular inflammatory changes with fatty/fluid stranding. There appears to be peripancreatic inflammatory changes as wall. Differentials include pancreatitis or duodenal diverticulitis and/or both. Nodular thickening of the adrenal glands, left more than right similar to prior. Left adrenal gland nodule measures up to 1.5 cm with an average Hounsfield unit of 29, indeterminate. This may be further evaluated with biochemical assay and adrenal protocol imaging if indicated. Bilateral perinephric stranding, nonspecific. Bilateral hypodense renal cysts. No urolithiasis. No bowel obstruction, pneumoperitoneum, or pneumatosis. 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 Scattered atheromatous plaques throughout the thoracoabdominal aorta and branch vessels. Post hysterectomy. Scattered colonic diverticulosis without diverticulitis or colitis. Normal appendix. Mildly distended bladder. Osteopenia with diffuse multilevel spondylosis. Similar compression deformities noted at L3 with kyphoplasty cement and L4. Grade 1 anterolisthesis at L3-L4 and L4-L5, similar to prior. IMPRESSION: Suspect pancreatitis versus duodenal diverticulitis and/or both, please see discussion above. Clinical correlation advised. Additional findings described, please see above. This document has been electronically signed by: Vega Gardner MD on 06/14/2025 17:25:13 Independent Historian Clinical information obtained from an independent historian. History obtained from or confirmed by: Other (SON) Medications Administered Discontinued Medications Generic Name Dose Route Start Last Admin Trade Name Freq PRN Reason Stop Dose Admin Albuterol Sulfate 5 mg/ 0 mg 06/14/25 11:49 06/14/25 11:53 Albuterol/Ipratropium 3 ml INHALE 06/14/25 11:50 1 each ONCE ONE Administration Diatrizoate Meglum/Diatrizoate Sod 30 ml 06/14/25 15:13 06/14/25 15:14 Diatrizoate Meglumine, Sodium 30 Ml Solution PO 06/14/25 15:14 30 ml ONCE ONE Administration Diphenhydramine HCl 25 mg 06/14/25 15:03 06/14/25 15:16 Diphenhydramine Hcl 50 Mg/Ml Vial IVPUSH 06/14/25 15:04 25 mg ONCE ONE Administration Diphenhydramine HCl 25 mg 06/14/25 16:21 06/14/25 16:33 Diphenhydramine Hcl 50 Mg/Ml Vial IVPUSH 06/14/25 16:22 25 mg ONCE ONE Administration Famotidine 20 mg 06/14/25 11:39 06/14/25 11:48 Famotidine/Pf 20 Mg/2 Ml Vial IVPUSH 06/14/25 11:40 20 mg ONCE ONE Administration Fentanyl 50 mcg 06/14/25 16:08 06/14/25 16:33 Fentanyl Citrate/Pf 100 Mcg/2 Ml Vial IVPUSH 06/14/25 16:09 50 mcg ONCE ONE Administration Protocol Sodium Chloride 500 mls @ 999 mls/hr 06/14/25 11:39 06/14/25 12:31 Ns IV 06/14/25 12:09 Infused .Q31M STA Infusion Methylprednisolone Sodium Succinate 60 mg 06/14/25 11:39 06/14/25 11:48 Methylprednisolone Sod Succ 125 Mg/2 Ml Vial IVPUSH 06/14/25 11:40 60 mg ONCE ONE Administration Metoclopramide HCl 10 mg 06/14/25 16:21 06/14/25 16:33 Metoclopramide Hcl 10 Mg/2 Ml Vial IVPUSH 06/14/25 16:22 10 mg ONCE ONE Administration Ondansetron HCl 4 mg 06/14/25 11:39 06/14/25 11:48 Ondansetron Hcl 4 Mg/2 Ml Vial IVPUSH 06/14/25 11:40 4 mg ONCE ONE Administration Potassium Chloride 40 meq 06/14/25 12:13 06/14/25 12:32 Potassium Chloride Er 20 Meq Tab.Er.Prt PO 06/14/25 12:14 40 meq ONCE ONE Administration Critical Care Time Critical Care Time Critical Care Time: Yes Total Critical Care Time: 60 Attestation: Time includes: direct patient care, patient reassessment, coordination of patient care, interpretation of data (laboratory data, pulse oximetry, arterial blood gases and chest xrays), review of patient's medical records, medical consultation and documentation of patient care. Discharge Plan Discharge Clinical Impression: Pancreatitis, Elevated lactic acid level, Acute hypokalemia, Diverticulitis Patient Disposition: Admitted As Inpatient Print Language: Portuguese
[2025-06-14 11:50] LABS: Appearance Urine Clear; Glucose Urine UA Negative (Negative); PH 7.5 (5.0-9.0); Specific Gravity - Urine 1.010 (1.005-1.025); UMIC TRIGGER UACC YES
--- OUTSIDE RECORDS SUMMARY | 2025-06-14 11:52 | XMS_ITS | Data Portability ---
Author Organization [place] - [facility], Allergy Address [address] [place] [address] Assessment Encounter Date Assessment Date Assessment LastModified by Organization Details LastModified Time 02/23/2024 02/23/2024 83-year-old femjennifer vanegas presents today for follow-up of several concerns: Number one. 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 Exam shows ill-defined parotid tail swelling. I recommended continued observation. Number two. Dysphagia. This has progressed a little. Previous FOL unremarkable. BaS showed cricopharyngeal achalasia, anterior cervical web, severe esophageal dysmotility, and mild narrowing of GE junction Number three. Pain at her gingiva. Resolved. Dentures a little loose. Number four. Hearing loss. Hearing is normal to borderline normal in the speech frequencies at her last audio. We will recheck hearing as scheduled in March. She thinks she may want to proceed with hearing aids. [email or web address] Not available 02/24/2024 13:01:41 Plan of Treatment Reminders Order Date Submit Date Provider Last Modified By Organization Details Last Modified Time Details Appointments Establish ed 15 2025 01:45P Bhavesh SEN MD Not available Not available Not available Lab None recorded. Referral gastroent erologist referral - Swallow study findings including cricophar yngeal achalasia , anterior cervical web, severe esophagea l dysmotili ty, and mild narrowing of GE junction. Study done at [facility]. 2023 024 [email or web address] Negin Olson MD, [address] [place] [address] [place], [address], 03/27/2024 10:40:45 Procedures None recorded. Surgeries None recorded. Imaging None recorded. Medication Orders None recorded. Patient TargetsNo targets recorded. Patient InstructionsNo instructions recorded. Reason for Referral Interactive Project Manager Referral for Esophageal dysphagia Swallow study findings including cricopharyngeal achalasia, anterior cervical web, severe esophageal dysmotility, and mild narrowing of GE junction. Study done at [facility]. Referring Physician: Whit Sen, Otolaryngology, Encounter Date: 02/23/2024 Results Created Date Observation Date Name Description Value Unit Range Abnormal Flag Note LastModifiedBy Organization Detail LastModifiedTime 04/08/20 audio gram No observ ation record ed. Not Available 03/19 16:22:09 05/09/20 24 10/07/2022 imagi ng/di agnos tic resul t No observ ation record ed. [email or web address] Not Available 01:28:18 05/09/20 24 12/08/2020 imagi ng/di agnos tic resul t No observ ation record ed. [email or web address] Not Available 01:28:26 05/09/20 24 03/01/2021 imagi ng/di agnos tic resul t No observ ation record ed. [email or web address] Not Available 01:29:06 05/09/20 24 03/01/2021 imagi ng/di agnos tic resul t No observ ation record ed. [email or web address] Not Available 01:29:07 05/09/20 24 03/01/2021 imagi ng/di agnos tic resul t No observ ation record ed. [email or web address] Not Available 01:29:15 05/09/20 24 05/17/2021 imagi ng/di agnos tic resul t No observ ation record ed. [email or web address] Not Available 01:29:24 05/09/20 24 05/17/2021 imagi ng/di agnos tic resul t No observ ation record ed. [email or web address] Not Available 01:29:26 05/09/20 24 10/07/2022 audio gram No observ ation record ed. [email or web address] Not Available 01:29:39 04/04/20 25 02/04/2025 CT, neck, soft tissu e, w/ contr ast No observ ation record ed. [email or web address] [facility] (Medical Records) [address] [place], [address], 04/07/2025 09:07:47 04/04/20 25 02/04/2025 CT, neck, soft tissu e, w/ contr ast No observ ation record ed. [facility] (Medical Records) [address] [place], [address], 04/07/2025 09:08:05 Result Notes None recorded. 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; Note: Date Diagnosed : 03/12/2021 2:57 PM (D11.0) Not Available [facility] 4 02:28:25 Bilateral earache 914894967 Active 2021 Otalgia, bilateral ; Note: Date Diagnosed : 2 7:35 AM (H92.03) Not Available [facility] 4 02:28:06 Pharyngea l dysphagia 40364937206 105 Active 2021 Dysphagia , pharyngea l phase; Note: Date Diagnosed : 2 7:35 AM (R13.13) Not Available [facility] 4 02:28:06 Disorder of nasal sinus 4689462 Active 2021 Perforati on of nasal septum NOS; Note: Date Diagnosed : 2 7:35 AM (J34.89) Not Available [facility] 4 02:28:18 Disorder of the nose 41842102 Active 2021 Perforati on of nasal septum NOS; Note: Date Diagnosed : 2 7:35 AM (J34.89) Not Available [facility] 4 02:28:18 Chronic rhinitis 29342809 Active 2021 Chronic rhinitis; Note: Date Diagnosed : 2 7:35 AM (J31.0) Not Available [facility] 4 02:28:31 Sensorine ural hearing loss of bilateral ears 016627514 Active 2022 Sensorine ural hearing loss, bilateral ; Note: Date Diagnosed : 10/07/2022 9:42 AM (H90.3) Not Available [facility] 4 02:28:06 Bilateral tinnitus 93284710296 02 Active 2022 Tinnitus, bilateral ; Note: Date Diagnosed : 10/07/2022 9:42 AM (H93.13) Not Available [facility] 4 02:28:21 Esophagea l dysphagia 59716938 Active 2023 WHIT SEN MD [address] [place] [address],[place] [address], [place], [address] , [facility] 4 16:15:41 Hypertrop hy of lingual tonsil 625256988 Active 2024 WHIT SEN MD [address] [place] [address],[place] [address], [place], [address] , [facility] 5 16:37:54 Problem Notes None recorded. Procedures Surgical History Date Name Laterality Status Provider Name and Address Organization Details Recorded Time 04/04/20 25 Air & Speech Audio with Tymps - 42753, 78584 & 26405 completed ELIO MONTAGUE [address] [facility],[place] [address], [place], [address], [facility] 04/04/2025 13:14:54 04/04/20 25 Fiberoptic Laryngoscopy (Comprehensive) completed WHIT SEN MD [address] [place] [address],[facility] [address], [place], [address], [place] - [facility] 04/05/2025 16:37:47 04/05/20 24 Air & Speech Audio with Tymps - 12078, 21548 & 40307 completed ABDOULAYE LEMUELELIO ENCARNACION [address] [facility] [address], [place], [address], [place] - [facility] 04/05/2024 12:56:46 Imaging Results None recorded. Procedure Notes None recorded. Medical Equipment None Reported. Allergies Allergen ID Allergen Name Allergen Category Reaction Reaction Severity Criticality Documentation Date Start Date Code Code System Note Provider Name and Address Organization Details Recorded Time 43873 Adhesive agent (substanc e) environme nt,medica tion other Not available Not available 01/30/2024 84690 0007 SNOMED React ion: other react ion, Unkno wn; Not Available [facility] 4 00:51:32 65862 valsartan Not available hives Not available Not available 01/30/2024 22529 RxNorm React ion: other react ion, Hives ; Not Available [facility] 4 00:51:32 39585 gabapenti n medicatio n other Not available Not available 01/30/2024 00377 RxNorm React ion: other react ion, Unkno wn; Not Available [facility] 4 00:51:32 36270 ibuprofen medicatio n other Not available Not available 01/30/2024 5640 RxNorm React ion: other react ion, Unkno wn; Not Available [facility] 4 00:51:35 88766 nitrofura ntoin medicatio n hives Not available Not available 01/30/2024 7454 RxNorm React ion: other react ion, Hives ; Not Available [facility] 4 00:51:35 38365 Fish (substanc e) food,medi cation hives Not available Not available 01/30/2024 97353 1005 SNOMED React ion: other react ion, Hives ; Not Available [facility] 4 00:51:36 68195 vancomyci n medicatio n hives Not available Not available 01/30/2024 92408 RxNorm React ion: skin rashe s, hives ;; Not Available [facility] 4 00:51:36 60347 Iodinated contrast media (substanc e) medicatio n hives Not available Not available 01/30/2024 36316 2003 SNOMED React ion: other react ion, Hives ; Not Available [facility] 4 00:51:37 37474 Substance with sulfonami de structure and antibacte rial mechanism of action (substanc e) medicatio n hives Not available Not available 01/30/2024 60702 8003 SNOMED React ion: skin rashe s, hives ;; Not Available [facility] 4 00:51:38 59952 hydrocodo ne Not available other Not available Not available 01/30/2024 5489 RxNorm React ion: other react ion, Unkno wn; Not Available [facility] 4 00:51:39 20328 Product containin g penicilli n (product) medicatio n hives Not available Not available 01/30/2024 39100 8001 SNOMED React ion: skin rashe s, hives ;; Not Available [facility] 4 00:51:40 46181 codeine medicatio n hives Not available Not available 01/30/2024 2670 RxNorm React ion: skin rashe s, hives ;; Not Available [facility] 4 00:51:43 Medications Name Sig Start Date Stop Date Status Note LastModified by Organization Details LastModified Time metoprolol succinate ER 50 mg tablet,exte nded release 24 hr 04/30 completed Medication ID: [id number] Bra nd Name: metoprolol succinate Send Method: E-Prescrib ed Subs Allowed: subs OK Special Instructio n: TAKE 1 TABLET BY MOUTH EVERY DAY Medica tionGeneri cName: metoprolol succinate Not Available Not Available Not Available sucralfate 1 gram tablet 2020 active Medication ID: [id number] Bra nd Name: sucralfate Send Method: E-Prescrib ed Subs Allowed: subs OK Medicat ionGeneric Name: sucralfate Not Available Not Available Not Available tolu de la garza maleate 10 mg tablet 2020 active Medication ID: [id number] Yajaira nd Name: proclitoe razine maleate Se nd Method: E-Prescrib ed Subs Allowed: subs OK Medicat ionGeneric Name: emery carlisleine maleate Not Available Not Available Not Available omeprazole 40 mg capsule,del ayed release 04/30 completed Medication ID: [id number] Yajaira nd Name: omeprazole Send Method: E-Prescrib ed Subs Allowed: subs OK Special Instructio n: TAKE ONE CAPSULE BY MOUTH EVERY DAY Medica tionGeneri cName: omeprazole Not Available Not Available Not Available tramadol 50 mg tablet 04/30 completed Medication ID: [id number] Yajaira nd Name: tramadol S end Method: E-Prescrib ed Subs Allowed: subs OK Special Instructio n: TAKE 1 TABLET BY MOUTH TWICE A DAY Medica tionGeneri cName: tramadol Not Available Not Available Not Available alprazolam 0.25 mg tablet 04/30 completed Medication ID: [id number] Yajaira nd Name: alprazolam Send Method: E-Prescrib ed Subs Allowed: subs OK Special Instructio n: TAKE 1 TABLET BY MOUTH TWICE A DAY Medica tionGeneri cName: alprazolam Not Available Not Available Not Available dicyclomine 20 mg tablet 04/30 completed Medication ID: [id number] Yajaira nd Name: dicyclomin e Send Method: E-Prescrib ed Subs Allowed: subs OK Special Instructio n: TAKE 1 TABLET BY MOUTH 4 TIMES A DAY Medica tionGeneri cName: dicyclomin e Not Available Not Available Not Available levothyroxi ne 50 mcg tablet 04/30 completed Medication ID: [id number] Yajaira nd Name: levothyrox ine Send Method: E-Prescrib ed Subs Allowed: subs OK Special Instructio n: TAKE 1 TABLET BY MOUTH EVERY DAY Medica tionGeneri cName: levothyrox ine Not Available Not Available Not Available Advair Diskus 250 mcg-50 mcg/dose powder for inhalation 2020 active Medication ID: [id number] Yajaira nd Name: Advair Diskus Sen d Method: E-Prescrib ed Subs Allowed: subs OK Medicat ionGeneric Name: Advair Diskus Not Available Not Available Not Available hydrochloro thiazide 25 mg tablet active Medication ID: [id number] Yajaira nd Name: hydrochlor othiazide Send Method: E-Prescrib ed Subs Allowed: subs OK Special Instructio n: TAKE 1 TABLET BY MOUTH EVERY DAY Medica tionGeneri cName: hydrochlor othiazide Not Available Not Available Not Available imipramine 10 mg tablet 04/30 completed Medication ID: [id number] Yajaira nd Name: imipramine HCl Send Method: E-Prescrib ed Subs Allowed: subs OK Special Instructio n: TAKE 1 TABLET BY MOUTH AT BEDTIME Ny dicationGe nericName: imipramine HCl Not Available Not Available Not Available tamoxifen 20 mg tablet 04/30 completed Medication ID: [id number] Yajaira nd Name: tamoxifen Send Method: E-Prescrib ed Subs Allowed: subs OK Medicat ionGeneric Name: tamoxifen Not Available Not Available Not Available Ventolin HFA 90 mcg/actuati on aerosol inhaler active Medication ID: [id number] Yajaira nd Name: Ventolin HFA Send Method: E-Prescrib ed Subs Allowed: subs OK Special Instructio n: INHALE 2 PUFFS EVERY 6 HOURS NEEDED FOR SHORTNESS OF BREATH OR WHEEZING M edicationG enericName : Ventolin HFA Not Available Not Available Not Available oxycodone 5 mg tablet 04/04 completed Medication ID: [id number] Yajaira nd Name: oxycodone Send Method: E-Prescrib ed Subs Allowed: subs OK Special Instructio n: TAKE 1 TABLET BY MOUTH FOUR TIMES A DAY NEEDED Med icationGen ericName: oxycodone Not Available Not Available Not Available Vitamin D3 25 mcg (1,000 unit) tablet 2020 active Medication ID: [id number] Yajaira nd Name: Vitamin D3 Send Method: E-Prescrib ed Subs Allowed: subs OK Medicat ionGeneric Name: Vitamin D3 Not Available Not Available Not Available Spiriva with HandiHaler 18 mcg and inhalation capsules active Medication ID: [id number] Yajaira nd Name: Spiriva with HandiHaler Send Method: E-Prescrib ed Subs Allowed: subs OK Special Instructio n: INHALE 1 PUFF BY MOUTH VIA HANDIHANDL ER DAILY Medi cationGene ricName: Spiriva with HandiHaler Not Available Not Available Not Available Vitals Date Recorded Body height Body mass index (BMI) Body weight Provider Name and Address Organization Details Last Updated DateTime 02/23/2024 149.86 cm 39.6 kg/m2 49302.1 g Felisha Tidwell [facility] 02/23/2024 15:59:29 Date Recorded Body height Body mass index (BMI) Body weight Provider Name and Address Organization Details Last Updated DateTime 04/04/2025 149.86 cm 38.3 kg/m2 40346.75 g Felisha Bolivar MA [facility] 04/04/2025 13:19:51 Date Recorded Body height Body mass index (BMI) Body weight Provider Name and Address Organization Details Last Updated DateTime 04/05/2024 149.86 cm 39.8 kg/m2 87127.7 viri Felisha Bolivar MA [facility] 04/05/2024 13:08:35 Social History None recorded. Functional Status None recorded. Mental Status None recorded. Family History Nothing Reported. Medical History No medical history recorded. Gynecological HistoryNo gynecological history recorded. 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 I have been following her for many ENT related concerns including hearing loss, septal perforatio n, benign parotid tumors, dysphagia. Since her last visit she has seen the gastroente rologist and is scheduled for a dilation procedure. We did repeat audiogram today. This showed stable hearing from previous testing in September 2022. She is not yet a candidate for amplificat ion. Follow-up in a year or sooner if needed. [id number] ELIO LOPEZ [facility] [address] [place] [address] 04/05/2024 12:56:28 04/08/2024 13:09:25 Sensorineural hearing loss of bilateral ears 346869182 H90.3 Right Ear:Border line normal hearing through 2K Hz sloping to a moderate SNHL with excellent speech discrimina tion.Type A tympanogra m.Left Ear:Border line normal hearing through 2K Hz sloping to a moderate SNHL with excellent speech discrimina tion.Type A tympanogra m. [id number] WHIT SEN MD [facility] [address] [place] [address] 04/04/2025 12:38:03 04/04/2025 15:11:54 Hypertrophy of lingual tonsil 953313608 J35.1 [id number] I reviewed the report from her recent hospitaliz ation at [facility] but not the images. There was noted to be some lingual tonsil hypertroph y. I did perform flexible laryngosco py and this was not obstructiv e or asymmetric . Sensorineu ral hearing loss of bilateral ears 130731532 H90.3 Hearing is overall stable, but she has no desire to pursue hearing aids. We will repeat for any subjective change. Audiologic al evaluation results: Right ear:Normal sloping to severe sensorineu ral hearing loss with excellent word recognitio n.Left ear:Normal sloping to severe sensorineu ral hearing loss with excellent word recognitio n. Tympanomet ry:Right Ear:Type ALeft Ear:Type A Benign mateusz plasm of parotid gland 75831625 D11.0 CT scan showed parotid nodules. 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 No worrisome findings on exam today. There is indistinct fullness at the parotid tail's with a small nodule noted on the right. [id number] ELIO MONTAGUE [facility] [address] [place] [address] 04/04/2025 12:38:51 04/04/2025 15:14:07 Sensorineural hearing loss of bilateral ears 413963349 H90.3 Audiologic al evaluation results: Right ear: Normal sloping to severe sensorineu ral hearing loss with excellent word recognitio n. Left ear: Normal sloping to severe sensorineu ral hearing loss with excellent word recognitio n. Tympanomet ry: Right Ear:Type A Left Ear:Type A Health Concerns Section Related Observation LastModified by Organization Detai ls LastModified Time None Recorded Concern Status LastModified by Organization Details LastModified Time None Recorded Advance Directives Directive None Recorded Payers Insurance Date Sequence Insurance Name Policy Number Policy Myers Covered Member ID Myers Member ID Guarantor Name 04/04/2025 3 [place] Joelle Keller [id number] Joelle Keller 04/04/2025 1 [place] [employer] Joelle Keller [id number] Joelle Keller 04/04/2025 2 [place] [id number] Joelle Keller [id number] Joelle Keller Notes Date Note Type Note Provider Name and Address Organization Details Recorded Time 02/23/2024 text/html ROS as noted in the HPI 83-year-old female presents today for follow-up after barium swallow. She is having difficulty with swallowing. She is also having some stomach discomfort. She takes omeprazole about every other day and is taking Tums daily. WHIT SEN MD [address] [place] [address], [address], [facility] - [facility] 02/24/2024 13:03:51 04/05/2024 text/html Since her last visit, she has seen GI. She was diagnosed with a tortuous esophagus. She is scheduled for dilation in May. PV: 83-year-old female presents today for follow-up of several concerns:Number one. 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 Exam shows ill-defined parotid tail swelling.I reassured her that these small benign masses would not be contributing to her right arm pain and swelling. I recommended continued observation.Number two. Dysphagia. This has progressed a little. Previous FOL unremarkable. Will proceed with BaS.Number three. pain at her gingiva. No gingival ulceration or friable lesion. Her dentures are 40 years old and probably need to be refit, but she is not interested inproceeding with that at this point.Number four. Hearing loss. Hearing is normal to borderline normal in the speech frequencies at her last audio. She is not sure she wants to proceed with hearingaids. She will think about it and we will recheck hearing at her next visit.Given that she seems to have most difficulty with the television, I did recommend trying TV ears in the interim.Follow up 6 months. WHIT SEN MD [address] [facility],[address], [address], [place] - [facility] [place] 04/06/2024 04:49:50 04/04/2025 text/html Hospitalized last month bowels, COPD, throat swelled up. Had a CT showing parotid nodules and lingual tonsil hypertrophy.Had dilation last year. Starting to get sticky again. Opens with water. Dry heaves. PV: 83-year-old female presents today for follow-up of several concerns:Number one. 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 Exam shows ill-defined parotid tail swelling.I reassured her that these small benign masses would not be contributing to her right arm pain and swelling. I recommended continued observation.Number two. Dysphagia. This has progressed a little. Previous FOL unremarkable. Will proceed with BaS.Number three. pain at her gingiva. No gingival ulceration or friable lesion. Her dentures are 40 years old and probably need to be refit, but she is not interested inproceeding with that at this point.Number four. Hearing loss. Hearing is normal to borderline normal in the speech frequencies at her last audio. She is not sure she wants to proceed with hearingaids. She will think about it and we will recheck hearing at her next visit.Given that she seems to have most difficulty with the television, I did recommend trying TV ears in the interim.Follow up 6 months. WHIT SEN MD [address] [facility],[address], [address], [place] - [facility] 04/05/2025 16:41:17 OBGyn Episode No OBEpisode recorded.
--- OUTSIDE RECORDS SUMMARY | 2025-06-14 11:52 | XMS_ITS | Clinical Summary ---
Author Organization [facility] ity Address [address] [place] [address] Care Team Providers Care Center Machine Set Up Operator Name Role Phone John Thao MD Primary Care Provider [phone] Social History Tobacco Use Types Packs/Day Years [...] age to complete this topic Care Teams Center Machine Set Up Operator Relationship Specialty Start Date End Date John Thao MD [address] [place] [address] Dr [place] PCP - General [place] Floors Installer 10/31/18
--- OUTSIDE RECORDS SUMMARY | 2025-06-14 11:52 | XMS_ITS | Clinical Summary ---
Author Organization [facility] Address [address] [place] [address] Phone Care Team Providers Care Filing Or Registry Clerk Name Role Phone John Thao MD Primary Care Provider [phone] Allergies Active Allergy Reactions Criticality Noted Date [...] complete this topic Insurance [facility] Medicare Medicaid [place] Medicare [facility] [place] Care Teams Filing Or Registry Clerk Relationship Specialty Start Date End Date John Thao MD [address] [place] [address] [address] [place], [place] PCP - General 09/28/20
[2025-06-14] MEDS: Albuterol Sulfate 5 MG, Albuterol/Iprat 2.5/0.5MG 3 ML 3 ML INHALE (11:53)
[2025-06-14] MEDS: Potassium Chloride ER 20 MEQ TAB.ER.PRT 40 MEQ PO (12:32)
[2025-06-14 13:05] LABS: COVID-19 Test Negative (Negative); IDNOW Serial# 55D5AD1C; IDNOW Serial# 58CA691E; Influenza B2 Negative (Negative)
[2025-06-14 13:10] LABS: Troponin-I High Sensitivity 6.6 ng/L (<3.5-17.0)
[2025-06-14 14:45] LABS: Reflex Lactate? Lactic Acid Added
[2025-06-14 15:38] LABS: ~Lactic Acid-LAB USE ONLY 1.7 mmol/L (0.5-2.0)
--- NOTE | 2025-06-14 17:49 | PC.NURSE ---
Pt to ED 3 from triage, reports abd pain and N/V x past few days. Unable to tolerate food or po fluids. Pt is alert/ able to make needs known. Reports hx COPD, not on home O2. Pt with audible wheezing- respiratory at bedside and pt receiving neb tx. 18G IV to L AC, meds and IVF per NOV. Pt pending xray...
--- NOTE | 2025-06-14 18:00 | PM.IMHP ---
History of Present Illness Date of Service: 06/14/25 Chief Complaint: abd pain 84-year-old female with a past medical history of HTN, HLD, COPD, CKD, history of breast cancer, degenerative spine disease, anxiety, depression, irritable bowel syndrome, GERD, osteoporosis; presented to the hospital today with a chief complaint of abdominal pain. Patient reports that for the past 3 days she has been having abdominal pain; diffuse in nature; SOB nausea and vomiting. Denies any diarrhea. Denies any fevers and chills. Denies any chest pain or palpitations. Denies any concerns for food poisoning. Also reports she has been having shortness of breath. Reports occasional cough. Denies any sputum production. Patient denies any chest pain or palpitations. Review of all other systems is negative except mentioned above ER course: Per ER team, patient noted to have diffuse abdominal tenderness without any guarding or rigidity; CT abdomen pelvis shows findings concerning for pancreatitis as well as duodenal diverticulitis. Lipase elevated. Creatinine at her baseline. Has mild lactic acidosis. Given IV fluids. Patient also noted to be wheezing on presentation; given nebulizations and steroids. 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 difficile colitis Breast cancer Family History Father No problems noted. Mother Breast cancer Sister Breast cancer Surgical History History of esophagogastroduodenoscopy (EGD) H/O colonoscopy H/O lymph node biopsy Hx of cataract surgery History of tonsillectomy and adenoidectomy H/O hysterectomy for benign disease History of total bilateral knee replacement H/O kyphoplasty Social History Household Members: Children Household Members Other:: With Son Julian Housing: House Are you a primary vehicle care specialist to a significant other at home: No Do you presently have visiting nurse or other home services: No Alcohol intake: never Patient Tobacco Use Status: Former Tobacco user Years Smoked: 10 e-Cigarette/Vaping Use: Never Used Substance Use Type: Marijuana Advance Directives Date on File: 05/16/25 service: No Current occupational status: retired Cognitive needs: No Hearing needs: No Vision needs: Yes (rx glasses) Meds Allergies Allergy/AdvReac Type Severity Reaction Status Date / Time gabapentin Allergy Severe severe Verified 06/14/25 10:42 urinary incont. codeine (CODEINE) Allergy Intermediate Rash Verified 06/14/25 10:42 fish derived (FISH) Allergy Intermediate HIVES Verified 06/14/25 10:42 Iodinated Contrast Media (IV Allergy Intermediate HIVES Verified 06/14/25 10:42 Dye, Iodine Containing) nitrofurantoin Allergy Intermediate HIVES Verified 06/14/25 10:42 (Nitrofurantoin) Sulfa (Sulfonamide Allergy Intermediate RASH Verified 06/14/25 10:42 Antibiotics) (SULFA (SULFONAMIDE ANTIBIOTICS)) valsartan (From DIOVAN) Allergy Intermediate HIVES Verified 06/14/25 10:42 vancomycin (VANCOMYCIN) Allergy Intermediate RASH Verified 06/14/25 10:42 Penicillins (PENICILLINS) Allergy Mild RASH Verified 06/14/25 10:42 adhesive (ADHESIVE) Allergy Unknown UNKNOWN Verified 06/14/25 10:42 hydrocodone (Vicodin) Allergy Unknown Unknown Verified 06/14/25 10:42 ibuprofen (IBUPROFEN) AdvReac Unknown UNKNOWN Verified 06/14/25 10:42 Active Medications: Current Medications Acetaminophen (Acetaminophen 325 Mg Tablet) 650 mg PO Q6H PRN PRN Reason: Pain, Mild 1-3,fever,headache Albuterol/Ipratropium (Albuterol/Iprat 2.5/0.5mg 3 Ml Ampul.Neb) 3 ml INHALE RQ4H WHILE AWAKE PRN PRN Reason: Shortness of Breath Albuterol/Ipratropium (Albuterol/Iprat 2.5/0.5mg 3 Ml Ampul.Neb) 3 ml INHALE RQ6H WHILE AWAKE [facility] Calcium Carbonate (Calcium Carbonate 750 Mg Tab.Chew) 750 mg PO Q4H PRN PRN Reason: Heartburn Enoxaparin Sodium (Enoxaparin Sodium 40 Mg/0.4 Ml Syringe) 40 mg SUBCUT Q24H [facility] Hydromorphone HCl (Hydromorphone Hcl 0.5 Mg/0.5 Ml Syringe) 0.5 mg IVPUSH Q4H PRN; Protocol PRN Reason: Pain, Severe (Pain Scale 7-10) Lactated Ringer's (Lr) 1,000 mls @ 100 mls/hr IVCONT .Q10H [facility] Magnesium Hydroxide (Milk Of Magnesia 30 Ml Oral.Susp) 30 ml PO DAILY PRN PRN Reason: Constipation Melatonin (Melatonin 3 Mg Tablet) 6 mg PO BEDTIME PRN PRN Reason: Insomnia Methylprednisolone Sodium Succinate (Methylprednisolone Sod Succ 40 Mg/Ml Vial) 40 mg IVPUSH Q8H [facility] Sodium Chloride (0.9 % Sodium Chloride Flush 3 Ml Syringe) 3 ml IVFLUSH QSHIFT [facility] Home Medications ?Medication ?Instructions ?Recorded ?Confirmed ?Last Taken ?Type metoprolol succinate 50 mg 50 mg PO DAILY 06/15/20 06/14/25 06/14/25 History tablet,extended release 24 hr albuterol sulfate 2.5 mg/3 mL 2.5 mg inhalation Q4H PRN for 03/25/24 06/14/25 06/14/25 History (0.083 %) solution for nebulization wheezing docusate sodium 100 mg capsule 100 mg PO DAILY@0800 05/16/25 06/14/25 06/14/25 History (Colace) oxycodone 5 mg tablet 5 mg PO QID@01,07,13,19 PRN severe 06/14/25 06/14/25 06/14/25 History pain rabeprazole 20 mg tablet,delayed 20 mg PO DAILY@0630 06/14/25 06/14/25 06/14/25 History release (AcipHex) sertraline 25 mg tablet 25 mg PO DAILY@1800 06/14/25 06/14/25 06/14/25 History Physical Exam Vital Signs and Narrative: Vital Signs: Last Vital Signs Temp 98.1 F 06/14/25 16:26 Pulse 88 06/14/25 16:26 Resp 23 H 06/14/25 16:26 BP 154/71 H 06/14/25 16:26 Pulse Ox 97 06/14/25 16:26 O2 Del Method Room Air 06/14/25 16:26 BMI result Body Mass Index 35.7 Gen: Appears be in no acute distress HEENT: NCAT, Moist mucosa. Pulmonary: Coarse breath sounds CVS: Normal S1-S2 Abdomen: BS+, Soft, mildly tender diffusely Extremities: Warm well perfused Neuro: Alert and awake. Results Labs 06/15/25 07:02 06/15/25 07:02 Labs: Laboratory Results - last 24 hr 06/14/25 06/14/25 06/14/25 10:53 11:34 12:38 MCV 89.0 MCH 30.2 MCHC 34.0 RDW 13.4 Plt Count 353 MPV 10.0 Immature Gran % (Auto) 0.7 H Neut % (Auto) 80.9 H Lymph % (Auto) 9.3 L [place] % (Auto) 8.2 Eos % (Auto) 0.7 Baso % (Auto) 0.2 Lymph # (Auto) 1.1 L [place] # (Auto) 1.0 Eos # (Auto) 0.1 Baso # (Auto) 0.0 Abs Immat Gran (auto) 0.08 H Absolute Neuts (auto) 9.9 H Absolute Nucleated RBC 0.000 Nucleated RBC % (auto) 0.0 Anion Gap 16 Estim Creat Clear Calc 31.1 Estimated GFR 36 Random Glucose 92 Lactic Acid 2.3 H* Lactic Acid F/U @ 2Hr Calcium 10.3 H D Total Bilirubin 1.2 H AST 26 ALT 10 Alkaline Phosphatase 96 Troponin I High Sens 6.6 Total Protein 7.6 Albumin 3.9 Lipase 700 H Urine Color Yellow Urine Appearance Clear Urine pH 7.5 Ur Specific [place] 1.010 Urine Protein 30 (1+) H Urine Glucose (UA) Negative Urine Ketones Negative Urine Blood Negative Urine Nitrite Negative Ur Leukocyte Esterase Negative Urine RBC 0-2 Urine WBC 0-5 Ur Squamous Epith Cells 6-10 Urine Bacteria None Seen Hyaline Casts 0-2 COVID-19 (PHOEBE) Negative COVID-19 Clin Com See Note Influenza Type A (ABISAI) Negative Influenza Type B (ABISAI) Negative Influenza A & B Note See Note 06/14/25 14:56 MCV MCH MCHC RDW Plt Count MPV Immature Gran % (Auto) Neut % (Auto) Lymph % (Auto) [place] % (Auto) Eos % (Auto) Baso % (Auto) Lymph # (Auto) [place] # (Auto) Eos # (Auto) Baso # (Auto) Abs Immat Gran (auto) Absolute Neuts (auto) Absolute Nucleated RBC Nucleated RBC % (auto) Anion Gap Estim Creat Clear Calc Estimated GFR Random Glucose Lactic Acid Lactic Acid F/U @ 2Hr 1.7 Calcium Total Bilirubin AST ALT Alkaline Phosphatase Troponin I High Sens Total Protein Albumin Lipase Urine Color Urine Appearance Urine pH Ur Specific [place] Urine Protein Urine Glucose (UA) Urine Ketones Urine Blood Urine Nitrite Ur Leukocyte Esterase Urine RBC Urine WBC Ur Squamous Epith Cells Urine Bacteria Hyaline Casts COVID-19 (PHOEBE) COVID-19 Clin Com Influenza Type A (ABISAI) Influenza Type B (ABISAI) Influenza A & B Note Assessment and Plan (1) Pancreatitis: Qualifiers: Acute pancreatitis complication: unspecified Chronicity: acute Pancreatitis type: unspecified pancreatitis type Qualified Code(s): K85.90 - Acute pancreatitis without necrosis or infection, unspecified Status: Acute Plan 84-year-old female with a past medical history of HTN, HLD, COPD, CKD, history of breast cancer, degenerative spine disease, anxiety, depression, irritable bowel syndrome, GERD, osteoporosis; presented to the hospital today with a chief complaint of abdominal pain. Admitted for following Acute pancreatitis: Duodenal diverticulitis: Unclear etiology. pt denies alcohol use NPO Gentle IV fluids Pain control GI consult for further input Will obtain triglyceride levels Empirically without ceftriaxone and Flagyl. General surgery follow-up in a.m. CKD: Creatinine at baseline. Acute COPD exacerbation: Continue Solu-Medrol IV. Continue nebulizations standing and p.r.n. Supplemental oxygen p.r.n. Hypothyroidism: Continue home levothyroxine Hypertension: Continue home metoprolol. Hold home hydrochlorothiazide for now DVT prophylaxis: Lovenox Code status: Full code Quality Stroke Does the patient have a stroke diagnosis?: No VTE Prior VTE?: No VTE Risk Level:: Medical - moderate - high VTE Device Contraindication: Treatment Not Indicated VTE Drug Contraindication: N/A - Med Ordered
[2025-06-14] MEDS: Lactated Ringers 1,000 ML 100 ML IVCONT (18:09)
--- NOTE | 2025-06-14 18:26 | PHA.MEDREC ---
Pharmacy Consult ? Medication Reconciliation Pharmacy has completed the medication reconciliation. Spoke with patient to confirm medications. Patient provided and list with specific times for all medications.
[2025-06-14] MEDS: metroNIDAZOLE/NS 500 MG/100 ML PIGGYBACK 100 MG IV (18:40)
--- NOTE | 2025-06-14 19:24 | PC.NURSE ---
this rn assumed care of pt, pt resting in stretcher, no acute distress noted, pt offers no complaints at this time, fluids and antibiotics administering
[2025-06-14] MEDS: Albuterol/Iprat 2.5/0.5MG 3 ML AMPUL.NEB INHALE (19:38)
--- NOTE | 2025-06-14 19:51 | PC.NURSE ---
rt at bedside with pt, breathing treatment, pt reports relief after treatment sating 95%.
--- NOTE | 2025-06-14 19:55 | PM.CNGS ---
History of Present Illness Consult details Consult date: 06/14/25 Requesting physician: Nilo Dunbar Narrative: 84-year-old female patient with a past medical history for COPD, asthma, chronic kidney disease, hyperlipidemia, osteoporosis, irritable bowel syndrome, hypertension, parotid tumors, thyroid cancer, well known to me with a prior history of breast cancer now presenting with a 3 day history of generalized abdominal pain associated with nausea and vomiting. She reports no bowel movement for least 3 days and feels the abdominal pain mainly in the upper abdomen. She has had a low-grade abdominal pain for several months prior to this. She presented to the emergency department and was noted to have an elevated WBC of 12.2, sodium of 130, potassium of 3.0, chloride of 95, lactate of 2.3, and lipase of 700. CT abdomen and pelvis revealed inflammatory changes around the duodenal loop with a duodenal diverticulum inflammatory changes around the pancreas as well. Findings are suggestive of either duodenal diverticulitis verses pancreatitis. There was evidence of cholelithiasis without cholecystitis. Surgical consultation was requested for further management of the duodenal diverticulum. 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 difficile colitis Breast cancer Family History Family History Father No problems noted. Mother Breast cancer Sister Breast cancer Surgical History Surgical History History of esophagogastroduodenoscopy (EGD) H/O colonoscopy H/O lymph node biopsy Hx of cataract surgery History of tonsillectomy and adenoidectomy H/O hysterectomy for benign disease History of total bilateral knee replacement H/O kyphoplasty Social History Social History Household Members: Children Household Members Other:: Son Julian Housing: House Are you a primary rn patient care to a significant other at home: No Do you presently have visiting nurse or other home services: No Alcohol intake: never Patient Tobacco Use Status: Former Tobacco user Smoked in Last 30 Days: No e-Cigarette/Vaping Use: Never Used Substance Use Type: Marijuana Advance Directives: Yes Advance Directives on File: Yes Advance Directives Date on File: 05/16/25 service: No Current occupational status: retired Cognitive needs: No Hearing needs: No Vision needs: Yes (rx glasses) Meds Allergies Allergy/AdvReac Type Severity Reaction Status Date / Time gabapentin Allergy Severe severe Verified 06/14/25 10:42 urinary incont. codeine (CODEINE) Allergy Intermediate Rash Verified 06/14/25 10:42 fish derived (FISH) Allergy Intermediate HIVES Verified 06/14/25 10:42 Iodinated Contrast Media (IV Allergy Intermediate HIVES Verified 06/14/25 10:42 Dye, Iodine Containing) nitrofurantoin Allergy Intermediate HIVES Verified 06/14/25 10:42 (Nitrofurantoin) Sulfa (Sulfonamide Allergy Intermediate RASH Verified 06/14/25 10:42 Antibiotics) (SULFA (SULFONAMIDE ANTIBIOTICS)) valsartan (From DIOVAN) Allergy Intermediate HIVES Verified 06/14/25 10:42 vancomycin (VANCOMYCIN) Allergy Intermediate RASH Verified 06/14/25 10:42 Penicillins (PENICILLINS) Allergy Mild RASH Verified 06/14/25 10:42 adhesive (ADHESIVE) Allergy Unknown UNKNOWN Verified 06/14/25 10:42 hydrocodone (Vicodin) Allergy Unknown Unknown Verified 06/14/25 10:42 ibuprofen (IBUPROFEN) AdvReac Unknown UNKNOWN Verified 06/14/25 10:42 Active Medications: Current Medications Acetaminophen (Acetaminophen 325 Mg Tablet) 650 mg PO Q6H PRN PRN Reason: Pain, Mild 1-3,fever,headache Albuterol/Ipratropium (Albuterol/Iprat 2.5/0.5mg 3 Ml Ampul.Neb) 3 ml INHALE RQ4H WHILE AWAKE PRN PRN Reason: Shortness of Breath Albuterol/Ipratropium (Albuterol/Iprat 2.5/0.5mg 3 Ml Ampul.Neb) 3 ml INHALE RQ6H WHILE AWAKE [facility] Last Admin: 06/14/25 19:38 Dose: 3 ml Calcium Carbonate (Calcium Carbonate 750 Mg Tab.Chew) 750 mg PO Q4H PRN PRN Reason: Heartburn Ceftriaxone Sodium (Ceftriaxone Sodium 1 Gm Vial) 1 gm IVPUSH Q24H [facility] Last Admin: 06/14/25 18:38 Dose: 1 gm Enoxaparin Sodium (Enoxaparin Sodium 40 Mg/0.4 Ml Syringe) 40 mg SUBCUT Q24H [facility] Last Admin: 06/14/25 18:09 Dose: 40 mg Hydromorphone HCl (Hydromorphone Hcl 0.5 Mg/0.5 Ml Syringe) 0.5 mg IVPUSH Q4H PRN; Protocol PRN Reason: Pain, Severe (Pain Scale 7-10) Lactated Ringer's (Lr) 1,000 mls @ 100 mls/hr IVCONT .Q10H [facility] Last Admin: 06/14/25 18:09 Dose: 100 mls/hr Metronidazole (Flagyl) 500 mg in 100 mls @ 100 mls/hr IV Q8H [facility] Last Admin: 06/14/25 18:40 Dose: 100 mls/hr Levothyroxine Sodium (Levothyroxine Sodium 50 Mcg Tablet) 50 mcg PO DAILY@0600 [facility] Magnesium Hydroxide (Milk Of Magnesia 30 Ml Oral.Susp) 30 ml PO DAILY PRN PRN Reason: Constipation Melatonin (Melatonin 3 Mg Tablet) 6 mg PO BEDTIME PRN PRN Reason: Insomnia Methylprednisolone Sodium Succinate (Methylprednisolone Sod Succ 40 Mg/Ml Vial) 40 mg IVPUSH Q8H [facility] Last Admin: 06/14/25 18:09 Dose: 40 mg Metoprolol Succinate (Metoprolol Succinate Er 50 Mg Tab.Er.24h) 50 mg PO DAILY [facility]; Protocol Ondansetron HCl (Ondansetron Hcl 4 Mg/2 Ml Vial) 4 mg IVPUSH Q8H PRN PRN Reason: Nausea and Vomiting Sodium Chloride (0.9 % Sodium Chloride Flush 3 Ml Syringe) 3 ml IVFLUSH QSHIFT [facility] Tramadol HCl (Tramadol Hcl 50 Mg Tablet) 50 mg PO Q6H PRN PRN Reason: Breakthrough Pain Home Medications ?Medication ?Instructions ?Recorded ?Confirmed ?Last Taken ?Type metoprolol succinate 50 mg 50 mg PO DAILY 06/15/20 06/14/25 06/14/25 History tablet,extended release 24 hr albuterol sulfate 2.5 mg/3 mL 2.5 mg inhalation Q4H PRN for 03/25/24 06/14/25 06/14/25 History (0.083 %) solution for nebulization wheezing docusate sodium 100 mg capsule 100 mg PO DAILY@0800 05/16/25 06/14/25 06/14/25 History (Colace) oxycodone 5 mg tablet 5 mg PO QID@01,07,13,19 PRN severe 06/14/25 06/14/25 06/14/25 History pain rabeprazole 20 mg tablet,delayed 20 mg PO DAILY@0630 06/14/25 06/14/25 06/14/25 History release (AcipHex) sertraline 25 mg tablet 25 mg PO DAILY@1800 06/14/25 06/14/25 06/14/25 History Physical Exam Vital Signs: Vital Signs: Last Vital Signs Temp 98.1 F 06/14/25 16:26 Pulse 87 06/14/25 19:42 Resp 23 H 06/14/25 19:42 BP 154/71 H 06/14/25 16:26 Pulse Ox 97 06/14/25 16:26 O2 Del Method Room Air 06/14/25 16:26 BMI result Body Mass Index 35.7 Const: General: ill appearing Nutritional Appearance: well nourished Orientation/consciousness: patient oriented x3 HEENT: Head: Yes normocephalic and Yes atraumatic Ears: hearing grossly normal bilaterally Resp: Effort & Inspection: normal respiratory effort, no audible wheezes, no cough and no respiratory distress GI: Inspection: Yes normal to inspection Palpation (GI): Soft to palpation, Tenderness to palpation present (GI) in the epigastrum and in the RUQ, no guarding and not rigid Percussion: Yes normal to percussion Auscultation: Absent bowel sounds Rectal Exam - Female: deferred Skin: Other: Warm, dry, normal color Neuro: General: patient oriented x3 Results Labs 06/14/25 10:53 06/14/25 10:53 Labs: Abnormal lab results 06/14/25 06/14/25 06/14/25 Range/Units 10:53 11:34 12:38 WBC 12.2 H (4.8-10.8) X10*3/uL Immature Gran % (Auto) 0.7 H (0.0-0.4) % Neut % (Auto) 80.9 H (45-73) % Lymph % (Auto) 9.3 L (20-40) % Lymph # (Auto) 1.1 L (1.2-4.9) X10*3/uL Abs Immat Gran (auto) 0.08 H (0.00-0.03) X10*3/uL Absolute Neuts (auto) 9.9 H (2.0-8.3) x10*3/uL Sodium 133 L (135-145) mmol/L Potassium 3.0 L D (3.3-5.1) mmol/L Chloride 95 L (96-108) mmol/L BUN 23 H (9-16) mg/dL Lactic Acid 2.3 H* (0.5-2.0) mmol/L Calcium 10.3 H D (8.4-10.2) mg/dL Total Bilirubin 1.2 H (0.0-1.0) mg/dL Lipase 700 H (8-78) U/L Urine Protein 30 (1+) H (Neg-Trace) mg/dL Short CBC 06/14/25 Range/Units 10:53 WBC 12.2 H (4.8-10.8) X10*3/uL Hgb 14.3 (12.0-16.0) g/dl Hct 42.1 (37.0-47.0) % Plt Count 353 (160-400) X10*3/uL BMP 06/14/25 10:53 Sodium 133 L Potassium 3.0 L D Chloride 95 L Carbon Dioxide 25 BUN 23 H Creatinine 1.39 Calcium 10.3 H D Liver Function 06/14/25 Range/Units 10:53 Total Bilirubin 1.2 H (0.0-1.0) mg/dL AST 26 (5-31) U/L ALT 10 (0-31) U/L Alkaline Phosphatase 96 (39-117) U/L Albumin 3.9 (3.5-5.0) g/dL Urine 06/14/25 Range/Units 11:34 Urine Color Yellow Urine Appearance Clear Urine pH 7.5 (5.0-9.0) Ur Specific [place] 1.010 (1.005-1.025) Urine Protein 30 (1+) H (Neg-Trace) mg/dL Urine Glucose (UA) Negative (Negative) mg/dL All other labs normal. Imaging Abdomen CT scan report/results: image reviewed CT scan - pelvis: image reviewed Assessment and Plan (1) Pancreatitis: Qualifiers: Chronicity: acute Pancreatitis type: unspecified pancreatitis type Acute pancreatitis complication: unspecified Qualified Code(s): K85.90 - Acute pancreatitis without necrosis or infection, unspecified Status: Acute (2) Nausea and vomiting: Qualifiers: Vomiting type: unspecified Qualified Code(s): R11.2 - Nausea with vomiting, unspecified Status: Acute (3) Duodenal diverticulum: Status: Acute Plan 84-year-old female patient well known to me with multiple medical problems presenting with complaints of abdominal pain in the upper abdomen with the associated nausea and vomiting, and no bowel movement for 3 days. Patient is noted to be tender in the upper abdomen without rebound, guarding or rigidity. Workup revealed an elevated WBC, hypochloremia, hyponatremia, with an elevated lipase suggestive of a possible pancreatitis. Review of CT abdomen and pelvis reveals a previously identified duodenal diverticulum with inflammatory changes possibly from the pancreatitis (possibly due to gallstones versus hyperlipidemia) or duodenal diverticulitis. No surgical intervention is recommended at this time. Recommend supportive care with a pancreatitis, correction of electrolyte imbalance and bowel rest. I will continue to follow during this hospitalization. Procedures Date of Service Date of Service: 06/14/25
[2025-06-14] MEDS: 0.9 % Sodium Chloride Flush 3 ML SYRINGE IVFLUSH (20:53)
[2025-06-15] VITALS (10 sets, daily range): BP systolic 111–172; BP diastolic 56–82; PULSE 73–88; RESP 16–20; TEMP 36.4–36.9; O2SAT 93–99
[2025-06-15] MEDS: metroNIDAZOLE/NS 500 MG/100 ML PIGGYBACK 100 MG IV ×3 (03:33→17:25)
[2025-06-15] MEDS: Lactated Ringers 1,000 ML 100 ML IVCONT ×2 (05:29→17:26)
--- NOTE | 2025-06-15 06:38 | PC.ADMIT ---
Pt arrived at approx 2030 from the ED via stretcher. Pt AxO x 4. HUTCHINSON. Pt able to walk to BR with 1 assist. Pt NPO, on IV hydration per MAR. On telemetry, NSR. Denies pain at this time. Please see flowsheets, worklist tasks, and MAR for more information. Care ongoing.
[2025-06-15] MEDS: Metoprolol Succinate ER 50 MG TAB.ER.24H PO (07:36)
[2025-06-15] MEDS: 0.9 % Sodium Chloride Flush 3 ML SYRINGE IVFLUSH (07:36)
[2025-06-15] MEDS: Albuterol/Iprat 2.5/0.5MG 3 ML AMPUL.NEB INHALE ×3 (07:36→19:25)
[2025-06-15 07:53] LABS: Hematocrit 41.0 % (37.0-47.0); Hemoglobin 13.7 g/dl (12.0-16.0); Imm Gran Abs Auto 0.22 X10*3/uL (0.00-0.03); Imm Gran Pct Auto 1.3 % (0.0-0.4); Lymphocytes Absolute Auto 0.7 X10*3/uL (1.2-4.9); MANUAL DIFF FLAG SCAN; Mean Corpuscular HGB Conc 33.4 g/dl (31.0-35.0); Mean Corpuscular Hemoglobin 30.0 pg (27.0-33.0); Mean Corpuscular Volume 89.7 fL (80.0-98.0); NRBC Abs Auto 0.000 X10*3/uL (0.0-0.012); NRBC Pct Auto 0.0 /100WBC (0.0-0.2); Platelet Count 317 X10*3/uL (160-400); Red Blood Count 4.57 X10*6/uL (4.20-5.50); SCAN SMEAR FLAG 1; White Blood Count 16.9 X10*3/uL (4.8-10.8)
[2025-06-15 08:15] LABS: Alanine Aminotransferase 8 U/L (0-31); Albumin Level 3.5 g/dL (3.5-5.0); Alkaline Phosphatase 87 U/L (39-117); Anion Gap 15 (12-20); Aspartate Amino Transferase 25 U/L (5-31); Blood Urea Nitrogen 23 mg/dL (9-16); Calcium 9.4 mg/dL (8.4-10.2); Carbon Dioxide 23 mmol/L (22-29); Chloride 97 mmol/L (96-108); Cholesterol 105 mg/dL (<200); Creatinine Clr Calc Pharmacy 35.4; Estimated Glomerular Filt Rate 42; HDL Cholesterol 33 mg/dL (>40); Potassium 3.3 mmol/L (3.3-5.1); Sodium 132 mmol/L (135-145); Total Protein 6.8 g/dL (6.5-8.0); Triglycerides 53 mg/dL (<150)
--- NOTE | 2025-06-15 08:36 | PM.GICN ---
History of Present Illness Data of Consult Service Date: 06/15/25 Requesting physician: Nilo Dunbar Primary Care Provider: MYCHAL Mcarthur Reason for consult: Pancreatitis 84-year-old female who presented to the hospital for 3 days of abdominal pain and difficulty passing a bowel movement. History obtained from the patient, who reports longstanding issues with bowels. Reports worsening abdominal pain in epigastrium associated with nausea, dry heaving and decreased appetite. No prior history of similar pain, but she associated this with constipation ongoing for 3 days. She presented to the emergency room for further evaluation and was found to have possible acute pancreatitis. Vitals have remained stable. Labs with leukocytosis and hemoconcentration. Chem 7 with hyponatremia, hypokalemia and mild increase in creatinine, which today has improved. Initial lactate was high at 2.3, which has normalized since then. Initial lipase of 700 noted. Imaging personally reviewed and duodenal diverticulum in D2 noted with some mild fatty stranding. She also has significantly atrophied pancreas with peripancreatic stranding specially in the head and body. Cholelithiasis noted. Currently seen at bedside, and reports improvement in abdominal pain. Her appetite is back, and she is looking forward to breakfast. 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 difficile colitis Breast cancer Family History Family History Father No problems noted. Mother Breast cancer Sister Breast cancer Surgical History Surgical History History of esophagogastroduodenoscopy (EGD) H/O colonoscopy H/O lymph node biopsy Hx of cataract surgery History of tonsillectomy and adenoidectomy H/O hysterectomy for benign disease History of total bilateral knee replacement H/O kyphoplasty Social History Social History Household Members: Children Household Members Other:: With Son Julian Housing: House Are you a primary interior plant caretaker to a significant other at home: No Do you presently have visiting nurse or other home services: No Alcohol intake: never Patient Tobacco Use Status: Former Tobacco user Years Smoked: 10 e-Cigarette/Vaping Use: Never Used Substance Use Type: Marijuana Advance Directives Date on File: 05/16/25 service: No Current occupational status: retired Cognitive needs: No Hearing needs: No Vision needs: Yes (rx glasses) Meds Allergies Allergy/AdvReac Type Severity Reaction Status Date / Time gabapentin Allergy Severe severe Verified 06/14/25 10:42 urinary incont. codeine (CODEINE) Allergy Intermediate Rash Verified 06/14/25 10:42 fish derived (FISH) Allergy Intermediate HIVES Verified 06/14/25 10:42 Iodinated Contrast Media (IV Allergy Intermediate HIVES Verified 06/14/25 10:42 Dye, Iodine Containing) nitrofurantoin Allergy Intermediate HIVES Verified 06/14/25 10:42 (Nitrofurantoin) Sulfa (Sulfonamide Allergy Intermediate RASH Verified 06/14/25 10:42 Antibiotics) (SULFA (SULFONAMIDE ANTIBIOTICS)) valsartan (From DIOVAN) Allergy Intermediate HIVES Verified 06/14/25 10:42 vancomycin (VANCOMYCIN) Allergy Intermediate RASH Verified 06/14/25 10:42 Penicillins (PENICILLINS) Allergy Mild RASH Verified 06/14/25 10:42 adhesive (ADHESIVE) Allergy Unknown UNKNOWN Verified 06/14/25 10:42 hydrocodone (Vicodin) Allergy Unknown Unknown Verified 06/14/25 10:42 ibuprofen (IBUPROFEN) AdvReac Unknown UNKNOWN Verified 06/14/25 10:42 Active Medications: Current Medications Acetaminophen (Acetaminophen 325 Mg Tablet) 650 mg PO Q6H PRN PRN Reason: Pain, Mild 1-3,fever,headache Albuterol/Ipratropium (Albuterol/Iprat 2.5/0.5mg 3 Ml Ampul.Neb) 3 ml INHALE RQ4H WHILE AWAKE PRN PRN Reason: Shortness of Breath Albuterol/Ipratropium (Albuterol/Iprat 2.5/0.5mg 3 Ml Ampul.Neb) 3 ml INHALE RQ6H WHILE AWAKE [facility]ANG Last Admin: 06/15/25 07:36 Dose: 3 ml Calcium Carbonate (Calcium Carbonate 750 Mg Tab.Chew) 750 mg PO Q4H PRN PRN Reason: Heartburn Ceftriaxone Sodium (Ceftriaxone Sodium 1 Gm Vial) 1 gm IVPUSH Q24H [facility] Last Admin: 06/14/25 18:38 Dose: 1 gm Enoxaparin Sodium (Enoxaparin Sodium 40 Mg/0.4 Ml Syringe) 40 mg SUBCUT Q24H [facility] Last Admin: 06/14/25 18:09 Dose: 40 mg Hydromorphone HCl (Hydromorphone Hcl 0.5 Mg/0.5 Ml Syringe) 0.5 mg IVPUSH Q4H PRN; Protocol PRN Reason: Pain, Severe (Pain Scale 7-10) Lactated Ringer's (Lr) 1,000 mls @ 100 mls/hr IVCONT .Q10H [facility] Last Admin: 06/15/25 05:29 Dose: 100 mls/hr Metronidazole (Flagyl) 500 mg in 100 mls @ 100 mls/hr IV Q8H [facility] Last Infusion: 06/15/25 04:49 Dose: Infused Levothyroxine Sodium (Levothyroxine Sodium 50 Mcg Tablet) 50 mcg PO DAILY@0600 [facility] Last Admin: 06/15/25 05:54 Dose: 50 mcg Magnesium Hydroxide (Milk Of Magnesia 30 Ml Oral.Susp) 30 ml PO DAILY PRN PRN Reason: Constipation Melatonin (Melatonin 3 Mg Tablet) 6 mg PO BEDTIME PRN PRN Reason: Insomnia Last Admin: 06/14/25 20:59 Dose: 6 mg Methylprednisolone Sodium Succinate (Methylprednisolone Sod Succ 40 Mg/Ml Vial) 40 mg IVPUSH Q8H [facility] Last Admin: 06/15/25 03:33 Dose: 40 mg Metoprolol Succinate (Metoprolol Succinate Er 50 Mg Tab.Er.24h) 50 mg PO DAILY [facility]; Protocol Last Admin: 06/15/25 07:36 Dose: 50 mg Ondansetron HCl (Ondansetron Hcl 4 Mg/2 Ml Vial) 4 mg IVPUSH Q8H PRN PRN Reason: Nausea and Vomiting Sertraline HCl (Sertraline Hcl 25 Mg Tablet) 25 mg PO DAILY@1800 [facility] Sodium Chloride (0.9 % Sodium Chloride Flush 3 Ml Syringe) 3 ml IVFLUSH QSHIFT [facility] Last Admin: 06/15/25 07:36 Dose: 3 ml Tramadol HCl (Tramadol Hcl 50 Mg Tablet) 50 mg PO Q6H PRN PRN Reason: Breakthrough Pain Home Medications ?Medication ?Instructions ?Recorded ?Confirmed ?Last Taken ?Type metoprolol succinate 50 mg 50 mg PO DAILY 06/15/20 06/14/25 06/14/25 History tablet,extended release 24 hr albuterol sulfate 2.5 mg/3 mL 2.5 mg inhalation Q4H PRN for 03/25/24 06/14/25 06/14/25 History (0.083 %) solution for nebulization wheezing docusate sodium 100 mg capsule 100 mg PO DAILY@0800 05/16/25 06/14/25 06/14/25 History (Colace) oxycodone 5 mg tablet 5 mg PO QID@01,07,13,19 PRN severe 06/14/25 06/14/25 06/14/25 History pain rabeprazole 20 mg tablet,delayed 20 mg PO DAILY@0630 06/14/25 06/14/25 06/14/25 History release (AcipHex) sertraline 25 mg tablet 25 mg PO DAILY@1800 06/14/25 06/14/25 06/14/25 History Physical Exam Exam: Exam: Elderly female No acute distress Abdomen soft, nontender, nondistended Mild lower extremity edema Vital Signs: Vital Signs: Last Vital Signs Temp 97.5 F 06/15/25 07:07 Pulse 85 06/15/25 07:38 Resp 18 06/15/25 07:38 BP 172/82 H 06/15/25 07:07 Pulse Ox 94 06/15/25 07:07 O2 Del Method Room Air 06/15/25 07:07 BMI result Body Mass Index 35.1 Results Labs 06/15/25 07:02 06/15/25 07:02 Labs: Short CBC 06/14/25 06/15/25 Range/Units 10:53 07:02 WBC 12.2 H 16.9 H (4.8-10.8) X10*3/uL Hgb 14.3 13.7 (12.0-16.0) g/dl Hct 42.1 41.0 (37.0-47.0) % Plt Count 353 317 (160-400) X10*3/uL BMP 06/14/25 06/15/25 10:53 07:02 Sodium 133 L 132 L Potassium 3.0 L D 3.3 Chloride 95 L 97 Carbon Dioxide 25 23 BUN 23 H 23 H Creatinine 1.39 1.21 Calcium 10.3 H D 9.4 D Liver Function 06/14/25 06/15/25 Range/Units 10:53 07:02 Total Bilirubin 1.2 H 0.8 (0.0-1.0) mg/dL AST 26 25 (5-31) U/L ALT 10 8 (0-31) U/L Alkaline Phosphatase 96 87 (39-117) U/L Albumin 3.9 3.5 (3.5-5.0) g/dL Urine 06/14/25 Range/Units 11:34 Urine Color Yellow Urine Appearance Clear Urine pH 7.5 (5.0-9.0) Ur Specific [place] 1.010 (1.005-1.025) Urine Protein 30 (1+) H (Neg-Trace) mg/dL Urine Glucose (UA) Negative (Negative) mg/dL Assessment and Plan (1) Pancreatitis: Qualifiers: Chronicity: acute Pancreatitis type: unspecified pancreatitis type Acute pancreatitis complication: unspecified Qualified Code(s): K85.90 - Acute pancreatitis without necrosis or infection, unspecified Status: Acute (2) Gallstones: Status: Acute (3) Constipation: Status: Acute (4) Duodenal diverticulum: Status: Acute Plan Presenting with mild acute interstitial pancreatitis likely secondary to gallstones. Continues to be volume contracted based on labs. No local complications on initial imaging such as peripancreatic fluid. Duodenal diverticulitis noted, suspect this is bystander inflammation from adjacent pancreatitis. Plan: -consider LR bolus 1 L today and goal directed fluid replacement -monitor urine output (goal 1ml/kg/day) -monitor CBC (goal 30% reduction in hematocrit from admission in 24h) -monitor BG and manage hyperglycemia to avoid risk of infection and local complication -OK to advance diet - pt should be on LOW fat diet -Management of cholelithiasis to avoid recurrence of pancreatitis as per surgery Thank you for allowing me to participate in her care. Please do not hesitate to reach out for any questions or concerns. Procedures Date of Service Date of Service: 06/15/25
--- NOTE | 2025-06-15 09:07 | HO.PM.IMPN ---
Subjective Subjective Date of Service: 06/15/25 Interval History: abd pain still present but appetite improved Physical Exam Exam: Exam: General: AO X 3, no acute distress Resp: CTA bilateral, no accessory muscles used CVS: S1,S2,RRR GI: soft, tender, non distended Neuro: motor grossly intact, alert Psych: appropriate affect, appropriate insight Vital Signs: Vital Signs: Last Vital Signs Temp 97.5 F 06/15/25 07:07 Pulse 85 06/15/25 07:38 Resp 18 06/15/25 07:38 BP 172/82 H 06/15/25 07:07 Pulse Ox 94 06/15/25 07:07 O2 Del Method Room Air 06/15/25 07:07 BMI result Body Mass Index 35.1 Objective Data Active Medications Acetaminophen (Acetaminophen 325 Mg Tablet) 650 mg PO Q6H PRN PRN Reason: Pain, Mild 1-3,fever,headache Albuterol/Ipratropium (Albuterol/Iprat 2.5/0.5mg 3 Ml Ampul.Neb) 3 ml INHALE RQ4H WHILE AWAKE PRN PRN Reason: Shortness of Breath Albuterol/Ipratropium (Albuterol/Iprat 2.5/0.5mg 3 Ml Ampul.Neb) 3 ml INHALE RQ6H WHILE AWAKE [facility] Last Admin: 06/15/25 07:36 Dose: 3 ml Documented By: JOSE Calcium Carbonate (Calcium Carbonate 750 Mg Tab.Chew) 750 mg PO Q4H PRN PRN Reason: Heartburn Ceftriaxone Sodium (Ceftriaxone Sodium 1 Gm Vial) 1 gm IVPUSH Q24H [facility] Last Admin: 06/14/25 18:38 Dose: 1 gm Documented By: RUSTY Enoxaparin Sodium (Enoxaparin Sodium 40 Mg/0.4 Ml Syringe) 40 mg SUBCUT Q24H [facility] Last Admin: 06/14/25 18:09 Dose: 40 mg Documented By: RUSTY Hydromorphone HCl (Hydromorphone Hcl 0.5 Mg/0.5 Ml Syringe) 0.5 mg IVPUSH Q4H PRN; Protocol PRN Reason: Pain, Severe (Pain Scale 7-10) Lactated Ringer's (Lr) 1,000 mls @ 100 mls/hr IVCONT .Q10H [facility] Last Admin: 06/15/25 05:29 Dose: 100 mls/hr Documented By: MANJIT Metronidazole (Flagyl) 500 mg in 100 mls @ 100 mls/hr IV Q8H [facility] Last Infusion: 06/15/25 04:49 Dose: Infused Documented By: MANJIT Levothyroxine Sodium (Levothyroxine Sodium 50 Mcg Tablet) 50 mcg PO DAILY@0600 [facility] Last Admin: 06/15/25 05:54 Dose: 50 mcg Documented By: MANJIT Magnesium Hydroxide (Milk Of Magnesia 30 Ml Oral.Susp) 30 ml PO DAILY PRN PRN Reason: Constipation Melatonin (Melatonin 3 Mg Tablet) 6 mg PO BEDTIME PRN PRN Reason: Insomnia Last Admin: 06/14/25 20:59 Dose: 6 mg Documented By: LOPEZ Methylprednisolone Sodium Succinate (Methylprednisolone Sod Succ 40 Mg/Ml Vial) 40 mg IVPUSH Q8H [facility] Last Admin: 06/15/25 03:33 Dose: 40 mg Documented By: MANJIT Metoprolol Succinate (Metoprolol Succinate Er 50 Mg Tab.Er.24h) 50 mg PO DAILY [facility]; Protocol Last Admin: 06/15/25 07:36 Dose: 50 mg Documented By: MAXIMINO Ondansetron HCl (Ondansetron Hcl 4 Mg/2 Ml Vial) 4 mg IVPUSH Q8H PRN PRN Reason: Nausea and Vomiting Sertraline HCl (Sertraline Hcl 25 Mg Tablet) 25 mg PO DAILY@1800 [facility] Sodium Chloride (0.9 % Sodium Chloride Flush 3 Ml Syringe) 3 ml IVFLUSH QSHIFT [facility] Last Admin: 06/15/25 07:36 Dose: 3 ml Documented By: MAXIMINO Tramadol HCl (Tramadol Hcl 50 Mg Tablet) 50 mg PO Q6H PRN PRN Reason: Breakthrough Pain Labs 06/15/25 07:02 06/15/25 07:02 Labs: Laboratory Results - last 24 hr 06/14/25 06/14/25 06/14/25 10:53 11:34 12:38 MCV 89.0 MCH 30.2 MCHC 34.0 RDW 13.4 Plt Count 353 MPV 10.0 Immature Gran % (Auto) 0.7 H Neut % (Auto) 80.9 H Lymph % (Auto) 9.3 L [place] % (Auto) 8.2 Eos % (Auto) 0.7 Baso % (Auto) 0.2 Lymph # (Auto) 1.1 L [place] # (Auto) 1.0 Eos # (Auto) 0.1 Baso # (Auto) 0.0 Abs Immat Gran (auto) 0.08 H Absolute Neuts (auto) 9.9 H Absolute Nucleated RBC 0.000 Nucleated RBC % (auto) 0.0 Smear Tech's Comments Hold Purple Top Anion Gap 16 Estim Creat Clear Calc 31.1 Estimated GFR 36 Random Glucose 92 Lactic Acid 2.3 H* Lactic Acid F/U @ 2Hr Calcium 10.3 H D Total Bilirubin 1.2 H AST 26 ALT 10 Alkaline Phosphatase 96 Troponin I High Sens 6.6 Total Protein 7.6 Albumin 3.9 Triglycerides Cholesterol LDL Cholesterol, Calc HDL Cholesterol Lipase 700 H Urine Color Yellow Urine Appearance Clear Urine pH 7.5 Ur Specific [place] 1.010 Urine Protein 30 (1+) H Urine Glucose (UA) Negative Urine Ketones Negative Urine Blood Negative Urine Nitrite Negative Ur Leukocyte Esterase Negative Urine RBC 0-2 Urine WBC 0-5 Ur Squamous Epith Cells 6-10 Urine Bacteria None Seen Hyaline Casts 0-2 COVID-19 (PHOEBE) Negative COVID-19 Clin Com See Note Influenza Type A (ABISAI) Negative Influenza Type B (ABISAI) Negative Influenza A & B Note See Note 06/14/25 06/15/25 14:56 07:02 MCV 89.7 MCH 30.0 MCHC 33.4 RDW 13.4 Plt Count 317 MPV 10.4 Immature Gran % (Auto) 1.3 H Neut % (Auto) 91.1 H Lymph % (Auto) 4.1 L [place] % (Auto) 3.2 Eos % (Auto) 0.1 Baso % (Auto) 0.2 Lymph # (Auto) 0.7 L [place] # (Auto) 0.5 Eos # (Auto) 0.0 Baso # (Auto) 0.0 Abs Immat Gran (auto) 0.22 H Absolute Neuts (auto) 15.4 H Absolute Nucleated RBC 0.000 Nucleated RBC % (auto) 0.0 Smear Tech's Comments VERIFIED Hold Purple Top SEE NOTE Anion Gap 15 Estim Creat Clear Calc 35.4 Estimated GFR 42 Random Glucose 97 Lactic Acid Lactic Acid F/U @ 2Hr 1.7 Calcium 9.4 D Total Bilirubin 0.8 AST 25 ALT 8 Alkaline Phosphatase 87 Troponin I High Sens Total Protein 6.8 Albumin 3.5 Triglycerides 53 Cholesterol 105 LDL Cholesterol, Calc 62 HDL Cholesterol 33 L Lipase Urine Color Urine Appearance Urine pH Ur Specific [place] Urine Protein Urine Glucose (UA) Urine Ketones Urine Blood Urine Nitrite Ur Leukocyte Esterase Urine RBC Urine WBC Ur Squamous Epith Cells Urine Bacteria Hyaline Casts COVID-19 (PHOEBE) COVID-19 Clin Com Influenza Type A (ABISAI) Influenza Type B (ABISAI) Influenza A & B Note Assessment and Plan (1) Pancreatitis: Status: Acute Plan 84F PMH htn, hld, copd, CKD III, breast cancer, mood disorder, presented with abdominal pain acute pancretaitis vs duodenitis feeling better, advance diet gi eval empiric rocpehin flagyl ckd III stable copd with acute decompensation steroids, nebs hypothryoid synthroid htn metoprolol dvt prophylaxis- lovenox full code reason for continued hospitalization:still with abd pain, awaiting gi eval, toleration of po Quality Stroke Does the patient have a stroke diagnosis?: No VTE Prior VTE?: No VTE Risk Level:: Medical - moderate - high VTE Device Contraindication: Treatment Not Indicated VTE Drug Contraindication: N/A - Med Ordered
--- NOTE | 2025-06-15 14:35 | MHC.CM.PN ---
IMM GIVEN 06/15. THIS CM MET WITH PT, SHE STATES SHE LIVES AT HOME WITH HER SON, AND RECEIVES [facility]. PT'S DME INCLUDES: NEBULIZER, CANE, WALKER. PTS SON WILL TRANSPORT HER HOME AT DISCHARGE. EDUCATION PROVIDED ON HCP, PT COMPLETED A NEW ONE NAMING HER SON LGORIA, NEW HCP NOW ON FILE. PT STATES SHE WOULD LIKE NEW V[place] SERVICES [place]. DCP: HOME WITH NEW VNA SERVICES. PCP: IRINA HORTA
[2025-06-16] VITALS (11 sets, daily range): BP systolic 112–166; BP diastolic 57–94; PULSE 71–93; RESP 16–20; TEMP 35.8–36.9; O2SAT 93–97
[2025-06-16] MEDS: 0.9 % Sodium Chloride Flush 3 ML SYRINGE IVFLUSH ×2 (00:45→18:09)
[2025-06-16] MEDS: metroNIDAZOLE/NS 500 MG/100 ML PIGGYBACK 100 MG IV (02:10)
[2025-06-16] MEDS: Lactated Ringers 1,000 ML 100 ML IVCONT ×2 (03:56→15:26)
[2025-06-16 07:15] LABS: Hematocrit 40.2 % (37.0-47.0); Hemoglobin 13.1 g/dl (12.0-16.0); Mean Corpuscular HGB Conc 32.6 g/dl (31.0-35.0); Mean Corpuscular Hemoglobin 29.8 pg (27.0-33.0); Mean Corpuscular Volume 91.4 fL (80.0-98.0); NRBC Abs Auto 0.000 X10*3/uL (0.0-0.012); NRBC Pct Auto 0.0 /100WBC (0.0-0.2); Platelet Count 349 X10*3/uL (160-400); Red Blood Count 4.40 X10*6/uL (4.20-5.50); White Blood Count 21.7 X10*3/uL (4.8-10.8)
[2025-06-16 07:30] LABS: Alanine Aminotransferase 9 U/L (0-31); Albumin Level 3.4 g/dL (3.5-5.0); Alkaline Phosphatase 94 U/L (39-117); Anion Gap 14 (12-20); Aspartate Amino Transferase 24 U/L (5-31); Blood Urea Nitrogen 26 mg/dL (9-16); Calcium 9.5 mg/dL (8.4-10.2); Carbon Dioxide 24 mmol/L (22-29); Chloride 104 mmol/L (96-108); Creatinine Clr Calc Pharmacy 33.0; Estimated Glomerular Filt Rate 39; Magnesium 1.8 mg/dL (1.6-2.6); Potassium 3.5 mmol/L (3.3-5.1); Sodium 138 mmol/L (135-145); Total Protein 6.6 g/dL (6.5-8.0)
[2025-06-16] MEDS: Albuterol/Iprat 2.5/0.5MG 3 ML AMPUL.NEB INHALE ×3 (07:30→20:48)
[2025-06-16] MEDS: Metoprolol Succinate ER 50 MG TAB.ER.24H PO (08:10)
--- NOTE | 2025-06-16 09:05 | HO.PM.IMPN ---
Subjective Subjective Date of Service: 06/16/25 Interval History: still with pain and nausea Physical Exam Exam: Exam: General: AO X 3, no acute distress Resp: CTA bilateral, no accessory muscles used CVS: S1,S2,RRR GI: soft, tender, non distended Neuro: motor grossly intact, alert Psych: appropriate affect, appropriate insight Vital Signs: Vital Signs: Last Vital Signs Temp 97.9 F 06/16/25 07:10 Pulse 80 06/16/25 08:10 Resp 18 06/16/25 07:32 BP 166/94 H 06/16/25 08:10 Pulse Ox 93 06/16/25 07:10 O2 Del Method Room Air 06/16/25 07:10 BMI result Body Mass Index 35.1 Objective Data Active Medications Acetaminophen (Acetaminophen 325 Mg Tablet) 650 mg PO Q6H PRN PRN Reason: Pain, Mild 1-3,fever,headache Albuterol/Ipratropium (Albuterol/Iprat 2.5/0.5mg 3 Ml Ampul.Neb) 3 ml INHALE RQ4H WHILE AWAKE PRN PRN Reason: Shortness of Breath Albuterol/Ipratropium (Albuterol/Iprat 2.5/0.5mg 3 Ml Ampul.Neb) 3 ml INHALE RQ6H WHILE AWAKE [facility] Last Admin: 06/16/25 07:30 Dose: 3 ml Documented By: SHIN Lipase/Protease/Amylase (Lipase/Prot/Amylase 12/38/60k Capsule.Dr) 2 cap PO TIDWM [facility] Calcium Carbonate (Calcium Carbonate 750 Mg Tab.Chew) 750 mg PO Q4H PRN PRN Reason: Heartburn Enoxaparin Sodium (Enoxaparin Sodium 40 Mg/0.4 Ml Syringe) 40 mg SUBCUT Q24H [facility] Last Admin: 06/15/25 17:25 Dose: 40 mg Documented By: MAXIMINO Hydromorphone HCl (Hydromorphone Hcl 0.5 Mg/0.5 Ml Syringe) 0.5 mg IVPUSH Q4H PRN; Protocol PRN Reason: Pain, Severe (Pain Scale 7-10) Last Admin: 06/15/25 17:24 Dose: 0.5 mg Documented By: MAXIMINO Lactated Ringer's (Lr) 1,000 mls @ 100 mls/hr IVCONT .Q10H [facility] Last Admin: 06/16/25 03:56 Dose: 100 mls/hr Documented By: MANJIT Levothyroxine Sodium (Levothyroxine Sodium 50 Mcg Tablet) 50 mcg PO DAILY@0600 [facility] Last Admin: 06/16/25 06:14 Dose: 50 mcg Documented By: MANJIT Magnesium Hydroxide (Milk Of Magnesia 30 Ml Oral.Susp) 30 ml PO DAILY PRN PRN Reason: Constipation Melatonin (Melatonin 3 Mg Tablet) 6 mg PO BEDTIME PRN PRN Reason: Insomnia Last Admin: 06/14/25 20:59 Dose: 6 mg Documented By: LOPEZ Metoprolol Succinate (Metoprolol Succinate Er 50 Mg Tab.Er.24h) 50 mg PO DAILY [facility]; Protocol Last Admin: 06/16/25 08:10 Dose: 50 mg Documented By: BINDU Ondansetron HCl (Ondansetron Hcl 4 Mg/2 Ml Vial) 4 mg IVPUSH Q8H PRN PRN Reason: Nausea and Vomiting Last Admin: 06/16/25 08:13 Dose: 4 mg Documented By: BINDU Sertraline HCl (Sertraline Hcl 25 Mg Tablet) 25 mg PO DAILY@1800 [facility] Last Admin: 06/15/25 17:25 Dose: 25 mg Documented By: MAXIMINO Sodium Chloride (0.9 % Sodium Chloride Flush 3 Ml Syringe) 3 ml IVFLUSH QSHIFT [facility] Last Admin: 06/16/25 08:10 Dose: Not Given Documented By: BINDU Non-Admin Reason: IV Running Tramadol HCl (Tramadol Hcl 50 Mg Tablet) 50 mg PO Q6H PRN PRN Reason: Breakthrough Pain Labs 06/16/25 06:27 06/16/25 06:27 Labs: Laboratory Results - last 24 hr 06/16/25 06:27 MCV 91.4 MCH 29.8 MCHC 32.6 RDW 13.4 Plt Count 349 MPV 10.7 Absolute Nucleated RBC 0.000 Nucleated RBC % (auto) 0.0 Anion Gap 14 Estim Creat Clear Calc 33.0 Estimated GFR 39 Random Glucose 107 Calcium 9.5 Magnesium 1.8 Total Bilirubin 0.5 Direct Bilirubin 0.3 AST 24 ALT 9 Alkaline Phosphatase 94 Total Protein 6.6 Albumin 3.4 L Microbiology Microbiology Results: Microbiology 06/14/25 19:02 Blood Culture - Preliminary Blood - Venous No growth after 24 hours. 06/14/25 18:31 Blood Culture - Preliminary Blood - Venous No growth after 24 hours. 06/14/25 12:38 Blood Culture - Preliminary Blood - Venous No growth after 24 hours. 06/14/25 12:38 Blood Culture - Preliminary Blood - Venous No growth after 24 hours. Assessment and Plan (1) Pancreatitis: Status: Acute Plan 84F PMH htn, hld, copd, CKD III, breast cancer, mood disorder, presented with abdominal pain acute recurrent abdominal pain due to pancretaitis vs duodenitis pancreatitis due to gallstone vs duodenal diverticula advanced diet gi and surgery following does not appear infectious dc rocephin, flagyl ckd III stable copd with acute decompensation improved, dc steroids, continue nebs hypothryoid synthroid htn metoprolol dvt prophylaxis- lovenox full code reason for continued hospitalization:still with abd pain, toleration of po Quality Stroke Does the patient have a stroke diagnosis?: No VTE Prior VTE?: No VTE Risk Level:: Medical - moderate - high VTE Device Contraindication: Treatment Not Indicated VTE Drug Contraindication: N/A - Med Ordered
--- NOTE | 2025-06-16 10:29 | MHC.CM.PN ---
Per ROUNDS discussion, Patient is not yet medically cleared for dc (abdominal pain, nausea, not yet tolerating PO); home with new VNA is the goal and CM will continue to follow.
--- NOTE | 2025-06-16 10:39 | P.PNGS_ITS ---
Subjective Subjective Date of Service: 06/16/25 Interval history: Worsening nausea and pain this morning. [place] improved yesterday. Reports she has had multiple loose stools which is worsening her pain. Continues to complain and is perseverating about her chronic issues such as daily nausea and her alternation between constipation and diarrhea at home. Physical Exam 2 Vital Signs: Vital Signs: Last Vital Signs Temp 97.9 F 06/16/25 07:10 Pulse 80 06/16/25 08:10 Resp 18 06/16/25 07:32 BP 166/94 H 06/16/25 08:10 Pulse Ox 93 06/16/25 07:10 O2 Del Method Room Air 06/16/25 07:10 BMI result Body Mass Index 35.1 Const: General: comfortable and no acute distress O rientation/consciousness: patient oriented x3 Resp: Other: slight increased work of breathing Effort & Inspection: able to speak in complete sentences GI: Other: markedly corpulent abdomen soft tender in upper abdomen, no guarding or rebound or rigidity Skin: General skin exam: no rashes or lesions noted and no jaundice Neuro: General: patient oriented x3 and moves all extremities Objective Data Active Medications Acetaminophen (Acetaminophen 325 Mg Tablet) 650 mg PO Q6H PRN PRN Reason: Pain, Mild 1-3,fever,headache Albuterol/Ipratropium (Albuterol/Iprat 2.5/0.5mg 3 Ml Ampul.Neb) 3 ml INHALE RQ4H WHILE AWAKE PRN PRN Reason: Shortness of Breath Albuterol/Ipratropium (Albuterol/Iprat 2.5/0.5mg 3 Ml Ampul.Neb) 3 ml INHALE RQ6H WHILE AWAKE [facility] Last Admin: 06/16/25 07:30 Dose: 3 ml Documented By: SHIN Lipase/Protease/Amylase (Lipase/Prot/Amylase //60k Capsule.Dr) 2 cap PO TIDWM [facility] Calcium Carbonate (Calcium Carbonate 750 Mg Tab.Chew) 750 mg PO Q4H PRN PRN Reason: Heartburn Enoxaparin Sodium (Enoxaparin Sodium 40 Mg/0.4 Ml Syringe) 40 mg SUBCUT Q24H [facility] Last Admin: 06/15/25 17:25 Dose: 40 mg Documented By: MAXIMINO Hydromorphone HCl (Hydromorphone Hcl 0.5 Mg/0.5 Ml Syringe) 0.5 mg IVPUSH Q4H PRN; Protocol PRN Reason: Pain, Severe (Pain Scale 7-10) Last Admin: 06/15/25 17:24 Dose: 0.5 mg Documented By: MAXIMINO Lactated Ringer's (Lr) 1,000 mls @ 100 mls/hr IVCONT .Q10H [facility] Last Admin: 06/16/25 03:56 Dose: 100 mls/hr Documented By: MANJIT Levothyroxine Sodium (Levothyroxine Sodium 50 Mcg Tablet) 50 mcg PO DAILY@0600 [facility] Last Admin: 06/16/25 06:14 Dose: 50 mcg Documented By: MANJIT Magnesium Hydroxide (Milk Of Magnesia 30 Ml Oral.Susp) 30 ml PO DAILY PRN PRN Reason: Constipation Melatonin (Melatonin 3 Mg Tablet) 6 mg PO BEDTIME PRN PRN Reason: Insomnia Last Admin: 06/14/25 20:59 Dose: 6 mg Documented By: LOPEZ Metoprolol Succinate (Metoprolol Succinate Er 50 Mg Tab.Er.24h) 50 mg PO DAILY [facility]; Protocol Last Admin: 06/16/25 08:10 Dose: 50 mg Documented By: BINDU Ondansetron HCl (Ondansetron Hcl 4 Mg/2 Ml Vial) 4 mg IVPUSH Q8H PRN PRN Reason: Nausea and Vomiting Last Admin: 06/16/25 08:13 Dose: 4 mg Documented By: BINDU Sertraline HCl (Sertraline Hcl 25 Mg Tablet) 25 mg PO DAILY@1800 [facility] Last Admin: 06/15/25 17:25 Dose: 25 mg Documented By: MAXIMINO Sodium Chloride (0.9 % Sodium Chloride Flush 3 Ml Syringe) 3 ml IVFLUSH QSHIFT [facility] Last Admin: 06/16/25 08:10 Dose: Not Given Documented By: BINDU Non-Admin Reason: IV Running Tramadol HCl (Tramadol Hcl 50 Mg Tablet) 50 mg PO Q6H PRN PRN Reason: Breakthrough Pain Labs 06/16/25 06:27 06/16/25 06:27 Labs: Laboratory Results - last 24 hr 06/16/25 06:27 MCV 91.4 MCH 29.8 MCHC 32.6 RDW 13.4 Plt Count 349 MPV 10.7 Absolute Nucleated RBC 0.000 Nucleated RBC % (auto) 0.0 Anion Gap 14 Estim Creat Clear Calc 33.0 Estimated GFR 39 Random Glucose 107 Calcium 9.5 Magnesium 1.8 Total Bilirubin 0.5 Direct Bilirubin 0.3 AST 24 ALT 9 Alkaline Phosphatase 94 Total Protein 6.6 Albumin 3.4 L Microbiology Microbiology Results: Microbiology 06/14/25 19:02 Blood Culture - Preliminary Blood - Venous No growth after 24 hours. 06/14/25 18:31 Blood Culture - Preliminary Blood - Venous No growth after 24 hours. 06/14/25 12:38 Blood Culture - Preliminary Blood - Venous No growth after 24 hours. 06/14/25 12:38 Blood Culture - Preliminary Blood - Venous No growth after 24 hours. Procedures Date of Service Date of Service: 06/16/25 Progress Note: A&P Assessment and plan (1) Pancreatitis: Status: Acute Plan Unclear if her symptoms are worsening due to her chronic issues or current pancreatitis. Her abdomen remains benign without peritoneal signs, mildly tender in epigastric region. Discussed deescalating diet if it is worsening her nausea, abd pain. She continues to perseverate about her difficulty managing her life with her alternation between constipation and diarrhea for the past 7 years as this affects her quality of life. Recommend asking GI to further weigh in while she remains inpatient. No current surgical intervention warranted. Time Spent With Patient Time: Total time managing care of this patient today ____ minutes. Quality Stroke Does the patient have a stroke diagnosis?: No VTE Prior VTE?: No VTE Risk Level:: Medical - moderate - high VTE Device Contraindication: Treatment Not Indicated VTE Drug Contraindication: N/A - Med Ordered
[2025-06-16] MEDS: Lipase/Prot/Amylase 12/38/60K CAPSULE.DR 2 CAP PO ×2 (13:42→18:09)
[2025-06-17] VITALS (7 sets, daily range): BP systolic 116–150; BP diastolic 67–74; PULSE 70–75; RESP 17–20; TEMP 36–36.9; O2SAT 93–97
[2025-06-17 06:32] LABS: Hematocrit 38.3 % (37.0-47.0); Hemoglobin 12.4 g/dl (12.0-16.0); Mean Corpuscular HGB Conc 32.4 g/dl (31.0-35.0); Mean Corpuscular Hemoglobin 29.6 pg (27.0-33.0); Mean Corpuscular Volume 91.4 fL (80.0-98.0); NRBC Abs Auto 0.000 X10*3/uL (0.0-0.012); NRBC Pct Auto 0.0 /100WBC (0.0-0.2); Platelet Count 237 X10*3/uL (160-400); Red Blood Count 4.19 X10*6/uL (4.20-5.50); White Blood Count 15.8 X10*3/uL (4.8-10.8)
[2025-06-17 06:46] LABS: Alanine Aminotransferase 6 U/L (0-31); Albumin Level 2.8 g/dL (3.5-5.0); Alkaline Phosphatase 74 U/L (39-117); Anion Gap 11 (12-20); Aspartate Amino Transferase 18 U/L (5-31); Blood Urea Nitrogen 24 mg/dL (9-16); Calcium 8.8 mg/dL (8.4-10.2); Carbon Dioxide 25 mmol/L (22-29); Chloride 106 mmol/L (96-108); Creatinine Clr Calc Pharmacy 34.3; Estimated Glomerular Filt Rate 41; Iron 40 mcg/dL (30-160); Magnesium 1.8 mg/dL (1.6-2.6); Percent Iron Saturation 22 % (15-50); Potassium 3.6 mmol/L (3.3-5.1); Sodium 138 mmol/L (135-145); Total Iron Binding Capacity 179 mcg/dL (228-428); Total Protein 5.7 g/dL (6.5-8.0); Unsaturated Iron Binding 139 ug/dL
[2025-06-17] MEDS: Lipase/Prot/Amylase 12/38/60K CAPSULE.DR 2 CAP PO ×3 (07:51→17:35)
[2025-06-17] MEDS: Metoprolol Succinate ER 50 MG TAB.ER.24H PO (07:51)
[2025-06-17] MEDS: 0.9 % Sodium Chloride Flush 3 ML SYRINGE IVFLUSH ×3 (07:54→23:50)
[2025-06-17] MEDS: Albuterol/Iprat 2.5/0.5MG 3 ML AMPUL.NEB INHALE ×3 (08:19→20:10)
--- NOTE | 2025-06-17 09:24 | P.PNIM_ITS ---
Subjective Subjective Date of Service: 06/17/25 Interval History: still with pain and nausea Physical Exam 2 Vital Signs: Vital Signs: Last Vital Signs Temp 97.1 F 06/17/25 07:00 Pulse 74 06/17/25 08:20 Resp 18 06/17/25 08:20 BP 147/74 H 06/17/25 07:00 Pulse Ox 93 06/17/25 07:00 O2 Del Method Room Air 06/17/25 07:00 BMI result Body Mass Index 35.1 Const: General: comfortable and no acute distress O rientation/consciousness: patient oriented x3 Resp: Other: slight increased work of breathing Effort & Inspection: able to speak in complete sentences GI: Other: markedly corpulent abdomen soft tender in upper abdomen, no guarding or rebound or rigidity Skin: General skin exam: no rashes or lesions noted and no jaundice Neuro: General: patient oriented x3 and moves all extremities Objective Data Active Medications Acetaminophen (Acetaminophen 325 Mg Tablet) 650 mg PO Q6H PRN PRN Reason: Pain, Mild 1-3,fever,headache Albuterol/Ipratropium (Albuterol/Iprat 2.5/0.5mg 3 Ml Ampul.Neb) 3 ml INHALE RQ4H WHILE AWAKE PRN PRN Reason: Shortness of Breath Albuterol/Ipratropium (Albuterol/Iprat 2.5/0.5mg 3 Ml Ampul.Neb) 3 ml INHALE RQ6H WHILE AWAKE [facility] Last Admin: 06/17/25 08:19 Dose: 3 ml Documented By: GIOVANY Lipase/Protease/Amylase (Lipase/Prot/Amylase 12/38/60k Capsule.Dr) 2 cap PO TIDWM [facility] Last Admin: 06/17/25 07:51 Dose: 2 cap Documented By: KIRTI Calcium Carbonate (Calcium Carbonate 750 Mg Tab.Chew) 750 mg PO Q4H PRN PRN Reason: Heartburn Last Admin: 06/16/25 13:42 Dose: 750 mg Documented By: BINDU Enoxaparin Sodium (Enoxaparin Sodium 40 Mg/0.4 Ml Syringe) 40 mg SUBCUT Q24H [facility] Last Admin: 06/16/25 18:10 Dose: 40 mg Documented By: BINDU Hydromorphone HCl (Hydromorphone Hcl 0.5 Mg/0.5 Ml Syringe) 0.5 mg IVPUSH Q4H PRN; Protocol PRN Reason: Pain, Severe (Pain Scale 7-10) Last Admin: 06/16/25 23:39 Dose: 0.5 mg Documented By: BLANQUITA Levothyroxine Sodium (Levothyroxine Sodium 50 Mcg Tablet) 50 mcg PO DAILY@0600 [facility] Last Admin: 06/17/25 06:40 Dose: 50 mcg Documented By: BLANQUITA Magnesium Hydroxide (Milk Of Magnesia 30 Ml Oral.Susp) 30 ml PO DAILY PRN PRN Reason: Constipation Melatonin (Melatonin 3 Mg Tablet) 6 mg PO BEDTIME PRN PRN Reason: Insomnia Last Admin: 06/16/25 21:09 Dose: 6 mg Documented By: BLANQUITA Metoclopramide HCl (Metoclopramide Hcl 10 Mg/2 Ml Vial) 5 mg IVPUSH Q6H PRN PRN Reason: Nausea and Vomiting Last Admin: 06/16/25 18:10 Dose: 5 mg Documented By: BIDNU Metoprolol Succinate (Metoprolol Succinate Er 50 Mg Tab.Er.24h) 50 mg PO DAILY [facility]; Protocol Last Admin: 06/17/25 07:51 Dose: 50 mg Documented By: KIRTI Ondansetron HCl (Ondansetron Hcl 4 Mg/2 Ml Vial) 4 mg IVPUSH Q8H PRN PRN Reason: Nausea and Vomiting Last Admin: 06/17/25 07:50 Dose: 4 mg Documented By: KIRTI Sertraline HCl (Sertraline Hcl 25 Mg Tablet) 25 mg PO DAILY@1800 [facility] Last Admin: 06/16/25 18:09 Dose: 25 mg Documented By: BINDU Sodium Chloride (0.9 % Sodium Chloride Flush 3 Ml Syringe) 3 ml IVFLUSH QSHIFT [facility] Last Admin: 06/17/25 07:54 Dose: 3 ml Documented By: KIRTI Tramadol HCl (Tramadol Hcl 50 Mg Tablet) 50 mg PO Q6H PRN PRN Reason: Breakthrough Pain Last Admin: 06/16/25 21:16 Dose: 50 mg Documented By: BLANQUITA Labs 06/17/25 06:19 06/17/25 06:19 Labs: Laboratory Results - last 24 hr 06/17/25 06:19 MCV 91.4 MCH 29.6 MCHC 32.4 RDW 13.7 Plt Count 237 D MPV 10.4 Absolute Nucleated RBC 0.000 Nucleated RBC % (auto) 0.0 Anion Gap 11 L Estim Creat Clear Calc 34.3 Estimated GFR 41 Random Glucose 79 Calcium 8.8 D Magnesium 1.8 Iron 40 TIBC 179 L % Saturation 22 Unsat Iron Binding 139 Total Bilirubin 0.5 Direct Bilirubin 0.3 AST 18 ALT 6 Alkaline Phosphatase 74 Total Protein 5.7 L Albumin 2.8 L Microbiology Microbiology Results: Microbiology 06/14/25 19:02 Blood Culture - Preliminary Blood - Venous No growth after 48 hours. 06/14/25 18:31 Blood Culture - Preliminary Blood - Venous No growth after 48 hours. 06/14/25 12:38 Blood Culture - Preliminary Blood - Venous No growth after 48 hours. 06/14/25 12:38 Blood Culture - Preliminary Blood - Venous No growth after 48 hours. Assessment and Plan (1) Pancreatitis: Status: Acute Plan 84F PMH htn, hld, copd, CKD III, breast cancer, mood disorder, presented with abdominal pain acute recurrent abdominal pain due to pancretaitis vs duodenitis pancreatitis due to gallstone vs duodenal diverticula advancing diet gi and surgery following does not appear infectious dced rocephin, flagyl started creon ckd III stable copd with acute decompensation improved, changed to po prednisone, continue nebs hypothryoid synthroid htn metoprolol dvt prophylaxis- lovenox full code reason for continued hospitalization:still with abd pain, toleration of po Quality Stroke Does the patient have a stroke diagnosis?: No VTE Prior VTE?: No VTE Risk Level:: Medical - moderate - high VTE Device Contraindication: Treatment Not Indicated VTE Drug Contraindication: N/A - Med Ordered
[2025-06-18] VITALS (12 sets, daily range): BP systolic 127–161; BP diastolic 62–75; PULSE 71–86; RESP 16–20; TEMP 36.3–36.9; O2SAT 92–98
[2025-06-18] MEDS: 0.9 % Sodium Chloride Flush 3 ML SYRINGE IVFLUSH ×3 (08:19→23:33)
[2025-06-18] MEDS: Metoprolol Succinate ER 50 MG TAB.ER.24H PO (08:20)
[2025-06-18] MEDS: Lipase/Prot/Amylase 12/38/60K CAPSULE.DR 2 CAP PO ×3 (08:20→16:45)
[2025-06-18] MEDS: Albuterol/Iprat 2.5/0.5MG 3 ML AMPUL.NEB INHALE ×3 (08:35→20:35)
--- NOTE | 2025-06-18 11:43 | HE.CSO ---
Per ROUNDS discussion, Patient is not yet medically cleared for dc (pain & Nausea); home with services is the goal and CM will continue to follow.
[2025-06-18 13:33] LABS: Immunoglobulin G Subclass 1 531 mg/dL (382-929); Immunoglobulin G Subclass 2 236 mg/dL (241-700); Immunoglobulin G Subclass 3 42 mg/dL (22-178); Immunoglobulin G Subclass 4 37.9 mg/dL (4-86); Immunoglobulin G Total 913 mg/dL (600-1540)
--- NOTE | 2025-06-18 14:52 | HO.PM.IMPN ---
Subjective Subjective Date of Service: 06/18/25 Interval History: Continues with vague diffuse lower abdominal pain. Also complains of nausea Review of Systems Denies chest pain Denies shortness of breath Denies vomiting but admits to nausea Denies fever chills Physical Exam Vital Signs: Vital Signs: Last Vital Signs Temp 98.0 F 06/18/25 10:59 Pulse 72 06/18/25 10:59 Resp 18 06/18/25 10:59 BP 131/71 06/18/25 10:59 Pulse Ox 96 06/18/25 10:59 O2 Del Method Room Air 06/18/25 10:59 BMI result Body Mass Index 35.1 Const: Other: Awake alert no acute distress Resp: Other: Clear to auscultation bilaterally no rales rhonchi or wheezes Cardio: Other: No S4; positive S1-S2; no S3 murmurs rubs or gallops GI: Other: Soft diffusely tender across lower abdomen. No rebound. Quiet bowel sounds Extrem: Other: No edema bilaterally Objective Data Active Medications Acetaminophen (Acetaminophen 325 Mg Tablet) 650 mg PO Q6H PRN PRN Reason: Pain, Mild 1-3,fever,headache Albuterol/Ipratropium (Albuterol/Iprat 2.5/0.5mg 3 Ml Ampul.Neb) 3 ml INHALE RQ4H WHILE AWAKE PRN PRN Reason: Shortness of Breath Albuterol/Ipratropium (Albuterol/Iprat 2.5/0.5mg 3 Ml Ampul.Neb) 3 ml INHALE RQ6H WHILE AWAKE [facility] Last Admin: 06/18/25 08:35 Dose: 3 ml Documented By: GIOVANY Lipase/Protease/Amylase (Lipase/Prot/Amylase 12/38/60k Capsule.Dr) 2 cap PO TIDWM [facility] Last Admin: 06/18/25 11:46 Dose: 2 cap Documented By: MALDONAlonso Calcium Carbonate (Calcium Carbonate 750 Mg Tab.Chew) 750 mg PO Q4H PRN PRN Reason: Heartburn Last Admin: 06/16/25 13:42 Dose: 750 mg Documented By: BINDU Enoxaparin Sodium (Enoxaparin Sodium 40 Mg/0.4 Ml Syringe) 40 mg SUBCUT Q24H [facility] Last Admin: 06/17/25 17:35 Dose: 40 mg Documented By: STANLEY Hydromorphone HCl (Hydromorphone Hcl 0.5 Mg/0.5 Ml Syringe) 0.5 mg IVPUSH Q4H PRN; Protocol PRN Reason: Pain, Severe (Pain Scale 7-10) Last Admin: 06/16/25 23:39 Dose: 0.5 mg Documented By: BLANQUITA Levothyroxine Sodium (Levothyroxine Sodium 50 Mcg Tablet) 50 mcg PO DAILY@0600 [facility] Last Admin: 06/18/25 06:29 Dose: 50 mcg Documented By: MANJIT Magnesium Hydroxide (Milk Of Magnesia 30 Ml Oral.Susp) 30 ml PO DAILY PRN PRN Reason: Constipation Melatonin (Melatonin 3 Mg Tablet) 6 mg PO BEDTIME PRN PRN Reason: Insomnia Last Admin: 06/17/25 23:49 Dose: 6 mg Documented By: MANJIT Metoclopramide HCl (Metoclopramide Hcl 10 Mg/2 Ml Vial) 5 mg IVPUSH Q6H PRN PRN Reason: Nausea and Vomiting Last Admin: 06/16/25 18:10 Dose: 5 mg Documented By: BINDU Metoprolol Succinate (Metoprolol Succinate Er 50 Mg Tab.Er.24h) 50 mg PO DAILY [facility]; Protocol Last Admin: 06/18/25 08:20 Dose: 50 mg Documented By: MILDRED Ondansetron HCl (Ondansetron Hcl 4 Mg/2 Ml Vial) 4 mg IVPUSH Q8H PRN PRN Reason: Nausea and Vomiting Last Admin: 06/18/25 08:24 Dose: 4 mg Documented By: MILDRED Prednisone (Prednisone 20 Mg Tablet) 40 mg PO DAILY [facility] Last Admin: 06/18/25 08:19 Dose: 40 mg Documented By: MILDRED Sertraline HCl (Sertraline Hcl 25 Mg Tablet) 25 mg PO DAILY@1800 [facility] Last Admin: 06/17/25 17:36 Dose: 25 mg Documented By: STANLEY Sodium Chloride (0.9 % Sodium Chloride Flush 3 Ml Syringe) 3 ml IVFLUSH QSHIFT [facility] Last Admin: 06/18/25 08:19 Dose: 3 ml Documented By: MILDRED Tramadol HCl (Tramadol Hcl 50 Mg Tablet) 50 mg PO Q6H PRN PRN Reason: Breakthrough Pain Last Admin: 06/16/25 21:16 Dose: 50 mg Documented By: BLANQUITA Labs 06/17/25 06:19 06/17/25 06:19 Labs: Laboratory Results - last 24 hr 06/17/25 06:19 IgG Total 913 IgG Subclass 1 531 IgG Subclass 2 236 L IgG Subclass 3 42 IgG Subclass 4 37.9 Assessment and Plan (1) Pancreatitis: Status: Acute (2) Nausea and vomiting: Status: Acute (3) Hypertension: Status: Acute Plan 84F PMH htn, hld, copd, CKD III, breast cancer, mood disorder, presented with abdominal pain 1.Acute recurrent abdominal pain due to pancretaitis vs duodenitis -Recheck lipase in a.m. -advancing diet -gi and surgery following -started creon 2.CKD III -at baseline -at follow renal/divalent 3.COPD -switch to p.o. prednisone -continued DuoNebs q.4 hours while awake -currently no O2 requirement 4. Hypertension -well control on current therapies -adjust as indicated Lovenox Full code reason for continued hospitalization:still with abd pain, toleration of po Quality Stroke Does the patient have a stroke diagnosis?: No VTE Prior VTE?: No VTE Risk Level:: Medical - moderate - high VTE Device Contraindication: Treatment Not Indicated VTE Drug Contraindication: N/A - Med Ordered
[2025-06-18] MEDS: Milk of Magnesia 30 ML ORAL.SUSP PO (23:34)
[2025-06-19] VITALS (10 sets, daily range): BP systolic 108–142; BP diastolic 55–71; PULSE 67–91; RESP 16–20; TEMP 36.1–36.9; O2SAT 92–97
[2025-06-19 06:34] LABS: MANUAL DIFF FLAG NO
[2025-06-19 06:40] LABS: Hematocrit 34.4 % (37.0-47.0); Hemoglobin 11.6 g/dl (12.0-16.0); Imm Gran Abs Auto 0.33 X10*3/uL (0.00-0.03); Imm Gran Pct Auto 2.5 % (0.0-0.4); Lymphocytes Absolute Auto 1.5 X10*3/uL (1.2-4.9); Mean Corpuscular HGB Conc 33.7 g/dl (31.0-35.0); Mean Corpuscular Hemoglobin 29.9 pg (27.0-33.0); Mean Corpuscular Volume 88.7 fL (80.0-98.0); NRBC Abs Auto 0.000 X10*3/uL (0.0-0.012); NRBC Pct Auto 0.0 /100WBC (0.0-0.2); Platelet Count 262 X10*3/uL (160-400); Red Blood Count 3.88 X10*6/uL (4.20-5.50); White Blood Count 13.3 X10*3/uL (4.8-10.8)
[2025-06-19 06:55] LABS: Alanine Aminotransferase 7 U/L (0-31); Albumin Level 2.9 g/dL (3.5-5.0); Alkaline Phosphatase 68 U/L (39-117); Anion Gap 10 (12-20); Aspartate Amino Transferase 18 U/L (5-31); Blood Urea Nitrogen 26 mg/dL (9-16); Calcium 9.0 mg/dL (8.4-10.2); Carbon Dioxide 26 mmol/L (22-29); Chloride 107 mmol/L (96-108); Creatinine Clr Calc Pharmacy 33.5; Estimated Glomerular Filt Rate 40; Lipase 24 U/L (8-78); Potassium 3.7 mmol/L (3.3-5.1); Sodium 139 mmol/L (135-145); Total Protein 5.7 g/dL (6.5-8.0)
[2025-06-19] MEDS: Albuterol/Iprat 2.5/0.5MG 3 ML AMPUL.NEB INHALE ×3 (07:53→20:05)
[2025-06-19] MEDS: Lipase/Prot/Amylase 12/38/60K CAPSULE.DR 2 CAP PO ×3 (08:42→17:04)
[2025-06-19] MEDS: Metoprolol Succinate ER 50 MG TAB.ER.24H PO (08:42)
[2025-06-19] MEDS: 0.9 % Sodium Chloride Flush 3 ML SYRINGE IVFLUSH (08:43)
--- NOTE | 2025-06-19 13:24 | HO.PM.IMPN ---
Subjective Subjective Date of Service: 06/19/25 Interval History: Much brighter today. States appetite is improving and bowels are beginning to move Review of Systems Denies chest pain Denies shortness of breath Denies vomiting but admits to nausea Denies fever chills Physical Exam Vital Signs: Vital Signs: Last Vital Signs Temp 97.4 F 06/19/25 11:16 Pulse 67 06/19/25 11:16 Resp 18 06/19/25 11:16 BP 114/56 L 06/19/25 11:16 Pulse Ox 96 06/19/25 11:16 O2 Del Method Room Air 06/19/25 11:16 BMI result Body Mass Index 35.1 Const: Other: Awake alert no acute distress Resp: Other: Clear to auscultation bilaterally no rales rhonchi or wheezes Cardio: Other: No S4; positive S1-S2; no S3 murmurs rubs or gallops GI: Other: Soft diffusely tender across lower abdomen. No rebound. Quiet bowel sounds Extrem: Other: No edema bilaterally Objective Data Active Medications Acetaminophen (Acetaminophen 325 Mg Tablet) 650 mg PO Q6H PRN PRN Reason: Pain, Mild 1-3,fever,headache Albuterol/Ipratropium (Albuterol/Iprat 2.5/0.5mg 3 Ml Ampul.Neb) 3 ml INHALE RQ4H WHILE AWAKE PRN PRN Reason: Shortness of Breath Albuterol/Ipratropium (Albuterol/Iprat 2.5/0.5mg 3 Ml Ampul.Neb) 3 ml INHALE RQ6H WHILE AWAKE [facility] Last Admin: 06/19/25 07:53 Dose: 3 ml Documented By: GIOVANY Lipase/Protease/Amylase (Lipase/Prot/Amylase 12/38/60k Capsule.Dr) 2 cap PO TIDWM [facility] Last Admin: 06/19/25 11:23 Dose: 2 cap Documented By: MAXIMINO Calcium Carbonate (Calcium Carbonate 750 Mg Tab.Chew) 750 mg PO Q4H PRN PRN Reason: Heartburn Last Admin: 06/16/25 13:42 Dose: 750 mg Documented By: BINDU Enoxaparin Sodium (Enoxaparin Sodium 40 Mg/0.4 Ml Syringe) 40 mg SUBCUT Q24H [facility] Last Admin: 06/18/25 17:44 Dose: 40 mg Documented By: MILDRED Hydromorphone HCl (Hydromorphone Hcl 0.5 Mg/0.5 Ml Syringe) 0.5 mg IVPUSH Q4H PRN; Protocol PRN Reason: Pain, Severe (Pain Scale 7-10) Last Admin: 06/18/25 23:33 Dose: 0.5 mg Documented By: LOPEZ Levothyroxine Sodium (Levothyroxine Sodium 50 Mcg Tablet) 50 mcg PO DAILY@0600 [facility] Last Admin: 06/19/25 06:21 Dose: 50 mcg Documented By: MANJIT Magnesium Hydroxide (Milk Of Magnesia 30 Ml Oral.Susp) 30 ml PO DAILY PRN PRN Reason: Constipation Last Admin: 06/18/25 23:34 Dose: 30 ml Documented By: LOPEZ Melatonin (Melatonin 3 Mg Tablet) 6 mg PO BEDTIME PRN PRN Reason: Insomnia Last Admin: 06/18/25 23:34 Dose: 6 mg Documented By: LOPEZ Metoclopramide HCl (Metoclopramide Hcl 10 Mg/2 Ml Vial) 5 mg IVPUSH Q6H PRN PRN Reason: Nausea and Vomiting Last Admin: 06/16/25 18:10 Dose: 5 mg Documented By: BINDU Metoprolol Succinate (Metoprolol Succinate Er 50 Mg Tab.Er.24h) 50 mg PO DAILY [facility]; Protocol Last Admin: 06/19/25 08:42 Dose: 50 mg Documented By: MAXIMINO Ondansetron HCl (Ondansetron Hcl 4 Mg/2 Ml Vial) 4 mg IVPUSH Q8H PRN PRN Reason: Nausea and Vomiting Last Admin: 06/18/25 08:24 Dose: 4 mg Documented By: MILDRED Prednisone (Prednisone 20 Mg Tablet) 40 mg PO DAILY [facility] Last Admin: 06/19/25 08:42 Dose: 40 mg Documented By: MAXIMINO Sertraline HCl (Sertraline Hcl 25 Mg Tablet) 25 mg PO DAILY@1800 [facility] Last Admin: 06/18/25 17:44 Dose: 25 mg Documented By: MILDRED Sodium Chloride (0.9 % Sodium Chloride Flush 3 Ml Syringe) 3 ml IVFLUSH QSHIFT [facility] Last Admin: 06/19/25 08:43 Dose: 3 ml Documented By: MAXIMINO Tramadol HCl (Tramadol Hcl 50 Mg Tablet) 50 mg PO Q6H PRN PRN Reason: Breakthrough Pain Last Admin: 06/19/25 02:41 Dose: 50 mg Documented By: MANJIT Labs 06/19/25 06:20 06/19/25 06:20 Labs: Laboratory Results - last 24 hr 06/17/25 06/19/25 06:19 06:20 MCV 88.7 MCH 29.9 MCHC 33.7 RDW 13.5 Plt Count 262 MPV 10.5 Immature Gran % (Auto) 2.5 H Neut % (Auto) 78.7 H Lymph % (Auto) 11.0 L [place] % (Auto) 7.4 Eos % (Auto) 0.1 Baso % (Auto) 0.3 Lymph # (Auto) 1.5 [place] # (Auto) 1.0 Eos # (Auto) 0.0 Baso # (Auto) 0.0 Abs Immat Gran (auto) 0.33 H Absolute Neuts (auto) 10.5 H Absolute Nucleated RBC 0.000 Nucleated RBC % (auto) 0.0 Anion Gap 10 L Estim Creat Clear Calc 33.5 Estimated GFR 40 Fasting Glucose 100 H Calcium 9.0 Total Bilirubin 0.3 AST 18 ALT 7 Alkaline Phosphatase 68 Total Protein 5.7 L Albumin 2.9 L Lipase 24 IgG Total 913 IgG Subclass 1 531 IgG Subclass 2 236 L IgG Subclass 3 42 IgG Subclass 4 37.9 Assessment and Plan (1) Pancreatitis: Status: Acute (2) CKD (chronic kidney disease): Status: Acute Plan 84F PMH htn, hld, copd, CKD III, breast cancer, mood disorder, presented with abdominal pain 1.Acute recurrent abdominal pain due to pancretaitis vs duodenitis -lipase flat -advancing diet without issue -continue creon -PT evaluation 2.CKD III -at baseline -at follow renal/divalent 3.COPD -switch to p.o. prednisone -continued DuoNebs q.4 hours while awake -currently no O2 requirement 4. Hypertension -well control on current therapies -adjust as indicated Lovenox Full code reason for continued hospitalization:still with abd pain, toleration of po Quality Stroke Does the patient have a stroke diagnosis?: No VTE Prior VTE?: No VTE Risk Level:: Medical - moderate - high VTE Device Contraindication: Treatment Not Indicated VTE Drug Contraindication: N/A - Med Ordered
[2025-06-19] MEDS: traZODone HCL 25 MG HALFTAB 12.5 MG PO (23:08)
[2025-06-20 03:43] VITALS: BP 154/79; PULSE 72; RESP 18; TEMP 36.3; O2SAT 95
[2025-06-20 07:02] VITALS: BP 143/61; PULSE 77; RESP 18; TEMP 36.3; O2SAT 97
[2025-06-20] MEDS: Albuterol/Iprat 2.5/0.5MG 3 ML AMPUL.NEB INHALE ×2 (07:30→13:24)
[2025-06-20 07:32] VITALS: PULSE 70; RESP 24; O2SAT 98
[2025-06-20 08:30] VITALS: BP 140/58
[2025-06-20] MEDS: Metoprolol Succinate ER 50 MG TAB.ER.24H PO (08:30)
[2025-06-20] MEDS: Lipase/Prot/Amylase 12/38/60K CAPSULE.DR 2 CAP PO ×2 (08:30→12:01)
[2025-06-20] MEDS: 0.9 % Sodium Chloride Flush 3 ML SYRINGE IVFLUSH (08:31)
[2025-06-20 10:49] VITALS: BP 143/68; PULSE 62; RESP 18; TEMP 36.4; O2SAT 98
--- NOTE | 2025-06-20 12:31 | PM.DS ---
DS: Providers Provider Date of Service: 06/20/25 Date of admission: 06/14/25 19:28 Date of discharge: 06/20/25 Primary care physician: MYCHAL Mcarthur Consults: 06/14/25 17:52 Consult to Gastroenterology Routine Consulting Provider: [facility] Reason for consultation: pancreatitis-unclear etiology; duodenal diverticulitis Consult to General Surgery Routine Consulting Provider: [facility] Reason for consultation: duodenal diverticulitis DS: Diagnosis Discharge Diagnosis (1) Pancreatitis: Status: Acute (2) CKD (chronic kidney disease): Status: Acute DS: Summary Hospital Course Hospital Course: 84-year-old female with a past medical history of HTN, HLD, COPD, CKD, history of breast cancer, degenerative spine disease, anxiety, depression, irritable bowel syndrome, GERD, osteoporosis; presented to the hospital today with a chief complaint of abdominal pain. Patient reports that for the past 3 days she has been having abdominal pain; diffuse in nature; SOB nausea and vomiting. Denies any diarrhea. Denies any fevers and chills. Denies any chest pain or palpitations. Denies any concerns for food poisoning. Hospital Course Admitted to telemetry where monitor failed to demonstrate any acute dysrhythmias. Initial lipase was up initially at 700 however over the next 48-72 hours it normalized. Patient was seen in consultation by GI who agreed with conservative management suggestion was to place patient on Creon. Patient did well on Creon and will be discharged with the same. She has a scheduled appointment with GI to follow up. She will follow up with the PCP as well Time Attestation Discharge Coordination Time (in mins): 35 Quality: Safe Use of Opioids Does Pt have an Active Cancer Diagnosis on the Problem List?: No Quality: Stroke Does the patient have a stroke diagnosis?: No Physical Exam Vital Signs: Vital Signs: Last Vital Signs Temp 97.6 F 06/20/25 10:49 Pulse 62 06/20/25 10:49 Resp 18 06/20/25 10:49 BP 143/68 H 06/20/25 10:49 Pulse Ox 98 06/20/25 10:49 O2 Del Method Room Air 06/20/25 10:49 BMI result Body Mass Index 35.1 Const: Other: Awake alert no acute distress Resp: Other: Clear to auscultation bilaterally no rales rhonchi or wheezes Cardio: Other: No S4; positive S1-S2; no S3 murmurs rubs or gallops GI: Other: Soft diffusely tender across lower abdomen. No rebound. Quiet bowel sounds Extrem: Other: No edema bilaterally Discharge Plan Discharge Anticipated Discharge Date/Time: 06/20/25 12:26 Patient Disposition: Home Health Service Discharge Diagnosis: Pancreatitis Referrals: Ellie Marcos PA [Primary Care Provider, Hospitalist] - 1 Week Discharge Medications: New Creon 12,000-38,000 -60,000 unit Capsule,Delayed Release(Dr/Ec) 2 cap PO TIDWM Qty: 180 0RF Continued albuterol sulfate 90 mcg/actuation HFA aerosol inhaler 2 puff inhalation Q6H PRN (Reason: Shortness Of Breath Or Wheezing) Qty: 1 3RF levothyroxine 50 mcg tablet 50 mcg PO DAILY@0600 Qty: 90 1RF hydrochlorothiazide 25 mg tablet 25 mg PO DAILY Qty: 90 1RF tramadol 50 mg tablet 50 mg PO BID Qty: 60 0RF docusate sodium [Colace] 100 mg capsule 100 mg PO DAILY@0800 rabeprazole [AcipHex] 20 mg tablet,delayed release (DR/EC) 20 mg PO DAILY@0630 sertraline 25 mg tablet 25 mg PO DAILY@1800 oxycodone 5 mg tablet 5 mg PO QID@01,07,13,19 PRN (Reason: severe pain) metoprolol succinate 50 mg tablet extended release 24 hr 50 mg PO DAILY ondansetron HCl 4 mg tablet 4 mg PO Q8H PRN (Reason: for nausea/vomiting) Qty: 90 3RF polyethylene glycol 3350 [Miralax] 17 gram/dose powder 17 g PO DAILY Qty: 238 1RF albuterol sulfate 2.5 mg /3 mL (0.083 %) solution for nebulization 2.5 mg inhalation Q4H PRN (Reason: for wheezing) Discharge Orders: Discharge Order (Routine); Ordered 06/20/25 Ordered By: Jeff Brown Diet: Advance to usual diet Activity on Discharge: As tolerated Stand Alone Forms: Patient Portal Discharge page Print Language: Mongolian Care Plan Goals: Resume all meds as taken prior to hospitalization. Creon (pancreatic enzyme) has been added 3 times a day with meals. Health Concerns: Follow up with GI as scheduled Plan of Treatment: Follow up with PCP next available Assessment: See discharge summary
[2025-06-20 13:26] VITALS: PULSE 71; RESP 20; O2SAT 97
--- NOTE | 2025-06-20 13:43 | W.MHC.F2F ---
Service Date Service Date: 06/20/25 Encounter Date of encounter: 06/20/25 Encounter: Acute hospitalization Reasons for Services Signs and symptoms assessed: Requires nursing home for med management and education and physical therapy Reason for nursing home: medication management and teach disease management Reason for physical therapy: therapeutic exercises and gait/transfer training Homebound: Leaving the home is medically contraindicated at this time without the asist of a device and/or another person due th the listed conditions above and below. Reason homebound: unsteady gait / fall risk and unable to drive Certification: Based on the above findings, I certify that this patient is confined to the home and needs intermittent nursing home care, physical therapy and/or speech therapy, or continues to need occupational therapy. The patient is under my care, and I have initiated the establishment of the plan of care. The patient will be followed by a physician who will periodically review the plan of care. Time Spent With Patient Time: Total time managing care of this patient today ____ minutes.
== END 2025-06-20 14:40 | disposition home health service (06) | DRG 439 ==
LOC: HO.ED 19:25 → HO.EDOVER 19:35 → HO.IMC 19:49
PROVIDERS: Internal Medicine; Nurse Practitioner Family; Admitting Provider Hospitalist; Emergency Provider Emergency Medicine Emergency Medical Services; PCP Physician Assistant; Visit Provider Hospitalist
DX: K85.10 Biliary acute pancreatitis without necrosis or infection (principal); J44.1 Chronic obstructive pulmonary disease with (acute) exacerbation; I12.9 Hypertensive chronic kidney disease with stage 1 through stage 4 chronic kidney disease, or unspecified chronic kidney disease; K80.20 Calculus of gallbladder without cholecystitis without obstruction; N18.30 Chronic kidney disease, stage 3 unspecified; E03.9 Hypothyroidism, unspecified; K57.10 Diverticulosis of small intestine without perforation or abscess without bleeding; Z20.822 Contact with and (suspected) exposure to COVID-19; Z87.891 Personal history of nicotine dependence; Z79.890 Hormone replacement therapy; Z79.899 Other long term (current) drug therapy
CPT/HCPCS: 36415; 71046; 74018; 74176; 80048; 80053; 80061; 80076; 81001; 82784; 83540; 83605; 83690; 83735; 84484; 85025; 85027; 87040; 87502; 87635; 93005; 94640; 97162; 99285; J0696; J1171; J1200; J1308; J1650; J1836; J2405; J2470; J2765; J2919; J3010; J7120

== ENCOUNTER → 2025-06-14 11:00 | Outpatient (BNV) | payer MEDICARE, SELFPAY | PROVIDERS: Emergency Provider Emergency Medicine Emergency Medical Services; PCP Physician Assistant; Visit Provider Radiology Diagnostic Radiology | DX: R10.84 Generalized abdominal pain (principal); R06.02 Shortness of breath; K59.00 Constipation, unspecified | CPT/HCPCS: 71046; 74018 ==

== ENCOUNTER → 2025-06-14 11:39 | Outpatient (BNV) | payer MEDICARE, SELFPAY | PROVIDERS: Admitting Provider Hospitalist; Emergency Provider Emergency Medicine Emergency Medical Services; PCP Physician Assistant; Visit Provider Internal Medicine Cardiovascular Disease | DX: R94.31 Abnormal electrocardiogram [ECG] [EKG] (principal); R10.84 Generalized abdominal pain | CPT/HCPCS: 93010 ==

== ENCOUNTER → 2025-06-14 19:28 | Outpatient (BNV) | payer MEDICARE, SELFPAY | PROVIDERS: Admitting Provider Hospitalist; Emergency Provider Emergency Medicine Emergency Medical Services; PCP Physician Assistant; Visit Provider Surgery | DX: K85.90 Acute pancreatitis without necrosis or infection, unspecified (principal); R11.2 Nausea with vomiting, unspecified; K57.10 Diverticulosis of small intestine without perforation or abscess without bleeding | CPT/HCPCS: 99222 ==

== ENCOUNTER → 2025-06-14 19:28 | Outpatient (BNV) | payer MEDICARE, SELFPAY | PROVIDERS: Admitting Provider Hospitalist; Emergency Provider Emergency Medicine Emergency Medical Services; PCP Physician Assistant; Visit Provider Internal Medicine | DX: K85.90 Acute pancreatitis without necrosis or infection, unspecified (principal); K80.20 Calculus of gallbladder without cholecystitis without obstruction; K59.00 Constipation, unspecified; K57.10 Diverticulosis of small intestine without perforation or abscess without bleeding | CPT/HCPCS: 99223 ==

== ENCOUNTER → 2025-06-14 19:28 | Outpatient (BNV) | payer MEDICARE, SELFPAY | PROVIDERS: Admitting Provider Hospitalist; Emergency Provider Emergency Medicine Emergency Medical Services; PCP Physician Assistant; Visit Provider Internal Medicine | DX: K85.90 Acute pancreatitis without necrosis or infection, unspecified (principal) | CPT/HCPCS: 99223; 99232 ==

== ENCOUNTER 2025-07-07 08:55 | Outpatient (AMB) | payer MEDICARE, SELFPAY ==
--- NOTE | 2025-07-07 08:58 | MHC.PC.OV ---
Vital Signs 07/07/25 09:40 Height 4 ft 9.91 in Weight 83.007 kg BMI 38.4 BP 102/72 Blood Pressure Location Lt brachial Position Sitting Respiration 20 Pulse 69 Pulse Source Pulse Oximeter Temp 97.6 F Temp Source Temporal Artery Scan Pulse Oximetry (%) 97 Oxygen Delivery Method Room Air Intake Visit Reasons: dc f/u Drafter Electronic Required: No Accompanied by: Self / Same As Patient Allergies gabapentin Allergy (Severe, Verified 07/07/25 08:59) severe urinary incont. codeine (CODEINE) Allergy (Intermediate, Verified 07/07/25 08:59) Rash fish derived (FISH) Allergy (Intermediate, Verified 07/07/25 08:59) HIVES Iodinated Contrast Media (IV Dye, Iodine Containing) Allergy (Intermediate, Verified 07/07/25 08:59) HIVES nitrofurantoin (Nitrofurantoin) Allergy (Intermediate, Verified 07/07/25 08:59) HIVES Sulfa (Sulfonamide Antibiotics) (SULFA (SULFONAMIDE ANTIBIOTICS)) Allergy (Intermediate, Verified 07/07/25 08:59) RASH valsartan (From DIOVAN) Allergy (Intermediate, Verified 07/07/25 08:59) HIVES vancomycin (VANCOMYCIN) Allergy (Intermediate, Verified 07/07/25 08:59) RASH Penicillins (PENICILLINS) Allergy (Mild, Verified 07/07/25 08:59) RASH adhesive (ADHESIVE) Allergy (Unknown, Verified 07/07/25 08:59) UNKNOWN hydrocodone (Vicodin) Allergy (Unknown, Verified 07/07/25 08:59) Unknown ibuprofen (IBUPROFEN) Adverse Reaction (Unknown, Verified 07/07/25 08:59) UNKNOWN Medication List - Last Reconciled 07/07/25 by MYCHAL Mcarthur albuterol sulfate 90 mcg/actuation 2 puffs inhalation Q6H PRN albuterol sulfate 2.5 mg inhalation Q4H PRN docusate sodium (Colace) 100 mg PO DAILY@0800 fluticasone propion-salmeterol 250-50 mcg/dose (Wixela Inhub) inhalation BID hydrochlorothiazide 25 mg PO DAILY levothyroxine 50 mcg PO DAILY@0600 [id number]-ciuqjjvu-gwcfatv (pork) 12,000-38,000 -60,000 unit (Creon) 2 caps PO TIDWM metoclopramide HCl (Reglan) 5 mg PO TID PRN metoprolol succinate ER 50 mg PO DAILY ondansetron HCl 4 mg PO Q8H PRN oxycodone 5 mg PO QID@01,07,13,19 PRN polyethylene glycol 3350 (Miralax) 17 grams PO DAILY rabeprazole (AcipHex) 20 mg PO DAILY@0630 sertraline 25 mg PO DAILY@1800 tramadol 50 mg PO BID Tobacco use date assessed: 12/25/24 Dental Screening Dental Screen Date: 12/25/24 HPI HPI Comments History of Present Illness Details 4-year-old female with history of asthma/COPD overlap, hypertension, hypothyroidism, anxiety presenting to the office today for hospital discharge follow-up. She presented to [facility] due to severe epigastric pain radiating to the left flank. There had also been associated nausea but no vomiting. She did have diarrhea but has had this chronically over the last 70 years and does follow with Gastroenterology. On arrival did have a leukocytosis of 12.2 which did increase to 21.7 and then gradually decreased. Renal function remained baseline. Mild hyponatremia of 132. Borderline potassium of 3.3. CT abdomen/pelvis did suspect pancreatitis versus duodenal diverticulitis. She was resuscitated with IV fluids as well as given antiemetics. Gastroenterology was consulted who recommended conservative management at that time. She was started on Creon and diet was gradually advanced with good tolerance. Today, she reports that she has feeling better than she had been. However, she does still experience quick sharp pains in the epigastrium radiating to the left flank that only lasts several sec. She does continue with some nausea, primarily at bedtime and upon waking. No vomiting. Abnormal bowel movements continue. Reports symptoms are completely random, not necessaily r/t food. She has upcoming appt with Dr. Vic Domingo on 08/11. ROS: as noted in hpi EXAM: Constitutional - Awake and Alert, No apparent distress Eyes - PERRL Cardiovascular - S1S2, RRR, No edema Respiratory - Normal lung expansion, Normal respiratory effort, No respiratory distress, CTA bilaterally Abd- mild ttp in the epigastrium. 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 difficile colitis Breast cancer Surgical History (Updated 06/27/25 @ 15:05 by Irasema Briceño) History of esophagogastroduodenoscopy (EGD) H/O colonoscopy (~07/25/18) H/O lymph node biopsy Hx of cataract surgery History of tonsillectomy and adenoidectomy H/O hysterectomy for benign disease History of total bilateral knee replacement H/O kyphoplasty Family History Father No problems noted. Mother Breast cancer Sister Breast cancer Social History Household Members: Children Household Members Other:: With Son Julian Housing: House Are you a primary lawn care worker to a significant other at home: No Do you presently have visiting nurse or other home services: No Alcohol intake: never Patient Tobacco Use Status: Former Tobacco user Years Smoked: 10 e-Cigarette/Vaping Use: Never Used Substance Use Type: Marijuana Advance Directives Date on File: 05/16/25 service: No Current occupational status: retired Cognitive needs: No Hearing needs: No Vision needs: Yes (rx glasses) Questionnaire Thrive Questionnaire Date Thrive assessed: 06/15/25 ALLI-7 AMB Questionnaire ALLI-7 Date ALLI - 7 assessed: 12/25/24 Source: Developed by Drs. Julian Martinez, Daya Jose, Jossue Izaguirre and colleagues, with an educational venkatesh from [employer]. Physical exam (Primary Care) Vital Signs: Last Vital Signs Temp 97.6 F 07/07/25 09:40 Pulse 69 07/07/25 09:40 Resp 20 07/07/25 09:40 BP 102/72 07/07/25 09:40 Pulse Ox 97 07/07/25 09:40 Oxygen Delivery Method Room Air 07/07/25 09:40 BMI result Body Mass Index 38.4 Tobacco/Smoking Status: Tobacco use Status Tobacco use date assessed 12/25/24 07/07/25 08:59 Patient Tobacco Use Status Former Tobacco user 07/07/25 08:59 e-Cigarette/Vaping Use Never Used 07/07/25 08:59 Thrive Assessment: Date of Thrive Assessment Date Thrive assessed 06/15/25 07/07/25 08:59 Coding Level of Care Code Est Pt Level 4 (09696) Complex EM visit Add On G2211 Diagnoses Acute pancreatitis, unspecified complication status, unspecified pancreatitis type K85.90 Chronicity: acute Pancreatitis type: unspecified pancreatitis type Acute pancreatitis complication: unspecified Chronic diarrhea K52.9 Hospital discharge follow-up Z09 Assessment & Plan Assessment & Plan (1) Pancreatitis: Code(s): K85.90 - Acute pancreatitis without necrosis or infection, unspecified Category: Medical Qualifiers: Chronicity: acute Pancreatitis type: unspecified pancreatitis type Acute pancreatitis complication: unspecified Qualified Code(s): K85.90 - Acute pancreatitis without necrosis or infection, unspecified Plan: Possibly chronic, r/t duodenitis vs gallstone. Follow up with GI as scheduled, advised to contact office to be placed on cancellation list. Continue Creon and avoid highly fatty foods. No alcohol use. Continue ondansetron PRN as well as rabepraole daily. Reviewed Hospital dc follow up, GI consult, ct abd, labs. (2) Chronic diarrhea: Code(s): K52.9 - Noninfective gastroenteritis and colitis, unspecified Category: Medical Plan: Possibly related to chronic pancreatitis versus IBS. Follow-up with gastroenterology as scheduled. Continue creon (3) Hospital discharge follow-up: Code(s): Z09 - Encounter for follow-up examination after completed treatment for conditions other than malignant neoplasm Category: Medical Plan: Hospital discharge medications reviewed and reconciled. Reviewed chart as above Plan Follow-up in the office next month as scheduled Patient Instructions: Contact gastroenterology office (Dr. Ho)- scheduled for 08/11, but ask to be placed on cancellation list. [phone]
[2025-07-07 09:40] VITALS: BP 102/72; PULSE 69; RESP 20; TEMP 36.4; O2SAT 97; BMI 38.4
== END 2025-07-07 10:22 | disposition home or self-care (01) ==
LOC: HO.HMCHD 08:55
PROVIDERS: PCP Physician Assistant; Visit Provider Physician Assistant
DX: K85.90 Acute pancreatitis without necrosis or infection, unspecified (principal); K52.9 Noninfective gastroenteritis and colitis, unspecified; Z09 Encounter for follow-up examination after completed treatment for conditions other than malignant neoplasm

== ENCOUNTER → 2025-07-07 08:55 | Outpatient (BNVA) | payer MEDICARE, SELFPAY | PROVIDERS: PCP Physician Assistant; Visit Provider Physician Assistant | DX: Z09 Encounter for follow-up examination after completed treatment for conditions other than malignant neoplasm (principal); K85.90 Acute pancreatitis without necrosis or infection, unspecified; K52.9 Noninfective gastroenteritis and colitis, unspecified; J44.89 Other specified chronic obstructive pulmonary disease; I10 Essential (primary) hypertension; E03.9 Hypothyroidism, unspecified; F41.9 Anxiety disorder, unspecified | CPT/HCPCS: 99212 ==

== ENCOUNTER 2025-07-11 07:11 | Emergency (ER) | payer MEDICARE, SELFPAY ==
--- NOTE | ~2025-07-11 | XR_ITS ---
EXAMINATION: XR HIP, LEFT CLINICAL INFORMATION: pain COMPARISON: X-ray 03/17/2025 TECHNIQUE: Two views of the left hip. Pelvis 1 view. FINDINGS: Left hip: No acute fracture or dislocation. Mild left hip arthritis. No abnormal soft tissue calcification. No radiopaque foreign body. Pelvis: Mild left hip arthritis. No acute fracture or dislocation. SI joints and symphysis pubis intact. Surgical clips projected over the pelvis. Spondylosis in the visualized lower lumbar spine. XR/XR hip LT min 2V IMPRESSION: No acute osseous findings. Electronically signed by: Reinier Douglas MD 07/11/2025 08:41 AM EDT
--- NOTE | ~2025-07-11 | XR_ITS ---
EXAMINATION: XR LUMBOSACRAL SPINE CLINICAL INFORMATION: pain COMPARISON: Radiographs on February 14, 2023 TECHNIQUE: Three views of the lumbosacral spine. FINDINGS: Diffuse bone demineralization. Grade 1 anterolisthesis of L4 on L5 and L5 and S1 has mildly progressed from 2022. Vertebroplasty material within L3 vertebral body. Chronic moderate compression deformity of L4 vertebral body is similar to 2022. No acute appearing compression fracture deformity. Advanced facet arthropathy in the lumbar spine. Bilateral sacroiliac joints are intact. Severe vascular calcifications. Multiple surgical clips in the pelvis. XR/XR lumbar spine 2-3V IMPRESSION: 1. No acute appearing compression fracture deformity. 2. Similar moderate compression deformity of L4. 3. Mild interval progression of grade 1 anterolisthesis of L4 on L5 and L5 on S1. Electronically signed by: Benson Taylor MD 07/11/2025 08:41 AM EDT
[2025-07-11 07:30] VITALS: BP 142/82; BP 188/77; PULSE 75; PULSE 87; RESP 20; TEMP 36.3; O2SAT 97; O2SAT 98; BMI 43.1
[2025-07-11] MEDS: oxyCODONE HCl Immed Release 5 MG TABLET PO (07:56)
--- NOTE | 2025-07-11 07:58 | ED.BACK ---
HPI - Back Pain/Injury General Chief Complaint: Back Pain/Injury Stated Complaint: LOWER BACK PAIN Time Seen by Provider: 07/11/25 07:13 Source: patient, EMS and old records reviewed Mode of arrival: EMS Limitations: no limitations History of Present Illness ED Provider: SONNY VELIZ Narrative: 84 yof emale with PMH of COPD, IBS, esophagitis, HLD, GERD, osteoporosis, CKD chronic back issues s/p kypho and lumbar surgeries, not on blood thinners who was recently admitted for pancreatitis and DC on 06/20 - she notes her abdominal pain has improved. She comes in today with c/o 2 days of L low back pain radiating to hip. She woke up this way. She denies n/v/, numbness, weakness, loss of control of bowel or bladder. No urinary symptoms. She has tried tramadol, oxycodone without relief. She denies trauma. She notes when she gets up and puts her heel down it is severe. She has had this before. MD elicited complaint: back pain and back injury Pertinent past history: prior back pain Onset (ago): day(s) (2) Timing: progressively worsening Severity: moderate Similar Symptoms Previously: Yes Quality: sharp Location: lumbar spine and left lower back Radiation: left upper leg Exacerbating factors: movement Relieving factors: none Context: unknown Associated symptoms: denies other symptoms Related Data Home Medications ?Medication ?Instructions ?Recorded ?Confirmed metoprolol succinate 50 mg 50 mg PO DAILY 06/15/20 07/07/25 tablet,extended release 24 hr albuterol sulfate 2.5 mg/3 mL 2.5 mg inhalation Q4H PRN for 03/25/24 07/07/25 (0.083 %) solution for nebulization wheezing docusate sodium 100 mg capsule 100 mg PO DAILY@0800 05/16/25 07/07/25 (Colace) rabeprazole 20 mg tablet,delayed 20 mg PO DAILY@0630 06/14/25 07/07/25 release (AcipHex) sertraline 25 mg tablet 25 mg PO DAILY@1800 06/14/25 07/07/25 fluticasone 250 mcg-salmeterol 50 inhalation BID 07/07/25 07/07/25 mcg/dose blistr powdr for inhalation (Hasmukh Crocker) Previous Rx's ?Medication ?Instructions ?Recorded hydrochlorothiazide 25 mg tablet 25 mg PO DAILY #90 tabs 04/03/25 levothyroxine 50 mcg tablet 50 mcg PO DAILY@0600 #90 tabs 04/03/25 ondansetron HCl 4 mg tablet 4 mg PO Q8H PRN for 05/12/25 nausea/vomiting #90 tabs polyethylene glycol 3350 17 17 g PO DAILY #238 grams 05/23/25 gram/dose oral powder (Miralax) tramadol 50 mg tablet 50 mg PO BID moderate pain #60 tabs 06/11/25 metoclopramide HCl 5 mg tablet 5 mg PO TID PRN nausea and 06/20/25 (Reglan) vomiting #60 tabs albuterol sulfate 90 mcg/actuation 2 puff inhalation Q6H PRN for 07/02/25 aerosol inhaler wheezing #18 ea oxycodone 5 mg tablet 5 mg PO QID@01,07,13,19 PRN severe 07/04/25 pain #30 tabs maglbs-rhrioiim-ivcxurf(pork)12,000-38,000-60,000 2 cap PO TIDWM #180 caps 07/09/25 unit capsule,del rel (Creon) prednisone 20 mg tablet 40 mg (2 x 20 mg) PO DAILY 4 days 07/11/25 #8 tabs Allergies Allergy/AdvReac Type Severity Reaction Status Date / Time gabapentin Allergy Severe severe Verified 07/11/25 07:34 urinary incont. codeine (CODEINE) Allergy Intermediate Rash Verified 07/11/25 07:34 fish derived (FISH) Allergy Intermediate HIVES Verified 07/11/25 07:34 Iodinated Contrast Media (IV Allergy Intermediate HIVES Verified 07/11/25 07:34 Dye, Iodine Containing) nitrofurantoin Allergy Intermediate HIVES Verified 07/11/25 07:34 (Nitrofurantoin) Sulfa (Sulfonamide Allergy Intermediate RASH Verified 07/11/25 07:34 Antibiotics) (SULFA (SULFONAMIDE ANTIBIOTICS)) valsartan (From DIOVAN) Allergy Intermediate HIVES Verified 07/11/25 07:34 vancomycin (VANCOMYCIN) Allergy Intermediate RASH Verified 07/11/25 07:34 Penicillins (PENICILLINS) Allergy Mild RASH Verified 07/11/25 07:34 adhesive (ADHESIVE) Allergy Unknown UNKNOWN Verified 07/11/25 07:34 hydrocodone (Vicodin) Allergy Unknown Unknown Verified 07/11/25 07:34 ibuprofen (IBUPROFEN) AdvReac Unknown UNKNOWN Verified 07/11/25 07:34 Review of Systems Review of Systems: Constitutional : No Weight loss, No Fever, No Chills, ENT/Mouth : No Hearing loss, No Ear Pain, No Nasal Congestion, No Sinus Pain, No Hoarseness, No sore throat, No Rhinorrhea, No Swallowing Difficulty Cardiovascular : No Chest Pain, No SOB Respiratory : No Cough, No Dyspnea Gastrointestinal : No Nausea, No Vomiting, No Diarrhea, No abdominal Pain, No Hematochezia, No Melena Genitourinary : No Dysuria, No Urinary Frequency, No Hematuria, No Urinary Incontinence, Musculoskeletal : positive back pain Skin : No Skin Lesions, No rash Neuro : No Weakness, No Numbness, No Paresthesias, no loss of bowel or bladder incontinence, no saddle anesthesia Yes all other systems are reviewed and are negative PMFSH Past Medical History Attestation statement: The following information was validated with the patient. 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 difficile colitis Breast cancer Surgical History History of esophagogastroduodenoscopy (EGD) H/O colonoscopy (~07/25/18) H/O lymph node biopsy Hx of cataract surgery History of tonsillectomy and adenoidectomy H/O hysterectomy for benign disease History of total bilateral knee replacement H/O kyphoplasty Family History Family History Father No problems noted. Mother Breast cancer Sister Breast cancer Social History Social History Household Members: Children Household Members Other:: With Son Julian Housing: House Are you a primary skin care specialist to a significant other at home: No Do you presently have visiting nurse or other home services: No Alcohol intake: never Patient Tobacco Use Status: Former Tobacco user Years Smoked: 10 Smoked in Last 30 Days: No e-Cigarette/Vaping Use: Never Used Use of substances other than those prescribed or required for medical reasons: No Substance Use Type: Marijuana Advance Directives: Yes Advance Directives on File: Yes Advance Directives Date on File: 05/16/25 Do you have a plan to hurt others: No Plan service: No Current occupational status: retired Cognitive needs: No Hearing needs: No Vision needs: Yes (rx glasses) Physical Exam Vital Signs: Vital Signs: Last Vital Signs Temp 97.4 F 07/11/25 07:30 Pulse 83 07/11/25 09:26 Resp 20 07/11/25 09:26 BP 148/79 H 07/11/25 09:26 Pulse Ox 97 07/11/25 09:26 O2 Del Method Room Air 07/11/25 07:30 BMI result Body Mass Index 43.1 Appearance: Alert. Oriented X3. No acute distress. Eyes: Pupils equal, round and reactive to light. ENT: Pharynx normal. Neck: Normal inspection. Neck supple. CVS: Normal heart rate and rhythm. Pulses normal. Respiratory: No respiratory distress. Breath sounds normal. Abdomen: Soft and nontender. Back: reproduces pain on L lower lumbar area with reproduction on L buttock of pain Skin: Skin warm and dry. Normal skin color. Normal skin turgor. Extremities: No lower extremity edema. No calf ttp Neuro: Oriented X 3. No motor deficit. No sensory deficit. CN2-12 intact L5/5 bilaterally, SILT intact inner thighs, 2+ DTR in patella and achilles Medications Administered Discontinued Medications Generic Name Dose Route Start Last Admin Trade Name Freq PRN Reason Stop Dose Admin Cyclobenzaprine HCl 5 mg 07/11/25 07:40 07/11/25 07:56 Cyclobenzaprine Hcl 5 Mg Tablet PO 07/11/25 07:41 5 mg ONCE ONE Administration Oxycodone HCl 5 mg 07/11/25 07:40 07/11/25 07:56 Oxycodone Hcl Immed Release 5 Mg Tablet PO 07/11/25 07:41 5 mg ONCE ONE Administration Prednisone 40 mg 07/11/25 07:40 07/11/25 07:56 Prednisone 20 Mg Tablet PO 07/11/25 07:41 40 mg ONCE ONE Administration Medical Decision Making Medical Decision Making MDM Narrative: 84 yof emale with PMH of COPD, IBS, esophagitis, HLD, GERD, osteoporosis, CKD chronic back issues s/p kypho and lumbar surgeries, not on blood thinners now here with c/o L buttock/low back pain concerning for sciatica she is NV intact, she will need xray of low back and L hip, start on prednisone and po pain control. Suspect lumbar radiculopathy and or sciatica. No cauda equina symptoms. Differential Diagnosis Differential Diagnoses: The differential diagnosis associated with the presentation includes sciatica, lumbar radiculopathy Admission/Observation Consideration of admission/observation: Escalation of care including admission/observation considered walking feels much better stable for DC at this time Independent Interpretation I performed an independent interpretation of an: Plain X-Ray (no acute fracture or injury) Radiology Impression Discussion of test interpretation with radiology: I have reviewed the radiologist's reading. External Record Review External record reviewed: Inpatient record, Outpatient record, Prior outpatient labs and Prior outpatient radiology Prescription Management I considered prescription management with: Pain Medication and Other Discharge Plan Discharge Clinical Impression: Lumbar radiculopathy Sciatica Qualifiers: Laterality: left Qualified Code(s): M54.32 - Sciatica, left side Patient Disposition: Home, Self-Care Instructions: Sciatica (ED), Lumbar Radiculopathy (ED) Additional Instructions: no broken bones on exam you have arthritis I suspect this is due to pinched nerve make sure you follow up with your doctor return for any worsening symptoms or concerns, new numbness, weakness, unable to walk take medications with food Prescriptions: New prednisone 20 mg tablet 40 mg PO DAILY 4 Days Qty: 8 0RF No Action levothyroxine 50 mcg tablet 50 mcg PO DAILY@0600 Qty: 90 1RF hydrochlorothiazide 25 mg tablet 25 mg PO DAILY Qty: 90 1RF tramadol 50 mg tablet 50 mg PO BID Qty: 60 0RF albuterol sulfate 90 mcg/actuation HFA aerosol inhaler 2 puff inhalation Q6H PRN (Reason: for wheezing) Qty: 18 3RF oxycodone 5 mg tablet 5 mg PO QID@01,07,13,19 PRN (Reason: severe pain) Qty: 30 0RF Creon 12,000-38,000 -60,000 unit capsule,delayed release(DR/EC) 2 cap PO TIDWM Qty: 180 0RF docusate sodium [Colace] 100 mg capsule 100 mg PO DAILY@0800 rabeprazole [AcipHex] 20 mg tablet,delayed release (DR/EC) 20 mg PO DAILY@0630 sertraline 25 mg tablet 25 mg PO DAILY@1800 metoclopramide HCl [Reglan] 5 mg tablet 5 mg PO TID PRN (Reason: nausea and vomiting) Qty: 60 0RF metoprolol succinate 50 mg tablet extended release 24 hr 50 mg PO DAILY ondansetron HCl 4 mg tablet 4 mg PO Q8H PRN (Reason: for nausea/vomiting) Qty: 90 3RF polyethylene glycol 3350 [Miralax] 17 gram/dose powder 17 g PO DAILY Qty: 238 1RF fluticasone propion-salmeterol [Wixela Inhub] 250-50 mcg/dose blister with device inhalation BID albuterol sulfate 2.5 mg /3 mL (0.083 %) solution for nebulization 2.5 mg inhalation Q4H PRN (Reason: for wheezing) Print Language: Maltese
--- NOTE | 2025-07-11 08:06 | PC.NURSE ---
pt is alert and oriented, skin pwd, respirations even and unlabored, pt reports for about two days having left sided back pain that radiates to the front and down her left leg, denies n/v/d/urinary symptoms/injury, bowel sounds in all 4 quadrants, abd soft and non-tender, pt appears in a lot of discomfort cant get comfortable, keeps yelling out in pain
[2025-07-11 09:26] VITALS: BP 148/79; PULSE 83; RESP 20; O2SAT 97
--- NOTE | 2025-07-11 09:27 | PC.NURSE ---
pt actually slept for about 20-30min, is awake now and is reporting that the pain is coming back, pain at 6/10
--- NOTE | 2025-07-11 09:42 | PC.NURSE ---
did an ambulation trial and the pt did well, the pt reported at home she was barly able to walk do to the md tommie aware
[2025-07-11 10:40] VITALS: BP 148/79; PULSE 83; RESP 20; TEMP -17.7; TEMP 0; O2SAT 97
== END 2025-07-11 10:41 | disposition home or self-care (01) ==
PROVIDERS: Emergency Provider Emergency Medicine; PCP Physician Assistant
DX: M54.16 Radiculopathy, lumbar region (principal); M54.32 Sciatica, left side; E78.5 Hyperlipidemia, unspecified; K21.9 Gastro-esophageal reflux disease without esophagitis; I12.9 Hypertensive chronic kidney disease with stage 1 through stage 4 chronic kidney disease, or unspecified chronic kidney disease; N18.9 Chronic kidney disease, unspecified; Z87.891 Personal history of nicotine dependence
CPT/HCPCS: 72100; 73502; 99283; 99284

== ENCOUNTER → 2025-07-11 07:40 | Outpatient (BNV) | payer MEDICARE, SELFPAY | PROVIDERS: Emergency Provider Emergency Medicine; PCP Physician Assistant; Visit Provider Radiology Body Imaging | DX: M43.9 Deforming dorsopathy, unspecified (principal) | CPT/HCPCS: 72100 ==

== ENCOUNTER 2025-07-18 10:47 | Outpatient (AMB) | payer MEDICARE, SELFPAY ==
--- NOTE | 2025-07-18 10:56 | A.OFFPC_ITS ---
Vital Signs 07/18/25 11:09 Height 4 ft 9 in Weight 83.461 kg BMI 39.8 BP 120/70 Blood Pressure Location Rt brachial Position Sitting Respiration 20 Pulse 66 Pulse Source Pulse Oximeter Temp 97.9 F Temp Source Temporal Artery Scan Pulse Oximetry (%) 96 Oxygen Delivery Method Room Air Intake Visit Reasons: recent fall, wheezing, COPD, dizziness w/ exertion [facility] Pricing Consultant Required: No Accompanied by: Self / Same As Patient Allergies gabapentin Allergy (Severe, Verified 07/18/25 10:57) severe urinary incont. codeine (CODEINE) Allergy (Intermediate, Verified 07/18/25 10:57) Rash fish derived (FISH) Allergy (Intermediate, Verified 07/18/25 10:57) HIVES Iodinated Contrast Media (IV Dye, Iodine Containing) Allergy (Intermediate, Verified 07/18/25 10:57) HIVES nitrofurantoin (Nitrofurantoin) Allergy (Intermediate, Verified 07/18/25 10:57) HIVES Sulfa (Sulfonamide Antibiotics) (SULFA (SULFONAMIDE ANTIBIOTICS)) Allergy (Intermediate, Verified 07/18/25 10:57) RASH valsartan (From DIOVAN) Allergy (Intermediate, Verified 07/18/25 10:57) HIVES vancomycin (VANCOMYCIN) Allergy (Intermediate, Verified 07/18/25 10:57) RASH Penicillins (PENICILLINS) Allergy (Mild, Verified 07/18/25 10:57) RASH adhesive (ADHESIVE) Allergy (Unknown, Verified 07/18/25 10:57) UNKNOWN hydrocodone (Vicodin) Allergy (Unknown, Verified 07/18/25 10:57) Unknown sertraline Adverse Reaction (Intermediate, Verified 07/18/25 11:08) nightmares ibuprofen (IBUPROFEN) Adverse Reaction (Unknown, Verified 07/18/25 10:57) UNKNOWN Tobacco use date assessed: 12/25/24 Dental Screening Dental Screen Date: 12/25/24 HPI HPI Comments History of Present Illness Details 84 year old female with history of asthm a-copd overlap, htn, hypothyroidism, long-term opioid use presenting for follow up. Here today with her son HTN: on hctz, metoprolol. BP 120/70. Denies chest pain, dyspnea Hypothyroid: on levothyroxine. heme/onc: History of breast cancer. follows with Dr Beauchamp. 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 A sentinel node biopsy on 06/26/2015 was then performed which produced two lymph nodes negative for carcinoma ([id number]). She completed radiation therapy in August 2015 and took 5 years of tamoxifen ENT-benign parotid masses. Dysphagia GI: Dysphagia-on aciphex. Frequent nausea. Has both reglan and ondansetron. She believes the zofran is working more effectively. HIDA negative for obstruction, unable to tolerate some of the imaging. Gastric emptying. Alternating diarrhea and constipation ongoing years. Currently constipation, no BM in days. No severe pain or vomiting. IBS-has upcoming appointment with Dr. Ho for 2nd opinion BH: Still with anxiety, particulary at bedtime when she cannot sleep. Tried trazodone. Given ambien years ago in oncology. Stopped lorazepam. Stopped sertraline, worsening anxiety issues with these. Does want to try other medications. COPD/Asthma-follows with pulm. Upcoming [place] [facility] [place]. Doing breathing exercises. 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 With facet arthropathy and compression fracture at L3 Concerns: 2 days ago, had a fall [facility]. She reports the left lower extremity buckled and felt weak causing her to fall. She hit her right arm on the vehicle and then fell onto the ground on her left buttock and thigh. She did require assistance get up but declined an ambulance. No head strike. Denies any prodrome such as dyspnea, palpitations, lightheadedness, chest pain. No prior episodes. Does have history of sciatica. She does have bruising on the left thigh ROS: See HPI EXAM: Constitutional - Awake and Alert, No apparent distress Eyes - PERRL Cardiovascular - S1S2, RRR, No edema Respiratory - Normal lung expansion, Normal respiratory effort, No respiratory distress, CTA bilaterally MSK-midline and bilateral paraspinal tenderness to palpation at the level of about L5-S1 into the left SI joint. Extremities - no calf tenderness bilaterally, no swelling Skin - Warm/Dry Neurological - Alert & oriented x3. 4/5 strength LLE, 5/5 strength RLE. Sensation in tact Psychological - Appropriate affect 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 difficile colitis Breast cancer Surgical History History of esophagogastroduodenoscopy (EGD) H/O colonoscopy (~07/25/18) H/O lymph node biopsy Hx of cataract surgery History of tonsillectomy and adenoidectomy H/O hysterectomy for benign disease History of total bilateral knee replacement H/O kyphoplasty Family History Father No problems noted. Mother Breast cancer Sister Breast cancer Social History Household Members: Children Household Members Other:: With Son Julian Housing: House Are you a primary inspector health care facilities to a significant other at home: No Do you presently have visiting nurse or other home services: No Alcohol intake: never Patient Tobacco Use Status: Former Tobacco user Years Smoked: 10 e-Cigarette/Vaping Use: Never Used Substance Use Type: Marijuana Advance Directives Date on File: 05/16/25 service: No Current occupational status: retired Cognitive needs: No Hearing needs: No Vision needs: Yes (rx glasses) Questionnaire Thrive Questionnaire Date Thrive assessed: 06/15/25 ALLI-7 AMB Questionnaire ALLI-7 Date ALLI - 7 assessed: 12/25/24 Source: Developed by Drs. Julian Martinez, Daya Jose, Jossue Izaguirre and colleagues, with an educational venkatesh from [employer]. Physical exam (Primary Care) Vital Signs: Last Vital Signs Temp 97.9 F 07/18/25 11:09 Pulse 66 07/18/25 11:09 Resp 20 07/18/25 11:09 BP 120/70 07/18/25 11:09 Pulse Ox 96 07/18/25 11:09 Oxygen Delivery Method Room Air 07/18/25 11:09 BMI result Body Mass Index 39.8 Tobacco/Smoking Status: Tobacco use Status Tobacco use date assessed 12/25/24 07/18/25 10:57 Patient Tobacco Use Status Former Tobacco user 07/18/25 10:57 e-Cigarette/Vaping Use Never Used 07/18/25 10:57 Thrive Assessment: Date of Thrive Assessment Date Thrive assessed 06/15/25 07/18/25 10:57 Coding Level of Care Code Est Pt Level 4 (91595) Complex EM visit Add On G2211 Diagnoses Fall W19.XXXA Left leg weakness R29.898 Degenerative joint disease (DJD) of lumbar spine M47.816 Insomnia G47.00 Assessment & Plan Assessment & Plan (1) Fall: Code(s): W19.XXXA - Unspecified fall, initial encounter Category: Medical Plan: Due to left lower extremity weakness. Suspect related to DJD lumbar spine. Continue use of assistive devices. PT ordered through [facility] service which is already coming to her home (2) Left leg weakness: Code(s): R29.898 - Other symptoms and signs involving the musculoskeletal system Category: Medical Plan: As above (3) Degenerative joint disease (DJD) of lumbar spine: Comment: with facet arthropathy and stenosis history of L3 compression fracture status post kyphoplasty Code(s): M47.816 - Spondylosis without myelopathy or radiculopathy, lumbar region Category: Medical Plan: As above (4) Insomnia: Code(s): G47.00 - Insomnia, unspecified Category: Medical Plan: Has tried and failed multiple medications including Ambien and trazodone as well as melatonin. Discussed healthy sleep habits and given written instructions for this. Recommend sound machine. Trial valerian root and continue using chamomile TS Plan Follow-up in the office in 3 months Patient Instructions: Try valerian root for insomnia Try a sound machine. Try to avoid TV in the background
[2025-07-18 11:09] VITALS: BP 120/70; PULSE 66; RESP 20; TEMP 36.6; O2SAT 96; BMI 39.8
--- OUTSIDE RECORDS SUMMARY | 2025-07-18 12:19 | XMS_ITS | Clinical Summary ---
Author Organization [facility] ity Address [id number] [place] [id number] Care Team Providers Care Traveling Nurse Name Role Phone John Thao MD Primary Care Provider [phone] Social History Tobacco Use Types Packs/Day Years [...] age to complete this topic Care Teams Traveling Nurse Relationship Specialty Start Date End Date John Thao MD [address] [place] [address] Dr Vernon MA PCP - General Driver License Agent 10/31/18
--- OUTSIDE RECORDS SUMMARY | 2025-07-18 12:19 | XMS_ITS | Data Portability ---
Author Organization [place] - [facility], Allergy Address [address] [place] [phone] Assessment Encounter Date Assessment Date Assessment LastModified [...] narrowing of GE junction. Study done at [facility]. 2023 024 [email or web address] Negin Olson MD, [address] [place] [address] [place], [address], 03/27/2024 10:40:45 Procedures None recorded. Surgeries None recorded. Imaging None recorded. Medication Orders None recorded. Patient TargetsNo targets recorded. Patient InstructionsNo instructions recorded. Reason for Referral Services Host Referral for Esophageal dysphagia Swallow study findings including cricopharyngeal achalasia, anterior cervical web, severe esophageal dysmotility, and mild narrowing of GE junction. Study done at [facility]. Referring Physician: Whit Sen, Otolaryngology, Encounter [...] contr ast No observ ation record ed. [email or web address] [facility] (Medical Records) [address] [place], [address], 04/07/2025 09:07:47 04/04/20 25 02/04/2025 CT, neck, soft tissu e, w/ contr ast No observ ation record ed. [email or web address] [facility] (Medical Records) [address] [place], [address], 04/07/2025 09:08:05 07/08/20 25 02/04/2025 CT, neck, soft tissu e, w/ contr ast No observ ation record ed. [email or web address] Not Available 2024 11:52:55 Result Notes None recorded. 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; Note: Date Diagnosed : 03/12/2021 2:57 PM (D11.0) Not Available [facility] 4 02:28:25 Bilateral earache 387409098 Active 2021 Otalgia, bilateral ; Note: Date Diagnosed : 2 7:35 AM (H92.03) Not Available [facility] 4 02:28:06 Pharyngea l dysphagia 93708326216 105 Active 2021 Dysphagia , pharyngea l phase; Note: Date Diagnosed : 2 7:35 AM (R13.13) Not Available [facility] 4 02:28:06 Disorder of nasal sinus 9529788 Active 2021 Perforati on of nasal septum NOS; Note: Date Diagnosed : 2 7:35 AM (J34.89) Not Available [facility] 4 02:28:18 Disorder of the nose 63118645 Active 2021 Perforati on of nasal septum NOS; Note: Date Diagnosed : 2 7:35 AM (J34.89) Not Available [facility] 4 02:28:18 Chronic rhinitis 05543148 Active 2021 Chronic rhinitis; Note: Date Diagnosed : 2 7:35 AM (J31.0) Not Available [facility] 4 02:28:31 Sensorine ural hearing loss of bilateral ears 249829813 Active 2022 Sensorine ural hearing loss, bilateral ; Note: Date Diagnosed : 10/07/2022 9:42 AM (H90.3) Not Available [facility] 4 02:28:06 Bilateral tinnitus 22957662781 02 Active 2022 Tinnitus, bilateral ; Note: Date Diagnosed : 10/07/2022 9:42 AM (H93.13) Not Available [facility] 4 02:28:21 Esophagea l dysphagia 72029433 Active 2023 WHIT SEN MD [address] [place] [address], [place], [phone] , [facility] - [facility] 4 16:15:41 Hypertrop hy of lingual tonsil 445748288 Active 2024 WHIT SEN MD [address] [place] [address], [place], [address] , [facility] - [facility] 5 16:37:54 Problem Notes None recorded. Procedures Surgical History Date Name Laterality Status Provider Name and Address Organization Details Recorded Time 04/04/20 25 Air & Speech Audio with Tymps - 05545, 91269 & 85203 completed ELIO MONTAGUE [address] [facility],[place] [address], [place], [address], [place] [facility] [place] 04/04/2025 13:14:54 04/04/20 25 Fiberoptic Laryngoscopy (Comprehensive) completed WHIT SEN MD [address] [facility] [address], [place], [address], [facility] - [facility] [place] 04/05/2025 16:37:47 04/05/20 24 Air & Speech Audio with Tymps - 92908, [address] & [address] completed ELIO LOPEZ [address] [facility] [address], [place], [address], [place] - [facility] [place] 04/05/2024 12:56:46 Imaging Results None recorded. Procedure Notes None recorded. Medical Equipment None Reported. Allergies Allergen ID Allergen Name Allergen Category Reaction Reaction Severity Criticality Documentation Date Start Date Code Code System Note Provider Name and Address Organization Details Recorded Time 44157 Adhesive agent (substanc e) environme nt,medica tion other Not available Not available 01/30/2024 36653 0007 SNOMED React ion: other react ion, Unkno wn; Not Available [facility] 4 00:51:32 60379 valsartan Not available hives Not available Not available 01/30/2024 30785 RxNorm React ion: other react ion, Hives ; Not Available [facility] 4 00:51:32 30779 gabapenti n medicatio n other Not available Not available 01/30/2024 98439 RxNorm React ion: other react ion, Unkno wn; Not Available [facility] 4 00:51:32 71124 ibuprofen medicatio n other Not available Not available 01/30/2024 5640 RxNorm React ion: other react ion, Unkno wn; Not Available [facility] 4 00:51:35 38408 nitrofura ntoin medicatio n hives Not available Not available 01/30/2024 7454 RxNorm React ion: other react ion, Hives ; Not Available [facility] 4 00:51:35 60051 Fish (substanc e) food,medi cation hives Not available Not available 01/30/2024 72301 1005 SNOMED React ion: other react ion, Hives ; Not Available [facility] 4 00:51:36 51066 vancomyci n medicatio n hives Not available Not available 01/30/2024 32941 RxNorm React ion: skin rashe s, hives ;; Not Available [facility] 4 00:51:36 05372 Iodinated contrast media (substanc e) medicatio n hives Not available Not available 01/30/2024 37383 2003 SNOMED React ion: other react ion, Hives ; Not Available [facility] 4 00:51:37 21608 Substance with sulfonami de structure and antibacte rial mechanism of action (substanc e) medicatio n hives Not available Not available 01/30/2024 30229 8003 SNOMED React ion: skin rashe s, hives ;; Not Available [facility] 4 00:51:38 86709 hydrocodo ne Not available other Not available Not available 01/30/2024 5489 RxNorm React ion: other react ion, Unkno wn; Not Available [facility] 4 00:51:39 80681 Product containin g penicilli n (product) medicatio n hives Not available Not available 01/30/2024 82521 8001 SNOMED React ion: skin rashe s, hives ;; Not Available [facility] 4 00:51:40 02445 codeine medicatio n hives Not available Not available 01/30/2024 2670 RxNorm React ion: skin rashe s, hives ;; Not Available [facility] 4 00:51:43 Medications Name Sig Start Date Stop Date Status Note LastModified by Organization Details LastModified Time metoprolol succinate ER 50 mg tablet,exte nded release 24 hr 04/30 completed Medication ID: [id number] Bra nd Name: metoprolol succinate Send Method: E-Prescrib ed Subs Allowed: subs [place] Special Instructio n: TAKE 1 TABLET BY MOUTH EVERY DAY Medica tionGeneri cName: metoprolol succinate Not Available Not Available Not Available sucralfate 1 gram tablet 2020 active Medication ID: [id number] Yajaira nd Name: sucralfate Send Method: E-Prescrib ed Subs Allowed: subs [place] Medicat ionGeneric Name: sucralfate Not Available Not Available Not Available prochlorper azine maleate 10 mg tablet 2020 active Medication ID: [id number] Yajaira nd Name: andrewse razine maleate Se nd Method: E-Prescrib ed Subs Allowed: subs [place] Medicat ionGeneric Name: prochlorpe razine maleate Not Available Not Available Not Available omeprazole 40 mg capsule,del ayed release 04/30 completed Medication ID: [id number] Yajaira nd Name: omeprazole Send Method: E-Prescrib ed Subs Allowed: subs [place] Special Instructio n: TAKE ONE CAPSULE BY MOUTH EVERY DAY Medica tionGeneri cName: omeprazole Not Available Not Available Not Available tramadol 50 mg tablet 04/30 completed Medication ID: [id number] Yajaira nd Name: tramadol S end Method: E-Prescrib ed Subs Allowed: subs [place] Special Instructio n: TAKE 1 TABLET BY MOUTH TWICE A DAY Medica tionGeneri cName: tramadol Not Available Not Available Not Available alprazolam 0.25 mg tablet 04/30 completed Medication ID: [id number] Yajaira nd Name: alprazolam Send Method: E-Prescrib ed Subs Allowed: subs [place] Special Instructio n: TAKE 1 TABLET BY MOUTH TWICE A DAY Medica tionGeneri cName: alprazolam Not Available Not Available Not Available dicyclomine 20 mg tablet 04/30 completed Medication ID: [id number] Yajaira nd Name: dicyclomin e Send Method: E-Prescrib ed Subs Allowed: subs [place] Special Instructio n: TAKE 1 TABLET BY MOUTH 4 TIMES A DAY Medica tionGeneri cName: dicyclomin e Not Available Not Available Not Available levothyroxi ne 50 mcg tablet 04/30 completed Medication ID: [id number] Yajaira nd Name: levothyrox ine Send Method: E-Prescrib ed Subs Allowed: subs [place] Special Instructio n: TAKE 1 TABLET BY MOUTH EVERY DAY Medica tionGeneri cName: levothyrox ine Not Available Not Available Not Available Advair Diskus 250 mcg-50 mcg/dose powder for inhalation 2020 active Medication ID: [id number] Yajaira nd Name: Adv Disk Sen d Method: E-Prescrib ed Subs Allowed: subs [place] Medicat ionGeneric Name: Advair Diskus Not Available Not Available Not Available hydrochloro thiazide 25 mg tablet active Medication ID: [id number] Yajaira nd Name: hydrochlor othiazide Send Method: E-Prescrib ed Subs Allowed: subs [place] Special Instructio n: TAKE 1 TABLET BY MOUTH EVERY DAY Medica tionGeneri cName: hydrochlor othiazide Not Available Not Available Not Available imipramine 10 mg tablet 04/30 completed Medication ID: [id number] Yajaira nd Name: imipramine HCl Send Method: E-Prescrib ed Subs Allowed: subs [place] Special Instructio n: TAKE 1 TABLET BY MOUTH AT BEDTIME Sc dicationGe nericName: imipramine HCl Not Available Not Available Not Available tamoxifen 20 mg tablet 04/30 completed Medication ID: [id number] Yajaira nd Name: tamoxifen Send Method: E-Prescrib ed Subs Allowed: subs [place] Medicat ionGeneric Name: tamoxifen Not Available Not Available Not Available Ventolin HFA 90 mcg/actuati on aerosol inhaler active Medication ID: [id number] Yajaira nd Name: Ventolin HFA Send Method: E-Prescrib ed Subs Allowed: subs [place] Special Instructio n: INHALE 2 PUFFS EVERY 6 HOURS NEEDED FOR SHORTNESS OF BREATH OR WHEEZING M edicationG enericName : Ventolin HFA Not Available Not Available Not Available oxycodone 5 mg tablet 04/04 completed Medication ID: [id number] Yajaira nd Name: oxycodone Send Method: E-Prescrib ed Subs Allowed: subs [place] Special Instructio n: TAKE 1 TABLET BY MOUTH FOUR TIMES A DAY NEEDED Med icationGen ericName: oxycodone Not Available Not Available Not Available Vitamin D3 25 mcg (1,000 unit) tablet 2020 active Medication ID: [id number] Yajaira nd Name: Vitamin D3 Send Method: E-Prescrib ed Subs Allowed: subs [place] Medicat ionGeneric Name: Vitamin D3 Not Available Not Available Not Available Spiriva with HandiHaler 18 mcg and inhalation capsules active Medication ID: [id number] Yajaira nd Name: Spiriva with HandiHaler Send Method: E-Prescrib ed Subs Allowed: subs [place] Special Instructio n: INHALE 1 PUFF BY MOUTH VIA HANDIHANDL ER DAILY Medi cationGene ricName: Spiriva with HandiHaler Not Available Not Available Not Available Vitals Date Recorded Body height Body mass index (BMI) Body weight Provider Name and Address Organization Details Last Updated DateTime 02/23/2024 149.86 cm 39.6 kg/m2 75143.1 viri Felisha Bolivar [place] [facility] 02/23/2024 15:59:29 Date Recorded Body height Body mass index (BMI) Body weight Provider Name and Address Organization Details Last Updated DateTime 04/04/2025 149.86 cm 38.3 kg/m2 26660.75 viri Felisha Bolivar MA [facility] 04/04/2025 13:19:51 Date Recorded Body height Body mass index (BMI) Body weight Provider Name and Address Organization Details Last Updated DateTime 04/05/2024 149.86 cm 39.8 kg/m2 57881.7 viri Felisha Bolivar MA [facility] 04/05/2024 13:08:35 Social History None recorded. Functional Status None recorded. Mental Status None recorded. Family History Nothing Reported. Medical History No medical history recorded. Gynecological HistoryNo gynecological history recorded. 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 [id number] ELIO LOPEZ [facility] [address] [place] [address] 04/05/2024 12:56:28 04/08/2024 13:09:25 Sensorineural hearing loss of bilateral ears 212241037 H90.3 Right Ear:Border line normal hearing through 2K Hz sloping to a moderate SNHL with excellent speech discrimina tion.Type A tympanogra m.Left Ear:Border line normal hearing through 2K Hz sloping to a moderate SNHL with excellent speech discrimina tion.Type A tympanogra m. [id number] WHIT SEN MD [facility] [address] [place] [address] 04/04/2025 12:38:03 04/04/2025 15:11:54 Hypertrophy of lingual tonsil 027651300 J35.1 [id number] I reviewed the report from her recent hospitaliz ation at [facility] but not the images. There was noted to be some lingual tonsil hypertroph y. I did perform flexible laryngosco py and this was not obstructiv e or asymmetric . Sensorineu ral hearing loss of bilateral ears 763673773 H90.3 Hearing is overall stable, but she [...] A Benign mateusz plasm of parotid gland 45003675 D11.0 CT scan showed parotid nodules. 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 No worrisome findings on exam today. There is indistinct fullness at the parotid tail's with a small nodule noted on the right. [id number] ELIO MONTAGUE [facility] [address] [place] [address] 04/04/2025 12:38:51 04/04/2025 15:14:07 Sensorineural hearing loss of bilateral ears 450497072 H90.3 Audiologic al evaluation results: Right ear: [...] Member ID Guarantor Name 04/04/2025 3 [place] [facility] Joelle Keller [id number] Joelle Keller 04/04/2025 1 [place]IC[place] B-[place]: [employer] Joelle Keller [id number] Joelle Keller 04/04/2025 2 [facility] [id number] Joelle Keller [id number] Joelle Keller Notes Date Note Type Note Provider Name and Address Organization Details Recorded Time 02/23/2024 text/html ROS as noted in the HPI 83-year-old female presents today for follow-up after barium swallow. She is having difficulty with swallowing. She is also having some stomach discomfort. She takes omeprazole about every other day and is taking Tums daily. WHIT SEN MD [address] [place] [address], [phone], [facility] - [facility] 02/24/2024 13:03:51 04/05/2024 text/html Since her last [...] interim.Follow up 6 months. WHIT SEN MD [address] [place] [address], [phone], [place] - [facility] 04/06/2024 04:49:50 04/04/2025 text/html Hospitalized last month [...] interim.Follow up 6 months. WHIT SEN MD [address] [place] [address],[address], [address], [place] - [facility] 04/05/2025 16:41:17 OBGyn Episode No OBEpisode recorded.
== END 2025-07-18 11:37 | disposition home or self-care (01) ==
LOC: HO.HMCHD 10:48
PROVIDERS: PCP Physician Assistant; Visit Provider Physician Assistant
DX: W19.XXXA Unspecified fall, initial encounter (principal); R29.898 Other symptoms and signs involving the musculoskeletal system; M47.816 Spondylosis without myelopathy or radiculopathy, lumbar region; G47.00 Insomnia, unspecified

== ENCOUNTER → 2025-07-18 10:47 | Outpatient (BNVA) | payer MEDICARE, SELFPAY | PROVIDERS: PCP Physician Assistant; Visit Provider Physician Assistant | DX: R29.898 Other symptoms and signs involving the musculoskeletal system (principal); M47.816 Spondylosis without myelopathy or radiculopathy, lumbar region; G47.00 Insomnia, unspecified; I10 Essential (primary) hypertension; E03.9 Hypothyroidism, unspecified; K11.8 Other diseases of salivary glands; R13.10 Dysphagia, unspecified; K58.9 Irritable bowel syndrome, unspecified; F41.9 Anxiety disorder, unspecified; J44.89 Other specified chronic obstructive pulmonary disease; Z85.3 Personal history of malignant neoplasm of breast; Z79.891 Long term (current) use of opiate analgesic; Z79.899 Other long term (current) drug therapy; Z91.81 History of falling | CPT/HCPCS: 99212 ==

== ENCOUNTER 2025-08-11 11:11 | Outpatient (REF) | payer MEDICARE, SELFPAY ==
--- NOTE | ~2025-08-11 | XR_ITS ---
EXAMINATION: XR ABDOMEN 1 VIEW (KUB) HISTORY: R19.7 - Diarrhea, unspecified COMPARISON: Comparison is made with the prior examination dated 06/14/2025. FINDINGS: Two supine views of the abdomen are submitted. The bowel gas pattern is unremarkable, without evidence of mechanical obstruction. There is a moderate amount of formed stool throughout the colon. There are surgical clips in the pelvis. No abnormal calcifications are identified. There are no abnormal soft tissue masses. The patient is status post L3 kyphoplasty. XR/XR KUB IMPRESSION: Moderate amount of stool throughout the colon. Electronically signed by: Julian Duke MD 08/11/2025 01:22 PM [facility]
--- OUTSIDE RECORDS SUMMARY | 2025-08-11 16:17 | XMS_ITS | Data Portability ---
Author Organization [place] [facility], Allergy Address [address] [place] [id number] Assessment Encounter Date Assessment Date Assessment LastModified [...] narrowing of GE junction. Study done at [facility]. 2023 024 [id number] Negin Olson MD, [address] [place] [address] [place], [address], 03/27/2024 10:40:45 Procedures None recorded. Surgeries None recorded. Imaging None recorded. Medication Orders None recorded. Patient TargetsNo targets recorded. Patient InstructionsNo instructions recorded. 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 Study done at [facility]. Referring Physician: Whit Sen, Otolaryngology, Encounter Date: 02/23/2024 Results Created Date Observation Date Name Description Value Unit Range Abnormal Flag Note LastModifiedBy Organization Detail LastModifiedTime 04/08/20 audio gram No observ ation record ed. [email or web address] Not Available 03/19 16:22:09 05/09/20 24 10/07/2022 [...] contr ast No observ ation record ed. [email or web address] [facility] (Medical Records) [address] [place], [address], 04/07/2025 09:07:47 04/04/20 25 02/04/2025 CT, neck, soft tissu e, w/ contr ast No observ ation record ed. [facility] (Medical Records) [address] [place], [address], 04/07/2025 09:08:05 07/08/20 25 02/04/2025 CT, neck, soft tissu e, w/ contr ast No observ ation record ed. [email or web address] Not Available 2024 11:52:55 Result Notes None recorded. 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; Note: Date Diagnosed : 03/12/2021 2:57 PM (D11.0) Not Available [facility] 4 02:28:25 Bilateral earache 483128028 Active 2021 Otalgia, bilateral ; Note: Date Diagnosed : 2 7:35 AM (H92.03) Not Available [facility] 4 02:28:06 Pharyngea l dysphagia 88833443462 105 Active 2021 Dysphagia , pharyngea l phase; Note: Date Diagnosed : 2 7:35 AM (R13.13) Not Available [facility] 4 02:28:06 Disorder of nasal sinus 0947793 Active 2021 Perforati on of nasal septum NOS; Note: Date Diagnosed : 2 7:35 AM (J34.89) Not Available [facility] 4 02:28:18 Disorder of the nose 60297053 Active 2021 Perforati on of nasal septum NOS; Note: Date Diagnosed : 2 7:35 AM (J34.89) Not Available [facility] 4 02:28:18 Chronic rhinitis 47858384 Active 2021 Chronic rhinitis; Note: Date Diagnosed : 2 7:35 AM (J31.0) Not Available [facility] 4 02:28:31 Sensorine ural hearing loss of bilateral ears 620161769 Active 2022 Sensorine ural hearing loss, bilateral ; Note: Date Diagnosed : 10/07/2022 9:42 AM (H90.3) Not Available [facility] 4 02:28:06 Bilateral tinnitus 71248690238 02 Active 2022 Tinnitus, bilateral ; Note: Date Diagnosed : 10/07/2022 9:42 AM (H93.13) Not Available [facility] 4 02:28:21 Esophagea l dysphagia 45762638 Active 2023 WHIT SEN MD [address] [place] [address], [place], [address] , [facility] - [facility] 4 16:15:41 Hypertrop hy of lingual tonsil 819782962 Active 2024 WHIT SEN MD [address] [place] [address], [place], [address] , [facility] - [facility] 5 16:37:54 Problem Notes None recorded. Procedures Surgical History Date Name Laterality Status Provider Name and Address Organization Details Recorded Time 04/04/20 25 Air & Speech Audio with Tymps - 27510, 13540 & 24755 completed ELIO MONTAGUE [address] [facility],[place] [address], [place], [address], [place] - [facility] 04/04/2025 13:14:54 04/04/20 25 Fiberoptic Laryngoscopy (Comprehensive) completed WHIT SEN MD [address] [facility] [address], [place], [address], [facility] - [facility] 04/05/2025 16:37:47 04/05/20 24 Air & Speech Audio with Tymps - 59359, 06152 & 92110 completed ELIO LOPEZ [address] [facility] [address], [place], [address], [place] - [facility] 04/05/2024 12:56:46 Imaging Results None recorded. Procedure Notes None recorded. Medical Equipment None Reported. Allergies Allergen ID Allergen Name Allergen Category Reaction Reaction Severity Criticality Documentation Date Start Date Code Code System Note Provider Name and Address Organization Details Recorded Time 91524 Adhesive agent (substanc e) environme nt,medica tion other Not available Not available 01/30/2024 88779 0007 SNOMED React ion: other react ion, Unkno wn; Not Available [facility] 4 00:51:32 88010 valsartan Not available hives Not available Not available 01/30/2024 84162 RxNorm React ion: other react ion, Hives ; Not Available [facility] 4 00:51:32 55351 gabapenti n medicatio n other Not available Not available 01/30/2024 27658 RxNorm React ion: other react ion, Unkno wn; Not Available [facility] 4 00:51:32 74555 ibuprofen medicatio n other Not available Not available 01/30/2024 5640 RxNorm React ion: other react ion, Unkno wn; Not Available [facility] 4 00:51:35 49367 nitrofura ntoin medicatio n hives Not available Not available 01/30/2024 7454 RxNorm React ion: other react ion, Hives ; Not Available [facility] 4 00:51:35 37768 Fish (substanc e) food,medi cation hives Not available Not available 01/30/2024 74622 1005 SNOMED React ion: other react ion, Hives ; Not Available [facility] 4 00:51:36 21261 vancomyci n medicatio n hives Not available Not available 01/30/2024 32263 RxNorm React ion: skin rashe s, hives ;; Not Available [facility] 4 00:51:36 48695 Iodinated contrast media (substanc e) medicatio n hives Not available Not available 01/30/2024 36662 2003 SNOMED React ion: other react ion, Hives ; Not Available [facility] 4 00:51:37 69879 Substance with sulfonami de structure and antibacte rial mechanism of action (substanc e) medicatio n hives Not available Not available 01/30/2024 97130 8003 SNOMED React ion: skin rashe s, hives ;; Not Available [facility] 4 00:51:38 65669 hydrocodo ne Not available other Not available Not available 01/30/2024 5489 RxNorm React ion: other react ion, Unkno wn; Not Available [facility] 4 00:51:39 38233 Product containin g penicilli n (product) medicatio n hives Not available Not available 01/30/2024 08825 8001 SNOMED React ion: skin rashe s, hives ;; Not Available [facility] 4 00:51:40 03742 codeine medicatio n hives Not available Not available 01/30/2024 2670 RxNorm React ion: skin rashe s, hives ;; Not Available [facility] 4 00:51:43 Medications Name Sig Start Date Stop Date Status Note LastModified by Organization Details LastModified Time metoprolol succinate ER 50 mg tablet,exte nded release 24 hr 04/30 completed Medication ID: [id number] Bra nd Name: metoprolol succinate Send Method: E-Prescrib ed Subs Allowed: subs OK Special Instructio n: TAKE 1 TABLET BY MOUTH EVERY DAY Medica tionGeneri cName: metoprolol succinate Not Available Not Available Not Available sucralfate 1 gram tablet 2020 active Medication ID: [id number] Yajaira nd Name: sucralfate Send Method: E-Prescrib ed Subs Allowed: subs OK Medicat ionGeneric Name: sucralfate Not Available Not Available Not Available prochlorper azine maleate 10 mg tablet 2020 active Medication ID: [id number] Yajaira nd Name: andrewse razine maleate Se nd Method: E-Prescrib ed Subs Allowed: subs OK Medicat ionGeneric Name: prochlorpe razine maleate Not Available Not Available Not Available omeprazole 40 mg capsule,del ayed release 04/30 completed Medication ID: [id number] Yajaira nd Name: omeprazole Send Method: E-Prescrib ed Subs Allowed: subs OK Special Instructio n: TAKE ONE CAPSULE BY MOUTH EVERY DAY Medica tionGeneri cName: omeprazole Not Available Not Available Not Available tramadol 50 mg tablet 04/30 completed Medication ID: [id number] Yajaira nd Name: tramadol S end Method: E-Prescrib ed Subs Allowed: subs OK Special Instructio n: TAKE 1 TABLET BY MOUTH TWICE A DAY Medica tionGeneri cName: tramadol Not Available Not Available Not Available alprazolam 0.25 mg tablet 04/30 completed Medication ID: [id number] Yajaira nd Name: alprazolam Send Method: E-Prescrib ed Subs Allowed: subs OK Special Instructio n: TAKE 1 TABLET BY MOUTH TWICE A DAY Medica tionGeneri cName: alprazolam Not Available Not Available Not Available dicyclomine 20 mg tablet 04/30 completed Medication ID: [id number] Yajaira nd Name: dicyclomin e Send Method: E-Prescrib ed Subs Allowed: subs OK Special Instructio n: TAKE 1 TABLET BY MOUTH 4 TIMES A DAY Medica tionGeneri cName: dicyclomin e Not Available Not Available Not Available levothyroxi ne 50 mcg tablet 04/30 completed Medication ID: [id number] Yajaira nd Name: levothyrox ine Send Method: E-Prescrib ed Subs Allowed: subs OK Special Instructio n: TAKE 1 TABLET BY MOUTH EVERY DAY Medica tionGeneri cName: levothyrox ine Not Available Not Available Not Available Advair Diskus 250 mcg-50 mcg/dose powder for inhalation 2020 active Medication ID: [id number] Yajaira nd Name: Adv Disk Sen d Method: E-Prescrib ed Subs Allowed: subs OK Medicat ionGeneric Name: Advair Diskus Not Available Not Available Not Available hydrochloro thiazide 25 mg tablet active Medication ID: [id number] Yajaira nd Name: hydrochlor othiazide Send Method: E-Prescrib ed Subs Allowed: subs OK Special Instructio n: TAKE 1 TABLET BY MOUTH EVERY DAY Medica tionGeneri cName: hydrochlor othiazide Not Available Not Available Not Available imipramine 10 mg tablet 04/30 completed Medication ID: [id number] Yajaira nd Name: imipramine HCl Send Method: E-Prescrib ed Subs Allowed: subs OK Special Instructio n: TAKE 1 TABLET BY MOUTH AT BEDTIME Vt dicationGe nericName: imipramine HCl Not Available Not Available Not Available tamoxifen 20 mg tablet 04/30 completed Medication ID: [id number] Yajaira nd Name: tamoxifen Send Method: E-Prescrib ed Subs Allowed: subs OK Medicat ionGeneric Name: tamoxifen Not Available Not Available Not Available Ventolin HFA 90 mcg/actuati on aerosol inhaler active Medication ID: [id number] Yajaira nd Name: Ventolin HFA Send Method: E-Prescrib ed Subs Allowed: subs OK Special Instructio n: INHALE 2 PUFFS EVERY 6 HOURS NEEDED FOR SHORTNESS OF BREATH OR WHEEZING M edicationG enericName : Ventolin HFA Not Available Not Available Not Available oxycodone 5 mg tablet 04/04 completed Medication ID: [id number] Yajaira nd Name: oxycodone Send Method: E-Prescrib ed Subs Allowed: subs OK Special Instructio n: TAKE 1 TABLET BY MOUTH FOUR TIMES A DAY NEEDED Med icationGen ericName: oxycodone Not Available Not Available Not Available Vitamin D3 25 mcg (1,000 unit) tablet 2020 active Medication ID: [id number] Yajaira nd Name: Vitamin D3 Send Method: E-Prescrib ed Subs Allowed: subs OK Medicat ionGeneric Name: Vitamin D3 Not Available Not Available Not Available Spiriva with HandiHaler 18 mcg and inhalation capsules active Medication ID: [id number] Yajaira nd Name: Spiriva with HandiHaler Send Method: E-Prescrib ed Subs Allowed: subs OK Special Instructio n: INHALE 1 PUFF BY MOUTH VIA HANDIHANDL ER DAILY Medi cationGene ricName: Spiriva with HandiHaler Not Available Not Available Not Available Vitals Date Recorded Body height Body mass index (BMI) Body weight Provider Name and Address Organization Details Last Updated DateTime 02/23/2024 149.86 cm 39.6 kg/m2 49467.1 viri Felisha Bolivar [place] [facility] 02/23/2024 15:59:29 Date Recorded Body height Body mass index (BMI) Body weight Provider Name and Address Organization Details Last Updated DateTime 04/04/2025 149.86 cm 38.3 kg/m2 39200.75 viri Felisha Bolivar MA [facility] 04/04/2025 13:19:51 Date Recorded Body height Body mass index (BMI) Body weight Provider Name and Address Organization Details Last Updated DateTime 04/05/2024 149.86 cm 39.8 kg/m2 13869.7 viri Felisha Bolivar MA [facility] 04/05/2024 13:08:35 Social History None recorded. 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 [id number] ELIO LOPEZ [facility] of [address] [place] [address] 04/05/2024 12:56:28 04/08/2024 13:09:25 Sensorineural hearing loss of bilateral ears 912177304 H90.3 Right Ear:Border line normal hearing through 2K Hz sloping to a moderate SNHL with excellent speech discrimina tion.Type A tympanogra m.Left Ear:Border line normal hearing through 2K Hz sloping to a moderate SNHL with excellent speech discrimina tion.Type A tympanogra m. [id number] WHIT SEN MD [facility] [address] [place] [address] 04/04/2025 12:38:03 04/04/2025 15:11:54 Hypertrophy of lingual tonsil 409163668 J35.1 [id number] I reviewed the report from her recent hospitaliz ation at [facility] but not the images. There was noted to be some lingual tonsil hypertroph y. I did perform flexible laryngosco py and this was not obstructiv e or asymmetric . Sensorineu ral hearing loss of bilateral ears 178950750 H90.3 Hearing is overall stable, but she [...] A Benign mateusz plasm of parotid gland 82984000 D11.0 CT scan showed parotid nodules. 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 No worrisome findings on exam today. There is indistinct fullness at the parotid tail's with a small nodule noted on the right. [id number] ELIO MONTAGUE [facility] [address] [place] [address] 04/04/2025 12:38:51 04/04/2025 15:14:07 Sensorineural hearing loss of bilateral ears 029126846 H90.3 Audiologic al evaluation results: Right ear: [...] Member ID Guarantor Name 04/04/2025 3 [place] [facility] Joelle Keller [id number] Joelle Keller 04/04/2025 1 [place] B[place]: [employer] Joelle Keller [id number] Joelle Keller 04/04/2025 2 [facility] [id number] Joelle Keller [id number] Joelle Keller Notes Date Note Type Note Provider Name and Address Organization Details Recorded Time 02/23/2024 text/html ROS as noted in the HPI 83-year-old female presents today for follow-up after barium swallow. She is having difficulty with swallowing. She is also having some stomach discomfort. She takes omeprazole about every other day and is taking Tums daily. WHIT SEN MD [address] [place] [address], [address], [facility] - [facility] 02/24/2024 13:03:51 04/05/2024 text/html Since her last [...] interim.Follow up 6 months. WHIT SEN MD [address] [place] [address], [address], [place] - [facility] 04/06/2024 04:49:50 04/04/2025 text/html Hospitalized last month [...] interim.Follow up 6 months. WHIT SEN MD [address] [place] [address],[address], [address], [place] - [facility] 04/05/2025 16:41:17 OBGyn Episode No OBEpisode recorded.
[2025-08-11 18:46] LABS: Appearance Urine Clear; Glucose Urine UA Negative (Negative); PH 6.0 (5.0-9.0); Specific Gravity - Urine 1.020 (1.005-1.025)
[2025-08-11 19:08] LABS: Alanine Aminotransferase 15 U/L (0-31); Albumin Level 4.1 g/dL (3.5-5.0); Alkaline Phosphatase 91 U/L (39-117); Anion Gap 14 (12-20); Aspartate Amino Transferase 38 U/L (5-31); Blood Urea Nitrogen 25 mg/dL (9-16); Calcium 10.6 mg/dL (8.4-10.2); Carbon Dioxide 29 mmol/L (22-29); Chloride 104 mmol/L (96-108); Cholesterol 143 mg/dL (<200); Estimated Glomerular Filt Rate 41; HDL Cholesterol 34 mg/dL (>40); Potassium 3.8 mmol/L (3.3-5.1); Sodium 143 mmol/L (135-145); Total Protein 7.4 g/dL (6.5-8.0); Triglycerides 152 mg/dL (<150)
== END 2025-08-11 11:12 | disposition home or self-care (01) ==
LOC: HO.XRAY 11:11
PROVIDERS: Internal Medicine Hypertension Specialist; Physician Assistant; PCP Internal Medicine; Visit Provider Internal Medicine
DX: M81.0 Age-related osteoporosis without current pathological fracture (principal); I10 Essential (primary) hypertension; R30.0 Dysuria; F41.9 Anxiety disorder, unspecified; E03.9 Hypothyroidism, unspecified; J44.89 Other specified chronic obstructive pulmonary disease; M47.816 Spondylosis without myelopathy or radiculopathy, lumbar region; E66.9 Obesity, unspecified; E78.00 Pure hypercholesterolemia, unspecified; R13.10 Dysphagia, unspecified; K58.1 Irritable bowel syndrome with constipation; K58.0 Irritable bowel syndrome with diarrhea; R19.5 Other fecal abnormalities; K68.2 Retroperitoneal fibrosis; Z87.19 Personal history of other diseases of the digestive system; Z79.891 Long term (current) use of opiate analgesic; Z79.899 Other long term (current) drug therapy; Z68.39 Body mass index [BMI] 39.0-39.9, adult
CPT/HCPCS: 36415; 74018; 80048; 80061; 80076; 81001; 83036; 84443; 99212

== ENCOUNTER 2025-08-11 11:11 | Outpatient (AMB) | payer MEDICARE, SELFPAY ==
--- NOTE | 2025-08-11 11:13 | MHC.OFFVIS ---
Vital Signs 08/11/25 11:15 Height 4 ft 9 in Weight 182 lb BMI 39.4 BP 155/66 H Blood Pressure Location Lt brachial Position Sitting Pulse 82 Pulse Oximetry (%) 95 Oxygen Delivery Method Room Air Intake Visit Reasons: 2nd opinion, December pt. Intake Note: Patient 2nd opinion/December former pt. Patient ED follow up for Acute hypokalemia Patient cc: abdominal pain/bloating, nauseas, heartburn on and off, swallowing difficulties, between soft and hard stool, and always tired. Seal Mixing Operator Required: No Accompanied by: Son Allergies gabapentin Allergy (Severe, Verified 08/11/25 11:13) severe urinary incont. codeine (CODEINE) Allergy (Intermediate, Verified 08/11/25 11:13) Rash fish derived (FISH) Allergy (Intermediate, Verified 08/11/25 11:13) HIVES Iodinated Contrast Media (IV Dye, Iodine Containing) Allergy (Intermediate, Verified 08/11/25 11:13) HIVES nitrofurantoin (Nitrofurantoin) Allergy (Intermediate, Verified 08/11/25 11:13) HIVES Sulfa (Sulfonamide Antibiotics) (SULFA (SULFONAMIDE ANTIBIOTICS)) Allergy (Intermediate, Verified 08/11/25 11:13) RASH valsartan (From DIOVAN) Allergy (Intermediate, Verified 08/11/25 11:13) HIVES vancomycin (VANCOMYCIN) Allergy (Intermediate, Verified 08/11/25 11:13) RASH Penicillins (PENICILLINS) Allergy (Mild, Verified 08/11/25 11:13) RASH adhesive (ADHESIVE) Allergy (Unknown, Verified 08/11/25 11:13) UNKNOWN hydrocodone (Vicodin) Allergy (Unknown, Verified 08/11/25 11:13) Unknown sertraline Adverse Reaction (Intermediate, Verified 08/11/25 11:13) nightmares ibuprofen (IBUPROFEN) Adverse Reaction (Unknown, Verified 08/11/25 11:13) UNKNOWN HPI Comments Details: 84-year-old female with PMH of who is here for second opinion for change in bowel habits. Pt was also seen by me in hospital in May 2025 for possible pancreatitis. Has gallstones on US but no surgical intervention recommended at that time. Today, we reviewed that based on index pancreatitis at this age, despite a plausible cause of underlying gallstones would still recommend MRI pancreas protocol to r/o underlying panc cyst or mass. Otherwise ,in terms of her sx describes alternating constipation and diarrhea x years. Last colonoscopy in 2018 (Dr Raygoza) with endoscopic finding of pseudomembranes and colitis but path not available to review. Pt reports days of severe cramping and constipation with difficulty defecating. Often has to digitalize. Followed by loose stools with occ incontinence. No blood instool. No unintentional weight loss. She also reports difficulty swallowing pills. Hx of EGD with dil 2022 with good response. 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 difficile colitis Breast cancer Surgical History History of esophagogastroduodenoscopy (EGD) H/O colonoscopy (~07/25/18) H/O lymph node biopsy Hx of cataract surgery History of tonsillectomy and adenoidectomy H/O hysterectomy for benign disease History of total bilateral knee replacement H/O kyphoplasty Family History Father No problems noted. Mother Breast cancer Sister Breast cancer Social History Household Members: Children Household Members Other:: With Son Julian Housing: House Are you a primary ocular care aide to a significant other at home: No Do you presently have visiting nurse or other home services: No Alcohol intake: never Patient Tobacco Use Status: Former Tobacco user Years Smoked: 10 e-Cigarette/Vaping Use: Never Used Substance Use Type: Marijuana Advance Directives Date on File: 05/16/25 service: No Current occupational status: retired Cognitive needs: No Hearing needs: No Vision needs: Yes (rx glasses) Review of Systems Const All systems reviewed & are unremarkable except as noted in HPI and below Physical Exam Exam Exam: No apparent distress Nonicteric Abdomen soft, nondistended Alert and oriented x3, normal gait Vital Signs: Last Vital Signs Pulse 82 08/11/25 11:15 BP 155/66 H 08/11/25 11:15 Pulse Ox 95 08/11/25 11:15 Oxygen Delivery Method Room Air 08/11/25 11:15 BMI result Body Mass Index 39.4 Assessment & Plan Assessment & Plan (1) Dysphagia: Code(s): R13.10 - Dysphagia, unspecified Category: Medical (2) History of pancreatitis: Code(s): Z87.19 - Personal history of other diseases of the digestive system Category: Medical (3) Irritable bowel syndrome with constipation: Code(s): K58.1 - Irritable bowel syndrome with constipation Category: Medical (4) Overflow diarrhea: Code(s): R19.7 - Diarrhea, unspecified Category: Medical (5) Colitis: Code(s): K52.9 - Noninfective gastroenteritis and colitis, unspecified Category: Medical (6) Elevated fecal calprotectin: Code(s): R19.5 - Other fecal abnormalities Category: Medical Plan 1. Hx of pancreatitis: Plan: - MRI abd pancreas protocol 2. Fluctuating bowel habits: Based on presentation suspicious for underlying IBS-C with overflow diarrhea. Pt cautioned against using antidiarrheals and advised to take a consistent bowel regimen. However given prev hx of ? colitis on colo 2017 and elevated fecal calpro will need a diagnostic colo. Plan: - Check KUB XR for fecal loading - Avoid OTC antidiarrheals - Take fiber as bulking agent - Daily miralax - skip dose for >2 loose BMs - Glycerin supp PRN for fecal impaction - DC creon as no evidence of panc insufficiency at this time - [place] to be scheduled - pt already has PEG prep from prev OV. 3. Dysphagia Mainly to pills. Hx of UES stricture dilation 2023 with good effect. Plan: - EGD to be booked alongside colo Follow up 3 months Orders: Orders MR abdomen wo/w con Today K86.2 - Cyst of pancreas XR KUB Today R19.7 - Diarrhea, unspecified Referrals GI Procedure Notification K52.9 - Noninfective gastroenteritis and colitis, unspecified, R13.10 - Dysphagia, unspecified Medications: New glycerin (child) 2 supp MO ONCE PRN 25 ea 1RF constipation Discontinued rqhtgj-oulhlmdp-ppqqlzd (pork) 12,000-38,000 -60,000 unit (Creon) Discontinued Reason: Doctor's Order 2 caps PO TIDWM 180 caps 0RF Patient Instructions: 1. The stool leakage is possibly due to constipation. 2. Recommend fiber supplementation every day. 3. Take miralax 1 capful every day mixed in a cup of water 4. Take glycerin suppositories for fecal impaction 5. Get XRay of the belly done today. 6. Radiology dept will call you for the appointment for MRI. 7. Office will call you to schedule the upper endoscopy and colonoscopy Coding Level of Care Code Complex visit Add On G2211 Diagnoses Dysphagia R13.10 History of pancreatitis Z87.19 Irritable bowel syndrome with constipation K58.1 Overflow diarrhea R19.7 Colitis K52.9 Elevated fecal calprotectin R19.5
[2025-08-11 11:15] VITALS: BP 155/66; PULSE 82; O2SAT 95; BMI 39.4
--- OUTSIDE RECORDS SUMMARY | 2025-08-11 14:28 | XMS_ITS | Clinical Summary ---
Author Organization [facility] ity Address [id number] [place] [id number] Care Team Providers Care [employer] Consultant Name Role Phone John Thao MD Primary Care Provider [phone] Social History Tobacco Use Types Packs/Day Years [...] Depression Screening 09/18/2024 COVID-19 Vaccine (1 - 2024-2 6 season) 2025 Influenza Vaccine (#1) 2025 HIB [...] age to complete this topic Care Teams [employer] Consultant Relationship Specialty Start Date End Date John Thao MD [address] [place] [address] Dr Vernon MA PCP - General Manuscripts Curator 10/31/18
== END 2025-08-11 12:09 | disposition home or self-care (01) ==
LOC: HO.HGI 11:11
PROVIDERS: PCP Internal Medicine; Visit Provider Internal Medicine
DX: R13.10 Dysphagia, unspecified (principal); Z87.19 Personal history of other diseases of the digestive system; K52.9 Noninfective gastroenteritis and colitis, unspecified; R19.5 Other fecal abnormalities
CPT/HCPCS: 99214; G2211

== ENCOUNTER → 2025-08-11 12:22 | Outpatient (BNV) | payer MEDICARE, SELFPAY | PROVIDERS: PCP Internal Medicine; Visit Provider Radiology Diagnostic Radiology | DX: R19.7 Diarrhea, unspecified (principal) | CPT/HCPCS: 74018 ==

== ENCOUNTER 2025-08-11 13:29 | Outpatient (AMB) | payer MEDICARE, SELFPAY ==
--- NOTE | 2025-08-11 13:35 | MHC.PC.OV ---
Vital Signs 08/11/25 13:40 08/11/25 14:00 Height 4 ft 9 in Weight 82.554 kg BMI 39.4 BP 150/82 H 136/84 Blood Pressure Location Lt brachial Position Sitting Respiration 20 Pulse 78 Pulse Source Pulse Oximeter Temp 97.9 F Temp Source Temporal Artery Scan Pulse Oximetry (%) 97 Oxygen Delivery Method Room Air Intake Visit Reasons: 3 Month F/U Assistant Clinical Nurse Manager Required: No Accompanied by: Son Allergies gabapentin Allergy (Severe, Verified 08/11/25 13:35) severe urinary incont. codeine (CODEINE) Allergy (Intermediate, Verified 08/11/25 13:35) Rash fish derived (FISH) Allergy (Intermediate, Verified 08/11/25 13:35) HIVES Iodinated Contrast Media (IV Dye, Iodine Containing) Allergy (Intermediate, Verified 08/11/25 13:35) HIVES nitrofurantoin (Nitrofurantoin) Allergy (Intermediate, Verified 08/11/25 13:35) HIVES Sulfa (Sulfonamide Antibiotics) (SULFA (SULFONAMIDE ANTIBIOTICS)) Allergy (Intermediate, Verified 08/11/25 13:35) RASH valsartan (From DIOVAN) Allergy (Intermediate, Verified 08/11/25 13:35) HIVES vancomycin (VANCOMYCIN) Allergy (Intermediate, Verified 08/11/25 13:35) RASH Penicillins (PENICILLINS) Allergy (Mild, Verified 08/11/25 13:35) RASH adhesive (ADHESIVE) Allergy (Unknown, Verified 08/11/25 13:35) UNKNOWN hydrocodone (Vicodin) Allergy (Unknown, Verified 08/11/25 13:35) Unknown sertraline Adverse Reaction (Intermediate, Verified 08/11/25 13:35) nightmares ibuprofen (IBUPROFEN) Adverse Reaction (Unknown, Verified 08/11/25 13:35) UNKNOWN Medication List - Last Reconciled 08/11/25 by MYCHAL Mcarthur albuterol sulfate 90 mcg/actuation 2 puffs inhalation Q6H PRN albuterol sulfate 2.5 mg inhalation Q4H PRN docusate sodium (Colace) 100 mg PO DAILY@0800 glycerin (child) 2 supp AZ ONCE PRN hydrochlorothiazide 25 mg PO DAILY levothyroxine 50 mcg PO DAILY@0600 metoclopramide HCl (Reglan) 5 mg PO TID PRN metoprolol succinate ER 50 mg PO DAILY ondansetron HCl 4 mg PO Q8H PRN oxycodone 5 mg PO QID@01,07,13,19 PRN polyethylene glycol 3350 (Miralax) 17 grams PO DAILY rabeprazole (AcipHex) 20 mg PO DAILY@0630 tramadol 50 mg PO BID Tobacco use date assessed: 12/25/24 Dental Screening Dental Screen Date: 12/25/24 HPI HPI Comments History of Present Illness Details 84 year old female with history of asthma-copd overlap, htn, hypothyroidism, long-term opioid use presenting for follow up. Here today with her son HTN: on hctz, metoprolol. BP initially uncontrolled at 150/82. Checks blood pressures at home with systolic blood pressures consistently in the 140s-150s. No headaches were chest pain or vision changes Hypothyroid: on levothyroxine. heme/onc: History of breast cancer. follows with Dr Beauchamp. 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 A sentinel node biopsy on 06/26/2015 was then performed which produced two lymph nodes negative for carcinoma ([id number]). She completed radiation therapy in August 2015 and took 5 years of tamoxifen ENT-benign parotid masses. Dysphagia IBS/Dysphagia-on aciphex. Frequent nausea. Has both reglan and ondansetron. She believes the zofran is working more effectively. HIDA negative for obstruction, unable to tolerate some of the imaging. Gastric emptying. Alternating diarrhea and constipation ongoing years. Currently constipation, no BM in days. No severe pain or vomiting. Has been seen by Gastroenterology earlier today and Creon was discontinued. We will be undergoing endoscopy and colonoscopy. Question overflow diarrhea and started on Colace as well as glycerin tabs BH: Still with anxiety, particulary at bedtime when she cannot sleep. Tried trazodone. Given ambien years ago in oncology. Stopped lorazepam. Stopped sertraline, worsening anxiety issues with these. Does want to try other medications. Doing well COPD/Asthma-follows with pulm. Upcoming visit [facility]. Doing breathing exercises. 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 With facet arthropathy and compression fracture at L3 Concerns: Dysuria ROS: See HPI EXAM: Constitutional - Awake and Alert, No apparent distress Eyes - PERRL Cardiovascular - S1S2, RRR, No edema Respiratory - Normal lung expansion, Normal respiratory effort, No respiratory distress, CTA bilaterally MSK-midline and bilateral paraspinal tenderness to palpation at the level of about L5-S1 into the left SI joint. Extremities - no calf tenderness bilaterally, no swelling Skin - Warm/Dry Neurological - Alert & oriented x3. 4/5 strength LLE, 5/5 strength RLE. 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 difficile colitis Breast cancer Surgical History History of esophagogastroduodenoscopy (EGD) H/O colonoscopy (~07/25/18) H/O lymph node biopsy Hx of cataract surgery History of tonsillectomy and adenoidectomy H/O hysterectomy for benign disease History of total bilateral knee replacement H/O kyphoplasty Family History Father No problems noted. Mother Breast cancer Sister Breast cancer Social History Household Members: Children Household Members Other:: With Son Julian Housing: House Are you a primary child care cook to a significant other at home: No Do you presently have visiting nurse or other home services: No Alcohol intake: never Patient Tobacco Use Status: Former Tobacco user Years Smoked: 10 e-Cigarette/Vaping Use: Never Used Substance Use Type: Marijuana Advance Directives Date on File: 05/16/25 service: No Current occupational status: retired Cognitive needs: No Hearing needs: No Vision needs: Yes (rx glasses) Questionnaire Thrive Questionnaire Date Thrive assessed: 06/15/25 ALLI-7 AMB Questionnaire ALLI-7 Date ALLI - 7 assessed: 12/25/24 Source: Developed by Drs. Julian Martinez, Daya Jose, Jossue Izaguirre and colleagues, with an educational venkatesh from [employer]. Physical exam (Primary Care) Vital Signs: Last Vital Signs Temp 97.9 F 08/11/25 13:40 Pulse 78 08/11/25 13:40 Resp 20 08/11/25 13:40 BP 136/84 08/11/25 14:00 Pulse Ox 97 08/11/25 13:40 Oxygen Delivery Method Room Air 08/11/25 13:40 BMI result Body Mass Index 39.4 Tobacco/Smoking Status: Tobacco use Status Tobacco use date assessed 12/25/24 08/11/25 13:37 Patient Tobacco Use Status Former Tobacco user 08/11/25 13:37 e-Cigarette/Vaping Use Never Used 08/11/25 13:37 Thrive Assessment: Date of Thrive Assessment Date Thrive assessed 06/15/25 08/11/25 13:37 Coding Level of Care Code Est Pt Level 4 (27840) Complex visit Add On G2211 Diagnoses Anxiety F41.9 COPD (chronic obstructive pulmonary disease) J44.9 Hypothyroidism, unspecified type E03.9 Hypothyroidism type: unspecified Degenerative joint disease (DJD) of lumbar spine M47.816 Dysuria R30.0 Primary hypertension I10 Hypertension type: primary hypertension Assessment & Plan Assessment & Plan (1) Anxiety: Code(s): F41.9 - Anxiety disorder, unspecified Category: Medical Plan: Well-controlled at this time. We will continue monitoring (2) COPD (chronic obstructive pulmonary disease): Comment: This patient does have restrictive and obstructive lung disease. Restrictive component is mainly because of her gross obesity. In the past to COPD has remained. relatively controlled Currently she has been treated for an acute exacerbation in the hospital and now still feels congested with cough and increased shortness of breath. Chest x-ray today does not show any infiltrates. Code(s): J44.9 - Chronic obstructive pulmonary disease, unspecified Category: Medical Plan: Stable. Continue maintenance inhalers and albuterol PRN (3) Hypothyroidism: Code(s): E03.9 - Hypothyroidism, unspecified Category: Medical Qualifiers: Hypothyroidism type: unspecified Qualified Code(s): E03.9 - Hypothyroidism, unspecified Plan: TSH with reflex free T4 ordered to be completed several days prior to next visit (4) Degenerative joint disease (DJD) of lumbar spine: Comment: with facet arthropathy and stenosis history of L3 compression fracture status post kyphoplasty Code(s): M47.816 - Spondylosis without myelopathy or radiculopathy, lumbar region Category: Medical Plan: Stable. Unable to tolerate pain with poor quality of life without both oxycodone and tramadol which will be continued (5) Dysuria: Code(s): R30.0 - Dysuria Category: Medical Plan: UA/UC ordered (6) Hypertension: Code(s): I10 - Essential (primary) hypertension Category: Medical Qualifiers: Hypertension type: primary hypertension Qualified Code(s): I10 - Essential (primary) hypertension Plan: Uncontrolled. Add amlodipine 5 mg daily. Continue metoprolol and hydrochlorothiazide. Advised to check blood pressures at home and reach out to the office in about 1 week with blood pressure readings. Low-sodium diet Plan Follow-up in the office in 4 months with labs completed several days prior to visit Continue following with Dr. Ho in Gastroenterology Orders: Orders TSH reflex Free T4 4 Months E03.9 - Hypothyroidism, unspecified, E66.9 - Obesity, unspecified, E78.00 - Pure hypercholesterolemia, unspecified, M81.0 - Age-related osteoporosis without current pathological fracture UA ClnCatch+Micro w/rflx Cult Today R30.0 - Dysuria Basic Metabolic Panel 4 Months E03.9 - Hypothyroidism, unspecified, E66.9 - Obesity, unspecified, E78.00 - Pure hypercholesterolemia, unspecified, M81.0 - Age-related osteoporosis without current pathological fracture Hemoglobin A1c 4 Months E03.9 - Hypothyroidism, unspecified, E66.9 - Obesity, unspecified, E78.00 - Pure hypercholesterolemia, unspecified, M81.0 - Age-related osteoporosis without current pathological fracture Lipid Panel 4 Months E03.9 - Hypothyroidism, unspecified, E66.9 - Obesity, unspecified, E78.00 - Pure hypercholesterolemia, unspecified, M81.0 - Age-related osteoporosis without current pathological fracture Medications: New amlodipine 5 mg PO DAILY 90 tabs 1RF
[2025-08-11 13:40] VITALS: BP 150/82; PULSE 78; RESP 20; TEMP 36.6; O2SAT 97; BMI 39.4
[2025-08-11 14:00] VITALS: BP 136/84
== END 2025-08-11 14:11 | disposition home or self-care (01) ==
LOC: HO.HMCHD 13:29
PROVIDERS: PCP Physician Assistant; Visit Provider Physician Assistant
DX: F41.9 Anxiety disorder, unspecified (principal); J44.9 Chronic obstructive pulmonary disease, unspecified; E03.9 Hypothyroidism, unspecified; M47.816 Spondylosis without myelopathy or radiculopathy, lumbar region; R30.0 Dysuria; I10 Essential (primary) hypertension

== ENCOUNTER → 2025-08-28 08:52 | Outpatient (BNV) | payer MEDICARE, SELFPAY | PROVIDERS: PCP Physician Assistant; Visit Provider Radiology Diagnostic Radiology | DX: K86.2 Cyst of pancreas (principal); K80.20 Calculus of gallbladder without cholecystitis without obstruction; K80.50 Calculus of bile duct without cholangitis or cholecystitis without obstruction; K42.9 Umbilical hernia without obstruction or gangrene; I77.810 Thoracic aortic ectasia | CPT/HCPCS: 74183 ==

== ENCOUNTER 2025-08-28 08:53 | Outpatient (REF) | payer MEDICARE, SELFPAY ==
--- NOTE | ~2025-08-28 | MR_ITS ---
EXAMINATION: MR ABDOMEN WITHOUT AND WITH CONTRAST CLINICAL INFORMATION: K 86.2. Cyst of pancreas. COMPARISON: Correlated to CT dated June 14, 2025. TECHNIQUE: MR abdomen was performed without and with use of 8.5 mL intravenous Gadavist) gadolinium contrast. Postcontrast images are performed in multiphase dynamic sequences. Imaging was performed in 3 planes. No reported immediate complications. FINDINGS: LUNG BASES: No enhancing mass. LIVER, GALLBLADDER, AND BILIARY TREE: Liver measures 13 cm. Nodular surface. No enhancing mass. The arterial phase. Main portal veins, hepatic veins and intrahepatic portion of the IVC are patent. 2 mm nonenhancing fluid signal characteristic lesions in the parenchyma. Gallbladder is of fluid-filled nondistended with a 10 mm fluid signal characteristic lesion in the gallbladder fundus wall. There is an intraluminal 13 mm hypointense T2 lesion gallbladder neck. There are few, 1 mm hyperintense T2 structures in the proximal and distal common bile duct. The common bile duct measures 10 mm in maximum dimension with an abrupt cut off at the region of the sphincter of Oddi. PANCREAS: There is a fatty parenchyma. There is a nonenhancing 3.6 mm fluid signal characteristic lesion in the body of the pancreas. The main pancreatic duct measures 3.9 mm in maximum dimension. No peripancreatic fluid collection. SPLEEN: 8 cm. No solid or cystic mass. ADRENAL GLANDS: No nodular lesions. KIDNEYS AND URETERS: Right kidney: There are least 3, less than 10 mm nonenhancing intrinsic hyperintense T1 exophytic lesions in the lower pole and midportion. There are multifocal, different sizes, nonenhancing fluid signal characteristic lesions, the largest measures 7 cm in the upper pole midportion. No enhancing mass. No hydronephrosis. No dilatation of the ureter. Left kidney: Multifocal, less than 2 cm nonenhancing fluid signal characteristic lesions. No enhancing mass. No hydronephrosis. No dilatation of the ureter. GASTROINTESTINAL TRACT: Abundant stool. No intestinal obstruction pattern. Numerous diverticula, sigmoid colon.. No ascites. ABDOMINAL WALL: Small fat-containing umbilical hernia. LYMPH NODES: No mesenteric or retroperitoneal lymphadenopathy. VASCULAR: 3.8 cm diameter of the distal descending thoracic aorta. 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 OSSEOUS STRUCTURES: Multilevel thoracolumbar spondylosis. Old compression fracture deformities at L4, L3 and T7. Status post kyphoplasty/vertebroplasty at L3. Grade 1 anterolisthesis L3-4 and L4-5 levels. Reverse curvature apex at T7. There is a 3 mm retropulsion of the posterior inferior endplate of T7 abutting the thoracic spinal cord. MR/MR abdomen wo/w con IMPRESSION: Intraductal papillary mucinous neoplasm, main duct type should be considered in the correct clinical settings. 3.6 mm cyst, body pancreas. Cholelithiasis and choledocholithiasis. Multiple likely hemorrhagic/proteinaceous cysts, right kidney. Bilateral simple renal cysts. 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 Small fat-containing umbilical hernia. Old compression fracture deformities, T7, L4 and L3. Grade 1 anterolisthesis L3-4 and L4-5. Electronically signed by: Price Hyde MD 08/28/2025 11:08 AM [facility]
== END 2025-08-28 08:54 | disposition home or self-care (01) ==
LOC: HO.MRI 08:53
PROVIDERS: PCP Physician Assistant; Visit Provider Internal Medicine
DX: K86.2 Cyst of pancreas (principal)
CPT/HCPCS: 74183; A9585

== ENCOUNTER 2025-09-09 10:00 | Day surgery (SDC) | payer MEDICARE, SELFPAY ==
--- NOTE | 2025-09-05 12:19 | P.CONAN_ITS ---
Documented by User: Tomasa Cooper NP 09/05/25 12:25 HPI - Anesthesia Eval Consult details Narrative: 85yo F for Upper Endoscopy and [place] [facility] [place]14[place]25 for abdominal pain; diffuse in nature; SOB nausea and vomiting Hospital Course: Admitted to telemetry where monitor failed to demonstrate any acute dysrhythmias. Initial lipase was up initially at 700 however over the next 48- 72 hours it normalized. Patient was seen in consultation by GI who agreed with conservative management suggestion was to place patient on Creon. Patient did well on Creon and will be discharged with the same. She has a scheduled appointment with GI to follow up. She will follow up with the PCP as well PMFSH Active Problems Active Problems: All Active Problems Hypertension (Acute) Dysuria (Acute) Irritable bowel syndrome with constipation (Acute) History of pancreatitis (Acute) Overflow diarrhea (Acute) Lumbar radiculopathy (Acute) Insomnia (Acute) Left leg weakness (Acute) Fall (Acute) Hospital discharge follow-up (Acute) Chronic diarrhea (Acute) Pancreatitis (Acute) Polypharmacy (Acute) Irritable bowel syndrome with both constipation and diarrhea (Acute) COPD (chronic obstructive pulmonary disease) (Acute) Anxiety (Acute) Axillary lymphadenopathy (Acute) Hip pain (Acute) Hypothyroidism (Acute) Wheezing (Acute) Allergic reaction (Acute) Uvulitis (Acute) Acute anxiety (Acute) COVID-19 (Acute) Multiple food allergies (Acute) Contrast media allergy (Acute) Elevated fecal calprotectin (Acute) Elevated C-reactive protein (CRP) (Acute) Colitis (Acute) Erosive esophagitis (Acute) Dysphagia (Acute) Hypercalcemia (Acute) Lymphadenopathy (Acute) Breast cancer (Chronic) Obesity (Acute) Carpal tunnel syndrome (Acute) Degenerative joint disease (DJD) of lumbar spine (Acute) High cholesterol (Acute) GERD (gastroesophageal reflux disease) (Acute) Osteoporosis (Acute) Past Medical History Medical History Hypertension Lumbar radiculopathy Insomnia Duodenal diverticulum Pancreatitis Gallstones CKD (chronic kidney disease) COPD (chronic obstructive pulmonary disease) Hypothyroidism Acute anxiety Neuropathy of left ulnar nerve at wrist Compression fracture of C1 vertebra 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 difficile colitis Breast cancer Family History Family History Father No problems noted. Mother Breast cancer Sister Breast cancer Surgical History Surgical History History of esophagogastroduodenoscopy (EGD) H/O colonoscopy (~07/25/18) H/O lymph node biopsy Hx of cataract surgery History of tonsillectomy and adenoidectomy H/O hysterectomy for benign disease History of total bilateral knee replacement H/O kyphoplasty History of Problems with Anesthesia: No Social History Social History Household Members: Children Household Members Other:: With Son Julian Housing: House Are you a primary caregivers homecare to a significant other at home: No Do you presently have visiting nurse or other home services: Yes Alcohol intake: never Patient Tobacco Use Status: Former Tobacco user Years Smoked: 10 e-Cigarette/Vaping Use: Never Used Substance Use Type: Marijuana Advance Directives Date on File: 05/16/25 service: No Current occupational status: retired Cognitive needs: No Hearing needs: No Vision needs: Yes (rx glasses) Meds Allergies Allergy/AdvReac Type Severity Reaction Status Date / Time gabapentin Allergy Severe severe Verified 09/09/25 11:05 urinary incont. codeine (CODEINE) Allergy Intermediate Rash Verified 09/09/25 11:05 fish derived (FISH) Allergy Intermediate HIVES Verified 09/09/25 11:05 Iodinated Contrast Media (IV Allergy Intermediate HIVES Verified 09/09/25 11:05 Dye, Iodine Containing) nitrofurantoin Allergy Intermediate HIVES Verified 09/09/25 11:05 (Nitrofurantoin) Sulfa (Sulfonamide Allergy Intermediate RASH Verified 09/09/25 11:05 Antibiotics) (SULFA (SULFONAMIDE ANTIBIOTICS)) valsartan (From DIOVAN) Allergy Intermediate HIVES Verified 09/09/25 11:05 vancomycin (VANCOMYCIN) Allergy Intermediate RASH Verified 09/09/25 11:05 Penicillins (PENICILLINS) Allergy Mild RASH Verified 09/09/25 11:05 adhesive (ADHESIVE) Allergy Unknown UNKNOWN Verified 09/09/25 11:05 hydrocodone (Vicodin) Allergy Unknown Unknown Verified 09/09/25 11:05 sertraline AdvReac Intermediate nightmares Verified 09/09/25 11:05 ibuprofen (IBUPROFEN) AdvReac Unknown UNKNOWN Verified 09/09/25 11:05 Home Medications ?Medication ?Instructions ?Recorded ?Confirmed ?Last Taken ?Type metoprolol succinate 50 mg 50 mg PO DAILY 06/15/2009/09/25 History tablet,extended release 24 hr albuterol sulfate 2.5 mg/3 mL 2.5 mg inhalation Q4H IN N for 03/25/24 09/05/25 09/09/25 History (0.083 %) solution for nebulization wheezing docusate sodium 100 mg capsule 100 mg PO DAILY@0800 09/05/25 06/14/25 History (Colace) rabeprazole 20 mg tablet,delayed 20 mg PO DAILY@0630 0 06/14/25 09/05/25 06/14/25 History release (AcipHex) Exam Pertinent Lab Results Pertinent Lab Results: Laboratory Tests 06/19/25 08/11/25 06:20 15:13 WBC 13.3 H Hgb 11.6 L Hct 34.4 L Plt Count 262 Sodium 143 Potassium 3.8 Chloride 104 Carbon Dioxide 29 BUN 25 H Creatinine 1.23 Narrative Narrative: EKG 05/2027 Vent. Rate : 75 BPM Atrial Rate : 75 BPM P-R Int : 158 ms QRS Dur : 78 ms QT Int : 496 ms P-R-T Axes : 44 23 78 degrees QTcB Int : 553 ms Sinus rhythm with Premature atrial complexes Possible Inferior infarct (cited on or before 25-Aug-2019) Abnormal ECG When compared with ECG of 16-May-2025 07:50, Premature atrial complexes are now Present T wave inversion no longer evident in Lateral leads QT has lengthened ECHO 04/2025 Conclusions: - The left ventricular systolic function is hyperdynamic. The visually estimated ejection fraction is >70%. - Aortic valve sclerosis but no significant stenosis. - There is no evidence of pulmonary hypertension. Abdominal MRI 08/2025 MR abdomen wo/w con IMPRESSION: Intraductal papillary mucinous neoplasm, main duct type should be considered in the correct clinical settings. 3.6 mm cyst, body pancreas. Cholelithiasis and choledocholithiasis. Multiple likely hemorrhagic/proteinaceous cysts, right kidney. Bilateral simple renal cysts. 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 Small fat-containing umbilical hernia. Old compression fracture deformities, T7, L4 and L3. Grade 1 anterolisthesis L3-4 and L4-5. CXR 05/2025 IMPRESSION: 1. No acute findings. 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 difficile colitis Breast cancer Family History Family History Father No problems noted. Mother Breast cancer Sister Breast cancer Family history of problems with anesthesia: No Surgical History Surgical History History of esophagogastroduodenoscopy (EGD) H/O colonoscopy (~07/25/18) H/O lymph node biopsy Hx of cataract surgery History of tonsillectomy and adenoidectomy H/O hysterectomy for benign disease History of total bilateral knee replacement H/O kyphoplasty Social History Social History Household Members: Children Household Members Other:: With Son Julian Housing: House Are you a primary caregivers homecare to a significant other at home: No Do you presently have visiting nurse or other home services: Yes Alcohol intake: never Patient Tobacco Use Status: Former Tobacco user Years Smoked: 10 e-Cigarette/Vaping Use: Never Used Substance Use Type: Marijuana Advance Directives Date on File: 05/16/25 service: No Current occupational status: retired Cognitive needs: No Hearing needs: No Vision needs: Yes (rx glasses) Meds Allergies Allergy/AdvReac Type Severity Reaction Status Date / Time gabapentin Allergy Severe severe Verified 09/09/25 11:05 urinary incont. codeine (CODEINE) Allergy Intermediate Rash Verified 09/09/25 11:05 fish derived (FISH) Allergy Intermediate HIVES Verified 09/09/25 11:05 Iodinated Contrast Media (IV Allergy Intermediate HIVES Verified 09/09/25 11:05 Dye, Iodine Containing) nitrofurantoin Allergy Intermediate HIVES Verified 09/09/25 11:05 (Nitrofurantoin) Sulfa (Sulfonamide Allergy Intermediate RASH Verified 09/09/25 11:05 Antibiotics) (SULFA (SULFONAMIDE ANTIBIOTICS)) valsartan (From DIOVAN) Allergy Intermediate HIVES Verified 09/09/25 11:05 vancomycin (VANCOMYCIN) Allergy Intermediate RASH Verified 09/09/25 11:05 Penicillins (PENICILLINS) Allergy Mild RASH Verified 09/09/25 11:05 adhesive (ADHESIVE) Allergy Unknown UNKNOWN Verified 09/09/25 11:05 hydrocodone (Vicodin) Allergy Unknown Unknown Verified 09/09/25 11:05 sertraline AdvReac Intermediate nightmares Verified 09/09/25 11:05 ibuprofen (IBUPROFEN) AdvReac Unknown UNKNOWN Verified 09/09/25 11:05 Home Medications ?Medication ?Instructions ?Recorded ?Confirmed ?Last Taken ?Type metoprolol succinate 50 mg 50 mg PO DAILY 06/15/2009/09/25 History tablet,extended release 24 hr albuterol sulfate 2.5 mg/3 mL 2.5 mg inhalation Q4H IN N for 03/25/24 09/05/25 09/09/25 History (0.083 %) solution for nebulization wheezing docusate sodium 100 mg capsule 100 mg PO DAILY@0800 09/05/25 06/14/25 History (Colace) rabeprazole 20 mg tablet,delayed 20 mg PO DAILY@0630 0 06/14/25 09/05/25 06/14/25 History release (AcipHex) Exam Airway TM Dist: >3cm Assessment and Plan Assessment Anesthesia Assessment: Anesthesia Plan Discussed Final Anesthetic Review Family History of Problems with Anesthesia: No NPO: Yes ASA Class: III Final Preanesthetic Review: No Changes in Pt Med Stat, Meds/Allgs Chart Revi ewed, Consent Obtained/Reviewed and Anes Risks/Benef Reviewed Patient Risk: Intermediate Procedure Risk: Low Anesthetic Plan Anesthetic Plan: MAC: Disposition: Standard PACU
[2025-09-05 14:06] VITALS: BMI 39.4
[2025-09-09] MEDS: Lactated Ringers 1,000 ML 100 ML IVCONT (10:35)
--- NOTE | 2025-09-09 10:40 | MHC.SHP ---
Pre-Procedural Eval Section A - 24 Hr Update-Section A only Date of Service: 09/09/25 The patient is an INPATIENT: No The patient has been examined within 24 hours of the surgical procedure. The History & Physical has been completed within 30 days and I have reviewed it.: Yes Section B - Complete if H&P > 30 days Chief Complaint: Noninfective gastroenteritis and colitis,dysphagia Allergies: Allergies Allergy/AdvReac Type Severity Reaction Status Date / Time gabapentin Allergy Severe severe Verified 08/11/25 13:35 urinary incont. codeine (CODEINE) Allergy Intermediate Rash Verified 08/11/25 13:35 fish derived (FISH) Allergy Intermediate HIVES Verified 08/11/25 13:35 Iodinated Contrast Media (IV Allergy Intermediate HIVES Verified 08/11/25 13:35 Dye, Iodine Containing) nitrofurantoin Allergy Intermediate HIVES Verified 08/11/25 13:35 (Nitrofurantoin) Sulfa (Sulfonamide Allergy Intermediate RASH Verified 08/11/25 13:35 Antibiotics) (SULFA (SULFONAMIDE ANTIBIOTICS)) valsartan (From DIOVAN) Allergy Intermediate HIVES Verified 08/11/25 13:35 vancomycin (VANCOMYCIN) Allergy Intermediate RASH Verified 08/11/25 13:35 Penicillins (PENICILLINS) Allergy Mild RASH Verified 08/11/25 13:35 adhesive (ADHESIVE) Allergy Unknown UNKNOWN Verified 08/11/25 13:35 hydrocodone (Vicodin) Allergy Unknown Unknown Verified 08/11/25 13:35 sertraline AdvReac Intermediate nightmares Verified 08/11/25 13:35 ibuprofen (IBUPROFEN) AdvReac Unknown UNKNOWN Verified 08/11/25 13:35 Plan Diagnosis/Plan: Unchanged I have reviewed the history and physical and performed a pertinent physical examination on my patient. No changes have occurred unless specified. Time Spent With Patient Time: Total time managing care of this patient today ____ minutes.
[2025-09-09] MEDS: Albuterol Sulfate (0.083%) 2.5 MG/3 ML VIAL.NEB INHALE (10:55)
[2025-09-09 10:59] VITALS: BMI 39.6
[2025-09-09 11:02] VITALS: BP 134/70; PULSE 81; RESP 18; TEMP 36.7; O2SAT 97
[2025-09-09 13:43] VITALS: BP 161/90; PULSE 84; RESP 16; TEMP 36.4; O2SAT 99
--- NOTE | 2025-09-09 13:52 | P.OPN-COLO_ITS ---
Colonoscopy Operative Note Operative Note Date of Service: 09/09/25 Narrative: Procedure: Upper endoscopy and colonoscopy Indication: Dysphagia, change in bowel habits Endoscopist: Alexandra Ho MD Anesthesia Provider: Dr Reed Connell Anesthesia type: MAC Instrument: [id number], [id number] and [id number] EGD Procedure:?? The procedure, indications, preparation and potential complications were reviewed with the patient, who indicated understanding and gave written informed consent to proceed. The endoscope was introduced through the mouth, and advanced to the 2nd part of the duodenum. The mucosa was carefully examined on slow withdrawal of the endoscope. The patient tolerated the procedure well. There were no immediate complications.? EGD Findings:? * Esophagus:? Normal esophageal mucosa was noted. The Z-line was at 38 cm. * Stomach:? Normal gastric mucosa. Retroflexion was performed in the cardia. * Duodenum:? Normal duodenal mucosa. Additional intervention: Soft tip Savary wire was introduced through the biopsy channel of the gastroscope and advanced to the antrum. ?The gastroscope was then backed out. ?Savary Anurag bougie was advanced over the guidewire and the esophagus was dilated to 19 mm with resistance felt. ?On relook, heme and superficial tear was noted at 15 cm and again at 35 cm. ? Colonoscopy Procedure:? The patient was then turned for the colonoscopy. A digital rectal exam was performed which was abnormal.? A distal attachment cap was affixed to the tip of the scope and the colonoscope was then inserted through the anus and advanced through the colon to sigmoid colon.? Mucosa was carefully examined under high definition white light as the instrument was slowly withdrawn in a retrograde panoramic fashion. The procedure could not be completed due to sharp angulation in distal sigmoid colon which could not be traversed despite pressure application, change in scope and change in patient position. The procedure was ultimately terminated. Total procedure time for colonoscopy attempt was 25 minutes. Limitations: Incomplete colonoscopy Findings: Protruding lesions: * 1 sessile polyp of size 8 mm in rectum. Cold snare polypectomy was performed. The polyp was completely removed and retrieved. * Small internal hemorrhoids without stigmata of recent bleeding. Excavated lesions: * Severe diverticulosis of sigmoid colon Impression: 1. Esophageal strictures (dilation) 2. Normal stomach 3. Normal duodenum 4. Incomplete colonoscopy 5. 1 polyp removed 6. Diverticulosis 7. Internal and external hemorrhoids Recommendations:?? * Follow-up path results * Will order barium enema as outpatient to delineate anatomy as well as to r/o large polyps
[2025-09-09 13:58] VITALS: BP 135/65; PULSE 81; RESP 22; O2SAT 94
[2025-09-09 14:13] VITALS: BP 140/66; PULSE 82; RESP 22; O2SAT 95
[2025-09-09 14:28] VITALS: BP 126/62; PULSE 85; RESP 18; TEMP 36.7; O2SAT 96
== END 2025-09-09 14:54 | disposition home or self-care (01) ==
PROVIDERS: PCP Internal Medicine Nephrology; Visit Provider Internal Medicine
PROC: (CPT 45338; principal; 2025-09-09 12:30)
DX: K52.9 Noninfective gastroenteritis and colitis, unspecified (principal); R13.10 Dysphagia, unspecified; R19.5 Other fecal abnormalities; Z87.19 Personal history of other diseases of the digestive system; K64.8 Other hemorrhoids; K57.30 Diverticulosis of large intestine without perforation or abscess without bleeding; D12.7 Benign neoplasm of rectosigmoid junction
CPT/HCPCS: 45338; 43239; 43248; 88305; C1769; J2003; J2704

== ENCOUNTER → 2025-09-09 10:00 | Outpatient (BNV) | payer MEDICARE, SELFPAY | PROVIDERS: PCP Internal Medicine Nephrology; Visit Provider Internal Medicine | DX: R13.10 Dysphagia, unspecified (principal); R19.4 Change in bowel habit; D12.8 Benign neoplasm of rectum; K57.30 Diverticulosis of large intestine without perforation or abscess without bleeding; K64.8 Other hemorrhoids | CPT/HCPCS: 43248; 45338 ==